=== PATIENT | female | born 1970 | race African-American/Black ===

== ENCOUNTER 2016-08-03 16:12 | Emergency (ER) | payer MEDICARE, MEDICAID ==
[~2016-08-03] VITALS: Ht 175.3 cm; Wt 72.6 kg
[~2016-08-03 16:12] MED LIST: /DULO30CA OR; /FEXO18TA PO; /LANS30GR PO; /QUET10TA OR; ABIL10TA; ALLE180T33 PO; ATIV1TAB2 PO; BACL-67 PO; BACL10TA2 PO; BIOF4GEL2 TOP; COLA100C2 PO; COLA100C3 PO; CONS10SO3 PO; CONSTULOSE PO; CYMB60CA3 PO; DEPA250T32 PO; DEPA500T2 PO; DEPLIN; ESTR2TAB OR; FERR325T PO; FERR325T3 PO; FIBE625T PO; FIBERCON PO; FLON1SPR; FOLI1TAB2 PO; KARI28TA PO; LORA1TAB12 PO; LORA2TAB9 PO; MELOPOW; MILKSUS PO; MIRCETTE; MULTIVIT PO; MULTTAB24 PO; OMEG100011 PO; OMEGA 3 PO; PAXI10TA; PERI0.126 MT; PRIL20CA9 PO; QUET30TA OR; RYZOLT PO; SERO1TAB2 PO; SERO400T3 PO; SING10TA32 PO; TOPA200T6 PO; TOPI200T PO; TRAM300T9 PO; ULTRTA; VALI10TA PO; VITA250T PO; VITA500T88 PO; [UNRECOGNIZED DRUG - OTHER]; [UNRECOGNIZED DRUG - OTHER]; [UNRECOGNIZED DRUG - OTHER] PR; [UNRECOGNIZED DRUG - OTHER] TOP
[2016-08-03 17:40] LABS: BASO % 0.4 % (0.0-1.0); EOS % 0.7 % (0.0-3.0); LARGE UNSTAINED CELL # 0.2 K/mm3 (0.0-0.4); LARGE UNSTAINED CELL % 2.7 % (0.0-4.0); LYMPH # 2.5 K/mm3 (1.5-4.5); LYMPH % 43.7 % (24.0-44.0); MEAN CORPUSCULAR HGB CONC 30.9 g/dl (32.0-36.5); MONO # 0.4 K/mm3 (0.0-0.8); MONO % 7.6 % (0.0-5.0); NEUTROPHILS # 2.5 K/mm3 (1.8-7.7); NEUTROPHILS % 44.9 % (36.0-66.0); PLATELET COUNT, AUTOMATED 193 k/mm3 (150-450); RED CELL DISTRIBUTION WIDTH 12.7 % (11.5-14.5); WHITE BLOOD COUNT 5.4 K/mm3 (4.0-10.0)
[2016-08-03 18:05] LABS: ANION GAP 4 MEQ/L (8-16); BLOOD UREA NITROGEN 13 MG/DL (7-18); CALCIUM LEVEL 9.3 MG/DL (8.5-10.1); CARBON DIOXIDE LEVEL 29 MEQ/L (21-32); CHLORIDE LEVEL 109 MEQ/L (98-107); CREATININE FOR GFR 0.78 MG/DL (0.55-1.02); GLOMERULAR FILTRATION RATE > 60.0 (>58); GLUCOSE, FASTING 100 MG/DL (70-105); POTASSIUM SERUM 4.4 MEQ/L (3.5-5.1); SODIUM LEVEL 142 MEQ/L (136-145)
[2016-08-03 19:31] VITALS: BP 155/92
== END 2016-08-03 19:32 | disposition home or self-care (01) ==
LOC: M ED 17:59
DX: R68.0 Hypothermia, not associated with low environmental temperature (principal); F41.9 Anxiety disorder, unspecified; F78 Other intellectual disabilities; Z79.899 Other long term (current) drug therapy; Z79.891 Long term (current) use of opiate analgesic

== ENCOUNTER → 2016-08-04 | Day surgery (SDC) | payer MEDICARE, MEDICAID ==
[~2016-08-04] VITALS: Ht 165.1 cm; Wt 74.8 kg
[~2016-08-04] MED LIST changes: +LIDOCAINE 2% W/ EPINEPHRINE 1.7 ML DENTAL INJ As Ordered ONE; +LR 1,000 ML IV SCH; +MIDAZOLAM INJ 2 MG/2 ML VIAL (J2250) As Ordered ONE; +ONDANSETRON 4MG/2ML VIAL (J2405) As Ordered ONE; +ONDANSETRON 4MG/2ML VIAL (J2405) IV PRN; +OXYMETAZOLINE NASAL SPRAY (AFRIN) As Ordered ONE; +PERCOCET 5MG/325MG TAB PO PRN; +PROPOFOL 200 MG/20 ML VIAL As Ordered ONE; +ROCURONIUM BROMIDE 50 MG/5 ML VIAL As Ordered ONE; +dexameTHASONE 4 MG/ML 1ML VIAL (J1100) As Ordered ONE; +fentaNYL 100 MCG/2 ML INJECTION (J3010) IV PRN; +fentaNYL 250 MCG/5 ML INJECTION (J3010) As Ordered ONE
[2016-08-04] MEDS: LR 1,000 ML IV SCH ×2 (10:42→11:04)
[2016-08-04 11:42] VITALS: BP 128/84
--- NOTE | 2016-08-04 16:58 | RO ---
DATE OF PROCEDURE: 08/04/2016 PREOPERATIVE DIAGNOSIS: Carious and nonrestorable tooth 19. POSTOPERATIVE DIAGNOSIS: Carious and nonrestorable tooth 19. PROCEDURE PERFORMED: Surgical removal of tooth 19. SURGEON: Dr. Silva EDUCATIONAL PROGRAM DIRECTOR: ANESTHESIA: General endotracheal. INDICATIONS: The patient is a 46-year-old female client of the [facility] ([facility]) who presents with a history of being mentally challenged with osteoarthritic on multiple medications. Due to the extent of the procedure to be performed it was felt necessary to be performed in the operating room under general anesthesia. DESCRIPTION OF PROCEDURE: The patient was brought to the operating room (OR) per anesthesia and placed supine upon the OR table, wherein general endotracheal anesthesia was undertaken without difficulty. After sterile prep for an intraoral procedure was performed, a throat pack was placed. 2% Xylocaine with 1:100,000 ep[address] was injected by way by of infiltration fashion, approximately 1.5 mL. Attention turned to the area of tooth 19. A #15 scalpel blade used to make a buccal sulcular mucoperiosteal incision carried from 18 forward to the area of 20. Full thickness flap was then raised with a periosteal elevator, exposing the area of the broken-down remaining crown and retrained roots. Heavy carious portions of the crown were removed and the root structures were then elevated and removed without difficulty. The bone was smoothed. The socket was lightly curetted lightly and irrigated. The tissues were then closed with Gelfoam and #3-0 gut interrupted suture times two for hemostasis. At the termination of the procedure , the oropharynx was inspected and found to be free of debris. The throat pack was removed per anesthesia and the patient was awakened. ESTIMATED BLOOD LOSS: Approximately minimal. It was less than10 mL. FLUIDS: 700 mL crystalloid solution. Needle and sponge counts were correct. The tooth was sent for identification to pathology. DISPOSITION: The patient was extubated in the operating room and taken to the recovery room breathing spontaneously in stable condition. JUSTIN
== END | disposition home or self-care (01) ==
LOC: M SDC 08:30
PROVIDERS: ATTEND Dentist Oral and Maxillofacial Surgery
DX: K03.81 Cracked tooth (principal); K08.3 Retained dental root; F79 Unspecified intellectual disabilities; M17.0 Bilateral primary osteoarthritis of knee; G89.29 Other chronic pain; K59.09 Other constipation; K21.9 Gastro-esophageal reflux disease without esophagitis; D50.9 Iron deficiency anemia, unspecified; Z79.899 Other long term (current) drug therapy
CPT/HCPCS: 41899; 88300; J1100; J2250; J2405; J3010

== ENCOUNTER → 2016-09-01 | Outpatient (CLI) | payer MEDICARE, MEDICAID ==
[~2016-09-01] MED LIST changes: -LIDOCAINE 2% W/ EPINEPHRINE 1.7 ML DENTAL INJ As Ordered ONE; -LR 1,000 ML IV SCH; -MIDAZOLAM INJ 2 MG/2 ML VIAL (J2250) As Ordered ONE; -ONDANSETRON 4MG/2ML VIAL (J2405) As Ordered ONE; -ONDANSETRON 4MG/2ML VIAL (J2405) IV PRN; -OXYMETAZOLINE NASAL SPRAY (AFRIN) As Ordered ONE; -PERCOCET 5MG/325MG TAB PO PRN; -PROPOFOL 200 MG/20 ML VIAL As Ordered ONE; -ROCURONIUM BROMIDE 50 MG/5 ML VIAL As Ordered ONE; -dexameTHASONE 4 MG/ML 1ML VIAL (J1100) As Ordered ONE; -fentaNYL 100 MCG/2 ML INJECTION (J3010) IV PRN; -fentaNYL 250 MCG/5 ML INJECTION (J3010) As Ordered ONE
--- NOTE | 2016-09-01 12:46 | REPMRS ---
Patient History The patient states she had a clinical breast exam in 09/13 Patient is postmenopausal. No known family history of cancer. Taking hormonal contraceptives for 16 years. Digital Woman Screen Mammo: September 01, 2016 - Exam #: [id number] Bilateral CC and MLO view(s) were taken. Technologist: Haley Alexander, Technologist Prior study comparison: September 03, 2015, digital woman screen mammo performed at [facility]. August 21, 2014, digital woman screen mammo performed at [facility]. FINDINGS: There are scattered fibroglandular densities. There has been no change in the appearance of the mammogram from the prior studies. There is a mild amount of residual fibroglandular tissue which is fairly symmetric. There is no interval development of dominant mass, architectural distortion, or clustered microcalcification suggestive of malignancy. ASSESSMENT: BI-RADS/ACR category 1 mammogram. Negative. Recommendation Routine screening mammogram in 1 year (for women over age 40). This mammogram was interpreted with the aid of an FDA-approved computer-aided dectection system. Electronically Signed By: Ezio Piper MD 09/01/16 5227
== END ==
LOC: M WHC 10:07
PROVIDERS: ATTEND Nurse Practitioner Family
DX: Z01.419 Encounter for gynecological examination (general) (routine) without abnormal findings (principal); Z12.31 Encounter for screening mammogram for malignant neoplasm of breast; Z78.0 Asymptomatic menopausal state; Z92.0 Personal history of contraception; Z79.899 Other long term (current) drug therapy; N91.2 Amenorrhea, unspecified
CPT/HCPCS: G0101; G0202

== ENCOUNTER 2017-09-26 08:35 | Day surgery (SDC) | payer MEDICARE, MEDICAID ==
[~2017-09-26 08:35] MED LIST changes: -/DULO30CA OR; -/FEXO18TA PO; -/LANS30GR PO; -/QUET10TA OR; -ABIL10TA; +ACETAMINOPHEN 325 MG TAB PO; -ALLE180T33 PO; -ATIV1TAB2 PO; -BACL-67 PO; -BACL10TA2 PO; -BIOF4GEL2 TOP; -COLA100C2 PO; -COLA100C3 PO; -CONS10SO3 PO; -CONSTULOSE PO; -CYMB60CA3 PO; -DEPA250T32 PO; -DEPA500T2 PO; -DEPLIN; -ESTR2TAB OR; -FERR325T PO; -FERR325T3 PO; -FIBE625T PO; -FIBERCON PO; -FLON1SPR; -FOLI1TAB2 PO; -KARI28TA PO; -LORA1TAB12 PO; -LORA2TAB9 PO; -MELOPOW; -MILKSUS PO; -MIRCETTE; -MULTIVIT PO; -MULTTAB24 PO; -OMEG100011 PO; -OMEGA 3 PO; -PAXI10TA; -PERI0.126 MT; +PHENYLEPHRINE HCL 10 % OPHTH. SOL 5ML OD; -PRIL20CA9 PO; -QUET30TA OR; -RYZOLT PO; -SERO1TAB2 PO; -SERO400T3 PO; -SING10TA32 PO; -TOPA200T6 PO; -TOPI200T PO; -TRAM300T9 PO; -ULTRTA; -VALI10TA PO; -VITA250T PO; -VITA500T88 PO; -[UNRECOGNIZED DRUG - OTHER]; -[UNRECOGNIZED DRUG - OTHER]; -[UNRECOGNIZED DRUG - OTHER] PR; -[UNRECOGNIZED DRUG - OTHER] TOP
[2017-09-26] MEDS ORDERED: PHENYLEPHRINE 2.5% OPHTH SOL 2ML As Ordered (08:55)
[2017-09-26] MEDS ORDERED: OFLOXACIN 0.3 % (OCUFLOX) OPTH SOL 5ML As Ordered (08:55)
[2017-09-26] MEDS ORDERED: TROPICAMIDE 1% OPHTH SOLN 2ML As Ordered (08:55)
[2017-09-26] MEDS ORDERED: CYCLOPENTOLATE 2% OPHTH SOLN 2ML BTL As Ordered (08:55)
[2017-09-26] MEDS ORDERED: diazePAM 5 MG TAB As Ordered (09:19)
[2017-09-26] MEDS: TROPICAMIDE 1% OPHTH SOLN 2ML OD (09:33)
[2017-09-26] MEDS: LIDOCAINE 3.5 % 1ML OPHTH TOPICAL GEL OU (09:33)
[2017-09-26] MEDS: OFLOXACIN 0.3 % (OCUFLOX) OPTH SOL 5ML OD (09:33)
[2017-09-26] MEDS: CYCLOPENTOLATE 2% OPHTH SOLN 2ML BTL OD (09:33)
[2017-09-26] MEDS: PHENYLEPHRINE 2.5% OPHTH SOL 2ML OD (09:33)
[2017-09-26] MEDS ORDERED: PROPOFOL 200 MG/20 ML VIAL As Ordered ×2 (09:40→10:05)
[2017-09-26] MEDS ORDERED: diazePAM 5 MG TAB PO (10:00)
[2017-09-26] MEDS: TRIAMCINOLONE PRES FR 40 MG/ML 1ML(TRIESENCE)(OR EYE ONLY)(J3300 PER 1MG) As Ordered (10:19)
[2017-09-26] MEDS: MOXIFLOXACIN IN BSS 0.25MG/0.25ML INTRACAMERAL INJ (OR EYE ONLY)(J2280) As Ordered (10:19)
[2017-09-26] MEDS: HEALON DUET (HEALON 10MG/ML 0.55ML & HEALON ENDOCOAT 30MG/ML 0.85ML) As Ordered (10:19)
[2017-09-26] MEDS: LIDOCAINE 1% SDV 5 ML VIAL As Ordered (10:19)
[2017-09-26] MEDS: POVIDONE-IODINE 5% OPHTH PREP SOL 30ML As Ordered (10:19)
[2017-09-26] MEDS: BSS with VANC/TOB/EPI for EYE CASES IR (10:19)
[2017-09-26] MEDS ORDERED: LR 1,000 ML IV (11:00)
[2017-09-26] MEDS ORDERED: AcetaZOLAMIDE 500 MG ER CAP As Ordered (11:17)
[2017-09-26] MEDS: AcetaZOLAMIDE 500 MG ER CAP PO (11:27)
[2017-09-26] MEDS ORDERED: TRIMETHOBENZAMIDE 300 MG CAP PO (12:15)
== END 2017-09-26 12:00 | disposition home or self-care (01) ==
LOC: M SDC 08:35
DX: H25.9 Unspecified age-related cataract (principal); F71 Moderate intellectual disabilities; E03.9 Hypothyroidism, unspecified; K21.9 Gastro-esophageal reflux disease without esophagitis; D64.9 Anemia, unspecified; F41.9 Anxiety disorder, unspecified; F32.9 Major depressive disorder, single episode, unspecified; Z79.899 Other long term (current) drug therapy
CPT/HCPCS: 66984

== ENCOUNTER 2017-10-24 08:11 | Day surgery (SDC) | payer MEDICARE, MEDICAID ==
[~2017-10-24 08:11] MED LIST changes: -PHENYLEPHRINE HCL 10 % OPHTH. SOL 5ML OD; +PHENYLEPHRINE HCL 10 % OPHTH. SOL 5ML OS
[2017-10-24] MEDS ORDERED: TROPICAMIDE 1% OPHTH SOLN 2ML As Ordered (09:14)
[2017-10-24] MEDS ORDERED: CYCLOPENTOLATE 2% OPHTH SOLN 2ML BTL As Ordered (09:14)
[2017-10-24] MEDS ORDERED: OFLOXACIN 0.3 % (OCUFLOX) OPTH SOL 5ML As Ordered (09:14)
[2017-10-24] MEDS ORDERED: PHENYLEPHRINE 2.5% OPHTH SOL 2ML As Ordered (09:15)
[2017-10-24] MEDS: PHENYLEPHRINE 2.5% OPHTH SOL 2ML OS (09:25)
[2017-10-24] MEDS: TROPICAMIDE 1% OPHTH SOLN 2ML OS (09:25)
[2017-10-24] MEDS: OFLOXACIN 0.3 % (OCUFLOX) OPTH SOL 5ML OS (09:25)
[2017-10-24] MEDS: LIDOCAINE 3.5 % 1ML OPHTH TOPICAL GEL OU (09:25)
[2017-10-24] MEDS: CYCLOPENTOLATE 2% OPHTH SOLN 2ML BTL OS (09:25)
[2017-10-24] MEDS: POVIDONE-IODINE 5% OPHTH PREP SOL 30ML As Ordered (10:17)
[2017-10-24] MEDS: MOXIFLOXACIN IN BSS 0.25MG/0.25ML INTRACAMERAL INJ (OR EYE ONLY)(J2280) As Ordered (10:19)
[2017-10-24] MEDS: BSS with VANC/TOB/EPI for EYE CASES IR (10:19)
[2017-10-24] MEDS: TRIAMCINOLONE PRES FR 40 MG/ML 1ML(TRIESENCE)(OR EYE ONLY)(J3300 PER 1MG) As Ordered (10:19)
[2017-10-24] MEDS: LIDOCAINE 1% SDV 5 ML VIAL As Ordered (10:19)
[2017-10-24] MEDS: HEALON DUET (HEALON 10MG/ML 0.55ML & HEALON ENDOCOAT 30MG/ML 0.85ML) As Ordered (10:19)
[2017-10-24] MEDS ORDERED: MIDAZOLAM INJ 2 MG/2 ML VIAL (J2250) As Ordered (10:50)
[2017-10-24] MEDS ORDERED: fentaNYL 100 MCG/2 ML INJECTION (J3010) As Ordered (10:50)
[2017-10-24] MEDS ORDERED: TRIMETHOBENZAMIDE 300 MG CAP PO (11:30)
[2017-10-24] MEDS ORDERED: AcetaZOLAMIDE 500 MG ER CAP PO (11:30)
== END 2017-10-24 11:34 | disposition home or self-care (01) ==
LOC: M SDC 08:11
DX: H25.9 Unspecified age-related cataract (principal); E03.9 Hypothyroidism, unspecified; K21.9 Gastro-esophageal reflux disease without esophagitis; D64.9 Anemia, unspecified; F41.9 Anxiety disorder, unspecified; F32.9 Major depressive disorder, single episode, unspecified; F71 Moderate intellectual disabilities; Z79.899 Other long term (current) drug therapy
CPT/HCPCS: 66984

== ENCOUNTER → 2017-11-28 | Outpatient (CLI) | payer MEDICARE, MEDICAID | LOC: M WHC 13:13 | DX: Z12.31 Encounter for screening mammogram for malignant neoplasm of breast (principal); Z01.419 Encounter for gynecological examination (general) (routine) without abnormal findings (principal); Z78.0 Asymptomatic menopausal state; Z79.3 Long term (current) use of hormonal contraceptives | CPT/HCPCS: 77067 ==

== ENCOUNTER → 2017-12-06 | Outpatient (CLI) | payer MEDICARE, MEDICAID | LOC: M WHC 14:47 | DX: D25.2 Subserosal leiomyoma of uterus (principal) | CPT/HCPCS: 76830 ==

== ENCOUNTER → 2018-11-29 | Outpatient (CLI) | payer MEDICARE, MEDICAID ==
[~2018-11-29] MED LIST changes: +/FEXO18TA PO; +/LANS30GR PO; +ABIL10TA; -ACETAMINOPHEN 325 MG TAB PO; +ALLE180T33 PO; +ATIV1TAB2 PO; +BACL10TA2 PO; +BACL1TAB9 PO; +BIOF4GEL2 TOP; +COLA100C2 PO; +COLA100C5 PO; +CONS10SO3 PO; +CONSTULOSE PO; +CYMB1CAP5 OR; +CYMB60CA3 PO; +DEPA250T32 PO; +DEPA500T2 PO; +DEPLIN; +ESTR2TAB OR; +FERR325T PO; +FERR325T3 PO; +FIBE625T PO; +FIBERCON PO; +FLON1SPR; +FOLI1TAB11 PO; +KARI28TA PO; +LEVO100T5 PO; +LEVO112T2 PO; +LINZ145C PO; +LORA1TAB4 PO; +LORA2TAB14 PO; +MELOPOW; +MILKSUS PO; +MIRA3350 PO; +MIRA33504 PO; +MIRCETTE; +MULTIVIT PO; +MULTTAB24 PO; +OMEG100011 PO; +OMEGA 3 PO; +OMEP40CA97 PO; +PAXI10TA; +PERI0.126 MT; -PHENYLEPHRINE HCL 10 % OPHTH. SOL 5ML OS; +PRIL20CA9 PO; +QUET30TA OR; +RISP1TAB42 PO; +RYZOLT PO; +SERO1TAB OR; +SERO1TAB2 PO; +SERO400T4 PO; +SING10TA32 PO; +TOPA200T7 PO; +TOPI200T PO; +TRAM300T9 PO; +ULTRTA; +VALI10TA PO; +VITA250T PO; +VITA500T88 PO; +[UNRECOGNIZED DRUG - OTHER]; +[UNRECOGNIZED DRUG - OTHER]; +[UNRECOGNIZED DRUG - OTHER] PR; +[UNRECOGNIZED DRUG - OTHER] TOP
--- NOTE | 2018-11-29 15:09 | REP ---
BILATERAL SCREENING DIGITAL MAMMOGRAM WITHOUT 3D TOMOSYNTHESIS: There are no palpable abnormalities or other breast complaints. The Tyrer-Cuzick Score is: 7.2% . Comparison is 08/18/2013. There are scattered areas of fibroglandular density. There is no dominant mass, micro calcific cluster or architectural distortion that would indicate malignancy. There is no change from the prior study. Impression: BIRADS/ACR category 1 mammogram. Negative. Recommendation: Routine annual screening mammography. This mammogram was interpreted with the aid of a FDA approved computer-aided detection system. A. Negative mammogram reports should not delay biopsy if a dominant or clinically suspicious mass is present. B. Not all breast cancers are identified by mammography or tomosynthesis. C. Adenosis and dense breasts may obscure an underlying neoplasm. Patient letter M1. Electronically Signed by Ezio Brower MD 11/29/2018 03:01 P
== END ==
LOC: M WHC 13:24
PROVIDERS: ATTEND Nurse Practitioner Family
DX: Z01.419 Encounter for gynecological examination (general) (routine) without abnormal findings (principal); Z12.31 Encounter for screening mammogram for malignant neoplasm of breast
CPT/HCPCS: 77067; G0101

== ENCOUNTER 2019-01-20 07:49 | Day surgery (SDC) | payer MEDICARE, MEDICAID ==
[~2019-01-20] VITALS: Ht 160 cm; Wt 69.6 kg
[~2019-01-20 07:49] MED LIST changes: +LORA1TAB12 PO; -LORA1TAB4 PO; -LORA2TAB14 PO; +LORA2TAB9 PO; +NS 1,000 ML IV ONE; +OMEP40CA2 PO; -OMEP40CA97 PO
[2019-01-20] MEDS ORDERED: LIDOCAINE 2% INJ 100 MG/5 ML SDV (FOR ANES.) As Ordered ONE (09:09)
[2019-01-20] MEDS ORDERED: PROPOFOL 200 MG/20 ML VIAL As Ordered ONE (09:09)
--- NOTE | 2019-01-20 10:48 | ROOR ---
Patient Name: Leah Bryant Procedure Date: 01/20/2019 10:10 AM Date of : 1970 Age: 48 Room: [facility] Gender: Female Note Status: Finalized Procedure: Total Colonoscopy to Cecum + Cold Snare Polypectomy + Hemoclips Indications: Screening for colorectal malignant neoplasm Providers: Aaron Alanis MD Referring MD: CUBA AMAYA MD Requesting Provider: Medicines: Monitored Anesthesia Care Complications: No immediate complications. Procedure: Pre-Anesthesia Assessment: - The heart rate, respiratory rate, oxygen saturations, blood pressure, adequacy of pulmonary ventilation, and response to care were monitored throughout the procedure. The Colonoscope was introduced through the anus and advanced to the cecum, identified by appendiceal orifice and ileocecal valve. The colonoscopy was performed without difficulty. The patient tolerated the procedure well. The quality of the bowel preparation was excellent. Findings: The perianal and digital rectal examinations were normal. Non-bleeding internal hemorrhoids were found during retroflexion. The hemorrhoids were small and Grade I (internal hemorrhoids that do not prolapse). A small polyp was found in the transverse colon. The polyp was sessile. The polyp was removed with a cold snare. Resection and retrieval were complete. To prevent bleeding after the polypectomy, one hemostatic clip was successfully placed (MR conditional). There was no bleeding at the end of the procedure. A moderate amount of stool was found in the entire colon, precluding visualization. The exam was otherwise without abnormality on direct and retroflexion views. Impression: - Non-bleeding internal hemorrhoids. - One small polyp in the transverse colon, removed with a cold snare. Resected and retrieved. Clip (MR conditional) was placed. - Stool in the entire examined colon. - The examination was otherwise normal on direct and retroflexion views. - The exam was otherwise normal to the cecum. Recommendation: - Patient has a contact number available for emergencies. The signs and symptoms of potential delayed complications were discussed with the patient. Return to normal activities tomorrow. Written discharge instructions were provided to the patient. - High fiber diet. - Discharge patient to home. - Continue present medications. - Await pathology results. - Telephone GI clinic for pathology results in 1 week. - Repeat colonoscopy in 5 years for surveillance based on pathology results. - Return to referring physician. - The findings and recommendations were discussed with the patient's family. Aaron Alanis MD Aaron Alanis MD 01/20/2019 10:48:20 AM Electronically signed by Aaron Alanis MD Number of Addenda: 0 Note Initiated On: 01/20/2019 10:10 AM Estimated Blood Loss: Estimated blood loss: none.
[2019-01-20 11:07] VITALS: BP 151/85
== END 2019-01-20 11:09 | disposition home or self-care (01) ==
LOC: M OPP 07:49
PROVIDERS: ATTEND Internal Medicine Gastroenterology
DX: Z12.11 Encounter for screening for malignant neoplasm of colon (principal); K64.0 First degree hemorrhoids; D12.3 Benign neoplasm of transverse colon; Z79.2 Long term (current) use of antibiotics; Z79.891 Long term (current) use of opiate analgesic; Z79.899 Other long term (current) drug therapy

== ENCOUNTER → 2019-12-02 | Outpatient (CLI) | payer MEDICARE, MEDICAID ==
[~2019-12-02] MED LIST changes: -LORA1TAB12 PO; +LORA1TAB4 PO; +LORA2TAB14 PO; -LORA2TAB9 PO; -NS 1,000 ML IV ONE; -OMEP40CA2 PO; +OMEP40CA97 PO
--- NOTE | 2019-12-24 09:48 | REPMRS ---
Patient History The patient states she had a clinical breast exam in 11/2019. Patient is postmenopausal. No known family history of cancer. Taking hormonal contraceptives for 19 years. Digital Woman Screen Mammo: December 02, 2019 - Exam #: [id number] Bilateral CC and MLO view(s) were taken. Technologist: Devorah Hyman, Technologist Prior study comparison: November 29, 2018, bilateral digital woman screen mammo performed at [facility]. November 28, 2017, bilateral digital woman screen mammo performed at [facility]. September 01, 2016, digital woman screen mammo performed at [facility]. FINDINGS: There are scattered fibroglandular densities. The Volpara volumetric breast density category is:B. There has been no change in the appearance of the mammogram from the prior studies. There is a mild amount of scattered fibroglandular density which is fairly symmetric. There is no interval development of dominant mass, architectural distortion, or grouped microcalcification suggestive of malignancy. Assessment: BI-RADS/ACR category 1 mammogram. Negative Mammogram. Recommendation Routine screening mammogram of both breasts in 1 year (for women over age 40). This patient's Lifetime Breast Cancer Risk is estimated at 7.1 %. This mammogram was interpreted with the aid of an FDA-approved computer-aided dectection system. Electronically Signed By: Ra Soriano MD 12/24/19 0941
== END ==
LOC: M WHC 17:27
PROVIDERS: ATTEND Nurse Practitioner Family
DX: Z12.31 Encounter for screening mammogram for malignant neoplasm of breast (principal); Z78.0 Asymptomatic menopausal state
CPT/HCPCS: 77063; 77067; G0463

== ENCOUNTER → 2020-10-13 | Outpatient (CLI) | payer MEDICARE, MEDICAID ==
[~2020-10-13] MED LIST changes: +ACET325C5 PO; +ATIV1TAB7 PO; +COVI100V IM; +CVS13CRE TOP; +DEBR6.5S4 OTIC; +DOK1CAP7 PO; +FIBE62TA FT; +GUAI100L6 PO; +IBUP200C25 PO; +TRIPOIN4 EX
--- NOTE | 2020-10-13 17:17 | REP ---
INDICATION: DYSPHAGIA. COMPARISON: None. TECHNIQUE: The procedure was performed by MIEK Pérez, under the direct supervision of Dr. Piper. The procedure was performed with Thao Diallo from speech pathology present. 5 ml aliquots of thin, pudding, mixed fruit, soft food, honey thick, nectar thick, and applesauce consistency barium was administered. FINDINGS: No penetration or aspiration was visualized during this exam. The detailed report of this examination will be provided by speech pathology. IMPRESSION: Unremarkable cookie swallow, a detailed report will be provided by speech pathology. 1.6 minutes of fluoroscopy time was utilized for this procedure. Some fluoroscopic images are performed with last image hold technology. These images require no additional radiation <Electronically signed by Chantal Moreira > 10/13/20 1622 <Electronically signed by Ezio Piper > 10/13/20 1715
== END ==
LOC: M ST 15:05
DX: R13.10 Dysphagia, unspecified (principal)

== ENCOUNTER 2020-12-30 15:20 | Emergency (ER) | payer MEDICARE, MEDICAID ==
[~2020-12-30] VITALS: Ht 165.1 cm; Wt 65.9 kg
[~2020-12-30 15:20] MED LIST changes: +DOK1CAP4 PO; -DOK1CAP7 PO; +NEOM14OI EX; +OMEP40CA4 PO; -OMEP40CA97 PO; -TRIPOIN4 EX
--- NOTE | 2020-12-30 16:24 | REP ---
INDICATION: right knee pain; s/p fall COMPARISON: None. TECHNIQUE: Four views right knee. FINDINGS: There is superior dislocation of the patella, consistent with a complete tear of the patellar tendon. A smoothly marginated calcification is seen just inferior to the lower pole of the patella measuring 6 mm in diameter. This may represent a tendinous calcification. The visualized osseous structures otherwise demonstrate no acute fracture. IMPRESSION: Superior dislocation of the patella consistent with complete tear of the patellar tendon. <Electronically signed by Ezio Piper > 12/30/20 7930
--- NOTE | 2020-12-30 16:24 | REP ---
INDICATION: abdominal distention; r/o obstruction. COMPARISON: None. TECHNIQUE: Cross-table lateral and supine films of abdomen and pelvis. FINDINGS: The images demonstrate no evidence of free intraperitoneal air. Moderate fecal material seen throughout the colon. There is no compelling radiographic evidence of small bowel obstruction. No abnormal calcifications are seen. IMPRESSION: Moderate fecal retention without evidence of free air or obstruction. <Electronically signed by Ezio Piper > 12/30/20 8962
[2020-12-30 18:19] VITALS: BP 105/74
== END 2020-12-30 18:23 | disposition home or self-care (01) ==
LOC: M ED 15:20 → EDBD 15:20 → M ED 18:23
DX: K50.918 Crohn's disease, unspecified, with other complication (principal); K59.00 Constipation, unspecified; S83.004A Unspecified dislocation of right patella, initial encounter; W19.XXXA Unspecified fall, initial encounter; Y92.89 Other specified places as the place of occurrence of the external cause; Y93.89 Activity, other specified; Y99.8 Other external cause status; F79 Unspecified intellectual disabilities; E03.9 Hypothyroidism, unspecified; F41.9 Anxiety disorder, unspecified; F33.9 Major depressive disorder, recurrent, unspecified; Z79.890 Hormone replacement therapy; Z79.899 Other long term (current) drug therapy

== ENCOUNTER 2021-01-31 14:42 | Emergency (ER) | payer MEDICARE, MEDICAID ==
[~2021-01-31] VITALS: Ht 165.1 cm; Wt 70.5 kg
[~2021-01-31 14:42] MED LIST changes: +EUTH112T PO
[2021-01-31 17:11] LABS: RSV AMPLIFICATION NEGATIVE (NEGATIVE)
[2021-01-31 17:40] VITALS: BP 114/90
== END 2021-01-31 17:52 | disposition home or self-care (01) ==
LOC: M ED 14:42
DX: Z20.822 Contact with and (suspected) exposure to COVID-19 (principal); R19.7 Diarrhea, unspecified; E28.2 Polycystic ovarian syndrome; F79 Unspecified intellectual disabilities; Z79.899 Other long term (current) drug therapy

== ENCOUNTER → 2021-02-11 | Outpatient (CLI) | payer MEDICARE, MEDICAID ==
[~2021-02-11] MED LIST changes: +BISA10EN PR; +DULO60CA35 PO; +ESOM40CA35 PO; +FLEEENE12 PR; +FLEETOIL PR; +LINZ290C PO; +MILK400S12 PO; +RISP-7 PO; +SENN-123 PO; +SENN8.6T28 PO
[2021-02-11 11:46] LABS: HEMATOCRIT 35.4 % (36.0-47.0); HEMOGLOBIN 10.7 g/dl (12.0-15.5); MEAN CORPUSCULAR HEMOGLOBIN 29.2 pg (27.0-33.0); MEAN CORPUSCULAR HGB CONC 30.2 g/dl (32.0-36.5); MEAN CORPUSCULAR VOLUME 96.7 fl (80.0-96.0); PLATELET COUNT, AUTOMATED 167 10^3/uL (150-450); RED BLOOD COUNT 3.66 10^6/uL (4.00-5.40); WHITE BLOOD COUNT 5.3 10^3/uL (4.0-10.0)
[2021-02-11 12:20] LABS: ALT/SGPT 107 U/L (12-78); BILIRUBIN,TOTAL 0.1 MG/DL (0.2-1.0); BLOOD UREA NITROGEN 15 MG/DL (7-18); C REACTIVE PROTEIN QUANTITATIV 1.36 MG/DL (0.00-0.30); CALCIUM LEVEL 10.1 MG/DL (8.5-10.1); CARBON DIOXIDE LEVEL 33 MEQ/L (21-32); CHLORIDE LEVEL 110 MEQ/L (98-107); CPK CREATINE PHOSPHOKINASE 49 U/L (26-192); CREATININE FOR GFR 0.64 MG/DL (0.55-1.30); EOSINOPHILS 1 % (0-3); FERRITIN 1441 NG/ML (8-252); FOLATE > 24.0 NG/ML (>5.4); FREE T3 2.9 PG/ML (2.2-4.0); FREE T4 1.32 NG/DL (0.76-1.46); GLOMERULAR FILTRATION RATE > 60.0 (>51); GLUCOSE, FASTING 66 MG/DL (70-100); IRON (FE) 180 UG/DL (50-170); LYMPHOCYTES 42 % (16-44); MAGNESIUM LEVEL 1.9 MG/DL (1.8-2.4); MONOCYTES 12 % (0-5); NEUTROPHILS 45 % (28-66); PERCENT SATURATION 95.2 % (13.2-45.0); PLATELET ESTIMATE NORMAL (NORMAL); POTASSIUM SERUM 4.8 MEQ/L (3.5-5.1); SODIUM LEVEL 144 MEQ/L (136-145); THYROID STIMULATING HORMONE 0.102 uIU/ML (0.358-3.740); TOTAL IRON BINDING CAPACITY 189 UG/DL (250-450); TOTAL PROTEIN 7.3 GM/DL (6.4-8.2); VITAMIN B12 LEVEL 1157 PG/ML (247-911)
[2021-02-11 12:22] LABS: ERYTHROCYTE SEDIMENTATION RATE 45 mm/hr (0-30)
[2021-02-14 21:07] LABS: CK 1 (BB) 0 % (0); CK 2 (MB) 0 % (0-3); CK 3 (MM) 100 % (97-100); CK MACRO I PERCENT 0 % (Not Observed); CK MACRO II PERCENT 0 % (Not Observed); CK TOTAL 46 U/L (32-182); TOPIRAMATE LEVEL 6.5 ug/mL (2.0-25.0)
== END ==
LOC: M LAB 10:54
PROVIDERS: ATTEND Registered Nurse
DX: R53.83 Other fatigue (principal)

== ENCOUNTER 2021-02-12 19:53 | Inpatient (IN) | payer MEDICARE, MEDICAID ==
[~2021-02-12] VITALS: Ht 165.1 cm; Wt 59.0 kg
[~2021-02-12 19:53] MED LIST changes: -BISA10EN PR; -CYMB60CA3 PO; +CYMB60CA4 PO; -DULO60CA35 PO; -ESOM40CA35 PO; -FLEEENE12 PR; -FLEETOIL PR; -LINZ290C PO; -MILK400S12 PO; -RISP-7 PO; -SENN-123 PO; -SENN8.6T28 PO
[2021-02-12] MEDS ORDERED: NS 1,000 ML IV ONE (21:00)
--- OUTSIDE RECORDS SUMMARY | 2021-02-12 21:12 | CCD | Continuity of Care Document ---
Author Author Leah FUNES PA-C Organization Unknown Address [address] [place] [address] Phone [phone] Care Team Providers Care Aviation Boatswain'S Mate Name Role Phone Charline Merino PUMP MECHANIC AUTM [phone] Problems Description No Active Problems Social History Type Date Description Comments Sex Unknown ETOH Use Denies alcohol use Tobacco Use Start: Unknown Denies Smoking Allergies, Adverse Reactions, Alerts Description No Known Drug Allergies Medications Active Medications SIG Qnty Indications Ordering Provide r Date Topamax 200mg Tablets 1 by mouth every night at bedtime Unknown Risperdal 1mg Tablets Unknown Levothyroxine Sodium 112mcg Tablet s 1 by mouth every day Unknown Montelukast Sodium 10mg Tablets take one tablet by mouth at bedtime Unknown Azurette 0.15-0.02/0.01 mg (21/5) Tablets Unknown Afton-3 1000mg Capsules 1 by mouth every day Unknown Ferrous Fumarate 324(106Fe) mg Tab lets take one tablet by mouth three times a day Unkno wn Vitamin C 500mg Tablets 1 by mouth every day in in the morning Unknown Lorazepam 2mg Tablets 1 tab by mouth twice a day Unknown Tramadol HCL 50mg Tablets 1 every 4-6 hours as needed pain Unknown Omeprazole 40mg Capsules DR 1 by mouth every day Unknown Folic Acid 1mg Tablets 1 by mouth every day Unknown Singulair 10mg Tablets take one tablet by mouth at bedtime Unknown Cymbalta 60mg Caps DR Part 1 by mouth every day Unknown Kariva 0.15-0.02/0.01 mg (/5) Tablets Unknown Constulose 10GM/15ML Solution Unknown Valium 10mg Tablets by mouth three times a day Unknown Karolina Allergy 180mg Tablets 1 by mouth every day Unknown Fibercon 625mg Tablets Unknown Colace 100mg Capsules 1 by mouth twice a day, hold for diarrhea Unknown 0 Miralax 3350NF Packet 2 tablespoons three times a day qac and every night at bedtime Unkno wn Fluticasone Propionate 50mcg/Act Suspension 2 puffs a day Unknown Milk Of Magnesia 400mg/5ML Suspens ion take 4 tablespoon by mouth 2 days before procedure Un known Biofreeze Colorless 4% Gel Unknown Peridex 0.12% Solution Unknown Dulcolax 10mg Suppository take [address] of rectum every morning as needed as needed for constipation Unknown Fleet Enema 7-19GM/118ML Enema use as directed prior to surgery Unknown Multi-Vitamin Daily Tablets every day Unknown Immunizations Description No Information Available Vital Signs Date Vital Result Comment 12/15/2016 1:44pm Body Temperature 97.5 F Height 65 inches 5'5" Weight 167.25 lb BMI (Body Mass Index) 27.8 kg/m2 10/23/2014 9:59am Body Temperature 98.5 F Height 65.25 inches 5'5.25" Weight 186.00 lb BMI (Body Mass Index) 30.7 kg/m2 Results Description No Information Available Procedures Date Code Description Status 01/20/2021 63351 Office/Outpatient Established Lo w MDM 20-29 Min Completed 01/20/2021 87620 X-Ray Knee Ap & Lateral Complete d Medical Devices Description No Information Available Encounters Type Date Location Provider Dx Diagnosis Office Visit 01/20/2021 9:30a Natalio Funes PA-C M66.261 Spontaneous rupture of extensor tendons, right lower leg M17.11 Unilateral primary osteoarth ritis, right knee Assessments Date Code Description Provider 01/20/2021 M66.261 Spontaneous rupture of extensor tendons, right lower leg Maty Funes PA-C 01/20/2021 M17.11 Unilateral primary osteoarthriti s, right knee Maty Funes PA-C Plan of Treatment 01/20/2021 - Maty Funes PA-C* M66.261 Spontaneous rupture of extensor tendons, right lower leg* Follow up:* prn * M17.11 Unilateral primary osteoarthritis, right knee Functional Status Description No Information Available Mental Status Description No Information Available Referrals Description No Information Available
--- OUTSIDE RECORDS SUMMARY | 2021-02-12 21:12 | CCD | Continuity of Care Document ---
Author Author Leah FUNES PA-C Organization Unknown Address [address] [place] [address] Phone [phone] Care Team Providers Care General Cleaner Name Role Phone Charline Merino NURSING PROGRAM DIRECTOR AUTM [phone] Problems Description No Active Problems Social History [...] Unknown Azurette 0.15-0.02/0.01 mg (21/5) Tablets Unknown Fisher-3 1000mg Capsules 1 by mouth every day [...] Available Procedures Date Code Description Status 01/20/2021 23919 Office/Outpatient Established Lo w MDM 20-29 Min Completed 01/20/2021 48834 X-Ray Knee Ap & Lateral Complete d [...]
--- OUTSIDE RECORDS SUMMARY | 2021-02-12 21:13 | CCD | Continuity of Care Document ---
Author Author Leah VELOZ Organization Unknown Address [address] [place], [place] [address] Phone [phone] Care Team Providers Care Book Cleaner Name Role Phone AUTM Unavailable Nani Morales Unavailable Problems Active Problems Provider Date Taking medication Rogelio Contreras PA-C Onset: 04/05/2020 Callosity under metatarsal head Marilee Wolfe Onset : 09/03/2019 Rheumatoid arthritis of multiple joints MARI Wolfe Onset: 09/03/2019 Hammer toe Marilee Wolfe Onset: 09/03/2019 Onychomycosis Marilee Wolfe Onset: 09/03/2019 Atherosclerosis of arteries of the extremities Marilee Hurtado Onset: 09/03/2019 Intermittent explosive disorder Rogelio Contreras PA-C Onset: 0 09/17/2017 Severe intellectual disability Rogelio Contreras PA-C Onset: Social History Type Date Description Comments Sex Unknown Tobacco Use Start: Unknown Never Smoked Cigarettes Tobacco Use Start: Unknown Never Smoked Cigars Tobacco Use Start: Unknown Never Smoked A Pipe Smoking Status Reviewed: 08/30/20 Never Smoked A Pipe Tobacco Use Start: Unknown Never Used Smokeless Tobacco ETOH Use Denies alcohol use Tobacco Use Start: Unknown Patient has never smoked Recreational Drug Use Denies Drug Use Allergies, Adverse Reactions, Alerts Active Allergies Criticality Reaction | Severity Comments Date NKDA Unable to assess criticality 09/27/2017 NKFA Unable to assess criticality 09/27/2017 NKEA Unable to assess criticality 09/27/2017 Medications Active Medications SIG Qnty Indications Ordering Provide r Date Colace 100mg Capsules 1 cap by mouth every night at 7pm 30caps Unknown 12/17/2020 Miralax Powder 17gm in 408 oz liquid every day as needed Unknown 12/17/2020 Milk Of Magnesia 400mg/5ML Suspens ion 30 ml by mouth as needed on day 3 of no bm Unknown 12/17/2020 Lorazepam 2mg Tablets 1 tab by mouth twice a day at 7am and 4pm 60tabs F72 Mauricio Garber MD 12/17 F63.81 Baclofen 10mg Tablets 1 tab by mouth three times a day at 6am, 12pm and 7pm 90tabs Nani Morales 12/17/2020 Esomeprazole Magnesium 40mg Capsul es DR 1 cap by mouth every other day at bedtime Unknown 12/17/2020 Risperidone 0.5mg Tablets 3 tabs by mouth twice a day at 7am and 4pm 180tabs F63.81 Unknown 12/17 F72 Linzess 145mcg Capsules 1 cap by mouth every morning at 6am Nani Morales 10/01/2018 Levothyroxine Sodium 112mcg Tablet s 1 tab by mouth every morning at 6am 30tabs Nani Morales Tramadol HCL ER 300mg Tablets ER 2 4HR 1 tab by mouth every morning at 6am 30tabs Unknown 01/30/2013 Folic Acid 1mg Tablets 1 tab by mouth every morning at 6am 30tabs Nani Morales 07/29/2012 Montelukast Sodium 10mg Tablets 1 tab by mouth every night at 8pm Nani Morales 013 Topiramate 200mg Tablets 1 tab by mouth twice a day at 6am and 8pm 180tabs F72 Mauricio Garber MD F63.81 Duloxetine HCL 60mg Caps DR Part 1 cap by mouth every evening at 7pm MDD 1 30caps F72 Mauricio rahman MD F63.81 Immunizations Description No Information Available Vital Signs Date Vital Result Comment 01/12/2021 10:08am BP Systolic 98 mmHg BP Diastolic 62 mmHg Heart Rate 100 /min Respiratory Rate 16 /min O2 % BldC Oximetry 97 % Weight 144.12 lb Weight 65.375 kg Height 64 inches 5'4" BMI (Body Mass Index) 24.7 kg/m2 BSA (Body Surface Area) 1.70 m2 09/27/2017 2:36pm BP Systolic Sitting 40990 mmHg Heart Rate 92 /min Body Temperature 97.8 F Oral Respiratory Rate 18 /min O2 % BldC Oximetry 97 % Weight 165.38 lb Weight 75.014 kg Height 64 inches 5'4" BMI (Body Mass Index) 28.4 kg/m2 BSA (Body Surface Area) 1.80 m2 Results Test Acquired Date Facility Test Result H/L Range Note Xray 01/12/2021 [facility] nter ( )- - Mammo Screening Bilateral with CAD <pending> Procedures Date Code Description Status 01/12/2021 30847 Preventive Visit New 40-64 Yrs C ompleted 08/30/2020 19964 Debridement Nails Any Method 6 O r More Completed 08/30/2020 48749 Pare Hyperkeratotic Lesion, 2-4 Completed Medical Devices Description No Information Available Encounters Type Date Location Provider Dx Diagnosis Office Visit 01/12/2021 9:30a [facility] Cris Nolasco NP Z01.419 Encntr for field marketing lead exam (general) (routine) w/o abn findings Assessments Date Code Description Provider 01/12/2021 Z01.419 Encounter for gyneco logical examination (general) (routine) without abnormal findings Cris Nolasco NP 08/30/2020 I70.203 Unspecified atherosc lerosis of [place] arteries of extremities, bilateral legs Marilee Wolfe 08/30/2020 L84 Corns and callosities Marilee Zuleta 08/30/2020 M20.40 Other hammer toe(s) (acquired), unspecified foot Marilee Wolfe 08/30/2020 B35.1 Tinea unguium Marilee Wolfe Plan of Treatment Future Appointment(s):* 01/26/2021 11:00 am - Marilee Wolfe at [facility] Podiatry * 01/19/2021 12:20 pm - Rogelio Contreras PA-C at [facility] 01/12/2021 - Cris Nolasco NP* Z01.419 Encounter for gynecological examination (general) (routine) without abnormal findings* Follow up:* 1 year. * Recommendations:* discussed with aide no pelvic done , pt not receptive to this, no hx activity , no longer menstrating * Instructions:* Call for problems or questions Functional Status Functional Condition Comment Date Status Rolling walker is used to ambulate Active Mental Status Description No Information Available Referrals Description No Information Available
--- OUTSIDE RECORDS SUMMARY | 2021-02-12 21:13 | CCD | Continuity of Care Document ---
Author Author Leah VELOZ Organization Unknown Address [address] [place], [place] [address] Phone [phone] Care Team Providers Care Healthcare Prof Name Role Phone AUTM Unavailable Nani Moarles Unavailable Problems Active Problems Provider Date Taking [...] 1.70 m2 09/27/2017 2:36pm BP Systolic Sitting 92643 mmHg Heart Rate 92 /min Body Temperature 97.8 F Oral Respiratory Rate 18 /min O2 % BldC Oximetry 97 % Weight 165.38 lb Weight 75.014 kg Height 64 inches 5'4" BMI (Body Mass Index) 28.4 kg/m2 BSA (Body Surface Area) 1.80 m2 Results Test Acquired Date Facility Test Result H/L Range Note Xray 01/12/2021 [facility] nter ( )- - Mammo Screening Bilateral with CAD <pending> Procedures Date Code Description Status 01/12/2021 98783 Preventive Visit New 40-64 Yrs C ompleted 08/30/2020 80162 Debridement Nails Any Method 6 O r More Completed 08/30/2020 25142 Pare Hyperkeratotic Lesion, 2-4 Completed Medical Devices Description No Information Available Encounters Type Date Location Provider Dx Diagnosis Office Visit 01/12/2021 9:30a [facility] Cris Nolasco NP Z01.419 Encntr for captain assistant exam (general) (routine) w/o abn findings Assessments Date Code Description Provider 01/12/2021 Z01.419 Encounter for gyneco logical examination (general) (routine) without abnormal findings Cris Nolasco NP 08/30/2020 I70.203 Unspecified atherosc lerosis of [place] arteries of extremities, bilateral legs Marilee Wolfe 08/30/2020 L84 Corns and callosities Marilee Zuleta 08/30/2020 M20.40 Other hammer toe(s) (acquired), unspecified foot Marilee Wolfe 08/30/2020 B35.1 Tinea unguium Marilee Wolfe Plan of Treatment Future Appointment(s):* 01/26/2021 11:00 am - Marilee Wolfe at [facility] Podiatry * 01/19/2021 12:20 pm - Rogelio Contreras PA-C at [facility] 01/12/2021 - Cris Nolasco NP* Z01.419 Encounter [...]
--- OUTSIDE RECORDS SUMMARY | 2021-02-12 21:13 | CCD ---
Continuity of Care Document (CCD) Created on: 01/12/2021 Leah Bryant External Reference #: [id number] : [id number] Sex: Female Author Author Leah VELOZ Organization Unknown Address [address] [place], [place] [address] Phone [phone] Care Team Providers Care Styrene Dehydration Reactor Operator Name Role Phone AUTM Unavailable Nani Morales Unavailable Problems Active Problems Provider Date Taking medication Rogelio Contreras PA-C Onset: 04/05/2020 Callosity under metatarsal head Mairlee Wolfe Onset : 09/03/2019 Rheumatoid arthritis of [...] 1.70 m2 09/27/2017 2:36pm BP Systolic Sitting 66773 mmHg Heart Rate 92 /min Body Temperature 97.8 F Oral Respiratory Rate 18 /min O2 % BldC Oximetry 97 % Weight 165.38 lb Weight 75.014 kg Height 64 inches 5'4" BMI (Body Mass Index) 28.4 kg/m2 BSA (Body Surface Area) 1.80 m2 Results Test Acquired Date Facility Test Result H/L Range Note Xray 01/12/2021 [facility] nter ( )- - Mammo Screening Bilateral with CAD <pending> Procedures Date Code Description Status 01/12/2021 59810 Preventive Visit New 40-64 Yrs C ompleted 08/30/2020 24172 Debridement Nails Any Method 6 O r More Completed 08/30/2020 89015 Pare Hyperkeratotic Lesion, 2-4 Completed Medical Devices Description No Information Available Encounters Type Date Location Provider Dx Diagnosis Office Visit 01/12/2021 9:30a [facility] Cris Nolasco NP Z01.419 Encntr for beader exam (general) (routine) w/o abn findings Assessments Date Code Description Provider 01/12/2021 Z01.419 Encounter for gyneco logical examination (general) (routine) without abnormal findings Cris Nolasco NP 08/30/2020 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
--- OUTSIDE RECORDS SUMMARY | 2021-02-12 21:13 | CCD | Continuity of Care Document ---
Author Author Leah VELOZ Organization Unknown Address [address] [place], [place] [address] Phone [phone] Care Team Providers Care Drug Counselor Name Role Phone AUTM Unavailable Nani Morales [...] 1.70 m2 09/27/2017 2:36pm BP Systolic Sitting 52560 mmHg Heart Rate 92 /min Body Temperature 97.8 F Oral Respiratory Rate 18 /min O2 % BldC Oximetry 97 % Weight 165.38 lb Weight 75.014 kg Height 64 inches 5'4" BMI (Body Mass Index) 28.4 kg/m2 BSA (Body Surface Area) 1.80 m2 Results Test Acquired Date Facility Test Result H/L Range Note Xray 01/12/2021 [facility] nter ( )- - Mammo Screening Bilateral with CAD <pending> Procedures Date Code Description Status 01/12/2021 82179 Preventive Visit New 40-64 Yrs C ompleted 08/30/2020 32777 Debridement Nails Any Method 6 O r More Completed 08/30/2020 84362 Pare Hyperkeratotic Lesion, 2-4 Completed Medical Devices Description No Information Available Encounters Type Date Location Provider Dx Diagnosis Office Visit 01/12/2021 9:30a [facility] Cris Nolasco NP Z01.419 Encntr for bun icer exam (general) (routine) w/o abn findings Assessments Date Code Description Provider 01/12/2021 Z01.419 Encounter for gyneco logical examination (general) (routine) without abnormal findings Cris Nolasco NP 08/30/2020 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
--- OUTSIDE RECORDS SUMMARY | 2021-02-12 21:13 | CCD | Continuity of Care Document ---
Author Author Leah CONTRERAS PA-C Organization Unknown Address [facility] [address] [place] [address] Phone [phone] Care Team Providers Care Analyst Competitive Intelligence Name Role Phone AUTM Unavailable Nani Morales Unavailable Problems Active Problems Provider Date Taking medication Rogelio Contreras PA-C Onset: 04/05/2020 Callosity under metatarsal head Lalitha Villalta DPM-pc Onset : 09/03/2019 Rheumatoid arthritis of multiple [...] twice a day at 7am and 4pm 540tabs F63.81 Mauricio Garber MD 12/17/2020 F72 Linzess 145mcg Capsules 1 cap by [...] cap by mouth every evening at 7pm mdd 1 90caps F72 Mauricio rahman MD F63.81 Immunizations Description [...] 1.70 m2 09/27/2017 2:36pm BP Systolic Sitting 30800 mmHg Heart Rate 92 /min Body Temperature 97.8 F Oral Respiratory Rate 18 /min O2 % BldC Oximetry 97 % Weight 165.38 lb Weight 75.014 kg Height 64 inches 5'4" BMI (Body Mass Index) 28.4 kg/m2 BSA (Body Surface Area) 1.80 m2 Results Test Acquired Date Facility Test Result H/L Range Note Xray 01/12/2021 [facility] nter ( )- - Mammo Screening Bilateral with CAD <pending> Procedures Date Code Description Status 01/19/2021 29441 Office/Outpatient Established Mo d MDM 30-39 Min Completed 01/12/2021 15746 Preventive Visit New 40-64 Yrs C ompleted 08/30/2020 53182 Debridement Nails Any Method 6 O r More Completed 08/30/2020 63231 Pare Hyperkeratotic Lesion, 2-4 Completed Medical Devices Description No Information Available Encounters Type Date Location Provider Dx Diagnosis Office Visit 01/19/2021 12:[facility] Rogelio Contreras PA-C F63.81 Intermittent explosive disorder F72 Severe intellectual disabili ties Z79.899 Other exterminator helper termite (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) dr [facility] therapy Assessments Date Code Description Provider 01/19/2021 F63.81 Intermittent explosive disorder Rogelio Contreras PA-C 01/19/2021 F72 Severe intellectual disabilities Rogelio Contreras PA-C 01/19/2021 Z79.899 Other exterminator helper termite (current) drug t herapy Rogelio Contreras PA-C 01/12/2021 Z01.419 Encounter for gyneco logical examination (general) (routine) without abnormal findings Cris Nolasco, THOMAS 08/30/2020 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
--- OUTSIDE RECORDS SUMMARY | 2021-02-12 21:14 | CCD ---
Author Author [facility] Organization [facility] Address Unknown Phone Unavailable Support Name Relationship Address Phone MUNIR GAIT[place] [address] SHERLYN WONG Next Of Kin [address] [place] [address] JUSTINO GAITAN Next Of Kin [address] [place] [address] UNKNOWN, [facility] Next Of Kin Unknown Unavailable JEREMÍAS ANAYA Next Of Kin [address] [place] [id number] JR Next Of Kin Unknown Pili Hines Next Of Kin Unknown Unavailable FRANKLIN TRUJILLO Next Of Kin [address] [place] [address] FRANKLIN HORAN Next Of Kin [address] [place] [address] BULMARO, STAFF) DONNY([facility] Next Of Kin [address] [place] [address] DISABLED Next Of Kin Unknown DONNY BANKS Next Of Kin [address] [place] [id number] MARGARITA BRYANT Next Of Kin [address] [place] [address] Clay LINN Next Of Kin [id number] [place] [id number] OLIVIER LINN Next Of Kin [id number] [address] JUSTINO GAITAN ECON [address] [place] [address] Unavailable Donny Banks ECON [address] [place] [address] Unavailable Pili Hines ECON Unknown Unavailable Care Team Providers Care Ginger Farmer Name Role Phone Nikhil Juárez MD Unavailable Unavailable Nikhil Juárez MD Unavailable Unavailable Nikhil Juárez MD Unavailable Unavailable Nikhil Juárez MD Unavailable Unavailable Nikhil Juárez MD Unavailable Unavailable Nikhil Juárez MD Unavailable Unavailable Nikhil Juárez MD Unavailable Unavailable Nikhil Juárez MD Unavailable Unavailable Nikhil Juárez MD Unavailable Unavailable Nikhil Juárez MD Unavailable Unavailable Nikhil Juárez MD Unavailable Unavailable Nikhil Juárez MD Unavailable Unavailable Nikhil Juárez MD Unavailable Unavailable Nikhil Juárez MD Unavailable Unavailable Nikhil Juárez MD Unavailable Unavailable Nikhil Juárez MD Unavailable Unavailable Nikhil Juárez MD Unavailable Unavailable Nikhil Juárez MD Unavailable Unavailable Nikhil Juárez MD Unavailable Unavailable Nikhil Juárez MD Unavailable Unavailable Nikhil Juárez MD Unavailable Unavailable Nikhil Juárez MD Unavailable Unavailable Nikhil Juárez MD Unavailable Unavailable Nikhil Juárez MD Unavailable Unavailable Nikhil Juárez MD Unavailable Unavailable Nikhil Juárez MD Unavailable Unavailable Nikhil Juárez MD Unavailable Unavailable Nikhil Juárez MD Unavailable Unavailable Nikhil Juárez MD Unavailable Unavailable Nikhil Juárez MD Unavailable Unavailable Nikhil Juárez MD Unavailable Unavailable Nikhil Juárez MD Unavailable Unavailable Nikhil Juárez MD Unavailable Unavailable Nikhil Juárez MD Unavailable Unavailable Nikhil Juárez MD Unavailable Unavailable Nikhil Juárez MD Unavailable Unavailable Nikhil Juárez MD Unavailable Unavailable Nikhil Juárez MD Unavailable Unavailable Nikhil Juárez MD Unavailable Unavailable Nikhil Juárez MD Unavailable Unavailable Nikhil Juárez MD Unavailable Unavailable Nikhil Juárez MD Unavailable Unavailable Nikhil Juárez MD Unavailable Unavailable Nikhil Juárez MD Unavailable Unavailable Nikhil Juárez MD Unavailable Unavailable Nikhil Juárez MD Unavailable Unavailable Nikhil Juárez MD Unavailable Unavailable Nikhil Juárez MD Unavailable Unavailable Nikhil Juárez MD Unavailable Unavailable Nikhil Juárez MD Unavailable Unavailable Nikhil Juárez MD Unavailable Unavailable Nikhil Juárez MD Unavailable Unavailable Nikhil Juárez MD Unavailable Unavailable Nikhil Juárez MD Unavailable Unavailable Nikhil Juárez MD Unavailable Unavailable Nikhil Juárez MD Unavailable Unavailable Nikhil Juárez MD Unavailable Unavailable Nikhil Juárez MD Unavailable Unavailable Nikhil Juárez MD Unavailable Unavailable Nikhil Juárez MD Unavailable Unavailable Nikhil Juárez MD Unavailable Unavailable Nikhil Juárez MD Unavailable Unavailable Nikhil uJárez MD Unavailable Unavailable Nikhil Juárez MD Unavailable Unavailable Nikhil Juárez MD Unavailable Unavailable Nikhil Juárez MD Unavailable Unavailable Nikhil Juárez MD Unavailable Unavailable Nikhil Juárez MD Unavailable Unavailable Nikhil Juárez MD Unavailable Unavailable Nikhil Juárez MD Unavailable Unavailable Nikhil Juárez MD Unavailable Unavailable Nikhil Juárez MD Unavailable Unavailable Nikhil Juárez MD Unavailable Unavailable Nikhil Juárez MD Unavailable Unavailable Nikhil Juárez MD Unavailable Unavailable Nikhil Juárez MD Unavailable Unavailable Nikhil Juárez MD Unavailable Unavailable Nikhil Juárez MD Unavailable Unavailable Nikhil Juárez MD Unavailable Unavailable Nikhil Juárez MD Unavailable Unavailable Nikhil Juárez MD Unavailable Unavailable Nikhil Juárez MD Unavailable Unavailable Nikhil Juárez MD Unavailable Unavailable Nikhil Juárez MD Unavailable Unavailable Nikhil Juárez MD Unavailable Unavailable Nikhil Juárez MD Unavailable Unavailable Nikhil Juárez MD Unavailable Unavailable Nikhil Juárez MD Unavailable Unavailable Nikhil Juárez MD Unavailable Unavailable Nikhil Juárez MD Unavailable Unavailable Nikhil Juárez MD Unavailable Unavailable Nikhil Juárez MD Unavailable Unavailable Nikhil Juárez MD Unavailable Unavailable Fish, Alivia Rutledge [facility], PA-C Unavailable Unavailabl e Fish, Alivia Nunezen [facility], PA-C Unavailable Unavailabl e Fish, Alivia Maty [facility], PA-C Unavailable Unavailabl e Fish, Alivia Maty [facility], PA-C Unavailable Unavailabl e Fish, Alivia Maty [facility], PA-C Unavailable Unavailabl e Fish, Alivia Maty [facility], PA-C Unavailable Unavailabl e Fish, Alivia Maty [facility], PA-C Unavailable Unavailabl e Fish, Alivia Maty [facility], PA-C Unavailable Unavailabl e Fish, Alivia Maty [facility], PA-C Unavailable Unavailabl e Fish, Alivia Maty [facility], PA-C Unavailable Unavailabl e Fish, Alivia Maty [facility], PA-C Unavailable Unavailabl e Fish, Alivia Maty [facility], PA-C Unavailable Unavailabl e Fish, Alivia Maty [facility], PA-C Unavailable Unavailabl e Fish, Alivia Maty [facility], PA-C Unavailable Unavailabl e Fish, Alivia Maty [facility], PA-C Unavailable Unavailabl e Fish, Alivia Maty [facility], PA-C Unavailable Unavailabl e Fish, Alivia Maty [facility], PA-C Unavailable Unavailabl e Fish, Alivia Maty [facility], PA-C Unavailable Unavailabl e Fish, Alivia Maty [facility], PA-C Unavailable Unavailabl e Fish, Alivia Maty [facility], PA-C Unavailable Unavailabl e Fish, Alivia Maty [facility], PA-C Unavailable Unavailabl e Fish, [facility], PA-C Unavailable Unavailabl e Fish, [facility], PA-C Unavailable Unavailabl e Fish, [facility], PA-C Unavailable Unavailabl e Fish, [facility], PA-C Unavailable Unavailabl e Fish, [facility], PA-C Unavailable Unavailabl e Fish, [facility], PA-C Unavailable Unavailabl e Fish, [facility], PA-C Unavailable Unavailabl e Fish, [facility], PA-C Unavailable Unavailabl e Fish, [facility], PA-C Unavailable Unavailabl e Fish, [facility], PA-C Unavailable Unavailabl e Fish, [facility], PA-C Unavailable Unavailabl e Fish, [facility], PA-C Unavailable Unavailabl e Fish, [facility], PA-C Unavailable Unavailabl e Fish, [facility], PA-C Unavailable Unavailabl e Jose Luis, Vickie Brink MD Unavailable Unavailable Jose Luis, Vickie Brink MD Unavailable Unavailable Jose Luis, Vickie Brink MD Unavailable Unavailable Jose Luis, Vickie Brink MD Unavailable Unavailable Jose Luis, Vickie Brink MD Unavailable Unavailable Jose Luis, Vickie Brink MD Unavailable Unavailable Jose Luis, Vickie Brink MD Unavailable Unavailable Jose Luis, Vickie Brink MD Unavailable Unavailable Jose Luis, Vickie Brink MD Unavailable Unavailable Jose Luis, Vickie Brink MD Unavailable Unavailable Jose Luis, Vickie Brink MD Unavailable Unavailable Jose Luis, Vickie Brink MD Unavailable Unavailable Jose Luis, Vickie Brink MD Unavailable Unavailable Jose Luis, Vickie Brink MD Unavailable Unavailable Jose Luis, Vickie Brink MD Unavailable Unavailable Jose Luis, Vickie Brink MD Unavailable Unavailable Jose Luis, Vickie Brink MD Unavailable Unavailable Jose Luis, Vickie Brink MD Unavailable Unavailable Jose Luis, Vickie Brink MD Unavailable Unavailable Jose Luis, Vickie Brink MD Unavailable Unavailable Jose Luis, Vickie Brink MD Unavailable Unavailable Jose Luis, Vickie Brink MD Unavailable Unavailable Jose Luis, Vickie Brink MD Unavailable Unavailable Jose Luis, Vickie Brink MD Unavailable Unavailable Jose Luis, Vickie Brink MD Unavailable Unavailable Jose Luis, Vickie Brink MD Unavailable Unavailable Jose Luis, Vickie Brink MD Unavailable Unavailable Jose Luis, Vickie Brink MD Unavailable Unavailable Jose Luis, Vickie Brink MD Unavailable Unavailable Jose Luis, Vickie Brink MD Unavailable Unavailable Jose Luis, Vickie Brink MD Unavailable Unavailable Jose Luis, Vickie Brink MD Unavailable Unavailable Jose Luis, Vickie Brink MD Unavailable Unavailable Jose Luis, Vickie Brink MD Unavailable Unavailable Jose Luis, Vickie Brink MD Unavailable Unavailable Jose Luis, Vickie Brink MD Unavailable Unavailable Jose Luis, Vickie Brink MD Unavailable Unavailable Jose Luis, Vickie Brink MD Unavailable Unavailable Jose Luis, Vickei Brink MD Unavailable Unavailable Jose Luis, Vickie Brink MD Unavailable Unavailable Jose Luis, Vickie Brink MD Unavailable Unavailable Jose Luis, Vickie Brink MD Unavailable Unavailable Jose Luis, Vickie Brink MD Unavailable Unavailable Jose Luis, Vickie Brink MD Unavailable Unavailable Jose Luis, Vickie Birnk MD Unavailable Unavailable Jose Luis, Vickie Brink MD Unavailable Unavailable Jose Luis, Vickie Brink MD Unavailable Unavailable Jose Luis, Vickie Brink MD Unavailable Unavailable Jose Luis, Vickie Brink MD Unavailable Unavailable Jose Luis, Vickie Brink MD Unavailable Unavailable Jose Luis, Vickei Brink MD Unavailable Unavailable Jose Luis, Vickie Brink MD Unavailable Unavailable Jose Luis, Vickie Brink MD Unavailable Unavailable Jose Luis, Vickie Brink MD Unavailable Unavailable Jose Luis, Vickie Brink MD Unavailable Unavailable Jose Luis, Vickie Brink MD Unavailable Unavailable Jose Luis, Vickie Brink MD Unavailable Unavailable Jose Luis, Vickie Brink MD Unavailable Unavailable Jose Luis, Vickie Brink MD Unavailable Unavailable Jose Luis, Vickie Brink MD Unavailable Unavailable Jose Luis, Vickie Brink MD Unavailable Unavailable Jose Luis, Vickie Brink MD Unavailable Unavailable Jose Luis, Vickie Brink MD Unavailable Unavailable Jose Luis, Vickie Brink MD Unavailable Unavailable Jose Luis, Vickie Brink MD Unavailable Unavailable Jose Luis, Vickie Brink MD Unavailable Unavailable Jose Luis, Vickie Brink MD Unavailable Unavailable Jose Luis, Vickie Brink MD Unavailable Unavailable Jose Luis, Vickie Brink MD Unavailable Unavailable Jose Luis, Vickie Brink MD Unavailable Unavailable Jose Luis, Vickie Brink MD Unavailable Unavailable Jose Luis, Vickie Brink MD Unavailable Unavailable Jose Luis, Vickie Brink MD Unavailable Unavailable Jose Luis, Vickie Brink MD Unavailable Unavailable Jose Luis, Vickie Brink MD Unavailable Unavailable Jose Luis, Vickie Brink MD Unavailable Unavailable Jose Luis, Vickie Brink MD Unavailable Unavailable Ad Lawrence MD Unavailable Unavailable Ad Lawrence MD Unavailable Unavailable Ad Lawrence MD Unavailable Unavailable Ad Lawrence MD Unavailable Unavailable Ad Lawrence MD Unavailable Unavailable Ad Lawrence MD Unavailable Unavailable PCP, PT Does Not have, OUT OF AREA Unavailable Unav ailable MANSFIELD, J ROGELIO PA Unavailable Unavailable MANSFIELD, J ROGELIO PA Unavailable Unavailable MANSFIELD, J ROGELIO PA Unavailable Unavailable MANSFIELD, J ROGELIO PA Unavailable Unavailable MANSFIELD, J ROGELIO PA Unavailable Unavailable MANSFIELD, J ROGELIO PA Unavailable Unavailable MANSFIELD, J ROGELIO PA Unavailable Unavailable MANSFIELD, J ROGELIO PA Unavailable Unavailable MANSFIELD, J ROGELIO PA Unavailable Unavailable MANSFIELD, J ROGELIO PA Unavailable Unavailable MANSFIELD, J ROGELIO PA Unavailable Unavailable MANSFIELD, J ROGELIO PA Unavailable Unavailable MANSFIELD, J ROGELIO PA Unavailable Unavailable MANSFIELD, J ROGELIO PA Unavailable Unavailable MANSFIELD, J ROGELIO PA Unavailable Unavailable MANSFIELD, J ROGELIO PA Unavailable Unavailable MANSFIELD, J ROGELIO PA Unavailable Unavailable MANSFIELD, J ROGELIO PA Unavailable Unavailable MANSFIELD, J ROGELIO PA Unavailable Unavailable MANSFIELD, J ROGELIO PA Unavailable Unavailable MANSFIELD, J ROGELIO PA Unavailable Unavailable MANSFIELD, J ROGELIO PA Unavailable Unavailable MANSFIELD, J ROGELIO PA Unavailable Unavailable MANSFIELD, J ROGELIO PA Unavailable Unavailable MANSFIELD, J ROGELIO PA Unavailable Unavailable MANSFIELD, J ROGELIO PA Unavailable Unavailable MANSFIELD, J ROGELIO PA Unavailable Unavailable Syed, Mariae Cinthya LUMBER STACKER DRIVER Unavailable Unavailable Syed, Mariae Ackerly LUMBER STACKER DRIVER Unavailable Unavailable Syed, Mariae Cinthya LUMBER STACKER DRIVER Unavailable Unavailable [place], Mariae Ackerly LUMBER STACKER DRIVER Unavailable Unavailable [place], Mariae Ackerly LUMBER STACKER DRIVER Unavailable Unavailable Syed, Mariae Cinthya LUMBER STACKER DRIVER Unavailable Unavailable Syed, Mariae Ackerly LUMBER STACKER DRIVER Unavailable Unavailable [place], Mariae Cinthya LUMBER STACKER DRIVER Unavailable Unavailable Syed, Mariae Ackerly LUMBER STACKER DRIVER Unavailable Unavailable Syed, Mariae Cinthya LUMBER STACKER DRIVER Unavailable Unavailable Syed, Mariae Ackerly LUMBER STACKER DRIVER Unavailable Unavailable [place], Mariae Ackerly LUMBER STACKER DRIVER Unavailable Unavailable [place], Mariae Ackerly LUMBER STACKER DRIVER Unavailable Unavailable Syed, Mariae Ackerly LUMBER STACKER DRIVER Unavailable Unavailable [place], Mariae Ackerly LUMBER STACKER DRIVER Unavailable Unavailable [place], Mariae Ackerly LUMBER STACKER DRIVER Unavailable Unavailable Syed, Mariae Cinthya LUMBER STACKER DRIVER Unavailable Unavailable ITALIA ROJAS MD Unavailable Unavailable ITALIA ROJAS MD Unavailable Unavailable ITALIA ROJAS MD Unavailable Unavailable ITALIA ROJAS MD Unavailable Unavailable ITALIA ROJAS MD Unavailable Unavailable ITALIA ROJAS MD Unavailable Unavailable ITALIA ROJAS MD Unavailable Unavailable MANSFIELD, J ROGELIO PA Unavailable Unavailable MANSFIELD, J ROGELIO PA Unavailable Unavailable MANSFIELD, J ROGELIO PA Unavailable Unavailable MANSFIELD, J ROGELIO PA Unavailable Unavailable MANSFIELD, J ROGELIO PA Unavailable Unavailable MANSFIELD, J ROGELIO PA Unavailable Unavailable MANSFIELD, J ROGELIO PA Unavailable Unavailable MANSFIELD, J ROGELIO PA Unavailable Unavailable MANSFIELD, J ROGELIO PA Unavailable Unavailable MANSFIELD, J ROGELIO PA Unavailable Unavailable MANSFIELD, J ROGELIO PA Unavailable Unavailable MANSFIELD, J ROGELIO PA Unavailable Unavailable MANSFIELD, J ROGELIO PA Unavailable Unavailable MANSFIELD, J ROGELIO PA Unavailable Unavailable MANSFIELD, J ROGELIO PA Unavailable Unavailable MANSFIELD, J ROGELIO PA Unavailable Unavailable MANSFIELD, J ROGELIO PA Unavailable Unavailable MANSFIELD, J ROGELIO PA Unavailable Unavailable MANSFIELD, J ROGELIO PA Unavailable Unavailable MANSFIELD, J ROGELIO PA Unavailable Unavailable MANSFIELD, J ROGELIO PA Unavailable Unavailable MANSFIELD, J ROGELIO PA Unavailable Unavailable MANSFIELD, J ROGELIO PA Unavailable Unavailable MANSFIELD, J ROGEILO PA Unavailable Unavailable MANSFIELD, J ROGELIO PA Unavailable Unavailable MANSFIELD, J ROGELIO PA Unavailable Unavailable MANSFIELD, J ROGELIO PA Unavailable Unavailable Yajaira Harp MD Unavailable Unavailable Yajaira Harp MD Unavailable Unavailable Yajaira Harp MD Unavailable Unavailable Yajaira Harp MD Unavailable Unavailable Yajaira Harp MD Unavailable Unavailable Yajaira Harp MD Unavailable Unavailable Yajaira Harp MD Unavailable Unavailable Yajaira Harp MD Unavailable Unavailable Yajaira Harp MD Unavailable Unavailable Yajaira Harp MD Unavailable Unavailable Yajaira Harp MD Unavailable Unavailable Yajaira Harp MD Unavailable Unavailable Yajaira Harp MD Unavailable Unavailable [place], Mariae Ackerly LUMBER STACKER DRIVER Unavailable Unavailable [place], Mariae Ackerly LUMBER STACKER DRIVER Unavailable Unavailable Syed, Mariae Ackerly LUMBER STACKER DRIVER Unavailable Unavailable Syed, Mariae Ackerly LUMBER STACKER DRIVER Unavailable Unavailable Syed, Mariae Ackerly LUMBER STACKER DRIVER Unavailable Unavailable [place], Mariae Cinthya LUMBER STACKER DRIVER Unavailable Unavailable [place], Mariae Ackerly LUMBER STACKER DRIVER Unavailable Unavailable [place], Mariae Ackerly LUMBER STACKER DRIVER Unavailable Unavailable [place], Mariae Ackerly LUMBER STACKER DRIVER Unavailable Unavailable [place], Mariae Cinthya LUMBER STACKER DRIVER Unavailable Unavailable [place], Loretoe Cinthya LUMBER STACKER DRIVER Unavailable Unavailable [place], Mariae Cinthya LUMBER STACKER DRIVER Unavailable Unavailable [place], Mariae Ackerly LUMBER STACKER DRIVER Unavailable Unavailable [place], Loretoe Cinthya LUMBER STACKER DRIVER Unavailable Unavailable Syed, Loretoe Ackerly LUMBER STACKER DRIVER Unavailable Unavailable Syed, Loretoe Ackerly LUMBER STACKER DRIVER Unavailable Unavailable Syed, Loretoe Ackerly LUMBER STACKER DRIVER Unavailable Unavailable ITALIA ROJAS MD Unavailable Unavailable ITALIA ROJAS MD Unavailable Unavailable ITALIA ROJAS MD Unavailable Unavailable ITALIA ROJAS MD Unavailable Unavailable ITALIA ROJAS MD Unavailable Unavailable ITALIA ROJAS MD Unavailable Unavailable ITALIA ROJAS MD Unavailable Unavailable GEMMARadha PEARL MD Unavailable Unavailable GEMMARadha PEARL MD Unavailable Unavailable GEMMARadha PEARL MD Unavailable Unavailable GEMMARadha PEARL MD Unavailable Unavailable GEMMARadha PEARL MD Unavailable Unavailable GEMMARadha PEARL MD Unavailable Unavailable GEMMARadha PEARL MD Unavailable Unavailable GEMMARadha PEARL MD Unavailable Unavailable GEMMARadha PEARL MD Unavailable Unavailable GEMMARadha PEARL MD Unavailable Unavailable GEMMARadha PEARL MD Unavailable Unavailable GEMMARadha PEARL MD Unavailable Unavailable GEMMARadha PEARL MD Unavailable Unavailable GEMMARadha PEARL MD Unavailable Unavailable GEMMARadha PEARL MD Unavailable Unavailable GEMMARadha PEARL MD Unavailable Unavailable GEMMARadha PEARL MD Unavailable Unavailable GEMMARadha PEARL MD Unavailable Unavailable GEMMARadha PEARL MD Unavailable Unavailable GEMMA L MIHAELA MD Unavailable Unavailable MATTHEW, MAQBOOL JONY MD Unavailable Unavailable MATTHEW, MAQBOOL JONY MD Unavailable Unavailable MATTHEW, MAQBOOL JONY MD Unavailable Unavailable MATTHEW, MAQBOOL JONY MD Unavailable Unavailable MATTHEW, MAQBOOL JONY MD Unavailable Unavailable MATTHEW, MAQBOOL JONY MD Unavailable Unavailable MATTHEW, MAQBOOL JONY MD Unavailable Unavailable MATTHEW, MAQBOOL JONY MD Unavailable Unavailable MATTHEW, MAQBOOL JONY MD Unavailable Unavailable MATTHEW, MAQBOOL JONY MD Unavailable Unavailable MATTHEW, MAQBOOL JONY MD Unavailable Unavailable MATTHEW, MAQBOOL JONY MD Unavailable Unavailable MATTHEW, MAQBOOL JONY MD Unavailable Unavailable MATTHEW, MAQBOOL JONY MD Unavailable Unavailable MATTHEW, MAQBOOL JONY MD Unavailable Unavailable MATTHEW, MAQBOOL JONY MD Unavailable Unavailable MATTHEW, MAQBOOL JONY MD Unavailable Unavailable MATTHEW, MAQBOOL JONY MD Unavailable Unavailable MATTHEW, MAQBOOL JONY MD Unavailable Unavailable MATTHEW, MAQBOOL JONY MD Unavailable Unavailable MATTHEW, MAQBOOL JONY MD Unavailable Unavailable MATTHEW, MAQBOOL JONY MD Unavailable Unavailable MATTHEW, MAQBOOL JONY MD Unavailable Unavailable MATTHEW, MAQBOOL JONY MD Unavailable Unavailable MATTHEW, MAQBOOL JONY MD Unavailable Unavailable MATTHEW, MAQBOOL JONY MD Unavailable Unavailable MATTHEW, MAQBOOL JONY MD Unavailable Unavailable MATTHEW, MAQBOOL JONY MD Unavailable Unavailable MATTHEW, MAQBOOL JONY MD Unavailable Unavailable MATTHEW, MAQBOOL JONY MD Unavailable Unavailable MATTHEW, MAQBOOL JONY MD Unavailable Unavailable MATTHEW, MAQBOOL JONY MD Unavailable Unavailable MATTHEW, MAQBOOL JONY MD Unavailable Unavailable MATTHEW, MAQBOOL JONY MD Unavailable Unavailable MATTHEW, MAQBOOL JONY MD Unavailable Unavailable MATTHEW, MAQBOOL JONY MD Unavailable Unavailable MATTHEW, MAQBOOL JONY MD Unavailable Unavailable MATTHEW, MAQBOOL JONY MD Unavailable Unavailable MATTHEW, MAQBOOL JNOY MD Unavailable Unavailable MATTHEW, MAQBOOL JONY MD Unavailable Unavailable MATTHEW, MAQBOOL JONY MD Unavailable Unavailable MATTHEW, MAQBOOL JONY MD Unavailable Unavailable MATTHEW, MAQBOOL JONY MD Unavailable Unavailable MATTHEW, MAQBOOL JONY MD Unavailable Unavailable MATTHEW, MAQBOOL JONY MD Unavailable Unavailable MATTHEW, MAQBOOL JONY MD Unavailable Unavailable MATTHEW, MAQBOOL JONY MD Unavailable Unavailable MATTHEW, MAQBOOL JONY MD Unavailable Unavailable MATTHEW, MAQBOOL JONY MD Unavailable Unavailable MATTHEW, MAQBOOL JONY MD Unavailable Unavailable MATTHEW, MAQBOOL JONY MD Unavailable Unavailable MATTHEW, MAQBOOL JONY MD Unavailable Unavailable MATTHEW, MAQBOOL JONY MD Unavailable Unavailable MATTHEW, MAQBOOL JONY MD Unavailable Unavailable MATTHEW, MAQBOOL JONY MD Unavailable Unavailable MATTHEW, MAQBOOL JONY MD Unavailable Unavailable MATTHEW, MAQBOOL JONY MD Unavailable Unavailable MATTHEW, MAQBOOL JONY MD Unavailable Unavailable MATTHEW, MAQBOOL JONY MD Unavailable Unavailable MATTHEW, MAQBOOL JONY MD Unavailable Unavailable MATTHEW, MAQBOOL JONY MD Unavailable Unavailable MATTHEW, MAQBOOL JONY MD Unavailable Unavailable MATTHEW, MAQBOOL JONY MD Unavailable Unavailable MATTHEW, MAQBOOL JONY MD Unavailable Unavailable MATTHEW, MAQBOOL JONY MD Unavailable Unavailable MATTHEW, MAQBOOL OJNY MD Unavailable Unavailable MATTHEW, MAQBOOL JONY MD Unavailable Unavailable MATTHEW, MAQBOOL JONY MD Unavailable Unavailable MATTHEW, MAQBOOL JNOY MD Unavailable Unavailable MATTHEW, MAQBOOL JONY MD Unavailable Unavailable MATTHEW, MAQBOOL JONY MD Unavailable Unavailable MATTHEW, MAQBOOL JONY MD Unavailable Unavailable MATTHEW, MAQBOOL JONY MD Unavailable Unavailable MATTHEW, MAQBOOL JONY MD Unavailable Unavailable MATTHEW, MAQBOOL JONY MD Unavailable Unavailable MATTHEW, MAQBOOL JONY MD Unavailable Unavailable MATTHEW, MAQBOOL JONY MD Unavailable Unavailable MATTHEW, MAQBOOL JONY MD Unavailable Unavailable DEMAR, J LIDIA DPM PC Unavailable Unavailable DEMAR, J LIDIA DPM PC Unavailable Unavailable DEMAR, J LIDIA DPM PC Unavailable Unavailable DEMAR, J LIDIA DPM PC Unavailable Unavailable DEMAR, J LIDIA DPM PC Unavailable Unavailable DEMAR, J LIDIA DPM PC Unavailable Unavailable DEMAR, J LIDIA DPM PC Unavailable Unavailable DEMAR, J LIDIA DPM PC Unavailable Unavailable DEMAR, J LIDIA DPM PC Unavailable Unavailable DEMAR, J LIDIA DPM PC Unavailable Unavailable DEMAR, J LIDIA [facility] Unavailable Unavailable DEMAR, J LIDIA [facility] Unavailable Unavailable DEMAR, J LIDIA [facility] Unavailable Unavailable DEMAR, J LIDIA [facility] Unavailable Unavailable DEMAR, J LIDIA [facility] Unavailable Unavailable DEMAR, J LIDIA [facility] Unavailable Unavailable DEMAR, J LIDIA [facility] Unavailable Unavailable DEMAR, J LIDAI D[facility] Unavailable Unavailable DEMAR, J LIDIA D[facility] Unavailable Unavailable DEMAR, J LIDIA [facility] Unavailable Unavailable DEMAR, J LIDIA [facility] Unavailable Unavailable DEMAR, J LIDIA [facility] Unavailable Unavailable DEMAR, J LIIDA DPM PC Unavailable Unavailable DEMAR, J LIDIA [facility] Unavailable Unavailable DEMAR, J LIDIA [facility] Unavailable Unavailable DEMAR, J LIDIA [facility] Unavailable Unavailable DEMAR, J LIDIA D[facility] Unavailable Unavailable Motley, Greenwood Enid Unavailable Unavailable Motley, Greenwood Enid Unavailable Unavailable Motley, Greenwood Enid Unavailable Unavailable Motley, Greenwood Enid Unavailable Unavailable Motley, Greenwood Enid Unavailable Unavailable Motley, Greenwood Enid Unavailable Unavailable Motley, Greenwood Enid Unavailable Unavailable Motley, [place] Unavailable Unavailable Motley, [place] Unavailable Unavailable Motley, [place] Unavailable Unavailable Motley, [place] Unavailable Unavailable Motley, [place] Unavailable Unavailable Motley, [place] Unavailable Unavailable HandyYajaira MD Unavailable Unavailable HandyYajaira MD Unavailable Unavailable HandyYajaira MD Unavailable Unavailable HandyYajaira MD Unavailable Unavailable HandyYajaira MD Unavailable Unavailable HandyYajaira MD Unavailable Unavailable HandyYajaira MD Unavailable Unavailable HandyYajaira MD Unavailable Unavailable HandyYajaira MD Unavailable Unavailable HandyYajaira MD Unavailable Unavailable HandyYajaira MD Unavailable Unavailable HandyYajaira MD Unavailable Unavailable HandyYajaira MD Unavailable Unavailable Hospital [facility], [facility] Unavailable Unavailable DANIEL AGOSTO MD Unavailable Unavailable DANIEL AGOSTO MD Unavailable Unavailable DANIEL AGOSTO MD Unavailable Unavailable DANIEL AGOSTO MD Unavailable Unavailable DANIEL AGOSTO MD Unavailable Unavailable DANIEL AGOSTO MD Unavailable Unavailable DANIEL AGOSTO MD Unavailable Unavailable DANIEL AGOSTO MD Unavailable Unavailable DANIEL AGOSTO MD Unavailable Unavailable DANIEL AGOSTO MD Unavailable Unavailable DANIEL AGOSTO MD Unavailable Unavailable DANIEL AGOSTO MD Unavailable Unavailable DANIEL AGOSTO MD Unavailable Unavailable UR STACI, COLLIN EMILY LO Unavailable Unavailable UR STACI, COLLIN EMILY MD Unavailable Unavailable UR STACI, COLLIN EMILY MD Unavailable Unavailable UR STACI, COLLIN EMILY MD Unavailable Unavailable UR STACI, COLLIN EMILY MD Unavailable Unavailable UR STACI, COLLIN EMILY MD Unavailable Unavailable UR STACI, COLLIN EMILY MD Unavailable Unavailable UR STACI, COLLIN EMILY MD Unavailable Unavailable UR STACI, COLLIN EMILY MD Unavailable Unavailable UR STACI, COLLIN EMILY MD Unavailable Unavailable UR STACI, COLLIN EMILY MD Unavailable Unavailable UR STACI, COLLIN EMILY MD Unavailable Unavailable UR STACI, COLLIN EMILY MD Unavailable Unavailable UR STACI, COLLIN EMILY MD Unavailable Unavailable UR STACI, COLLIN EMILY MD Unavailable Unavailable UR STACI, COLLIN EMILY MD Unavailable Unavailable UR STACI, COLLIN EMILY MD Unavailable Unavailable NAVARRO, BREE ABDIEL LUMBER STACKER DRIVER Unavailable Unavailable NAVARRO, BREE ABDIEL LUMBER STACKER DRIVER Unavailable Unavailable NAVARRO, BREE ABDIEL LUMBER STACKER DRIVER Unavailable Unavailable NAVARRO, BREE ABDIEL LUMBER STACKER DRIVER Unavailable Unavailable NAVARRO, BREE ABDIEL LUMBER STACKER DRIVER Unavailable Unavailable NAVARRO, BREE ABDIEL LUMBER STACKER DRIVER Unavailable Unavailable NAVARRO, BREE ABDIEL LUMBER STACKER DRIVER Unavailable Unavailable NAVARRO, BREE ABDIEL LUMBER STACKER DRIVER Unavailable Unavailable NAVARRO, BREE ABDIEL LUMBER STACKER DRIVER Unavailable Unavailable NAVARRO, BREE ABDIEL LUMBER STACKER DRIVER Unavailable Unavailable NAVARRO, BREE ABDIEL LUMBER STACKER DRIVER Unavailable Unavailable NAVARRO, BREE ABDIEL LUMBER STACKER DRIVER Unavailable Unavailable NAVARRO, BREE ABDIEL LUMBER STACKER DRIVER Unavailable Unavailable NAVARRO, BREE ABDIEL LUMBER STACKER DRIVER Unavailable Unavailable NAVARRO, BREE ABDIEL LUMBER STACKER DRIVER Unavailable Unavailable NAVARRO, BREE ABDIEL LUMBER STACKER DRIVER Unavailable Unavailable NAVARRO, BREE ABDIEL LUMBER STACKER DRIVER Unavailable Unavailable NAVARRO, BREE ABDIEL LUMBER STACKER DRIVER Unavailable Unavailable NAVARRO, BREE ABDIEL LUMBER STACKER DRIVER Unavailable Unavailable NAVARRO, BREE ABDIEL LUMBER STACKER DRIVER Unavailable Unavailable NAVARRO, BREE ABDIEL LUMBER STACKER DRIVER Unavailable Unavailable NAVARRO, BREE ABDIEL LUMBER STACKER DRIVER Unavailable Unavailable NAVARRO, BREE ABDIEL LUMBER STACKER DRIVER Unavailable Unavailable UR STACI, COLLIN EMILY MD Unavailable Unavailable UR STACI, COLLIN EMILY MD Unavailable Unavailable UR STACI, COLLIN EMILY MD Unavailable Unavailable UR STACI, COLLIN EMILY MD Unavailable Unavailable UR STACI, COLLIN EMILY MD Unavailable Unavailable UR STACI, COLLIN EMILY MD Unavailable Unavailable UR STACI, COLLIN EMILY MD Unavailable Unavailable UR STACI, COLLIN EMILY MD Unavailable Unavailable UR STACI, COLLIN EMILY MD Unavailable Unavailable UR STACI, COLLIN DIAZ MD Unavailable Unavailable UR STACI, COLLIN DIAZ MD Unavailable Unavailable UR STCAI, COLLIN DIAZ MD Unavailable Unavailable UR STACI, COLLIN DIAZ MD Unavailable Unavailable UR STACI, COLLIN DIAZ MD Unavailable Unavailable UR STACI, COLLIN DIAZ MD Unavailable Unavailable UR STACI, COLLIN DIAZ MD Unavailable Unavailable UR STACI, COLLIN DIAZ MD Unavailable Unavailable Jose Luis, Vickie Brink MD Unavailable Unavailable Jose Luis, Vickie Brink MD Unavailable Unavailable Jose Luis, Vickie Brink MD Unavailable Unavailable Jose Luis, Vickie Brink MD Unavailable Unavailable Jose Luis, Vickie Brink MD Unavailable Unavailable Jose Luis, Vickie Brink MD Unavailable Unavailable Jose Luis, Vickie Brink MD Unavailable Unavailable Jose Luis, Vickie Brink MD Unavailable Unavailable Jose Luis, Vickie Brink MD Unavailable Unavailable Jose Luis, Vickie Brink MD Unavailable Unavailable Jose Luis, Vickie Brink MD Unavailable Unavailable Jose Luis, Vickie Brink MD Unavailable Unavailable Jose Luis, Vickie Brink MD Unavailable Unavailable Jose Luis, Vickie Brink MD Unavailable Unavailable Jose Luis, Vickie Brink MD Unavailable Unavailable Jose Luis, Vickie Brink MD Unavailable Unavailable Jose Luis, Vickie Brink MD Unavailable Unavailable Jose Luis, Vickie Brink MD Unavailable Unavailable Jose Luis, Vickie Brink MD Unavailable Unavailable Jose Luis, Vickie Brink MD Unavailable Unavailable Jose Luis, Vickie Brink MD Unavailable Unavailable Jose Luis, Vickie Brink MD Unavailable Unavailable Jose Luis, Vickie Brink MD Unavailable Unavailable Jose Luis, Vickie Brink MD Unavailable Unavailable Jose Luis, Vickie Brink MD Unavailable Unavailable Jose Luis, Vickie Brink MD Unavailable Unavailable Jose Luis, Vickie Brink MD Unavailable Unavailable Jose Luis, Vickie Brink MD Unavailable Unavailable Jose Luis, Vickie Brink MD Unavailable Unavailable Jose Luis, Vickie Brink MD Unavailable Unavailable Jose Luis, Vickie Brink MD Unavailable Unavailable Jose Luis, Vickie Brink MD Unavailable Unavailable Jose Luis, Vickie Brink MD Unavailable Unavailable Jose Luis, Vickie Brink MD Unavailable Unavailable Jose Luis, Vickie Brink MD Unavailable Unavailable Jose Luis, Vickie Brink MD Unavailable Unavailable Jose Luis, Vickie Brink MD Unavailable Unavailable Jose Luis, Vickie Brink MD Unavailable Unavailable Jose Luis, Vickie Brink MD Unavailable Unavailable Jose Luis, Vickie Brink MD Unavailable Unavailable Jose Luis, C Cuba MD Unavailable Unavailable Jose Luis, C [place] MD Unavailable Unavailable Jose Luis, C Cuba MD Unavailable Unavailable Jose Luis, C [place] MD Unavailable Unavailable Jose Luis, C [place] MD Unavailable Unavailable Jose Luis, C [place] MD Unavailable Unavailable Jose Luis, C [place] MD Unavailable Unavailable Jose Luis, C Cuba MD Unavailable Unavailable Jose Luis, C Cuba MD Unavailable Unavailable Jose Luis, C Cuba MD Unavailable Unavailable Jose Luis, C Cuba MD Unavailable Unavailable Jose Luis, C Cuba MD Unavailable Unavailable Jose Luis, C Cuba MD Unavailable Unavailable Jose Luis, C Cuba MD Unavailable Unavailable Jose Luis, C Cuba MD Unavailable Unavailable Jose Luis, C Cuba MD Unavailable Unavailable Jose Luis, C Cuba MD Unavailable Unavailable Jose Luis, C Cuba MD Unavailable Unavailable Jose Luis, C Cuba MD Unavailable Unavailable Jose Luis, C Cuba MD Unavailable Unavailable Jose Luis, C Cuba MD Unavailable Unavailable Jose Luis, C Cuba MD Unavailable Unavailable Jose Luis, C Cuba MD Unavailable Unavailable Jose Luis, C Cuba MD Unavailable Unavailable Jose Luis, C Cuba MD Unavailable Unavailable Jose Luis, C Cuba MD Unavailable Unavailable Jose Luis, C Cuba MD Unavailable Unavailable Jose Luis, C Cuba MD Unavailable Unavailable Jose Luis, C Cuba MD Unavailable Unavailable Jose Luis, C Cuba MD Unavailable Unavailable Jose Luis, C Cuba MD Unavailable Unavailable Jose Luis, C Cuba MD Unavailable Unavailable Jose Luis, C Cuba MD Unavailable Unavailable Jose Luis, C Cuba MD Unavailable Unavailable Jose Luis, C Cuba MD Unavailable Unavailable Jose Luis, C Cuba MD Unavailable Unavailable Jose Luis, C Cuba MD Unavailable Unavailable Re-disclosure Warning The records that you are about to access may contain information from federally-assisted alcohol or drug abuse programs. If such information is present, then the following federally mandated warning applies: This information has been disclosed to you from records protected by federal confidentiality rules (42 CFR part 2). The federal rules prohibit you from making any further disclosure of this information unless further disclosure is expressly permitted by the written consent of the person to whom it pertains or as otherwise permitted by 42 CFR part 2. A general authorization for the release of medical or other information is NOT sufficient for this purpose. The Federal rules restrict any use of the information to criminally investigate or prosecute any alcohol or drug abuse patient.The records that you are about to access may contain highly sensitive health information, the redisclosure of which is protected by Article 27-F of the [place] [facility] Public Health law. If you continue you may have access to information: Regarding HIV / AIDS; Provided by facilities licensed or operated by the [facility] Office of Mental Health; or Provided by the [facility] Office for People With Developmental Disabilities. If such information is present, then the following [facility] mandated warning applies: This information has been disclosed to you from confidential records which are protected by state law. State law prohibits you from making any further disclosure of this information without the specific written consent of the person to whom it pertains, or as otherwise permitted by law. Any unauthorized further disclosure in violation of state law may result in a fine or custodial sentence or both. A general authorization for the release of medical or other information is NOT sufficient authorization for further disc losure. Allergies and Adverse Reactions Type Description Substance Reaction Status Data Source(s ) No Known Drug Allergies No Known Drug Allergies [facility] Allergy to substance Allergy to substance Allergy to substance [place] ([facility]) Allergy to substance Allergy to substance Allergy to substance [place] ([facility]) Allergy to substance Allergy to substance Allergy to substance [place] ([facility]) Family History Family Member Name Family Member Gender Family Member Status Date o f Status Description Data Source(s) Unknown Unknown Problem [facility] ([facility]) Encounters Encounter Providers Location Date Indications Data Source(s ) OFFICE OUTPATIENT VISIT 15 MINUTES Attender: Maty SILVA PA-C Physical Therapy 01/20/2021 09:30:00 AM EDT [facility] ([facility]) Outpatient Attender: ROGELIO BURCH Family [facility] 01/19 12:20:00 PM EDT [facility] ([facility] Outpatient Attender: ROGELIO MANSFIELD PAConsultant: Cuba walker MD 01/19/2021 12:19:00 PM EDT - 01/19/2021 12:19:00 PM EDT [facility] Outpatient Attender: ABDIEL NAVARRO NPConsultant: Cuba toribio MD 01/12/2021 10:02:00 AM EDT - 01/12/2021 10:02:00 AM EDT [facility] Outpatient Attender: ABDIEL NAVARRO LUMBER STACKER DRIVER Family Practice 01/12/2021 09 :30:00 AM EDT [facility] ([facility]) Outpatient Attender: Cinthya Lynch ANIKET eferrer: Cinthya Lynch NPConsultant: Cuba Amaya MD 12/29/2020 04:39:00 PM EDT - 12/29/2020 04:49:0 0 PM EDT [facility] Emergency Attender: MIHAELA MENENDEZ MDConsultant: Cuba deluna MD 12/15/2020 11:36:00 PM EDT - 12/16/2020 05:44:00 AM EDT [facility] Patient discharged. Outpatient Attender: JAILYN AGOSTO MD [facility] Internal Med at [facility] 09/19/2020 02:14:00 AM EDT [facility] ([facility]) Inpatient Attender: Ja Harp MDA ttender: ITALIA ROJAS MDAttender: EMILY SMALL MDAdmitter: ITALIA ROJAS MD 09/18/2020 09:04:16 PM EDT [facility] ( in Healthcare facility) Attender: Jossie Harp MDAttender: ITALIA ROJAS MDAdmitter: ITALIA ROJAS MDConsultant: OUT OF AREA PCP, PT Does Not have 09/18/2020 08:47:00 PM EDT - 09/24/2020 12:01:00 PM EDT [facility] Inpatient Attender: Ja Harp MDA ttender: ITALIA ROJAS MDAttender: EMILY SMALL MDAdmitter: ITALIA ROJAS MD 09/18/2020 08:47:0 0 PM EDT - 09/24/2020 12:01:00 PM EDT GAIT INSTABILITY DISPGIA [facility] GAIT INSTABILITY DISPHAGIA Patient discharged. Inpatient Attender: Ad Lawrence MDAttender : JONY AGARWAL MDConsultant: Cuba Amaya MD 09/17/2020 04:09:00 PM EDT - 09/18/2020 07:01:00 PM EDT [facility] Patient discharged. Outpatient Attender: [facility] 09/17/2020 03:2 5:00 PM EDT [facility] Emergency Attender: Ad Lawrence MD 09/17/2020 09:12:00 AM EDT - 09/17/2020 04:09:00 PM EDT [facility] <td ID="encounterTypeDescriptionID0">STA NDARD OV</td><td>Cinthya Lynch NP</td><td>[facility]</td><td>09/17/2020</td><td>8:05AM</td><td>8:35AM</td><td><content ID="encounterDiagnosisID0-0">Working Diagnosis of Urinary Tract Infection</content>, <content ID="encounterDiagnosisID0-1">Disorder of Muscle Weakness (Generalized)</content>, <content ID="encounterDiagnosisID0-2">Vomiting</content></td>Outpatient Attender: Cinthya Lynch NP [facility] 09/17/2020 08:05:00 AM EDT - 09/17/2020 08:35:00 AM EDT VomitingDisorder of Muscle Weakness (Gen eralized)Working Diagnosis of Urinary Tract Infection [place] ([facility]) Vomiting Disorder of Muscle Weakness (Generalized ) Working Diagnosis of Urinary Tract Infec tion Outpatient<td ID="encounterTypeDescripti onID1">EXTENDED VISIT</td><td>Cinthya Lynch NP</td><td>[facility]</td><td>09/09/2020</td><td>8:33AM</td><td>9:26AM</td><td><content ID="encounterDiagnosisID1-0">Fatigue</content>, <content ID="encounterDiagnosisID1-1">Disorder of Muscle Weakness (Generalized)</content></td> [facility]09/2020 08:33:00 AM EDT - 09/09/2020 09:26:00 AM ED T Disorder of Muscle Weakness (Generalized)FatigueDisorder of Muscle Weakness (Generalized)Fatigue [place] ([facility]) Disorder of Muscle Weakness (Generalized ) Fatigue Disorder of Muscle Weakness (Generalized ) Fatigue Outpatient Attender: LIDIA BENZ DPM PCConsultant: Kory Amaya MD 08/30/2020 08:16:00 AM EDT - 08/30/2020 08:16:00 AM EDT [facility] Outpatient<td ID="encounterTypeDescripti onID2">EXTENDED VISIT</td><td>Cinthya Belkys Lynch NP</td><td>[facility]</td><td>08/04/2020</td><td>10:46AM</td><td>11:25AM</td><td><content ID="encounterDiagnosisID2-0">Constipation</content>, <content ID="encounterDiagnosisID2-1">Hypothyroidism</content>, <content ID="encounterDiagnosisID2-2">Muscle Spasm</content>, <content ID="encounterDiagnosisID2-3">Irritable Bowel Syndrome with Constipation</content></td> Attender: Cinthya Lynch NP [facility] 08/04/2020 10:46:00 AM EDT - 08/04/2020 11:25:00 AM ED T Irritable Bowel Syndrome with ConstipationMuscle SpasmHypothyroidismIrritable Bowel Syndrome with ConstipationMuscle SpasmHypothyroidismIrritable Bowel Syndrome with ConstipationMuscle SpasmHypothyroidismConstipationConstipationConstipation [place] ([facility]) Irritable Bowel Syndrome with Constipati on Muscle Spasm Hypothyroidism Irritable Bowel Syndrome with Constipati on Muscle Spasm Hypothyroidism Irritable Bowel Syndrome with Constipati on Muscle Spasm Hypothyroidism Constipation Constipation Constipation Outpatient Attender: LIDIA BENZ DPM PCConsultant: Kory Amaya MD 07/07/2020 08:17:00 AM EST - 07/07/2020 08:17:00 AM [facility] Outpatient Attender: ROGELIO MANSFIELD PAConsultant: Cuba walker MD 07/02/2020 08:05:00 AM EST - 07/02/2020 08:05:00 AM [facility] Outpatient Attender: ROGELIO BURCH Family Practice 07/02 07:00:00 AM EST [facility] ([facility] Enid Tiesha, CITRUS PICKER-C: [address] [place], [place] [phone], Ph. Attender: [place] Motley [facility] Medical 05/27/2020 12:00:00 AM EST [place] ([facility]) Outpatient Attender: LIDIA BENZ DPM PCConsultant: Kory Amaya MD 04/28/2020 08:14:00 AM EST - 04/28/2020 08:14:00 AM [facility] Ricci Juárez MD: [address] [place] [phone], Ph. Attender: Ricci Juárez MD [facility] Medical 04/28/2020 12:00:00 AM EST [place] ([facility]) Ricci Juárez MD: [address] [place] [address] [phone], Ph. Attender: Ricci Juárez MD [facility] Medical 04/28/2020 12:00:00 AM EST [place] ([facility]) Ricci Juárez MD: [address] [place] [address] [phone], Ph. Attender: Ricci Juárez MD [facility] Medical 04/28/2020 12:00:00 AM EST [place] ([facility]) Outpatient Attender: ROGELIO MANSFIELD PAConsultant: Cuba walker MD 04/18/2020 08:31:00 AM EST - 04/18/2020 09:31:00 AM [facility] Outpatient<td ID="encounterTypeDescripti onID3">CLINICAL USE ONLY</td><td>Cinthya Lynch LUMBER STACKER DRIVER</td><td>Family Medicine [facility],</td><td>06/26/2020</td><td>04/15/2020 2:50PM</td><td>04/15/2020 11:59PM</td><td></td> Attender: Cinthya Syed GUZMAN [facility], 04/15/2020 02:50:00 PM EST - 04/15/2020 11:59:00 PM EST [place] ([facility]) <td ID="encounterTypeDescriptionID4">STA NDARD OV</td><td>Cinthya Rizvi Essex LUMBER STACKER DRIVER</td><td>[facility],</td><td>04/15/2020</td><td>9:11AM</td><td>10:14AM</td><td><content ID="encounterDiagnosisID4-0">Hypothyroidism</content>, <content ID="encounterDiagnosisID4-1">Muscle Spasm</content>, <content ID="encounterDiagnosisID4-2">Constipation</content></td>Outpatient Attender: Cinthya Syed GUZMAN [facility], 04/15/2020 09:11:00 AM EST - 04/15/2020 10:14:00 AM EST Muscle SpasmHypothyroidismMuscle SpasmHypothyroidismMuscle SpasmHypothyroidismMuscle SpasmHypothyroidismConstipationConstipationConstipationConstipation [place] ([facility]) Muscle Spasm Hypothyroidism Muscle Spasm Hypothyroidism Muscle Spasm Hypothyroidism Muscle Spasm Hypothyroidism Constipation Constipation Constipation Constipation Outpatient Attender: ROGELIO MANSFIELD PAAt tender: LIDIA BENZ DPM PCConsultant: Cuba Amaya MD 04/05/2020 08:07:00 AM EST - 04/05/2020 08:07:0 0 AM EST [facility] Outpatient Attender: Cuba Amaay MDConsultant: Cuba walker MD 02/25/2020 07:44:00 AM EDT - 02/25/2020 08:44:00 AM EDT [facility] Outpatient Attender: LIDIA BENZ DPM PCAttender: ROGELIO MANSFIELD PAConsultant: Cuba Amaya MD 01/28/2020 08:35:00 AM EDT - 01/28/2020 08:35:0 0 AM EDT [facility] Outpatient<td ID="encounterTypeDescripti onID5">RX UPDATE</td><td>Cuba Amaya MD</td><td></td><td>03/30/2020</td><td>12/31/2019 12:34PM</td><td>12/31/2019 11:59PM</td><td></td> Attender: Cuba Amaya MD 12/31/2019 12:34:00 PM EDT - 12/31/2019 11:59:00 PM EDT [place] ([facility]) <td ID="encounterTypeDescriptionID6">STA NDARD OV</td><td>Cuba Amaya MD</td><td>[facility]</td><td>12/31/2019</td><td>9:48AM</td><td>10:28AM</td><td><content ID="encounterDiagnosisID6-0">Anemia Normochromic, Normocytic</content>, <content ID="encounterDiagnosisID6-1">Xerosis Cutis</content>, <content ID="encounterDiagnosisID6-2">Assessment of Excessive Saliva (Ptyalism)</content>, <content ID="encounterDiagnosisID6-3">Cerumen Impaction</content>, <content ID="encounterDiagnosisID6-4">Obesity</content></td>Outpatient Attender: Cuba Amaya MD [facility] 12/31/2019 09:48:00 AM EDT - 12/31/2019 10:28:00 AM EDT ObesityCerumen ImpactionAssessment of Ex cessive Saliva (Ptyalism)Xerosis CutisAnemia Normochromic, NormocyticObesityCerumen ImpactionAssessment of Excessive Saliva (Ptyalism)Xerosis CutisAnemia Normo chromic, NormocyticObesityCerumen ImpactionAssessment of Excessive Saliva (Ptyalism)Xerosis CutisAnemia Normochromic, NormocyticObesityCerumen ImpactionAssessment of Excessive Saliva (Ptyalism)Xerosis CutisAnemia Normochromic, NormocyticObesityCerumen ImpactionAssessment of Excessive Saliva (Ptyalism)Xerosis CutisAnemia Normochromic, Normocytic [place] ([facility]) Obesity Cerumen Impaction Assessment of Excessive Saliva (Ptyalism ) Xerosis Cutis Anemia Normochromic, Normocytic Obesity Cerumen Impaction Assessment of Excessive Saliva (Ptyalism ) Xerosis Cutis Anemia Normochromic, Normocytic Obesity Cerumen Impaction Assessment of Excessive Saliva (Ptyalism ) Xerosis Cutis Anemia Normochromic, Normocytic Obesity Cerumen Impaction Assessment of Excessive Saliva (Ptyalism ) Xerosis Cutis Anemia Normochromic, Normocytic Obesity Cerumen Impaction Assessment of Excessive Saliva (Ptyalism ) Xerosis Cutis Anemia Normochromic, Normocytic Immunizations Vaccine Date Status Description Data Source(s) COVID-19, mRNA, LNP-S, PF, 100 mcg/0.5 mL dose 05/27/2020 11 :47:43 AM EST completed .5 mL [place] ([facility]) COVID-19 VACCINE Moderna 05/27/2020 12:00:00 AM EST completed [employer] Vaccine Series Complete: YESThis Data wa s Submitted to [facility] Via [employer]. COVID-19, mRNA, LNP-S, PF, 100 mcg/0.5 mL dose 04/28/2020 02 :32:14 PM EST completed .5 mL [place] ([facility]) COVID-19, mRNA, LNP-S, PF, 100 mcg/0.5 mL dose 04/28/2020 02 :32:14 PM EST completed .5 mL [place] ([facility]) COVID-19, mRNA, LNP-S, PF, 100 mcg/0.5 mL dose 04/28/2020 02 :32:14 PM EST completed .5 mL [place] ([facility]) COVID-19 VACCINE Moderna 04/28/2020 12:00:00 AM EST completed [facility] Vaccine Series Complete: NOThis Data was Submitted to [facility] Via [employer]. Medications Medication Brand Name Start Date Product Form Dose Route Admi nistrative Instructions Pharmacy Instructions Status Indications Reaction Description Data Source(s) Magnesium Hydroxide 80 MG/ML Oral Suspension Milk Of Magnesi a 12/17/2020 12:00:00 AM EDT ORAL active [facility] ([facility]) Esomeprazole 40 MG Delayed Release Oral Capsule Esomeprazole Magnesium 12/17/2020 12:00:00 AM EDT ORAL active [facility] ([facility]) Lorazepam 2 MG Oral Tablet Lorazepam 12/17/2020 12:00:00 AM EDT ORAL active [facility] ([facility]) Baclofen 10 MG Oral Tablet Baclofen 12/17/2020 12:00:00 AM EDT ORAL active [facility] ([facility]) Miralax 12/17/2020 12:00:00 AM EDT active [facility] ([facility]) Docusate Sodium 100 MG Oral Capsule [Colace] Colace 12:00:00 AM EDT ORAL active [facility] ( [facility]) Risperidone 0.5 MG Oral Tablet Risperidone 12/17/2020 12:00:00 AM EDT ORAL active [facility] ([facility]) Docusate Sodium 100 MG Oral Capsule [Colace] Colace 10 0 MG Oral Capsule Colace 100 MG Oral Capsule 09/09/2020 12:00:00 AM EDT active docusate sodium 100 MG Oral Capsule [Colace] [place] ([facility]) Multivitamin Oral Tablet Multivitamin Oral Tablet 08/07/2020 12:00: 00 AM EDT active Multivitamin [place] ([facility]) Senna Laxative 8.6 MG Oral Tablet Senna Laxative 8.6 MG Oral Tablet 08/04/2020 12:00:00 AM EDT aborted Senna L axative [facility] ([facility]) montelukast 10 MG Oral Tablet Montelukast Sodium 10 MG Oral Tablet Montelukast Sodium 10 MG Oral Tablet 08/04/2020 12:00:00 AM EDT active montelukast 10 MG Oral Tablet [facility]) POLYETHYLENE GLYCOL 3350 142 MG/ML Oral Solution [Miralax] MiraLax 17 GM/SCOOP Oral Powder MiraLax 17 GM/SCOOP Oral Powder 08/04/2020 12:00:00 AM EDT active polyethylene gly col 3350 06860 MG Powder for Oral Solution [Miralax] [facility]) Omeprazole 40 MG Delayed Release Oral Ca psule Omeprazole 40 MG Oral Capsule Delayed Release Omeprazole 40 MG Oral Capsule Delayed Release 08/05/19 12:00:00 AM EDT active omeprazole 40 MG Delayed Release Oral Capsule [facility]) Lactulose 667 MG/ML Oral Solution [Const ulose] Constulose 10 GM/15ML Oral Solution Constulose 10 GM/15ML Oral Solution 08/04/2020 12:00:00 AM EDT active lactulose 667 MG/ML Oral Millie ution [Constulose] [facility]) Baclofen 20 MG Oral Tablet Baclofen 20 MG Oral Tablet 2020 12:00:00 AM EDT active baclofen 20 MG Or al Tablet [facility]) Karolina Allergy 180 MG Oral Tablet Karolina Allergy 180 MG Or al Tablet 08/04/2020 12:00:00 AM EDT active Karolina Allergy [facility]) Folic Acid 1 MG Oral Tablet Folic Acid 1 MG Oral Tablet 10/2020 12:00:00 AM EDT active folic acid 1 MG O ral Tablet [facility]) calcium polycarbophil 625 MG Oral Tablet [FiberCon] Fi berCon 625 MG Oral Tablet FiberCon 625 MG Oral Tablet 08/04/2020 12:00:00 AM EDT active calcium polycarbophil 625 MG Oral Tablet [FiberCon] [facility]) carbamide peroxide 65 MG/ML Otic Solution [Debrox] Paula mirza 6.5% Otic Solution Debrox 6.5% Otic Solution 08/04/2020 12:00:00 AM EDT active carbamide peroxide 65 MG/ML Otic Solution [Debrox] [facility] [place]) Levothyroxine Sodium 0.112 MG Oral Table t Levothyroxine Sodium 112 MCG Oral Tablet Levothyroxine Sodium 112 MCG Oral Tablet 08/04/2020 12:00:00 AM EDT 1 active levothyroxine sodium 0.112 MG Oral Tablet [facility]) linaclotide 0.145 MG Oral Capsule [Linzess] Linzess 14 5 MCG Oral Capsule Linzess 145 MCG Oral Capsule 08/04/2020 12:00:00 AM EDT 1 active linaclotide 0.145 MG Oral Capsule [Linzess] [place] ([facility]) Docusate Sodium 100 MG Oral Capsule [Colace] Colace 10 0 MG Oral Capsule Colace 100 MG Oral Capsule 08/04/2020 12:00:00 AM EDT aborted docusate sodium 100 MG Oral Capsule [Colace] [facility]) Kariva 0.15-0.02/0.01 MG (21/5) Oral Tablet Kariva 0.1 5-0.02/0.01 MG (21/5) Oral Tablet 08/04/2020 12:00:00 AM EDT 1 active {21 (desogestrel 0.15 MG / ethinyl estradiol 0.02 MG Oral Tablet) / 5 (ethinyl estradiol 0.01 MG Oral Tablet) / 2 (inert ingredients 1 MG Oral Tablet) } Pack [Kariva 28 Day] [place] ([facility]) Sodium Phosphate, Dibasic 35.5 MG/ML / S odium Phosphate, Monobasic 96.4 MG/ML Enema Fleet Enema 7-19 GM/118ML Rectal Fleet Enema 7-19 GM/118ML Rectal 08/04/2020 12:00:00 AM EDT 1 active sodium phosphate, dibasic 35.5 MG/ML / sodium phosphate, monobasic 96.4 MG/ML Enema [facility]) traMADol HCl ER (Biphasic) 300 MG Oral Tablet Extended Release 24 Hour traMADol HCl ER (Biphasic) 300 MG Oral Tablet Extended Release 24 Hour 07/05/2020 12:00:00 AM EST aborted Matrix Delivery 24 HR tramadol hydrochloride 300 MG Extended Release Oral Tablet [facility]) traMADol HCl ER (Biphasic) 300 MG Oral Tablet Extended Release 24 Hour traMADol HCl ER (Biphasic) 300 MG Oral Tablet Extended Release 24 Hour 07/05/2020 12:00:00 AM EST active Matrix Delivery 24 HR tramadol hydrochloride 300 MG Extended Release Oral Tablet [facility]) 24 HR tramadol hydrochloride 300 MG Exte nded Release Oral Capsule traMADol HCl ER 300 MG Oral Capsule Extended Release 24 Hour traMADol HCl ER 300 MG Oral Capsule Extended Release 24 Hour 06/28/2020 12:00:00 AM EST 1 aborted 24 HR tramadol hydrochloride 300 MG Extended Release O ral Capsule [facility]) calcium polycarbophil 625 MG Oral Tablet [FiberCon] Fi berCon 625 MG Oral Tablet FiberCon 625 MG Oral Tablet 04/15/2020 12:00:00 AM EST aborted calcium polycarbophil 625 MG Oral Tablet [FiberCon] [facility]) Sodium Phosphate, Dibasic 35.5 MG/ML / S odium Phosphate, Monobasic 96.4 MG/ML Enema Fleet Enema 7-19 GM/118ML Rectal Fleet Enema 7-19 GM/118ML Rectal 04/15/2020 12:00:00 AM EST 1 aborted sodium phosphate, dibasic 35.5 MG/ML / sodium phosphate, monobasic 96.4 MG/ML Enema [facility]) Lactulose 667 MG/ML Oral Solution [Const ulose] Constulose 10 GM/15ML Oral Solution Constulose 10 GM/15ML Oral Solution 04/15/2020 12:00:00 AM EST aborted lactulose 667 MG/ML Oral Millie ution [Constulose] [facility]) carbamide peroxide 65 MG/ML Otic Solution [Debrox] Paula mirza 6.5% Otic Solution Debrox 6.5% Otic Solution 04/15/2020 12:00:00 AM EST aborted carbamide peroxide 65 MG/ML Otic Solution [Debrox] [facility]) linaclotide 0.145 MG Oral Capsule [Linzess] Linzess 14 5 MCG Oral Capsule Linzess 145 MCG Oral Capsule 04/15/2020 12:00:00 AM EST 1 aborted linaclotide 0.145 MG Oral Capsule [Linzess] [facility]) Baclofen 20 MG Oral Tablet Baclofen 20 MG Oral Tablet 2019 12:00:00 AM EST aborted baclofen 20 MG O ral Tablet [facility]) Docusate Sodium 100 MG Oral Capsule [Colace] Colace 10 0 MG Oral Capsule Colace 100 MG Oral Capsule 04/15/2020 12:00:00 AM EST aborted docusate sodium 100 MG Oral Capsule [Colace] [place] ([facility]) Karolina Allergy 180 MG Oral Tablet Karolina Allergy 180 MG Or al Tablet 04/15/2020 12:00:00 AM EST aborted Allegr a Allergy [facility]) montelukast 10 MG Oral Tablet Montelukast Sodium 10 MG Oral Tablet Montelukast Sodium 10 MG Oral Tablet 04/15/2020 12:00:00 AM EST aborted montelukast 10 MG Oral Tablet [facility]) Omeprazole 40 MG Delayed Release Oral Ca psule Omeprazole 40 MG Oral Capsule Delayed Release Omeprazole 40 MG Oral Capsule Delayed Release 04/15/20 12:00:00 AM EST aborted omeprazole 40 MG Delayed Release Oral Capsule [facility]) Folic Acid 1 MG Oral Tablet Folic Acid 1 MG Oral Tablet 03/30 12:00:00 AM EST aborted folic acid 1 MG Oral Tablet [facility]) Levothyroxine Sodium 0.112 MG Oral Table t Levothyroxine Sodium 112 MCG Oral Tablet Levothyroxine Sodium 112 MCG Oral Tablet 04/15/2020 12:00:00 AM EST 1 aborted levothyroxine sodium 0.112 MG Oral Tablet [facility]) Kariva 0.15-0.02/0.01 MG (21/5) Oral Tablet Kariva 0.1 5-0.02/0.01 MG (21/5) Oral Tablet 04/15/2020 12:00:00 AM EST 1 aborted {21 (desogestrel 0.15 MG / ethinyl estradiol 0.02 MG Oral Tablet) / 5 (ethinyl estradiol 0.01 MG Oral Tablet) / 2 (inert ingredients 1 MG Oral Tablet) } Pack [Kariva 28 Day] [place] ([facility]) 24 HR tramadol hydrochloride 300 MG Exte nded Release Oral Capsule traMADol HCl ER 300 MG Oral Capsule Extended Release 24 Hour traMADol HCl ER 300 MG Oral Capsule Extended Release 24 Hour 03/30/2020 12:00:00 AM EST 1 aborted 24 HR tramadol hydrochloride 300 MG Extended Release O ral Capsule [place] ([facility]) Levothyroxine Sodium 0.112 MG Oral Table t Levothyroxine Sodium 112 MCG Oral Tablet Levothyroxine Sodium 112 MCG Oral Tablet 03/17/2020 12:00:00 AM EST 1 aborted levothyroxine sodium 0.112 MG Oral Tablet [facility]) Kariva 0.15-0.02/0.01 MG (21/5) Oral Tablet Kariva 0.1 5-0.02/0.01 MG (21/5) Oral Tablet 01/27/2020 12:00:00 AM EDT 1 aborted {21 (desogestrel 0.15 MG / ethinyl estradiol 0.02 MG Oral Tablet) / 5 (ethinyl estradiol 0.01 MG Oral Tablet) / 2 (inert ingredients 1 MG Oral Tablet) } Pack [Kariva ] [place] ([facility]) Sodium Phosphate, Dibasic 35.5 MG/ML / S odium Phosphate, Monobasic 96.4 MG/ML Enema Fleet Enema 7-19 GM/118ML Rectal Fleet Enema 7-19 GM/118ML Rectal 12/31/2019 12:00:00 AM EDT 1 aborted sodium phosphate, dibasic 35.5 MG/ML / sodium phosphate, monobasic 96.4 MG/ML Enema [facility]) 24 HR tramadol hydrochloride 300 MG Exte nded Release Oral Capsule traMADol HCl ER 300 MG Oral Capsule Extended Release 24 Hour traMADol HCl ER 300 MG Oral Capsule Extended Release 24 Hour 12/31/2019 12:00:00 AM EDT 1 aborted 24 HR tramadol hydrochloride 300 MG Extended Release O ral Capsule [facility]) montelukast 10 MG Oral Tablet Montelukast Sodium 10 MG Oral Tablet Montelukast Sodium 10 MG Oral Tablet 12/23/2019 12:00:00 AM EDT aborted montelukast 10 MG Oral Tablet [facility]) Levothyroxine Sodium 0.112 MG Oral Table t [Synthroid] Synthroid 112 MCG Oral Tablet Synthroid 112 MCG Oral Tablet 12/23/2019 12:00:00 AM EDT aborted levothyroxine sodium 0.112 MG Or al Tablet [Synthroid] [place] ([facility]) Baclofen 20 MG Oral Tablet Baclofen 20 MG Oral Tablet 2019 12:00:00 AM EDT aborted baclofen 20 MG O ral Tablet [facility]) Docusate Sodium 100 MG Oral Capsule [Colace] Colace 10 0 MG Oral Capsule Colace 100 MG Oral Capsule 12/23/2019 12:00:00 AM EDT aborted docusate sodium 100 MG Oral Capsule [Colace] [facility]) Karolina Allergy 180 MG Oral Tablet Karolina Allergy 180 MG Or al Tablet 12/23/2019 12:00:00 AM EDT aborted Allegr a Allergy [place] ([facility]) Lactulose 667 MG/ML Oral Solution [Const ulose] Constulose 10 GM/15ML Oral Solution Constulose 10 GM/15ML Oral Solution 12/23/2019 12:00:00 AM EDT aborted lactulose 667 MG/ML Oral Millie ution [Constulose] [facility]) Omeprazole 40 MG Delayed Release Oral Ca psule Omeprazole 40 MG Oral Capsule Delayed Release Omeprazole 40 MG Oral Capsule Delayed Release 12/23/19 12:00:00 AM EDT aborted omeprazole 40 MG Delayed Release Oral Capsule [facility]) calcium polycarbophil 625 MG Oral Tablet [FiberCon] Fi berCon 625 MG Oral Tablet FiberCon 625 MG Oral Tablet 12/23/2019 12:00:00 AM EDT aborted calcium polycarbophil 625 MG Oral Tablet [FiberCon] [facility]) Multi Vitamin Daily Oral Tablet Multi Vitamin Daily Oral Tab let 12/23/2019 12:00:00 AM EDT 1 aborted Multi V itamin Daily [place] ([facility]) linaclotide 0.145 MG Oral Capsule [Linzess] Linzess 14 5 MCG Oral Capsule Linzess 145 MCG Oral Capsule 12/23/2019 12:00:00 AM EDT 1 aborted linaclotide 0.145 MG Oral Capsule [Linzess] [facility]) Folic Acid 1 MG Oral Tablet Folic Acid 1 MG Oral Tablet 11/29 12:00:00 AM EDT aborted folic acid 1 MG Oral Tablet [facility]) Kariva 0.15-0.02/0.01 MG (21/5) Oral Tablet Kariva 0.1 5-0.02/0.01 MG (21/5) Oral Tablet 12/22/2019 12:00:00 AM EDT 1 aborted {21 (desogestrel 0.15 MG / ethinyl estradiol 0.02 MG Oral Tablet) / 5 (ethinyl estradiol 0.01 MG Oral Tablet) / 2 (inert ingredients 1 MG Oral Tablet) } Pack [Kariva 28 Day] [facility]) carbamide peroxide 65 MG/ML Otic Solution [Debrox] Paula mirza 6.5% Otic Solution Debrox 6.5% Otic Solution 11/10/2019 12:00:00 AM EDT aborted carbamide peroxide 65 MG/ML Otic Solution [Debrox] [facility]) Omeprazole 40 MG Delayed Release Oral Ca psule Omeprazole 40 MG Oral Capsule Delayed Release Omeprazole 40 MG Oral Capsule Delayed Release 11/03/19 12:00:00 AM EDT aborted omeprazole 40 MG Delayed Release Oral Capsule [facility]) 24 HR tramadol hydrochloride 300 MG Exte nded Release Oral Capsule traMADol HCl ER 300 MG Oral Capsule Extended Release 24 Hour traMADol HCl ER 300 MG Oral Capsule Extended Release 24 Hour 10/07/2019 12:00:00 AM EDT 1 aborted 24 HR tramadol hydrochloride 300 MG Extended Release O ral Capsule [facility]) Karolina Allergy 180 MG Oral Tablet Karolina Allergy 180 MG Or al Tablet 10/06/2019 12:00:00 AM EDT aborted Allegr a Allergy [facility]) Docusate Sodium 100 MG Oral Capsule [Colace] Colace 10 0 MG Oral Capsule Colace 100 MG Oral Capsule 10/06/2019 12:00:00 AM EDT aborted docusate sodium 100 MG Oral Capsule [Colace] [place] ([facility]) Multi Vitamin Daily Oral Tablet Multi Vitamin Daily Oral Tab let 10/06/2019 12:00:00 AM EDT 1 aborted Multi V itamin Daily [place] ([facility]) Levothyroxine Sodium 0.112 MG Oral Table t [Synthroid] Synthroid 112 MCG Oral Tablet Synthroid 112 MCG Oral Tablet 10/06/2019 12:00:00 AM EDT aborted levothyroxine sodium 0.112 MG Or al Tablet [Synthroid] [place] ([facility]) Baclofen 20 MG Oral Tablet Baclofen 20 MG Oral Tablet 2019 12:00:00 AM EDT aborted baclofen 20 MG O ral Tablet [place] ([facility]) Lactulose 667 MG/ML Oral Solution [Const ulose] Constulose 10 GM/15ML Oral Solution Constulose 10 GM/15ML Oral Solution 10/06/2019 12:00:00 AM EDT aborted lactulose 667 MG/ML Oral Millie ution [Constulose] [place] ([facility]) calcium polycarbophil 625 MG Oral Tablet [FiberCon] Fi berCon 625 MG Oral Tablet FiberCon 625 MG Oral Tablet 10/06/2019 12:00:00 AM EDT aborted calcium polycarbophil 625 MG Oral Tablet [FiberCon] [place] ([facility]) linaclotide 0.145 MG Oral Capsule [Linzess] Linzess 14 5 MCG Oral Capsule Linzess 145 MCG Oral Capsule 10/06/2019 12:00:00 AM EDT 1 aborted linaclotide 0.145 MG Oral Capsule [Linzess] [place] ([facility]) montelukast 10 MG Oral Tablet Montelukast Sodium 10 MG Oral Tablet Montelukast Sodium 10 MG Oral Tablet 10/06/2019 12:00:00 AM EDT aborted montelukast 10 MG Oral Tablet [facility]) Folic Acid 1 MG Oral Tablet Folic Acid 1 MG Oral Tablet 11/2019 12:00:00 AM EDT aborted folic acid 1 MG Oral Tablet [facility]) Sodium Phosphate, Dibasic 35.5 MG/ML / S odium Phosphate, Monobasic 96.4 MG/ML Enema Fleet Enema 7-19 GM/118ML Rectal Fleet Enema 7-19 GM/118ML Rectal 08/27/2019 12:00:00 AM EDT 1 aborted sodium phosphate, dibasic 35.5 MG/ML / sodium phosphate, monobasic 96.4 MG/ML Enema [place] ([facility]) Kariva 0.15-0.02/0.01MG (21/5) Oral Tablet Kariva 0.15 -0.02/0.01MG (21/5) Oral Tablet 09/30/2018 12:00:00 AM EDT 1 aborted {21 (desogestrel 0.15 MG / ethinyl estradiol 0.02 MG Oral Tablet) / 5 (ethinyl estradiol 0.01 MG Oral Tablet) / 2 (inert ingredients 1 MG Oral Tablet) } Pack [Kariva 28 Day] [place] ([facility]) Insurance Providers Payer name Policy type / Coverage type Policy ID Covered green party ID Covered green party's relationship to irving Policy [place] Plan Information MEDICARE [id number] Medicare Part [place] of [place] Medicare Primary 0 [id number] Self 0 Medicare [place] Medicare Primary 0 [id number] Self 0 Medicare [place] Medicare Primary 0 [id number] Self 0 Medicare [place] Medicare Primary 0 [id number] Self 0 Medicare [place] Medicare Primary 0 [id number] Self 0 Medicare [place] Medicare Primary 0 [id number] Self 0 Medicare [place] Medicare Primary 0 [id number] Self 0 Medicare [facility] Medicare Primary [id number] Self [id number] Medicare Part [place] of [place] Medicare Primary 0 [id number] Self 0 Medicare [place] Medicare Primary 0 [id number] Self 0 [place] [id number] Self 5 [id number] Medicare [facility] Medicare Primary [id number] Self 5 [id number] Medicare [facility] Medicare Primary [id number] Self 5 [id number] Medicaid [place] Medif[place] Part B [id number] Self [id number] Medicare [facility] Medicare Primary [id number] Self 5 [id number] MEDICARE [place] [id number] S [id number] [place] Supplemental Policy 0 [id number] Self 0 Medicare Part B of [facility] Other 0 [id number] Self 0 [place] Supplemental [place] 0 [id number] Self 0 Medicare Part B of [facility] Other 0 [id number] Self 0 [place] Supplemental Policy 0 [id number] Self 0 Medicare Part B of [facility] Other 0 [id number] Self 0 EMED[place] [id number] [place] Supplemental Policy 0 [id number] Self 0 Medicare Part B of [facility] Other 0 [id number] Self 0 [place] Supplemental Policy 0 [id number] Self 0 Medicare Part B of [facility] Other 0 [id number] Self 0 [place] Supplemental [place] 0 [id number] Self 0 Medicare Part B of [facility] Other 0 [id number] Self 0 [place] Supplemental Policy 0 [id number] Self 0 Medicare Part B of [facility] Other 0 [id number] Self 0 [place] Supplemental Policy 0 [id number] Self 0 Medicare Part B of [facility] Other 0 [id number] Self 0 [place] Policy 0 [id number] Self 0 Medicare Part B of [facility] Other 0 [id number] Self 0 [place] Supplemental Policy 0 [id number] Self 0 Medicare Part B of [facility] Other 0 [id number] Self 0 [place] [id number] 18 [id number] [place] Supplemental Policy 0 [id number] Self 0 Medicare Part B of [facility] Other 0 [id number] Self 0 MEDICAID [id number] [place] Supplemental Policy 0 [id number] Self 0 Medicare Part B of [facility] Other 0 [id number] Self 0 [place] Supplemental Policy 0 [id number] Self 0 Medicare Part B of [facility] Other 0 [id number] Self 0 ANSI-Medicaid [id number] ANSI-Medicare Part B [id number] Medicaid [place] Medig[place] Part B [id number] Self [id number] [place] Primary [id number] Self [id number] Medicaid [facility] Supplemental Policy 0 [id number] Self 0 Medicare Part B of [facility] Other 0 [id number] Self 0 [place] Supplemental Policy 0 [id number] Self 0 Medicare Part B of [facility] Other 0 [id number] Self 0 [place] Supplemental Policy 0 [id number] Self 0 [place] Supplemental Policy 0 [id number] Self 0 [place] [id number] Self [id number] [place] Primary [id number] Self [id number] [place] Supplemental Policy 0 [id number] Self 0 MEDICARE PART A-O/P [id number] 18 [id number] MEDICARE PART A-O/P [id number] 18 [id number] Medicare Dme Supplies Medigap Part B [id number] Self 5 [id number] Medicare Dme Supplies Medigap Part B [id number] Self 5 [id number] [place] [id number] Self [id number] [place] [id number] Self [id number] Medicare [facility] Medicare Primary [id number] Self [id number] MEDICARE [id number] [place] Supplemental Policy 0 [id number] Self 0 Medicaid [place] Med[place] Part B [id number] Self [id number] Medicare [facility] Medicare Primary [id number] Self [id number] [place] Supplemental Policy 0 [id number] Self 0 [place] Supplemental Policy 0 [id number] Self 0 [place] Supplemental Policy 0 [id number] Self 0 [place] Supplemental Policy 0 [id number] Self 0 Medicaid [place] Part [place] [id number] Self [id number] [place] Primary [id number] Self [id number] Medicare Dme Supplies Medigap Part B [id number] Self 5 [id number] Medicaid [facility] Part B [id number] Self [id number] [place] Primary [id number] Self [id number] Medicaid [facility] Part B [id number] Self [id number] [place] Primary [id number] Self [id number] Medicaid [facility] Supplemental Policy 0 [id number] Self 0 Medicaid [facility] Part B [id number] Self [id number] [place] Primary [id number] Self [id number] MEDICAID [id number] MEDICARE -O/P [id number] 18 [id number] [facility] MEDICAID [id number] MEDICARE [id number] SP [id number] MEDICARE CO [id number] 18 [id number] MEDICAID CO [id number] 18 [id number] MEDICAID -PHYSICIAN [id number] MEDICAID [id number] 18 [id number] MEDICARE PART A [facility] [id number] 18 [id number] MEDICARE PART A-O/P [id number] 18 [id number] MEDICAID-O/P [id number] 18 [id number] MEDICAID -PHYSICIAN [id number] 1 [id number] MEDICAID -O/P RAD ONLY [id number] 18 [id number] MEDICAID - O/P EMERGENCY ROOM [id number] 18 [id number] MEDICARE PART A -I/P [id number] 18 [id number] MEDICAID -I/P [id number] 18 [id number] MEDICAID HEA [id number] MEDICARE [place] [id number] Problems, Conditions, and Diagnoses Code Display Name Description Problem Type Effective Dates Data Source(s) [id number] Encounter for gynecological examination (general) (routine) without abnormal findings Encounter for gynecological examination (general) (routine) without abnormal findings Diagnosis 01/12/2021 10:02:00 AM EDT [facility] N390 Urinary tract infection, site not specif ied Urinary tract infection, site not specified Diagnosis 12/29/2020 04:39:00 PM EDT [facility] [id number] Unspecified place in hospita l as the place of occurrence of the external cause Unspecified place in hospital as the elisha ce of occurrence of the external cause Diagnosis 12/15/2020 11:36:00 PM EDT [facility] [id number] Fall on same level, unspecified, initial encounter Fall on same level, unspecified, initial encounter Diagnosis 12/15/2020 11:36:00 PM EDT [facility] F419 Anxiety disorder, unspecified Anxiety disorder, unspec ified Diagnosis 12/15/2020 11:36:00 PM EDT [facility] E039 Hypothyroidism, unspecified Hypothyroidism, unspecifie d Diagnosis 12/15/2020 11:36:00 PM EDT [facility] [id number] Contusion of scalp, initial encounter Co ntusion of scalp, initial encounter Diagnosis [id number] Unspecified injury of head, initial enco unter Unspecified injury of head, initial encounter Diagnosis 12/15/2020 11:36:00 PM [facility] R1310 Dysphagia, unspecified Dysphagia, unspecified Diagnosi s 09/17/2020 04:09:00 PM [facility] Z8701 Personal history of pneumonia (recurrent ) Personal history of pneumonia (recurrent) Diagnosis 09/17/2020 04:09:00 PM [facility] F71 Moderate intellectual disabilities Moderate inte llectual disabilities Diagnosis 09/17/2020 04:09:00 PM [facility] K5900 Constipation, unspecified Constipation, unspecified Di agnosis 09/17/2020 04:09:00 PM [facility] F339 Major depressive disorder, recurrent, un specified Major depressive disorder, recurrent, unspecified Diagnosis 09/17/2020 04:09:00 PM [facility] 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 Diagnosis 09/17/2020 04:09:00 PM [facility] G459 Transient cerebral ischemic attack, unsp ecified Transient cerebral ischemic attack, unspecified Diagnosis 09/17/2020 04:09:00 PM [facility] Z1152 ENCOUNTER FOR SCREENING FOR COVID-19 ENCOUNTER F OR SCREENING FOR COVID-19 Diagnosis 09/17/2020 09:12:00 AM [facility] R000 Tachycardia, unspecified Tachycardia, unspecified Diag nosis 09/17/2020 09:12:00 AM [facility] B351 Tinea unguium Tinea unguium Diagnosis 07/07/2020 08:17:00 AM [facility] M2040 Other hammer toe(s) (acquired), unspecif ied foot Other hammer toe(s) (acquired), unspecified foot Diagnosis 07/07/2020 08:17:00 AM [facility] L84 Corns and callosities Corns and callosities Diagnosis 07/07/2020 08:17:00 AM [facility] B23543 Unspecified atherosclerosis of lumbee arteries of extremities, bilateral legs Unspecified atherosclerosis of lumbee ar teries of extremities, bilateral legs Diagnosis 07/07/2020 08:17:00 AM [facility] F72 Severe intellectual disabilities Severe intellectual d isabilities Diagnosis 07/02/2020 08:05:00 AM [facility] F6381 Intermittent explosive disorder Intermittent explosive disorder Diagnosis 07/02/2020 08:05:00 AM [facility] I71115 Other manager long term care (current) drug therapy O ther care home (current) drug therapy Diagnosis 04/05/2020 08:07:00 AM [facility] [id number] Hormone replacement therapy Hormone replacement therap y Diagnosis [facility] Unspecified intellectual disabilities Unspecifie d intellectual disabilities Diagnosis 02/25/2020 [facility]:44[facility] M0689 Other specified rheumatoid arthritis, mu ltiple sites Other specified rheumatoid arthritis, multiple sites Diagnosis 01/28/2020 08:35:00 AM [facility] Z79.899 Taking medication Taking medication Problem 04/05/2020 12:00:00 AM [facility] ([facility]) Surgeries/Procedures Procedure Description Date Indications Data Source(s) RADIOLOGIC EXAMINATION KNEE 1/2 VIEWS 01/20/2021 12:00 :00 AM [facility] OFFICE OUTPATIENT VISIT 15 MINUTES 01/20/2021 12:00:00 AM EDT [facility] OFFICE OUTPATIENT VISIT 25 MINUTES 01/19/2021 12:00:00 AM EDT [facility]) INITIAL PREVENTIVE MEDICINE NEW PATIENT 40-64YRS 01/12 12:00:00 AM EDT [facility] Monitoring of Cardiac Electrical Activity, External Ap proach Monitoring of Cardiac Electrical Activity, External Approach 09/17/2020 12:00:00 AM [facility] Introduction of Other Anti-infective int o Peripheral Vein, Percutaneous Approach Introduction of Other Anti-infective int o Peripheral Vein, Percutaneous Approach 09/17/2020 12:00:00 AM [facility] Introduction of Electrolytic and Water B alance Substance into Peripheral Vein, Percutaneous Approach Introduction of Electrolytic and Water B alance Substance into Peripheral Vein, Percutaneous Approach 09/17/2020 12:00:00 AM EDT [facility] Computerized Tomography (CT Scan) of Chest and Abdomen Computerized Tomography (CT Scan) of Chest and Abdomen 09/17/2020 12:00:00 AM EDT [facility] Pare Hyperkeratotic Lesion, 2-4 08/30/2020 12:00:00 AM EDT [facility] ([facility]) Debridement Nails Any Method 6 Or More 08/30/2020 12:0 0:00 AM EDT [facility] ([facility]) Pare Hyperkeratotic Lesion, 2-4 04/28/2020 12:00:00 AM EST [facility] ([facility]) Debridement Nails Any Method 6 Or More 04/28/2020 12:0 0:00 AM EST [facility] ([facility]) Pare Hyperkeratotic Lesion, 2-4 01/28/2020 12:00:00 AM EDT [facility] ([facility]) Debridement Nails Any Method 6 Or More 01/28/2020 12:0 0:00 AM EDT [facility] ([facility]) REMOVE CERUMEN (w/INSTRUMENT) REMOVE CERUMEN (w/INSTRUMENT) 12/31/2019 12:00:00 AM EDT [facility] ([facility]) Results ID Date Data Source [id number] 01/31/2021 04:14:00 PM [facility]T [facility] Name Value Range Interpretation Code Description Data Poonam rce(s) Supporting Document(s) SARS coronavirus 2 RNA [Presence] in Res piratory specimen by BLANCA with probe detection NEGATIVE [facility]SDOH This lab was ordered by [facility] a nd reported by [facility]. ID Date Data Source [id number] 01/12/2021 10:44:00 AM EDT [facility] ([facility]) Name Value Range Interpretation Code Description Data Poonam rce(s) Supporting Document(s) Mammo Screening Bilateral with CAD Laboratory test result [facility]) ID Date Data Source [id number] 01/02/2021 10:26:00 AM EDT [facility] Name Value Range Interpretation Code Description Data Poonam rce(s) Supporting Document(s) CULTURE URINE [facility] _CULTURE URINE_$$[id number]$$627873$$551532$$513194$$726418$$427055$$390313$$448289$$395653$$ 370618$$729580$$459304$$701505$$027038$$481745$$124703$$495582$$677425$$937370$$ 098500$$788675$$281532$$926451$$008815$$365156$$840415$$330287 -- Continued on next page --Patient: SHIVANI Lopez Order: [id number] Page 2Culture: CULTURE URINE Status: Final ==== -- Continued on next page --Patient: SHIVANI Lopez Order: [id number] Page 2Culture: CULTURE URINE Status: Prelim =====$$[id number]$$[id number] DATE/TIME: 01/02/2021 10:05Culture: CULTURE URINE Status: FinalIsolate 1 Proteus mirabilis Flag: A . . . . . . .74,000 Colonies/mLCefazolin <=4 ug/mLCefazolin with an MAXIMUS <=16 predicts susceptibility to the oral agentscefaclor, cefdinir, cefpodoxime, cefprozil, cefuroxime, cephalexin,and loracarbef when used for therapy of uncomplicated urinary tractinfections due to E. coli, Klebsiella pneumoniae, and Proteusmirabilis. Previous result entered on 01/01/2021 06:56 ET Gram negative rodsUrine Culture,Comprehensive: P9Yhohspy mirabilis Flag: APatient: SHIVANI Lopez Order: [id number] Page 3Culture: CULTURE URINE Status: Final ISOLATE 1 Proteus mirabilis Isolate 1Antibiotic MAXIMUS IntUnits ug/mL Amoxicillin/Cl avulanic Acid S S . . . . . .20-8Ampicillin S S . . . . . .28- 1Cefepime S S . . . . . .6644-9Ceftriaxone S S . . . . . .141-2Cefuroxime S S . . . . . .145-3Ciprofloxacin I I . . . . . .185-9Ertapenem S S . . . . . .54711-0Itahesvpbg S S . . . . . .267-5Levofloxacin I I . . . . . .30627- 8Meropenem S S . . . . . .6652-2Nitrofurantoin R R . . . . . .363-2Piperacillin/Tazobactam S S . . . . . .412-7Tetracycline R R . . . . . .496-0Tobramycin S S . . . . . .508- 2Trimethoprim/Sulfa S S . . . . . .516-5P1 Test performed by: Dorian WALSH #: [id number] [address] [place] [address] [id number] [facility] [id number] Director : Neil Estrada MD NPI #:Health Science Writer : 01/01/21.0730.XMT.SENT REF 01/02/21.1026.XMT.SENT REF 01/02/21.1036.XMT.SENT REF ID Date Data Source [id number] 12/29/2020 05:36:00 PM EDT [facility] Name Value Range Interpretation Code Description Data Poonam rce(s) Supporting Document(s) [facility] COL[facility] yellow NORMAL: Yellow [facility] ospital CLARITY clear NORMAL: Clear [facility] spital Specific gravity of Urine by Test strip 1.020 1.001 - 1.030 [facility] pH 6 5 - 9 [facility] Glucose [Mass/volume] in Urine by Test strip NORM NORMAL: Negat [facility] Bilirubin.total [Presence] in Urine by Test strip NEG NORMAL: Negative [facility] Ketones [Presence] in Urine by Test strip NEG NORMAL: Negative [facility] Protein [Mass/volume] in Urine by Test strip NEG NORMAL: Negat [facility] Nitrite [Presence] in Urine by Test strip NEG NORMAL: Negative [facility] BLOOD NEG NORMAL: Negative [facility] LEUK EST NEG NORMAL: Negative [facility] Urobilinogen [Mass/volume] in Urine by Test strip NOR less pieter n 1.0 mg/dL [facility] MICROSCOPIC Not Indicate [facility]ital ID Date Data Source [id number] 12/16/2020 11:15:00 PM EDT [facility] [address] [place] [address] RESPIRATORY CARE REPORT ==== ---------NAME------- NUMBER SEX AGE ADMIT DISC. XRAY# F/C TYPESHIVANI Lopez [id number] F 50 12/15/20 12/16/20 [id number] MB4 E/R DATE OF : 1970 M/R# [id number] #: [phone] TR-08 LOCATION: [place] [address] COMP LETE:12/16/20 01:25 AJP 13387 PHYSICIAN: AMOS MENENDEZ NOR Name Value Range Interpretation Code Description Data Poonam rce(s) Supporting Document(s) ID Date Data Source [id number] 12/16/2020 07:40:00 AM EDT [facility] [address] [place] [address] PHONE: [phone] FAX: [phone] Name .................. : SHIVANI Lopez Acct Number.................. : [id number] ROOM. ................. : TR-08 Number ................... : [id number] Stay type ............. : E/R Discharge Date......... ... : 12/16/20 Admit Date ......... : 12/15/20 Admit Phys .................... : COONEYNORM Date of ....... : 1970 Family Phys ................... : JOSE LUIS ROBLEDO Phone .................. : [phone] Age ................................ : 50 Film# .................. .:[id number] Sex ................................. : F Unsigned transcriptions are preliminary reports and do not represent a medical or legal document CT CERV SPINE W/O CONTRAS 04091 COMPLETE:12/16/20 01:51 DLA 47293 Reason(s): Trauma/Injury CT CERVICAL SPINE WITHOUT IV CONTRAST INDICATION: Trauma/injury COMPARISON: None CONTRAST: None Preliminary report for this exam was provided by [facility] . PROCEDURE: The patient is scanned axially from C1 to the upper thoracic spine. Multiplanar reconstructions are performed. One or more of the following dose reduction techniques were utilized in effectively lowering the radiation dose f or this examination: Automated Exposure Control, Adjustment of the mA and/or kV according to patient size, or Iterative reconstruction. FINDINGS: Normal vertebral body and disc space height. Small osteophytes C2-3 and C6-7. No bony canal stenosis or indication of significant foraminal narrowing. No fracture. IMPRESSION: Mild degenerative disc changes. No acute bony traumatic abnormality. Electronically Reviewed and Signed By Ricci Perkins MD , 12/16/20 07:41, SCB Page 1 of 2 [place] [address] PHONE: [phone] FAX: [phone] Name .................. : SHIVANI LEDESMA Jessica Acct Number.................. : [id number] ROOM. ................. : TR-08 Number ................... : [id number] Stay type ............. : E/R Discharge Date......... ... : 12/16/20 Admit Date ......... : 12/15/20 Admit Phys .................... : COONEYNORM Date of ....... : 1970 Family Phys ................... : JOSE LUIS ROBLEDO Phone .................. : [phone] Age ................................ : 50 Film# .................. .:[id number] Sex ................................. : F Unsigned transcriptions are preliminary reports and do not represent a medical or legal document CT CERV SPINE W/O CONTRAS 87760 COMPLETE:12/16/20 01:51 DLA 20593 Reason(s): Trauma/Injury Transcribe Initials: SSR, Transcribe Date: 12/16/20 07:28, Dictation Date: Copy for: JOSE LUIS BRINK via fax Copy for: EMERGENCY DEPT via modem Copy for: 710 MED REC DISCHARGED Page 2 of 2 Name Value Range Interpretation Code Description Data Poonam rce(s) Supporting Document(s) ID Date Data Source [id number] 12/16/2020 07:40:00 [place] [address] PHONE: [phone] FAX: [phone] Name .................. : SHIVANI Lopez Acct Number.................. : [id number] ROOM. ................. : TR-08 MR Number ................... : [id number] Stay type ............. : E/R Discharge Date......... ... : 12/16/20 Admit Date ......... : 12/15/20 Admit Phys .................... : GEMMABRODERICK Date of ....... : 1970 Family Phys ................... : JOSE LUIS ROBLEDO Phone .................. : [phone] Age ................................ : 50 Film# .................. .:[id number] Sex ................................. : F Unsigned transcriptions are preliminary reports and do not represent a medical or legal document CT HEAD W/O CONTRAST 96140 COMPLETE:12/16/20 01:51 DLA 77434 Reason( s): Head Injury CT BRAIN WITHOUT IV CONTRAST INDICATION: Injury/trauma. Concussion head injury. COMPARISON: 09/17/20 CONTRAST: None Preliminary report for this exam was provided by [facility] . One or more of the following dose reduction techniques were utilized in effectively lowering the radiation dose for this examination: Automated Exposure Control, Adjustment of the mA and/or kV according to patient size, or Iterative Reconstruction. 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 [Piper white differentiation is intact. No extra-axial collection or intracranial hemorrhage. No indication of acute or prior ischemic CVA. No mass or mass effect. Calvarium and skull base are within normal limits. To the extent included sinuses are clear. Page 1 of 2 [facility] [address] [place] [address] PHONE: [phone] FAX: [phone] Name .................. : SHIVANI Lopez Acct Number.................. : [id number] ROOM. ................. : TR- 08 MR Number ................... : [id number] Stay type ............. : E/R Discharge Date......... ... : 12/16/20 Admit Date ......... : 12/15/20 Admit Phys .................... : COONEYNORM Date of ....... : 1970 Family Phys ................... : JOSE LUIS ROBLEDO Phone .................. : [phone] Age ................................ : 50 Film# .................. .:[id number] Sex ................................. 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 No acute intracranial traumatic abnormality or significant interval change. Electronically Reviewed and Signed By Ricci Perkins MD , 12/16/20 07:40, MAB Transcribe Initials: SSR, Transcribe Date: 12/16/20 07:27, Dictation Date: Copy for: JOSE LUIS BRINK via fax Copy for: EMERGENCY DEPT via modem Copy for: 710 MED REC DISCHARGED Page 2 of 2 Name Value Range Interpretation Code Description Data Poonam rce(s) Supporting Document(s) ID Date Data Source [id number] 12/16/2020 07:40:00 AM EDT [facility] [address] [place] [address] PHONE: [phone] FAX: [phone] Name .................. : SHIVANI Lopez Acct Number.................. : [id number] ROOM. ................. : TR-08 MR Number ................... : [id number] Stay type ............. : E/R Discharge Date......... ... : 12/16/20 Admit Date ......... : 12/15/20 Admit Phys .................... : COONEYNORM Date of ....... : 1970 Family Phys ................... : JOSE LUIS ROBLEDO Phone .................. : [phone] Age ................................ : 50 Film# .................. .:[id number] Sex ................................. : F Unsigned transcriptions are preliminary reports and do not represent a [place] [address] COMPLETE:12/16/20 01:51 DLA 79171 Reason(s): Trauma/Injury EXAM: Pelvis one view HISTORY: Trauma/injury. Fall. COMPARISON: 11/18/2013 hips FINDINGS: Symphysis and sacroiliac joints are intact. No pelvic ring fractures. No indication of hip fracture. IMPRESSION: No acute bony traumatic abnormality. Electronically Reviewed and Signed By Ricci Perkins MD , 12/16/20 07:40, SCB Transcribe Initials: SSR, Transcribe Date: 12/16/20 07:25, Dictation Date: Copy for: JOSE LUIS BRINK via fax Copy for: EMERGENCY DEPT via modem Copy for: 710 MED REC DISCHARGED Page 1 of 1 Name Value Range Interpretation Code Description Data Poonam rce(s) Supporting Document(s) ID Date Data Source [id number] 12/16/2020 07:40:00 AM EDT [facility] [address] [place] [address] PHONE: [phone] FAX: [phone] Name .................. : SHIVANI Lopez Acct Number.................. : [id number] ROOM. ................. : TR08 Number ................... : [id number] Stay type ............. : E/R Discharge Date......... ... : 12/16/20 Admit Date ......... : 12/15/20 Admit Phys .................... : COONEYNORM Date of ....... : 1970 Family Phys ................... : JOSE LUIS ROBLEDO Phone . ................. : [phone] Age ................................ : 50 Film# .................. .:[id number] Sex ................................. : F Unsigned transcriptions are preliminary reports and do not represent a medical or legal document CHEST PORTABLE 27539 COMPLETE:12/16/20 01:51 DLA 66838 Reason(s): Chest Pain PORTABLE CHEST SINGLE VIEW 12:09 AM HISTORY: Chest pain. Per technologist fall. COMPARISON: 03/08/2017. Interval CT 08/15/2018. FINDINGS: Mediastinal and hilar structures are normal. Cardiac silhouette is unremarkable. Lungs are clear. No pulmonary edema. No pleural effusions or pneumothorax. IMPRESSION: Normal exam. Electronically Reviewed and Signed By Ricci Perkins MD , 12/16/20 07:40, SCB Transcribe Initials: SSR, Transcribe Date: 12/16/20 07:24, Dictation Date: Copy for: JOSE LUIS BRINK via fax Copy for: EMERGENCY DEPT via modem Copy for: 710 MED REC DISCHARGED Page 1 of 1 Name Value Range Interpretation Code Description Data Poonam rce(s) Supporting Document(s) ID Date Data Source [id number] 12/15/2020 11:36:00 PM EDT [facility] 1 OrderSheet [facility] Emergency Department [address] [place] [address] Phone #: ext- [phone] 12/15/2020 23:35 Patient: LEAH BRYANT Sex: F : 1970 Age: 50yWEIGHT:62.5 kg (M) HEIGHT:62 inches (E) BMI:25.2ALLERGIES: NoneCHIEF COMPLAINT: fallDIAGNOSIS: Contusion, FallLAB ORDERSOrder Description Priority Entered Acknowledged InitialedCBC wo Diff STAT 23:45 12/15/2020 00:06 12/16/2020 Mihaela Menendez MD; Stephanie Urbina R.N.CMP STAT 23:45 12/15/2020 00:06 12/16/2020 Mihaela Menendez MD; Stephanie Urbina R.N.Urinalysis (Clean STAT 23:45 12/15/2020 Ack'd: 00:06 00:16 12/16/2020atch) Mihaela Menendez MD; 12/16/2020 Cele Marte Laura R.N.Troponin-T STAT 23:45 12/15/2020 00:06 12/16/2020 Mihaela Menendez MD; Stephanie Urbina R.N.TSH STAT 23:45 12/15/2020 00:06 12/16/2020 Mihaela Menendez MD; Stephanie Urbina R.N.Magnesium STAT 23:45 12/15/2020 00:06 12/16/2020 Mihaela Menendez MD; Stephanie Urbina R.N.DIAGNOSTIC STUDY ORDERSOrder Description Priority Entered Acknowledged InitialedCT Head W/O Cont STAT 23:45 12/15/2020 Ack'd: 00:06 01:42 12/16/2020(Oxygen?(No)) Mihaela Menendez MD; 12/16/2020 Stephanie Urbina Laura R.N. R.NSylvester Reason for Study: Head InjuryCT Spine Cervical STAT 23:45 12/15/2020 Ack'd: 00:06 01:42 12/16/2020W/O Cont Mihaela Menendez MD; 12/16/2020 Stephanie Urbina 2 OrderSheet [facility] Emergency Department [address] [place] [address] Phone #: ext- [phone] 12/15/2020 23:35 Patient: LEAH BRYANT [facility]#: [id number] Sex: F : 1970 Age: 50y(Oxygen?(No)) Stephanie Urbina R.N. RSylvesterNSylvester Reason for Study: Trauma/InjuryChest Portable 1 STAT 23:45 12/15/2020 23:54 Daniel Urbina Norma MD; Stephanie Abraham(Oxygen?(No)) Reason for Study: Chest Pain, TraumaPelvis 1 View STAT 23:45 12/15/2020 00:06 12/16/2020(Oxygen?(No)) Mihaela Menendez MD; Stephanie Urbina R.N. Reason for Study: Trauma/InjuryMEDICATION/IV/DRIP/FLUID ORDERSOrder Description Priority Entered Acknowledged InitialedAtivan IM 2 mg 00:32 12/16/2020 Ack'd: 00:34 00:41 Carlitos,(NOW x1, HIGH Mihaela Menednez MD; Stephanie Urbina R.N.ALERT R.N.MEDICATION)Zofran IVP 4 mg 01:20 12/16/2020 01:41 Gemma Urbina Norma MD; Stephanie BettencourtNSylvesterKetamine IVP 100 01:20 12/16/2020 01:42 Carlitosmg (NOW x1, HIGH Mihaela Menendez MD; Stephanie R.NSylvesterALERTMEDICATION)GENERAL ORDERSOrder Description Priority Entered Acknowledged InitialedEKG 23:45 12/15/2020 23:54 Gemma Urbina Norma MD; Stephanie BettencourtN Sylvester[Electronically signed by Mihaela Menendez MD (05:43 12/16/2020)][Electronically signed by Stephanie Urbina R.N. (05:53 12/16/2020)][Electronically locked by Stephanie Urbina R.N. (05:53 12/16/2020)] Name Value Range Interpretation Code Description Data Poonam rce(s) Supporting Document(s) ID Date Data Source [id number] 12/15/2020 11:36:00 PM EDT [facility] 1 Medication Reconciliation Report [facility] Emergency Department [address] [place] [address] Phone #: ext- [phone] 12/15/2020 23:35 Patient: LEAH BRYANT Sex: F : 1970 Age: 50yWeight: 62.5 kgHeight/Length: 62 in.BMI: 25.2ALLERGIES: NoneThe patient's Home Medications are listed below:CONTINUE TAKING THE FOLLOWING MEDICATIONS: Acetaminophen Oral (325 mg) 2 tablets, prn Baclofen 20mg in am and noon, 2 in pm Colace Oral (100 mg) 2 capsules, at bedtime Cymbalta Oral (60 mg) 2 capsules, daily Debrox Otic (6.5 %) 2 drops, monthly Enema Rectal, prn Fexofenadine HCl Oral 180 mg, daily FiberCon Oral (625 mg) 1 tablet, 2x a day Folic Acid Oral 1 mg, daily guaiFENesin Oral (100 mg/5mL), prn Ibuprofen Oral (200 mg), prn Lactulose Oral (10 gm/15mL) 30ml, daily Linzess Oral (145 mcg), daily LORazepam Oral (1 mg), 2 MG IN AM AND 1 MG AT 1200 Omeprazole Oral (40 mg), daily 2 Medication Reconciliation Report [facility] Emergency Department [address] [place] [address] Phone #: ext- [phone] 12/15/2020 23:35 Patient: LEAH BRYANT Sex: F : 1970 Age: 50y Singulair Oral 10 mg, daily Synthroid Oral (112 mcg), daily Topamax Oral 200 mg, 2x a day Tramadol HCL Oral 300mg, dailyThe source(s) of the original Home Medication information:Not obtained.The following Medications were given to the patient in the Emergency Department:Ativan [IM] IM 2 mg, administered: 00:41 12/16/2020Zofran [IVP] IVP 4 mg, administered: :12/16/2020Ketamine [IVP] IVP 100 mg, administered: :12/16/2020The following Medications were prescri bed to the patient:None. Name Value Range Interpretation Code Description Data Poonam rce(s) Supporting Document(s) ID Date Data Source [id number] 12/15/2020 11:36:00 PM EDT [facility] 1 Medication Administration Record [facility] Emergency Department [address] [place] [address] Phone #: ext- [phone] 12/15/2020 23:35 Patient: LEAH BRYANT Sex: F : 1970 Age: 50yWeight: 62.5 kgHeight/Length: 62 inBMI: 25.2ALLERGIES: None Date/Time Medication Administered Medication OrderedGiven ATIVAN [IM] (LORAZEPAM) Ativan IM 2 mg (NOW x1, HIGH00:41 12/16/2020 Dose: 2 mg IM ALERT MEDICATION)Stephanie Urbina RKiloGiven ZOFRAN [IVP] (ONDANSETRON HCL) Zofran IVP 4 mg01:12/16/2020 Dose: 4 mg IVPMStephanie chavez R.N. Site: #1 right ACGiven KETAMINE [IVP] Ketamine IVP 100 mg (NOW x1,01:28 12/16/2020 Dose: 100 mg IVP HIGH ALERT MEDICATION)Stephanie Urbina R.N. Site: #1 right AC Name Value Range Interpretation Code Description Data Poonam rce(s) Supporting Document(s) ID Date Data Source [id number] 12/15/2020 11:36:00 PM EDT [facility] 1 General Instructions [facility] Emergency Department [address] [place] [address] Phone #: ext- [phone] 12/15/2020 23:35 Patient: LEAH BRYANT Sex: F : 1970 Age: 50ySingle contusion to the scalp.Fall.INSTRUCTIONS(fall precautions. take all medications as previously instructed.).Warnings: GENERAL WARNINGS: Return or contact your physician immediately if your conditionworsens or changes unexpectedly, if not improving as expected, or if other problems arise.Your Current Medications: Your current home medications have been reviewed.CONTINUE TAKING THE FOLLOWING MEDICATIONS:Acetaminophen Oral : Tablet 325 mg, 2 tablets, prn.Baclofen* : 20mg in am and noon, 2 in pm.Colace Oral : Capsule 100 mg, 2 capsules, at bedtime.Cymbalta Oral : Capsule Delayed Release Particles 60 mg, 2 capsules daily.Debrox Otic : Solution 6.5 %, 2 drops monthl y.Enema Rectal : prn.Fexofenadine HCl Oral : 180 mg daily.FiberCon Oral : Tablet 625 mg, 1 tablet 2x a day.Folic Acid Oral : 1 mg daily.guaiFENesin Oral : Solution 100 mg/5mL, prn.Ibuprofen Oral : Tablet 200 mg, prn.Lactulose Oral : Solution 10 gm/15mL, 30ml daily.Linzess Oral : Capsule 145 mcg, daily.LORazepam Oral : Tablet 1 mg, 2 MG IN AM AND 1 MG AT 1200.Omeprazole Oral : Capsule Delayed Release 40 mg, daily.Singulair Oral : 10 mg daily.Synthroid Oral : Tablet 112 mcg, daily.Topamax Oral : 200 mg 2x a day.Tramadol HCL Oral : 300mg daily.Follow-up:Follow up with your doctor tomorrow even if well. Call for an appointment. Reason for referral: evaluation.Summary of care provided to patient via paper.Understanding of the discharge instructions verbalized. Discharge instructions reviewed. ([place]). 2 [facility] Emergency Department [address] [place] [address] Phone #: ext- [phone] 12/15/2020 23:35 Patient: LEAH BRYANT Sex: F : 1970 Age: 50y ADDITIONAL INFORMATIONSoft Tissue Bruise (Contusion)You have a bruise (contusion). There is swelling and some bleeding under the skin. Thisinjury generally takes a few days to a few weeks to heal. During that time, the bruise will typicallychange in color from reddish, to purple-blue, to greenish-yellow, then to yellow-brown.Home care Elevate the injured area to reduce pain and swelling. As much as possible, sit or lie down with the injured area raised about the level of your heart. This is especially important during the first 48 hours. Ice the injured area to help reduce pain and swelling. Wrap an ice pack in a thin towel. Apply to the bruised area for 20 minutes every 1 to 2 hours the first day. Continue this 3 to 4 times a day until the pain and swelling goes away. You can make an ice pack by placing ice cubes in a plastic bag. Unless another medicine was prescribed, you can take acetaminophen, ibuprofen, or naproxen to control pain. Talk with your doctor before using these medicines if you have chronic liver or kidney disease or ever had a stomach ulcer or digestive bleeding.Follow-up careFollow up with your healthcare provider, or as advised. Call if you are not better in 1 to 2 weeks.When to seek medical adviceCall your healthcare provider right away if you have any of the following: Increased pain or swelling Bruise is on an arm or leg and arm or leg becomes cold, blue, numb or tingly Signs of infection: Warmth, drainage, or increased redness or pain around the contusion Inability to move the injured area or body part Bruise is near your eye and you have problems with your eyesight or eye Frequent bruising for unknown reasons [id number] [employer]. [address] [place] [address], [place] [address]. All rights reserved. This information is not intended as asubstitute for professional medical care. Always follow your healthcare professional's instructions. 3 General Instructions [facility] Emergency Department [address] [place] [address] Phone #: ext- [phone] 12/15/2020 23:35 Patient: LEAH BRYANT Sex: F : 1970 Age: 50yMechanical FallYou have had a fall today. It appears that the cause is what is called mechanical. That means thatyou slipped, tripped, or lost your balance. If your fall had been because of fainting or a seizure, youmight need other tests.It is normal to feel sore and tight in your muscles and back the next day, and not just the muscles youinjured at first. Remember, all the parts of your body are connected, so while initially one area hurts,the next day another may hurt. Also, when you injure yourself, it causes inflammation, which thencauses the muscles to tighten up and hurt more. After the initial worsening, it should graduallyimprove over the next few days. Do report more severe pain.Even without a definite head injury, you can still get a concussion from your head suddenly jerkingforward, backward, or sideways when falling. Concussions and even bleeding can still happen,especially if you have had a recent injury or take blood thinner medicine. It is not unusual to have amild headache and feel tired and even nauseous or dizzy.Home care Rest today and go back to your normal activities when you are feeling back to normal. If you were injured during the fall, follow the advice from your healthcare provider regarding care of your injury. At first, do not try to stretch out the sore spots. If there is a strain, stretching may make it worse. Massage may help relax the muscles without stretching them. You can use an ice pack or cold compress on and off to the sore spots 10 to 20 minutes at a time, as often as you feel comfortable. This may help reduce the inflammation, swelling and pain. If you have any scrapes or abrasions, they usually heal within 10 days. It is important to keep the abrasions clean while they initially start to heal. However, an infection may happen even with proper care, so watch for early signs of infection (such as warmth, redness, or swelling).Medicines Talk to your healthcare provider before taking new medicines, especially if you have other medical problems or are taking other medicines. If you need anything for pain, you can take acetaminophen or ibuprofen, unless you were given a different pain medicine to use. Talk with your healthcare provider before using these medicines if you have chronic liver or kidney disease, or ever had a stomach ulcer or gastrointestinal bleeding, or are taking blood thinner medicines. 4 General Instructions [facility] Emergency Department [address] [place] [address] Phone #: ext- [phone] 12/15/2020 23:35 Patient: LEAH BRYANT Sex: F : 1970 Age: 50y Be careful if you are given prescription pain medicines, narcotics, or medicine for muscle spasm. They can make you sleepy and dizzy, and can affect your coordination, reflexes, and judgment. Do not drive or do work where you can injure yourself when taking them.Fall prevention Fix, remove, or replace anything that caused your fall. Make your home safe by keeping walkways clear of objects you may trip over. Use nonslip pads under rugs. Don't use small area rugs or throw rugs. Don't walk in poorly lit areas. Don't stand on chairs or wobbly ladders. Use caution when reaching overhead or looking upward. This position can cause a loss of balance. Be sure your shoes fit properly, have nonslip bottoms and are in good condition. Be cautious when going up and down curbs, and walking on uneven sidewalks. If your balance is poor, consider using a cane or walker. Stay as active as you can. Balance, flexibility, strength, and endurance all come from exercise. They all play a role in preventing falls. If you have pets, know where they are before you stand up or walk so you don't trip over them. Limit alcohol intake. Alcohol can cause balance problems and increase the risk of falls. Use night lights. Have your eyes tested to be sure you are seeing well, even if you already wear glasses.Follow-upFollow up with your healthcare provider, or as advised. If X-rays or CT scans were done, you will benotified if there is a change in the reading, especially if it affects treatment.Call [phone] if any of these happen: Trouble breathing Confused or difficulty arousing 5 General Instructions [facility] Emergency Department [address] [place] [address] Phone #: ext- [phone] 12/15/2020 23:35 [id number] Sex[facility] F : 1970 Age: 50y Fainting or loss of consciousness Rapid or very slow heart rate Seizure Difficulty with speech or vision, weakness of an arm or leg Difficulty walking or talking, loss of balance, numbness or weakness in one side of your body, or facial droopWhen to seek medical adviceCall your healthcare provider right away if any of these happen: Repeated mechanical falls, or unexplained falls Dizziness Severe headache Blood in vomit, stools (black or red color) [id number] [employer]. [address] [place] [address]. All rights reserved. This information is not intended as asubstitute for professional medical care. Always follow your healthcare professional's instructions. You have been given the following additional information: Soft Tissue Contusion Mechanical Fall(Electronically signed by Mihaela Menendez MD 12/16/2020 05:43) Name Value Range Interpretation Code Description Data Poonam rce(s) Supporting Document(s) ID Date Data Source [id number] 12/15/2020 11:36:00 PM EDT [facility] 1 Clinical Report - Nurses [facility] Emergency Department [address] [place] [address] Phone #: ext- [phone] 12/15/2020 23:35 Patient: LEAH BRYANT Sex: F : 1970 Age: 50yTRIAGE Arrived by EMS. Historian: patient. Acuity: LEVEL 3. Chief Complaint: FALL: Alert. No acute distress. ( Patient arrives from [facility] c/o fall. Per ems staff reported fall was from standing height. Per staff at ems reports pt has been acting "off" from the past couple of days. EMS reporting bump to right sided head. Pt is A.). Treatment PROFESSIONAL CASTER: None. --23:40 12/15/20 Stephanie Urbina R.N. 23:37 12/15/20. BP: 116/87. MAP: 96. HR: 107. RR: 17. O2 saturation: 97% on room air. Temp: 98.5 F. Pain level now: 0/10. --23:40 12/15/20 Stephanie Urbina R.N. Weight: 62.5 kg measured. Height/Length: 62 inches Estimated. BMI: 25.2. --23:37 12/15/20 Melaragno, Stephanie, R.N. Medications Acetaminophen Oral (Tablet 325 mg) 2 tablets, as needed. Baclofen 20mg in am and noon, 2 in pm. Colace Oral (Capsule 100 mg) 2 capsules, at bedtime. Cymbalta Oral (Capsule Delayed Release Particles 60 mg) 2 capsules, daily. --23:38 12/15/20 Stephanie Urbina R.N. Debrox Otic (Solution 6.5 %) 2 drops, monthly. Enema Rectal, as needed. Fexofenadine HCl Oral 180 mg, daily. FiberCon Oral (Tablet 625 mg) 1 tablet, 2x a day. Folic Acid Oral 1 mg, daily. guaiFENesin Oral (Solution 100 mg/5mL), as needed. Ibuprofen Oral (Tablet 200 mg), as needed. Lactulose Oral (Solution 10 gm/15mL) 30ml, daily. Linzess Oral (Capsule 145 mcg), daily. LORazepam Oral (Tablet 1 mg) (2 MG IN AM AND 1 MG AT 1200). Omeprazole Oral (Capsule Delayed Release 40 mg), daily. Singulair Oral 10 mg, daily. Synthroid Oral (Tablet 112 mcg), daily. Topamax Oral 200 mg, 2x a day. 2 Clinical Report - Nurses [facility] Emergency Department [address] [place] [address] Phone #: ext- [phone] 12/15/2020 23:35 Patient: LEAH BRYANT [facility]#: [id number] Sex: F : 1970 Age: 50yTramadol HCL Oral 300mg, daily. --23:38 12/15/20 Stephanie Urbina R.N.AllergiesNone. --23:38 12/15/20 Stephanie Urbina R.N.PROBLEMS:Hard hearing.Depression.Moderate intellectual disability.Constipation.Sprain.Sinus Tachycardia.Pneumonia.Hypothyroidism.UTI - Urinary Tract Infection. --23:39 12/15/20 Stephanie Urbina R.N.Constipation: RuleOut.Pneumonia: RuleOut.Palpitations: RuleOut.Abdominal Pain: RuleOut.Sinus Tachycardia: RuleOut. --23:39 12/15/20 Stephanie Urbina R.N.ADDITIONAL SURGERIES:Knee Surgery (Left knee). --23:39 12/15/20 Stephanie Urbina R.N.HistoryPAST MEDICAL HX: Immu nizations: up-to-date.SOCIAL HX: Never smoker. No alcohol use or drug use. She has not traveled outside the [place]Infectious disease exposure: No infectious disease exposure. The patient was not exposed to Coronavirus.Patient is not a known carrier of tuberculosis, hepatitis, HIV, MRSA or VRE. Patient is not a known carrierof CRE.ABUSE ASSESSMENT: Abuse assessment. The patient had positive responses to the question(s) "Do youfeel safe in your home?", "Are you afraid to go home?", "Has anyone hurt you or threatened to hurt you?","Are you afraid of your partner?" and "Have children witnessed violence in the home?". Abuse denied.NUTRITIONAL RISK ASSESSMENT: The nutritional risk assessment revealed no deficiencies.FUNCTIONAL ASSESSMENT: Functional assessment: no impairments noted.LEARNING NEEDS ASSESSMENT: The learning needs assessment revealed no barriers.FALL RISK ASSESSMENT: Fall risk assessment completed. Risk factors identified include patient historyof fall. Fall interventions initiated. Patient placed on stretcher. Side rails up x2. Bed in low position. Brakes 3 Clinical Report - Nurses [facility] Emergency Department [address] [place] [address] Phone #: ext- [phone] 12/15/2020 23:35 Patient: LEAH BRYANT MRN: [id number] Sex: F : 1970 Age: 50y on. Patient visible from nurses' station and identified as a fall risk. Call light in reach of patient. Verbalizes understanding. SKIN INTEGRITY ASSESSMENT: Skin integrity risk assessment completed. No skin integrity risk identified. --23:40 12/15/20 Stephanie Urbina R.N. ABUSE ASSESSMENT: Abuse assessment: unable to obtain due to patient condition. No suspicion of abuse. --23:42 12/15/20 Stephanie Urbina R.N. SELF HARM ASSESSMENT: Self harm assessment unable to obtain due to patient condition. --23:42 12/15/20 Stephanie Urbina R.N. Interventions Identification band on patient. To treatment room. --23:40 12/15/20 Stephanie Urbina R.N.PHYSICAL ASSESSMENT To room via stretcher. Patient gowned. GENERAL / NEURO / PSYCH: Alert. Oriented X 4. Appears in no acute distress. HEENT: Pupils equal, round and reactive to light. Head: tenderness present in the right occipital area. ( bump ti right occipital). RESPIRATORY: Respirations not labored. Chest nontender. Breath sounds within normal limits. CVS: Normal heart rate and rhythm. Pulses within normal limits. Capillary refill less than 2 seconds. GI / : Abdomen soft and nontender. EXTREMITIES: Extremities exhibit normal ROM. Neuro-vascular status intact to the extremity. SKIN: Skin intact. Skin is warm and dry. --23:41 12/15/20 Stephanie Urbina R.N.NURSING PROGRESS NOTES Neuro-vascular extremity check. Patient gowned. Reassurance given. Two patient identifiers checked. Call light placed in reach. Side rails up x 2. Bed placed in lowest position. Brakes of bed on. --23:40 12/15/20 Stephanie Urbina R.N. EKG time: (late entry - 23:47 12/15/2020). EKG was performed by a nurse and shown to the ED physician. --23:54 12/15/20 Stephanie Urbina R.N. 00:07 12/16/2020 Site #1 started via IV in the right antecubital space with an 20g angiocath, with aseptic technique; one attempt. Blood drawn: rainbow set. Sent to the lab. Saline lock flushed with 10 mL saline. --00:17 12/16/20 Stephanie Urbina R.N. 00:41 12/16/2020 Ativan (LORazepam) IM 2 mg given. Given in the left ventral gluteus. Allergies verified and confirmed 5 rights. Information reviewed with patient including sedative warning. Verbalizes understanding. --00:41 12/16/20 Stephanie Urbina R.N. ( Dina, air crew supervisor from came over to stay with patient. Pt yelling out and agitated. Pt medicated per JUN for CT scan.). --00:42 12/16/20 Stephanie Urbina R.N. 4 Clinical Report - Nurses [facility] Emergency Department [address] [place] [address] Phone #: ext- [phone] 12/15/2020 23:35 Patient: LEAH BRYANT Sex: F : 1970 Age: 50y( This RN went to CT with patient. Pt unable to lay head back and stay still long enough to get CT done. Ptbrought back to room. MD Menendez made aware, pt to be medicated per JUN.). --01:20 12/16/20Stephanie Urbina R.N.01:12/16/2020 Zofran (Ondansetron HCl) IVP 4 mg given via site #1. Allergies verified and confirmed 5rights. IV patency established. IV site checked: no pain, redness, or swelling. IV flushed thoroughly pre-and post-medication administration. IVP given by RN. Information reviewed with patient. Verbalizesunderstanding. --01:41 12/16/20 Stephanie Urbina R.N.01:12/16/2020 Ketamine IVP 100 mg given over 5 minute(s) via site #1. Allergies verified and confirmed5 rights. IV patency established. IV site checked: no pain, redness, or swelling. IV flushed thoroughly pre-and post- medication administration. IVP given by physician. Information reviewed with patient includingsedative warning. Verbalizes understanding (Pushed by MD Menendez). --01:42 12/16/20 Stephanie Urbina R.N.Patient returned from CT by stretcher with nurse and radiology specialist. --01:42 12/16/20 Stephanie Urbina R.N.01:42 12/16/20. HR: 105. RR: 20. O2 saturation: 93% on room air. --01:42 12/16/20 Stephanie Urbina R.N.The patient is sleeping. ( Dina air crew supervisor from remains at bedside.). --02:12/16/20 Stephanie Urbina R.N.02:12/16/20. BP: 93/60. MAP: 71. HR: 97. RR: 16. O2 saturation: 97% on room air. Pain level now:0/10. --02:31 12/16/20 Stephanie Urbina R.N.( See chart for paper on restraint documentation.). --03:18 12/16/20 Stephanie Urbina R.N.The patient is sleeping. --05:28 12/16/20 Stephanie Urbina R.N.05:28 12/16/20. BP: 106/73. MAP: 84. HR: 97. RR: 16. O2 saturation: 98% on room air. Pain level now:0/10. --05:28 12/16/20 Stephanie Urbina R.N.Restraint Flowsheetlate entry - 00:41 12/16/20. Initial restraint assessment. 1 hour face to face restraint assessment. Shehas demonstrated non-violent behavior including agitation, fall risk, inability to follow directions and pullingat IV lines that requires restraints. Alternatives to restraints have been attempted via patient teaching,provision of supervision by a sitter and 1:1 observation, modifications to environment by decreasing thesurrounding stimulus, repositioning, moving the patient close to the nursing station and use of an electronicmonitor, reality orientation by frequent reminding and redirection of behavior, diversional activities includingTV and comfort measures. Alternative to restraints failed: patient inability to follow directions and remainsagitated. Restraint education was given to the patient. Chemical restraints- see medication section. 5 Clinical Report - Nurses [facility] Emergency Department [address] [place] [address] Phone #: ext- [phone] 12/15/2020 23:35 Patient: LEAH BRYANT Sex: F : 1970 Age: 50y (chemical, see MAR). Observed 1:1. Assessment: airway- patent; circulation- capillary refill is less than 2 seconds; mental status- patient is agitated; skin- intact, warm and color is within normal limits; indwelling lines / tubes- performing without impedence of flow; behavior is self destructive. Interventions: emotional support offered; call light within reach. --03:17 12/16/20 Stephanie Urbina R.N. late entry - 00:41 12/16/20. Assessment. (see vickie eden for paper on restraint documentation). --03:18 12/16/20 Stephanie Urbina R.N.DISPOSITION / DISCHARGE ( Report given to Dina, air crew supervisor at . Awaiting ambulance to bring pt back at this time.). --05:29 12/16/20 Stephanie Urbina R.N. 05:46 12/16/2020 Site #1 removed upon discharge. Bandage applied. --05:52 12/16/20 Stephanie Urbina R.N. Condition at departure: stable. Ability to learn limited by intellectual disability. Written instructions provided in Tajik. ( Report given to Dina). The patient was discharged by the physician. She was discharged home and accompanied by ems. She left via ambulance and on a stretcher. Driving (ems). Transported via ambulance by transport team with mask. --05:52 12/16/20 Stephanie Urbina R.N. 05:53 12/16/20. BP: 106/73. MAP: 84. HR: 95. RR: 16. O2 saturation: 97% on room air. Temp: 97.9 F. Pain level now: 0/10. --05:53 12/16/20 Stephanie Urbina R.N.Locked/Released at 12/16/2020 05:53 by Stephanie Urbina R.N. Name Value Range Interpretation Code Description Data Poonam rce(s) Supporting Document(s) ID Date Data Source [id number] 12/15/2020 11:36:00 PM EDT [facility] 1 Clinical Report - Physicians/Mid Levels [facility] Emergency Department [address] [place] [address] Phone #: ext- [phone] 12/15/2020 23:35 Patient: LEAH BRYANT Sex: F : 1970 Age: 50y Arrived- By ambulance. Historian- EMS personnel. Disposition decision: 05:29 12/16/2020.HISTORY OF PRESENT ILLNESS Chief Complaint: FALL: Location of injuries- head. The injury occurred just prior to arrival. ([facility]). Fell: The patient complains of mild pain.REVIEW OF SYSTEMSNo chest pain, difficulty breathing, weakness, laceration or fever. No vomiting. She has had a headache.PAST HISTORYSee nurses notes. Problems: Moderate intellectual disability. Additional Surgeries: Knee Surgery. (Left knee ). Medications: Debrox Otic (Solution 6.5 %) 2 drops, monthly. Enema Rectal, as needed. Fexofenadine HCl Oral 180 mg, daily. FiberCon Oral (Tablet 625 mg) 1 tablet, 2x a day. Folic Acid Oral 1 mg, daily. guaiFENesin Oral (Solution 100 mg/5mL), as needed. Ibuprofen Oral (Tablet 200 mg), as needed. Lactulose Oral (Solution 10 gm/15mL) 30ml, daily. Linzess Oral (Capsule 145 mcg), daily. LORazepam Oral (Tablet 1 mg) (2 MG IN AM AND 1 MG AT 1200). Omeprazole Oral (Capsule Delayed Release 40 mg), daily. Singulair Oral 10 mg, daily. Synthroid Oral (Tablet 112 mcg), daily. Topamax Oral 200 mg, 2x a day. Tramadol HCL Oral 300mg, daily. Acetaminophen Oral (Tablet 325 mg) 2 tablets, as needed. 2 Clinical Report - Physicians/Mid Levels [facility] Emergency Department [address] [place] [address] Phone #: ext- [phone] 12/15/2020 23:35 Patient: LEAH BRYANT Sex: F : 1970 Age: 50y Baclofen 20mg in am and noon, 2 in pm. Colace Oral (Capsule 100 mg) 2 capsules, at bedtime. Cymbalta Oral (Capsule Delayed Release Particles 60 mg) 2 capsules, daily. Allergies: None.SOCIAL HISTORYNo drug use.PHYSICAL EXAMAppearance: Alert.Head: Right parietal area: mild tenderness and swelling.Eyes: Pupils equal, round and reactive to light. EOM intact.ENT: Pharynx normal.Neck: Painless ROM. Non-tender.CVS: Heart sounds normal. Pulses normal.Respiratory: Painless inspiration. Breath sounds normal. Chest nontender.Abdomen: No visible injury. Soft and nontender. Bowel sounds normal.Back: No tenderness. ROM normal.Skin: Skin intact. Skin warm and dry. Normal skin color. Normal skin turgor.Extremities: Normal inspection. Pelvis stable. Extremities atraumatic.Neuro: No motor deficit.LABS, X-RAYS, AND EKGLaboratory Tests: CBC wo Diff: (LAKEISHA: 12/16/2020 00:05) ( MsgRcvd 12/16/2020 00:13) Final results Test Result Flag Units (Reference) CBC NO DIFF COMPLETE BLOOD COUNT WBC 7.4 10/uL (4.2 - 11.0) RBC 3.68 L 10/uL (4.20 - 5.40) HEMOGLOBIN 11.0 L g/dL (12.0 - 16.0) HEMATOCRIT 34.1 L % (37.0 - 47.0) MCV 92.7 fL (81.0 - 101) MCH 29.9 pg (27.0 - 34.0) MCHC 32.3 g/dL (31.0 - 36.0) RDW 14.5 % (11.5 - 14.5) PLATELETS 232 10/uL (150 - 450) MPV 11.5 H fL (7.4 - 10.4) CMP: (LAKEISHA: 12/16/2020 00:05) ( MsgRcvd 12/16/2020 00:49) Final results Test Result Flag Units (Reference) COMPREHENSIVE METABOLIC PANEL COMPREHENSIVE METABOLIC PANEL SODIUM 140 mEq/L (134 - 153) POTASSIUM 3.7 mEq/L (3.6 - 5.0) CHLORIDE 104 mEq/L (98 - 107) CO2 26 MEQ/L (22 - 30) 3 Clinical Report - Physici ans/Mid Levels [facility] Emergency Department [address] [place] [address] Phone #: ext- [phone] 12/15/2020 23:35 Patient: LEAH BRYANT Sex: F : 1970 Age: 50y GLUCOSE 106 H MG/DL (70 - 99) BUN 15 MG/DL (7 - 21) CREATININE 0.5 L MG/DL (0.7 - 1.5) BUN/CREAT 30 H (8 - 27) TOTAL PROTEIN 7.8 G/DL (6.3 - 8.2) ALBUMIN 4.0 G/DL (3.9 - 5.0) GLOBULIN 3.8 H GM/DL (2.4 - 3.2) A/G RATIO 1.1 (0.8 - 2.0) CALCIUM 10.1 MG/DL (8.4 - 10.2) TOTAL BILI <0.7 MG/DL (0.2 - 1.3) ALKALINE PHOS 160 H U/L (38 - 126) SGOT/AST 94 H U/L (5 - 40) SGPT/ALT 80 H U/L (7 - 56) ANION GAP 10.0 mmol/L (8.0 - 16.0) AGE 50 yrs NON-AA GFR >60 mL/min AFR AMER GFR >60 mL/min Male GFR Interprentation 20-49 yrs >60 mL/min Iosvvp64-58 yrs >56 mL/min Normal 60-69 yrs >49 mL/min Normal 70-79yrs>42 mL/min Normal 80 and above >35 mL/min Normal Female GFRInterpretation 20-39 yrs >60 mL/min Normal 40-49 yrs >58 mL/minNormal 50-59 yrs >51 mL/min Normal 60-69 yrs >45 mL/min Qbptwd33-79 yrs >39 mL/min Normal 80 and above >32 mL/min NormalUrinalysis: (LAKEISHA: 12/16/2020 00:15) ( MsgRcvd 12/16/2020 00:41) Final results Test Result Flag Units (Reference) URINALYSIS URINALYSIS SOURCE R COLOR yellow (NORMAL: Yello CLARITY turbid (NORMAL: Clear SPEC GRAVITY 1.010 (1.001 - 1.030 pH 7 (5 - 9) GLUCOSE NORM (NORMAL: Negat BILIRUBIN NEG (NORMAL: Negat KETONE NEG (NORMAL: Negat PROTEIN NEG (NORMAL: Negat NITRITE POS (NORMAL: Negat BLOOD 10 A (NORMAL: Negat LEUK EST 25 (NORMAL: Negat UROBILINOGEN NOR (less than 1.0 MICROSCOPIC See Below WBC 3 - 5 (NORMAL: NONE RBC 1 - 3 (NORMAL: NONE EPITHELIAL MODERATE A (NORMAL: NONE BACTERIA 2+ MOD A (NORMAL: NONE MUCOUS 1+ (NORMAL: NONE AMORPH SED 3+ (NORMAL: NONETroponin-T: (LAKEISHA: 12/16/2020 00:05) ( MsgRcvd 12/16/2020 00:27) Final results Test Result Flag Units (Reference) TROPONIN T <0.01 NG/ML (0.00 - 0.10) TROPONIN T0.1 ng/ml Recommended as the clinical threshold value forTroponin T.TSH: (LAKEISHA: 12/16/2020 00:05) ( [facility]) Final results Test Result Flag Units (Reference) 4 Clinical Report - Physicians/Mid Levels [facility] Emergency Department [address] [place] [address] Phone #: ext- [phone] 12/15/2020 23:35 Patient: LEAH BRYANT Sex: F : 1970 Age: 50y TSH 2.01 uIU/mL (0.47 - 5.01) Magnesium: (LAKEISHA: 12/16/2020 00:05) ( [facility] 12/16/2020 00:37) Final results Test Result Flag U nits (Reference) MAGNESIUM 1.8 MG/DL (1.7 - 2.2) CT Head W/O Cont: (LAKEISHA: 12/15/2020 23:45) ( [facility] [place] 12/16/2020 01:51) In Progress CT HEAD W/O CONTRAST Reason(s): Head Injury TRANSPORTATION: S IV? O2? Oxygen?(No) Room: ED CT Spine Cervical W/O Cont: (LAKEISHA: 12/15/2020 23:45) ( [facility] [place] 12/16/2020 01:51) In Progress CT CERV SPINE W/O CONTRAS Reason(s): Trauma/Injury TRANSPORTATION: S IV? O2? Oxygen?(No) Room: ED Chest Portable 1 View: (LAKEISHA: 12/15/2020 23:45) ( MsgRcvd 12/16/2020 01:51) In Progress CHEST PORTABLE Reason(s): Chest Pain TRANSPORTATION: P IV? O2? Oxygen?(No) Room: ED Pelvis 1 View: (LAKEISHA: 12/15/2020 23:45) ( MsgRcvd 12/16/2020 01:51) In Progress PELVIS AP Reason(s): Trauma/Injury TRANSPORTATION: P IV? O2? Oxygen?(No) Room: ED.PROGRESS AND PROCEDURESCourse of Care: pt had a mechanical fall. she had a soft tissue injury to right parietal scalp. pt wasgiven ketamine as an anxiolytic so procedure of CT may be done to r/o any intracranial pathology due tothe fall. Pt did exceptionally well and no issues. ct head and cspine showed no acute findings. labsreviewed and no acute findings. labs grossly nl. ua shows no evidence of infection. will discharge backto [place] home. pt to f/u with pcp tomorrow. Critical care performed (45 minutes). Time is exclusive of separately billable procedures. Time includes: direct patient care, patient reassessment, interpretation of data (laboratory data and chest xrays) and medical consultation. Procedures included in critical care time: peripheral IV placement. Patient/family counseled. Disposition: Discharged. Condition: good and stable.CLINICAL IMPRESSION Single contusion to the scalp. 5 Clinical Report - Physicians/Mid Levels [facility] Emergency Department [address] [place] [address] Phone #: ext- [phone] 12/15/2020 23:35 [id number] Sex: F : 1970 Age: 50y Fall.INSTRUCTIONS (fall precautions. take all medications as previously instructed.). Warnings: GENERAL WARNINGS: Return or contact your physician immediately if your condition worsens or changes unexpectedly, if not improving as expected, or if other problems arise. Your Current Medications: Your current home medications have been reviewed. CONTINUE TAKING THE FOLLOWING MEDICATIONS: Acetaminophen Oral : Tablet 325 mg, 2 tablets, prn. Baclofen* : 20mg in am and noon, 2 in pm. Colace Oral : Capsule 100 mg, 2 capsules, at bedtime. Cymbalta Oral : Capsule Delayed Release Particles 60 mg, 2 capsules daily. Debrox Otic : Solution 6.5 %, 2 drops monthly. Enema Rectal : prn. Fexofenadine HCl Oral : 180 mg daily. FiberCon Oral : Tablet 625 mg, 1 tablet 2x a day. Folic Acid Oral : 1 mg daily. guaiFENesin Oral : Solution 100 mg/5mL, prn. Ibuprofen Oral : Tablet 200 mg, prn. Lactulose Oral : Solution 10 gm/15mL, 30ml daily. Linzess Oral : Capsule 145 mcg, daily. LORazepam Oral : Tablet 1 mg, 2 MG IN AM AND 1 MG AT 1200. Omeprazole Oral : Capsule Delayed Release 40 mg, daily. Singulair Oral : 10 mg daily. Synthroid Oral : Tablet 112 mcg, daily. Topamax Oral : 200 mg 2x a day. Tramadol HCL Oral : 300mg daily. Follow-up: Follow up with your doctor tomorrow even if well. Call for an appointment. Reason for referral: evaluation. Summary of care provided to patient via paper. Understanding of the discharge instructions verbalized. Discharge instructions reviewed. (NH).(Electronically signed by Mihaela Menendez MD 12/16/2020 05:43) 6Clinical Report - Physicians/Mid Levels [facility] Emergency Department [address] [place] [address] Phone #: ext- [phone] 12/15/2020 23:35 Patient: LEAH BRYANT Sex: F : 1970 Age: 50y Name Value Range Interpretation Code Description Data Poonam rce(s) Supporting Document(s) ID Date Data Source [id number] 12/16/2020 12:40:00 AM EDT [facility] Name Value Range Interpretation Code Description Data Poonam rce(s) Supporting Document(s) [facility] COL[facility] yellow NORMAL: Yellow [facility] CLARITY turbid NORMAL: Clear [facility] Specific gravity of Urine by Test strip 1.010 1.001 - 1.030 [facility] pH 7 5 - 9 [facility] Glucose [Mass/volume] in Urine by Test strip NORM NORMAL: Negat [facility] Bilirubin.total [Presence] in Urine by Test strip NEG NORMAL: Negative [facility] Ketones [Presence] in Urine by Test strip NEG NORMAL: Negative [facility] Protein [Mass/volume] in Urine by Test strip [facility] N[facility] [Presence] in Urine by Test strip POS NORMAL: Negative [facility] BLOOD 10 NORMAL: Negative A [facility] LEUK EST 25 NORMAL: Negative [facility] Urobilinogen [Mass/volume] in Urine by Test strip NOR less pieter n 1.0 mg/dL [facility] MICROSCOPIC See Below [facility] ital WBC 3 - 5 NORMAL: NONE SEEN [facility] Erythrocytes [#/volume] in Urine by Test strip 1 - 3 NORMAL: NON E SEEN [facility] EPITHELIAL MODERATE NORMAL: NONE SEEN A [facility] Bacteria [Presence] in Urine sediment by Light microscopy 2+ MOD NORMAL: NONE SEEN A [facility] Mucus [Presence] in Urine sediment by Light microscopy 1+ NOR MAL: NONE SEEN [facility] Amorphous sediment [Presence] in Urine sediment by Light maximus roscopy 3+ NORMAL: NONE SEEN [facility] ID Date Data Source [id number] 12/16/2020 12:49:00 AM EDT [facility] Name Value Range Interpretation Code Description Data Poonam rce(s) Supporting Document(s) COMPREHENSIVE METABOLIC PANEL [facility] COMPREHENSIVE METABOLIC PANEL Sodium [Moles/volume] in Serum or Plasma 140 mEq/L 134 - 153 [facility] Potassium [Moles/volume] in Serum or Plasma 3.7 mEq/L 3.6 - 5.0 [facility] Chloride [Moles/volume] in Serum or Plasma 104 mEq/L 98 - 107 [facility] Carbon dioxide, total [Moles/volume] in Serum or Plasma 26 MEQ/L 22 - 30 [facility] Glucose [Mass/volume] in Serum or Plasma 106 MG/DL 70 - 99 H [facility] BUN 15 MG/DL 7 - 21 [facility] al Creatinine [Mass/volume] in Serum or Plasma 0.5 MG/DL 0.7 - 1.5 L [facility] BUN/CREAT 30 8 - 27 H [facility] al Protein [Mass/volume] in Serum or Plasma 7.8 G/DL 6.3 - 8.2 [facility] Albumin [Mass/volume] in Serum or Plasma 4.0 G/DL 3.9 - 5.0 [facility] Globulin [Mass/volume] in Serum by calculation 3.8 GM/DL 2.4 - 3.2 H [facility] A/G RATIO 1.1 0.8 - 2.0 [facility] Calcium [Mass/volume] in Serum or Plasma 10.1 MG/DL 8.4 - 10.2 [facility] Bilirubin.total [Mass/volume] in Serum or Plasma <0.7 MG/DL 0.2 - 1.3 [facility] Alkaline phosphatase [Enzymatic activity/volume] in Serum or Plasma 160 U/L 38 - 126 H [facility] Aspartate aminotransferase [Enzymatic activity/volume] in Serum or Plasma 94 U/L 5 - 40 H [facility] Alanine aminotransferase [Enzymatic activity/volume] in Seru m or Plasma 80 U/L 7 - 56 H [facility] Anion gap 3 in Serum or Plasma 10.0 mmol/L 8.0 - 16.0 [facility] AGE 50 yrs [facility] al NON-AA GFR >60 mL/min [facility] ital AFR AMER GFR >60 mL/min [facility] Ho spital Male GFR In terprentation 20-49 yrs >60 mL/min Normal 50-59 yrs >56 mL/min Normal 60-69 yrs >49 mL/min Normal 70-79yrs >42 mL/min Normal 80 and above >35 mL/min Normal Female GFR Interpretation 20-39 yrs >60 mL/min Normal 40-49 yrs >58 mL/min Normal 50-59 yrs >51 mL/min Normal 60-69 yrs >45 mL/min Normal 70-79 yrs >39 mL/min Normal 80 and above >32 mL/min Normal ID Date Data Source [id number] 12/16/2020 12:37:00 AM T [facility] Name Value Range Interpretation Code Description Data Poonam rce(s) Supporting Document(s) Magnesium [Mass/volume] in Serum or Plasma 1.8 MG/DL 1.7 - 2.2 [facility] ID Date Data Source [id number] 12/16/2020 12:37:00 AM [facility] Name Value Range Interpretation Code Description Data Poonam rce(s) Supporting Document(s) Thyrotropin [Units/volume] in Serum or Plasma by Detec tion limit <= 0.05 mIU/L 2.01 uIU/mL 0.47 - 5.01 [facility] ID Date Data Source [id number] 12/16/2020 12:27:00 AM [facility] Name Value Range Interpretation Code Description Data Poonam rce(s) Supporting Document(s) TROPONIN T <0.01 NG/ML 0.00 - 0.10 [facility] ospital TROPONIN T0.1 ng/ml Recommended as the c linical threshold value forTroponin T. ID Date Data Source [id number] 12/16/2020 12:13:00 AM [facility] Value Range Interpretation Code Description Data Poonam rce(s) Supporting Document(s) CBC NO DIFF [facility] ital COMPLETE BLOOD COUNT Leukocytes [#/volume] in Blood by Automated count 7.4 10^3/uL 4.2 - 1 1.0 [facility] Erythrocytes [#/volume] in Blood by Automated count 3.68 10^6/uL 4. 20 - 5.40 L [facility] Hemoglobin [Mass/volume] in Blood 11.0 g/dL 12.0 - 16.0 L [facility] Hematocrit [Volume Fraction] of Blood by Automated count 34.1 % 3 7.0 - 47.0 L [facility] Erythrocyte mean corpuscular volume [Entitic volume] by Auto mated count 92.7 fL 81.0 - 101 [facility] Erythrocyte mean corpuscular hemoglobin [Entitic mass] by Automated count 29.9 pg 27.0 - 34.0 [facility] Erythrocyte mean corpuscular hemoglobin concentration [Mass/volume] by Automated count 32.3 g/dL 31.0 - 36.0 [facility] Erythrocyte distribution width [Ratio] by Automated count 14.5 % 11.5 - 14.5 [facility] Platelets [#/volume] in Blood by Automated count 232 10^3/uL 150 - 45 0 [facility] Platelet mean volume [Entitic volume] in Blood by Automated count 11.5 fL 7.4 - 10.4 H [facility] ID Date Data Source [id number] 09/28/2020 11:58:00 AM EDT [place], [place] [address]PATIENT NAME: GRACIELA BRYANT OF : 1970REPORT: DISCHARGE SUMMARYPATIENT NUMBER: [id number] STATUS: IPMEDICAL RECORD NUMBER: [id number] OF ADMISSION: 09/18/2020ATE OF DISCHARGE: 1ROOM: 00DISCHARGE DIAGNOSES:1. Sepsis due to UTI.2. Aspiration pneumonia.3. Gait instability due to sepsis.4. Elevated liver function tests.5. Anxiety disorder.6. Developmental delay.7. GERD.8. Hypothyroidism.DISPOSITION: Rehab.HOSPITAL COURSE: Ms. Leah Bryant is a 50-year-old female with history ofdevelopmental delay, resident of residential in [place], anxiety disorder,GERD, hypothyroidism who was transferred from [facility] forevaluation of dysphagia, gait instability and urosepsis. There was concernfor Guillain-Hurdsfield syndrome and patient transferred for further evaluationby neurology. 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 For sepsis due to UTI, patient waskept on Zosyn. She has chronic indwelling Wheat catheter that was changed.Culture from the [facility] grew E-coli and Klebsiella oxytoca.Patient finished the IV antibiotic course. There was also concern foraspiration pneumonia as she presented with nausea, vomiting and dysphagiaand patient received clindamycin. Seen by speech and swallow and patientstarted on NDD1 pureed food diet with nectar thickened liquids. Thepatient has intermittent generalized weakness so patient's home medicationbaclofen and topiramate dose reduced. She is more awake now and toleratingdiet. Seen by neurology and not a concern for Guillain- Hurdsfield syndrome andlikely generalized weakness because of infection. The patient is afebrile.Still has mild leukocytosis. The patient now being discharged to rehab.DISCHARGE PHYSICAL EXAMINATION: Vitals: Temperature 36.9, respiratoryrate 19, heart rate 96, blood pressure 131/68. General: Lyingcomf ortably. CVS: S1 S2 regular. Chest: Bilateral clear air entry onfront. Abdomen: Soft, nontender. PATIENT SAFETY SITTER: Awake.DISCHARGE INSTRUCTIONS AND FOLLOWUP:1. The patient will follow up with halfway physician in 1 week.2. The patient needs CBC, BMP and liver function test in 1 week.3. The patient will follow up with speech and swallow for diet upgrade.DICTATED BY: CALI Brewerictated: 09/24/2020 10:17DT: 09/24/2020 10:26Job #: [id number]:NOTE: [facility] computer generated reports are notconfirmed or authenticated unless they are signed by the providerElectronic ally Authenticated and Edited by:JA HARP MD On 09/28/2020 11:58 AM EDT Name Value Range Interpretation Code Description Data Poonam rce(s) Supporting Document(s) ID Date Data Source [id number] 09/23/2020 06:15:00 PM EDT [facility] Name Value Range Interpretation Code Description Data Poonam rce(s) Supporting Document(s) SARS coronavirus 2 RNA [Presence] in Res piratory specimen by BLANCA with probe detection NOT DETECTED [facility] This lab was reported by [facility]. ID Date Data Source [id number] 09/23/2020 09:30:27 PM EDT [facility] Name Value Range Interpretation Code Description Data Poonam rce(s) Supporting Document(s) SPECIMEN DESCRIPTION [facility] COVID19 RESULT (NDET) [facility] NEGATIVE COVID-19 RESULTS DONOT PRECLUDE COVID-2019 INFECTION ANDSHOULD NOT BE USED THE SOLE BASISFOR PATIENT MANAGEMENT DECISIONS.THIS ASSAY AMPLIFIES AND DETECTS THE TARGETRNA USING ISOTHERMAL HELICASE DEPENDENTAMPLIFICATION.TESTING PERFORMED ON THE AMINTA.THE U.[place]. FDA HAS MADE THIS TEST AVAILABLEUNDER AN EMERGENCY USE AUTHORIZATION(EUA) FOR THE DETECTION AND/OR DIAGNOSISOF THE VIRUS THAT CAUSES COVID-19. FIRST TEST [facility] SYMPTOMATIC [facility] Y DATE OF SYMPT ONSET [facility] H[facility]ED [facility] [place] [facility] CONGREGATE CARE SET [facility] ID Date Data Source [id number] 09/23/2020 08:00:58 AM EDT [facility] Name Value Range Interpretation Code Description Data Poonam rce(s) Supporting Document(s) TOTAL PROTEIN 6.2 g/dL (6.4-8.2) L [facility] ALBUMIN 2.4 g/dL (3.5-4.6) L [facility] GLOBULIN 3.8 g/dL (2.7-4.3) [facility] ALB/GLOB RATIO 0.6 RATIO [facility] BILIRUBIN,TOTAL 0.5 mg/dL (0.0-1.0) [facility] PLEASE NOTE:Total bilirubin results may be falselyelevated in patients taking Eltrombopag. BILIRUBIN,CONJUGATED 0.2 mg/dL (0.0-0.3) [facility] BILIRUBIN,UNCONJ. 0.3 mg/dL (0.0-0.7) [facility] ALKALINE PHOSPHATASE 119 U/L (45-117) H [facility] AST (SGOT) 48 U/L (11-39) H [facility] ALT (SGPT) 54 U/L (12-78) [facility] ID Date Data Source [id number] 09/23/2020 08:00:58 AM EDT [facility] Name Value Range Interpretation Code Description Data Poonam rce(s) Supporting Document(s) SODIUM 145 mmol/L (136-145) [facility] POTASSIUM 3.2 mmol/L (3.6-5.2) L [facility] CHLORIDE 112 mmol/L (100-108) H [facility] CO2 27 mmol/L (22-31) [facility] ANION GAP 6 mmol/L (7-16) L [facility] UREA NITROGEN 4 mg/dL (7-24) L [facility] CREATININE 0.54 mg/dL (0.60-1.00) L [facility] BUN/CREAT RATIO 7.4 RATIO (10.0-20.0) L [facility] GLUCOSE 94 mg/dL (70-99) [facility] CALCIUM 8.7 mg/dL (8.4-10.2) [facility] GFR >60 ml/min/1.73m2 (>59) [facility] GFR ( AMER) >60 ml/min/1.73m2 (>59) [facility] GFR INTERPRETATION [facility] --NORMAL KIDNEY FUNCTION OR MILD DISEASE - GFR >OR= 60CHRONIC KIDNEY DISEASE - GFR 15 - 59RENAL FAILURE - GFR <15 Est. GFR calculation based on the MDRDstudy equation, which assumes a steadystate for creatinine. Est. GFR should notbe used for medication dosing. ID Date Data Source [id number] 09/23/2020 07:35:16 AM EDT [facility] Name Value Range Interpretation Code Description Data Poonam rce(s) Supporting Document(s) WBC 15.6 10*3/uL (4.1-11.0) H [facility] RBC 3.24 10*6/uL (4.00-5.40) L [facility] HGB 9.6 g/dL (12.0-16.0) L [facility] HCT 30.3 % (36.0-47.0) L [facility] MCV 93.6 fL (80.0-95.0) [facility] MCH 29.7 pg (27.0-32.0) [facility] MCHC 31.8 g/dL (32.0-36.0) L [facility] RDW 15.5 % (10.5-14.5) H [facility] PLT 381 10*3/uL (150-450) [facility] MPV 8.1 fL (7.1-10.7) [facility] ID Date Data Source [id number] 09/21/2020 09:39:00 AM EDT [facility] [address] [place] [address] PHONE: [phone] FAX: [phone] Name .................. : SHIVANI Lopez Acct Number.................. : [id number] ROOM. ................. : CCU2 MR Number ................... : [id number] Stay type ............. : I/P Discharge Date......... ... : 09/18/20 Admit Date ......... : 09/17/20 Admit Phys .................... : MATTHEW CHANEL Date of ....... : 1970 Family Phys ................... : JOSE LUIS ROBLEDO Phone .................. : [phone] Age ................................ : 50 Film# .................. .:[id number] Sex ................................. : F Unsigned transcriptions are preliminary reports and do not represent a medical or legal document CT THORAX W/O CONTRAST [id number] COMPLETE:09/17/20 16:42 KJE [id number] Reaso n(s): Congestion CT SCAN OF THE CHEST WITHOUT IV CONTRAST: INDICATION: Congestion. FINDINGS: The bilateral lung bases show atelectasis. No focal infiltrate or consolidation is identified. No evidence of CHF. No bilateral pleural effusions are identified. Degenerative changes are identified in the spine. No abnormal mediastinal or axillary lymph nodes are identified. IMPRESSION: Bibasilar atelectasis. Examination is otherwise unremarkable. While performing the above CT examination, radiation dose reduction was accomplished utilizing automated exposure control, adjusting of the mA and kV based on the patient's body size and/or the use of imperative reconstructive techniques. CT dose: 346.2 mGycm Examination dictated by KIERSTEN Babin. Examination was reviewed with John Hernandez MD, radiologist at the time of this dictation. Electronically Reviewed and Signed By John Hernandez DO , 09/21/20 09:39, MARIANO Transcribe Initials: Avila ALEXANDRA cribe Date: 09/21/20 04:51, Dictation Date: Copy for: 710 MED REC DISCHARGED Page 1 of 1 Name Value Range Interpretation Code Description Data Poonam rce(s) Supporting Document(s) ID Date Data Source [id number] 09/18/2020 01:28:00 [place] [address] HISTORY AND PHYSICALNAME: SHIVANI Lopez ROOM#: [id number] OF : 1970 MR#: [id number] PHYS: Jony Agarwal MD, PC DATE: 09/17/20CHIEF COMPLAINT: This 50-year-old white female presented to the office with confusion, nausea,vomiting, poor appetite.HISTORY OF PRESENT ILLNESS:This patient has not been doing well for the last 24 hours. She is not eating. She [facility] under the care ofthe personnel there. She has not been eating well. She vomited once last night and one time this morning. Shecould not urinate for the last 24 hours. A urinalysis was not available for a check up. The patient has beencomplaining of constipation, quite depressed. She also has history of hypothyroidism, moderate intellectualdisability, history of pneumonia. This time she vomited once last night and once this morning. She does notfeel like eating, so she came to the ER where she was given IV fluids. Urine culture and blood cultures wereobtained. Patient cannot communicate properly. She shakes her head, but she denies any chest pain ordyspnea. No orthopnea or paroxysmal noct urnal dyspnea. The patient has known history of depression,moderate intellectual disability, hypothyroidism, history of constipation pneumonia, history of cough, anxiety.She takes Ativan 1 mg as needed for anxiety and Singulair 10 mg daily.MEDICATIONS: 1. Baclofen 20 mg, 2 in the PM 2. Cymbalta 60 mg 2 capsules daily 3. Debrox solution ear drops monthly 4. Karolina 180 mg daily 5. Fibercon 625 mg daily 6. Folic acid 1 mg daily 7. Ibuprofen 200 mg p.r.n. 8. Lactulose daily 9. Linzess 145 mg daily 10. Lorazepam 1 mg daily as needed 11. Prilosec 40 mg daily 12. Singulair 10 mg daily 13. Synthroid 112 mcg daily 14. Topamax 200 mg b.i.d. 15. Tramadol 300 mg as neededREVIEW OF SYSTEMS:The patient denies any chest pain. No chills or fever. No cough or hemoptysis. No bowel disturbance.She has scanty urine. No hematemesis. No hematuria.PAST MEDICAL HISTORY: [address] [place] [address] HISTORY AND PHYSICALNAME: SHIVANI Lopez ROOM#: [id number] OF : 1970 MR#: [id number] PHYS: Jony Agarwal MD, PC 51ADMISSION DATE: 09/17/20The patient two years ago was admitted for pneumonia here. She also had an injury to the knee andsome knee surgery. Patient is hard of hearing and depressed.PERSONAL HISTORY:Nonsmoker.FAMILY HISTORY:Mother and father are unknown.PHYSICAL EXAMINATION:GENERAL: Moderately-built.VITAL SIGNS: Blood pressure is 130/80. Pulse is 122. Respirations 18. O2 saturation is 99%.HEENT: Head is normal. Pupils and fundus are normal. Mouth normal. Tongue dry.NECK: Supple. No lymphadenopathy. Thyroid not enlarged. Neck veins are not distended. No carotidbruits.CHEST: Symmetrical.HEART: Regular sinus rhythm. No murmur or gallop.LUNGS: Clear with no rales or rhonchi.ABDOMEN: Soft and nontender. No visceromegaly.EXTREMITIES: Normal. Peripheral pulses are palpable.LABORATORY DATA:Urinalysis shows leukocyte esterase positive and blood in the urine.IMPRESSION: 1. Urosepsis 2. Episode of confusion, rule out TIA 3. History of depression 4. History of hard of hearing 5. History of hypothyroidism 6. History of moderate intellectual disability 7. Rule out pneumonia 8. History of constipation 9. History of severe anxiety 10. History of backachePLAN: [address] [place] [address] HISTORY AND PHYSICALNAME: SHIVANI Lopez ROOM#: [id number] OF : 1970 MR#: [id number] PHYS: Jony Agarwal MD, PC DATE: 09/17/20This patient will have urine culture and blood cultures obtained. We will give Zosyn 3.375 grams q 8hourly IV. CT scan of the brain was negative. CT scan of the chest and abdomen was negative for anyinfection. We will see the response to IV antibiotic. She has tachycardia at 110. Her heart will bemonitored with continuous telemetry monitoring. Prognosis guarded.DD: Jony Agarwal MD, PC 09/17/20 17:44DT: MAVERICK 09/18/20 13:15DS: Jony Agarwal MD, PC 09/21/20 08:27 3 Name Value Range Interpretation Code Description Data Poonam rce(s) Supporting Document(s) ID Date Data Source [id number] 09/18/2020 01:29:00 PM EDT [address] [place] [address] DISCHARGE SUMMARYNAME: SHIVANI Lopez ROOM#: [id number] OF : 1970 MR#: [id number] PHYS: Jony Agrawal MD, PC [facility] [id number] DATE: 09/17/20 DISCHARGED:HISTORY OF PRESENT ILLNESS:This 50-year-old white female comes from [facility]. She has mental retardation and cannot express herself.She came to the emergency room. She vomited twice, once the night before, one in the morning andtwo before admission and does not feel like eating. She has developed dysphagia. She has history ofanxiety. She takes Ativan 1 mg q 8 hourly as needed for anxiety. She was admitted initially forpossible urosepsis. She had a temperature of 100 degrees Fahrenheit. On examination, blood pressureis 120/80. Head is normal. Heart is regular sinus rhythm. Lungs are clear. Abdomen is soft, nontender.On neurologic examination, there is slight weakness in the legs noted. Reflexes are okay and brisk.LABORATORY & X-RAY DATA:Lab tests showed that the initial hemoglobin was 11.2. Urinalysis showed WBCs in the urine. Sodiumwas 142, potassium was 4.2, BUN 19, creatinine was 0.7. The initial white count was 8.3. Hemoglobinwas 11.2. Lipase was 15. CT scan of the head was negative. CT scan of the abdomen and chest werenegative. EKG was regular sinus rhythm. Magnesium was 1.6. Troponin was normal. CRP was 111,which was high. Lactic acid was 0.8. Hemoglobin was 10.3. White count was 9.5. Sed rate was 57.Repeat white count was 9.5.HOSPITAL COURSE:The patient was treated initially with IV fluids in the emergency room. Urine culture and bloodcultures were done. IV Rocephin was given at 1 gram in the emergency room and normal saline 1 literwas given. She was admitted and watched with telemetry monitoring. Neuro checks were done. Duringthe course of the hospital, she developed a swallowing problem and could not swallow, so it wasdecided to keep her n.p.o. and 5% DW normal saline was given at 80 cc/hr. Zosyn was added at 3.375gram q 8 hourly IV and clindamycin 600 mg q 8 hourly IV. It appears that the patient has someneurological problem. I spoke with Dr. Cheng, the neurologist at [facility] and he agreedand the patient will be transferred to the hospitalist service at [place] for further evaluation as a brainstem infarct or Guillain-Hurdsfield syndrome cannot be ruled out. She was stable at the time of discharge.FINAL DIAGNOSES:1. TIA2. Rule out stroke3. Rule out brain stem infarct4. Rule out Guillain-Hurdsfield syndrome5. Urosepsis6. History of mental retardation7. History of anxiety [address] [place] [address] DISCHARGE SUMMARYNAME: SHIVANI Lopez ROOM#: [id number] OF : 1970 MR#: [id number] PHYS: Jony Agarwal MD, PC DATE: 09/17/20 DISCHARGED:DD: Jony Agarwal MD, PC 09/18/20 12:08DT: DMZ 09/18/20 13:10DS: Jony Agarwal MD, PC 09/21/20 08:27 2 Name Value Range Interpretation Code Description Data Poonam rce(s) Supporting Document(s) ID Date Data Source [id number] 09/21/2020 07:21:36 AM EDT [facility] Name Value Range Interpretation Code Description Data Poonam rce(s) Supporting Document(s) SODIUM 147 mmol/L (136-145) H [facility] POTASSIUM 3.5 mmol/L (3.6-5.2) L [facility] CHLORIDE 116 mmol/L (100-108) H [facility] CO2 25 mmol/L (22-31) [facility] ANION GAP 6 mmol/L (7-16) L [facility] UREA NITROGEN 9 mg/dL (7-24) [facility] CREATININE 0.76 mg/dL (0.60-1.00) [facility] BUN/CREAT RATIO 11.8 RATIO (10.0-20.0) [facility] GLUCOSE 88 mg/dL (70-99) [facility] CALCIUM 8.5 mg/dL (8.4-10.2) [facility] TOTAL PROTEIN 6.2 g/dL (6.4-8.2) L [facility] ALBUMIN 2.6 g/dL (3.5-4.6) L [facility] GLOBULIN 3.6 g/dL (2.7-4.3) [facility] ALB/GLOB RATIO 0.7 RATIO [facility] ALKALINE PHOSPHATASE 149 U/L (45-117) H [facility] BILIRUBIN,TOTAL 0.5 mg/dL (0.0-1.0) [facility] PLEASE NOTE:Total bilirubin results may be falselyelevated in patients taking Eltrombopag. AST (SGOT) 74 U/L (11-39) H [facility] ALT (SGPT) 67 U/L (12-78) [facility] GFR >60 ml/min/1.73m2 (>59) [facility] GFR ( AMER) >60 ml/min/1.73m2 (>59) [facility] GFR INTERPRETATION [facility] --NORMAL KIDNEY FUNCTION OR MILD DISEASE - GFR >OR= 60CHRONIC KIDNEY DISEASE - GFR 15 - 59RENAL FAILURE - GFR <15 Est. GFR calculation based on the MDRDstudy equation, which assumes a steadystate for creatinine. Est. GFR should notbe used for medication dosing. ID Date Data Source [id number] 09/21/2020 06:58:45 AM EDT [facility] Name Value Range Interpretation Code Description Data Poonam rce(s) Supporting Document(s) WBC 13.2 10*3/uL (4.1-11.0) H [facility] RBC 3.53 10*6/uL (4.00-5.40) L [facility] HGB 10.5 g/dL (12.0-16.0) L [facility] HCT 32.7 % (36.0-47.0) L [facility] MCV 92.7 fL (80.0-95.0) [facility] MCH 29.9 pg (27.0-32.0) [facility] MCHC 32.2 g/dL (32.0-36.0) [facility] RDW 15.2 % (10.5-14.5) H [facility] PLT 300 10*3/uL (150-450) [facility] MPV 9.2 fL (7.1-10.7) [facility] ID Date Data Source [id number] 09/20/2020 09:39:00 AM EDT [facility] [address] [place] [address] PHONE: [phone] FAX: [phone] Name .................. : SHIVANI Lopez Acct Number.................. : [id number] ROOM. ................. : CCU2 MR Number ................... : [id number] Stay type ............. : I/P Discharge Date......... ... : 09/18/20 Admit Date ......... : 09/17/20 Admit Phys .................... : MATTHEW DARÍO Date of ....... : 1970 Family Phys ................... : JOSE LUIS ROBLEDO Phone .................. : [phone] Age ................................ : 50 Film# .................. .:[id number] Sex ................................. : F Unsigned transcriptions are preliminary reports and do not represent a medical or legal document CT ABD & PELVIS W/ IV ONLY [id number] COMPLETE:09/17/20 14:26 E [id number] Reason(s): Abdominal Distention CT SCAN OF THE ABDOMEN AND PELVIS WITH CONTRAST: INDICATION: Abdominal distention. FINDINGS: Prominence of the vasculature is identified in the lung bases. Underlying pulmonary venous hypertension should be considered. The heart appears unremarkable. The liver and gallbladder appear unremarkable. The spleen demonstrates a hypodensity measuring approximately 1.4 cm. This is stable as compared to the prior study and probably represents a cyst. No gross abnormality of the adrenal glands is identified. The pancreas appears unremarkable. The bilateral kidneys appear unremarkable. There is no hydronephrosis or nephrolithiasis identified. There is a large amount of stool identified throughout the colon. The appendix is visualized and appears unremarkable. A Wheat catheter is present in the urinary bladder. A small amount of air is identified within the bladder probably secondary to the catheterization. No free fluid is identified. The urinary bladder is moderately distended, despite having a Wheat catheter in place. Evaluation to exclude obstruction of the Wheat catheter should be considered. The osseous structures appear unremarkable. There are enhancing strictures identified in the pelvis that probably represent uterine fibroids. Sonogram can be performed for confirmation. IMPRESSION: Constipation. A large amount of stool is identified throughout the colon. Stable splenic cysts. The appendix is normal. No hydronephrosis or nephrolithiasis. A Wheat catheter is present in the urinary bladder. The urinary bladder is moderately distended despite having a Wheat catheter present. Correlation to exclude obstruction of the Wheat catheter is recommended. A small amount of air is identified within the urinary bladder probably secondary to catheterization. Page 1 of 2 [facility] [address] [place] [address] PHONE: [phone] FAX: [phone] Name .................. : SHIVANI Lopez Acct Number.................. : [id number] ROOM. ................. : CCU2 MR Number ................... : [id number] Stay type ............. : I/P Discharge Date......... ... : 09/18/20 Admit Date ......... : 09/17/20 Admit Phys .................... : MATTHEW DARÍO Date of ....... : 1970 Family Phys ................... : JOSE LUIS ROBLEDO Phone .................. : [phone] Age ................................ : 50 Film# .................. .:[id number] Sex ................................. : F Unsigned transcriptions are preliminary reports and do not represent a medical or legal document CT ABD & PELVIS W/ IV ONLY [id number] COMPLETE:09/17/20 14:26 KJE [id number] Reason(s): Abdominal Distention While performing the above CT examination, radiation dose reduction was accomplished utilizing automated exposure control, adjusting of the mA and kV based on the patient's body size and/or the use of imperative reconstructive techniques. CT dose: 856.4 mGycm Contrast agent in mL: 75 Isovue 370 Method of administration: Intravenous Examination dictated by KIERSTEN Babin. Examination was reviewed with Alex Kraus MD, radiologist at the time of this dictation. Electronically Reviewed and Signed By Alex Kraus MD , 09/20/20 09:39, AML Transcribe Initials: DZ , Transcribe Date: 09/19/20 04:47, Dictation Date: Copy for: 710 MED REC DISCHARGED Page 2 of 2 Name Value Range Interpretation Code Description Data Poonam rce(s) Supporting Document(s) ID Date Data Source [id number] 09/20/2020 09:39:00 AM EDT [facility] [address] [place] [address] PHONE: [phone] FAX: [phone] Name .................. : SHIVANI Lopez Acct Number.................. : [id number] ROOM. ................. : CCU2 MR Number ................... : [id number] Stay type ............. : I/P Discharge Date......... ... : 09/18/20 Admit Date ......... : 09/17/20 Admit Phys .................... : MATTHEW CHANEL Date of ....... : 1970 Family Phys ................... : JOSE LUIS ROBLEDO Phone .................. : [phone] Age ................................ : 50 Film# .................. .:[id number] Sex ................................. : F Unsigned transcriptions are preliminary reports and do not represent a medical or legal document CT HEAD W/O CONTRAST [id number] COMPLETE:09/17/20 13:01 [facility] [address] Reason(s): Head Injury CT OF THE HEAD WITHOUT CONTRAST: INDICATION: Head injury. FINDINGS: No evidence of an acute hemorrhage or infarct is identified. No midline shift or mass effect is identified. No clear evidence of an extra-axial fluid collection is identified. There is incidental note of a tucker cisterna magna. 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 No acute findings. While performing the above CT examination, radiation dose reduction was accomplished utilizing automated exposure control, adjusting of the mA and kV based on the patient's body size and/or the use of imperative reconstructive techniques. CT dose: 730.1 mGycm Examination dictated by KIERSTEN Babin. Examination was reviewed with Alex Kraus MD, radiologist at the time of this dictation. Electronically Reviewed and Signed By Alex Kraus MD , 09/20/20 09:39, [facility] Transcribe Initials: NASRIN , Transcribe Date: 09/19/20 03:01, Dictation Date: Copy for: 710 MED REC DISCHARGED Page 1 of 1 Name Value Range Interpretation Code Description Data Poonam rce(s) Supporting Document(s) ID Date Data Source [id number] 09/20/2020 09:39:00 [place] [address] PHONE: [phone] FAX: [phone] Name .................. : SHIVANI Lopez Acct Number.................. : [id number] ROOM. ................. : CCU2 Number ................... : [id number] Stay type ............. : I/P Discharge Date......... ... : 09/18/20 Admit Date ......... : 09/17/20 Admit Phys .................... : MATTHEW CHANEL Date of ....... : 1970 Family Phys ................... : JOSE LUIS ROBLEDO Phone .................. : [phone] Age ................................ : 50 Film# .................. .:[id number] Sex ................................. : F Unsigned transcriptions are preliminary reports and do not represent a medical or legal document ABDOMEN MULTIPLE VIEW [id number] COMPLETE:09/17/20 15:25 [facility] 85486 Reason(s): Abdominal Distention MULTIPLE VIEW ABDOMEN WITH PA CHEST: INDICATION: Abdominal distention. FINDINGS: Lung rodriguez are clear. There is no focal infiltrate or consolidation identified. The cardiac silhouette appears unremarkable. The osseous structures show degenerative changes. The bowel gas pattern is nonspecific. IMPRESSION: Lung rodriguez are clear. No acute pulmonary findings are present. The bowel gas p attern is nonspecific. The osseous structures demonstrates degenerative changes. Examination dictated by KIERSTEN Babin. Examination was reviewed with Alex Kraus MD, radiologist at the time of this dictation. Electronically Reviewed and Signed By Alex Kraus MD , 09/20/20 09:39, AML Transcribe Initials: NASRIN , Transcribe Date: 09/19/20 03:04, Dictation Date: Copy for: 710 MED REC DISCHARGED Page 1 of 1 Name Value Range Interpretation Code Description Data Poonam rce(s) Supporting Document(s) ID Date Data Source [id number] 09/19/2020 07:48:06 AM EDT [facility] Name Value Range Interpretation Code Description Data Poonam rce(s) Supporting Document(s) SODIUM 146 mmol/L (136-145) H [facility] POTASSIUM 3.2 mmol/L (3.6-5.2) L [facility] CHLORIDE 111 mmol/L (100-108) H [facility] CO2 26 mmol/L (22-31) [facility] ANION GAP 9 mmol/L (7-16) [facility] UREA NITROGEN 16 mg/dL (7-24) [facility] CREATININE 0.82 mg/dL (0.60-1.00) [facility] BUN/CREAT RATIO 19.5 RATIO (10.0-20.0) [facility] GLUCOSE 104 mg/dL (70-99) H [facility] CALCIUM 8.6 mg/dL (8.4-10.2) [facility] TOTAL PROTEIN 6.4 g/dL (6.4-8.2) [facility] ALBUMIN 2.8 g/dL (3.5-4.6) L [facility] GLOBULIN 3.6 g/dL (2.7-4.3) [facility] ALB/GLOB RATIO 0.8 RATIO [facility] ALKALINE PHOSPHATASE 166 U/L (45-117) H [facility] BILIRUBIN,TOTAL 0.5 mg/dL (0.0-1.0) [facility] PLEASE NOTE:Total bilirubin results may be falselyelevated in patients taking Eltrombopag. AST (SGOT) 79 U/L (11-39) H [facility] ALT (SGPT) 77 U/L (12-78) [facility] GFR >60 ml/min/1.73m2 (>59) [facility] GFR ( AMER) >60 ml/min/1.73m2 (>59) [facility] GFR INTERPRETATION [facility] --NORMAL KIDNEY FUNCTION OR MILD DISEASE - GFR >OR= 60CHRONIC KIDNEY DISEASE - GFR 15 - 59RENAL FAILURE - GFR <15 Est. GFR calculation based on the MDRDstudy equation, which assumes a steadystate for creatinine. Est. GFR should notbe used for medication dosing. ID Date Data Source [id number] 09/19/2020 07:48:06 AM EDT [facility] Name Value Range Interpretation Code Description Data Poonam rce(s) Supporting Document(s) TSH,ULTRASENSITIVE @ 1.068 mIU/L (0.360-4.170) [facility] PERFORMED AT [facility] [id number] ID Date Data Source [id number] 09/19/2020 01:53:00 AM EDT [facility] [place] [id number] NAME: GRACIELA BRYANT OF : 1970REPORT: ADMISSION NOTEPATIENT NUMBER: [id number] STATUS: IPMEDICAL RECORD NUMBER: [id number] OF ADMISSION: 1ROOM: [address] [place] [address] CARE PHYSICIAN: Jony Agarwal [facility] COMPLAINT: Here transferred from [facility] due todysphagia, gait instability, and urosepsis.HISTORY OF PRESENT ILLNESS: The patient is a 50-year-old Americanfemale. She is a resident of a residential in [place]. She is known to have baseline mental retardation. She is not able to express herself. The patient was transferred from the residential to the [facility] on September 17, was vomiting and dysphagia. She had a urinary tract infection with a temperature initially of 100 degrees Fahrenheit. She was started on treatment for urosepsis. Throughout her stay, she was noted to have weaknesses in her legs and she developed swallowing problems. She was given Zosyn and clindamycin. She had a CT brain with no acute finding. Her treating physician discussed her case with Dr. Cheng, from Neurology Department at [facility] and her PCP transferred her here for further management as there was a feeling that she might have some neurological issues driving her dysphagia in addition to her weaknesses in her legs.When I examined the patient today, she was with her aide from the [facility]. The patient does not express herself. She has severe hard ofhearing and mental retardation. She was not able to give me anyinformation. I did speak to her nurse manager wealth management in the residential. Thenurse manager wealth management explained to me that she usually ambulates but in the lasttwo weeks she has been having weaknesses in her legs. She has not beenhaving a steady gait and she had tendency to fall down. She had a few daysago also some swallowing issue. She has not been eating and she has notbeen swallowing her p.o. medications. Basically when she takes her p.o.meds, she just rolls them in her mouth without swallowing. If she was able to swallow, she would vomit after that.REVIEW OF SYSTEMS: Cannot be obtained due to patient's condition. Fromthe history and the records, she had fever on admission on 09/17/2020 [facility]. Found to have a urine infection. She hasdysphagia and drooling of saliva, she has weaknesses in the legs asmentioned. Nausea and vomiting as stated above.ALLERGIES: No known allergy as listed in her records.HOME MEDICATIONS:baclofen 20 mg Tablet 1 tablet oral three times a dayMedication Status: activeDULoxetine 60 mg capsule,delayed release(DR/EC) 2 capsule oral daily everyeveningMedication Status: activelactulose 10 gram/15 mL Solution 15 mL oral daily every morningMedication Status: activelevothyroxine 112 mcg Tablet 1 tablet oral daily every morningMedication Status: activelinaclotide (Linzess) 145 mcg Capsule 1 capsule oral daily every morningMedication Status: activeLORazepam 1 mg Tablet 2 tablet oral daily every morningMedication Status: activemontelukast 10 mg Tablet 1 tablet oral daily every eveningMedication Status: activeomeprazole 40 mg capsule,delayed release(DR/EC) 1 capsule oral every otherdayMedication Status: activerisperidone 1 mg Tablet 1 tablet oral twice a dayMedication Status: activetopiramate 200 mg Tablet 1 tablet oral twice a dayMedication Status: activetraMADol 300 mg Tablet Extended Release 24 hr 1 tablet oral daily everymorningMedication Status: activefexofenadine 180 mg Tablet 1 tablet oral daily every morningMedication Status: activedocusate sodium 100 mg Capsule 1 capsule oral daily at bedtimeMedication Status: activecalcium polycarbophil (Fiber-Lax) 625 mg Tablet 1 tablet oral twice a dayMedication Status: activefoLIC Acid 1 mg Tablet 1 tablet oral daily every morningMedication Status: activepolyethylene glycol 3350 (Miralax) 17 gram Powder in Packet 1 packet oraldaily every eveningMedication Status: activeLORazepam 1 mg Tablet 1 tablet daily with lunchMedication Status: activeHOSPITAL MEDICATIONS: She is currently on clindamycin and Zosyn inaddition to Lovenox for DVT prophylaxis. She is on Ativan on p.r.n. basisand her p.o. medications are held since today.PAST MEDICAL HISTORY: Positive for mental retardation, hypothyroidism,hard of hearing, episode of confusion, constipation, severe anxiety, backpain, intellectual disability.FAMILY HISTORY: Unobtainable.SOCIAL HISTORY: She is a resident of a residential. No mentioning of druguse or alcohol or tobacco.PHYSICAL EXAMINATION:Vital Signs: Temperature 36.4, blood pressure 146/74, respiratory rate 18,and heart rate is 85.Head: Normocephalic, nontraumatic.Mouth: She has poor dentition. She has drooling of saliva from her mouth.Neck: Supple. No thyroid enlargement or JVD or carotid bruit.Respiratory: Clear to auscultation.Cardiovascular: S1 and S2. No murmurs.Abdomen: Soft, nontender, no organomegaly. Normal sounds.Neuro: Cannot be assessed appropriately due to patient's non-cooperation,but reflexes are adequate.Skin: No rash or petechiae in arms or legs. No edema in lowerextremities.LABORATORY DATA AND IMAGING: The following labs were done yesterday [facility]. She had a WBC of 9.5, hemoglobin 10.8, ocakkewysh77.6, platelet count 215,000 with a neutrophil of 80 percent. Sodium 143,potassium 3.9, chloride 107, glucose 129, BUN 16, creatinine 0.7, alb umin3.6, total bilirubin less than 0.7, alkaline phosphatase 171, AST 60, ALT61. GFR more than 60. CRP 111. Urinalysis shows elevated leukocyteesterase and blood. There is 5 to 7 wbc's and 2+ bacteria. Urine cultureis still pending. Troponin was less than 0.01. COVID-19 test screeningwas negative. Lipase 15. Magnesium 1.6.CT scan of the thorax, bibasilar atelectasis, no focal infiltrate orconsolidation, no CHF, no pleural effusion.CT abdomen and pelvis, constipation, large amount of stool is identifiedthroughout the colon, stable splenic cyst, no hydronephrosis. Foleycatheter is present in the urinary bladder. Urinary bladder moderatelydistended despite having a Wheat catheter. Correlate to excludeobstruction of the Wheat catheter. 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 X-ray of the abdomen, bowel gaspattern is nonspecific.EKG on presentation to [facility], she had sinus tachycardia.ASSESSMENT AND PLAN:1. Urinary tract infection with urosepsis. The patient is already on Zosyn and then clindamycin was added. Unclear if the clindamycin was added as a protocol for sepsis there or if there was a suspicion for aspiration. We will continue Zosyn and clindamycin for the time being. Pending urine culture results. We will repeat CBC in the morning.2. Nausea and vomiting. It seems the problem is still persistent. She vomited a couple of times here since she arrived. I will give her Zofran on p.r.n. basis. As per above, she looks to have constipation with large amount of stool through the colon but there is no mention of any bowel obstructions in the CT abdomen and pelvis. We will treat her vomiting with Zofran and also we will give her medication for constipation.3. Constipation. She is on multiple medic ations for bowel regimen and we will make her n.p.o. for now. We will give her Dulcolax suppository. If that does not help, we will consider enema.4. Dysphagia. She is going to stay n.p.o. for now until she gets formal swallow evaluation.5. Gait instability. Probably related to overall medical condition and associated with dysphagia. Her condition was discussed by Dr. Agarwal from [facility] and Dr. Cheng. She will need to be seen during the day by Neurology for evaluation.6. Severe anxiety disorder. She was on 3 mg of Ativan in the halfway per day. We will give her 1 mg Ativan every eight hours p.r.n. for anxiety.7. GERD. We will put her on Protonix IV instead of the p.o.8. Hypothyroidism. We will check a TSH level. She will be off her medications until she gets swallow evaluation.9. Mildly elevated liver enzymes. We will repeat comprehensive metabolic panel in the morning.10. 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 We will leave this to Neurology for further evaluation. There is a CD sent with her with the imaging.11. Code status. The patient has mental retardation and she cannot verify. However, I spoke to her nurse manager wealth management at the residential and she is full code.12. DVT prophylaxis. We will continue Lovenox.DICTATED BY: CALI Cartwrightictated: 09/18/2020 22:37DT: 09/18/2020 22:48Job #: [id number]: Jony Agarwal MDNOTE: [facility] computer generated reports are notconfirmed or authenticated unless they are signed by the providerElectronically Authenticated and Edited by:LUIS JULES MD On 09/19/2020 01:53 AM EDT Name Value Range Interpretation Code Description Data Poonam rce(s) Supporting Document(s) ID Date Data Source [id number] 09/18/2020 09:04:15 PM EDT [facility] Name Value Range Interpretation Code Description Data Poonam rce(s) Supporting Document(s) POC GLUCOSE 103 mg/dL (70-99) H [facility] Ania Jiménez NOTIFIED NURSEPERFORMED BY CLINICAL S TAFF ID Date Data Source [id number] 09/18/2020 02:23:00 PM EDT [facility] [address] [place], [place] [address] [address] RESPIRATORY CARE REPORT ==== ---------NAME------- NUMBER SEX AGE ADMIT DISC. XRAY# F/C TYPEKENMIKE Lopez [id number] F 50 09/17/20 [id number] M4 I/P DATE OF : 1970 M/R# [id number] #: [id number] CCU2 LOCATION: EMERGENCY DEPT [facility] [address] COMPL ETE:09/18/20 08:15 [facility] [address] PHYSICIAN: MATTHEW CHANEL Name Value Range Interpretation Code Description Data Poonam rce(s) Supporting Document(s) ID Date Data Source [id number] 09/18/2020 09:11:00 AM EDT [facility] Name Value Range Interpretation Code Description Data Poonam rce(s) Supporting Document(s) Erythrocyte sedimentation rate by Westergren method 57 mm/hr 0 - 30 H [facility] SED RATE REENTER 57 [facility] ID Date Data Source [id number] 09/18/2020 08:26:00 AM EDT [facility] Name Value Range Interpretation Code Description Data Poonam rce(s) Supporting Document(s) CBC W/AUTOMATED DIFF [facility] COMPLETE BLOOD COUNT Leukocytes [#/volume] in Blood by Automated count 9.5 10^3/uL 4.2 - 1 1.0 [facility] Erythrocytes [#/volume] in Blood by Automated count 3.61 10^6/uL 4. 20 - 5.40 L [facility] Hemoglobin [Mass/volume] in Blood 10.8 g/dL 12.0 - 16.0 L [facility] Hematocrit [Volume Fraction] of Blood by Automated count 33.6 % 3 7.0 - 47.0 L [facility] Erythrocyte mean corpuscular volume [Entitic volume] by Auto mated count 93.1 fL 81.0 - 101 [facility] Erythrocyte mean corpuscular hemoglobin [Entitic mass] by Automated count 29.9 pg 27.0 - 34.0 [facility] Erythrocyte mean corpuscular hemoglobin concentration [Mass/volume] by Automated count 32.1 g/dL 31.0 - 36.0 [facility] Erythrocyte distribution width [Ratio] by Automated count 15.3 % 11.5 - 14.5 H [facility] Platelets [#/volume] in Blood by Automated count 215 10^3/uL 150 - 45 0 [facility] Platelet mean volume [Entitic volume] in Blood by Automated count 11.7 fL 7.4 - 10.4 H [facility] Neutrophils/100 leukocytes in Blood by Automated count 80.2 % 37. 0 - 80.0 H [facility] Lymphocytes/100 leukocytes in Blood by Manual count 13.1 % 25.0 - 40.0 L [facility] Monocytes/100 leukocytes in Blood by Automated count 6.2 % 3.0 - 8.0 [facility] Eosinophils/100 leukocytes in Blood by Automated count 0.0 % 0.0 - 7.0 [facility] Basophils/100 leukocytes in Blood by Automated count 0.1 % 0.0 - 2.5 [facility] %IG 0.4 % 0.0 - 0.0 [facility] %[facility] 0.2 % 0.0 - 0.0 H [facility] al Neutrophils [#/volume] in Blood by Automated count 7.62 10^3/uL 2.00 - 6.90 H [facility] Lymphocytes [#/volume] in Blood by Automated count 1.25 10^3/uL 0.60 - 3.40 [facility] Monocytes [#/volume] in Blood by Automated count 0.59 10^3/uL 0.00 - 0.90 [facility] Eosinophils [#/volume] in Blood by Automated count 0.00 10^3/uL 0.00 - 0.70 [facility] Basophils [#/volume] in Blood by Automated count 0.01 10^3/uL 0.00 - 0.20 [facility] #IG 0.04 10^3/uL 0.00 - 0.10 [facility] ospital #NRBC 0.02 10^3/uL 0.00 - 0.00 H [facility] MANUAL DIFF NOT INDICATED [facility] RBC MORPH NOT INDICATED [facility] ID Date Data Source [id number] 09/18/2020 07:58:00 AM EDT [facility] Name Value Range Interpretation Code Description Data Poonam rce(s) Supporting Document(s) C reactive protein [Mass/volume] in Serum or Plasma by High sensitivity method 111.51 MG/L 1.00 - 3.00 H [facility] CDC/S HS-CRP CUT-OFF: RELATIVE RISK: <1.0 mg/L Low 1.0 - 3.0 mg/L Average >3.0 mg/L High Optimally, the average of HS-CRP results repeated two weeks apart should be used for risk assessment. ID Date Data Source [id number] 09/18/2020 07:36:00 AM EDT [facility] Name Value Range Interpretation Code Description Data Poonam rce(s) Supporting Document(s) COMPREHENSIVE METABOLIC PANEL [facility] COMPREHENSIVE METABOLIC PANEL Sodium [Moles/volume] in Serum or Plasma 143 mEq/L 134 - 153 [facility] Potassium [Moles/volume] in Serum or Plasma 3.9 mEq/L 3.6 - 5.0 [facility] Chloride [Moles/volume] in Serum or Plasma 107 mEq/L 98 - 107 [facility] Carbon dioxide, total [Moles/volume] in Serum or Plasma 27 MEQ/L 22 - 30 [facility] Glucose [Mass/volume] in Serum or Plasma 129 MG/DL 70 - 99 H [facility] BUN 16 MG/DL 7 - 21 [facility] Creatinine [Mass/volume] in Serum or Plasma 0.7 MG/DL 0.7 - 1.5 [facility] BUN/CREAT 23 8 - 27 [facility] al Protein [Mass/volume] in Serum or Plasma 6.6 G/DL 6.3 - 8.2 [facility] Albumin [Mass/volume] in Serum or Plasma 3.6 G/DL 3.9 - 5.0 L [facility] Globulin [Mass/volume] in Serum by calculation 3.0 GM/DL 2.4 - 3.2 [facility] A/G RATIO 1.2 0.8 - 2.0 [facility] Calcium [Mass/volume] in Serum or Plasma 9.3 MG/DL 8.4 - 10.2 [facility] Bilirubin.total [Mass/volume] in Serum or Plasma <0.7 MG/DL 0.2 - 1.3 [facility] Alkaline phosphatase [Enzymatic activity/volume] in Serum or Plasma 171 U/L 38 - 126 H [facility] Aspartate aminotransferase [Enzymatic activity/volume] in Serum or Plasma 60 U/L 5 - 40 H [facility] Alanine aminotransferase [Enzymatic activity/volume] in Seru m or Plasma 61 U/L 7 - 56 H [facility] Anion gap 3 in Serum or Plasma 9.0 mmol/L 8.0 - 16.0 [facility] AGE 50 yrs [facility] NON-[facility] GFR >60 mL/min [facility] ital AFR AMER GFR >60 mL/min [facility] Male GFR In terprentation 20-49 yrs >60 mL/min Normal 50-59 yrs >56 mL/min Normal 60-69 yrs >49 mL/min Normal 70-79yrs >42 mL/min Normal 80 and above >35 mL/min Normal Female GFR Interpretation 20-39 yrs >60 mL/min Normal 40-49 yrs >58 mL/min Normal 50-59 yrs >51 mL/min Normal 60-69 yrs >45 mL/min Normal 70-79 yrs >39 mL/min Normal 80 and above >32 mL/min Normal ID Date Data Source [id number] 09/18/2020 07:21:00 AM EDT [facility] Name Value Range Interpretation Code Description Data Poonam rce(s) Supporting Document(s) Lactate [Moles/volume] in Serum or Plasma 0.8 MMOL/L 0.2 - 2.2 [facility] ID Date Data Source [id number] 09/21/2020 06:27:00 AM EDT [facility] Name Value Range Interpretation Code Description Data Poonam rce(s) Supporting Document(s) Borrelia burgdorferi IgG+IgM Ab [Units/volume] in Serum <0.91 ISR 0. 00-0.90 [facility] Negative <0.91 Equivocal 0.91 - 1.09 Positive >1.09 Borrelia burgdorferi IgM Ab [Units/volume] in Serum by Immun oassay <0.80 index 0.00-0.79 [facility] Negative <0.80 Equivocal 0.80 - 1.19 Positive >1.19 IgM levels may peak at 3-6 weeks post infection, then gradually decline. ID Date Data Source [id number] 09/21/2020 01:33:00 PM EDT [facility] Name Value Range Interpretation Code Description Data Poonam rce(s) Supporting Document(s) Campylobacter coli+jejuni+upsaliensis DN A [Presence] in Stool by Target amplification with non-probe based detection Not Detected Not Detected [facility] Clostridium difficile toxin A+B (tcdA+tc dB) genes [Presence] in Stool by Target amplification with non-probe based detection Not Detected Not Detected [facility] Plesiomonas shigelloides DNA [Presence] in Stool by Target amplification with non-probe based detection Not Detected Not Detected [facility] Salmonella enterica+bongori DNA [Presenc e] in Stool by Target amplification with non-probe based detection Not Detected Not Detected [facility] Vibrio cholerae+parahaemolyticus+vulnifi cus DNA [Presence] in Stool by Target amplification with non-probe based detection Not Detected Not Detected [facility] Vibrio cholerae DNA [Presence] in Stool by Target amplification with non-probe based detection Not Detected Not Detected [facility] Yersinia enterocolitica DNA [Presence] i n Stool by Target amplification with non-probe based detection Not Detected Not Detected [facility] Escherichia coli enteroaggregative Devyn p lasmid aggR+aatA genes [Presence] in Stool by Target amplification with non-probe based detection Not Detected Not Detected [facility] Escherichia coli enteropathogenic eae ge ne [Presence] in Stool by Target amplification with non-probe based detection Not Detected Not Detected [facility] Escherichia coli enterotoxigenic ltA+st1 a+st1b genes [Presence] in Stool by Target amplification with non-probe based detection Not Detected Not Detected [facility] Escherichia coli shiga-like toxin 1+2 (s tx1+stx2) genes [Presence] in Stool by Target amplification with non-probe based detection Not Detected Not Detected [facility] Escherichia coli O157 DNA [Presence] in Stool by Target amplification with non- probe based detection Not applicable Not Detected [facility] Shigella species+EIEC invasion plasmid a ntigen H (ipaH) gene [Presence] in Stool by Target amplification with non-probe based detection Not Detected Not Detected [facility] Cryptosporidium sp DNA [Presence] in Sto ol by Target amplification with non- probe based detection Not Detected Not Detected [facility] Cyclospora cayetanensis DNA [Presence] i n Stool by Target amplification with non-probe based detection Not Detected Not Detected [facility] Entamoeba histolytica DNA [Presence] in Stool by Target amplification with non- probe based detection Not Detected Not Detected [facility] Giardia lamblia DNA [Presence] in Stool by Target amplification with non-probe based detection Not Detected Not Detected [facility] spital Adenovirus F(40+41) DNA [Presence] in St ool by Target amplification with non- probe based detection Not Detected Not Detected [facility] Astrovirus subtypes 1-8 RNA [Presence] i n Stool by Target amplification with non-probe based detection Not Detected Not Detected [facility] Norovirus genogroup I+II RNA [Presence] in Stool by Target amplification with non-probe based detection Not Detected Not Detected [facility] Rotavirus A RNA [Presence] in Stool by T arget amplification with non-probe based detection Not Detected Not Detected [facility] Sapovirus genogroups I+II+IV+V RNA [Pres ence] in Stool by Target amplification with non-probe based detection Not Detected Not Detected [facility] ID Date Data Source [id number] 09/17/2020 08:33:00 PM EDT [facility] [address] [place] [address] RESPIRATORY CARE REPORT ==== ---------NAME------- NUMBER SEX AGE ADMIT DISC. XRAY# F/C TYPESHIVANI Lopez [id number] F 50 09/17/20 [id number] M4 I/P DATE OF : 1970 M/R# [id number] #: [id number] CCU2 LOCATION: EMERGENCY DEPT EKG [id number] COMPL ETE:09/17/20 12:15 [facility] [id number] PHYSICIAN: MATTHEW Johnston Name Value Range Interpretation Code Description Data Poonam rce(s) Supporting Document(s) ID Date Data Source [id number] 09/17/2020 09:12:00 AM EDT [facility] 1 OrderSheet [facility] Emergency Department [address] [place] [address] Phone #: [phone] [id number]- [id number] 09/17/2020 09:12 Patient: LEAH BRYANT Sex: F : 1970 Age: 50yWEIGHT:67.3 kg (M) HEIGHT:65 inches (S) BMI:24.7ALLERGIES: NoneCHIEF COMPLAINT: vomitingDIAGNOSIS: Urinary tract infectious disease, Sinus tachycardiaLAB ORDERSOrder Description Priority Entered Acknowledged InitialedCBC w Diff STAT 10:09/17/2020 10:47 Howard Vital Jack ; Keyla AbrahamCMP STAT 10:09/17/2020 10:47 Howard Vital Jack ; Keyla AbrahamUrinalysis (Cath STAT 10:09/17/2020 11:14 AmanuelSpec) Ad Lawrence ; Keyla AbrahamCulture, Urine STAT 10:09/17/2020 11:14 Amanuel,(Urine, Catheter) Ad Lawrence ; Keyla AbrahamLipase STAT 10:09/17/2020 10:47 Howard Vital Jack ; Keyla AbrahamCOVID-19 CAH (Not STAT 12:22 09/17/2020 12:22 Alan Kiranymptomatic as Nisreen Kiran R.N.; R.N.Defined by CDC) Verbal order per;(09/17/2020) (Not Ad LawrenceFir Test)(Hospitalized) (Not)(Resident inCongregate CareSetting) (NotEmployed inHealthcare Setting)Blood Culture STAT 15:06 09/17/2020 15:57 Amanuel,q10m X2 (Sched Ad Lawrence ; Keyla R.NSylvester15:06 09/17/2020)Blood Culture STAT 15:06 09/17/2020 15:57 Amanuel,q10m X2 (Sched Ad Lawrence ; Keyla Cordova.Fransisco15:16 09/17/2020)Lactic Acid STAT 15:09 09/17/2020 15:57 Howard Vital Jack ; Keyla AbrahamDIAGNOSTIC STUDY ORDERS 2 OrderSheet [facility] Emergency Department [address] [place] [address] Phone #: ext- [phone] 09/17/2020 09:12 Patient: LEAH BRYANT Sex: F : 1970 Age: 50yOrder Description Priority Entered Acknowledged InitialedAbdomen Multiview STAT 10:05 09/17/2020 10:58 Amanuel(Oxygen?(No)) Ad Lawrence R.N. Reason for Study: Abdominal DistentionCT Head W/O Cont STAT 10:05 09/17/2020 10:58 Amanuel(Oxygen?(No)) Ad Lawrence R.N. Reason for Study: Head Injury, VomitingCT Abd PEL W/ IV STAT 12:01 09/17 13:14 Amanuel,Contrast Only Ad Lawrence R.N.(Oxygen?(No))(IV?(Yes)) Reason for Study: Abdominal Distention, VomitingCT Chest W/O Cont STAT 15:06 09/17/2020 15:53 Long(Oxygen?(No)) Ad Lawrence Reason for Study: CongestionMEDICATION/IV/DRIP/FLUID ORDERSOrder Description Priority Entered Acknowledged InitialedAtivan IM 1 mg 10:30 09/17/2020 10:36 Amanuel,(NOW x1, HIGH Ad Lawrence ; Keyla RKiloALERTMEDICATION)NS IV 1000 mL 12:01 09/17/2020 12:22 Kyle Kiran: : Bolus 1000 Ad Lawrence ; R.N.mL (X1)NS IV 1000 mL 15:39 09/17/2020 15:42 Kyle Kiran: : Bolus 1000 Ad Lawrence ; R.N.mL (X1)Rocephin 15:39 09/17/2020 15:58 Amanuel,(1gm/50mL) IVPB Ad Lawrence R.N.1000 mg withDextrose 50 mlspike bag (D5W)GENERAL ORDERSOrder Description Priority Entered Acknowledged InitialedEKG 10:05 09/17/2020 10:34 Howard Vital Jack ; Keyla Abraham[Electronically signed by Keyla Vital R.N. (17:12 09/17/2020)][Electronically signed by Ad Lawrence (17:56 09/17/2020)][Electronically locked by Keyla Vital R.N. (17:12 09/17/2020)] Name Value Range Interpretation Code Description Data Poonam rce(s) Supporting Document(s) ID Date Data Source [id number] 09/17/2020 09:12:00 AM EDT [facility] 1 Medication Reconciliation Report [facility] Emergency Department [address] [place] [address] Phone #: ext- [phone] 09/17/2020 09:12 Patient: LEAH BRYANT Sex: F : 1970 Age: 50yWeight: 67.3 kgHeight/Length: 65 in.BMI: 24.7ALLERGIES: NoneThe patient's Home Medications are listed below:THE FOLLOWING MEDICATIONS NEED TO BE RECONCILED: Acetaminophen Oral (325 mg) 2 tablets, prn Baclofen 20mg in am and noon, 2 in pm Colace Oral (100 mg) 2 capsules, at bedtime Cy mbalta Oral (60 mg) 2 capsules, daily Debrox Otic (6.5 %) 2 drops, monthly Enema Rectal, prn Fexofenadine HCl Oral 180 mg, daily FiberCon Oral (625 mg) 1 tablet, 2x a day Folic Acid Oral 1 mg, daily guaiFENesin Oral (100 mg/5mL), prn Ibuprofen Oral (200 mg), prn Lactulose Oral (10 gm/15mL) 30ml, daily Linzess Oral (145 mcg), daily LORazepam Oral (1 mg), 2 MG IN AM AND 1 MG AT 1200 Omeprazole Oral (40 mg), daily 2 Medication Reconciliation Report [facility] Emergency Department [address] [place] [address] Phone #: ext- [phone] 09/17/2020 09:12 Patient: LEAH BRYANT Sex: F : 1970 Age: 50y Singulair Oral 10 mg, daily Synthroid Oral (112 mcg), daily Topamax Oral 200 mg, 2x a day Tramadol HCL Oral 300mg, dailyThe source(s) of the original Home Medication information:Not obtained.The following Medications were given to the patient in the Emergency Department:Ativan [IM] IM 1 mg, administered: 10:36 09/17/2020IV NS IV Fluids bolus 1000 mL over 1 hour(s), administered: 12:22 09/17/2020IV NS IV Fluids bolus 1000 mL over 1 hour(s), administered: 15:42 1ROCEPHIN (1GM/50ML) [IVPB] IVPB bolus 0, then 1 gm 100 mL/hr, administered: 15:58 09/17/2020The following Medications were prescribed to the patient:None. Name Value Range Interpretation Code Description Data Poonam rce(s) Supporting Document(s) ID Date Data Source [id number] 09/17/2020 09:12:00 AM EDT [facility] 1 Medication Administration Record [facility] Emergency Department [address] [place] [address] Phone #: [phone]- [phone] 09/17/2020 09:12 Patient: LEAH BRYANT Sex: F : 1970 Age: 50yWeight: 67.3 kgHeight/Length: 65 inBMI: 24.7ALLERGIES: None Date/Time Medication Administered Medication OrderedGiven ATIVAN [IM] (LORAZEPAM) Ativan IM 1 mg (NOW x1, HIGH10:36 09/17/2020 Dose: 1 mg IM ALERT MEDICATION)Keyla Vital R.N.Start IV NS NS IV 1000 mL Bolus: : Bolus [id number]:22 09/17/2020 Dose: IV Fluids mL (X1)Nisreen Kiran R.N. Bolus: 1000 mL over 1 hour(s)---- Dispensed: 1000 mL bagStop Site: #1 left AC13:14 09/17/2020Tasha Vital R.N.Start IV NS NS IV 1000 mL Bolus: : Bolus 537879:42 09/17/2020 Dose: IV Fluids mL (X1)Nisreen Kiran R.N. Bolus: 1000 mL over 1 hour(s)---- Dispensed: 1000 mL bagStop Site: #1 left AC17:00 09/17/2020Keyla iVtal R.N.Start ROCEPHIN (1GM/50ML) [IVPB] Rocephin (1gm/50mL) IVPB 147790:58 09/17/2020 (CEFTRIAXONE SODIUM) mg with Dextrose 50 ml spike Keyla Cordon R.N. Dose: 1 gm IVPB (D5W)---- Rate: 100 mL/hr over 30 minute(s)Stop Dispensed: 50 mL bag17:11 09/17/2020 Site: #1 left Keyla Johnson R.N. Name Value Range Interpretation Code Description Data Poonam rce(s) Supporting Document(s) ID Date Data Source [id number] 09/17/2020 09:12:00 AM EDT [facility] 1 General Instructions [facility] Emergency Department [address] [place] [address] Phone #: ext- [phone] 09/17/2020 09:12 Patient: LEAH BRYANT Sex: F : 1970 Age: 50ySinus tachycardia.Acute urinary tract infection with cystitis. No pyelonephritis or hematuria.(Electronically signed by Ad Lawrence 09/17/2020 17:56) Name Value Range Interpretation Code Description Data Poonam rce(s) Supporting Document(s) ID Date Data Source [id number] 09/17/2020 09:12:00 AM EDT [facility] 1 Clinical Report - Nurses [facility] Emergency Department [address] [place] [address] Phone #: ext- [phone] 09/17/2020 09:12 Patient: LEAH BRYANT Sex: F : 1970 Age: 50yTRIAGE Arrived by private vehicle. Historian: patient professional healthcare representative. Accompanied by friend. ( 2 WEEKS AGO STARTED WITH [facility] WENT TO [place] AND THEY THOUGHT SHE HAD A UTI BUT THEY COULD NOT GET A URINE AND DID NOT TREAT HER, SINCE THEN SHE HAS BEEN WEAK AND SHAKY AND HAS FALLED X2 LAST TIME SUNDAY NIGHT AND HIT HER FACE AND HURT HER LIPS, HAS BEEN SLEEPY AND VOMIT YESTERDAY AND HAS NOT EATEN). Acuity: LEVEL 3. Alert. Onset. (2 WEEK). She has had weakness. ( VOMIT). Treatment PROFESSIONAL CASTER: None. SEPSIS SCREEN: SIRS SCREEN NEGATIVE: heart rate greater than 90. SEPSIS SCREEN NEGATIVE. No suspected or confirmed signs of infection present. --09:31 09/17/20 Nisreen Kiran R.N. 09:24 09/17/20. BP: 135/82. MAP: 99. HR: 122. RR: 18. O2 saturation: 99% on room air. Temp: 97.5 F. Pain level now: 0/10. --09:31 09/17/20 Nisreen Kiran R.N. Chief Complaint: (POSSIBLE UTI). --09:39 09/17/20 Nisreen Kiran R.N. Weight: 67.3 kg measured. Height/Length: 65 inches Per Patient. BMI: 24.7. --09:24 09/17/20 Nisreen Kiran R.N. Medications Baclofen 20mg in am and noon, 2 in pm. Colace Oral (Capsule 100 mg) 2 capsules, at bedtime. Cymbalta Oral (Capsule Delayed Release Particles 60 mg) 2 capsules, daily. FiberCon Oral (Tablet 625 mg) 1 tablet, 2x a day. Folic Acid Oral 1 mg, daily. Lactulose Oral (Solution 10 gm/15mL) 30ml, daily. Singulair Oral 10 mg, daily. Topamax Oral 200 mg, 2x a day. Tramadol HCL Oral 300mg, daily. --09:34 09/17/20 Nisreen Kiran R.N. Omeprazole Oral (Capsule Delayed Release 40 mg), daily. --09:34 09/17/20 Nisreen Kiran R.N. Acetaminophen Oral (Tablet 325 mg) 2 tablets, as needed. --09:35 09/17/20 Nisreen Kiran R.N. Debrox Otic (Solution 6.5 %) 2 drops, monthly. --09:35 09/17/20 Nisreen Kiran R.N. Enema Rectal, as needed. --09:35 09/17/20 Nisreen Kiran R.N. Fexofenadine HCl Oral 180 mg, daily. --09:36 09/17/20 Nisreen Kiran R.N. 2 Clinical Report - Nurses [facility] Emergency Department [address] [place] [address] Phone #: ext- [phone] 09/17/2020 09:12 Patient: LEAH BRYANT Sex: F : 1970 Age: 50yguaiFENesin Oral (Solution 100 mg/5mL), as needed. --09:36 09/17/20 Nisreen Kiran R.N.Ibuprofen Oral (Tablet 200 mg), as needed. --09:36 09/17/20 Nisreen Kiran R.N.Synthroid Oral (Tablet 112 mcg), daily. --09:37 09/17/20 Nisreen Kiran R.N.Linzess Oral (Capsule 145 mcg), daily. --09:37 09/17/20 Nisreen Kiran R.N.LORazepam Oral (Tablet 1 mg) (2 MG IN AM AND 1 MG AT 1200). --09:37 09/17/20 Nisreen Kiran R.N.AllergiesNone. --09:34 09/17/20 Nisreen Kiran R.N.PROBLEMS:Hypothyroidism.Constipation.Moderate intellectual disability.Depression.Pneumonia.Sprain.Hard hearing. --09:38 09/17/20 Nisreen Kiran R.N.ADDITIONAL SURGERIES:Knee Surgery (Left knee). --09:38 09/17/20 Nisreen Kiran R.N.HistoryPAST MEDICAL HX: Immunizations: up-to-date. The patient is post-menopausal.SOCIAL HX: Never smoker. No alcohol use or drug use. She was offered HIV testing but declined andhepatitis C testing but declined. She has not traveled outside the [place]Infectious disease exposure: No infectious disease exposure. Patient is not a known carrier of tuberculosis,hepatitis, HIV, MRSA or VRE. Patient is not a known carrier of CRE.SELF HARM ASSESSMENT: Self harm assessment was performed. Unable to assess the patient inregard to the question(s) "Have you recently felt down, depressed, or hopeless?", "Do you have thoughts ofharming or killing yourself?", "Do you have a plan for harming or killing yourself?", "Have you recently hadthoughts about harming or killing others?", "Do you have any dangerous items in your possession?", "Haveyou notic ed less interest or pleasure in doing things?", "Are you here because you tried to hurt yourself?"and "Have you ever tried to hurt yourself before today?".ABUSE ASSESSMENT: Abuse assessment. Abuse denied. No suspicion of abuse. No report of abuse.NUTRITIONAL RISK ASSESSMENT: The nutritional risk assessment revealed no deficiencies.FALL RISK ASSESSMENT: Fall risk assessment completed. Risk factors identified include patient historyof fall and impairment of mobility and cognition. Fall interventions initiated. Patient placed on stretcher. Siderails up x2. Bed in low position. Brakes on. Call light in reach of patient. Instructions given to patientincluding fall prevention information. Verbalizes understanding. 3 Clinical Report - Nurses [facility] Emergency Department [address] [place] [address] Phone #: ext- [phone] 09/17/2020 09:12 Patient: LEAH BRYANT Sex: F : 1970 Age: 50y FUNCTIONAL ASSESSMENT: Functional assessment performed: mobility impairment present- this mobility impairment is an ongoing problem. LEARNING NEEDS ASSESSMENT: A learning needs assessment was performed. Factors affecting the patient's ability to learn include cognitive limitations. SKIN INTEGRITY ASSESSMENT: Skin integrity risk assessment completed. No skin integrity risk identified. --09:09/17/20 Nisreen Kiran R.N. FAMILY HX: Unable to obtain family medical history due to the patient's altered mental status. --10:23 09/17/20 Ad Lawrence. Interventions Identification band on patient. To treatment room. --09:09/17/20 Nisreen Kiran R.N.PHYSICAL ASSESSMENT ( caregivers report frequency and pt not eating and is shaky). GENERAL / NEURO / PSYCH: Alert. ( decrease mental capacity). HEENT: Mucous membranes are pink. RESPIRATORY: Respirations not labored. Chest nontender. Breath sounds within normal limits. CVS: Normal sinus rhythm noted. Pulses within normal limits. GI / : Abdomen soft and nontender and normal bowel sounds. SKIN: Skin intact. Skin is warm and dry. Swelling (legs that is not new for pt). --09:43 09/17/20 Nisreen Kiran R.N.NURSING PROGRESS NOTES Patient gowned. Reassurance given. Two patient identifiers checked. Call light placed in reach. Side rails up x 2. Bed placed in lowest position. Brakes of bed on. Patient ready for evaluation. --09:43 09/17/20 Nisreen Kiran R.N. 10:36 09/17/2020 Ativan (LORazepam) IM 1 mg given. Given in the right deltoid. Allergies verified and confirmed 5 rights. Informa tion reviewed with patient including reason for taking this medication and sedative warning. Verbalizes understanding. --10:36 09/17/20 Keyla Vital R.N. 10:50 09/17/20. 16 fr wheat catheter placed in ED. Reason for indwelling catheter: retention. During procedure hand hygiene observed and sterile equipment and aseptic technique used. Return of less than 50 mL yellow-colored clear urine; attached to bedside drainage bag positioned below the bladder and secured with stabilization device. She tolerated procedure well. --11:05 09/17/20 Keyla Vital R.N. Patient transported to CT by stretcher with radiology specialist. Not transported from ED by wheelchair. --11:23 09/17/20 Nisreen Kiran R.N. 11:51 09/17/20. Patient returned from CT by stretcher with mask. --12:06 09/17/20 Keyla Vital R.N. 4 Clinical Report - Nurses [facility] Emergency Department [address] [place] [address] Phone #: ext- [phone] 09/17/2020 09:12 Patient: LEAH BRYANT Sex: F : 1970 Age: 50y 12:09/17/2020 Site #1 started via IV in the left antecubital space with an 20g angiocath, with aseptic technique and good blood return; one attempt. --12:21 09/17/20 Nisreen Kiran R.N. 12:22 09/17/2020 Started bag #1 1000 mL IV Fluids IV NS; bolus of 1000 mL over 1 hour(s) via site #1 via IV pump. Allergies verified and confirmed 5 rights. IV patency established. IV site checked: no pain, redness, or swelling. IV flushed thoroughly pre- and post-medication administration. Information reviewed with patient including reason for taking this medication, signs of allergic reaction and precautions. Verbalizes understanding. --12:22 09/17/20 Nisreen Kiran R.N. 13:14 09/17/2020 IV Fluids IV NS via IV site #1 Discontinued: bag #1 completed. Total amount infused: 1000 mL. IV patency established. IV site checked: no pain, redness, or swelling. IV flushed thoroughly. --13:14 09/17/20 Keyla Vital R.N. 13:00 09/17/20. BP: 116/75. MAP: 88. HR: 126. RR: 20. O2 saturation: 99%. --13:16 09/17/20 Keyla Vital R.N. The patient is calm and resting quietly and has had no adverse reaction. --13:16 09/17/20 Keyla Vital R.N. Patient returned from CT by stretcher with mask and tech. --14:23 09/17/20 Keyla Vital R.N. 14:08 09/17/20. Patient transported to CT by stretcher with mask and tech. --14:23 09/17/20 Keyla Vital R.N. 15:42 09/17/2020 Started bag #1 1000 mL IV Fluids IV NS; bolus of 1000 mL over 1 hour(s) via site #1 via IV pump. Allergies verified and confirmed 5 rights. IV patency established. IV site checked: no pain, redness, or swelling. IV flushed thoroughly pre- and post- medication administration. Information reviewed with patient including reason for taking this medication, signs of allergic reaction and precautions. Verbalizes understanding. --15:42 09/17/20 Nisreen Kiran R.N. 15:58 09/17/2020 Started 1 gm of ROCEPHIN (1GM/50ML) (cefTRIAXone Sodium) IVPB in bag #1 50 mL; at 100 mL/hr over 30 minute(s) via site #1. via IV pump. Allergies verified and confirmed 5 rights. IV patency established. IV site checked: no pain, redness, or swelling. IV flushed thoroughly pre- and post-medication administration. Information reviewed with patient including reason for taking this medication. --15:58 09/17/20 Keyla Vital R.N. Patient returned from [place] by stretcher with tech. --16:00 09/17/20 Keyla Vital R.N. 16:00 09/17/20. BP: 106/79. MAP: 88. HR: 138. RR: 18. O2 saturation: 98%. Temp: 98.5 F. --16:02 09/17/20 Keyla Vital R.N.DISPOSITION / DISCHARGE 17:00 09/17/2020 IV Fluids IV NS via IV site #1 Discontinued: bag #1 infused upon admission. Total 5 Clinical Report - Nurses [facility] Emergency Department [address] [place] [address] Phone #: [phone]- [phone] 09/17/2020 09:12 Patient: LEAH BRYANT Sex: F : 1970 Age: 50y amount infused: 50 mL. IV patency established. IV site checked: no pain, redness, or swelling. IV flushed thoroughly. --17:10 09/17/20 Keyla Vital R.N. 17:11 09/17/2020 Site #[address] upon admission; patent, no pain and no signs of infection or infiltration. Good blood return present. Converted to saline lock and flushed with 10 mL saline. --17:11 09/17/20 Keyla Vital R.N. 17:11 09/17/2020 ROCEPHIN (1GM/50ML) IVPB via IV site #1 Discontinued: bag #1 completed upon admission. Total amount infused: 50 mL. IV patency established. IV site checked: no pain, redness, or swelling. IV flushed thoroughly. --17:11 09/17/20 Keyla Vital R.N. Departure time: 17:00 09/17/2020. Condition at departure: improved and stable. Admitted to the Acute Inpatient Unit. Transported via stretcher by nurse with mask. Report was given to a nurse in person. Report included patient's care, allergies, condition, vital signs, labs, medications and IV's. All questions were answered. Report was acknowledged. (JAYE Almonte). Bed obtained and ready. --17:12 09/17/20 Keyla Vital R.N. 17:00 09/17/20. BP: 118/82. MAP: 94. HR: 130. RR: 18. O2 saturation: 100%. Temp: 98.4 F. Pain level now: cannot quantify. --17:12 09/17/20 Keyla Vital R.N.Locked/Released at 09/17/2020 17:12 by Keyla Vital R.N. Name Value Range Interpretation Code Description Data Poonam rce(s) Supporting Document(s) ID Date Data Source [id number] 09/17/2020 09:12:00 AM EDT [facility] 1 Clinical Report - Physicians/Mid Levels [facility] Emergency Department [address] [place] [address] Phone #: ext- [phone] 09/17/2020 09:12 Patient: LEAH BRYANT Sex: F : 1970 Age: 50y Time Seen: 10:09 09/17/2020. Arrived- By private vehicle. Historian- vice president payment. Disposition decision: 16:10 09/17/2020.HISTORY OF PRESENT ILLNESS Chief Complaint: VOMITING. falling. The patient has had vomiting (for 1 day). No diarrhea, black stools, bloody stools, abdominal pain or history of possible bad food exposure. No known contact with a sick individual. Has not recently been on antibiotics. Last bowel movement: today. Is still present. It has been constant. The illness is described as moderate. (Patient has been falling and unsteady for one week. Fell two nights ago and injured her lips. Found on floor of [facility]. Seen at PCP office earlier in week and today. Presumed urinary tract infection but no workup done. Shaky for several weeks. Vomited several times yesterday). Similar symptoms previously. Patient has had similar symptoms sever al times. Recent medical care: The patient was seen recently in the office.REVIEW OF SYSTEMSUnobtainable due to patient's poor comprehension. No fever, cough, difficulty breathing, skin rash ordiabetic symptoms. No easy bruising. She has had vomiting. She has had difficulty walking. All othersystems reviewed and are negative.PAST HISTORYSee nurses notes. Problems: Hypothyroidism. Moderate intellectual disability. Constipation [RuleOut]. Sinus Tachycardia [RuleOut]. Additional Surgeries: Knee Surgery. (Left knee ). Medications: LORazepam Oral (Tablet 1 mg) (2 MG IN AM AND 1 MG AT 1200). Linzess Oral (Capsule 145 mcg), daily. Synthroid Oral (Tablet 112 mcg), daily. 2 Clinical Report - Physicians/Mid Levels [facility] Emergency Department [address] [place] [address] Phone #: ext- [phone] 09/17/2020 09:12 Patient: LEAH BRYANT Sex: F : 1970 Age: 50y Ibuprofen Oral (Tablet 200 mg), as needed. guaiFENesin Oral (Solution 100 mg/5mL), as needed. Fexofenadine HCl Oral 180 mg, daily. Enema Rectal, as needed. Debrox Otic (Solution 6.5 %) 2 drops, monthly. Acetaminophen Oral (Tablet 325 mg) 2 tablets, as needed. Omeprazole Oral (Capsule Delayed Release 40 mg), daily. Baclofen 20mg in am and noon, 2 in pm. Colace Oral (Capsule 100 mg) 2 capsules, at bedtime. Cymbalta Oral (Capsule Delayed Release Particles 60 mg) 2 capsules, daily. FiberCon Oral (Tablet 625 mg) 1 tablet, 2x a day. Folic Acid Oral 1 mg, daily. Lactulose Oral (Solution 10 gm/15mL) 30ml, daily. Singulair Oral 10 mg, daily. Topamax Oral 200 mg, 2x a day. Tramadol HCL Oral 300mg, daily. Allergies: None.SOCIAL HISTORYNever smoker.FAMILY HISTORYUnable to obtain family medical history due to the patient's altered mental status.ADDITIONAL NOTESThe nursing notes have been reviewed.PHYSICAL EXAMVital Signs: 09/17/2020 09:24 BP: 135/82. MAP: 99. HR: 122. RR: 18. O2 saturation: 99% on room air.Temp: 97.5 F. Pain level now: 0/10.Appearance: Alert. (Restless.).Eyes: Eyes normal inspection.ENT: Nose normal. (eschar on upper and lower lip).Neck: Normal inspection. No carotid bruit or lymphadenopathy.CVS: Tachycardia. Pulses normal. No cardiac murmur.Respiratory: No respiratory distress. Painless inspiration.Abdomen: Soft. Tenderness in the suprapubic area. Bowel sounds no rmal. No organomegaly.Femoral pulses equal.Back: Normal inspection.Rectal: Rectal exam nontender. No digital exam tenderness. (small amount of soft stool).Skin: Skin warm. Normal skin color.Extremities: Bilateral mild pitting edema of the lower extremities. Extremities exhibit normal ROM.Neuro: No sensory deficit. (tremors in upper extremities). 3 Clinical Report - Physicians/Mid Levels [facility] Emergency Department [address] [place] [address] Phone #: [phone] 09/17/2020 09:12 Patient: LEAH BRYANT Sex: F : 1970 Age: 50yLABS, X-RAYS, AND EKGEKG: EKG time: 10:19 09/17/2020. Rate: 120. Tachycardia. Normal P waves. Normal QRS complex.Normal axis. Normal QT. Non-specific ST segment / T wave abnormalities. The study has beeninterpreted contemporaneously by me. Interpretation time: 10:09/17/2020.KUB: No acute disease. Gas pattern normal.Abdominal CT: Normal liver. No mass. No diverticulitis. dilated bladder. The study was interpreted bythe radiologist.Laboratory Tests: Lactic Acid: (LAKEISHA: 09/17/2020 15:25) ( MsgRcvd 09/17/2020 15:45) Final results Test Result Flag Units (Reference) LACTIC ACID 0.8 MMOL/L (0.2 - 2.2) COVID-19 CAH: (LAKEISHA: 09/17/2020 12:15) ( [facility] 09/17/2020 13:04) Final results Test Result Flag Units (Reference) COVID-19 NOT DETECTED COVID-19 REENTER NOT DETECTED { PROCEDURAL CONTROL VALID KIT LOT # _[id number] 09/17/20.1304.JNL. KIT EXP DATE _10/17/20 09/17/20.1304.JNL. NORMAL RANGE IS NOT DETECTEDNEGATIVE RESULTS SHOULD BE TREATED PRESUMPTIVE AND, IF INCONSISTENT WITHCLINICAL SIGNS AND SYMPTOMS OR NECESSARY FOR PATIENT MANAGEMENT, SHOULD BETESTED WITH DIFFERENT AUTHORIZED OR CLEARED MOLECULAR TESTS. NEGATIVE RESULTSDO NOT PRECLUDE SARS-CoV-2 INFECTION AND SHOULD NOT BE USED THE SOLE BASISFOR PATIENT MANAGEMENT DECISIONS. CT Abd PEL W/ IV Contrast Only: (LAKEISHA: 09/17/2020 12:01) ( [facility] 09/17/2020 14:26) In Progress CT ABD Reason(s): Abdominal Distention TRANSPORTATION: S IV? IV?(Yes) O2? Oxygen?(No) Ro CBC w Diff: (LAKEISHA: 09/17/2020 10:16) ( [facility] 09/17/2020 10:45) Final results Test Result Flag Units (Reference) CBC W/AUTOMATED DIFF COMPLETE BLOOD COUNT WBC 8.3 10/uL (4.2 - 11.0) RBC 3.74 L 10/uL (4.20 - 5.40) HEMOGLOBIN 11.2 L g/dL (12.0 - 16.0) HEMATOCRIT 35.0 L % (37.0 - 47.0) MCV 93.6 fL (81.0 - 101) MCH 29.9 pg (27.0 - 34.0) MCHC 32.0 g/dL (31.0 - 36.0) RDW 15.4 H % (11.5 - 14.5) PLATELETS 210 10/uL (150 - 450) MPV 11.2 H fL (7.4 - 10.4) NEUT 67.8 % (37.0 - 80.0) LYMPH 17.4 L % (25.0 - 40.0) MONO 14.3 H % (3.0 - 8.0) EOS 0.0 % (0.0 - 7.0) BASO 0.1 % (0.0 - 2.5) %IG 0.4 H % (0.0 - 0.0) %NRBC 0.0 % (0.0 - 0.0) #NEUT 5.65 10/uL (2.00 - 6.90) 4 Clinical Report - Physicians/Mid Levels [facility] Emergency Department [address] [place] [address] Phone #: ext- [phone] 09/17/2020 09:12 Patient: LEAH BRYANT Sex: F : 1970 Age: 50y #LYMPH 1.45 10/uL (0.60 - 3.40) #MONO 1.19 H 10/uL (0.00 - 0.90) #EOS 0.00 10/uL (0.00 - 0.70) #BASO 0.01 10/uL (0.00 - 0.20) #IG 0.03 10/uL (0.00 - 0.10) #NRBC 0.00 10/uL (0.00 - 0.00) MANUAL DIFF SEE BELOW SEGS 67 % (37 - 80) %LYMPH 27 % (25 - 40) %MONO 6 % (3 - 8) RBC MORPH SEE BELOW ANISO 1+ A (NORMAL: NONE { SICKLE CELL (NORMAL: NONE SEEN ) PLT EST NORMAL (NORMAL: MIHAELA COMMENT: CMP: (LAKEISHA: 09/17/2020 10:16) ( MsgRcvd 09/17/2020 10:46) Final results Test Result Flag Units (Reference) COMPREHENSIVE METABOLIC PANEL COMPREHENSIVE METABOLIC PANEL SODIUM 141 mEq/L (134 - 153) POTASSIUM 4.2 mEq/L (3.6 - 5.0) CHLORIDE 103 mEq/L (98 - 107) CO2 28 MEQ/L (22 - 30) GLUCOSE 93 MG/DL (70 - 99) BUN 19 MG/DL (7 - 21) CREATININE 0.7 MG/DL (0.7 - 1.5) BUN/CREAT 27 (8 - 27) TOTAL PROTEIN 7.6 G/DL (6.3 - 8.2) ALBUMIN 4.0 G/DL (3.9 - 5.0) GLOBULIN 3.6 H GM/DL (2.4 - 3.2) A/G RATIO 1.1 (0.8 - 2.0) CALCIUM 10.3 H MG/DL (8.4 - 10.2) TOTAL BILI <0.7 MG/DL (0.2 - 1.3) ALKALINE PHOS 184 H U/L (38 - 126) SGOT/AST 53 H U/L (5 - 40) SGPT/ALT 77 H U/L (7 - 56) ANION GAP 10.0 mmol/L (8.0 - 16.0) AGE 50 yrs NON- AA GFR >60 mL/min AFR AMER GFR >60 mL/min Male GFR Interprentation 20-49 yrs >60 mL/min Fpynij06-95 yrs >56 mL/min Normal 60- 69 yrs >49 mL/min Normal 70-79yrs>42 mL/min Normal 80 and above >35 mL/min Normal Female GFRInterpretation 20-39 yrs >60 mL/min Normal 40-49 yrs >58 mL/minNormal 50-59 yrs >51 mL/min Normal 60-69 yrs >45 mL/min Tyabzm00-08 yrs >39 mL/min Normal 80 and above >32 mL/min NormalUrinalysis: (LAKEISHA: 09/17/2020 11:00) ( [facility] 09/17/2020 11:39) Final results Test Result Flag Units (Reference) URINALYSIS URINALYSIS SOURCE R 5 Clinical Report - Physicians/Mid Levels [facility] Emergency Department [address] [place] [address] Phone #: ext- [phone] 09/17/2020 09:12 Patient: LEAH BRYANT Sex: F : 1970 Age: 50y COLOR yellow (NORMAL: Yello CLARITY cloudy (NORMAL: Clear SPEC GRAVITY 1.010 (1.001 - 1.030 pH 7 (5 - 9) GLUCOSE NORM (NORMAL: Negat BILIRUBIN NEG (NORMAL: Negat KETONE 5 A (NORMAL: Negat PROTEIN 15 (NORMAL: Negat NITRITE NEG (NORMAL: Negat BLOOD 25 A (NORMAL: Negat LEUK EST 500 A (NORMAL: Negat UROBILINOGEN NOR (less than 1.0 MICROSCOPIC See Below WBC 5 - 7 A (NORMAL: NONE RBC 1 - 3 (NORMAL: NONE EPITHELIAL MODERATE A (NORMAL: NONE BACTERIA 2+ MOD A (NORMAL: NONE MUCOUS 1+ (NORMAL: NONE AMORPH SED 2+ (NORMAL: NONE Lipase: (LAKEISHA: 09/17/2020 10:16) ( [facility] 09/17/2020 10:44) Final results Test Result Flag Units (Reference) LIPASE 15 U/L (13 - 60) Abdomen Multiview: (LAKEISHA: 09/17/2020 10:05) ( MsgRcvd 09/17/2020 15:25) In Progress ABDOMEN MULTIPLE VIEW Reason(s): Abdominal Distention TRANSPORTATION: S IV? O2? Oxygen?(No) Room: ED CT Head W/O Cont: (LAKEISHA: 09/17/2020 10:05) ( MsgRcvd 09/17/2020 13:01) In Progress CT HEAD W/O CONTRAST Reason(s): Head Injury TRANSPORTATION: WC IV? O2? Oxygen?(No) Room: ED.PROGRESS AND PROCEDURESCourse of Care: 10:27 09/17/20. Possible constipation, urinary tract infection, urinary retention, ativanwithdrawal 12:57 09/17/20. Patient still tachycardic. No clear evidence of urinary obstruction or pyelonephritis. Mild cystitis. Abdomen is non- surgical but persistent lower abdominal fullness 16:25 09/17/20. no elevated lactate. No signs of dehydration to explain the tachycardia. Ct scan shows no acute intra-abdominal process. Findings discussed with Dr. Agarwal. Critical care performed (35 minutes). Time is exclusive of separately billable procedures. Time includes: direct patient care, patient reassessment and medical consultation. Old medical records ordered. Patient has had multiple ED visits. 6 Clinical Report - Physicians/Mid Levels [facility] Emergency Department [address] [place] [address] Phone #: ext- [phone] 09/17/2020 09:12 Patient: LEAH BRYANT Sex: F : 1970 Age: 50y Disposition: Observation in the Acute Inpatient Unit.CLINICAL IMPRESSION Sinus tachycardia. Acute urinary tract infection with cystitis. No pyelonephritis or hematuria.(Electronically signed by Ad Lawrence 09/17/2020 17:56) Name Value Range Interpretation Code Description Data Poonam rce(s) Supporting Document(s) ID Date Data Source [id number] 09/17/2020 09:12:00 AM EDT [facility] LEAH Khalil VisitID: [id number] Date: 16:42Med rec request worksheet faxed to [employer] with t-system overview and paitents homemedication rec. @ [id number]-system overview faxed to [place] [id number] confirmed recipt with Stacy(Electronically signed by Long Gonsalez - 09/17/2020 16:42) Name Value Range Interpretation Code Description Data Poonam rce(s) Supporting Document(s) ID Date Data Source [id number] 09/22/2020 06:12:00 PM EDT [facility] [address] Name Value Range Interpretation Code Description Data Poonam rce(s) Supporting Document(s) Bacteria identified in Blood by Culture [facility] NO GROWTH AFTER 5 DAYS ID Date Data Source [id number] 09/23/2020 01:56:00 PM EDT [facility] Name Value Range Interpretation Code Description Data Poonam rce(s) Supporting Document(s) CULTURE BLOOD [facility] _CULTURE BLOOD_ TEST PERFORM ED AT [address] [address] CLIA# [id number] SEE SCANNED REPORT{ PRELIM ID Date Data Source [id number] 09/23/2020 01:56:00 PM EDT [facility] Name Value Range Interpretation Code Description Data Poonam rce(s) Supporting Document(s) CULTURE BLOOD [facility] _CULTURE BLOOD_ TEST PERFORM ED AT [address] [address] CLIA# [id number] SEE SCANNED REPORT{ PRELIM ID Date Data Source [id number] 09/17/2020 03:45:00 PM EDT [facility] Name Value Range Interpretation Code Description Data Poonam rce(s) Supporting Document(s) Lactate [Moles/volume] in Serum or Plasma 0.8 MMOL/L 0.2 - 2.2 [facility] ID Date Data Source [id number] 09/17/2020 12:15:00 PM EDT [facility] Name Value Range Interpretation Code Description Data Poonam rce(s) Supporting Document(s) COVID19 Case rprt NOT DETECTED [facility] This lab was ordered by [facility] and reported by [facility]. ID Date Data Source [id number] 09/17/2020 01:04:00 PM EDT [facility] NOT DETECTEDNOT DETECTED{ PROC EDURAL CONTROL VALID KIT LOT # _[id number] 09/17/20.1304.JNL. KIT EXP DATE _10/17/20 09/17/20.1304.JNL. NORMAL RANGE IS NOT DETECTEDNEGATIVE RESULTS SHOULD BE TREATED PRESUMPTIVE AND, IF INCONSISTENT WITHCLINICAL SIGNS AND SYMPTOMS OR NECESSARY FOR PATIENT MANAGEMENT, SHOULD BETESTED WITH DIFFERENT AUTHORIZED OR CLEARED MOLECULAR TESTS. NEGATIVE RESULTSDO NOT PRECLUDE SARS-CoV-2 INFECTION AND SHOULD NOT BE USED THE SOLE BASISFOR PATIENT MANAGEMENT DECISIONS. Name Value Range Interpretation Code Description Data Poonam rce(s) Supporting Document(s) ID Date Data Source [id number] 09/22/2020 01:38:00 PM EDT [facility] Name Value Range Interpretation Code Description Data Poonam rce(s) Supporting Document(s) CULTURE URINE [facility] Gunnar khantal _CULTURE URINE_$$[id number]$$[id number]$$[id number]$$[id number]$$[id number]$$[id number]$$[id number]$$[id number]$$[id number]$$ [id number]$$[id number]$$[id number]$$[id number]$$[id number]$$[id number]$$430973$$223036$$787864$$205189$$ 026107$$432450$$352430$$524446$$[id number]$$[id number]$$[id number]$$[id number] -- Continued on next page --Patient: SHIVANI Lopez Order: Page 2Culture: CULTURE URINE Status: Final ==== -- Continued on next page --Patient: SHIVANI Lopez Order: Page 2Culture: CULTURE URINE Status: Prelim ===== -- Continued on next page --Patient: SHIVANI Lopez Order: Page 2Culture: CULTURE URINE Status: Prelim =====$$[id number]$$[id number] DATE/TIME: 09/22/2020 12:06Culture: CULTURE URINE Status: FinalIsolate 1 Klebsiella oxytoca Flag: A . . . . . . .4Greater than 100,000 colony forming units per mL Previous result entered on 09/21/2020 12:33 ET Gram negative rods Previous result entered on 09/19/2020 02:23 ET Specimen has been received and testing has been initiated.Urine Culture,Comprehensive: [id number] oxytoca Flag: AIsolate 2 Escherichia coli Flag: A . . . . . . .1Greater than 100,000 colony forming units per mLCefazolin <=4 ug/mLCefazolin with an MAXIMUS <=16 predicts susceptibility to the oral agentscefaclor, cefdinir, cefpodoxime, cefprozil, cefuroxime, cephalexin,and loracarbef when used for therapy of uncomplicated urinary tractinfections due to E. coli, Klebsiella pneumoniae, and Proteusmirabilis. Previous result entered on 09/21/2020 12:33 ET Gram negative rodsEscherichia coli Flag: AIsolate [address] reptococcus, group B Flag: A . . . . . . .425,000-50,000 colony forming units per mLPenicillin and ampicillin are drugs of choice for treatment ofbeta-hemolytic streptococcal infections. Susceptibility testing of -- Continued on next page --Patient: SHIVANI Lopez Order: Page 3Culture: CULTURE URINE Status: Final ====penicillins and other beta-lactam agents approved by the FDA fortreatment of beta-hemolytic streptococcal infections need not beperformed routinely because nonsusceptible isolates are extremelyrare in any beta-hemolytic streptococcus and have not been reportedfor Streptococcus pyogenes (group A). (CLSI) Previous result entered on 09/21/2020 12:33 ET Microbiological testing to rule out the presence of possible pathogensis in progress.Beta hemolytic Streptococcus, group B Flag: APatient: SHIVANI Lopez Order: Page 4Culture: CULTURE URINE Status: Final ====ISOLATE 1 Klebsiella oxytocaISOLATE 2 Escherichia coli Isolate 1 Isolate 2Antibiotic MAXIMUS Int MAXIMUS IntUnits ug/mL ug/mL Amoxicillin/Clavulanic Acid S S Ampicillin R R Cefepime S S Ceftriaxone S S Cefuroxime S S Ciprofloxacin S S Ertapenem S S Gentamicin S S Imipenem S S Levofloxacin S S Meropenem S S Nitrofurantoin S S Piperacillin/Tazobactam Tetracycline S S Tobramycin S S Trimethoprim/Sulfa S S P1 Test performed by: [facility] #: [id number] [address] [place] [address] [id number] [facility] [id number] Director : Neil Estrada MD NPI #:Health Science Writer : 09/20/20.0629.XMT.SENT REF 09/21/20.1335.XMT.SENT REF 09/21/20.1337.XMT.SENT REF 09/22/20.1338.XMT.SENT REF ID Date Data Source [id number] 09/17/2020 11:38:00 AM EDT [facility] Name Value Range Interpretation Code Description Data Poonam rce(s) Supporting Document(s) [facility] yellow NORMAL: Yellow [facility] CLARITY cloudy NORMAL: Clear [facility] Specific gravity of Urine by Test strip 1.010 1.001 - 1.030 [facility] pH 7 5 - 9 [facility] Glucose [Mass/volume] in Urine by Test strip NORM NORMAL: Negat [facility] Bilirubin.total [Presence] in Urine by Test strip NEG NORMAL: Negative [facility] Ketones [Presence] in Urine by Test strip 5 NORMAL: Negative [facility] Protein [Mass/volume] in Urine by Test strip 15 NORMAL: Negat [facility] Nitrite [Presence] in Urine by Test strip NEG NORMAL: Negative [facility] BLOOD 25 NORMAL: Negative [facility] Leukocyte esterase [Presence] in Urine by Test strip 500 MIHAELA L: Negative [facility] Urobilinogen [Mass/volume] in Urine by Test strip NOR less pieter n 1.0 mg/dL [facility] MICROSCOPIC See Below [facility] ital WBC 5 - 7 NORMAL: NONE SEEN A [facility] Erythrocytes [#/volume] in Urine by Test strip 1 - 3 NORMAL: NON E SEEN [facility] EPITHELIAL MODERATE NORMAL: NONE SEEN A [facility] Bacteria [Presence] in Urine sediment by Light microscopy 2+ MOD NORMAL: NONE SEEN A [facility] Mucus [Presence] in Urine sediment by Light microscopy 1+ NOR MAL: NONE SEEN [facility] Amorphous sediment [Presence] in Urine sediment by Light maximus roscopy 2+ NORMAL: NONE SEEN [facility] ID Date Data Source [id number] 09/17/2020 06:46:00 PM EDT [facility] Name Value Range Interpretation Code Description Data Poonam rce(s) Supporting Document(s) TROPONIN T <0.01 NG/ML 0.00 - 0.10 [facility] ospital TROPONIN T0.1 ng/ml Recommended as the c linical threshold value forTroponin T. ID Date Data Source [id number] 09/17/2020 06:38:00 PM EDT [facility] Name Value Range Interpretation Code Description Data Poonam rce(s) Supporting Document(s) BNP 32 PG/ML 0 - 125 [facility] ID Date Data Source [id number] 09/17/2020 06:33:00 PM EDT [facility] Name Value Range Interpretation Code Description Data Poonam rce(s) Supporting Document(s) Magnesium [Mass/volume] in Serum or Plasma 1.6 MG/DL 1.7 - 2.2 L [facility] ID Date Data Source [id number] 09/17/2020 10:46:00 AM EDT [facility] Name Value Range Interpretation Code Description Data Poonam rce(s) Supporting Document(s) COMPREHENSIVE METABOLIC PANEL [facility] COMPREHENSIVE METABOLIC PANEL Sodium [Moles/volume] in Serum or Plasma 141 mEq/L 134 - 153 [facility] Potassium [Moles/volume] in Serum or Plasma 4.2 mEq/L 3.6 - 5.0 [facility] Chloride [Moles/volume] in Serum or Plasma 103 mEq/L 98 - 107 [facility] Carbon dioxide, total [Moles/volume] in Serum or Plasma 28 MEQ/L 22 - 30 [facility] Glucose [Mass/volume] in Serum or Plasma 93 MG/DL 70 - 99 [facility] BUN 19 MG/DL 7 - 21 [facility] Creatinine [Mass/volume] in Serum or Plasma 0.7 MG/DL 0.7 - 1.5 [facility] BUN/CREAT 27 8 - 27 [facility] al Protein [Mass/volume] in Serum or Plasma 7.6 G/DL 6.3 - 8.2 [facility] Albumin [Mass/volume] in Serum or Plasma 4.0 G/DL 3.9 - 5.0 [facility] Globulin [Mass/volume] in Serum by calculation 3.6 GM/DL 2.4 - 3.2 H [facility] A/G RATIO 1.1 0.8 - 2.0 [facility] Calcium [Mass/volume] in Serum or Plasma 10.3 MG/DL 8.4 - 10.2 H [facility] Bilirubin.total [Mass/volume] in Serum or Plasma <0.7 MG/DL 0.2 - 1.3 [facility] Alkaline phosphatase [Enzymatic activity/volume] in Serum or Plasma 184 U/L 38 - 126 H [facility] Aspartate aminotransferase [Enzymatic activity/volume] in Serum or Plasma 53 U/L 5 - 40 H [facility] Alanine aminotransferase [Enzymatic activity/volume] in Seru m or Plasma 77 U/L 7 - 56 H [facility] Anion gap 3 in Serum or Plasma 10.0 mmol/L 8.0 - 16.0 [facility] AGE 50 yrs [facility] al NON-AA GFR >60 mL/min [facility] ital AFR AMER GFR >60 mL/min [facility] spital Male GFR In terprentation 20-49 yrs >60 mL/min Normal 50-59 yrs >56 mL/min Normal 60-69 yrs >49 mL/min Normal 70-79yrs >42 mL/min Normal 80 and above >35 mL/min Normal Female GFR Interpretation 20-39 yrs >60 mL/min Normal 40-49 yrs >58 mL/min Normal 50-59 yrs >51 mL/min Normal 60-69 yrs >45 mL/min Normal 70-79 yrs >39 mL/min Normal 80 and above >32 mL/min Normal ID Date Data Source [id number] 09/17/2020 10:45:00 AM EDT [facility] Name Value Range Interpretation Code Description Data Poonam rce(s) Supporting Document(s) CBC W/AUTOMATED DIFF [facility] COMPLETE BLOOD COUNT Leukocytes [#/volume] in Blood by Automated count 8.3 10^3/uL 4.2 - 1 1.0 [facility] Erythrocytes [#/volume] in Blood by Automated count 3.74 10^6/uL 4. 20 - 5.40 L [facility] Hemoglobin [Mass/volume] in Blood 11.2 g/dL 12.0 - 16.0 L [facility] Hematocrit [Volume Fraction] of Blood by Automated count 35.0 % 3 7.0 - 47.0 L [facility] Erythrocyte mean corpuscular volume [Entitic volume] by Auto mated count 93.6 fL 81.0 - 101 [facility] Erythrocyte mean corpuscular hemoglobin [Entitic mass] by Automated count 29.9 pg 27.0 - 34.0 [facility] Erythrocyte mean corpuscular hemoglobin concentration [Mass/volume] by Automated count 32.0 g/dL 31.0 - 36.0 [facility] Erythrocyte distribution width [Ratio] by Automated count 15.4 % 11.5 - 14.5 H [facility] Platelets [#/volume] in Blood by Automated count 210 10^3/uL 150 - 45 0 [facility] Platelet mean volume [Entitic volume] in Blood by Automated count 11.2 fL 7.4 - 10.4 H [facility] Neutrophils/100 leukocytes in Blood by Automated count 67.8 % 37. 0 - 80.0 [facility] Lymphocytes/100 leukocytes in Blood by Manual count 17.4 % 25.0 - 40.0 L [facility] Monocytes/100 leukocytes in Blood by Automated count 14.3 % 3.0 - 8.0 H [facility] Eosinophils/100 leukocytes in Blood by Automated count 0.0 % 0.0 - 7.0 [facility] Basophils/100 leukocytes in Blood by Automated count 0.1 % 0.0 - 2.5 [facility] %IG 0.4 % 0.0 - 0.0 H [facility] al %NRBC 0.0 % 0.0 - 0.0 [facility] Neutrophils [#/volume] in Blood by Automated count 5.65 10^3/uL 2.00 - 6.90 [facility] Lymphocytes [#/volume] in Blood by Automated count 1.45 10^3/uL 0.60 - 3.40 [facility] Monocytes [#/volume] in Blood by Automated count 1.19 10^3/uL 0.00 - 0.90 H [facility] Eosinophils [#/volume] in Blood by Automated count 0.00 10^3/uL 0.00 - 0.70 [facility] Basophils [#/volume] in Blood by Automated count 0.01 10^3/uL 0.00 - 0.20 [facility] #IG 0.03 10^3/uL 0.00 - 0.10 [facility] #NRBC 0.00 10^3/uL 0.00 - 0.00 [facility] ospital MANUAL DIFF SEE BELOW [facility] ital Segmented neutrophils/100 leukocytes in Blood by Manual count 67 % 37 - 80 [facility] Hospital %LYMPH 27 % 25 - 40 [facility] al %MONO 6 % 3 - 8 [facility] al RBC MORPH SEE BELOW [facility] al Anisocytosis [Presence] in Blood by Light microscopy 1+ MIHAELA L: NONE SEEN A [facility] { SICKLE CELL (NORMAL: NONE SEEN ) Platelet adequacy [Presence] in Blood by Light microscopy NORMAL NORMAL: NORMAL [facility] COMMENT: ID Date Data Source [id number] 09/17/2020 10:44:00 AM EDT [facility] Name Value Range Interpretation Code Description Data Poonam rce(s) Supporting Document(s) Lipase [Enzymatic activity/volume] in Serum or Plasma 15 U/L 13 - 60 [facility] ID Date Data Source [id number] 06/30/2020 07:52:00 AM [facility] Name Value Range Interpretation Code Description Data Poonam rce(s) Supporting Document(s) IRON (FE) 99 UG/DL Normal IRON (FE) [place] ([facility]) TOTAL IRON BINDING CAPACITY 194 UG/DL Below low nor mal TOTAL IRON BINDING CAPACITY [place] ([facility]) PERCENT SATURATION 51.0 % Above high normal PERCENT SA TURATION [place] ([facility]) ID Date Data Source [id number] 06/30/2020 07:52:00 AM [facility] ([facility] Name Value Range Interpretation Code Description Data Poonam rce(s) Supporting Document(s) Reported Physicians See Note Reported Physici ans [place] ([facility]) Note: Reported Physicians:Ordering: CHRISTIANNE STOCK [id number], EVELYN MDFRCPAttending: ARNETT, TARIQCopy To: ARNETT, TARIQCopy To: [place] Amaya ID Date Data Source [id number] 06/30/2020 07:52:00 AM [facility] ([facility]) Name Value Range Interpretation Code Description Data Poonam rce(s) Supporting Document(s) Ferritin [Interpretation] in Blood 828 NG/ML Above high n ormal FERRITIN [place] ([facility]) ID Date Data Source [id number] 06/30/2020 07:52:00 AM EST [place] ([facility]) Name Value Range Interpretation Code Description Data Poonam rce(s) Supporting Document(s) Reported Physicians See Note Reported Physici ans [place] ([facility]) Note: Reported Physicians:Ordering: CHRISTIANNE STOCK [id number], EVELYN LOFRCPAttending: ARNETT, TARIQCopy To: ARNETT, TARIQCopy To: [place] Amaya ID Date Data Source [id number] 06/30/2020 07:52:00 AM EST [place] ([facility]) Name Value Range Interpretation Code Description Data Poonam rce(s) Supporting Document(s) WHITE BLOOD COUNT 6.0 3/uL Normal WHITE BLOOD COUNT [place] ([facility]) RED BLOOD COUNT 3.78 6/uL Below low normal RED BLOOD COUN T [facility]) Hemoglobin [Mass/volume] in Mixed venous blood by Oximetry 10.7 g/dl Below low normal HEMOGLOBIN [place] ([facility]) Hematocrit [Pure volume fraction] of Blood by Automated count 35 .7 % Below low normal HEMATOCRIT [facility]) MEAN CORPUSCULAR VOLUME 94.4 fl Normal MEAN CORPUSC ULAR VOLUME [place] ([facility]) MEAN CORPUSCULAR HEMOGLOBIN 28.3 pg Normal MEAN COR PUSCULAR HEMOGLOBIN [facility]) RED CELL DISTRIBUTION WIDTH 15.7 % Above high no rmal RED CELL DISTRIBUTION WIDTH [facility]) MEAN CORPUSCULAR HGB CONC 30.0 g/dl Below low mihaela l MEAN CORPUSCULAR HGB CONC [place] ([facility]) PLATELET COUNT, AUTOMATED 232 3/uL Normal PLATELET C OUNT, AUTOMATED [place] ([facility]) LYMPH % 46.6 % Above high normal LYMPH % [facility] ([facility]) NEUTROPHILS % 42.4 % Normal NEUTROPHILS % [place] ([facility]) MONO % 9.2 % Above high normal MONO % [place] ([facility]) EOS % 1.3 % Normal EOS % [place] ([facility]) BASO % 0.3 % Normal BASO % [place] ([facility]) IMMATURE GRANULOCYTE % 0.2 % Normal IMMATURE GRAN ULOCYTE % [place] ([facility]) NUCLEATED RED BLOOD CELL % 0.0 % Normal NUCLEATED RED BLOOD CELL % [place] ([facility]) NEUTROPHILS # 2.5 3/uL Normal NEUTROPHILS # [place] ([facility]) LYMPH # 2.8 3/uL Normal LYMPH # [place] ([facility]) MONO # 0.6 3/uL Normal MONO # [place] ([facility]) EOS # 0.1 3/uL Normal EOS # [place] ([facility]) BASO # 0.0 3/uL Normal BASO # [place] ([facility]) ID Date Data Source [id number] 06/30/2020 07:52:00 AM [facility] ([facility]) Name Value Range Interpretation Code Description Data Poonam rce(s) Supporting Document(s) Reported Physicians See Note Reported Physici ans [place] ([facility]) Note: Reported Physicians:Ordering: CHRISTIANNE IQUI [phone], EVELYN MDFRCPAttending: ARNETT, TARIQCopy To: MELQUIADES TARIQCopy To: [place] Amaya ID Date Data Source [id number] 04/18/2020 08:37:00 AM EST [place] ([facility]) Name Value Range Interpretation Code Description Data Poonam rce(s) Supporting Document(s) Reported Physicians See Note [facility] Note: Reported Physicians:Ordering: Rogelio Barriga JAttending: ROGELIO MANSFIELDConsulting: CUBA AMAYACopten To: ROGELIO MANSFIELDCopten To: [place] Amaya ID Date Data Source [id number] 04/18/2020 08:37:00 AM [facility] ([facility]) Name Value Range Interpretation Code Description Data Poonam rce(s) Supporting Document(s) Prolactin [Mass/volume] in Serum or Plasma by 3rd IS 53.6 ng/mL Above high normal Prolactin [facility]) Note: Responsible Observer: (rfl) ID Date Data Source [id number] 04/18/2020 08:37:00 AM EST [place] ([facility]) Name Value Range Interpretation Code Description Data Poonam rce(s) Supporting Document(s) Reported Physicians See Note Reported Physic ans [place] ([facility]) Note: Reported Physicians:Ordering: Pierre Barrigaeb JAttending: PIERRE MANSFIELDEBConsulting: JOSE LUIS JOCELYNCopy To: DONAL CALEBCopy To: Jose Luis [place] ID Date Data Source [id number] 04/18/2020 08:37:00 AM EST [place] ([facility]) Name Value Range Interpretation Code Description Data Poonam rce(s) Supporting Document(s) HGB A1C 5.4 % HGB A1C [place] ([facility]) Note: {A1]{HB]Responsible Observer: (CM ) ID Date Data Source [id number] 04/18/2020 08:37:00 AM EST [place] ([facility]) Name Value Range Interpretation Code Description Data Poonam rce(s) Supporting Document(s) Reported Physicians See Note Reported [facility] ([facility]) Note: Reported Physicians:Ordering: Karson nunez Rogelio JAttending: ROGELIO MANSFIELDConsulting: TRINO AMAYACELYNCopy To: DONAL CALEBCopy To: Jose Luis [place] ID Date Data Source [id number] 04/18/2020 08:37:00 AM EST [place] ([facility]) Name Value Range Interpretation Code Description Data Poonam rce(s) Supporting Document(s) A/G RATIO 1.6 A/G RATIO [place] ([facility]) Note: Responsible Observer: (CM) AFR AMER GFR >60 mL/min AFR AMER GFR [place] ([facility]) Note: Male GFR Interprentation 20- 49 yrs >60 mL/min Normal 50-59 yrs >56 mL/min Normal 60-69 yrs >49 mL/min Normal 70- 79yrs >42 mL/min Normal 80 and above >35 mL/min Normal Female GFR Interpretation 20-39 yrs >60 mL/min Normal 40-49 yrs >58 mL/min Normal 50-59 yrs >51 mL/min Normal 60-69 yrs >45 mL/min Normal 70-79 yrs >39 mL/min Normal 80 and above >32 mL/min NormalResponsible Observer: (CM) Egg donor age 50 yrs AGE [place] ([facility]) Note: Responsible Observer: (CM) Albumin [Mass/volume] in Blood by Bromocresol purple ( BCP) dye binding method 4.0 G/DL ALBUMIN [place] ([facility]) Note: Responsible Observer: (CM) ALKALINE PHOS 110 U/L ALKALINE PHOS [place] ([facility]) Note: Responsible Observer: (CM) Anion gap in Body fluid 4.0 mmol/L Below low normal ANION GAP [place] ([facility]) Note: Responsible Observer: (CM) BUN 16 MG/DL BUN [place] ([facility]) Note: Responsible Observer: (CM) BUN/CREAT 20 BUN/CREAT [place] ([facility]) Note: Responsible Observer: (CM) Calcium [Moles/volume] in Urine collected for unspecified durati on 10.1 MG/DL CALCIUM [place] ([facility]) Note: Responsible Observer: (CM) Chloride [Moles/volume] in Serum, Plasma or Blood 107 mEq/L CHLORIDE [place] ([facility]) Note: Responsible Observer: (CM) CO2 32 MEQ/L Above high normal CO2 [place] ([facility]) Note: Responsible Observer: (CM) COMPREHENSIVE METABOLIC PANEL See Note COMPRE HENSIVE METABOLIC PANEL [place] ([facility]) Note: COMPREHENSIVE METABOLIC PANELR esponsible Observer: (CM) Creatinine [Moles/volume] in Vitreous fluid 0.8 MG/DL CREATININE [place] ([facility]) Note: Responsible Observer: (CM) Globulin [Mass/time] in 24 hour Urine 2.5 GM/DL GLOBULIN [place] ([facility]) Note: Responsible Observer: (CM) Glucose [Mass/volume] in Urine collected for unspecified duration 9 4 MG/DL GLUCOSE [place] ([facility]) Note: Responsible Observer: (CM) NON-AA GFR >60 mL/min NON-AA GFR [place] ([facility]) Note: Responsible Observer: (CM) Potassium [Mass/volume] in Blood 4.8 mEq/L POT ASSIUM [place] ([facility]) Note: Responsible Observer: (CM) SGOT/AST 32 U/L SGOT/AST [place] ([facility]) Note: Responsible Observer: (CM) SGPT/ALT 50 U/L SGPT/ALT [place] ([facility]) Note: Responsible Observer: (CM) Sodium [Moles/volume] in Serum, Plasma or Blood 143 mEq/L SODIUM [place] ([facility]) Note: Responsible Observer: (CM) TOTAL BILI <0.7 MG/DL TOTAL BILI [place] ([facility]) Note: Responsible Observer: (CM) TOTAL PROTEIN 6.5 G/DL TOTAL PROTEIN [place] ([facility]) Note: Responsible Observer: (CM) ID Date Data Source [id number] 04/18/2020 08:37:00 AM EST [place] ([facility]) Name Value Range Interpretation Code Description Data Poonam rce(s) Supporting Document(s) Reported Physicians See Note Reported Physici ans [place] ([facility]) Note: Reported Physicians:Ordering: Rogelio Barriga JAttending: ROGELIO MANSFIELDConsulting: CUBA AMAYACopten To: ROGELIO MANSFIELDCopten To: [place] Amaya ID Date Data Source [id number] 04/18/2020 08:37:00 AM EST [place] ([facility]) Name Value Range Interpretation Code Description Data Poonam rce(s) Supporting Document(s) Cholesterol [Moles/volume] in Pericardial fluid 244 MG/DL Above high normal CHOLESTEROL [place] ([facility]) Note: Responsible Observer: (CM) CVE PANEL See Note CVE PANEL [place] ([facility]) Note: LIPID PANELResponsible Observe r: (CM) HDL 80 MG/DL HDL [place] ([facility]) Note: Responsible Observer: (CM) Cholesterol in LDL [Mass/volume] in Serum or Plasma by Direct as say 141 mg/dL LDL [place] ([facility]) Note: Responsible Observer: (CM) LDL/HDL 1.76 LDL/HDL [place] ([facility]) Note: CVE RISK CHOL/HD L LDL/HDLMEN: 1/2 AVERAGE 3.43 1.00 AVERAGE 4.97 3.55 2X AVERAGE 9.55 6.25 3X AVERAGE 23.99 7.99WOMEN: 1/2 AVERAGE 3.27 1.47 AVERAGE 4.44 3.22 2X AVERAGE 7.05 5.03 3X AVERAGE 11.04 6.14Responsible Observer: (CM) RISK FACTOR 3.1 Below low normal RISK FACTOR [place] ([facility]) Note: Responsible Observer: (CM) TRIGLYCERIDES 74 MG/DL TRIGLYCERIDES [place] ([facility]) Note: Responsible Observer: (CM) ID Date Data Source [id number] 04/18/2020 08:37:00 AM EST [place] ([facility]) Name Value Range Interpretation Code Description Data Poonam rce(s) Supporting Document(s) Reported Physicians See Note Reported Physici ans [place] ([facility]) Note: Reported Physicians:Ordering: Rogelio Barriga JAttending: ROGELIO MANSFIELDConsulting: CUBA AMAYACopten To: Mekhi MANSFIELD To: [place] Amaya ID Date Data Source [id number] 04/18/2020 08:37:00 AM EST [place] ([facility]) Name Value Range Interpretation Code Description Data Poonam rce(s) Supporting Document(s) #BASO 0.04 10\\^3/uL #BASO [place] ([facility]) Note: Responsible Observer: (CM) #EOS 0.05 10\\^3/uL #EOS [place] ([facility]) Note: Responsible Observer: (CM) #IG 0.00 10\\^3/uL #IG [place] ([facility]) Note: Responsible Observer: (CM) #LYMPH 2.75 10\\^3/uL #LYMPH [place] ([facility]) Note: Responsible Observer: (CM) #MONO 0.39 10\\^3/uL #MONO [place] ([facility]) Note: Responsible Observer: (CM) #NEUT 1.35 10\\^3/uL Below low normal #NEUT [address] ([facility] [facility] Note: Responsible Observer: (CM) #NRBC 0.00 10\\^3/uL #NRBC [facility] ([facility]) Note: Responsible Observer: (CM) %IG 0.0 % %IG [facility] ([facility]) Note: Responsible Observer: (CM) %NRBC 0.0 % %NRBC [facility] ([facility]) Note: Responsible Observer: (CM) BASO 0.9 % BASO [facility] ([facility]) Note: Responsible Observer: (CM) CBC W/AUTOMATED DIFF See Note CBC W/AUTOMATED DIFF [facility] ([facility]) Note: COMPLETE BLOOD COUNTResponsibl e Observer: (CM) EOS 1.1 % EOS [facility] ([facility]) Note: Responsible Observer: (CM) Hematocrit [Pure volume fraction] of Blood by Automated count 36 .5 % Below low normal HEMATOCRIT VANESSA ([facility]) Note: Responsible Observer: (CM) Hemoglobin [Mass/volume] in Mixed venous blood by Oximetry 11.3 g/dL Below low normal HEMOGLOBIN [facility]ANESSA ([facility]) Note: Responsible Observer: (CM) LYMPH 60.0 % Above high normal LYMPH [facility] ([facility]) Note: Responsible Observer: (CM) MANUAL DIFF NOT INDICATED MANUAL DIFF [facility]SA ([facility]) Note: Responsible Observer: (CM) MCH 29.0 pg MCH [facility] ([facility]) Note: Responsible Observer: (CM) MCHC 31.0 g/dL MCHC V[facility] ([facility]) Note: Responsible Observer: (CM) MCV 93.8 fL MCV V[facility] ([facility]) Note: Responsible Observer: (CM) MONO 8.5 % Above high normal MONO V[facility] ([facility]) Note: Responsible Observer: (CM) MPV 10.5 fL Above high normal MPV [facility] ([facility]) Note: Responsible Observer: (CM) NEUT 29.5 % Below low normal NEUT [facility] ([facility]) Note: Responsible Observer: (CM) Platelets [#/area] in Blood by Microscopy high power field 246 10\\^ 3/uL PLATELETS [place] ([facility]) Note: Responsible Observer: (CM) RBC 3.89 10\\^6/uL Below low normal RBC [place] ([facility]) Note: Responsible Observer: (CM) RBC MORPH NOT INDICATED RBC MORPH [facility]SA ([facility]) Note: Responsible Observer: (CM) RDW 13.8 % RDW [facility] ([facility]) Note: Responsible Observer: (CM) WBC 4.6 10\\^3/uL WBC [place] ([facility]) Note: Responsible Observer: (CM) ID Date Data Source [id number] 04/18/2020 08:37:00 AM EST [facility] ([facility]) Name Value Range Interpretation Code Description Data Poonam rce(s) Supporting Document(s) Prolactin [Mass/volume] in Serum or Plasma 53.6 ng/mL 4.8-2 3.3 Above high normal [facility] ([facility]) Is patient fasting? Y ID Date Data Source [id number] 04/18/2020 08:37:00 AM EST [facility] ([facility]) Name Value Range Interpretation Code Description Data Poonam rce(s) Supporting Document(s) Cve Panel Laboratory test result [facility] ([facility]) Is patient fasting? Y Triglycerides 74 mg/dL 35-160 [facility] ([facility]) Is patient fasting? Y Cholesterol 244 mg/dL 131-200 Above high normal [facility] ([facility]) Is patient fasting? Y HDL 80 mg/dL 29-86 [facility] ([facility]) Is patient fasting? Y LDL/HDL 1.76 1.47-3.22 [facility] ([facility]) Is patient fasting? Y LDL 141 mg/dL 65-175 [facility] ([facility]) Is patient fasting? Y Risk Factor 3.1 3.2-4.4 Below low normal [facility] ([facility]) Is patient fasting? Y ID Date Data Source [id number] 04/18/2020 08:37:00 AM EST [facility] ([facility]) Name Value Range Interpretation Code Description Data Poonam rce(s) Supporting Document(s) Hemoglobin A1c/Hemoglobin.total in Blood 5.4 % 4.4-6.1 [facility] ([facility]) Is patient fasting? Y ID Date Data Source [id number] 04/18/2020 08:37:00 AM EST [facility] ([facility]) Name Value Range Interpretation Code Description Data Poonam rce(s) Supporting Document(s) Comprehensive Metabo Laboratory test result [facility] ([facility]) Is patient fasting? Y Sodium 143 meq/L 134-153 [facility] ([facility]) Is patient fasting? Y Chloride 107 meq/L 98-107 [facility] ([facility]) Is patient fasting? Y Potassium 4.8 meq/L 3.6-5.0 [facility] ([facility]) Is patient fasting? Y Co2 32 meq/L 22-30 Above high normal [facility] ([facility]) Is patient fasting? Y BUN 16 mg/dL 7-21 [facility] ([facility]) Is patient fasting? Y Glucose 94 mg/dL 65-110 [facility] ([facility]) Is patient fasting? Y BUN/Creat 20 8-27 [facility] ([facility]) Is patient fasting? Y Total Protein 6.5 g/dL 6.3-8.2 [facility] ([facility]) Is patient fasting? Y Creatinine 0.8 mg/dL 0.7-1.5 [facility] ([facility]) Is patient fasting? Y Albumin 4.0 g/dL 3.9-5.0 [facility] ([facility]) Is patient fasting? Y Globulin 2.5 GM/DL 2.4-3.2 [facility] ([facility]) Is patient fasting? Y A/G Ratio 1.6 0.8-2.0 [facility] ([facility]) Is patient fasting? Y Total Bili Laboratory test result 0.2-1.3 [place] [facility] ([facility]) Is patient fasting? Y Calcium 10.1 mg/dL 8.4-10.2 [facility] ([facility]) Is patient fasting? Y Alkaline Phos 110 U/L 38-126 [facility] ([facility]) Is patient fasting? Y SGPT/Alt 50 U/L 7-56 [facility] ([facility]) Is patient fasting? Y Sgot/Ast 32 U/L 5-40 [facility] ([facility]) Is patient fasting? Y Non-Aa GFR Laboratory test result [facility] ([facility]) Is patient fasting? Y Anion Gap 4.0 mmol/L 8.0-16.0 Below low normal [facility] ( [facility]) Is patient fasting? Y Age 50 yrs [facility] ([facility]) Is patient fasting? Y Afr Amer GFR Laboratory test result [facility] ([facility]) Is patient fasting? Y ID Date Data Source [id number] 04/18/2020 08:37:00 AM EST [facility] ([facility]) Name Value Range Interpretation Code Description Data Poonam rce(s) Supporting Document(s) CBC W/Automated Diff Laboratory test result [facility] ([facility]) Is patient fasting? Y WBC 4.6 10^3/uL 4.2-11.0 [facility] ([facility]) Is patient fasting? Y RBC 3.89 10^6/uL 4.20-5.40 Below low normal [facility] ([facility]) Is patient fasting? Y Hemoglobin 11.3 g/dL 12.0-16.0 Below low normal [facility] ( [facility]) Is patient fasting? Y MCV 93.8 fL 81.0-101 [facility] ([facility]) Is patient fasting? Y Hematocrit 36.5 % 37.0-47.0 Below low normal [facility] ( [facility]) Is patient fasting? Y MCH 29.0 pg 27.0-34.0 [facility] ([facility]) Is patient fasting? Y RDW 13.8 % 11.5-14.5 [facility] ([facility]) Is patient fasting? Y MCHC 31.0 g/dL 31.0-36.0 [facility] ([facility]) Is patient fasting? Y Neut 29.5 % 37.0-80.0 Below low normal [facility] ( [facility]) Is patient fasting? Y MPV 10.5 fL 7.4-10.4 Above high normal [facility] ([facility]) Is patient fasting? Y Platelets 246 10^3/uL 150-450 [facility] ([facility]) Is patient fasting? Y Eos 1.1 % 0.0-7.0 [facility] ([facility]) Is patient fasting? Y Lymph 60.0 % 25.0-40.0 Above high normal [facility] ([facility]) Is patient fasting? Y [place] 8.5 % 3.0-8.0 Above high normal [facility] ([facility]) Is patient fasting? Y Baso 0.9 % 0.0-2.5 [facility] ([facility]) Is patient fasting? Y %Ig 0.0 % 0.0-0.0 [facility] ([facility]) Is patient fasting? Y %NRBC 0.0 % 0.0-0.0 [facility] ([facility]) Is patient fasting? Y #Lymph 2.75 10^3/uL 0.60-3.40 [facility] ([facility]) Is patient fasting? Y #Neut 1.35 10^3/uL 2.00-6.90 Below low normal [facility] ([facility]) Is patient fasting? Y #Eos 0.05 10^3/uL 0.00-0.70 [facility] ([facility]) Is patient fasting? Y #Baso 0.04 10^3/uL 0.00-0.20 [facility] ([facility]) Is patient fasting? Y #[place] 0.39 10^3/uL 0.00-0.90 [facility] ([facility]) Is patient fasting? Y #Ig 0.00 10^3/uL 0.00-0.10 [facility] ([facility]) Is patient fasting? Y #NRBC 0.00 10^3/uL 0.00-0.00 [facility] ([facility]) Is patient fasting? Y Manual Diff Laboratory test result M [facility] ([facility]) Is patient fasting? Y RBC Morph Laboratory test result [facility] ([facility]) Is patient fasting? Y ID Date Data Source [id number] 04/20/2020 10:24:00 AM EST [facility] Name Value Range Interpretation Code Description Data Poonam rce(s) Supporting Document(s) Prolactin [Mass/volume] in Serum or Plasma 53.6 ng/mL 4.8-23.3 H [facility] ID Date Data Source [id number] 04/18/2020 09:55:00 AM EST [facility] Name Value Range Interpretation Code Description Data Poonam rce(s) Supporting Document(s) CVE PANEL [facility] al LIPID PANEL Cholesterol [Mass/volume] in Serum or Plasma 244 MG/DL 131 - 200 H [facility] Deprecated Triglyceride [Mass/volume] in Serum or Plasma 74 MG/DL 3 5 - 160 [facility] HDL 80 MG/DL 29 - 86 [facility] Cholesterol in LDL [Mass/volume] in Serum or Plasma by Direc t assay 141 mg/dL 65 - 175 [facility] Cholesterol.total/Cholesterol in HDL [Mass Ratio] in Serum o r Plasma 3.1 3.2 - 4.4 L [facility] LDL/HDL 1.76 1.47 - 3.22 [facility] ital CVE RISK CHOL/HDL LDL/HDLMEN: 1/2 AVERAGE 3.43 1.00 AVERAGE 4.97 3.55 2X AVERAGE 9.55 6.25 3X AVERAGE 23.99 7.99WOMEN: 1/2 AVERAGE 3.27 1.47 AVERAGE 4.44 3.22 2X AVERAGE 7.05 5.03 3X AVERAGE 11.04 6.14 ID Date Data Source [id number] 04/18/2020 09:55:00 AM [facility] Name Value Range Interpretation Code Description Data Poonam rce(s) Supporting Document(s) COMPREHENSIVE METABOLIC PANEL [facility] COMPREHENSIVE METABOLIC PANEL Sodium [Moles/volume] in Serum or Plasma 143 mEq/L 134 - 153 [facility] Potassium [Moles/volume] in Serum or Plasma 4.8 mEq/L 3.6 - 5.0 [facility] Chloride [Moles/volume] in Serum or Plasma 107 mEq/L 98 - 107 [facility] Carbon dioxide, total [Moles/volume] in Serum or Plasma 32 MEQ/L 22 - 30 H [facility] Glucose [Mass/volume] in Serum or Plasma 94 MG/DL 65 - 110 [facility] BUN 16 MG/DL 7 - 21 [facility] Creatinine [Mass/volume] in Serum or Plasma 0.8 MG/DL 0.7 - 1.5 [facility] BUN/CREAT 20 8 - 27 [facility] Protein [Mass/volume] in Serum or Plasma 6.5 G/DL 6.3 - 8.2 [facility] Albumin [Mass/volume] in Serum or Plasma 4.0 G/DL 3.9 - 5.0 [facility] Globulin [Mass/volume] in Serum by calculation 2.5 GM/DL 2.4 - 3.2 [facility] A/G RATIO 1.6 0.8 - 2.0 [facility] Calcium [Mass/volume] in Serum or Plasma 10.1 MG/DL 8.4 - 10.2 [facility] Bilirubin.total [Mass/volume] in Serum or Plasma <0.7 MG/DL 0.2 - 1.3 [facility] Alkaline phosphatase [Enzymatic activity/volume] in Serum or Plasma 110 U/L 38 - 126 [facility] Aspartate aminotransferase [Enzymatic activity/volume] in Serum or Plasma 32 U/L 5 - 40 [facility] Alanine aminotransferase [Enzymatic activity/volume] in Seru m or Plasma 50 U/L 7 - 56 [facility] Anion gap 3 in Serum or Plasma 4.0 mmol/L 8.0 - 16.0 L [facility] AGE 50 yrs [facility] al NON-AA GFR >60 mL/min [facility] ital AFR AMER GFR >60 mL/min [facility] sp[facility] Male GFR In terprentation 20-49 yrs >60 mL/min Normal 50-59 yrs >56 mL/min Normal 60-69 yrs >49 mL/min Normal 70-79yrs >42 mL/min Normal 80 and above >35 mL/min Normal Female GFR Interpretation 20-39 yrs >60 mL/min Normal 40-49 yrs >58 mL/min Normal 50-59 yrs >51 mL/min Normal 60-69 yrs >45 mL/min Normal 70-79 yrs >39 mL/min Normal 80 and above >32 mL/min Normal ID Date Data Source [id number] 04/18/2020 09:24:00 AM EST [facility] Name Value Range Interpretation Code Description Data Poonam e(s) Supporting Document(s) Hemoglobin A1c/Hemoglobin.total in Blood 5.4 % 4.4 - 6.1 [facility] {A1]{HB] ID Date Data Source [id number] 04/18/2020 08:54:00 AM EST [facility] Name Value Range Interpretation Code Description Data [facility](s) Supporting Document(s) CBC W/AUTOMATED DIFF [facility] COMPLETE BLOOD COUNT Leukocytes [#/volume] in Blood by Automated count 4.6 10^3/uL 4.2 - 1 1.0 [facility] Erythrocytes [#/volume] in Blood by Automated count 3.89 10^6/uL 4. 20 - 5.40 L [facility] Hemoglobin [Mass/volume] in Blood 11.3 g/dL 12.0 - 16.0 L [facility] Hematocrit [Volume Fraction] of Blood by Automated count 36.5 % 3 7.0 - 47.0 L [facility] Erythrocyte mean corpuscular volume [Entitic volume] by Auto mated count 93.8 fL 81.0 - 101 [facility] Erythrocyte mean corpuscular hemoglobin [Entitic mass] by Automated count 29.0 pg 27.0 - 34.0 [facility] Erythrocyte mean corpuscular hemoglobin concentration [Mass/volume] by Automated count 31.0 g/dL 31.0 - 36.0 [facility] Erythrocyte distribution width [Ratio] by Automated count 13.8 % 11.5 - 14.5 [facility] Platelets [#/volume] in Blood by Automated count 246 10^3/uL 150 - 45 0 [facility] Platelet mean volume [Entitic volume] in Blood by Automated count 10.5 fL 7.4 - 10.4 H [facility] Neutrophils/100 leukocytes in Blood by Automated count 29.5 % 37. 0 - 80.0 L [facility] Lymphocytes/100 leukocytes in Blood by Manual count 60.0 % 25.0 - 40.0 H [facility] Monocytes/100 leukocytes in Blood by Automated count 8.5 % 3.0 - 8.0 H [facility] Eosinophils/100 leukocytes in Blood by Automated count 1.1 % 0.0 - 7.0 [facility] Basophils/100 leukocytes in Blood by Automated count 0.9 % 0.0 - 2.5 [facility] %IG 0.0 % 0.0 - 0.0 [facility] al %NRBC 0.0 % 0.0 - 0.0 [facility] Neut[facility] [#/volume] in Blood by Automated count 1.35 10^3/uL 2.00 - 6.90 L [facility] Lymphocytes [#/volume] in Blood by Automated count 2.75 10^3/uL 0.60 - 3.40 [facility] Monocytes [#/volume] in Blood by Automated count 0.39 10^3/uL 0.00 - 0.90 [facility] Eosinophils [#/volume] in Blood by Automated count 0.05 10^3/uL 0.00 - 0.70 [facility] Basophils [#/volume] in Blood by Automated count 0.04 10^3/uL 0.00 - 0.20 [facility] #IG 0.00 10^3/uL 0.00 - 0.10 [facility] #NRBC 0.00 10^3/uL 0.00 - 0.00 [facility] MANUAL DIFF NOT INDICATED [facility] RBC MORPH NOT INDICATED [facility] ID Date Data Source [id number] 02/25/2020 07:52:00 AM EDT [facility] ([facility]) Name Value Range Interpretation Code Description Data Poonam rce(s) Supporting Document(s) Reported Physicians See Note Reported Physici ans [facility] ([facility]) Note: Reported Physicians:Ordering: Cuba Gonzalez AAttending: CUBA AMAYAConsulting: CUBA AMAYACopten To: Cuba Amaya ID Date Data Source [id number] 02/25/2020 07:52:00 AM EDT [place] ([facility]) Name Value Range Interpretation Code Description Data Poonam rce(s) Supporting Document(s) LH 0.6 mIU/mL LH [place] ([facility]) Note: Adult Female: Follicular phase 2.4 - 12.6 Ovulation phase 14.0 - 95.6 Luteal phase 1.0 - 11.4 Postmenopausal 7.7 - 58.5Responsible Observer: (rfl) ID Date Data Source [id number] 02/25/2020 07:52:00 AM EDT [place] ([facility]) Name Value Range Interpretation Code Description Data Poonam rce(s) Supporting Document(s) Reported Physicians See Note Reported Physici ans [place] ([facility]) Note: Reported Physicians:Ordering: Cuba Gonzalez AAttending: CUBA AMAYAConsulting: CUBA AMAYACopten To: [place] Amaya ID Date Data Source [id number] 02/25/2020 07:52:00 AM EDT [place] ([facility]) Name Value Range Interpretation Code Description Data Poonam rce(s) Supporting Document(s) FSH 0.6 mIU/mL FSH [place] ([facility]) Note: Adult Female: Follicular phase 3.5 - 12.5 Ovulation phase 4.7 - 21.5 Luteal phase 1.7 - 7.7 Postmenopausal 25.8 - 134.8Responsible Observer: (rfl) ID Date Data Source [id number] 02/27/2020 02:00:00 PM [facility] Name Value Range Interpretation Code Description Data Poonam rce(s) Supporting Document(s) Follitropin [Units/volume] in Serum or Plasma 0.6 mIU/mL [facility] Adult Female: Follicular phase 3.5 - 12.5 Ovulation phase 4.7 - 21.5 Luteal phase 1.7 - 7.7 Postmenopausal 25.8 - 134.8 ID Date Data Source [id number] 02/27/2020 02:00:00 PM [facility] Name Value Range Interpretation Code Description Data Poonam rce(s) Supporting Document(s) Lutropin [Units/volume] in Serum or Plasma 0.6 mIU/mL [facility] Adult Female: Follicular phase 2.4 - 12.6 Ovulation phase 14.0 - 95.6 Luteal phase 1.0 - 11.4 Postmenopausal 7.7 - 58.5 ID Date Data Source [id number] 12/17/2019 08:07:00 AM EDT [facility] Name Value Range Interpretation Code Description Data Poonam rce(s) Supporting Document(s) Haptoglobin 104 mg/dL 42-296 [facility] ID Date Data Source [id number] 12/17/2019 02:06:00 PM EDT [facility] Name Value Range Interpretation Code Description Data Poonam rce(s) Supporting Document(s) LLUVIA Direct Negative Negative [facility] ID Date Data Source [id number] 12/19/2019 04:06:00 PM EDT [facility] Name Value Range Interpretation Code Description Data Poonam rce(s) Supporting Document(s) Hgb Solubility Negative Negative [facility] Hgb F 0.0 % 0.0-2.0 [facility] Hgb A 97.8 % 96.4-98.8 [facility] Hgb S 0.0 % 0.0 [facility] Hgb C 0.0 % 0.0 [facility] Hgb A2 2.2 % 1.8-3.2 [facility] Hgb Variant 0.0 % 0.0 [facility] Interpretation [facility] Normal adult hemoglobin present. ID Date Data Source [id number] 12/22/2019 02:06:00 PM EDT [facility] Name Value Range Interpretation Code Description Data Poonam rce(s) Supporting Document(s) Hereditary Hemochromatosis [facility] NO MUTATION IDENTIFIED Interpretation:Th is patient's sample was analyzed for the hereditaryhemochromatosis (HH) mutations C282Y, H63D, S65C. Nomutation was identified. The mutations analyzed by [facility]are most common in the population, and up to 90%of affected Caucasians will have a positive test result.Because this panel does not identify rare HH mutations orHH mutations found in other ethnic groups, there are asmall number of people who may have a negative test but mayactually be affected. The diagnosis of HH should includeclinical findings and other test results such astransferrin-iron saturation and/or serum ferritin studiesand/or liver biopsy. If this patient has a history of HH,in many cases a specific carrier risk can be determinedbased on this negative result.Methodology:DNA Analysis of the HFE gene was performed by PCRamplification followed by restriction enzyme digestionanalyses. Reference:Sameer JS and Jovany AP. (2000). Zaina Test 4:97-101.Griselda MCKENZIE et al. (1999). AM J Prev Med 16:134-140.Jennifer Martin (2002). Lancet 360(2516):1673- 22.Diana Jose et al. (2002). Blood Cells, Molecules. andDiseases. 29(3):418- 432.Candy Lopez et al. (2003). Zaina Med. 5(1):1-8.Griselda MCKENZIE et al. (2003). Zaina Med. 5(4):304-10.This test was developed and its performance characteristics determinedby [facility]. It has not been cleared or approved by the Food and DrugAdministration. Genetic counselors are available for health care providers to discussresults at [phone]. 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 Individualswith alpha-+-thalassemia trait typically have no clinicalfindings. Additionally, this individual is negative for theHemoglobin Constant Spring mutation. The presence of othernon-deletional mutations, like point mutations, in thealpha-globin gene cannot be excluded as the assay does notdetect these changes. Co-inheritance of alpha-thalassemiaand other hemoglobinopathies, such as beta-thalassemia andsickle cell disease is possible. Genetic counseling andhemoglobinopathy testing are recommended for thisindividual's reproductive partner and family members.Alpha-thalassemia is an autosomal recessive condition thatresults from a deletion or dysfunction of alpha-globinchains. There are f our genes that make the alpha-globinchain, which binds with the beta-globin chain to create thealpha alpha/beta beta hemoglobin tetramer. An imbalance ofalpha and beta chains can lead to disease, ranging from mildanemia to fatal hydrops fetalis. Hemoglobin Constant Springis a non-deletional alpha-thalassemia mutation that is morecommon in [place]. Hemoglobin Constant Spring iscaused by a mutation in the stop codon of thealpha(2)-globin gene that results in poor alpha-globinproduction.The assay detects over 90% of alpha-globin deletionsdepending on an individual's ethnic background. The analysisdoes not detect mutations in the beta-globin gene, such asbeta-thalassemia or sickle cell disease. Diagnosis ofalpha-thalassemia should not rely on DNA testing alone, butshould take into consideration clinical symptoms and othertest results, such as hemoglobin fractionation testing.Genetic counselors are available for health care providersto discuss this result further at .Methodology:DNA analysis of the alpha-globin locus (HBA1/HBA2, [id number] / [id number], 16pter- 16p13.3) is performed by multiplexligation-dependent probe amplification (MLPA). Thismethodology detects copy number changes by targeting 24different sequences in the alpha-globin region, and will,in principle, detect all genomic deletions and duplicationsinvolving this locus, as well as the Constant Spring pointmutation. DNA analysis of the alpha-globin gene deletionsperformed by multiplex polymerase chain reaction (PCR)followed by agarose gel electrophoresis may on occasion beused for confirmatory purpose. The mutations analyzed inthis manner are alpha3.7, alpha4.2, [place] type(--SEA), Maltese type (--STEWART), [place] type(--[place]),Mediterranean (--MED) and alpha (20.5). The analysis doesnot detect other point mutations within this region, nordoes it detect mutations of the beta-globin gene, thatunderlie beta-thalassemia or sickle cell disease. Resultsof this test are for investigational and research purposesonly per the assay's legal clerk. The performancecharacteristics of this assay have not been established bythe legal clerk. The result should not be used fortreatment or for diagnostic purposes without confirmationof the diagnosis by another medically established diagnosticproduct or procedure. The performance characteristics weredetermined by [facility]. The presence of a rare mutationcannot be entirely ruled out. Molecular-based testing ishighly accurate, but as in any laboratory test, rarediagnostic error may occur.References:1. Armas SS et al. Single-tube multiplex-PCR screen for common deletional determinants of alpha-thalassemia. 2000. Blood 95:360-362.2. Pawel SS et al. Simplified Multiplex-PCR diagnosis of common [place] deletional determinants of alpha- thalassemia. 2000. Clin Chem 46(10):1692-5.3. Schabdirahman SL et al. The unusal pathobiology of Hemoglobin [place] red blood cells. 1976. Blood 89:9513-6628.4. ST et al. Hemoglobin H-[place] in [place]: an alpha thalassemia with frequent complications . 2008. Am J Hematology 84:759-761.5. Gina N et al. Hematological characteristics and effective screening for compound heterozygosity for Hb [place] and deletional alpha-+-thalassemia. 2011. Am J Hematology 86:615-617.6. Home R and Kimani A. Alpha-Thalassemia. 2011. GeneReviews. [email or web address]. [facility] Comprehensive Thalassemia Center [email or web address] as cited on 05/26/2004.8. [place] COREA, Cristian H, et al. Detection of alpha-thalassemia in [place] by using multiplex liga tion-dependent probe amplification. 2008. Hemoglobin 32:561-571.9. [facility] MLPA P140-B2 HBA kit RUO package insert version 16.Results Released By: Hafsa Schaefer, Ph.D., DirectorReport Released By: Kendra Taveras, MS, [facility], GeneticCounselorResults for this test are for research purposes only by the assay'smanufacturer. The performance characteristics of this product havenot been established. Results should not be used as a diagnosticprocedure without confirmation of the diagnosis by another medicallyestablished diagnostic product or procedure. PDF . [facility] ID Date Data Source [id number] 12/22/2019 01:05:00 PM EDT [facility] Name Value Range Interpretation Code Description Data Poonam rce(s) Supporting Document(s) Informed Consent Needed [facility] TEST ORDERED: [id number] Fax back to [phone]. Many states require laboratoriesto have documentation that the appropriate health care providerhas obtained informed consent from patients before the laboratoryconducts genetic testing. Informed consent includes the patientunderstanding the purpose of the test, how the test is performed,the reliability of the test, alternatives to testing, implicationsof test results, and options on how to instruct the laboratory tostore, use or dispose of the sample when testing is complete. [facility] did not receive any documentation of informed consentfor above mentioned patient and ordered tests. Please check thestatement applicable to this patient and sign below so that [facility] release the results for this patient. [] I authorize and confirm patient consent for the above mentionedgenetic test(s). [] I have provided appropriate informed consent for the above mentioned test(s) and documentation of this consent is maintained in the patient record. Health care provider signature Date Printed name Fax back to [facility] at [phone] [facility] Procedure Social History Code Duration Value Status Description Data Source(s ) Smoking 09/18/2020 11:53:00 PM EDT Not Known completed Not Known [facility] Smoking 08/30/2020 12:00:00 AM EDT Never Smoked A Pipe complet ed Never Smoked A Pipe [facility] ([facility]) Vital Signs ID Date Data Source UNK Name Value Range Interpretation Code Description Data Source(s) Body weight 65.375 kg 65.375 kg [facility] ([facility]) Systolic blood pressure 98 mm[Hg] 98 mm[Hg] M [facility] ([facility]) Body height 64 [in_i] 64 [in_i] [facility] ([facility]) 5'4" Diastolic blood pressure 62 mm[Hg] 62 mm[Hg] [facility] ([facility]) Heart rate 100 /min 100 /min [facility] ([facility]) Respiratory rate 16 /min 16 /min [facility] ( [facility]) Oxygen saturation in Arterial blood by Pulse oximetry 97 % 97 % [facility] ([facility]) Body weight 144.12 [lb_av] 144.12 [lb_av] [facility] T ([facility]) Body mass index (BMI) [Ratio] 24.7 kg/m2 24.7 k g/m2 [facility] ([facility]) Body surface area Derived from formula 1.70 m2 1.70 m2 [facility] ([facility]) Systolic blood pressure 118 mm[Hg] Normal (applies t o non-numeric results) 118 mm[Hg] [facility] Diastolic blood pressure 67 mm[Hg] Normal (applies to non-numeric results) 67 mm[Hg] [facility] Heart rate 130 min Normal (applies to non-numeric resul ts) 130 min [facility] Respiratory rate 19 min Normal (applies to non-numeric results) 19 min [facility] Body temperature 36.9 frida Normal (applies to non-numeric results) 36.9 frida [facility] Deprecated Oxygen saturation in Capillary blood by Oximetry 98 % Normal (applies to non-numeric results) 98 % [facility] Body height 176.784 cm Normal (applies to non-numeric resu lts) 176.784 cm [facility] Body weight Measured 68.2 kg Normal (applies to non-num addis results) 68.2 kg [facility] Body mass index (BMI) [Ratio] 21.57 kg/m2 No rmal (applies to non-numeric results) 21.57 kg/m2 [facility] Systolic blood pressure 122 mm[Hg] 122 mm[Hg] [facility] ([facility]) Inhaled oxygen flow rate 0 L/min 0 L/min [place] ([facility]) Diastolic blood pressure 80 mm[Hg] 80 mm[Hg] [place] ([facility]) Inhaled oxygen concentration 21 % 21 % [place] ([facility]) Heart rate 103 /min 103 /min [place] ([facility]) Body temperature 95.6 [degF] 95.6 [degF] [facility] ([facility]) Body height 65.5 [in_i] 65.5 [in_i] [place] ([facility]) Oxygen saturation in Arterial blood by Pulse oximetry 95 % 95 % [place] ([facility]) Heart rate 96 /min 96 /min [place] ([facility]) UNABLE TO GET 02 SAT TO REGISTER, NAIL P OLISH. UNABLE TO WEIGH PT. D/T UNSTEADY BALANCE. PSA Body temperature 93.5 [degF] 93.5 [degF] [facility] ([facility]) UNABLE TO GET 02 SAT TO REGISTER, NAIL P OLISH. UNABLE TO WEIGH PT. D/T UNSTEADY BALANCE. PSA Body height 65.5 [in_i] 65.5 [in_i] [place] ([facility]) UNABLE TO GET 02 SAT TO REGISTER, NAIL P OLISH. UNABLE TO WEIGH PT. D/T UNSTEADY BALANCE. PSA Respiratory rate 18 /min 18 /min [place] ([facility]) UNABLE TO GET 02 SAT TO REGISTER, NAIL P OLISH. UNABLE TO WEIGH PT. D/T UNSTEADY BALANCE. PSA Systolic blood pressure 90 mm[Hg] 90 mm[Hg] [facility] ([facility]) UNABLE TO GET 02 SAT TO REGISTER, NAIL P OLISH. UNABLE TO WEIGH PT. D/T UNSTEADY BALANCE. PSA Diastolic blood pressure 70 mm[Hg] 70 mm[Hg] [place] ([facility]) UNABLE TO GET 02 SAT TO REGISTER, NAIL P OLISH. UNABLE TO WEIGH PT. D/T UNSTEADY BALANCE. PSA Systolic blood pressure 110 mm[Hg] 110 mm[Hg] [facility] ([facility]) Diastolic blood pressure 60 mm[Hg] 60 mm[Hg] [place] ([facility]) Heart rate 76 /min 76 /min [place] ([facility]) Respiratory rate 20 /min 20 /min [place] ([facility]) Body temperature 96.7 [degF] 96.7 [degF] [place] [facility] ([facility]) Body height 65.5 [in_i] 65.5 [in_i] [place] ([facility]) Body weight 158 [lb_av] 158 [lb_av] [place] ([facility]) Body mass index (BMI) [Ratio] 25.9 kg/m2 25.9 k g/m2 [place] ([facility]) Body surface area Derived from formula 1.80 m2 1.80 m2 [place] ([facility]) Oxygen saturation in Arterial blood by Pulse oximetry 98 % 98 % [place] ([facility]) Body height 65.5 [in_i] 65.5 [in_i] [place] ([facility]) Body weight 155 [lb_av] 155 [lb_av] [place] ([facility]) Body mass index (BMI) [Ratio] 25.4 kg/m2 25.4 k g/m2 [place] ([facility]) Body surface area Derived from formula 1.78 m2 1.78 m2 [place] ([facility]) Oxygen saturation in Arterial blood by Pulse oximetry 98 % 98 % [place] ([facility]) Systolic blood pressure 110 mm[Hg] 110 mm[Hg] [facility] ([facility]) Heart rate 100 /min 100 /min [place] ([facility]) Respiratory rate 20 /min 20 /min [place] ([facility]) Body temperature 96.3 [degF] 96.3 [degF] [place] [facility] ([facility]) Diastolic blood pressure 60 mm[Hg] 60 mm[Hg] [place] ([facility]) Systolic blood pressure 118 mm[Hg] 118 mm[Hg] [facility] ([facility]) Diastolic blood pressure 68 mm[Hg] 68 mm[Hg] [place] ([facility]) Heart rate 68 /min 68 /min [place] ([facility]) Respiratory rate 24 /min 24 /min [place] ([facility]) Body temperature 97.8 [degF] 97.8 [degF] [facility] ([facility]) Body height 65.5 [in_i] 65.5 [in_i] [place] ([facility]) Body weight 158 [lb_av] 158 [lb_av] [place] ([facility]) Body mass index (BMI) [Ratio] 25.9 kg/m2 25.9 k g/m2 [place] ([facility]) Body surface area Derived from formula 1.80 m2 1.80 m2 [place] ([facility]) Oxygen saturation in Arterial blood by Pulse oximetry 98 % 98 % [place] ([facility]) Inhaled oxygen flow rate 0 L/min 0 L/min [place] ([facility]) Inhaled oxygen concentration 21 % 21 % [place] ([facility]) ID Date Data Source [id number] 09/23/2020 01:57:04 PM EDT [facility] Name Value Range Interpretation Code Description Data Source(s) WEIGHT RECORDED 159.20 pounds 159.20 pounds [facility] Height 65 Inches 065 Inches [facility] Patient Treatment Plan of Care Planned Activity Planned Date Details Description Data Source (s) Docusate Sodium 100 MG Oral Capsule [Colace] 09/09/2020 12:00:00 AM EDT [place] ([facility]) Multivitamin Oral Tablet 08/07/2020 12:00:00 AM EDT [place] ([facility]) Docusate Sodium 100 MG Oral Capsule [Colace] 08/04/2020 12:00:00 AM EDT [place] ([facility]) Senna Laxative 8.6 MG Oral Tablet 08/04/2020 12:00:00 AM EDT [place] ([facility]) Folic Acid 1 MG Oral Tablet 08/04/2020 12:00:00 AM EDT [place] ([facility]) POLYETHYLENE GLYCOL 3350 142 MG/ML Oral Solution [Ne lax] 08/04/2020 12:00:00 AM EDT [place] ([facility]) Karolina Allergy 180 MG Oral Tablet 08/04/2020 12:00:00 AM EDT [place] ([facility]) Baclofen 20 MG Oral Tablet 08/04/2020 12:00:00 AM EDT [place] ([facility]) Lactulose 667 MG/ML Oral Solution [Constulose] 08/04/2020 12:00:00 AM EDT [place] ([facility]) carbamide peroxide 65 MG/ML Otic Solution [Debrox] 08/04/2020 12 :00:00 AM EDT [place] ([facility]) calcium polycarbophil 625 MG Oral Tablet [FiberCon] 08/05/19 12:00:00 AM EDT [place] ([facility]) Sodium Phosphate, Dibasic 35.5 MG/ML / S odium Phosphate, Monobasic 96.4 MG/ML Enema 08/04/2020 12:00:00 AM EDT [facility] ([facility]) Kariva 0.15-0.02/0.01 MG (/) Oral Tablet 08/04/2020 12:00:00 AM EDT [place] ([facility]) Levothyroxine Sodium 0.112 MG Oral Tablet 08/04/2020 12:00:00 AM ED T [place] ([facility]) linaclotide 0.145 MG Oral Capsule [Linzess] 08/04/2020 12:00:00 AM EDT [place] ([facility]) montelukast 10 MG Oral Tablet 08/04/2020 12:00:00 AM EDT [facility]) Omeprazole 40 MG Delayed Release Oral Capsule 08/04/2020 12:00:00 A M EDT [place] ([facility]) traMADol HCl ER (Biphasic) 300 MG Oral Tablet Extended Release 24 Hour 07/05/2020 12:00:00 AM [facility]) traMADol HCl ER (Biphasic) 300 MG Oral Tablet Extended Release 24 Hour 07/05/2020 12:00:00 AM [facility] ([facility]) 24 HR tramadol hydrochloride 300 MG Extended Release O ral Capsule 06/28/2020 12:00:00 AM [facility]) Kariva 0.15-0.02/0.01 MG (21/5) Oral Tablet 04/15/2020 12:00:00 AM [facility]) Omeprazole 40 MG Delayed Release Oral Capsule 04/15/2020 12:00:00 A M [facility]) Baclofen 20 MG Oral Tablet 04/15/2020 12:00:00 AM [facility]) Docusate Sodium 100 MG Oral Capsule [Colace] 04/15/2020 12:00:00 AM [facility]) Sodium Phosphate, Dibasic 35.5 MG/ML / S odium Phosphate, Monobasic 96.4 MG/ML Enema 04/15/2020 12:00:00 AM [facility]) calcium polycarbophil 625 MG Oral Tablet [FiberCon] 04/15/20 12:00:00 AM [facility]) carbamide peroxide 65 MG/ML Otic Solution [Debrox] 04/15/2020 12 :00:00 AM [facility]) Lactulose 667 MG/ML Oral Solution [Constulose] 04/15/2020 12:00:00 AM [facility]) Karolina Allergy 180 MG Oral Tablet 04/15/2020 12:00:00 AM [facility]) montelukast 10 MG Oral Tablet 04/15/2020 12:00:00 AM [facility]) linaclotide 0.145 MG Oral Capsule [Linzess] 04/15/2020 12:00:00 AM [facility]) Levothyroxine Sodium 0.112 MG Oral Tablet 04/15/2020 12:00:00 AM [facility] ([facility]) Folic Acid 1 MG Oral Tablet 04/15/2020 12:00:00 AM [facility] ([facility]) 24 HR tramadol hydrochloride 300 MG Extended Release O ral Capsule 03/30/2020 12:00:00 AM [facility] ([facility]) Levothyroxine Sodium 0.112 MG Oral Tablet 03/17/2020 12:00:00 AM [facility] ([facility]) Kariva 0.15-0.02/0.01 MG (21/5) Oral Tablet 01/27/2020 12:00:00 AM EDT [place] ([facility]) 24 HR tramadol hydrochloride 300 MG Extended Release O ral Capsule 12/31/2019 12:00:00 AM EDT [place] ([facility]) Sodium Phosphate, Dibasic 35.5 MG/ML / S odium Phosphate, Monobasic 96.4 MG/ML Enema 12/31/2019 12:00:00 AM EDT [facility] ([facility]) Multi Vitamin Daily Oral Tablet 12/23/2019 12:00:00 AM EDT [place] ([facility]) Baclofen 20 MG Oral Tablet 12/23/2019 12:00:00 AM EDT [place] ([facility]) Docusate Sodium 100 MG Oral Capsule [Colace] 12/23/2019 12:00:00 AM EDT [place] ([facility]) Karolina Allergy 180 MG Oral Tablet 12/23/2019 12:00:00 AM EDT [place] ([facility]) calcium polycarbophil 625 MG Oral Tablet [FiberCon] 12/23/19 20 12:00:00 AM EDT [place] ([facility]) Lactulose 667 MG/ML Oral Solution [Constulose] 12/23/2019 12:00:00 AM EDT [place] ([facility]) Folic Acid 1 MG Oral Tablet 12/23/2019 12:00:00 AM EDT [place] ([facility]) linaclotide 0.145 MG Oral Capsule [Linzess] 12/23/2019 12:00:00 AM EDT [facility]) montelukast 10 MG Oral Tablet 12/23/2019 12:00:00 AM EDT [place] ([facility]) Levothyroxine Sodium 0.112 MG Oral Tablet [Synthroid] 12/23/2019 12:00:00 AM EDT [facility]) Omeprazole 40 MG Delayed Release Oral Capsule 12/23/2019 12:00:00 A M EDT [facility]) carbamide peroxide 65 MG/ML Otic Solution [Debrox] 11/10/2019 12 :00:00 AM EDT [facility]) Omeprazole 40 MG Delayed Release Oral Capsule 11/03/2019 12:00:00 A M [facility]) 24 HR tramadol hydrochloride 300 MG Extended Release O ral Capsule 10/07/2019 12:00:00 AM EDT [facility]) Karolina Allergy 180 MG Oral Tablet 10/06/2019 12:00:00 AM EDT [facility]) Baclofen 20 MG Oral Tablet 10/06/2019 12:00:00 AM EDT [facility]) Docusate Sodium 100 MG Oral Capsule [Colace] 10/06/2019 12:00:00 AM EDT [facility]) Lactulose 667 MG/ML Oral Solution [Constulose] 10/06/2019 12:00:00 AM EDT [facility]) calcium polycarbophil 625 MG Oral Tablet [FiberCon] 10/06/19 12:00:00 AM EDT [facility]) Folic Acid 1 MG Oral Tablet 10/06/2019 12:00:00 AM EDT [facility]) linaclotide 0.145 MG Oral Capsule [Linzess] 10/06/2019 12:00:00 AM EDT [facility]) montelukast 10 MG Oral Tablet 10/06/2019 12:00:00 AM EDT [facility]) Levothyroxine Sodium 0.112 MG Oral Tablet [Synthroid] 10/06/2019 12:00:00 AM EDT [place] ([facility]) Multi Vitamin Daily Oral Tablet 10/06/2019 12:00:00 AM [facility] ([facility]) Sodium Phosphate, Dibasic 35.5 MG/ML / S odium Phosphate, Monobasic 96.4 MG/ML Enema 08/27/2019 12:00:00 AM [facility] ([facility])
[2021-02-12 21:28] LABS: ABG BASE EXCESS -0.2 (-2.0-2.0); ABG O2 SATURATION 97.6 % (95.0-99.0); ABG PARTIAL PRESSURE CO2 43.4 mmHg (35.0-45.0); ABG PARTIAL PRESSURE O2 103.1 mmHg (75.0-100.0); ABG STANDARD HCO3 24.3 MEQ/L (22.0-26.0); ABG TOTAL CO2 26.4 MEQ/L (22.0-29.0); ABG pH (ARTERIAL) 7.379 UNITS (7.350-7.450)
--- NOTE | 2021-02-12 21:59 | REPVR ---
PROCEDURE INFORMATION: Exam: CT Head Without Contrast Exam date and time: 02/12/2021 9:08 PM Age: 50 years old Clinical indication: Altered mental status/memory loss; Confusion or disorientation; Patient HX: Lethargic TECHNIQUE: Imaging protocol: Computed tomography of the head without contrast. Radiation optimization: All CT scans at this facility use at least one of these dose optimization techniques: automated exposure control; mA and/or kV adjustment per patient size (includes targeted exams where dose is matched to clinical indication); or iterative reconstruction. COMPARISON: XA Cookie Swallow Mod.Ba Swallow 10/13/2020 3:09 PM FINDINGS: Brain: There is no evidence of infarct, hill-white matter differentiation is preserved. There is no hemorrhage or extra-axial collection. There is no mass. There is absence of the corpus callosum. Cerebral ventricles: The lateral ventricles have a parallel configuration with prominence of the occipital horns. This appearance is associated with absence of the corpus callosum. No hydrocephalus. Paranasal sinuses: Visualized sinuses are unremarkable. No fluid levels. Mastoid air cells: Visualized mastoid air cells are well aerated. Bones/joints: Unremarkable. No acute fracture. Soft tissues: Unremarkable. IMPRESSION: 1. 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 2. No acute intracranial lesion or injury Electronically signed by: Lalito Gold On 02/12/2021 21:59:16 PM
[2021-02-12 22:14] LABS: BASO % 0.1 % (0.0-1.0); EOS % 0.1 % (0.0-3.0); HEMATOCRIT 34.8 % (36.0-47.0); HEMOGLOBIN 10.9 g/dl (12.0-15.5); LYMPH # 1.9 10^3/uL (1.5-5.0); LYMPH % 16.9 % (24.0-44.0); MEAN CORPUSCULAR HEMOGLOBIN 29.3 pg (27.0-33.0); MEAN CORPUSCULAR HGB CONC 31.3 g/dl (32.0-36.5); MEAN CORPUSCULAR VOLUME 93.5 fl (80.0-96.0); MONO # 0.8 10^3/uL (0.0-0.8); MONO % 7.4 % (2.0-8.0); NEUTROPHILS # 8.2 10^3/uL (1.5-8.5); PLATELET COUNT, AUTOMATED 169 10^3/uL (150-450); RED BLOOD COUNT 3.72 10^6/uL (4.00-5.40); WHITE BLOOD COUNT 10.9 10^3/uL (4.0-10.0)
[2021-02-12 22:29] LABS: OSMOLALITY SERUM 297 MOSM/KG (275-295)
[2021-02-12 22:42] LABS: ACETAMINOPHEN LEVEL < 2.0 UG/ML (10.0-30.0); ALBUMIN 3.2 GM/DL (3.2-5.2); ALT/SGPT 96 U/L (12-78); BILIRUBIN,DIRECT < 0.1 MG/DL (0.0-0.2); BILIRUBIN,TOTAL 0.1 MG/DL (0.2-1.0); BLOOD UREA NITROGEN 16 MG/DL (7-18); CALCIUM LEVEL 9.7 MG/DL (8.5-10.1); CARBON DIOXIDE LEVEL 30 MEQ/L (21-32); CHLORIDE LEVEL 108 MEQ/L (98-107); CK-MB VALUE MASS 2.4 NG/ML (<3.6); CPK CREATINE PHOSPHOKINASE 55 U/L (26-192); CREATININE FOR GFR 0.98 MG/DL (0.55-1.30); ETHYL ALCOHOL (ETHANOL) < 0.003 % (0.000-0.010); GLOMERULAR FILTRATION RATE > 60.0 (>51); GLUCOSE, FASTING 85 MG/DL (70-100); MB/CK RELATIVE INDEX 4.36 (< OR =4); POTASSIUM SERUM 5.3 MEQ/L (3.5-5.1); SALICYLATE LEVEL < 1.7 MG/DL (5.0-30.0); SODIUM LEVEL 142 MEQ/L (136-145); THYROID STIMULATING HORMONE 0.078 uIU/ML (0.358-3.740); TOTAL PROTEIN 7.7 GM/DL (6.4-8.2); TROPONIN I < 0.02 NG/ML (< 0.10)
[2021-02-12] MEDS ORDERED: SODIUM CHLORIDE 0.9% 1000ML IV STA (23:18)
[2021-02-12] MEDS ORDERED: ACETAMINOPHEN TAB 650MG DOSE (2X325MG) PO PRN (23:20)
[2021-02-12] MEDS ORDERED: MAALOX 30 ML SUSP *UDC PO PRN (23:20)
[2021-02-12] MEDS ORDERED: MOM 30ML SUSPENSION UDC PO PRN (23:20)
--- NOTE | 2021-02-12 23:27 | HPEPDOC ---
[facility] Medical History & Physical Date of Admission Feb 12, 2021 Date of Service: Feb 12, 2021 Other Provider Cinthya Syed CAVANAUGH History and Physical TIME OF SERVICE: 1145pm CHIEF COMPLAINT: confusion HISTORY OF PRESENT ILLNESS: Per d/w the [facility] staff member who accompanied the patient, , a 50 yr old F w a developmental disability, has not been sleeping for 3 days. Today she was noted to be less active and has been sleeping most of the day. Despite receiving 2 doses of the moderna COVID 19 vaccine she was found to have hypoxemia and COVID 19. No other residents of the home she lives in have been diagnosed with COVID. 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 HOME MEDICATIONS: Please see below. PHYSICAL EXAMINATION: Vital Signs Date Time Temp Pulse Resp B/P (MAP) Pulse Ox O2 Delivery O2 Flow Rate FiO2 02/12/21 19:55 98.9 100 20 102/56 (71) 100 Room Air 02/12/21 22:57 3.0 GENERAL APPEARANCE: slim build / lethargic HEENT: NC in place / keeps eyes closes throughout exam CARDIOVASCULAR: tachycardic /NMRG LUNGS: CTAB on RA ABDOMEN: contour flat/ soft / she doesnt grimace w palpation MUSCULOSKELETAL: NCAT INTEGUMENT: diaphoretic NEUROLOGICAL: unable to assess bc the patient is lethargic PSYCHIATRIC: Corn comma scale 5 points LABORATORY DATA: IMAGING: Chest xray report pending (based on personal visualization the patient is rotated to the left but the lungs appear clear) CT head IMPRESSION: 1. 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 2. No acute intracranial lesion or injury. MICROBIOLOGY: + COVID ASSESSMENT: is a 50 yr old w developmental disability, hypothyroidism, debility & left sided hearing loss who is admitted for encephalopathy, hypotension, hypoxemia 2/2 break through COVID 19 infection and JACOB. PLAN: 1 Hypotension -She doesnt meet SIRS criteria but her qSOFA score puts her in the high risk category Plan: order 1 additional L of bolus of IVF (she has only received 1 so far) / switch to LR @ 150ml/H once she arrives in the COVID PCU / monitor UOP and ask RN to check HER CVP 2 COVID-19 -This is a break through infection -Her O2 sats were as low as 72% Plan: continuous pulse ox / supplemental O2 (target O2 sats between 92-95%) / contact & air borne precautions / awake proning (if the pt will tolerate it) / albuterol neb / dexamethasone / Remdesivir / day time team to consult Pulm to discuss Baricitinb 3 Metabolic Encephalopathy Likely due to acute illness and hypoxemia Plan: frequent neurochecks / check FSBS Q6H until she is alert enough to eat 4 JACOB Her Cr yesterday was 0.64, today it is 0.98. This is likey due to poor PO intake and COVID (40% of pts w COVID develop JACOB) Plan: IVF 5 Anemia / Thalassemia trait -Hematology consult notes reviewed Plan: trend HG 6 Developmental Disability Plan: hold oral meds until she is more alert DVT px w Lovenox 7 Hypothyroidism Plan: switch from PO to IV Levothyroxine 8 Chronic Constipation Plan: rectal suppositories while oral meds are on hold Disposition: return to [facility] after more than 2 midnights stay Home Medications Scheduled Baclofen (Baclofen) 20 Mg Tablet, 20 MG PO TID Duloxetine HCl (Duloxetine HCl) 60 Mg Capsule.dr, 60 MG PO QPM Esomeprazole Magnesium (Esomeprazole Magnesium Dr) 40 Mg Capsule.dr, 40 MG PO DAILY Folic Acid (Folic Acid) 1 Mg Tab, 1 MG PO DAILY Lactulose (Constulose) 10 Gm/15 Ml Millie, 30 ML PO QHS Levothyroxine Sodium (Euthyrox) 112 Mcg Tablet, 112 MCG PO DAILY Linaclotide (Linzess) 290 Mcg Capsule, 290 MCG PO QHS Lorazepam (Lorazepam) 2 Mg Tablet, 2 MG PO QHS Magnesium Hydroxide (Milk of Magnesia) 400 Mg/5 Ml Oral.susp, 20 ML PO DAILY for constipation DAY 1 NO BM Montelukast Sodium (Singulair) 10 Mg Tab, 10 MG PO QHS Risperidone (Risperdal) 1 Mg Tablet, 1 MG PO BID Risperidone (Risperidone) 0.5 Mg Tablet, 0.5 MG PO BID Sennosides/Docusate Sodium (Senna-Plus Tablet) 8.6 Mg-50 Mg Tablet, 2 TABS PO DAILY Topiramate (Topamax) 200 Mg Tab, 200 MG PO BID Tramadol HCl (Tramadol HCl ER) 300 Mg Tab, 300 MG PO QHS Scheduled PRN Bisacodyl (Bisacodyl) 10 Mg/30 Ml Enema, 10 MG DE DAILY PRN for CONSTIPATION DAY 3 NO BM Mineral Oil (Mineral Oil Enema) 133 Ml Enema, 1 EA DE DAILY PRN for CONSTIPATION DAYS 4 AND 5 NO BM Sodium Phosphate,[place]-Dibasic (Fleet Enema) 133 Ml Enema, 1 LUCI DE ONCE PRN for CONSTIPATION DAY 2 NO BM Allergies Coded Allergies: No Known Allergies (Verified , 01/10/19) A-FIB/CHADSVASC A-FIB History Current/History of A-Fib/PAF?: No Current PO Anticoag Therapy: No YOSELYN BORGES MD Feb 12, 2021 23:27
--- OUTSIDE RECORDS SUMMARY | 2021-02-12 23:37 | CCD ---
Author Author [facility] Organization [facility] Address Unknown Phone Unavailable Support Name Relationship Address Phone [place] [address] SHERLYN WONG Next Of Kin [address] [place] [address] JUSTINO GAITAN Next Of Kin [address] [place] [address] UNKNOWN, [facility] Next Of Kin Unknown Unavailable JEREMÍAS ANAYA Next Of Kin [address] [place] [id number] JR Next Of Kin Unknown Pili Hines Next Of Kin Unknown Unavailable FRANKLIN TRUJILLO Next Of Kin [address] [place] [address] FRANKLIN HORAN Next Of Kin [address] [place] [address] BULMARO, STAFF) DONNY([facility] Next Of Kin [address] [place] [address] DISABLED Next Of Kin Unknown DONNY BANKS Next Of Kin [address] [place] [id number] MARGARITA BRYANT Next Of Kin [address] [place] [address] Clay LINN Next Of Kin [address] [place] [id number] OLIVIER LINN Next Of Kin [phone] [address] JUSTINO GAITAN ECON [address] [place] [address] Unavailable Donny Banks ECON [address] [place] [address] Unavailable Pili Hines ECON Unknown Unavailable Care Team Providers Care Drum Drier Name Role Phone Nikhil Juárez MD Unavailable [...] Unavailable Nikhil Juárez MD Unavailable Unavailable Nikhil Jáurez MD Unavailable Unavailable Nikhil Juárez MD Unavailable [...] Juárez MD Unavailable Unavailable Fish, Alivia Rutledge [facility], PA-C Unavailable Unavailabl e Fish, Alivia Nunezen [facility], PA-C Unavailable Unavailabl e Fish, Alivia Maty [facility], PA-C Unavailable Unavailabl e Fish, Alivia Maty [facility], PA-C Unavailable Unavailabl e Fish, Alivia Maty [facility], PA-C Unavailable Unavailabl e Fish, Alivia Maty [facility], PA-C Unavailable Unavailabl e Fish, Alivia Maty [facility], PA-C Unavailable Unavailabl e Fish, Alivia Maty [facility], PA-C Unavailable Unavailabl e Fish, Alivia Maty MPAS, PA-C Unavailable Unavailabl e Fish, Alivia Maty MPAS, PA-C Unavailable Unavailabl e Fish, Alivia Maty [facility], PA-C Unavailable Unavailabl e Fish, Alivia Maty [facility], PA-C Unavailable Unavailabl e Fish, Alivia Maty MPAS, PA-C Unavailable Unavailabl e Fish, Alivia Maty MPAS, PA-C Unavailable Unavailabl e Fish, Alivia Maty MPAS, PA-C Unavailable Unavailabl e Fish, Alivia Maty MPAS, PA-C Unavailable Unavailabl e Fish, Alivia Maty [facility], PA-C Unavailable Unavailabl e Fish, Alivia Maty [facility], PA-C Unavailable Unavailabl e Fish, Alivia Maty [facility], PA-C Unavailable Unavailabl e Fish, Alivia Maty [facility], PA-C Unavailable Unavailabl e Fish, Alivia Maty [facility], PA-C Unavailable Unavailabl e Fish, [facility], PA-C Unavailable Unavailabl e Fish, [facility], PA-C Unavailable Unavailabl e Fish, [facility], PA-C Unavailable Unavailabl e Fish, [facility], PA-C Unavailable Unavailabl e Fish, [facility], PA-C Unavailable Unavailabl e Fish, [facility], PA-C Unavailable Unavailabl e Fish, [facility], PA-C Unavailable Unavailabl e Fish, [facility], PA-C Unavailable Unavailabl e Fish, [facility], PA-C Unavailable Unavailabl e Fish, [facility], PA-C Unavailable Unavailabl e Fish, [facility], PA-C Unavailable Unavailabl e Fish, [facility], PA-C Unavailable Unavailabl e Fish, [facility], PA-C Unavailable Unavailabl e Fish, [facility], PA-C Unavailable Unavailabl e Jose Luis, Vickie [...] Jose Luis, Vickie Brink MD Unavailable Unavailable Josel Uis, Vickie Brink MD Unavailable Unavailable Jose Luis, [...] ROGELIO PA Unavailable Unavailable Syed, Mariae Cinthya [employer]LE SQL DEVELOPER Unavailable Unavailable Syed, Mariae [place] ORACLE SQL DEVELOPER Unavailable Unavailable Syed, Mariae Cinthya ORACLE SQL DEVELOPER Unavailable Unavailable [place], Mariae [place] ORACLE SQL DEVELOPER Unavailable Unavailable [place], Mariae [place] ORACLE SQL DEVELOPER Unavailable Unavailable Syed, Mariae Cinthya ORACLE SQL DEVELOPER Unavailable Unavailable Syed, Mariae [place] ORACLE SQL DEVELOPER Unavailable Unavailable [place], Mariae Cinthya ORACLE SQL DEVELOPER Unavailable Unavailable Syed, Mariae [place] ORACLE SQL DEVELOPER Unavailable Unavailable Syed, Mariae Cinthya ORACLE SQL DEVELOPER Unavailable Unavailable Syed, Mariae [place] ORACLE SQL DEVELOPER Unavailable Unavailable [place], Mariae [place] ORACLE SQL DEVELOPER Unavailable Unavailable [place], Mariae [place] ORACLE SQL DEVELOPER Unavailable Unavailable Syed, Mariae [place] ORACLE SQL DEVELOPER Unavailable Unavailable [place], Mariae [place] ORACLE SQL DEVELOPER Unavailable Unavailable [place], Mariae [place] ORACLE SQL DEVELOPER Unavailable Unavailable Syed, Mariae Cinthya ORACLE SQL DEVELOPER Unavailable Unavailable ITALIA ROJAS MD Unavailable Unavailable [...] Unavailable Unavailable Yajaira Harp MD Unavailable Unavailable [place], Mariae [place] ORACLE SQL DEVELOPER Unavailable Unavailable [place], Mariae [place] ORACLE SQL DEVELOPER Unavailable Unavailable Syed, Mariae [place] ORACLE SQL DEVELOPER Unavailable Unavailable Syed, Mariae [place] ORACLE SQL DEVELOPER Unavailable Unavailable Syed, Mariae [place] ORACLE SQL DEVELOPER Unavailable Unavailable [place], Mariae Cinthya ORACLE SQL DEVELOPER Unavailable Unavailable [place], Mariae [place] ORACLE SQL DEVELOPER Unavailable Unavailable [place], Mariae [place] ORACLE SQL DEVELOPER Unavailable Unavailable [place], Mariae [place] ORACLE SQL DEVELOPER Unavailable Unavailable [place], Mariae Cinthya ORACLE SQL DEVELOPER Unavailable Unavailable [place], Loretoe Cinthya ORACLE SQL DEVELOPER Unavailable Unavailable [place], Mariae Cinthya ORACLE SQL DEVELOPER Unavailable Unavailable [place], Mariae [place] ORACLE SQL DEVELOPER Unavailable Unavailable [place], Loretoe Cinthya ORACLE SQL DEVELOPER Unavailable Unavailable Syed, Loretoe [place] ORACLE SQL DEVELOPER Unavailable Unavailable Syed, Loretoe [place] ORACLE SQL DEVELOPER Unavailable Unavailable Syed, Loretoe [place] ORACLE SQL DEVELOPER Unavailable Unavailable ITALIA ROJAS MD Unavailable Unavailable [...] LIDIA DPM [facility] Unavailable Unavailable DEMAR, J ILDIA DPM [facility] Unavailable Unavailable Motley, [place] Unavailable Unavailable [place], [place] Unavailable Unavailable [place], [place] Unavailable Unavailable [place]ley, [place] Unavailable Unavailable Motley, [place] Unavailable Unavailable Motley, [place] Unavailable Unavailable [place]ley, [place] Unavailable Unavailable Motley, [place] Unavailable Unavailable Motley, [place] Unavailable Unavailable Motley, [place] Unavailable Unavailable Motley, [place] Unavailable Unavailable [place]ley, [place] Unavailable Unavailable [place]ley, [place] Unavailable Unavailable HandyYajaira MD Unavailable Unavailable HandyYajaira MD Unavailable Unavailable HandyYajaira MD Unavailable Unavailable HandyYajaira MD Unavailable Unavailable HandyYajaira MD Unavailable Unavailable HandyYajaira MD Unavailable Unavailable HandyYajaira MD Unavailable Unavailable HandyYajaira MD Unavailable Unavailable HandyYajaira MD Unavailable Unavailable HandyYajaira MD Unavailable Unavailable HandyYajaira MD Unavailable Unavailable HandyYajaira MD Unavailable Unavailable HandyYajaira MD Unavailable Unavailable [facility] Unavailable Unavailable DANIEL AGOSTO MD Unavailable Unavailable [...] COLLIN EMILY MD Unavailable Unavailable NAVARRO, BREE ABDEIL ORACLE SQL DEVELOPER Unavailable Unavailable NAVARRO, BREE ADBIEL ORACLE SQL DEVELOPER Unavailable Unavailable NAVARRO, BREE ABDIEL ORACLE SQL DEVELOPER Unavailable Unavailable NAVARRO, BREE ABDIEL ORACLE SQL DEVELOPER Unavailable Unavailable NAVARRO, BREE ABDIEL ORACLE SQL DEVELOPER Unavailable Unavailable NAVARRO, BREE ABDIEL ORACLE SQL DEVELOPER Unavailable Unavailable NAVARRO, BREE ABDIEL ORACLE SQL DEVELOPER Unavailable Unavailable NAVARRO, BREE ABDIEL ORACLE SQL DEVELOPER Unavailable Unavailable NAVARRO, BREE ABDIEL ORACLE SQL DEVELOPER Unavailable Unavailable NAVARRO, BREE ABDIEL ORACLE SQL DEVELOPER Unavailable Unavailable NAVARRO, BREE ABDIEL ORACLE SQL DEVELOPER Unavailable Unavailable NAVARRO, BREE ABDIEL ORACLE SQL DEVELOPER Unavailable Unavailable NAVARRO, BREE ABDIEL ORACLE SQL DEVELOPER Unavailable Unavailable NAVARRO, BREE ABDIEL ORACLE SQL DEVELOPER Unavailable Unavailable NAVARRO, BREE ABDIEL ORACLE SQL DEVELOPER Unavailable Unavailable NAVARRO, BREE ABDIEL ORACLE SQL DEVELOPER Unavailable Unavailable NAVARRO, BREE ABDIEL ORACLE SQL DEVELOPER Unavailable Unavailable NAVARRO, BREE ABDIEL ORACLE SQL DEVELOPER Unavailable Unavailable NAVARRO, BREE ABDIEL ORACLE SQL DEVELOPER Unavailable Unavailable NAVARRO, BREE ABDIEL ORACLE SQL DEVELOPER Unavailable Unavailable NAVARRO, BREE ABDIEL ORACLE SQL DEVELOPER Unavailable Unavailable NAVARRO, BREE ABDIEL ORACLE SQL DEVELOPER Unavailable Unavailable NAVARRO, BREE ABDIEL ORACLE SQL DEVELOPER Unavailable Unavailable UR STACI, COLLIN EMILY MD [...] Brink MD Unavailable Unavailable Jose Luis, Vickie Brikn MD Unavailable Unavailable Jose Luis, Vickie Brink [...] Brink MD Unavailable Unavailable Jose Luis, Vickie Brikn MD Unavailable Unavailable Jose Luis, Vickie Brink MD Unavailable Unavailable Jose Luis, Vickie Brink MD Unavailable Unavailable Jose Luis, Vickie Brink MD Unavailable Unavailable Jose Luis, Vickie Brink MD Unavailable Unavailable Jose Ulis, Vickie Brink MD Unavailable Unavailable Jose Luis, Vickie Brink MD Unavailable Unavailable Jose Luis, Vickie Brink MD Unavailable Unavailable Jose Luis, C Cuba MD Unavailable Unavailable Jose Luis, C Cuba MD Unavailable Unavailable Jose Luis, C Cuba MD Unavailable Unavailable Jose Luis, C Cuba MD Unavailable Unavailable Jose Luis, C Cuba MD Unavailable Unavailable Ojse Luis, C Cuba MD Unavailable Unavailable Jose [...] is protected by Article 27-F of the [facility] Public Health law. If you continue you may have access to information: Regarding HIV / AIDS; Provided by facilities licensed or operated by the [facility] Office of Mental Health; or Provided by the [facility] Office for People With Developmental Disabilities. If such information is present, then the following [facility] mandated warning applies: This information has been [...] law may result in a fine or detention sentence or both. A general authorization for the release of medical or other information is NOT sufficient authorization for further disc losure. Allergies and Adverse Reactions Type Description Substance Reaction Status Data Source(s ) No Known Drug Allergies No Known Drug Allergies [facility] Allergy to substance Allergy to substance Allergy to substance [place] ([facility]) Allergy to substance Allergy to substance Allergy to substance [place] ([facility]) Allergy to substance Allergy to substance Allergy to substance [place] ([facility]) Family History Family Member Name Family Member Gender Family Member Status Date o f Status Description Data Source(s) Unknown Unknown Problem [facility] ([facility]) Encounters Encounter Providers Location Date Indications Data Source(s ) OFFICE OUTPATIENT VISIT 15 MINUTES Attender: Maty SILVA PA-C Physical Therapy 01/20/2021 09:30:00 AM EDT [facility] ([facility]) Outpatient Attender: ROGELIO BURCH Family Practice 01/19 12:20:00 PM EDT [facility] ([facility]) Outpatient Attender: ROGELIO MANSFIELD PAConsultant: Cuba walker MD 01/19/2021 12:19:00 PM EDT - 01/19/2021 12:19:00 PM EDT [facility] Outpatient Attender: ABDIEL NAVARRO NPConsultant: Cuba toribio MD 01/12/2021 10:02:00 AM EDT - 01/12/2021 10:02:00 AM EDT [facility] Outpatient Attender: ABDIEL NAVARRO ORACLE SQL DEVELOPER Family Practice 01/12/2021 09 :30:00 AM EDT [facility] ([facility]) Outpatient Attender: Cinthya Lynch ANIKET eferrer: Cinthya Lynch NPConsultant: Cuba Amaya MD 12/29/2020 04:39:00 PM EDT - 12/29/2020 04:49:0 0 PM EDT [facility] Emergency Attender: MIHAELA MENENDEZ MDConsultant: Cuba deluna MD 12/15/2020 11:36:00 PM EDT - 12/16/2020 05:44:00 AM EDT [facility] Patient discharged. Outpatient Attender: JAILYN AGOSTO MD [facility] Internal Med at [facility] 09/19/2020 02:14:00 AM EDT [facility] ([facility]) Inpatient Attender: Ja Harp MDA ttender: ITALIA ROJAS MDAttender: EMILY SMALL MDAdmitter: ITALIA ROJAS MD 09/18/2020 09:04:16 PM EDT [facility] ( in Healthcare facility) Attender: Jossie Harp MDAttender: ITALIA ROJAS MDAdmitter: ITALIA ROJAS MDConsultant: OUT OF AREA PCP, PT Does Not have 09/18/2020 08:47:00 PM EDT - 09/24/2020 12:01:00 PM EDT [facility] Inpatient Attender: Ja Harp MDA ttender: ITALIA ROJAS MDAttender: EMILY SMALL MDAdmitter: ITALIA ROJAS MD 09/18/2020 08:47:0 0 PM EDT - 09/24/2020 12:01:00 PM EDT GAIT INSTABILITY DISPGIA [facility] GAIT INSTABILITY DISPHAGIA Patient discharged. Inpatient Attender: Ad Lawrence MDAttender : JONY AGARWAL MDConsultant: Cuba Amaya MD 09/17/2020 04:09:00 PM EDT - 09/18/2020 07:01:00 PM EDT [facility] Patient discharged. Outpatient Attender: [facility] 09/17/2020 03:2 5:00 PM EDT [facility] Emergency Attender: Ad Lawrence MD 09/17/2020 09:12:00 AM EDT - 09/17/2020 04:09:00 PM EDT [facility] Outpatient<td ID="encounterTypeDescripti onID0">STANDARD OV</td><td>Cinthya Lynch NP</td><td>[facility]</td><td>09/17/2020</td><td>8:05AM</td><td>8:35AM</td><td><content ID="encounterDiagnosisID0-0">Working Diagnosis of Urinary Tract Infection</content>, <content ID="encounterDiagnosisID0-1">Disorder of Muscle Weakness (Generalized)</content>, <content ID="encounterDiagnosisID0-2">Vomiting</content></td> Attender: [facility] 09/17/2020 08:05:00 AM EDT - 09/17/2020 08:35:00 AM EDT VomitingDisorder of Muscle Weakness (Gen eralized)Working Diagnosis of Urinary Tract Infection [place] ([facility]) Vomiting Disorder of Muscle Weakness (Generalized ) Working Diagnosis of Urinary Tract Infec tion <td ID="encounterTypeDescriptionID1">EXT ENDED VISIT</td><td>Cinthya Lynch NP</td><td>[facility]</td><td>09/09/2020</td><td>8:33AM</td><td>9:26AM</td><td><content ID="encounterDiagnosisID1-0">Fatigue</content>, <content ID="encounterDiagnosisID1-1">Disorder of Muscle Weakness (Generalized)</content></td>Outpatient Attender: [facility] 09/09/2020 08:33:00 AM EDT - 09/09/2020 09:26:00 AM ED T Disorder of Muscle Weakness (Generalized)FatigueDisorder of Muscle Weakness (Generalized)Fatigue [place] ([facility]) Disorder of Muscle Weakness (Generalized ) Fatigue Disorder of Muscle Weakness (Generalized ) Fatigue Outpatient Attender: ILDIA BENZ DPM PCConsultant: Kory Amaya MD 08/30/2020 08:16:00 AM EDT - 08/30/2020 08:16:00 AM EDT [facility] <td ID="encounterTypeDescriptionID2">EXT ENDED VISIT</td><td>Cinthya Belkys Lynch NP</td><td>[facility]</td><td>08/04/2020</td><td>10:46AM</td><td>11:25AM</td><td><content ID="encounterDiagnosisID2-0">Constipation</content>, <content ID="encounterDiagnosisID2-1">Hypothyroidism</content>, <content ID="encounterDiagnosisID2-2">Muscle Spasm</content>, <content ID="encounterDiagnosisID2-3">Irritable Bowel Syndrome with Constipation</content></td>Outpatient Attender: Cinthya Lynch NP [facility] 08/04/2020 10:46:00 AM EDT - 08/04/2020 11:25:00 AM ED T Irritable Bowel Syndrome with ConstipationMuscle SpasmHypothyroidismIrritable Bowel Syndrome with ConstipationMuscle SpasmHypothyroidismIrritable Bowel Syndrome with ConstipationMuscle SpasmHypothyro idismConstipationConstipationConstipation [place] ([facility]) Irritable Bowel Syndrome with Constipati on Muscle Spasm Hypothyroidism Irritable Bowel Syndrome with Constipati on Muscle Spasm Hypothyroidism Irritable Bowel Syndrome with Constipati on Muscle Spasm Hypothyroidism Constipation Constipation Constipation Outpatient Attender: LIDIA BENZ DPM PCConsultant: Kory Amaya MD 07/07/2020 08:17:00 AM EST - 07/07/2020 08:17:00 AM [facility] Outpatient Attender: ROGELIO MANSFIELD PAConsultant: Cuba walker MD 07/02/2020 08:05:00 AM EST - 07/02/2020 08:05:00 AM [facility] Outpatient Attender: ROGELIO BURCH Family Practice 07/02 07:00:00 AM EST [facility] ([facility]) Enid Tiesha, DESK CLERK-C: [address] [place], [place] [id number], Ph. Attender: Enid Motley [facility] Medical 05/27/2020 12:00:00 AM EST [place] ([facility]) Outpatient Attender: LIDIA BENZ DPM PCConsultant: Kory Amaya MD 04/28/2020 08:14:00 AM EST - 04/28/2020 08:14:00 AM [facility] Ricci Juárez MD: [address] [place] [phone], Ph. Attender: Ricci Juárez MD [facility] Medical 04/28/2020 12:00:00 AM EST [place] ([facility]) Ricci Juárez MD: [address] [place] [phone], Ph. Attender: Ricci Juárez MD [facility] Medical 04/28/2020 12:00:00 AM EST [place] ([facility]) Ricci Juárez MD: [address] [place] [phone], Ph. Attender: Ricci Juárez MD [facility] Medical 04/28/2020 12:00:00 AM EST [place] ([facility]) Outpatient Attender: ROGELIO MANSFIELD PAConsultant: Cuba walker MD 04/18/2020 08:31:00 AM EST - 04/18/2020 09:31:00 AM [facility] Outpatient<td ID="encounterTypeDescripti onID3">CLINICAL USE ONLY</td><td>Cinthya Lynch ORACLE SQL DEVELOPER</td><td>Family Medicine [facility],</td><td>06/26/2020</td><td>04/15/2020 2:50PM</td><td>04/15/2020 11:59PM</td><td></td> Attender: Cinthya Syed GUZMAN [facility], 04/15/2020 02:50:00 PM EST - 04/15/2020 11:59:00 PM EST [place] ([facility]) <td ID="encounterTypeDescriptionID4">STA NDARD OV</td><td>Cinthya Rizvi [place] ORACLE SQL DEVELOPER</td><td>[facility],</td><td>04/15/2020</td><td>9:11AM</td><td>10:14AM</td><td><content ID="encounterDiagnosisID4-0">Hypothyroidism</content>, <content ID="encounterDiagnosisID4-1">Muscle Spasm</content>, <content ID="encounterDiagnosisID4-2">Constipation</content></td>Outpatient Attender: Cinthya Syed GUZMAN [facility], 04/15/2020 09:11:00 AM EST - 04/15/2020 10:14:00 AM EST Muscle SpasmHypothyroidismMuscle SpasmHypothyroidismMuscle SpasmHypothyroidismMuscle SpasmHypothyroidismConstipationConstipationConstipationConstipation [place] ([facility]) Muscle Spasm Hypothyroidism Muscle Spasm Hypothyroidism Muscle Spasm Hypothyroidism Muscle Spasm Hypothyroidism Constipation Constipation Constipation Constipation Outpatient Attender: ROGELIO MANSFIELD PAAt tender: LIDIA BENZ DPM PCConsultant: Cuba Amaya MD 04/05/2020 08:07:00 AM EST - 04/05/2020 08:07:0 0 AM EST [facility] Outpatient Attender: Cuba Amaya MDConsultant: Cuba walker MD 02/25/2020 07:44:00 AM EDT - 02/25/2020 08:44:00 AM EDT [facility] Outpatient Attender: LIDIA BENZ DPM PCAttender: ROGELIO MANSFIELD PAConsultant: Cuba Amaya MD 01/28/2020 08:35:00 AM EDT - 01/28/2020 08:35:0 0 AM EDT [facility] <td ID="encounterTypeDescriptionID5">RX UPDATE</td><td>Cuba Amaya MD</td><td></td><td>03/30/2020</td><td>12/31/2019 12:34PM</td><td>12/31/2019 11:59PM</td><td></td>Outpatient Attender: Cuba Amaya MD 0 12/31/2019 12:34:00 PM EDT - 12/31/2019 11:59:00 PM EDT [facility]) Outpatient<td ID="encounterTypeDescripti onID6">STANDARD OV</td><td>Cuba Amaya MD</td><td>[facility]</td><td>12/31/2019</td><td>9:48AM</td><td>10:28AM</td><td><content ID="encounterDiagnosisID6-0">Anemia Normochromic, Normocytic</content>, <content ID="encounterDiagnosisID6-1">Xerosis Cutis</content>, <content ID="encounterDiagnosisID6-2">Assessment of Excessive Saliva (Ptyalism)</content>, <content ID="encounterDiagnosisID6-3">Cerumen Impaction</content>, <content ID="encounterDiagnosisID6-4">Obesity</content></td> Attender: Cuba Amaya MD [facility] 12/31/2019 09:48:00 AM EDT - 12/31/2019 10:28:00 AM EDT ObesityCerumen ImpactionAssessment of Ex cessive Saliva (Ptyalism)Xerosis CutisAnemia Normochromic, NormocyticObesityCerumen ImpactionAssessment of Excessive Saliva (Ptyalism)Xerosis CutisAnemia Normochromic, NormocyticObesityCerumen ImpactionAssessment of Excessive Saliva (Ptyalism)Xerosis CutisAnemia Normochromic, NormocyticObesityCerumen ImpactionAssessment of Excessive Saliva (Ptyalism)Xerosis CutisAnemia Normochromic, NormocyticObesityCerumen ImpactionAssessment of Excessive Saliva (Ptyalism)Xerosis CutisAnemia Normochromic, Normocytic [place] ([facility]) Obesity Cerumen Impaction Assessment of Excessive Saliva [...] 11 :47:43 AM EST completed .5 mL [place] ([facility]) COVID-19 VACCINE Moderna 05/27/2020 12:00:00 AM EST completed [employer] Vaccine Series Complete: YESThis Data wa s Submitted to [facility] Via [employer]. COVID-19, mRNA, LNP-S, PF, 100 mcg/0.5 mL dose 04/28/2020 02 :32:14 PM EST completed .5 mL [place] ([facility]) COVID-19, mRNA, LNP-S, PF, 100 mcg/0.5 mL dose 04/28/2020 02 :32:14 PM EST completed .5 mL [place] ([facility]) COVID-19, mRNA, LNP-S, PF, 100 mcg/0.5 mL dose 04/28/2020 02 :32:14 PM EST completed .5 mL [place] ([facility]) COVID-19 VACCINE Moderna 04/28/2020 12:00:00 AM EST completed [employer] Vaccine Series Complete: NOThis Data was Submitted to [facility] Via [employer] other things you bake. Medications Medication Brand Name Start Date Product Form Dose Route Admi nistrative Instructions Pharmacy Instructions Status Indications Reaction Description Data Source(s) Magnesium Hydroxide 80 MG/ML Oral Suspension Milk Of Magnesi a 12/17/2020 12:00:00 AM EDT ORAL active M [facility] ([facility]) Esomeprazole 40 MG Delayed Release Oral Capsule Esomeprazole Magnesium 12/17/2020 12:00:00 AM EDT ORAL active [facility] ([facility]) Lorazepam 2 MG Oral Tablet Lorazepam 12/17/2020 12:00:00 AM EDT ORAL active [facility] ([facility]) Baclofen 10 MG Oral Tablet Baclofen 12/17/2020 12:00:00 AM EDT ORAL active [facility] ([facility]) Miralax 12/17/2020 12:00:00 AM EDT active [facility] ([facility]) Docusate Sodium 100 MG Oral Capsule [Colace] Colace 12:00:00 AM EDT ORAL active [facility] ( [facility]) Risperidone 0.5 MG Oral Tablet Risperidone 12/17/2020 12:00:00 AM EDT ORAL active [facility] ([facility]) Docusate Sodium 100 MG Oral Capsule [Colace] Colace 10 0 MG Oral Capsule Colace 100 MG Oral Capsule 09/09/2020 12:00:00 AM EDT active docusate sodium 100 MG Oral Capsule [Colace] [place] ([facility]) Multivitamin Oral Tablet Multivitamin Oral Tablet 08/07/2020 12:00: 00 AM EDT active Multivitamin [place] ([facility]) Senna Laxative 8.6 MG Oral Tablet Senna Laxative 8.6 MG Oral Tablet 08/04/2020 12:00:00 AM EDT aborted Senna L axative [place] ([facility]) montelukast 10 MG Oral Tablet Montelukast Sodium 10 MG Oral Tablet Montelukast Sodium 10 MG Oral Tablet 08/04/2020 12:00:00 AM EDT active montelukast 10 MG Oral Tablet [facility]) POLYETHYLENE GLYCOL 3350 142 MG/ML Oral Solution [Miralax] MiraLax 17 GM/SCOOP Oral Powder MiraLax 17 GM/SCOOP Oral Powder 08/04/2020 12:00:00 AM EDT active polyethylene gly col 3350 51496 MG Powder for Oral Solution [Miralax] [facility]) Omeprazole 40 MG Delayed Release Oral Ca psule Omeprazole 40 MG Oral Capsule Delayed Release Omeprazole 40 MG Oral Capsule Delayed Release 08/05/19 12:00:00 AM EDT active omeprazole 40 MG Delayed Release Oral Capsule [facility]) Lactulose 667 MG/ML Oral Solution [Const ulose] Constulose 10 GM/15ML Oral Solution Constulose 10 GM/15ML Oral Solution 08/04/2020 12:00:00 AM EDT active lactulose 667 MG/ML Oral Millie ution [Constulose] [facility]) Baclofen 20 MG Oral Tablet Baclofen 20 MG Oral Tablet 2020 12:00:00 AM EDT active baclofen 20 MG Or al Tablet [facility]) Karolina Allergy 180 MG Oral Tablet Karolina Allergy 180 MG Or al Tablet 08/04/2020 12:00:00 AM EDT active Karolina Allergy [facility]) Folic Acid 1 MG Oral Tablet Folic Acid 1 MG Oral Tablet 10/2020 12:00:00 AM EDT active folic acid 1 MG O ral Tablet [facility]) calcium polycarbophil 625 MG Oral Tablet [FiberCon] Fi berCon 625 MG Oral Tablet FiberCon 625 MG Oral Tablet 08/04/2020 12:00:00 AM EDT active calcium polycarbophil 625 MG Oral Tablet [FiberCon] [facility]) carbamide peroxide 65 MG/ML Otic Solution [Debrox] Paula mirza 6.5% Otic Solution Debrox 6.5% Otic Solution 08/04/2020 12:00:00 AM EDT active carbamide peroxide 65 MG/ML Otic Solution [Debrox] [facility]) Levothyroxine Sodium 0.112 MG Oral Table t Levothyroxine Sodium 112 MCG Oral Tablet Levothyroxine Sodium 112 MCG Oral Tablet 08/04/2020 12:00:00 AM EDT 1 active levothyroxine sodium 0.112 MG Oral Tablet [facility]) linaclotide 0.145 MG Oral Capsule [Linzess] Linzess 14 5 MCG Oral Capsule Linzess 145 MCG Oral Capsule 08/04/2020 12:00:00 AM EDT 1 active linaclotide 0.145 MG Oral Capsule [Linzess] [facility]) Docusate Sodium 100 MG Oral Capsule [Colace] Colace 10 0 MG Oral Capsule Colace 100 MG Oral Capsule 08/04/2020 12:00:00 AM EDT aborted docusate sodium 100 MG Oral Capsule [Colace] [facility]) Kariva 0.15-0.02/0.01 MG (21/5) Oral Tablet Kariva 0.1 5-0.02/0.01 MG (21/5) Oral Tablet 08/04/2020 12:00:00 AM EDT 1 active {21 (desogestrel 0.15 MG / ethinyl estradiol 0.02 MG Oral Tablet) / 5 (ethinyl estradiol 0.01 MG Oral Tablet) / 2 (inert ingredients 1 MG Oral Tablet) } Pack [Kariva 28 Day] [place] ([facility]) Sodium Phosphate, Dibasic 35.5 MG/ML / S odium Phosphate, Monobasic 96.4 MG/ML Enema Fleet Enema 7-19 GM/118ML Rectal Fleet Enema 7-19 GM/118ML Rectal 08/04/2020 12:00:00 AM EDT 1 active sodium phosphate, dibasic 35.5 MG/ML / sodium phosphate, monobasic 96.4 MG/ML Enema [facility]) traMADol HCl ER (Biphasic) 300 MG Oral Tablet Extended Release 24 Hour traMADol HCl ER (Biphasic) 300 MG Oral Tablet Extended Release 24 Hour 07/05/2020 12:00:00 AM EST aborted Matrix Delivery 24 HR tramadol hydrochloride 300 MG Extended Release Oral Tablet [facility]) traMADol HCl ER (Biphasic) 300 MG Oral Tablet Extended Release 24 Hour traMADol HCl ER (Biphasic) 300 MG Oral Tablet Extended Release 24 Hour 07/05/2020 12:00:00 AM EST active Matrix Delivery 24 HR tramadol hydrochloride 300 MG Extended Release Oral Tablet [facility]) 24 HR tramadol hydrochloride 300 MG Exte nded Release Oral Capsule traMADol HCl ER 300 MG Oral Capsule Extended Release 24 Hour traMADol HCl ER 300 MG Oral Capsule Extended Release 24 Hour 06/28/2020 12:00:00 AM EST 1 aborted 24 HR tramadol hydrochloride 300 MG Extended Release O ral Capsule [facility]) calcium polycarbophil 625 MG Oral Tablet [FiberCon] Fi berCon 625 MG Oral Tablet FiberCon 625 MG Oral Tablet 04/15/2020 12:00:00 AM EST aborted calcium polycarbophil 625 MG Oral Tablet [FiberCon] [facility]) Sodium Phosphate, Dibasic 35.5 MG/ML / S odium Phosphate, Monobasic 96.4 MG/ML Enema Fleet Enema 7-19 GM/118ML Rectal Fleet Enema 7-19 GM/118ML Rectal 04/15/2020 12:00:00 AM EST 1 aborted sodium phosphate, dibasic 35.5 MG/ML / sodium phosphate, monobasic 96.4 MG/ML Enema [facility]) Lactulose 667 MG/ML Oral Solution [Const ulose] Constulose 10 GM/15ML Oral Solution Constulose 10 GM/15ML Oral Solution 04/15/2020 12:00:00 AM EST aborted lactulose 667 MG/ML Oral Millie ution [Constulose] [facility]) carbamide peroxide 65 MG/ML Otic Solution [Debrox] Paula mirza 6.5% Otic Solution Debrox 6.5% Otic Solution 04/15/2020 12:00:00 AM EST aborted carbamide peroxide 65 MG/ML Otic Solution [Debrox] [facility]) linaclotide 0.145 MG Oral Capsule [Linzess] Linzess 14 5 MCG Oral Capsule Linzess 145 MCG Oral Capsule 04/15/2020 12:00:00 AM EST 1 aborted linaclotide 0.145 MG Oral Capsule [Linzess] [facility]) Baclofen 20 MG Oral Tablet Baclofen 20 MG Oral Tablet 2019 12:00:00 AM EST aborted baclofen 20 MG O ral Tablet [facility]) Docusate Sodium 100 MG Oral Capsule [Colace] Colace 10 0 MG Oral Capsule Colace 100 MG Oral Capsule 04/15/2020 12:00:00 AM EST aborted docusate sodium 100 MG Oral Capsule [Colace] [place] ([facility]) Karolina Allergy 180 MG Oral Tablet Karolina Allergy 180 MG Or al Tablet 04/15/2020 12:00:00 AM EST aborted Allegr a Allergy [facility]) montelukast 10 MG Oral Tablet Montelukast Sodium 10 MG Oral Tablet Montelukast Sodium 10 MG Oral Tablet 04/15/2020 12:00:00 AM EST aborted montelukast 10 MG Oral Tablet [facility]) Omeprazole 40 MG Delayed Release Oral Ca psule Omeprazole 40 MG Oral Capsule Delayed Release Omeprazole 40 MG Oral Capsule Delayed Release 04/15/20 12:00:00 AM EST aborted omeprazole 40 MG Delayed Release Oral Capsule [facility]) Folic Acid 1 MG Oral Tablet Folic Acid 1 MG Oral Tablet 03/30 12:00:00 AM EST aborted folic acid 1 MG Oral Tablet [facility]) Levothyroxine Sodium 0.112 MG Oral Table t Levothyroxine Sodium 112 MCG Oral Tablet Levothyroxine Sodium 112 MCG Oral Tablet 04/15/2020 12:00:00 AM EST 1 aborted levothyroxine sodium 0.112 MG Oral Tablet [facility]) Kariva 0.15-0.02/0.01 MG (21/5) Oral Tablet Kariva 0.1 5-0.02/0.01 MG (21/5) Oral Tablet 04/15/2020 12:00:00 AM EST 1 aborted {21 (desogestrel 0.15 MG / ethinyl estradiol 0.02 MG Oral Tablet) / 5 (ethinyl estradiol 0.01 MG Oral Tablet) / 2 (inert ingredients 1 MG Oral Tablet) } Pack [Kariva 28 Day] [place] ([facility]) 24 HR tramadol hydrochloride 300 MG Exte nded Release Oral Capsule traMADol HCl ER 300 MG Oral Capsule Extended Release 24 Hour traMADol HCl ER 300 MG Oral Capsule Extended Release 24 Hour 03/30/2020 12:00:00 AM EST 1 aborted 24 HR tramadol hydrochloride 300 MG Extended Release O ral Capsule [place] ([facility]) Levothyroxine Sodium 0.112 MG Oral Table t Levothyroxine Sodium 112 MCG Oral Tablet Levothyroxine Sodium 112 MCG Oral Tablet 03/17/2020 12:00:00 AM EST 1 aborted levothyroxine sodium 0.112 MG Oral Tablet [facility]) Kariva 0.15-0.02/0.01 MG (21/5) Oral Tablet Kariva 0.1 5-0.02/0.01 MG (21/5) Oral Tablet 01/27/2020 12:00:00 AM EDT 1 aborted {21 (desogestrel 0.15 MG / ethinyl estradiol 0.02 MG Oral Tablet) / 5 (ethinyl estradiol 0.01 MG Oral Tablet) / 2 (inert ingredients 1 MG Oral Tablet) } Pack [Kariva ] [place] ([facility]) Sodium Phosphate, Dibasic 35.5 MG/ML / S odium Phosphate, Monobasic 96.4 MG/ML Enema Fleet Enema 7-19 GM/118ML Rectal Fleet Enema 7-19 GM/118ML Rectal 12/31/2019 12:00:00 AM EDT 1 aborted sodium phosphate, dibasic 35.5 MG/ML / sodium phosphate, monobasic 96.4 MG/ML Enema [facility]) 24 HR tramadol hydrochloride 300 MG Exte nded Release Oral Capsule traMADol HCl ER 300 MG Oral Capsule Extended Release 24 Hour traMADol HCl ER 300 MG Oral Capsule Extended Release 24 Hour 12/31/2019 12:00:00 AM EDT 1 aborted 24 HR tramadol hydrochloride 300 MG Extended Release O ral Capsule [facility]) montelukast 10 MG Oral Tablet Montelukast Sodium 10 MG Oral Tablet Montelukast Sodium 10 MG Oral Tablet 12/23/2019 12:00:00 AM EDT aborted montelukast 10 MG Oral Tablet [facility]) Levothyroxine Sodium 0.112 MG Oral Table t [Synthroid] Synthroid 112 MCG Oral Tablet Synthroid 112 MCG Oral Tablet 12/23/2019 12:00:00 AM EDT aborted levothyroxine sodium 0.112 MG Or al Tablet [Synthroid] [place] ([facility]) Baclofen 20 MG Oral Tablet Baclofen 20 MG Oral Tablet 2019 12:00:00 AM EDT aborted baclofen 20 MG O ral Tablet [facility]) Docusate Sodium 100 MG Oral Capsule [Colace] Colace 10 0 MG Oral Capsule Colace 100 MG Oral Capsule 12/23/2019 12:00:00 AM EDT aborted docusate sodium 100 MG Oral Capsule [Colace] [facility]) Karolina Allergy 180 MG Oral Tablet Karolina Allergy 180 MG Or al Tablet 12/23/2019 12:00:00 AM EDT aborted Allegr a Allergy [place] ([facility]) Lactulose 667 MG/ML Oral Solution [Const ulose] Constulose 10 GM/15ML Oral Solution Constulose 10 GM/15ML Oral Solution 12/23/2019 12:00:00 AM EDT aborted lactulose 667 MG/ML Oral Millie ution [Constulose] [facility]) Omeprazole 40 MG Delayed Release Oral Ca psule Omeprazole 40 MG Oral Capsule Delayed Release Omeprazole 40 MG Oral Capsule Delayed Release 12/23/19 12:00:00 AM EDT aborted omeprazole 40 MG Delayed Release Oral Capsule [facility]) calcium polycarbophil 625 MG Oral Tablet [FiberCon] Fi berCon 625 MG Oral Tablet FiberCon 625 MG Oral Tablet 12/23/2019 12:00:00 AM EDT aborted calcium polycarbophil 625 MG Oral Tablet [FiberCon] [facility]) Multi Vitamin Daily Oral Tablet Multi Vitamin Daily Oral Tab let 12/23/2019 12:00:00 AM EDT 1 aborted Multi V itamin Daily [place] ([facility]) linaclotide 0.145 MG Oral Capsule [Linzess] Linzess 14 5 MCG Oral Capsule Linzess 145 MCG Oral Capsule 12/23/2019 12:00:00 AM EDT 1 aborted linaclotide 0.145 MG Oral Capsule [Linzess] [facility]) Folic Acid 1 MG Oral Tablet Folic Acid 1 MG Oral Tablet 11/29 12:00:00 AM EDT aborted folic acid 1 MG Oral Tablet [facility]) Kariva 0.15-0.02/0.01 MG (21/5) Oral Tablet Kariva 0.1 5-0.02/0.01 MG (21/5) Oral Tablet 12/22/2019 12:00:00 AM EDT 1 aborted {21 (desogestrel 0.15 MG / ethinyl estradiol 0.02 MG Oral Tablet) / 5 (ethinyl estradiol 0.01 MG Oral Tablet) / 2 (inert ingredients 1 MG Oral Tablet) } Pack [Kariva 28 Day] [facility]) carbamide peroxide 65 MG/ML Otic Solution [Debrox] Paula mirza 6.5% Otic Solution Debrox 6.5% Otic Solution 11/10/2019 12:00:00 AM EDT aborted carbamide peroxide 65 MG/ML Otic Solution [Debrox] [facility]) Omeprazole 40 MG Delayed Release Oral Ca psule Omeprazole 40 MG Oral Capsule Delayed Release Omeprazole 40 MG Oral Capsule Delayed Release 11/03/19 12:00:00 AM EDT aborted omeprazole 40 MG Delayed Release Oral Capsule [facility]) 24 HR tramadol hydrochloride 300 MG Exte nded Release Oral Capsule traMADol HCl ER 300 MG Oral Capsule Extended Release 24 Hour traMADol HCl ER 300 MG Oral Capsule Extended Release 24 Hour 10/07/2019 12:00:00 AM EDT 1 aborted 24 HR tramadol hydrochloride 300 MG Extended Release O ral Capsule [facility]) Karolina Allergy 180 MG Oral Tablet Karolina Allergy 180 MG Or al Tablet 10/06/2019 12:00:00 AM EDT aborted Allegr a Allergy [facility]) Docusate Sodium 100 MG Oral Capsule [Colace] Colace 10 0 MG Oral Capsule Colace 100 MG Oral Capsule 10/06/2019 12:00:00 AM EDT aborted docusate sodium 100 MG Oral Capsule [Colace] [place] ([facility]) Multi Vitamin Daily Oral Tablet Multi Vitamin Daily Oral Tab let 10/06/2019 12:00:00 AM EDT 1 aborted Multi V itamin Daily [place] ([facility]) Levothyroxine Sodium 0.112 MG Oral Table t [Synthroid] Synthroid 112 MCG Oral Tablet Synthroid 112 MCG Oral Tablet 10/06/2019 12:00:00 AM EDT aborted levothyroxine sodium 0.112 MG Or al Tablet [Synthroid] [place] ([facility]) Baclofen 20 MG Oral Tablet Baclofen 20 MG Oral Tablet 2019 12:00:00 AM EDT aborted baclofen 20 MG O ral Tablet [place] ([facility]) Lactulose 667 MG/ML Oral Solution [Const ulose] Constulose 10 GM/15ML Oral Solution Constulose 10 GM/15ML Oral Solution 10/06/2019 12:00:00 AM EDT aborted lactulose 667 MG/ML Oral Millie ution [Constulose] [place] ([facility]) calcium polycarbophil 625 MG Oral Tablet [FiberCon] Fi berCon 625 MG Oral Tablet FiberCon 625 MG Oral Tablet 10/06/2019 12:00:00 AM EDT aborted calcium polycarbophil 625 MG Oral Tablet [FiberCon] [place] ([facility]) linaclotide 0.145 MG Oral Capsule [Linzess] Linzess 14 5 MCG Oral Capsule Linzess 145 MCG Oral Capsule 10/06/2019 12:00:00 AM EDT 1 aborted linaclotide 0.145 MG Oral Capsule [Linzess] [place] ([facility]) montelukast 10 MG Oral Tablet Montelukast Sodium 10 MG Oral Tablet Montelukast Sodium 10 MG Oral Tablet 10/06/2019 12:00:00 AM EDT aborted montelukast 10 MG Oral Tablet [facility]) Folic Acid 1 MG Oral Tablet Folic Acid 1 MG Oral Tablet 11/2019 12:00:00 AM EDT aborted folic acid 1 MG Oral Tablet [facility]) Sodium Phosphate, Dibasic 35.5 MG/ML / S odium Phosphate, Monobasic 96.4 MG/ML Enema Fleet Enema 7-19 GM/118ML Rectal Fleet Enema 7-19 GM/118ML Rectal 08/27/2019 12:00:00 AM EDT 1 aborted sodium phosphate, dibasic 35.5 MG/ML / sodium phosphate, monobasic 96.4 MG/ML Enema [place] ([facility]) Kariva 0.15-0.02/0.01MG (21/5) Oral Tablet Kariva 0.15 -0.02/0.01MG (21/5) Oral Tablet 09/30/2018 12:00:00 AM EDT 1 aborted {21 (desogestrel 0.15 MG / ethinyl estradiol 0.02 MG Oral Tablet) / 5 (ethinyl estradiol 0.01 MG Oral Tablet) / 2 (inert ingredients 1 MG Oral Tablet) } Pack [Kariva 28 Day] [place] ([facility]) Insurance Providers Payer name Policy type / Coverage type Policy ID Covered green party ID Covered green party's relationship to irving Policy [place] Plan Information MEDICARE [id number] Medicare Part [place] of [place] Medicare Primary [id number] Self 0 Medicare [place] Medicare Primary 0 [id number] Self 0 Medicare [place] Medicare Primary 0 [id number] Self 0 Medicare [place] Medicare Primary 0 [id number] Self 0 Medicare [place] Medicare Primary 0 [id number] Self 0 Medicare [place] Medicare Primary 0 [id number] Self 0 Medicare [place] Medicare Primary 0 [id number] Self 0 Medicare [facility] Medicare Primary [id number] Self [id number] Medicare [place] of [place] Medicare Primary 0 [id number] Self 0 Medicare [place] of [place] Medicare Primary 0 [id number] Self 0 [place] [id number] Self 5 [id number] Medicare [place] Medicare Primary [id number] Self 5 [id number] Medicare [place] Medicare Primary [id number] Self 5 [id number] [place] [id number] [id number] Self [id number] Medicare [place] Medicare Primary [id number] Self 5 [id number] MEDICARE [facility] [id number] S [id number] Medicaid of [place] Supplemental Policy 0 [id number] Self 0 Medicare Part B of [facility] Other 0 [id number] Self 0 [place] 0 [id number] Self 0 Medicare Part B of [facility] Other 0 [id number] Self 0 [place] Policy 0 [id number] Self 0 Medicare Part B of [facility] Other 0 [id number] Self 0 EMEDNY [id number] [place] Supplemental Policy 0 [id number] Self 0 Medicare Part B of [facility] Other 0 [id number] Self 0 [place] Supplemental Policy 0 [id number] Self 0 Medicare Part B of [facility] Other 0 [id number] Self 0 [place] Supplemental Policy 0 [id number] Self 0 Medicare Part B of [facility] Other 0 [id number] Self 0 [place] Policy 0 [id number] Self 0 Medicare Part B of [facility] Other 0 [id number] Self 0 [place] Supplemental Policy 0 [id number] Self 0 Medicare Part B of [facility] Other 0 [id number] Self 0 [place] Supplemental Policy 0 [id number] Self 0 Medicare Part B of [facility] Other 0 [id number] Self 0 [place] Supplemental Policy 0 [id number] Self 0 Medicare Part B of [facility] Other 0 [id number] Self 0 [place] [id number] 18 [id number] [place] Supplemental Policy 0 [id number] Self 0 Medicare Part B of [facility] Other 0 [id number] Self 0 MEDICAID [id number] [place] Supplemental Policy 0 [id number] Self 0 Medicare Part B of [facility] Other 0 [id number] Self 0 [place] Supplemental Policy 0 [id number] Self 0 Medicare Part B of [facility] Other 0 [id number] Self 0 ANSI-Medicaid [id number] ANSI-Medicare Part B [id number] [place] [id number] Self [id number] [place] Primary [id number] Self [id number] [place] Supplemental Policy 0 [id number] Self 0 Medicare Part B of [facility] Other 0 [id number] Self 0 [place] 0 [id number] Self 0 Medicare Part B of [facility] Other 0 [id number] Self 0 [place] Supplemental Policy 0 [id number] Self 0 [place] 0 [id number] Self 0 [place] [id number] Self [id number] [place] Primary [id number] Self [id number] [place] Supplemental Policy 0 [id number] Self 0 MEDICARE PART A-O/P [id number] 18 [id number] MEDICARE PART A-O/P [id number] 18 [id number] Medicare Dme Supplies Medigap Part B [id number] Self 5 [id number] Medicare Dme Supplies Medigap Part B [id number] Self 5 [id number] Medicaid [place] Med[place]ap Part B [id number] .[id number] Self [id number] [place] [id number] [id number] Self [id number] Medicare [place] Medicare Primary [id number] Self [id number] MEDICARE [id number] [place] Supplemental Policy 0 [id number] Self 0 Medicaid [place] Med[place] [id number] .[id number] Self [id number] Medicare [place] Medicare Primary [id number] Self [id number] [place] Supplemental Policy 0 [id number] Self 0 [place] Policy 0 [id number] Self 0 [place] Supplemental [place] 0 [id number] Self 0 [place] 0 [id number] Self 0 [place] [id number] .[id number] Self [id number] [place] Primary [id number] Self [id number] Medicare Dme Supplies Medigap Part B [id number] Self 5 [id number] Medicaid [facility] Part B [id number] [id number] Self [id number] Medicare [place] Medicare Primary [id number] Self [id number] Medicaid [facility] Part B [id number] [id number] .[id number] Self [id number] [place] Primary [id number] [id number] Self [id number] Medicaid [facility] Supplemental Policy 0 [id number] Self 0 Medicaid [facility] Part B [id number] [id number] .[id number] Self [id number] Medicare [place] Medicare Primary [id number] Self [id number] MEDICAID [id number] SP [id number] MEDICARE -O/P [id number] 18 [id number] [facility] MEDICAID [id number] SP [id number] G [id number] MEDICARE [id number] SP [id number] MEDICARE CO [id number] 18 [id number] MEDICAID [place] [id number] 18 [id number] MEDICAID -PHYSICIAN [id number] 8 [id number] MEDICAID [id number] 18 [id number] MEDICARE PART A [facility] [id number] 18 [id number] MEDICARE PART A-O/P [id number] 18 [id number] MEDICAID-O/P [id number] 18 [id number] MEDICAID -PHYSICIAN [id number] MEDICAID -O/P RAD ONLY [id number] 18 [id number] MEDICAID - O/P EMERGENCY ROOM [id number] 18 [id number] MEDICARE PART A -I/P [id number] 18 [id number] MEDICAID -I/P [id number] 18 [id number] MEDICAID HEA [id number] MEDICARE MCA [id number] S [id number] Problems, Conditions, and Diagnoses Code Display Name Description Problem Type Effective Dates Data Source(s) X28555 Encounter for gynecological examination (general) (routine) without abnormal findings Encounter for gynecological examination (general) (routine) without abnormal findings Diagnosis 01/12/2021 10:02:00 AM EDT [facility] N390 Urinary tract infection, site not specif ied Urinary tract infection, site not specified Diagnosis 12/29/2020 04:39:00 PM EDT [facility] [id number] Unspecified place in hospita l as the place of occurrence of the external cause Unspecified place in hospital as the elisha ce of occurrence of the external cause Diagnosis 12/15/2020 11:36:00 PM EDT [facility] [id number] Fall on same level, unspecified, initial encounter Fall on same level, unspecified, initial encounter Diagnosis 12/15/2020 11:36:00 PM EDT [facility] F419 Anxiety disorder, unspecified Anxiety disorder, unspec ified Diagnosis 12/15/2020 11:36:00 PM EDT [facility] E039 Hypothyroidism, unspecified Hypothyroidism, unspecifie d Diagnosis 12/15/2020 11:36:00 PM EDT [facility] [id number] Contusion of scalp, initial encounter Co ntusion of scalp, initial encounter Diagnosis [id number]specified injury of head, initial enco unter Unspecified injury of head, initial encounter Diagnosis 12/15/2020 11:36:00 PM [facility] R1310 Dysphagia, unspecified Dysphagia, unspecified Diagnosi s 09/17/2020 04:09:00 PM [facility] Z8701 Personal history of pneumonia (recurrent ) Personal history of pneumonia (recurrent) Diagnosis 09/17/2020 04:09:00 PM [facility] F71 Moderate intellectual disabilities Moderate inte llectual disabilities Diagnosis 09/17/2020 04:09:00 PM [facility] K5900 Constipation, unspecified Constipation, unspecified Di agnosis 09/17/2020 04:09:00 PM [facility] F339 Major depressive disorder, recurrent, un specified Major depressive disorder, recurrent, unspecified Diagnosis 09/17/2020 04:09:00 PM [facility] 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 Diagnosis 09/17/2020 04:09:00 PM [facility] G459 Transient cerebral ischemic attack, unsp ecified Transient cerebral ischemic attack, unspecified Diagnosis 09/17/2020 04:09:00 PM [facility] Z1152 ENCOUNTER FOR SCREENING FOR COVID-19 ENCOUNTER F OR SCREENING FOR COVID-19 Diagnosis 09/17/2020 09:12:00 AM [facility] R000 Tachycardia, unspecified Tachycardia, unspecified Diag nosis 09/17/2020 09:12:00 AM [facility] B351 Tinea unguium Tinea unguium Diagnosis 07/07/2020 08:17:00 AM [facility] M2040 Other hammer toe(s) (acquired), unspecif ied foot Other hammer toe(s) (acquired), unspecified foot Diagnosis 07/07/2020 08:17:00 AM [facility] L84 Corns and callosities Corns and callosities Diagnosis 07/07/2020 08:17:00 AM [facility] T65603 Unspecified atherosclerosis of ambler arteries of extremities, bilateral legs Unspecified atherosclerosis of ambler ar teries of extremities, bilateral legs Diagnosis 07/07/2020 08:17:00 AM [facility] F72 Severe intellectual disabilities Severe intellectual d isabilities Diagnosis 07/02/2020 08:05:00 AM [facility] F6381 Intermittent explosive disorder Intermittent explosive disorder Diagnosis 07/02/2020 08:05:00 AM [facility] J47062 Other long term care administrator (current) drug therapy O ther senior care (current) drug therapy Diagnosis 04/05/2020 08:07:00 AM [facility] V51674 Hormone replacement therapy Hormone replacement therap y Diagnosis [facility] Unspecified intellectual disabilities Unspecifie d intellectual disabilities Diagnosis 02/25/2020 07:44:00 AM EDT [facility] M0689 Other specified rheumatoid arthritis, mu ltiple sites Other specified rheumatoid arthritis, multiple sites Diagnosis 01/28/2020 08:35:00 AM [facility] Z79.899 Taking medication Taking medication Problem 04/05/2020 12:00:00 AM EST [facility] ([facility]) Surgeries/Procedures Procedure Description Date Indications Data Source(s) RADIOLOGIC EXAMINATION KNEE 1/2 VIEWS 01/20/2021 12:00 :00 AM EDT [facility] ([facility] ) OFFICE OUTPATIENT VISIT 15 MINUTES 01/20/2021 12:00:00 AM EDT [facility] ([facility]) OFFICE OUTPATIENT VISIT 25 MINUTES 01/19/2021 12:00:00 AM EDT [facility] ([facility]) INITIAL PREVENTIVE MEDICINE NEW PATIENT 40-64YRS 01/12 12:00:00 AM EDT [facility] ([facility]) Monitoring of Cardiac Electrical Activity, External Ap proach Monitoring of Cardiac Electrical Activity, External Approach 09/17/2020 12:00:00 AM [facility] Introduction of Other Anti-infective int o Peripheral Vein, Percutaneous Approach Introduction of Other Anti-infective int o Peripheral Vein, Percutaneous Approach 09/17/2020 12:00:00 AM [facility] Introduction of Electrolytic and Water B alance Substance into Peripheral Vein, Percutaneous Approach Introduction of Electrolytic and Water B alance Substance into Peripheral Vein, Percutaneous Approach 09/17/2020 12:00:00 AM EDT [facility] Computerized Tomography (CT Scan) of Chest and Abdomen Computerized Tomography (CT Scan) of Chest and Abdomen 09/17/2020 12:00:00 AM EDT [facility] Pare Hyperkeratotic Lesion, 2-4 08/30/2020 12:00:00 AM EDT [facility] ([facility]) Debridement Nails Any Method 6 Or More 08/30/2020 12:0 0:00 AM EDT [facility] ([facility]) Pare Hyperkeratotic Lesion, 2-4 04/28/2020 12:00:00 AM EST [facility] ([facility]) Debridement Nails Any Method 6 Or More 04/28/2020 12:0 0:00 AM EST [facility] ([facility]) Pare Hyperkeratotic Lesion, 2-4 01/28/2020 12:00:00 AM EDT [facility] ([facility]) Debridement Nails Any Method 6 Or More 01/28/2020 12:0 0:00 AM EDT [facility] ([facility]) REMOVE CERUMEN (w/INSTRUMENT) REMOVE CERUMEN (w/INSTRUMENT) 12/31/2019 12:00:00 AM EDT [facility] ([facility]) Results ID Date Data Source [id number] 01/31/2021 04:14:00 PM EDT [facility] Name Value Range Interpretation Code Description Data Poonam rce(s) Supporting Document(s) SARS coronavirus 2 RNA [Presence] in Res piratory specimen by BLANCA with probe detection NEGATIVE [facility] This lab was ordered by [facility] a nd reported by [facility]. ID Date Data Source [id number] 01/12/2021 10:44:00 AM EDT [facility] ([facility]) Name Value Range Interpretation Code Description Data Poonam rce(s) Supporting Document(s) Mammo Screening Bilateral with CAD Laboratory test result [facility] ([facility]) ID Date Data Source [id number] 01/02/2021 10:26:00 AM EDT [facility] Name Value Range Interpretation Code Description Data Poonam rce(s) Supporting Document(s) CULTURE URINE [facility] _CULTURE URINE_$$[id number]$$455291$$919955$$974739$$840969$$190894$$167886$$436962$$344972$$ 376439$$924232$$626349$$832701$$691182$$375259$$046517$$347137$$665455$$897705$$ 289767$$523374$$740969$$440785$$267112$$396879$$269626$$882067 -- Continued on next page --Patient: SHIVANI Lopez Order: [id number] Page 2Culture: CULTURE URINE Status: Final ==== -- Continued on next page --Patient: SHIVANI Lopez Order: [id number] Page 2Culture: CULTURE URINE Status: Prelim =====$$[id number]$$[id number] DATE/TIME: 01/02/2021 10:05Culture: CULTURE URINE Status: FinalIsolate [...] 01/01/2021 06:56 ET Gram negative rodsUrine Culture,Comprehensive: T2Sabkogz mirabilis Flag: APatient: SHIVANI Lopez Order: [id number] Page 3Culture: CULTURE URINE Status: Final ISOLATE [...] S S . . . . . .56372-4Nkahsylxcn S S . . . . . .267-5Levofloxacin I I . . . . . .44435- 8Meropenem S S . . . . . .6652-2Nitrofurantoin R R . . . . . .363-2Piperacillin/Tazobactam S S . . . . . .412-7Tetracycline R R . . . . . .496-0Tobramycin S S . . . . . .508- 2Trimethoprim/Sulfa S S . . . . . .516-5P1 Test performed by: Dorian WALSH #: [id number] [address] [place] [address] [id number] [facility] [address]Gfrchqq Director : Neil Estrada MD NPI #:Cupola Worker : 01/01/21.0730.XMT.SENT REF 01/02/21.1026.XMT.SENT REF 01/02/21.1036.XMT.SENT REF ID Date Data Source [id number] 12/29/2020 05:36:00 PM EDT [facility] Name Value Range Interpretation Code Description Data Poonam rce(s) Supporting Document(s) [facility] COL[facility] yellow NORMAL: Yellow [facility] CLARITY clear NORMAL: Clear [facility] Specific gravity of Urine by Test strip 1.020 1.001 - 1.030 [facility] pH 6 5 - 9 [facility] Glucose [Mass/volume] in Urine by Test strip NORM NORMAL: Negat [facility] Bilirubin.total [Presence] in Urine by Test strip NEG NORMAL: Negative [facility] Ketones [Presence] in Urine by Test strip NEG NORMAL: Negative [facility] Protein [Mass/volume] in Urine by Test strip NEG NORMAL: Negat [facility] Nitrite [Presence] in Urine by Test strip NEG NORMAL: Negative [facility] BLOOD NEG NORMAL: Negative [facility] LEUK EST NEG NORMAL: Negative [facility] Urobilinogen [Mass/volume] in Urine by Test strip NOR less pieter n 1.0 mg/dL [facility] MICROSCOPIC Not Indicate [facility] ID Date Data Source [id number] 12/16/2020 11:15:00 PM EDT [facility] [address] [place] [address] RESPIRATORY CARE REPORT ==== ---------NAME------- NUMBER SEX AGE ADMIT DISC. XRAY# F/C TYPESHIVANI Lopez [id number] F 50 12/15/20 12/16/20 [id number] MB4 E/R DATE OF : 1970 M/R# [id number] #: [phone] TR-08 LOCATION: [place] [address] COMP LETE:12/16/20 01:25 AJP 48696 PHYSICIAN: AMOS MENENDEZ NOR Name Value Range Interpretation Code Description Data Poonam rce(s) Supporting Document(s) ID Date Data Source [id number] 12/16/2020 07:40:00 [place] [address] PHONE: [phone] FAX: [phone] Name .................. : SHIVANI Lopez Acct Number.................. : [id number] ROOM. ................. : TR-08 Number ................... : [id number] Stay type ............. : E/R Discharge Date......... ... : 12/16/20 Admit Date ......... : 12/15/20 Admit Phys .................... : COONEYNORM Date of ....... : 1970 Family Phys ................... : JOSE LUIS ROBLEDO Phone .................. : [phone] Age ................................ : 50 Film# .................. .:[id number] Sex ................................. : F Unsigned transcriptions are preliminary reports and do not represent a medical or legal document CT CERV SPINE W/O CONTRAS 38764 COMPLETE:12/16/20 01:51 DLA 96652 Reason(s): Trauma/Injury CT CERVICAL SPINE WITHOUT IV CONTRAST INDICATION: Trauma/injury COMPARISON: None CONTRAST: None Preliminary report for this exam was provided by [facility] . PROCEDURE: The patient is [...] 12/16/20 07:41, SCB Page 1 of 2 [place] [address] PHONE: [phone] FAX: [phone] Name .................. : SHIVANI LEDESMA Jessica Acct Number.................. : [id number] ROOM. ................. : TR-08 Number ................... : [id number] Stay type ............. : E/R Discharge Date......... ... : 12/16/20 Admit Date ......... : 12/15/20 Admit Phys .................... : COONEYNORM Date of ....... : 1970 Family Phys ................... : JOSE LUIS ROBLEDO Phone .................. : [phone] Age ................................ : 50 Film# .................. .:[id number] Sex ................................. : F Unsigned transcriptions are preliminary reports and do not represent a medical or legal document CT CERV SPINE W/O CONTRAS 98860 COMPLETE:12/16/20 01:51 DLA 84758 Reason(s): Trauma/Injury Transcribe Initials: SSR, Transcribe Date: 12/16/20 07:28, Dictation Date: Copy for: JOSE LUIS BRINK via fax Copy for: EMERGENCY DEPT via modem Copy for: 710 MED REC DISCHARGED Page 2 of 2 Name Value Range Interpretation Code Description Data Poonam rce(s) Supporting Document(s) ID Date Data Source [id number] 12/16/2020 07:40:00 [place] [address] PHONE: [phone] FAX: [phone] Name .................. : SHIVANI Lopez Acct Number.................. : [id number] ROOM. ................. : TR-08 Number ................... : [id number] Stay type ............. : E/R Discharge Date......... ... : 12/16/20 Admit Date ......... : 12/15/20 Admit Phys .................... : CODAENORM Date of ....... : 1970 Family Phys ................... : JOSE LUIS ROBLEDO Phone .................. : [phone] Age ................................ : 50 Film# .................. .:[id number] Sex ................................. : F Unsigned transcriptions are preliminary reports and do not represent a medical or legal document CT HEAD W/O CONTRAST 09535 COMPLETE:12/16/20 01:51 DLA 87612 Reason( s): Head Injury CT BRAIN WITHOUT IV CONTRAST INDICATION: Injury/trauma. Concussion head injury. COMPARISON: 09/17/20 CONTRAST: None Preliminary report for this exam was provided by [facility] . One or more of [...] sinuses are clear. Page 1 of 2 [facility] [address] [place] [id number] PHONE: [phone] FAX: [phone] Name .................. : SHIVANI Lopez Acct Number.................. : [id number] ROOM. ................. : TR- 08 MR Number ................... : [id number] Stay type ............. : E/R Discharge Date......... ... : 12/16/20 Admit Date ......... : 12/15/20 Admit Phys .................... : COONEYNORM Date of ....... : 1970 Family Phys ................... : JOSE LUIS ROBLEDO Phone .................. : [phone] Age ................................ : 50 Film# .................. .:[id number] Sex ................................. 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 No acute intracranial traumatic abnormality or significant interval change. Electronically Reviewed and Signed By Ricci Perkins MD , 12/16/20 07:40, SCB Transcribe Initials: SSR, Transcribe Date: 12/16/20 07:27, Dictation Date: Copy for: JOSE LUIS BRINK via fax Copy for: EMERGENCY DEPT via modem Copy for: 710 MED REC DISCHARGED Page 2 of 2 Name Value Range Interpretation Code Description Data Poonam rce(s) Supporting Document(s) ID Date Data Source [id number] 12/16/2020 07:40:00 AM EDT [facility] [address] [place] [address] PHONE: [phone] FAX: [phone] Name .................. : SHIVANI Lopez Acct Number.................. : [id number] ROOM. ................. : TR-08 Number ................... : [id number] Stay type ............. : E/R Discharge Date......... ... : 12/16/20 Admit Date ......... : 12/15/20 Admit Phys .................... : COONEYNORM Date of ....... : 1970 Family Phys ................... : JOSE LUIS ROBLEDO Phone .................. : [phone] Age ................................ : 50 Film# .................. .:[id number] Sex ................................. : F Unsigned transcriptions are preliminary reports and do not represent a [place] [address] COMPLETE:12/16/20 01:51 DLA 27473 Reason(s): Trauma/Injury EXAM: Pelvis one view HISTORY: [...] rce(s) Supporting Document(s) ID Date Data Source [id number] 12/16/2020 07:40:00 AM EDT [facility] [address] [place] [address] PHONE: [phone] FAX: [phone] Name .................. : SHIVANI Lopez Acct Number.................. : [id number] ROOM. ................. : TR08 Number ................... : [id number] Stay type ............. : E/R Discharge Date......... ... : 12/16/20 Admit Date ......... : 12/15/20 Admit Phys .................... : COONEYNORM Date of ....... : 1970 Family Phys ................... : JOSE LUIS ROBLEDO Phone . ................. : [phone] Age ................................ : 50 Film# .................. .:[id number] Sex ................................. : F Unsigned transcriptions are preliminary reports and do not represent a medical or legal document CHEST PORTABLE 22953 COMPLETE:12/16/20 01:51 DLA 51105 Reason(s): Chest Pain PORTABLE CHEST SINGLE VIEW [...] rce(s) Supporting Document(s) ID Date Data Source [id number] 12/15/2020 11:36:00 PM EDT [facility] 1 OrderSheet [facility] [address] [place] [address] Phone #: ext- [phone] 12/15/2020 23:35 Patient: [...] Menendez MD; 12/16/2020 Stephanie Urbina Laura R.N. RSylvesterNSylvester Reason for Study: Head InjuryCT Spine Cervical STAT 23:45 12/15/2020 Ack'd: 00:06 01:42 12/16/2020W/O Cont Mihaela Menendez MD; 12/16/2020 Stephanie Urbina 2 OrderSheet [facility] Department [address] [place] [address] Phone #: ext- [phone] 12/15/2020 23:35 Patient: LEAH BRYANT [facility]#: [id number] Sex: F : 1970 Age: 50y(Oxygen?(No)) Stephanie [...] Ack'd: 00:34 00:41 Carlitos,(NOW x1, HIGH Mihaela Menendez MD; Stephanie Urbina R.N.ALERT R.N.MEDICATION)Zofran IVP 4 mg 01:20 12/16/2020 01:41 Gemma Urbina Norma MD; Stephanie AbrahamKetamine IVP 100 01:20 12/16/2020 01:42 Carlitosmg (NOW [...] rce(s) Supporting Document(s) ID Date Data Source [id number] 12/15/2020 11:36:00 PM EDT [facility] 1 Medication Reconciliation Report [facility] [address] [place] [address] Phone #: ext- [phone] 12/15/2020 23:35 Patient: [...] (40 mg), daily 2 Medication Reconciliation Report [facility] [address] [place] [address] Phone #: ext- [phone] 12/15/2020 23:35 Patient: [...] 00:41 12/16/2020Zofran [IVP] IVP 4 mg, administered: 01:12/16/2020Ketamine [IVP] IVP 100 mg, administered: 01:12/16/2020The following Medications were prescri bed to the patient:None. Name Value Range Interpretation Code Description Data Poonam rce(s) Supporting Document(s) ID Date Data Source [id number] 12/15/2020 11:36:00 PM EDT [facility] 1 Medication Administration Record [facility] [address] [place] [address] Phone #: ext- [phone] 12/15/2020 23:35 Patient: [...] KETAMINE [IVP] Ketamine IVP 100 mg (NOW x1,01:12/16/2020 Dose: 100 mg IVP HIGH ALERT MEDICATION)Stephanie Urbina R.N. Site: #1 right AC Name Value Range Interpretation Code Description Data Poonam rce(s) Supporting Document(s) ID Date Data Source [id number] 12/15/2020 11:36:00 PM EDT [facility] 1 General Instructions [facility] Department [address] [place] [address] Phone #: ext- [phone] 12/15/2020 23:35 Patient: [...] instructions verbalized. Discharge instructions reviewed. ([place]). 2 [facility] Emergency Department [address] [place] [address] Phone #: ext- [phone] 12/15/2020 23:35 Patient: [...] or eye Frequent bruising for unknown reasons [id number] [facility]. [address] [place] [address], [place] [address]. All rights reserved. This information is not intended as asubstitute for professional medical care. Always follow your healthcare professional's instructions. 3 General Instructions [facility] Department [address] [place] [address] Phone #: ext- [phone] 12/15/2020 23:35 Patient: [...] taking blood thinner medicines. 4 General Instructions [facility] Department [address] [place] [address] Phone #: ext- [phone] 12/15/2020 23:35 Patient: [...] the reading, especially if it affects treatment.Call [phone] [phone] if any of these happen: Trouble breathing Confused or difficulty arousing 5 General Instructions [facility] Department [address] [place] [address] Phone #: ext- [phone] 12/15/2020 23:35 [id number] Sex[facility] F : 1970 Age: 50y Fainting [...] in vomit, stools (black or red color) [id number] [employer]. [address] [place] [address]. All rights reserved. This information is not intended as asubstitute for professional medical care. Always follow your healthcare professional's instructions. You have been given the following additional information: Soft Tissue Contusion Mechanical Fall(Electronically signed by Mihaela Menendez MD 12/16/2020 05:43) Name Value Range Interpretation Code Description Data Poonam rce(s) Supporting Document(s) ID Date Data Source [id number] 12/15/2020 11:36:00 PM EDT [facility] 1 Clinical Report - Nurses [facility] [address] [place] [address] Phone #: ext- [phone] 12/15/2020 23:35 Patient: LEAH BRYANT Sex: F : 1970 Age: 50yTRIAGE Arrived by EMS. Historian: patient. Acuity: LEVEL 3. Chief Complaint: FALL: Alert. No acute distress. ( Patient arrives from [facility] c/o fall. Per ems staff reported fall was from standing height. Per staff at ems reports pt has been acting "off" from the past couple of days. EMS reporting bump to right sided head. Pt is A.). Treatment INTEL ANALYST: None. --23:40 12/15/20 Stephanie Urbina R.N. 23:37 12/15/20. BP: 116/87. MAP: 96. HR: 107. RR: 17. O2 saturation: 97% on room air. Temp: 98.5 F. Pain level now: 0/10. --23:40 12/15/20 Stephanie Urbina R.N. Weight: 62.5 kg measured. Height/Length: 62 inches Estimated. BMI: 25.2. --23:37 12/15/20 Stephanie Urbina R.N. Medications Acetaminophen Oral (Tablet 325 mg) [...] a day. 2 Clinical Report - Nurses [facility] [address] [place] [address] Phone #: ext- [phone] 12/15/2020 23:35 [id number] Sex[facility] F : 1970 Age: 50yTramadol HCL Oral 300mg, daily. --23:38 12/15/20 Stephanie Urbina R.N.AllergiesNone. --23:38 12/15/20 Stephanie Urbina R.N.PROBLEMS:Hard hearing.Depression.Moderate intellectual disability.Constipation.Sprain.Sinus Tachycardia.Pneumonia.Hypothyroidism.UTI - Urinary Tract Infection. --23:39 12/15/20 Melaragno, Stephanie, R.N.Constipation: RuleOut.Pneumonia: RuleOut.Palpitations: RuleOut.Abdominal Pain: RuleOut.Sinus Tachycardia: [...] position. Brakes 3 Clinical Report - Nurses [facility] [address] [place] [address] Phone #: ext- [phone] 12/15/2020 23:35 Patient: LEAH BRYANT MRN: [id number] [...] --00:41 12/16/20 Stephanie Urbina R.N. ( Dina, supervisor mechanic boilermaking from came over to stay with patient. Pt yelling out and agitated. Pt medicated per JUN for CT scan.). --00:42 12/16/20 Stephanie Urbina R.N. 4 Clinical Report - Nurses [facility] [address] [place] [address] Phone #: ext- [phone] 12/15/2020 23:35 Patient: [...] from CT by stretcher with nurse and director of radiology. --01:42 12/16/20 Stephanie Urbina R.N.01:42 12/16/20. HR: 105. RR: 20. O2 saturation: 93% on room air. --01:42 12/16/20 Stephanie Urbina R.N.The patient is sleeping. ( Dina supervisor mechanic boilermaking from remains at bedside.). --02:12/16/20 Stephanie Urbina [...] medication section. 5 Clinical Report - Nurses [facility] [address] [place] [address] Phone #: ext- [phone] 12/15/2020 23:35 Patient: LEAH BRYANT Sex: F [...] / DISCHARGE ( Report given to Dina, supervisor mechanic boilermaking at . Awaiting ambulance to bring pt back at this time.). --05:29 12/16/20 Stephanie Urbina R.N. 05:46 12/16/2020 Site #1 removed upon discharge. Bandage applied. --05:52 12/16/20 Stephanie Urbina R.N. Condition at departure: stable. Ability to learn limited by intellectual disability. Written instructions provided in [place]. ( Report given to Dina). The patient [...] rce(s) Supporting Document(s) ID Date Data Source [id number] 12/15/2020 11:36:00 PM EDT [facility] 1 Clinical Report - Physicians/Mid Levels [facility] [address] [place] [address] Phone #: ext- [phone] 12/15/2020 23:35 Patient: LEAH BRYANT Sex: F : 1970 Age: 50y Arrived- By ambulance. Historian- EMS personnel. Disposition decision: 05:29 12/16/2020.HISTORY OF PRESENT ILLNESS Chief Complaint: FALL: Location of injuries- head. The injury occurred just prior to arrival. ([facility]). Fell: The patient complains of mild [...] needed. 2 Clinical Report - Physicians/Mid Levels [facility] [address] [place] [address] Phone #: ext- [phone] 12/15/2020 23:35 Patient: LEAH BRYANT Sex: F [...] X-RAYS, AND EKGLaboratory Tests: CBC wo Diff: (ALKEISHA: 12/16/2020 00:05) ( MsgRcvd 12/16/2020 00:13) Final [...] 3 Clinical Report - Physici ans/Mid Levels [facility] Department [address] [place] [address] Phone #: ext- [phone] 12/15/2020 23:35 Patient: [...] Male GFR Interprentation 20-49 yrs >60 mL/min Uwbtqe99-03 yrs >56 mL/min Normal 60-69 yrs >49 mL/min Normal 70-79yrs>42 mL/min Normal 80 and above >35 mL/min Normal Female GFRInterpretation 20-39 yrs >60 mL/min Normal 40-49 yrs >58 mL/minNormal 50-59 yrs >51 mL/min Normal 60-69 yrs >45 mL/min Ppcpdc63-43 yrs >39 mL/min Normal 80 and above [...] value forTroponin T.TSH: (LAKEISHA: 12/16/2020 00:05) ( KsgRcvd 11/28 00:37) Final results Test Result Flag Units (Reference) 4 Clinical Report - Physicians/Mid Levels [facility] Emergency Department [address] [place] [address] Phone #: ext- [phone] 12/15/2020 23:35 Patient: LEAH BRYANT Sex: F : 1970 Age: 50y TSH 2.01 uIU/mL (0.47 - 5.01) Magnesium: (LAKEISHA: 12/16/2020 00:05) ( [facility] [place]:37[place] Final results Test Result Flag U nits (Reference) MAGNESIUM 1.8 MG/DL (1.7 - 2.2) CT Head W/O Cont: (LAKEISHA: 12/15/2020 23:45) ( [facility] 12/16/2020 01:51) In Progress CT HEAD W/O CONTRAST Reason(s): Head Injury TRANSPORTATION: S IV? O2? Oxygen?(No) Room: ED CT Spine Cervical W/O Cont: (LAKEISHA: 12/15/2020 23:45) ( [facility] [place] 12/16/[place] 01:51) In Progress CT CERV SPINE [...] no evidence of infection. will discharge back[facility] [employer]. pt to f/u with pcp tomorrow. Critical [...] scalp. 5 Clinical Report - Physicians/Mid Levels [facility] Emergency Department [address] [place] [address] Phone #: ext- [phone] 12/15/2020 23:35 Patient: LEAH BRYANT Sex: F : 1970 Age: 50y Fall.INSTRUCTIONS [...] 12/16/2020 05:43) 6Clinical Report - Physicians/Mid Levels [facility] Emergency Department [address] [place] [address] Phone #: ext- [phone] 12/15/2020 23:35 [id number] Sex: F : 1970 Age: 50y Name Value Range Interpretation Code Description Data Poonam rce(s) Supporting Document(s) ID Date Data Source [id number] 12/16/2020 12:40:00 AM EDT [facility] Name Value Range Interpretation Code Description Data Poonam rce(s) Supporting Document(s) [facility] COL[facility] yellow NORMAL: Yellow [facility] CLARITY turbid NORMAL: Clear [facility] Specific gravity of Urine by Test strip 1.010 1.001 - 1.030 [facility] pH 7 5 - 9 [facility] Glucose [Mass/volume] in Urine by Test strip NORM NORMAL: Negat [facility] Bilirubin.total [Presence] in Urine by Test strip NEG NORMAL: Negative [facility] Ketones [Presence] in Urine by Test strip NEG NORMAL: Negative [facility] Protein [Mass/volume] in Urine by Test strip [facility] [Presence] in Urine by Test strip POS NORMAL: Negative [facility] BLOOD 10 NORMAL: Negative A [facility] LEUK EST 25 NORMAL: Negative [facility] Urobilinogen [Mass/volume] in Urine by Test strip NOR less pieter n 1.0 mg/dL [facility] MICROSCOPIC See Below [facility] ital WBC 3 - 5 NORMAL: NONE SEEN [facility] Erythrocytes [#/volume] in Urine by Test strip 1 - 3 NORMAL: NON E SEEN [facility] EPITHELIAL MODERATE NORMAL: NONE SEEN A [facility] Bacteria [Presence] in Urine sediment by Light microscopy 2+ MOD NORMAL: NONE SEEN A [facility] Mucus [Presence] in Urine sediment by Light microscopy 1+ NOR MAL: NONE SEEN [facility] Amorphous sediment [Presence] in Urine sediment by Light maximus roscopy 3+ NORMAL: NONE SEEN [facility] ID Date Data Source [id number] 12/16/2020 12:49:00 AM EDT [facility] Name Value Range Interpretation Code Description Data Poonam rce(s) Supporting Document(s) COMPREHENSIVE METABOLIC PANEL [facility] COMPREHENSIVE METABOLIC PANEL Sodium [Moles/volume] in Serum or Plasma 140 mEq/L 134 - 153 [facility] Potassium [Moles/volume] in Serum or Plasma 3.7 mEq/L 3.6 - 5.0 [facility] Chloride [Moles/volume] in Serum or Plasma 104 mEq/L 98 - 107 [facility] Carbon dioxide, total [Moles/volume] in Serum or Plasma 26 MEQ/L 22 - 30 [facility] Glucose [Mass/volume] in Serum or Plasma 106 MG/DL 70 - 99 H [facility] BUN 15 MG/DL 7 - 21 [facility] Creatinine [Mass/volume] in Serum or Plasma 0.5 MG/DL 0.7 - 1.5 L [facility] BUN/CREAT 30 8 - 27 H [facility] Protein [Mass/volume] in Serum or Plasma 7.8 G/DL 6.3 - 8.2 [facility] Albumin [Mass/volume] in Serum or Plasma 4.0 G/DL 3.9 - 5.0 [facility] Globulin [Mass/volume] in Serum by calculation 3.8 GM/DL 2.4 - 3.2 H [facility] A/G RATIO 1.1 0.8 - 2.0 [facility] Calcium [Mass/volume] in Serum or Plasma 10.1 MG/DL 8.4 - 10.2 [facility] Bilirubin.total [Mass/volume] in Serum or Plasma <0.7 MG/DL 0.2 - 1.3 [facility] Alkaline phosphatase [Enzymatic activity/volume] in Serum or Plasma 160 U/L 38 - 126 H [facility] Aspartate aminotransferase [Enzymatic activity/volume] in Serum or Plasma 94 U/L 5 - 40 H [facility] Alanine aminotransferase [Enzymatic activity/volume] in Seru m or Plasma 80 U/L 7 - 56 H [facility] Anion gap 3 in Serum or Plasma 10.0 mmol/L 8.0 - 16.0 [facility] AGE 50 yrs [facility] NON-AA GFR >60 mL/min [facility] AFR AMER GFR >60 mL/min [facility] Male GFR In terprentation 20-49 [...] >32 mL/min Normal ID Date Data Source [id number] 12/16/2020 12:37:00 AM T [facility] Name Value Range Interpretation Code Description Data Poonam rce(s) Supporting Document(s) Magnesium [Mass/volume] in Serum or Plasma 1.8 MG/DL 1.7 - 2.2 [facility] ID Date Data Source [id number] 12/16/2020 12:37:00 AM [facility] Name Value Range Interpretation Code Description Data Poonam rce(s) Supporting Document(s) Thyrotropin [Units/volume] in Serum or Plasma by Detec tion limit <= 0.05 mIU/L 2.01 uIU/mL 0.47 - 5.01 [facility] ID Date Data Source [id number] 12/16/2020 12:27:00 AM T [facility] Name Value Range Interpretation Code Description Data Poonam rce(s) Supporting Document(s) TROPONIN T <0.01 NG/ML 0.00 - 0.10 [facility] TROPONIN T0.1 ng/ml Recommended as the c linical threshold value forTroponin T. ID Date Data Source [id number] 12/16/2020 12:13:00 AM [facility] Value Range Interpretation Code Description Data Poonam rce(s) Supporting Document(s) CBC NO DIFF [facility] COMPLETE BLOOD COUNT Leukocytes [#/volume] in Blood by Automated count 7.4 10^3/uL 4.2 - 1 1.0 [facility] Erythrocytes [#/volume] in Blood by Automated count 3.68 10^6/uL 4. 20 - 5.40 L [facility] Hemoglobin [Mass/volume] in Blood 11.0 g/dL 12.0 - 16.0 L [facility] Hematocrit [Volume Fraction] of Blood by Automated count 34.1 % 3 7.0 - 47.0 L [facility] Erythrocyte mean corpuscular volume [Entitic volume] by Auto mated count 92.7 fL 81.0 - 101 [facility] Erythrocyte mean corpuscular hemoglobin [Entitic mass] by Automated count 29.9 pg 27.0 - 34.0 [facility] Erythrocyte mean corpuscular hemoglobin concentration [Mass/volume] by Automated count 32.3 g/dL 31.0 - 36.0 [facility] Erythrocyte distribution width [Ratio] by Automated count 14.5 % 11.5 - 14.5 [facility] Platelets [#/volume] in Blood by Automated count 232 10^3/uL 150 - 45 0 [facility] Platelet mean volume [Entitic volume] in Blood by Automated count 11.5 fL 7.4 - 10.4 H [facility] ID Date Data Source [id number] 09/28/2020 11:58:00 AM EDT [place], [place] [address]PATIENT NAME: PABLO BRYANTTE OF : 1970REPORT: DISCHARGE SUMMARYPATIENT NUMBER: [id number] STATUS: IPMEDICAL RECORD NUMBER: [id number] OF ADMISSION: 09/18/2020ATE OF DISCHARGE: 1ROOM: 00DISCHARGE DIAGNOSES:1. Sepsis due to UTI.2. Aspiration pneumonia.3. Gait instability due to sepsis.4. Elevated liver function tests.5. Anxiety disorder.6. Developmental delay.7. GERD.8. Hypothyroidism.DISPOSITION: Rehab.HOSPITAL COURSE: Ms. Leah Bryant is a 50-year-old female with history ofdevelopmental delay, resident of longterm in [place], anxiety disorder,GERD, hypothyroidism who was transferred from [facility] forevaluation of dysphagia, gait instability and urosepsis. 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 For sepsis due to UTI, patient waskept on Zosyn. She has chronic indwelling Wheat catheter that was changed.Culture from the [facility] grew E-coli and Klebsiella oxytoca.Patient finished the [...] neurology and not a concern for Guillain- Shevlin syndrome andlikely generalized weakness because of infection. The patient is afebrile.Still has mild leukocytosis. The patient now being discharged to rehab.DISCHARGE PHYSICAL EXAMINATION: Vitals: Temperature 36.9, respiratoryrate 19, heart rate 96, blood pressure 131/68. General: Lyingcomf ortably. CVS: S1 S2 regular. Chest: Bilateral clear air entry onfront. Abdomen: Soft, nontender. DIRECTOR OF ORTHOPEDICS: Awake.DISCHARGE INSTRUCTIONS AND FOLLOWUP:1. The patient will follow up with prison physician in 1 week.2. The patient needs CBC, BMP and liver function test in 1 week.3. The patient will follow up with speech and swallow for diet upgrade.DICTATED BY: CALI Brewerictated: 09/24/2020 10:17DT: 09/24/2020 10:26Job #: [id number]:NOTE: [facility] computer generated reports are notconfirmed or authenticated unless they are signed by the providerElectronic ally Authenticated and Edited by:JA HARP MD On 09/28/2020 11:58 AM EDT Name Value Range Interpretation Code Description Data Poonam rce(s) Supporting Document(s) ID Date Data Source [id number] 09/23/2020 06:15:00 PM EDT [facility] Name Value Range Interpretation Code Description Data Poonam rce(s) Supporting Document(s) SARS coronavirus 2 RNA [Presence] in Res piratory specimen by BLANCA with probe detection NOT DETECTED [facility] This lab was reported by [facility]. ID Date Data Source [id number] 09/23/2020 09:30:27 PM EDT [facility] Name Value Range Interpretation Code Description Data Poonam rce(s) Supporting Document(s) SPECIMEN DESCRIPTION [facility] COVID19 RESULT (NDET) [facility] NEGATIVE COVID-19 RESULTS DONOT PRECLUDE COVID-2019 INFECTION ANDSHOULD NOT BE USED THE SOLE BASISFOR PATIENT MANAGEMENT DECISIONS.THIS ASSAY AMPLIFIES AND DETECTS THE TARGETRNA USING ISOTHERMAL HELICASE DEPENDENTAMPLIFICATION.TESTING PERFORMED ON THE AMINTA.THE U.S. FDA HAS MADE THIS TEST AVAILABLEUNDER AN EMERGENCY USE AUTHORIZATION(EUA) FOR THE DETECTION AND/OR DIAGNOSISOF THE VIRUS THAT CAUSES COVID-19. FIRST TEST [facility] EMPL[facility]ED IN [facility] [facility] SYMPTOMATIC [facility] Y DATE OF SYMPT ONSET [facility] HOSPITALIZED [facility] [place] [facility] CONGREGATE CARE SET [facility] ID Date Data Source [id number] 09/23/2020 08:00:58 AM EDT [facility] Name Value Range Interpretation Code Description Data Poonam rce(s) Supporting Document(s) TOTAL PROTEIN 6.2 g/dL (6.4-8.2) L [facility] ALBUMIN 2.4 g/dL (3.5-4.6) L [facility] GLOBULIN 3.8 g/dL (2.7-4.3) [facility] ALB/GLOB RATIO 0.6 RATIO [facility] BILIRUBIN,TOTAL 0.5 mg/dL (0.0-1.0) [facility] PLEASE NOTE:Total bilirubin results may be falselyelevated in patients taking Eltrombopag. BILIRUBIN,CONJUGATED 0.2 mg/dL (0.0-0.3) [facility] BILIRUBIN,UNCONJ. 0.3 mg/dL (0.0-0.7) [facility] ALKALINE PHOSPHATASE 119 U/L (45-117) H [facility] AST (SGOT) 48 U/L (11-39) H [facility] ALT (SGPT) 54 U/L (12-78) [facility] ID Date Data Source [id number] 09/23/2020 08:00:58 AM EDT [facility] Name Value Range Interpretation Code Description Data Poonam rce(s) Supporting Document(s) SODIUM 145 mmol/L (136-145) [facility] POTASSIUM 3.2 mmol/L (3.6-5.2) L [facility] CHLORIDE 112 mmol/L (100-108) H [facility] CO2 27 mmol/L (22-31) [facility] ANION GAP 6 mmol/L (7-16) L [facility] UREA NITROGEN 4 mg/dL (7-24) L [facility] CREATININE 0.54 mg/dL (0.60-1.00) L [facility] BUN/CREAT RATIO 7.4 RATIO (10.0-20.0) L [facility] GLUCOSE 94 mg/dL (70-99) [facility] CALCIUM 8.7 mg/dL (8.4-10.2) [facility] GFR >60 ml/min/1.73m2 (>59) [facility] GFR ( AMER) >60 ml/min/1.73m2 (>59) [facility] GFR INTERPRETATION [facility] --NORMAL KIDNEY FUNCTION OR MILD DISEASE - GFR >OR= 60CHRONIC KIDNEY DISEASE - GFR 15 - 59RENAL FAILURE - GFR <15 Est. GFR calculation based on the MDRDstudy equation, which assumes a steadystate for creatinine. Est. GFR should notbe used for medication dosing. ID Date Data Source [id number] 09/23/2020 07:35:16 AM EDT [facility] Name Value Range Interpretation Code Description Data Poonam rce(s) Supporting Document(s) WBC 15.6 10*3/uL (4.1-11.0) H [facility] RBC 3.24 10*6/uL (4.00-5.40) L [facility] HGB 9.6 g/dL (12.0-16.0) L [facility] HCT 30.3 % (36.0-47.0) L [facility] MCV 93.6 fL (80.0-95.0) [facility] MCH 29.7 pg (27.0-32.0) [facility] MCHC 31.8 g/dL (32.0-36.0) L [facility] RDW 15.5 % (10.5-14.5) H [facility] PLT 381 10*3/uL (150-450) [facility] MPV 8.1 fL (7.1-10.7) [facility] ID Date Data Source [id number] 09/21/2020 09:39:00 AM EDT [facility] [address] [place] [address] PHONE: [phone] FAX: [phone] Name .................. : SHIVANI Lopez Acct Number.................. : [id number] ROOM. ................. : CCU MR Number ................... : [id number] Stay type ............. : I/P Discharge Date......... ... : 09/18/20 Admit Date ......... : 09/17/20 Admit Phys .................... : MATTHEW CHANEL Date of ....... : 1970 Family Phys ................... : JOSE LUIS ROBLEDO Phone .................. : [phone] Age ................................ : 50 Film# .................. .:[id number] Sex ................................. : F Unsigned transcriptions are preliminary reports and do not represent a medical or legal document CT THORAX W/O CONTRAST [id number] COMPLETE:09/17/20 16:42 KJE [id number] Reaso n(s): Congestion CT SCAN OF THE [...] rce(s) Supporting Document(s) ID Date Data Source [id number] 09/18/2020 01:28:00 [place] [address] HISTORY AND PHYSICALNAME: SHIVANI Lopez ROOM#: [id number] OF : 1970 MR#: [id number] PHYS: Jony Agarwal MD, PC DATE: 09/17/20CHIEF COMPLAINT: This 50-year-old white female presented to the office with confusion, nausea,vomiting, poor appetite.HISTORY OF PRESENT ILLNESS:This patient has not been doing well for the last 24 hours. She is not eating. She lives in [facility] under the care ofthe personnel there. She [...] No hematemesis. No hematuria.PAST MEDICAL HISTORY: [address] [place] [address] HISTORY AND PHYSICALNAME: SHIVANI Lopez ROOM#: [id number] OF : 1970 MR#: [id number] PHYS: Jony Agarwal MD, PC 51ADMISSION DATE: [...] severe anxiety 10. History of backachePLAN: [address] [place] [address] HISTORY AND PHYSICALNAME: SHIVANI Lopez ROOM#: [id number] OF : 1970 MR#: [id number] PHYS: Jony Agarwal MD, PC DATE: 09/17/20This [...] rce(s) Supporting Document(s) ID Date Data Source [id number] 09/18/2020 01:29:00 PM EDT [address] [address] DISCHARGE SUMMARYNAME: SHIVANI Lopez ROOM#: [id number] OF : 1970 MR#: [id number] PHYS: Jony Agarwal MD, PC [facility] [id number] DATE: 09/17/20 DISCHARGED:HISTORY OF PRESENT ILLNESS:This 50-year-old white female comes from [facility]. She has mental retardation and cannot express [...] spoke with Dr. Cheng, the neurologist at [facility] and he agreedand the patient will be transferred to the hospitalist service at [place] for further evaluation as a brainstem infarct or Guillain-Shevlin syndrome cannot be ruled out. She was stable at the time of discharge.FINAL DIAGNOSES:1. TIA2. Rule out stroke3. Rule out brain stem infarct4. Rule out Guillain-Shevlin syndrome5. Urosepsis6. History of mental retardation7. History of anxiety [address] [place] [address] DISCHARGE SUMMARYNAME: SHIVANI Lopez ROOM#: [id number] OF : 1970 MR#: [id number] PHYS: Jony Agarwal MD, PC DATE: 09/17/20 DISCHARGED:DD: Jony Agarwal MD, PC 09/18/20 12:08DT: DMMargoth 09/18/20 13:10DS: Jony Agarwal MD, PC 09/21/20 08:27 2 Name Value Range Interpretation Code Description Data Poonam rce(s) Supporting Document(s) ID Date Data Source [id number] 09/21/2020 07:21:36 AM EDT [facility] Name Value Range Interpretation Code Description Data Poonam rce(s) Supporting Document(s) SODIUM 147 mmol/L (136-145) H [facility] POTASSIUM 3.5 mmol/L (3.6-5.2) L [facility] CHLORIDE 116 mmol/L (100-108) H [facility] CO2 25 mmol/L (22-31) [facility] ANION GAP 6 mmol/L (7-16) L [facility] UREA NITROGEN 9 mg/dL (7-24) [facility] CREATININE 0.76 mg/dL (0.60-1.00) [facility] BUN/CREAT RATIO 11.8 RATIO (10.0-20.0) [facility] GLUCOSE 88 mg/dL (70-99) [facility] CALCIUM 8.5 mg/dL (8.4-10.2) [facility] TOTAL PROTEIN 6.2 g/dL (6.4-8.2) L [facility] ALBUMIN 2.6 g/dL (3.5-4.6) L [facility] GLOBULIN 3.6 g/dL (2.7-4.3) [facility] ALB/GLOB RATIO 0.7 RATIO [facility] ALKALINE PHOSPHATASE 149 U/L (45-117) H [facility] BILIRUBIN,TOTAL 0.5 mg/dL (0.0-1.0) [facility] PLEASE NOTE:Total bilirubin results may be falselyelevated in patients taking Eltrombopag. AST (SGOT) 74 U/L (11-39) H [facility] ALT (SGPT) 67 U/L (12-78) [facility] GFR >60 ml/min/1.73m2 (>59) [facility] GFR ( AMER) >60 ml/min/1.73m2 (>59) [facility] GFR INTERPRETATION [facility] --NORMAL KIDNEY FUNCTION OR MILD DISEASE - GFR >OR= 60CHRONIC KIDNEY DISEASE - GFR 15 - 59RENAL FAILURE - GFR <15 Est. GFR calculation based on the MDRDstudy equation, which assumes a steadystate for creatinine. Est. GFR should notbe used for medication dosing. ID Date Data Source [id number] 09/21/2020 06:58:45 AM EDT [facility] Name Value Range Interpretation Code Description Data Poonam rce(s) Supporting Document(s) WBC 13.2 10*3/uL (4.1-11.0) H [facility] RBC 3.53 10*6/uL (4.00-5.40) L [facility] HGB 10.5 g/dL (12.0-16.0) L [facility] HCT 32.7 % (36.0-47.0) L [facility] MCV 92.7 fL (80.0-95.0) [facility] MCH 29.9 pg (27.0-32.0) [facility] MCHC 32.2 g/dL (32.0-36.0) [facility] RDW 15.2 % (10.5-14.5) H [facility] PLT 300 10*3/uL (150-450) [facility] MPV 9.2 fL (7.1-10.7) [facility] ID Date Data Source [id number] 09/20/2020 09:39:00 AM EDT [facility] [address] [place] [address] PHONE: [phone] FAX: [phone] Name .................. : SHIVANI Lopez Acct Number.................. : [id number] ROOM. ................. : CCU2 MR Number ................... : [id number] Stay type ............. : I/P Discharge Date......... ... : 09/18/20 Admit Date ......... : 09/17/20 Admit Phys .................... : MATTHEW DARÍO Date of ....... : 1970 Family Phys ................... : JOSE LUIS ROBLEDO Phone .................. : [phone] Age ................................ : 50 Film# .................. .:[id number] Sex ................................. : F Unsigned transcriptions are preliminary reports and do not represent a medical or legal document CT ABD & PELVIS W/ IV ONLY [id number] COMPLETE:09/17/20 14:26 KJE [id number] Reason(s): Abdominal Distention CT SCAN OF THE [...] secondary to catheterization. Page 1 of 2 [facility] [address] [place] [address] PHONE: [phone] FAX: [phone] Name .................. : SHIVANI Lopez Acct Number.................. : [id number] ROOM. ................. : CCU2 MR Number ................... : [id number] Stay type ............. : I/P Discharge Date......... ... : 09/18/20 Admit Date ......... : 09/17/20 Admit Phys .................... : MATTHEW DARÍO Date of ....... : 1970 Family Phys ................... : JOSE LUIS ROBLEDO Phone .................. : [phone] Age ................................ : 50 Film# .................. .:[id number] Sex ................................. : F Unsigned transcriptions are preliminary reports and do not represent a medical or legal document CT ABD & PELVIS W/ IV ONLY [id number] COMPLETE:09/17/20 14:26 KJE 20579 Reason(s): Abdominal Distention While performing the above [...] rce(s) Supporting Document(s) ID Date Data Source [id number] 09/20/2020 09:39:00 AM EDT [facility] [address] [place] [address] PHONE: [phone] FAX: [phone] Name .................. : SHIVANI Lopez Acct Number.................. : [id number] ROOM. ................. : CCU2 MR Number ................... : [id number] Stay type ............. : I/P Discharge Date......... ... : 09/18/20 Admit Date ......... : 09/17/20 Admit Phys .................... : MATTHEW CHANEL Date of ....... : 1970 Family Phys ................... : JOSE LUIS ROBLEDO Phone .................. : [phone] Age ................................ : 50 Film# .................. .:[id number] Sex ................................. : F Unsigned transcriptions are preliminary reports and do not represent a medical or legal document CT HEAD W/O CONTRAST [id number] COMPLETE:09/17/20 13:01 E 65621 Reason(s): Head Injury CT OF THE HEAD [...] By Alex Kraus MD , 09/20/20 09:39, [facility] Transcribe Initials: DZ , Transcribe Date: 09/19/20 03:01, Dictation Date: Copy for: 710 MED REC DISCHARGED Page 1 of 1 Name Value Range Interpretation Code Description Data Poonam rce(s) Supporting Document(s) ID Date Data Source [id number] 09/20/2020 09:39:00 [place] [address] PHONE: [phone] FAX: [phone] Name .................. : SHIVANI Lopez Acct Number.................. : [id number] ROOM. ................. : CCU2 Number ................... : [id number] Stay type ............. : I/P Discharge Date......... ... : 09/18/20 Admit Date ......... : 09/17/20 Admit Phys .................... : MATTHEW DARÍO Date of ....... : 1970 Family Phys ................... : JOSE LUIS ROBLEDO Phone .................. : [phone] Age ................................ : 50 Film# .................. .:[id number] Sex ................................. : F Unsigned transcriptions are preliminary reports and do not represent a medical or legal document ABDOMEN MULTIPLE VIEW [id number] COMPLETE:09/17/20 15:25 [facility] [address] Reason(s): Abdominal Distention MULTIPLE VIEW ABDOMEN WITH [...] structures demonstrates degenerative changes. Examination dictated by KIERSETN Babin. Examination was reviewed with Alex Kraus MD, radiologist at the time of this dictation. Electronically Reviewed and Signed By Alex Kraus MD , 09/20/20 09:39, [facility] Transcribe Initials: NASRIN , Transcribe Date: 09/19/20 03:04, Dictation Date: Copy for: 710 MED REC DISCHARGED Page 1 of 1 Name Value Range Interpretation Code Description Data Poonam rce(s) Supporting Document(s) ID Date Data Source [id number] 09/19/2020 07:48:06 AM EDT [facility] Name Value Range Interpretation Code Description Data Poonam rce(s) Supporting Document(s) SODIUM 146 mmol/L (136-145) H [facility] POTASSIUM 3.2 mmol/L (3.6-5.2) L [facility] CHLORIDE 111 mmol/L (100-108) H [facility] CO2 26 mmol/L (22-31) [facility] ANION GAP 9 mmol/L (7-16) [facility] UREA NITROGEN 16 mg/dL (7-24) [facility] CREATININE 0.82 mg/dL (0.60-1.00) [facility] BUN/CREAT RATIO 19.5 RATIO (10.0-20.0) [facility] GLUCOSE 104 mg/dL (70-99) H [facility] CALCIUM 8.6 mg/dL (8.4-10.2) [facility] TOTAL PROTEIN 6.4 g/dL (6.4-8.2) [facility] ALBUMIN 2.8 g/dL (3.5-4.6) L [facility] GLOBULIN 3.6 g/dL (2.7-4.3) [facility] ALB/GLOB RATIO 0.8 RATIO [facility] ALKALINE PHOSPHATASE 166 U/L (45-117) H [facility] BILIRUBIN,TOTAL 0.5 mg/dL (0.0-1.0) [facility] PLEASE NOTE:Total bilirubin results may be falselyelevated in patients taking Eltrombopag. AST (SGOT) 79 U/L (11-39) H [facility] ALT (SGPT) 77 U/L (12-78) [facility] GFR >60 ml/min/1.73m2 (>59) [facility] [facility] GFR ( AMER) >60 ml/min/1.73m2 (>59) [facility] GFR INTERPRETATION [facility] --NORMAL KIDNEY FUNCTION OR MILD DISEASE - GFR >OR= 60CHRONIC KIDNEY DISEASE - GFR 15 - 59RENAL FAILURE - GFR <15 Est. GFR calculation based on the MDRDstudy equation, which assumes a steadystate for creatinine. Est. GFR should notbe used for medication dosing. ID Date Data Source [id number] 09/19/2020 07:48:06 AM EDT [facility] Name Value Range Interpretation Code Description Data Poonam rce(s) Supporting Document(s) TSH,ULTRASENSITIVE @ 1.068 mIU/L (0.360-4.170) [facility] PERFORMED AT 6 [facility] [address] ID Date Data Source [id number] 09/19/2020 01:53:00 AM EDT [facility] [place] [address] [id number] NAME: GRACIELA BRYANT OF : 1970REPORT: ADMISSION NOTEPATIENT NUMBER: [id number] STATUS: IPMEDICAL RECORD NUMBER: [id number] OF ADMISSION: 1ROOM: [address] [place] [address] CARE PHYSICIAN: KANIKA MathiasKYHERRERA COMPLAINT: Here transferred from [facility] due todysphagia, gait instability, and urosepsis.HISTORY OF PRESENT ILLNESS: The patient is a 50-year-old Americanfemale. She is a resident of a longterm in [place]. She is known to have baseline mental retardation. She is not able to express herself. The patient was transferred from the longterm to the [facility] on September 17, was vomiting and dysphagia. [...] with Dr. Cheng, from Neurology Department at [facility] and her PCP transferred her here for further management as there was a feeling that she might have some neurological issues driving her dysphagia in addition to her weaknesses in her legs.When I examined the patient today, she was with her aide from the [facility]. The patient does not express herself. She has severe hard ofhearing and mental retardation. She was not able to give me anyinformation. I did speak to her nurse manager clinical services in the longterm. Thenurse manager clinical services explained to me that she usually ambulates [...] she had fever on admission on 09/17/2020 [facility]. Found to have a urine infection. She [...] HISTORY: She is a resident of a longterm. No mentioning of druguse or alcohol or [...] IMAGING: The following labs were done yesterday [facility]. She had a WBC of 9.5, hemoglobin 10.8, atdkosphzr39.6, platelet count 215,000 with a neutrophil of [...] bowel gaspattern is nonspecific.EKG on presentation to [facility], she had sinus tachycardia.ASSESSMENT AND PLAN:1. Urinary [...] condition was discussed by Dr. Agarwal from [facility] and Dr. Cheng. She will need to be seen during the day by Neurology for evaluation.6. Severe anxiety disorder. She was on 3 mg of Ativan in the prison per day. We will give her 1 [...] However, I spoke to her nurse manager clinical services at the longterm and she is full code.12. DVT prophylaxis. We will continue Lovenox.DICTATED BY: CALI Cartwrightictated: 09/18/2020 22:37DT: 09/18/2020 22:48Job #: [id number]: Jony Agarwal MDNOTE: [facility] computer generated reports are notconfirmed or authenticated unless they are signed by the providerElectronically Authenticated and Edited by:LUIS JULES MD On 09/19/2020 01:53 AM EDT Name Value Range Interpretation Code Description Data Poonam rce(s) Supporting Document(s) ID Date Data Source [id number] 09/18/2020 09:04:15 PM EDT [facility] Name Value Range Interpretation Code Description Data Poonam rce(s) Supporting Document(s) POC GLUCOSE 103 mg/dL (70-99) H [facility] Ania Jiménez NOTIFIED NURSEPERFORMED BY CLINICAL S TAFF ID Date Data Source [id number] 09/18/2020 02:23:00 PM EDT [facility] [address] [place] [address] RESPIRATORY CARE REPORT ==== ---------NAME------- NUMBER SEX AGE ADMIT DISC. XRAY# F/C TYPEKENMIKE Lopez [id number] F 50 09/17/20 [id number] M4 I/P DATE OF : 1970 M/R# [id number] #: [id number] CCU2 LOCATION: EMERGENCY DEPT [facility] [address] COMPL ETE:09/18/20 08:15 [facility] [address] PHYSICIAN: MATTHEW CHANEL Name Value Range Interpretation Code Description Data Poonam rce(s) Supporting Document(s) ID Date Data Source [id number] 09/18/2020 09:11:00 AM EDT [facility] Name Value Range Interpretation Code Description Data Poonam rce(s) Supporting Document(s) Erythrocyte sedimentation rate by Westergren method 57 mm/hr 0 - 30 H [facility] SED RATE REENTER 57 [facility] ID Date Data Source [id number] 09/18/2020 08:26:00 AM EDT [facility] Name Value Range Interpretation Code Description Data Poonam rce(s) Supporting Document(s) CBC W/AUTOMATED DIFF [facility] COMPLETE BLOOD COUNT Leukocytes [#/volume] in Blood by Automated count 9.5 10^3/uL 4.2 - 1 1.0 [facility] Erythrocytes [#/volume] in Blood by Automated count 3.61 10^6/uL 4. 20 - 5.40 L [facility] Hemoglobin [Mass/volume] in Blood 10.8 g/dL 12.0 - 16.0 L [facility] Hematocrit [Volume Fraction] of Blood by Automated count 33.6 % 3 7.0 - 47.0 L [facility] Erythrocyte mean corpuscular volume [Entitic volume] by Auto mated count 93.1 fL 81.0 - 101 [facility] Erythrocyte mean corpuscular hemoglobin [Entitic mass] by Automated count 29.9 pg 27.0 - 34.0 [facility] Erythrocyte mean corpuscular hemoglobin concentration [Mass/volume] by Automated count 32.1 g/dL 31.0 - 36.0 [facility] Erythrocyte distribution width [Ratio] by Automated count 15.3 % 11.5 - 14.5 H [facility] Platelets [#/volume] in Blood by Automated count 215 10^3/uL 150 - 45 0 [facility] Platelet mean volume [Entitic volume] in Blood by Automated count 11.7 fL 7.4 - 10.4 H [facility] Neutrophils/100 leukocytes in Blood by Automated count 80.2 % 37. 0 - 80.0 H [facility] Lymphocytes/100 leukocytes in Blood by Manual count 13.1 % 25.0 - 40.0 L [facility] Monocytes/100 leukocytes in Blood by Automated count 6.2 % 3.0 - 8.0 [facility] Eosinophils/100 leukocytes in Blood by Automated count 0.0 % 0.0 - 7.0 [facility] Basophils/100 leukocytes in Blood by Automated count 0.1 % 0.0 - 2.5 [facility] %IG 0.4 % 0.0 - 0.0 [facility] %NRBC 0.2 % 0.0 - 0.0 H [facility] al Neutrophils [#/volume] in Blood by Automated count 7.62 10^3/uL 2.00 - 6.90 H [facility] Lymphocytes [#/volume] in Blood by Automated count 1.25 10^3/uL 0.60 - 3.40 [facility] Monocytes [#/volume] in Blood by Automated count 0.59 10^3/uL 0.00 - 0.90 [facility] Eosinophils [#/volume] in Blood by Automated count 0.00 10^3/uL 0.00 - 0.70 [facility] Basophils [#/volume] in Blood by Automated count 0.01 10^3/uL 0.00 - 0.20 [facility] #IG 0.04 10^3/uL 0.00 - 0.10 [facility] #NRBC 0.02 10^3/uL 0.00 - 0.00 H [facility] MANUAL DIFF NOT INDICATED [facility] RBC MORPH NOT INDICATED [facility] ID Date Data Source [id number] 09/18/2020 07:58:00 AM EDT [facility] Name Value Range Interpretation Code Description Data Poonam rce(s) Supporting Document(s) C reactive protein [Mass/volume] in Serum or Plasma by High sensitivity method 111.51 MG/L 1.00 - 3.00 H [facility] CDC/S HS-CRP CUT-OFF: RELATIVE RISK: <1.0 mg/L Low 1.0 - 3.0 mg/L Average >3.0 mg/L High Optimally, the average of HS-CRP results repeated two weeks apart should be used for risk assessment. ID Date Data Source [id number] 09/18/2020 07:36:00 AM EDT [facility] Name Value Range Interpretation Code Description Data Poonam rce(s) Supporting Document(s) COMPREHENSIVE METABOLIC PANEL [facility] COMPREHENSIVE METABOLIC PANEL Sodium [Moles/volume] in Serum or Plasma 143 mEq/L 134 - 153 [facility] Potassium [Moles/volume] in Serum or Plasma 3.9 mEq/L 3.6 - 5.0 [facility] Chloride [Moles/volume] in Serum or Plasma 107 mEq/L 98 - 107 [facility] Carbon dioxide, total [Moles/volume] in Serum or Plasma 27 MEQ/L 22 - 30 [facility] Glucose [Mass/volume] in Serum or Plasma 129 MG/DL 70 - 99 H [facility] BUN 16 MG/DL 7 - 21 [facility] Creatinine [Mass/volume] in Serum or Plasma 0.7 MG/DL 0.7 - 1.5 [facility] BUN/CREAT 23 8 - 27 [facility] Protein [Mass/volume] in Serum or Plasma 6.6 G/DL 6.3 - 8.2 [facility] Albumin [Mass/volume] in Serum or Plasma 3.6 G/DL 3.9 - 5.0 L [facility] Globulin [Mass/volume] in Serum by calculation 3.0 GM/DL 2.4 - 3.2 [facility] A/G RATIO 1.2 0.8 - 2.0 [facility] Calcium [Mass/volume] in Serum or Plasma 9.3 MG/DL 8.4 - 10.2 [facility] Bilirubin.total [Mass/volume] in Serum or Plasma <0.7 MG/DL 0.2 - 1.3 [facility] Alkaline phosphatase [Enzymatic activity/volume] in Serum or Plasma 171 U/L 38 - 126 H [facility] Aspartate aminotransferase [Enzymatic activity/volume] in Serum or Plasma 60 U/L 5 - 40 H [facility] Alanine aminotransferase [Enzymatic activity/volume] in Seru m or Plasma 61 U/L 7 - 56 H [facility] Anion gap 3 in Serum or Plasma 9.0 mmol/L 8.0 - 16.0 [facility]GE 50 y[facility] >60 mL/min [facility] AFR AMER GFR >60 mL/min [facility] Male GFR In terprentation 20-49 [...] >32 mL/min Normal ID Date Data Source [id number] 09/18/2020 07:21:00 AM EDT [facility] Name Value Range Interpretation Code Description Data Poonam rce(s) Supporting Document(s) Lactate [Moles/volume] in Serum or Plasma 0.8 MMOL/L 0.2 - 2.2 [facility] ID Date Data Source [id number] 09/21/2020 06:27:00 AM EDT [facility] Name Value Range Interpretation Code Description Data Poonam rce(s) Supporting Document(s) Borrelia burgdorferi IgG+IgM Ab [Units/volume] in Serum <0.91 ISR 0. 00-0.90 [facility] Negative <0.91 Equivocal 0.91 - 1.09 Positive >1.09 Borrelia burgdorferi IgM Ab [Units/volume] in Serum by Immun oassay <0.80 index 0.00-0.79 [facility] Negative <0.80 Equivocal 0.80 - 1.19 Positive >1.19 IgM levels may peak at 3-6 weeks post infection, then gradually decline. ID Date Data Source [id number] 09/21/2020 01:33:00 PM EDT [facility] Name Value Range Interpretation Code Description Data Poonam rce(s) Supporting Document(s) Campylobacter coli+jejuni+upsaliensis DN A [Presence] in Stool by Target amplification with non-probe based detection Not Detected Not Detected [facility] Clostridium difficile toxin A+B (tcdA+tc dB) genes [Presence] in Stool by Target amplification with non-probe based detection Not Detected Not Detected [facility] Plesiomonas shigelloides DNA [Presence] in Stool by Target amplification with non-probe based detection Not Detected Not Detected [facility] Salmonella enterica+bongori DNA [Presenc e] in Stool by Target amplification with non-probe based detection Not Detected Not Detected [facility] Vibrio cholerae+parahaemolyticus+vulnifi cus DNA [Presence] in Stool by Target amplification with non-probe based detection Not Detected Not Detected [facility] Vibrio cholerae DNA [Presence] in Stool by Target amplification with non-probe based detection Not Detected Not Detected [facility] Yersinia enterocolitica DNA [Presence] i n Stool by Target amplification with non-probe based detection Not Detected Not Detected [facility] Escherichia coli enteroaggregative Devyn p lasmid aggR+aatA genes [Presence] in Stool by Target amplification with non-probe based detection Not Detected Not Detected [facility] Escherichia coli enteropathogenic eae ge ne [Presence] in Stool by Target amplification with non-probe based detection Not Detected Not Detected [facility] Escherichia coli enterotoxigenic ltA+st1 a+st1b genes [Presence] in Stool by Target amplification with non-probe based detection Not Detected Not Detected [facility] Escherichia coli shiga-like toxin 1+2 (s tx1+stx2) genes [Presence] in Stool by Target amplification with non-probe based detection Not Detected Not Detected [facility] Escherichia coli O157 DNA [Presence] in Stool by Target amplification with non- probe based detection Not applicable Not Detected [facility] Shigella species+EIEC invasion plasmid a ntigen H (ipaH) gene [Presence] in Stool by Target amplification with non-probe based detection Not Detected Not Detected [facility] Cryptosporidium sp DNA [Presence] in Sto ol by Target amplification with non- probe based detection Not Detected Not Detected [facility] Cyclospora cayetanensis DNA [Presence] i n Stool by Target amplification with non-probe based detection Not Detected Not Detected [facility] Entamoeba histolytica DNA [Presence] in Stool by Target amplification with non- probe based detection Not Detected Not Detected [facility] Giardia lamblia DNA [Presence] in Stool by Target amplification with non-probe based detection Not Detected Not Detected [facility] Adenovirus F(40+41) DNA [Presence] in St ool by Target amplification with non- probe based detection Not Detected Not Detected [facility] Astrovirus subtypes 1-8 RNA [Presence] i n Stool by Target amplification with non-probe based detection Not Detected Not Detected [facility] Norovirus genogroup I+II RNA [Presence] in Stool by Target amplification with non-probe based detection Not Detected Not Detected [facility] Rotavirus A RNA [Presence] in Stool by T arget amplification with non-probe based detection Not Detected Not Detected [facility] Sapovirus genogroups I+II+IV+V RNA [Pres ence] in Stool by Target amplification with non-probe based detection Not Detected Not Detected [facility] ID Date Data Source [id number] 09/17/2020 08:33:00 PM EDT [facility] [address] [place] [address] RESPIRATORY CARE REPORT ==== ---------NAME------- NUMBER SEX AGE ADMIT DISC. XRAY# F/C TYPESHIVANI Lopez [id number] F 50 09/17/20 [id number] M4 I/P DATE OF : 1970 M/R# [id number] #: [id number] CCU2 LOCATION: EMERGENCY DEPT EKG [id number] COMPL ETE:09/17/20 12:15 [facility] [id number] PHYSICIAN: MATTHEW Johnston Name Value Range Interpretation Code Description Data Poonam rce(s) Supporting Document(s) ID Date Data Source [id number] 09/17/2020 09:12:00 AM EDT [facility] 1 OrderSheet [facility] Emergency Department [address] [place] [address] Phone #: [phone] 09/17/2020 09:12 Patient: LEAH BRYANT Sex: F : 1970 Age: 50yWEIGHT:67.3 kg (M) HEIGHT:65 inches (S) BMI:24.7ALLERGIES: NoneCHIEF COMPLAINT: vomitingDIAGNOSIS: Urinary tract infectious disease, Sinus tachycardiaLAB ORDERSOrder Description Priority Entered Acknowledged InitialedCBC w Diff STAT 10:09/17/2020 10:47 Howard Vital Jack ; Keyla AbrahamCMP STAT 10:09/17/2020 10:47 Howard Vital Jack ; Keyla AbrahamUrinalysis (Cath STAT 10:09/17/2020 11:14 AmanuelSpec) Ad Lawrence ; Kelya AbrahamCulture, Urine STAT 10:09/17/2020 11:14 Amanuel,(Urine, Catheter) Ad Lawrence ; Keyla AbrahamLipase STAT 10:09/17/2020 10:47 Howard Vital Jack ; Keyla AbrahamCOVID-19 CAH (Not STAT 12:22 09/17/2020 12:22 Alan Kiranymptomatic as Nisreen Kiran R.N.; R.N.Defined by CDC) Verbal order per;(09/17/2020) (Not Ad LawrenceFir Test)(Hospitalized) (Not)(Resident inCongregate CareSetting) (NotEmployed inHealthcare Setting)Blood Culture STAT 15:06 09/17/2020 15:57 Amanuel,q10m X2 (Sched Ad Lawrence ; Keyla R.N.15:06 09/17/2020)Blood Culture STAT 15:06 09/17/2020 15:57 Amanuel,q10m X2 (Sched Ad Lawrence ; Keyla R.N.15:16 09/17/2020)Lactic Acid STAT 15:09 09/17/2020 15:57 Howard Vital Jack ; Keyla AbrahamDIAGNOSTIC STUDY ORDERS 2 OrderSheet [facility] Emergency Department [address] [place] [address] Phone #: ext- [phone] 09/17/2020 09:12 Patient: LEAH BYRANT Sex: F : 1970 Age: 50yOrder Description [...] (X1)Rocephin 15:39 09/17/2020 15:58 Amanuel,(1gm/50mL) IVPB Ad Lawrecne R.N.1000 mg withDextrose 50 mlspike bag (D5W)GENERAL ORDERSOrder Description Priority Entered Acknowledged InitialedEKG 10:05 09/17/2020 10:34 Howard Vital Jack ; Keyla Abraham[Electronically signed by Keyla Vital R.N. (17:12 09/17/2020)][Electronically signed by Ad Lawrence (17:56 09/17/2020)][Electronically locked by Keyla Vital R.N. (17:12 09/17/2020)] Name Value Range Interpretation Code Description Data Poonam rce(s) Supporting Document(s) ID Date Data Source [id number] 09/17/2020 09:12:00 AM EDT [facility] 1 Medication Reconciliation Report [facility] Emergency Department [address] [place] [address] Phone #: ext- [phone] 09/17/2020 09:12 Patient: [...] (40 mg), daily 2 Medication Reconciliation Report [facility] Emergency Department [address] [place] [address] Phone #: ext- [phone] 09/17/2020 09:12 Patient: [...] rce(s) Supporting Document(s) ID Date Data Source [id number] 09/17/2020 09:12:00 AM EDT [facility] 1 Medication Administration Record [facility] Emergency Department [address] [place] [address] Phone #: [phone]- [phone] 09/17/2020 09:12 Patient: LEAH BRYANT Sex: F : 1970 Age: 50yWeight: 67.3 kgHeight/Length: 65 inBMI: 24.7ALLERGIES: None Date/Time Medication Administered Medication OrderedGiven ATIVAN [IM] (LORAZEPAM) Ativan IM 1 mg (NOW x1, HIGH10:36 09/17/2020 Dose: 1 mg IM ALERT MEDICATION)Keyla Vital R.N.Start IV NS NS IV 1000 mL Bolus: : Bolus [id number] 09/17/2020 Dose: IV Fluids mL (X1)Nisreen Kiran R.N. Bolus: 1000 mL over 1 hour(s)---- Dispensed: 1000 mL bagStop Site: #1 left AC13:14 09/17/2020Tasha Vital R.N.Start IV NS NS IV 1000 mL Bolus: : Bolus [id number]:42 09/17/2020 Dose: IV Fluids mL (X1)Nisreen Kiran R.N. Bolus: 1000 mL over 1 hour(s)---- Dispensed: 1000 mL bagStop Site: #1 left AC17:00 09/17/2020Keyla Vital R.N.Start ROCEPHIN (1GM/50ML) [IVPB] Rocephin (1gm/50mL) IVPB [id number] 09/17/2020 (CEFTRIAXONE SODIUM) mg with Dextrose 50 ml spike Keyla Cordon R.N. Dose: 1 gm IVPB (D5W)---- Rate: 100 mL/hr over 30 minute(s)Stop Dispensed: 50 mL bag17:11 09/17/2020 Site: #1 left Keyla Johnson R.N. Name Value Range Interpretation Code Description Data Poonam rce(s) Supporting Document(s) ID Date Data Source [id number] 09/17/2020 09:12:00 AM EDT [facility] 1 General Instructions [facility] Emergency Department [address] [place] [address] Phone #: ext- [phone] 09/17/2020 09:12 Patient: LEAH BRYANT Sex: F : 1970 Age: 50ySinus tachycardia.Acute urinary tract infection with cystitis. No pyelonephritis or hematuria.(Electronically signed by Ad Lawrence 09/17/2020 17:56) Name Value Range Interpretation Code Description Data Poonam rce(s) Supporting Document(s) ID Date Data Source [id number] 09/17/2020 09:12:00 AM EDT [facility] 1 Clinical Report - Nurses [facility] Emergency Department [address] [place] [address] Phone #: ext- [phone] 09/17/2020 09:12 Patient: LEAH BRYANT Sex: F : 1970 Age: 50yTRIAGE Arrived by private vehicle. 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 Accompanied by friend. ( 2 WEEKS [...] She has had weakness. ( VOMIT). Treatment INTEL ANALYST: None. SEPSIS SCREEN: SIRS SCREEN NEGATIVE: heart [...] Kiran R.N. 2 Clinical Report - Nurses [facility] Emergency Department [address] [place] [address] Phone #: ext- [phone] 09/17/2020 09:12 Patient: [...] Verbalizes understanding. 3 Clinical Report - Nurses [facility] Emergency Department [address] [place] [address] Phone #: ext- [phone] 09/17/2020 09:12 [id number] Sex: F : 1970 Age: 50y FUNCTIONAL [...] Patient transported to CT by stretcher with director of radiology. Not transported from ED by wheelchair. --11:23 09/17/20 Nisreen Kiran R.N. 11:51 09/17/20. Patient returned from CT by stretcher with mask. --12:06 09/17/20 Keyla Vital R.N. 4 Clinical Report - Nurses [facility] Emergency Department [address] [place] [address] Phone #: ext- [phone] 09/17/2020 09:12 Patient: LEAH BRYANT Sex: F : 1970 Age: 50y 12:09/17/2020 Site #1 started via IV in the left antecubital space with an 20g angiocath, with aseptic technique and good blood return; one attempt. --12:09/17/20 Nisreen Kiran R.N. 12:22 09/17/2020 Started bag [...] 09/17/20 Keyla Vital R.N. Patient returned from [place] by stretcher with mask and tech. --14:23 [...] 09/17/20 Keyla Vital R.N. Patient returned from [place] by stretcher with tech. --16:00 09/17/20 Keyla Vital R.N. 16:00 09/17/20. BP: 106/79. MAP: 88. HR: 138. RR: 18. O2 saturation: 98%. Temp: 98.5 F. --16:02 09/17/20 Keyla Vital R.N.DISPOSITION / DISCHARGE 17:00 09/17/2020 IV Fluids IV NS via IV site #1 Discontinued: bag #1 infused upon admission. Total 5 Clinical Report - Nurses [facility] Emergency Department [address] [place] [address] Phone #: [phone]- [phone] 09/17/2020 09:12 Patient: LEAH BRYANT Sex: F [...] [place]). Bed obtained and ready. --17:12 09/17/20 eKyla Vital R.N. 17:00 09/17/20. BP: 118/82. MAP: 94. HR: 130. RR: 18. O2 saturation: 100%. Temp: 98.4 F. Pain level now: cannot quantify. --17:12 09/17/20 Keyla Vital R.N.Locked/Released at 09/17/2020 17:12 by Keyla Vital R.N. Name Value Range Interpretation Code Description Data Poonam rce(s) Supporting Document(s) ID Date Data Source [id number] 09/17/2020 09:12:00 AM EDT [facility] 1 Clinical Report - Physicians/Mid Levels [facility] Emergency Department [address] [place] [address] Phone #: ext- [phone] 09/17/2020 09:12 Patient: LEAH BRYANT Sex: F : 1970 Age: 50y Time Seen: 10:09 09/17/2020. Arrived- By private vehicle. 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 Disposition decision: 16:10 09/17/2020.HISTORY OF PRESENT ILLNESS [...] injured her lips. Found on floor of [facility]. Seen at PCP office earlier in week [...] daily. 2 Clinical Report - Physicians/Mid Levels [facility] Emergency Department [address] [place] [address] Phone #: ext- [phone] 09/17/2020 09:12 Patient: [...] extremities). 3 Clinical Report - Physicians/Mid Levels [facility] Emergency Department [address] [place] [address] Phone #: pup- [phone] 09/17/2020 09:12 Patient: LEAH BRYANT Sex: F [...] 2.2) COVID-19 CAH: (LAKEISHA: 09/17/2020 12:15) ( [facility] 09/17/2020 13:04) Final results Test Result Flag [...] IV Contrast Only: (LAKEISHA: 09/17/2020 12:01) ( [facility] 09/17/2020 14:26) In Progress CT ABD Reason(s): Abdominal Distention TRANSPORTATION: S IV? IV?(Yes) O2? Oxygen?(No) Ro CBC w Diff: (LAKEISHA: 09/17/2020 10:16) ( [facility] 09/17/2020 10:45) Final results Test Result Flag [...] 6.90) 4 Clinical Report - Physicians/Mid Levels [facility] Emergency Department [address] [place] [address] Phone #: ext- [phone] 09/17/2020 09:12 Patient: [...] Male GFR Interprentation 20-49 yrs >60 mL/min Otxuva03-56 yrs >56 mL/min Normal 60- 69 yrs >49 mL/min Normal 70-79yrs>42 mL/min Normal 80 and above >35 mL/min Normal Female GFRInterpretation 20-39 yrs >60 mL/min Normal 40-49 yrs >58 mL/minNormal 50-59 yrs >51 mL/min Normal 60-69 yrs >45 mL/min Txdzii41-74 yrs >39 mL/min Normal 80 and above >32 mL/min NormalUrinalysis: (LAKEISHA: 09/17/2020 11:00) ( [facility] [place] 11:39[place] Final results Test Result Flag Units (Reference) URINALYSIS URINALYSIS SOURCE R 5 Clinical Report - Physicians/Mid Levels [facility] Emergency Department [address] [place] [address] Phone #: ext- [phone] 09/17/2020 09:12 Patient: LEAH BRYANT Sex: F [...] (NORMAL: NONE Lipase: (LAKEISHA: 09/17/2020 10:16) ( [facility] [place]/17/2020 10:44) Final results Test Result Flag [...] visits. 6 Clinical Report - Physicians/Mid Levels [facility] Emergency Department [address] [place] [address] Phone #: ext- [phone] 09/17/2020 09:12 Patient: LEAH BRYANT Sex: F : 1970 Age: 50y Disposition: Observation in the Acute Inpatient Unit.CLINICAL IMPRESSION Sinus tachycardia. Acute urinary tract infection with cystitis. No pyelonephritis or hematuria.(Electronically signed by Ad Lawrence 09/17/2020 17:56) Name Value Range Interpretation Code Description Data Poonam rce(s) Supporting Document(s) ID Date Data Source [id number] 09/17/2020 09:12:00 AM EDT [facility] LEAH Khalil VisitID: [id number] Date: 16:42Med rec request worksheet faxed to [employer] with t-system overview and paitents homemedication rec. @ [id number]-system overview faxed to [place] [id number] confirmed recipt with Stacy(Electronically signed by Long Gonsalez - 09/17/2020 16:42) Name Value Range Interpretation Code Description Data Poonam rce(s) Supporting Document(s) ID Date Data Source [id number] 09/22/2020 06:12:00 PM EDT [facility] [id number] Name Value Range Interpretation Code Description Data Poonam rce(s) Supporting Document(s) Bacteria identified in Blood by Culture [facility] NO GROWTH AFTER 5 DAYS ID Date Data Source [id number] 09/23/2020 01:56:00 PM EDT [facility] Name Value Range Interpretation Code Description Data Poonam rce(s) Supporting Document(s) CULTURE BLOOD [facility] _CULTURE BLOOD_ [place] [address] CLIA# [id number] SEE SCANNED REPORT{ PRELIM ID Date Data Source [id number] 09/23/2020 01:56:00 PM EDT [facility] Name Value Range Interpretation Code Description Data Poonam rce(s) Supporting Document(s) CULTURE BLOOD [facility] _CULTURE BLOOD_ TEST PERFORM ED AT [address] [address] CLIA# [id number] SEE SCANNED REPORT{ PRELIM ID Date Data Source [id number] 09/17/2020 03:45:00 PM EDT [facility] Name Value Range Interpretation Code Description Data Poonam rce(s) Supporting Document(s) Lactate [Moles/volume] in Serum or Plasma 0.8 MMOL/L 0.2 - 2.2 [facility] ID Date Data Source [id number] 09/17/2020 12:15:00 PM EDT [facility] Name Value Range Interpretation Code Description Data Poonam rce(s) Supporting Document(s) COVID19 Case rprt NOT DETECTED [facility] This lab was ordered by [facility] and reported by [facility]. ID Date Data Source [id number] 09/17/2020 01:04:00 PM EDT [facility] NOT DETECTEDNOT DETECTED{ PROC EDURAL CONTROL VALID [...] rce(s) Supporting Document(s) ID Date Data Source [id number] 09/22/2020 01:38:00 PM EDT [facility] Name Value Range Interpretation Code Description Data Poonam rce(s) Supporting Document(s) CULTURE URINE [facility] _CULTURE URINE_$$[id number]$$[id number]$$[id number]$$[id number]$$770542$$596836$$118856$$305955$$113136$$ 527558$$034026$$164744$$927831$$472135$$858441$$444806$$646517$$977383$$989609$$ 245479$$721708$$028800$$757894$$480286$$248676$$[id number]$$[id number] -- Continued on next page --Patient: SHIVANI Lopez Order: Page 2Culture: CULTURE URINE Status: Final ==== -- Continued on next page --Patient: SHIVANI Lopez Order: Page 2Culture: CULTURE URINE Status: Prelim ===== -- Continued on next page --Patient: SHIVANI Lopez Order: Page 2Culture: CULTURE URINE Status: Prelim =====$$[id number] DATE/TIME: 09/22/2020 12:06Culture: CULTURE URINE Status: FinalIsolate 1 Klebsiella oxytoca Flag: A . . . . . . .4Greater than 100,000 colony forming units per mL Previous result entered on 09/21/2020 12:33 ET Gram negative rods Previous result entered on 09/19/2020 02:23 ET Specimen has been received and testing has been initiated.Urine Culture,Comprehensive: G6Uzrijtonky oxytoca Flag: AIsolate 2 Escherichia coli Flag: [...] Trimethoprim/Sulfa S S P1 Test performed by: [facility] #: [id number] [address] [place] [address] [id number] [facility] [id number] Director : Neil Estrada MD NPI #:[place] Worker : 09/20/20.0629.XMT.SENT REF 09/21/20.1335.XMT.SENT REF 09/21/20.1337.XMT.SENT REF 09/22/20.1338.XMT.SENT REF ID Date Data Source [id number] 09/17/2020 11:38:00 AM EDT [facility] Name Value Range Interpretation Code Description Data Poonam rce(s) Supporting Document(s) [facility] COL[facility] yellow NORMAL: Yellow [facility] CLARITY cloudy NORMAL: Clear [facility] Specific gravity of Urine by Test strip 1.010 1.001 - 1.030 [facility] pH 7 5 - 9 [facility] Glucose [Mass/volume] in Urine by Test strip NORM NORMAL: Negat [facility] Bilirubin.total [Presence] in Urine by Test strip NEG NORMAL: Negative [facility] Ketones [Presence] in Urine by Test strip 5 NORMAL: Negative [facility] Protein [Mass/volume] in Urine by Test strip 15 NORMAL: Negat [facility] Nitrite [Presence] in Urine by Test strip NEG NORMAL: Negative [facility] BLOOD 25 NORMAL: Negative [facility] Leukocyte esterase [Presence] in Urine by Test strip 500 MIHAELA L: Negative [facility] Urobilinogen [Mass/volume] in Urine by Test strip NOR less pieter n 1.0 mg/dL [facility] MICROSCOPIC See Below [facility] ital WBC 5 - 7 NORMAL: NONE SEEN A [facility] Erythrocytes [#/volume] in Urine by Test strip 1 - 3 NORMAL: NON E SEEN [facility] EPITHELIAL MODERATE NORMAL: NONE SEEN A [facility] Bacteria [Presence] in Urine sediment by Light microscopy 2+ MOD NORMAL: NONE SEEN A [facility] Mucus [Presence] in Urine sediment by Light microscopy 1+ NOR MAL: NONE SEEN [facility] Amorphous sediment [Presence] in Urine sediment by Light maximus roscopy 2+ NORMAL: NONE SEEN [facility] ID Date Data Source [id number] 09/17/2020 06:46:00 PM EDT [facility] Name Value Range Interpretation Code Description Data Poonam rce(s) Supporting Document(s) TROPONIN T <0.01 NG/ML 0.00 - 0.10 [facility] TROPONIN T0.1 ng/ml Recommended as the c linical threshold value forTroponin T. ID Date Data Source [id number] 09/17/2020 06:38:00 PM EDT [facility] Name Value Range Interpretation Code Description Data Poonam rce(s) Supporting Document(s) BNP 32 PG/ML 0 - 125 [facility] ID Date Data Source [id number] 09/17/2020 06:33:00 PM EDT [facility] Name Value Range Interpretation Code Description Data Poonam rce(s) Supporting Document(s) Magnesium [Mass/volume] in Serum or Plasma 1.6 MG/DL 1.7 - 2.2 L [facility] ID Date Data Source [id number] 09/17/2020 10:46:00 AM EDT [facility] Name Value Range Interpretation Code Description Data Poonam rce(s) Supporting Document(s) COMPREHENSIVE METABOLIC PANEL [facility] COMPREHENSIVE METABOLIC PANEL Sodium [Moles/volume] in Serum or Plasma 141 mEq/L 134 - 153 [facility] Potassium [Moles/volume] in Serum or Plasma 4.2 mEq/L 3.6 - 5.0 [facility] Chloride [Moles/volume] in Serum or Plasma 103 mEq/L 98 - 107 [facility] Carbon dioxide, total [Moles/volume] in Serum or Plasma 28 MEQ/L 22 - 30 [facility] Glucose [Mass/volume] in Serum or Plasma 93 MG/DL 70 - 99 [facility] BUN 19 MG/DL 7 - 21 [facility] Creatinine [Mass/volume] in Serum or Plasma 0.7 MG/DL 0.7 - 1.5 [facility] BUN/CREAT 27 8 - 27 [facility] Protein [Mass/volume] in Serum or Plasma 7.6 G/DL 6.3 - 8.2 [facility] Albumin [Mass/volume] in Serum or Plasma 4.0 G/DL 3.9 - 5.0 [facility] Globulin [Mass/volume] in Serum by calculation 3.6 GM/DL 2.4 - 3.2 H [facility] A/G RATIO 1.1 0.8 - 2.0 [facility] Calcium [Mass/volume] in Serum or Plasma 10.3 MG/DL 8.4 - 10.2 H [facility] Bilirubin.total [Mass/volume] in Serum or Plasma <0.7 MG/DL 0.2 - 1.3 [facility] Alkaline phosphatase [Enzymatic activity/volume] in Serum or Plasma 184 U/L 38 - 126 H [facility] Aspartate aminotransferase [Enzymatic activity/volume] in Serum or Plasma 53 U/L 5 - 40 H [facility] Alanine aminotransferase [Enzymatic activity/volume] in Seru m or Plasma 77 U/L 7 - 56 H [facility] Anion gap 3 in Serum or Plasma 10.0 mmol/L 8.0 - 16.0 [facility] AGE 50 yrs [facility] al NON-AA GFR >60 mL/min [facility] ital AFR AMER GFR >60 mL/min [facility] Male GFR In terprentation 20-49 [...] >32 mL/min Normal ID Date Data Source [id number] 09/17/2020 10:45:00 AM EDT [facility] Name Value Range Interpretation Code Description Data Poonam rce(s) Supporting Document(s) CBC W/AUTOMATED DIFF [facility] COMPLETE BLOOD COUNT Leukocytes [#/volume] in Blood by Automated count 8.3 10^3/uL 4.2 - 1 1.0 [facility] Erythrocytes [#/volume] in Blood by Automated count 3.74 10^6/uL 4. 20 - 5.40 L [facility] Hemoglobin [Mass/volume] in Blood 11.2 g/dL 12.0 - 16.0 L [facility] Hematocrit [Volume Fraction] of Blood by Automated count 35.0 % 3 7.0 - 47.0 L [facility] Erythrocyte mean corpuscular volume [Entitic volume] by Auto mated count 93.6 fL 81.0 - 101 [facility] Erythrocyte mean corpuscular hemoglobin [Entitic mass] by Automated count 29.9 pg 27.0 - 34.0 [facility] Erythrocyte mean corpuscular hemoglobin concentration [Mass/volume] by Automated count 32.0 g/dL 31.0 - 36.0 [facility] Erythrocyte distribution width [Ratio] by Automated count 15.4 % 11.5 - 14.5 H [facility] Platelets [#/volume] in Blood by Automated count 210 10^3/uL 150 - 45 0 [facility] Platelet mean volume [Entitic volume] in Blood by Automated count 11.2 fL 7.4 - 10.4 H [facility] Neutrophils/100 leukocytes in Blood by Automated count 67.8 % 37. 0 - 80.0 [facility] Lymphocytes/100 leukocytes in Blood by Manual count 17.4 % 25.0 - 40.0 L [facility] Monocytes/100 leukocytes in Blood by Automated count 14.3 % 3.0 - 8.0 H [facility] Eosinophils/100 leukocytes in Blood by Automated count 0.0 % 0.0 - 7.0 [facility] Basophils/100 leukocytes in Blood by Automated count 0.1 % 0.0 - 2.5 [facility] %IG 0.4 % 0.0 - 0.0 H [facility] %NRBC 0.0 % 0.0 - 0.0 [facility] Neutrophils [#/volume] in Blood by Automated count 5.65 10^3/uL 2.00 - 6.90 [facility] Lymphocytes [#/volume] in Blood by Automated count 1.45 10^3/uL 0.60 - 3.40 [facility] Monocytes [#/volume] in Blood by Automated count 1.19 10^3/uL 0.00 - 0.90 H [facility] Eosinophils [#/volume] in Blood by Automated count 0.00 10^3/uL 0.00 - 0.70 [facility] Basophils [#/volume] in Blood by Automated count 0.01 10^3/uL 0.00 - 0.20 [facility] #IG 0.03 10^3/uL 0.00 - 0.10 [facility] #NRBC 0.00 10^3/uL 0.00 - 0.00 [facility] MANUAL DIFF SEE BELOW [facility] ital Segmented neutrophils/100 leukocytes in Blood by Manual count 67 % 37 - 80 [facility] %LYMPH 27 % 25 - 40 [facility] %MONO 6 % 3 - 8 [facility] al RBC MORPH SEE BELOW [facility] Anisocytosis [Presence] in Blood by Light microscopy 1+ MIHAELA L: NONE SEEN A [facility] { SICKLE CELL (NORMAL: NONE SEEN ) Platelet adequacy [Presence] in Blood by Light microscopy NORMAL NORMAL: NORMAL [facility] COMMENT: ID Date Data Source [id number] 09/17/2020 10:44:00 AM EDT [facility] Name Value Range Interpretation Code Description Data Poonam rce(s) Supporting Document(s) Lipase [Enzymatic activity/volume] in Serum or Plasma 15 U/L 13 - 60 [facility] ID Date Data Source [id number] 06/30/2020 07:52:00 AM [facility] Name Value Range Interpretation Code Description Data Poonam rce(s) Supporting Document(s) IRON (FE) 99 UG/DL Normal IRON (FE) [place] ([facility]) TOTAL IRON BINDING CAPACITY 194 UG/DL Below low nor mal TOTAL IRON BINDING CAPACITY [place] ([facility]) PERCENT SATURATION 51.0 % Above high normal PERCENT SA TURATION [place] ([facility]) ID Date Data Source [id number] 06/30/2020 07:52:00 AM [facility] Name Value Range Interpretation Code Description Data Poonam rce(s) Supporting Document(s) Reported Physicians See Note Reported Physici ans [place] ([facility]) Note: Reported Physicians:Ordering: CHRISTIANNE STOCK [id number], EVELYN MDFRCPAttending: ARNETT, TARIQCopy To: ARNETT, TARIQCopy To: [place] Amaya ID Date Data Source [id number] 06/30/2020 07:52:00 AM [facility] ([facility]) Name Value Range Interpretation Code Description Data Poonam rce(s) Supporting Document(s) Ferritin [Interpretation] in Blood 828 NG/ML Above high n ormal FERRITIN [place] ([facility]) ID Date Data Source [id number] 06/30/2020 07:52:00 AM [facility] ([facility] Name Value Range Interpretation Code Description Data Poonam rce(s) Supporting Document(s) Reported Physicians See Note Reported Physici ans [place] ([facility]) Note: Reported Physicians:Ordering: CHRISTIANNE STOCK [id number], EVELYN LOFRCPAttending: ARNETT, TARIQCopy To: ARNETT, TARIQCopy To: [place] Amyaa ID Date Data Source [id number] 06/30/2020 07:52:00 AM EST [place] ([facility]) Name Value Range Interpretation Code Description Data Poonam rce(s) Supporting Document(s) WHITE BLOOD COUNT 6.0 3/uL Normal WHITE BLOOD COUNT [place] ([facility]) RED BLOOD COUNT 3.78 6/uL Below low normal RED BLOOD COUN T [facility]) Hemoglobin [Mass/volume] in Mixed venous blood by Oximetry 10.7 g/dl Below low normal HEMOGLOBIN [place] ([facility]) Hematocrit [Pure volume fraction] of Blood by Automated count 35 .7 % Below low normal HEMATOCRIT [facility]) MEAN CORPUSCULAR VOLUME 94.4 fl Normal MEAN CORPUSC ULAR VOLUME [place] ([facility]) MEAN CORPUSCULAR HEMOGLOBIN 28.3 pg Normal MEAN COR PUSCULAR HEMOGLOBIN [facility]) RED CELL DISTRIBUTION WIDTH 15.7 % Above high no rmal RED CELL DISTRIBUTION WIDTH [facility]) MEAN CORPUSCULAR HGB CONC 30.0 g/dl Below low mihaela l MEAN CORPUSCULAR HGB CONC [place] ([facility]) PLATELET COUNT, AUTOMATED 232 3/uL Normal PLATELET C OUNT, AUTOMATED [place] ([facility]) LYMPH % 46.6 % Above high normal LYMPH % [facility] ([facility]) NEUTROPHILS % 42.4 % Normal NEUTROPHILS % [place] ([facility]) MONO % 9.2 % Above high normal MONO % [place] [facility]) EOS % 1.3 % Normal EOS % [place] ([facility]) BASO % 0.3 % Normal BASO % [place] ([facility]) IMMATURE GRANULOCYTE % 0.2 % Normal IMMATURE GRAN ULOCYTE % [place] ([facility]) NUCLEATED RED BLOOD CELL % 0.0 % Normal NUCLEATED RED BLOOD CELL % [place] ([facility]) NEUTROPHILS # 2.5 3/uL Normal NEUTROPHILS # [place] ([facility]) LYMPH # 2.8 3/uL Normal LYMPH # [place] ([facility]) MONO # 0.6 3/uL Normal MONO # [place] ([facility]) EOS # 0.1 3/uL Normal EOS # [place] ([facility]) BASO # 0.0 3/uL Normal BASO # [place] ([facility]) ID Date Data Source [id number] 06/30/2020 07:52:00 AM [facility] ([facility]) Name Value Range Interpretation Code Description Data Poonam rce(s) Supporting Document(s) Reported Phys[facility] See Note [facility] Note: Reported Physicians:Ordering: CHRISTIANNE IQUI [id number], EVELYN MDFRCPAttending: ARNETT, TARIQCopy To: MELQUIADES TARIQCopy To: [place] Amaya ID Date Data Source [id number] 04/18/2020 08:37:00 AM EST [place] ([facility]) Name Value Range Interpretation Code Description Data Poonam rce(s) Supporting Document(s) Reported Physicians See Note [facility] Note: Reported Physicians:Ordering: Rogelio Barriga JAttending: ROGELIO MANSFIELDConsulting: [place] AMAYACopten To: ROGEILO MANSFIELDCopten To: [place] Amaya ID Date Data Source [id number] 04/18/2020 08:37:00 AM [facility] ([facility]) Name Value Range Interpretation Code Description Data Poonam rce(s) Supporting Document(s) Prolactin [Mass/volume] in Serum or Plasma by 3rd IS 53.6 ng/mL Above high normal Prolactin [place] ([facility]) Note: Responsible Observer: (rfl) ID Date Data Source [id number] 04/18/2020 08:37:00 AM EST [place] ([facility]) Name Value Range Interpretation Code Description Data Poonam rce(s) Supporting Document(s) Reported Physicians See Note Reported Physici ans [place] ([facility]) Note: Reported Physicians:Ordering: Karson nunez Rogelio JAttending: DONAL CALEBConsulting: JOSE LUIS, JOCELYNCopy To: DONAL CALEBCopy To: Jose Luis, [place] ID Date Data Source [id number] 04/18/2020 08:37:00 AM EST [place] ([facility]) Name Value Range Interpretation Code Description Data Poonam rce(s) Supporting Document(s) HGB A1C 5.4 % HGB A1C [place] ([facility]) Note: {A1]{HB]Responsible Observer: (CM ) ID Date Data Source [id number] 04/18/2020 08:37:00 AM EST [place] ([facility]) Name Value Range Interpretation Code Description Data Poonam rce(s) Supporting Document(s) Reported Physicians See Note Reported [facility] ans [place] ([facility]) Note: Reported Physicians:Ordering: Karson nunez Rogelio JAttending: ROGELIO MANSFIELDConsulting: JOSE LUIS, JOCELYNCopy To: DONAL CALEBCopy To: Jose Luis [place] ID Date Data Source [id number] 04/18/2020 08:37:00 AM EST [place] ([facility]) Name Value Range Interpretation Code Description Data Poonam rce(s) Supporting Document(s) A/G RATIO 1.6 A/G RATIO [place] ([facility]) Note: Responsible Observer: (CM) AFR AMER GFR >60 mL/min AFR AMER GFR [place] ([facility]) Note: Male GFR Interprentation 20- 49 yrs [...] (CM) Egg donor age 50 yrs AGE [place] ([facility]) Note: Responsible Observer: (CM) Albumin [Mass/volume] in Blood by Bromocresol purple ( BCP) dye binding method 4.0 G/DL ALBUMIN [place] ([facility]) Note: Responsible Observer: (CM) ALKALINE PHOS 110 U/L ALKALINE PHOS [place] ([facility]) Note: Responsible Observer: (CM) Anion gap in Body fluid 4.0 mmol/L Below low normal ANION GAP [place] ([facility]) Note: Responsible Observer: (CM) BUN 16 MG/DL BUN [place] ([facility]) Note: Responsible Observer: (CM) BUN/CREAT 20 BUN/CREAT [place] ([facility]) Note: Responsible Observer: (CM) Calcium [Moles/volume] in Urine collected for unspecified durati on 10.1 MG/DL CALCIUM [place] ([facility]) Note: Responsible Observer: (CM) Chloride [Moles/volume] in Serum, Plasma or Blood 107 mEq/L CHLORIDE [place] ([facility]) Note: Responsible Observer: (CM) CO2 32 MEQ/L Above high normal CO2 [place] ([facility]) Note: Responsible Observer: (CM) COMPREHENSIVE METABOLIC PANEL See Note COMPRE HENSIVE METABOLIC PANEL [place] ([facility]) Note: COMPREHENSIVE METABOLIC PANELR esponsible Observer: (CM) Creatinine [Moles/volume] in Vitreous fluid 0.8 MG/DL CREATININE [place] ([facility]) Note: Responsible Observer: (CM) Globulin [Mass/time] in 24 hour Urine 2.5 GM/DL GLOBULIN [place] ([facility]) Note: Responsible Observer: (CM) Glucose [Mass/volume] in Urine collected for unspecified duration 9 4 MG/DL GLUCOSE [place] ([facility]) Note: Responsible Observer: (CM) NON-AA GFR >60 mL/min NON-AA GFR [place] ([facility]) Note: Responsible Observer: (CM) Potassium [Mass/volume] in Blood 4.8 mEq/L POT ASSIUM [place] ([facility]) Note: Responsible Observer: (CM) SGOT/AST 32 U/L SGOT/AST [place] ([facility]) Note: Responsible Observer: (CM) SGPT/ALT 50 U/L SGPT/ALT [place] ([facility]) Note: Responsible Observer: (CM) Sodium [Moles/volume] in Serum, Plasma or Blood 143 mEq/L SODIUM [place] ([facility]) Note: Responsible Observer: (CM) TOTAL BILI <0.7 MG/DL TOTAL BILI [place] ([facility]) Note: Responsible Observer: (CM) TOTAL PROTEIN 6.5 G/DL TOTAL PROTEIN [place] ([facility]) Note: Responsible Observer: (CM) ID Date Data Source [id number] 04/18/2020 08:37:00 AM EST [place] ([facility]) Name Value Range Interpretation Code Description Data Poonam rce(s) Supporting Document(s) Reported Physicians See Note Reported Physici ans [place] ([facility]) Note: Reported Physicians:Ordering: Rogelio Barriga JAttending: ROGELIO MANSFIELDConsulting: [place] AMAYACopten To: ROGELIO MANSFIELDCopten To: [place] Amaya ID Date Data Source [id number] 04/18/2020 08:37:00 AM EST [place] ([facility]) Name Value Range Interpretation Code Description Data Poonam rce(s) Supporting Document(s) Cholesterol [Moles/volume] in Pericardial fluid 244 MG/DL Above high normal CHOLESTEROL [place] ([facility]) Note: Responsible Observer: (CM) CVE PANEL See Note CVE PANEL [place] ([facility]) Note: LIPID PANELResponsible Observe r: (CM) HDL 80 MG/DL HDL [place] ([facility]) Note: Responsible Observer: (CM) Cholesterol in LDL [Mass/volume] in Serum or Plasma by Direct as say 141 mg/dL LDL [place] ([facility]) Note: Responsible Observer: (CM) LDL/HDL 1.76 LDL/HDL [place] ([facility]) Note: CVE RISK CHOL/HD L LDL/HDLMEN: 1/2 AVERAGE 3.43 1.00 AVERAGE 4.97 3.55 2X AVERAGE 9.55 6.25 3X AVERAGE 23.99 7.99WOMEN: 1/2 AVERAGE 3.27 1.47 AVERAGE 4.44 3.22 2X AVERAGE 7.05 5.03 3X AVERAGE 11.04 6.14Responsible Observer: (CM) RISK FACTOR 3.1 Below low normal RISK FACTOR [place] ([facility]) Note: Responsible Observer: (CM) TRIGLYCERIDES 74 MG/DL TRIGLYCERIDES [place] ([facility]) Note: Responsible Observer: (CM) ID Date Data Source [id number] 04/18/2020 08:37:00 AM EST [place] ([facility]) Name Value Range Interpretation Code Description Data Poonam rce(s) Supporting Document(s) Reported Physicians See Note Reported Physici ans [place] ([facility]) Note: Reported Physicians:Ordering: Rogelio Barriga JAttending: ROGELIO MANSFIELDConsulting: CU[place] AMAYACopten To: Mekhi MANSFIELD To: [place] Amaya ID Date Data Source [id number] 04/18/2020 08:37:00 AM EST [place] ([facility]) Name Value Range Interpretation Code Description Data Poonam rce(s) Supporting Document(s) #BASO 0.04 10\\^3/uL #BASO [place] ([facility]) Note: Responsible Observer: (CM) #EOS 0.05 10\\^3/uL #EOS [place] ([facility]) Note: Responsible Observer: (CM) #IG 0.00 10\\^3/uL #IG [place] ([facility]) Note: Responsible Observer: (CM) #LYMPH 2.75 10\\^3/uL #LYMPH [place] ([facility]) Note: Responsible Observer: (CM) #MONO 0.39 10\\^3/uL #MONO [place] ([facility]) Note: Responsible Observer: (CM) #NEUT 1.35 10\\^3/uL Below low normal #NEUT [address] ([facility]) Note: Responsible Observer: (CM) #NRBC 0.00 10\\^3/uL #NRBC [place] ([facility]) Note: Responsible Observer: (CM) %IG 0.0 % %IG [place] ([facility]) Note: Responsible Observer: (CM) %NRBC 0.0 % %NRBC VANESSA ([facility]) Note: Responsible Observer: (CM) BASO 0.9 % BASO VANESSA ([facility]) Note: Responsible Observer: (CM) CBC W/AUTOMATED DIFF See Note CBC W/AUTOMATED DIFF VANESSA ([facility]) Note: COMPLETE BLOOD COUNTResponsibl e Observer: (CM) EOS 1.1 % EOS VANESSA ([facility]) Note: Responsible Observer: (CM) Hematocrit [Pure volume fraction] of Blood by Automated count 36 .5 % Below low normal HEMATOCRIT VANESSA ([facility]) Note: Responsible Observer: (CM) Hemoglobin [Mass/volume] in Mixed venous blood by Oximetry 11.3 g/dL Below low normal HEMOGLOBIN VANESSA ([facility]) Note: Responsible Observer: (CM) LYMPH 60.0 % Above high normal LYMPH VANESSA ([facility]) Note: Responsible Observer: (CM) MANUAL DIFF NOT INDICATED MANUAL DIFF VANESSA ([facility]) Note: Responsible Observer: (CM) MCH 29.0 pg MCH VANESSA ([facility]) Note: Responsible Observer: (CM) MCHC 31.0 g/dL MCHC VANESSA ([facility]) Note: Responsible Observer: (CM) MCV 93.8 fL MCV VANESSA ([facility]) Note: Responsible Observer: (CM) MONO 8.5 % Above high normal MONO VANESSA ([facility]) Note: Responsible Observer: (CM) MPV 10.5 fL Above high normal MPV VANESSA ([facility]) Note: Responsible Observer: (CM) NEUT 29.5 % Below low normal NEUT VANESSA ([facility]) Note: Responsible Observer: (CM) Platelets [#/area] in Blood by Microscopy high power field 246 10\\^ 3/uL PLATELETS [place] ([facility]) Note: Responsible Observer: (CM) RBC 3.89 10\\^6/uL Below low normal RBC [place] ([facility]) Note: Responsible Observer: (CM) RBC MORPH NOT INDICATED RBC MORPH VANESSA ([facility]) Note: Responsible Observer: (CM) RDW 13.8 % RDW VANESSA ([facility]) Note: Responsible Observer: (CM) WBC 4.6 10\\^3/uL WBC [place] ([facility]) Note: Responsible Observer: (CM) ID Date Data Source [id number] 04/18/2020 08:37:00 AM EST MEDENT ([facility]) Name Value Range Interpretation Code Description Data Poonam rce(s) Supporting Document(s) Prolactin [Mass/volume] in Serum or Plasma 53.6 ng/mL 4.8-2 3.3 Above high normal MEDENT ([facility]) Is patient fasting? Y ID Date Data Source [id number] 04/18/2020 08:37:00 AM EST MEDENT ([facility]) Name Value Range Interpretation Code Description Data Poonam rce(s) Supporting Document(s) Cve Panel Laboratory test result MEDENT ([facility]) Is patient fasting? Y Triglycerides 74 mg/dL 35-160 [facility] ([facility]) Is patient fasting? Y Cholesterol 244 mg/dL 131-200 Above high normal MEDENT ([facility]) Is patient fasting? Y HDL 80 mg/dL 29-86 [facility] ([facility]) Is patient fasting? Y LDL/HDL 1.76 1.47-3.22 [facility] ([facility]) Is patient fasting? Y LDL 141 mg/dL 65-175 [facility] ([facility]) Is patient fasting? Y Risk Factor 3.1 3.2-4.4 Below low normal MEDENT ([facility]) Is patient fasting? Y ID Date Data Source [id number] 04/18/2020 08:37:00 AM EST MED[facility] ([facility]) Name Value Range Interpretation Code Description Data Poonam rce(s) Supporting Document(s) Hemoglobin A1c/Hemoglobin.total in Blood 5.4 % 4.4-6.1 MED[facility] ([facility]) Is patient fasting? Y ID Date Data Source [id number] 04/18/2020 08:37:00 AM EST MEDENT ([facility]) Name Value Range Interpretation Code Description Data Poonam rce(s) Supporting Document(s) Comprehensive Metabo Laboratory test result MEDENT ([facility]) Is patient fasting? Y Sodium 143 meq/L 134-153 [facility] ([facility]) Is patient fasting? Y Chloride 107 meq/L 98-107 [facility] ([facility]) Is patient fasting? Y Potassium 4.8 meq/L 3.6-5.0 MED[facility] ([facility]) Is patient fasting? Y Co2 32 meq/L 22-30 Above high normal MEDENT ([facility]) Is patient fasting? Y BUN 16 mg/dL 7-21 [facility] ([facility]) Is patient fasting? Y Glucose 94 mg/dL 65-110 [facility] ([facility]) Is patient fasting? Y BUN/Creat 20 8-27 [facility] ([facility]) Is patient fasting? Y Total Protein 6.5 g/dL 6.3-8.2 MED[facility] ([facility]) Is patient fasting? Y Creatinine 0.8 mg/dL 0.7-1.5 MED[facility] ([facility]) Is patient fasting? Y Albumin 4.0 g/dL 3.9-5.0 MED[facility] ([facility]) Is patient fasting? Y Globulin 2.5 GM/DL 2.4-3.2 [facility] ([facility]) Is patient fasting? Y A/G Ratio 1.6 0.8-2.0 MED[facility] ([facility]) Is patient fasting? Y Total Bili Laboratory test result 0.2-1.3 ME DENT ([facility]) Is patient fasting? Y Calcium 10.1 mg/dL 8.4-10.2 MED[facility] ([facility]) Is patient fasting? Y Alkaline Phos 110 U/L 38-126 [facility] ([facility]) Is patient fasting? Y SGPT/Alt 50 U/L 7-56 [facility] ([facility]) Is patient fasting? Y Sgot/Ast 32 U/L 5-40 [facility] ([facility]) Is patient fasting? Y Non-Aa GFR Laboratory test result MED[facility] ([facility]) Is patient fasting? Y Anion Gap 4.0 mmol/L 8.0-16.0 Below low normal [facility] ( [facility]) Is patient fasting? Y Age 50 yrs MED[facility] ([facility]) Is patient fasting? Y Afr Amer GFR Laboratory test result MED[facility] ([facility]) Is patient fasting? Y ID Date Data Source [id number] 04/18/2020 08:37:00 AM EST MED[facility] ([facility]) Name Value Range Interpretation Code Description Data Poonam rce(s) Supporting Document(s) CBC W/Automated Diff Laboratory test result MEDENT ([facility]) Is patient fasting? Y WBC 4.6 10^3/uL 4.2-11.0 [facility] ([facility]) Is patient fasting? Y RBC 3.89 10^6/uL 4.20-5.40 Below low normal MED[facility] ([facility]) Is patient fasting? Y Hemoglobin 11.3 g/dL 12.0-16.0 Below low normal MED[facility] ( [facility]) Is patient fasting? Y MCV 93.8 fL 81.0-101 [facility] ([facility]) Is patient fasting? Y Hematocrit 36.5 % 37.0-47.0 Below low normal MED[facility] ( [facility]) Is patient fasting? Y MCH 29.0 pg 27.0-34.0 [facility] ([facility]) Is patient fasting? Y RDW 13.8 % 11.5-14.5 [facility] ([facility]) Is patient fasting? Y MCHC 31.0 g/dL 31.0-36.0 [facility] ([facility]) Is patient fasting? Y Neut 29.5 % 37.0-80.0 Below low normal MED[facility] ( [facility]) Is patient fasting? Y MPV 10.5 fL 7.4-10.4 Above high normal [facility] ([facility]) Is patient fasting? Y Platelets 246 10^3/uL 150-450 [facility] ([facility]) Is patient fasting? Y Eos 1.1 % 0.0-7.0 [facility] ([facility]) Is patient fasting? Y Lymph 60.0 % 25.0-40.0 Above high normal [facility] ([facility]) Is patient fasting? Y [place] 8.5 % 3.0-8.0 Above high normal [facility] ([facility]) Is patient fasting? Y Baso 0.9 % 0.0-2.5 [facility] ([facility]) Is patient fasting? Y %Ig 0.0 % 0.0-0.0 [facility] ([facility]) Is patient fasting? Y %NRBC 0.0 % 0.0-0.0 [facility] ([facility]) Is patient fasting? Y #Lymph 2.75 10^3/uL 0.60-3.40 [facility] ([facility]) Is patient fasting? Y #Neut 1.35 10^3/uL 2.00-6.90 Below low normal [facility] ([facility]) Is patient fasting? Y #Eos 0.05 10^3/uL 0.00-0.70 [facility] ([facility]) Is patient fasting? Y #Baso 0.04 10^3/uL 0.00-0.20 [facility] ([facility]) Is patient fasting? Y #[place] 0.39 10^3/uL 0.00-0.90 [facility] ([facility]) Is patient fasting? Y #Ig 0.00 10^3/uL 0.00-0.10 [facility] ([facility]) Is patient fasting? Y #NRBC 0.00 10^3/uL 0.00-0.00 [facility] ([facility]) Is patient fasting? Y Manual Diff Laboratory test result M EDENT ([facility]) Is patient fasting? Y RBC Morph Laboratory test result MEDENT ([facility]) Is patient fasting? Y ID Date Data Source [id number] 04/20/2020 10:24:00 AM EST [facility] Name Value Range Interpretation Code Description Data Poonam rce(s) Supporting Document(s) Prolactin [Mass/volume] in Serum or Plasma 53.6 ng/mL 4.8-23.3 H [facility] ID Date Data Source [id number] 04/18/2020 09:55:00 AM EST [facility] Name Value Range Interpretation Code Description Data Poonam rce(s) Supporting Document(s) CVE PANEL [facility] al LIPID PANEL Cholesterol [Mass/volume] in Serum or Plasma 244 MG/DL 131 - 200 H [facility] Deprecated Triglyceride [Mass/volume] in Serum or Plasma 74 MG/DL 3 5 - 160 [facility] HDL 80 MG/DL 29 - 86 [facility] Cholesterol in LDL [Mass/volume] in Serum or Plasma by Direc t assay 141 mg/dL 65 - 175 [facility] Cholesterol.total/Cholesterol in HDL [Mass Ratio] in Serum o r Plasma 3.1 3.2 - 4.4 L [facility] LDL/HDL 1.76 1.47 - 3.22 [facility] ital CVE RISK CHOL/HDL LDL/HDLMEN: 1/2 AVERAGE 3.43 1.00 AVERAGE 4.97 3.55 2X AVERAGE 9.55 6.25 3X AVERAGE 23.99 7.99WOMEN: 1/2 AVERAGE 3.27 1.47 AVERAGE 4.44 3.22 2X AVERAGE 7.05 5.03 3X AVERAGE 11.04 6.14 ID Date Data Source [id number] 04/18/2020 09:55:00 AM [facility] Name Value Range Interpretation Code Description Data Poonam rce(s) Supporting Document(s) COMPREHENSIVE METABOLIC PANEL [facility] COMPREHENSIVE METABOLIC PANEL Sodium [Moles/volume] in Serum or Plasma 143 mEq/L 134 - 153 [facility] Potassium [Moles/volume] in Serum or Plasma 4.8 mEq/L 3.6 - 5.0 [facility] Chloride [Moles/volume] in Serum or Plasma 107 mEq/L 98 - 107 [facility] Carbon dioxide, total [Moles/volume] in Serum or Plasma 32 MEQ/L 22 - 30 H [facility] Glucose [Mass/volume] in Serum or Plasma 94 MG/DL 65 - 110 [facility] BUN 16 MG/DL 7 - 21 [facility] al Creatinine [Mass/volume] in Serum or Plasma 0.8 MG/DL 0.7 - 1.5 [facility] BUN/CREAT 20 8 - 27 [facility] Protein [Mass/volume] in Serum or Plasma 6.5 G/DL 6.3 - 8.2 [facility] Albumin [Mass/volume] in Serum or Plasma 4.0 G/DL 3.9 - 5.0 [facility] Globulin [Mass/volume] in Serum by calculation 2.5 GM/DL 2.4 - 3.2 [facility] A/G RATIO 1.6 0.8 - 2.0 [facility] Calcium [Mass/volume] in Serum or Plasma 10.1 MG/DL 8.4 - 10.2 [facility] Bilirubin.total [Mass/volume] in Serum or Plasma <0.7 MG/DL 0.2 - 1.3 [facility] Alkaline phosphatase [Enzymatic activity/volume] in Serum or Plasma 110 U/L 38 - 126 [facility] Aspartate aminotransferase [Enzymatic activity/volume] in Serum or Plasma 32 U/L 5 - 40 [facility] Alanine aminotransferase [Enzymatic activity/volume] in Seru m or Plasma 50 U/L 7 - 56 [facility] Anion gap 3 in Serum or Plasma 4.0 mmol/L 8.0 - 16.0 L [facility] AGE 50 yrs [facility] NON-AA GFR >60 mL/min [facility] ital AFR AMER GFR >60 mL/min [facility] Male GFR In terprentation 20-49 [...] >32 mL/min Normal ID Date Data Source [id number] 04/18/2020 09:24:00 AM EST [facility] Name Value Range Interpretation Code Description Data Poonam e(s) Supporting Document(s) Hemoglobin A1c/Hemoglobin.total in Blood 5.4 % 4.4 - 6.1 [facility] {A1]{HB] ID Date Data Source [id number] 04/18/2020 08:54:00 AM [facility] Name Value Range Interpretation Code Description Data [facility](s) Supporting Document(s) CBC W/AUTOMATED DIFF [facility] COMPLETE BLOOD COUNT Leukocytes [#/volume] in Blood by Automated count 4.6 10^3/uL 4.2 - 1 1.0 [facility] Erythrocytes [#/volume] in Blood by Automated count 3.89 10^6/uL 4. 20 - 5.40 L [facility] Hemoglobin [Mass/volume] in Blood 11.3 g/dL 12.0 - 16.0 L [facility] Hematocrit [Volume Fraction] of Blood by Automated count 36.5 % 3 7.0 - 47.0 L [facility] Erythrocyte mean corpuscular volume [Entitic volume] by Auto mated count 93.8 fL 81.0 - 101 [facility] Erythrocyte mean corpuscular hemoglobin [Entitic mass] by Automated count 29.0 pg 27.0 - 34.0 [facility] Erythrocyte mean corpuscular hemoglobin concentration [Mass/volume] by Automated count 31.0 g/dL 31.0 - 36.0 [facility] Erythrocyte distribution width [Ratio] by Automated count 13.8 % 11.5 - 14.5 [facility] Platelets [#/volume] in Blood by Automated count 246 10^3/uL 150 - 45 0 [facility] Platelet mean volume [Entitic volume] in Blood by Automated count 10.5 fL 7.4 - 10.4 H [facility] Neutrophils/100 leukocytes in Blood by Automated count 29.5 % 37. 0 - 80.0 L [facility] Lymphocytes/100 leukocytes in Blood by Manual count 60.0 % 25.0 - 40.0 H [facility] Monocytes/100 leukocytes in Blood by Automated count 8.5 % 3.0 - 8.0 H [facility] Eosinophils/100 leukocytes in Blood by Automated count 1.1 % 0.0 - 7.0 [facility] Basophils/100 leukocytes in Blood by Automated count 0.9 % 0.0 - 2.5 [facility] %IG 0.0 % 0.0 - 0.0 [facility] %NRBC 0.0 % 0.0 - 0.0 [facility] Neut[facility]ils [#/volume] in Blood by Automated count 1.35 10^3/uL 2.00 - 6.90 L [facility] Lymphocytes [#/volume] in Blood by Automated count 2.75 10^3/uL 0.60 - 3.40 [facility] Monocytes [#/volume] in Blood by Automated count 0.39 10^3/uL 0.00 - 0.90 [facility] Eosinophils [#/volume] in Blood by Automated count 0.05 10^3/uL 0.00 - 0.70 [facility] Basophils [#/volume] in Blood by Automated count 0.04 10^3/uL 0.00 - 0.20 [facility] #IG 0.00 10^3/uL 0.00 - 0.10 [facility] #NRBC 0.00 10^3/uL 0.00 - 0.00 [facility] MANUAL DIFF NOT INDICATED [facility] RBC MORPH NOT INDICATED [facility] ID Date Data Source [id number] 02/25/2020 07:52:00 AM EDBrook MENDEZ ([facility]) Name Value Range Interpretation Code Description Data Poonam rce(s) Supporting Document(s) Reported Physicians See Note Reported Physici ans VANESSA ([facility]) Note: Reported Physicians:Ordering: Cuba Gonzalez AAttending: CUBA AMAYAConsulting: CUBA AMAYACopy To: Cuba Amaya ID Date Data Source [id number] 02/25/2020 07:52:00 AM EDT [place] ([facility]) Name Value Range Interpretation Code Description Data Poonam rce(s) Supporting Document(s) LH 0.6 mIU/mL LH [place] ([facility]) Note: Adult Female: Follicular phase 2.4 - 12.6 Ovulation phase 14.0 - 95.6 Luteal phase 1.0 - 11.4 Postmenopausal 7.7 - 58.5Responsible Observer: (rfl) ID Date Data Source [id number] 02/25/2020 07:52:00 AM EDT [place] ([facility]) Name Value Range Interpretation Code Description Data Poonam rce(s) Supporting Document(s) Reported Physicians See Note Reported Physici ans [place] ([facility]) Note: Reported Physicians:Ordering: Cuba Gonzalez AAttending: CUBA AMAYAConsulting: CUBA AMAYACopten To: Cuba Amaya ID Date Data Source [id number] 02/25/2020 07:52:00 AM EDT [place] ([facility]) Name Value Range Interpretation Code Description Data Poonam rce(s) Supporting Document(s) FSH 0.6 mIU/mL FSH [place] ([facility]) Note: Adult Female: Follicular phase 3.5 - 12.5 Ovulation phase 4.7 - 21.5 Luteal phase 1.7 - 7.7 Postmenopausal 25.8 - 134.8Responsible Observer: (rfl) ID Date Data Source [id number] 02/27/2020 02:00:00 PM [facility] Name Value Range Interpretation Code Description Data Poonam rce(s) Supporting Document(s) Follitropin [Units/volume] in Serum or Plasma 0.6 mIU/mL [facility] Adult Female: Follicular phase 3.5 - 12.5 Ovulation phase 4.7 - 21.5 Luteal phase 1.7 - 7.7 Postmenopausal 25.8 - 134.8 ID Date Data Source [id number] 02/27/2020 02:00:00 PM [facility] Name Value Range Interpretation Code Description Data Poonam rce(s) Supporting Document(s) Lutropin [Units/volume] in Serum or Plasma 0.6 mIU/mL [facility] Adult Female: Follicular phase 2.4 - 12.6 Ovulation phase 14.0 - 95.6 Luteal phase 1.0 - 11.4 Postmenopausal 7.7 - 58.5 ID Date Data Source [id number] 12/17/2019 08:07:00 AM EDT [facility] Name Value Range Interpretation Code Description Data Poonam rce(s) Supporting Document(s) Haptoglobin 104 mg/dL 42-296 [facility] ID Date Data Source [id number] 12/17/2019 02:06:00 PM EDT [facility] Name Value Range Interpretation Code Description Data Poonam rce(s) Supporting Document(s) LLUVIA Direct Negative Negative [facility] ID Date Data Source [id number] 12/19/2019 04:06:00 PM EDT [facility] Name Value [...] adult hemoglobin present. ID Date Data Source [id number] 12/22/2019 02:06:00 PM EDT [facility] Name Value [...] J Prev Med 16:134-140.Jennifer Martin (2002). Lancet 360(7668):1673- 33.Diana Jose et al. (2002). Blood Cells, Molecules. andDiseases. 29(3):418- 432.Candy Lopez et al. (2003). Zaina Med. 5(1):1-8.Griselda MCKENZIE et al. (2003). Zaina Med. 5(4):304-10.This test was developed and its performance characteristics determinedby [facility]. It has not been cleared or approved by the Food and DrugAdministration. Genetic counselors are available for health care providers to discussresults at [phone]. bS Shelton, PhD, Yee Aguilera, PhD, Sachi Barragan MSylvesterSSylvester, PhD, Kanwal Schaefer, PhD, Carroll Coulter, PhD, Primitivo Pereyra, PhD, [facility] ID Date Data Source [id number] 12/29/2019 07:05:00 PM EDT [facility] Name Value [...] .Methodology:DNA analysis of the alpha-globin locus (HBA1/HBA2, [id number] / [id number], 16pter- 16p13.3) is performed by multiplexligation-dependent probe [...] inthis manner are alpha3.7, alpha4.2, Southeast type(--SEA), Lao type (--STEWART), [place] type(--SURINAMESE),Mediterranean (--MED) and alpha (20.5). The analysis doesnot detect other point mutations within this region, nordoes it detect mutations of the beta-globin gene, thatunderlie beta-thalassemia or sickle cell disease. Resultsof this test are for investigational and research purposesonly per the assay's fitting supervisor. The performancecharacteristics of this assay have not been established bythe fitting supervisor. The result should not be used fortreatment or for diagnostic purposes without confirmationof the diagnosis by another medically established diagnosticproduct or procedure. The performance characteristics weredetermined by [facility]. The presence of a rare mutationcannot be [...] [place] red blood cells. 1976. Blood 89:7929-[address]73.4. [address] et al. Hemoglobin H-[place] in [place]: an alpha thalassemia with frequent complications . 2008. Am J Hematology 84:759-761.5. Gina N et al. Hematological characteristics and effective screening for compound heterozygosity for Hb [place] and deletional alpha-+-thalassemia. 2011. Am J Hematology 86:615-617.6. Home R and Kimani A. Alpha-Thalassemia. 2011. GeneReviews. [email or web address].org7. [facility] Comprehensive Thalassemia Center [email or web address]://[email or web address]/alpha_thal_[email or web address].html as cited on 05/26/2004.8. [place] COREA, Cristian H, et al. Detection of alpha-thalassemia in [place] by using multiplex liga tion-dependent probe amplification. 2008. Hemoglobin 32:561-571.9. [facility] MLPA P140-B2 HBA kit RUO package insert version 16.Results Released By: Hafsa Schaefer, Ph.D., DirectorReport Released By: Kendra Taveras, MS, [facility], GeneticCounselorResults for this test are for research purposes only by the assay'smanufacturer. The performance characteristics of this product havenot been established. Results should not be used as a diagnosticprocedure without confirmation of the diagnosis by another medicallyestablished diagnostic product or procedure. PDF . [facility] ID Date Data Source [id number] 12/22/2019 01:05:00 PM EDT [facility] Name Value Range Interpretation Code Description Data Poonam rce(s) Supporting Document(s) Informed Consent Needed [facility] TEST ORDERED: [id number] Fax back to [phone]. Many states require laboratoriesto have documentation that [...] this patient and sign below so that [facility] release the results for this patient. [] I authorize and confirm patient consent for the above mentionedgenetic test(s). [] I have provided appropriate informed consent for the above mentioned test(s) and documentation of this consent is maintained in the patient record. Health care provider signature Date Printed name Fax back to [facility] at [phone] [facility] Genetic Services Procedure Social History Code Duration Value Status Description Data Source(s ) Smoking 09/18/2020 11:53:00 PM EDT Not Known completed Not Known [facility] Smoking 08/30/2020 12:00:00 AM EDT Never Smoked A Pipe complet ed Never Smoked A Pipe [facility] ([facility]) Vital Signs ID Date Data Source UNK Name Value Range Interpretation Code Description Data Source(s) Body weight 65.375 kg 65.375 kg [facility] ([facility]) Systolic blood pressure 98 mm[Hg] 98 mm[Hg] M EDENT ([facility]) Body height 64 [in_i] 64 [in_i] [facility] ([facility]) 5'4" Diastolic blood pressure 62 mm[Hg] 62 mm[Hg] [facility] ([facility]) Heart rate 100 /min 100 /min [facility] ([facility]) Respiratory rate 16 /min 16 /min [facility] ( [facility]) Oxygen saturation in Arterial blood by Pulse oximetry 97 % 97 % [facility] ([facility]) Body weight 144.12 [lb_av] 144.12 [lb_av] MEDEN T ([facility]) Body mass index (BMI) [Ratio] 24.7 kg/m2 24.7 k g/m2 [facility] ([facility]) Body surface area Derived from formula 1.70 m2 1.70 m2 [facility] ([facility]) Systolic blood pressure 118 mm[Hg] Normal (applies t o non-numeric results) 118 mm[Hg] [facility] Diastolic blood pressure 67 mm[Hg] Normal (applies to non-numeric results) 67 mm[Hg] [facility] Heart rate 130 min Normal (applies to non-numeric resul ts) 130 min [facility] Respiratory rate 19 min Normal (applies to non-numeric results) 19 min [facility] Body temperature 36.9 frida Normal (applies to non-numeric results) 36.9 frida [facility] Deprecated Oxygen saturation in Capillary blood by Oximetry 98 % Normal (applies to non-numeric results) 98 % [facility] Body height 176.784 cm Normal (applies to non-numeric resu lts) 176.784 cm [facility] Body weight Measured 68.2 kg Normal (applies to non-num addis results) 68.2 kg [facility] Body mass index (BMI) [Ratio] 21.57 kg/m2 No rmal (applies to non-numeric results) 21.57 kg/m2 [facility] Inhaled oxygen flow rate 0 L/min 0 L/min [place] ([facility]) Systolic blood pressure 122 mm[Hg] 122 mm[Hg] [facility] ([facility]) Diastolic blood pressure 80 mm[Hg] 80 mm[Hg] [place] ([facility]) Heart rate 103 /min 103 /min [place] ([facility]) Body temperature 95.6 [degF] 95.6 [degF] [place]) Body height 65.5 [in_i] 65.5 [in_i] [place] ([facility]) Inhaled oxygen concentration 21 % 21 % [place] ([facility]) Oxygen saturation in Arterial blood by Pulse oximetry 95 % 95 % [place] ([facility]) Systolic blood pressure 90 mm[Hg] 90 mm[Hg] [facility] ([facility]) UNABLE TO GET 02 SAT TO REGISTER, NAIL P OLISH. UNABLE TO WEIGH PT. D/T UNSTEADY BALANCE. PSA Heart rate 96 /min 96 /min [place] ([facility]) UNABLE TO GET 02 SAT TO REGISTER, NAIL P OLISH. UNABLE TO WEIGH PT. D/T UNSTEADY BALANCE. PSA Respiratory rate 18 /min 18 /min [place] ([facility]) UNABLE TO GET 02 SAT TO REGISTER, NAIL P OLISH. UNABLE TO WEIGH PT. D/T UNSTEADY BALANCE. PSA Body temperature 93.5 [degF] 93.5 [degF] [place]AR[facility] BRADY ([facility]) UNABLE TO GET 02 SAT TO REGISTER, NAIL P OLISH. UNABLE TO WEIGH PT. D/T UNSTEADY BALANCE. PSA Body height 65.5 [in_i] 65.5 [in_i] [place] ([facility]) UNABLE TO GET 02 SAT TO REGISTER, NAIL P OLISH. UNABLE TO WEIGH PT. D/T UNSTEADY BALANCE. PSA Diastolic blood pressure 70 mm[Hg] 70 mm[Hg] [place] ([facility]) UNABLE TO GET 02 SAT TO REGISTER, NAIL P OLISH. UNABLE TO WEIGH PT. D/T UNSTEADY BALANCE. PSA Systolic blood pressure 110 mm[Hg] 110 mm[Hg] [facility] ([facility]) Diastolic blood pressure 60 mm[Hg] 60 mm[Hg] [place] ([facility]) Heart rate 76 /min 76 /min [place] ([facility]) Respiratory rate 20 /min 20 /min [place] ([facility]) Body temperature 96.7 [degF] 96.7 [degF] [place] ([facility]) Body height 65.5 [in_i] 65.5 [in_i] [place] ([facility]) Body weight 158 [lb_av] 158 [lb_av] [place] ([facility]) Body mass index (BMI) [Ratio] 25.9 kg/m2 25.9 k g/m2 [place] ([facility]) Body surface area Derived from formula 1.80 m2 1.80 m2 [place] ([facility]) Oxygen saturation in Arterial blood by Pulse oximetry 98 % 98 % [place] ([facility]) Body height 65.5 [in_i] 65.5 [in_i] [place] ([facility]) Body weight 155 [lb_av] 155 [lb_av] [place] ([facility]) Body mass index (BMI) [Ratio] 25.4 kg/m2 25.4 k g/m2 [place] ([facility]) Body surface area Derived from formula 1.78 m2 1.78 m2 [place] ([facility]) Oxygen saturation in Arterial blood by Pulse oximetry 98 % 98 % [place] ([facility]) Systolic blood pressure 110 mm[Hg] 110 mm[Hg] [facility] ([facility]) Heart rate 100 /min 100 /min [place] ([facility]) Respiratory rate 20 /min 20 /min [place] ([facility]) Body temperature 96.3 [degF] 96.3 [degF] [place] ([facility]) Diastolic blood pressure 60 mm[Hg] 60 mm[Hg] [place] ([facility]) Diastolic blood pressure 68 mm[Hg] 68 mm[Hg] [place] ([facility]) Systolic blood pressure 118 mm[Hg] 118 mm[Hg] [facility] Heart rate 68 /min 68 /min [place] ([facility]) Respiratory rate 24 /min 24 /min [place] ([facility]) Body temperature 97.8 [degF] 97.8 [degF] [facility] ([facility]) Body height 65.5 [in_i] 65.5 [in_i] [place] ([facility]) Body weight 158 [lb_av] 158 [lb_av] [place] ([facility]) Body mass index (BMI) [Ratio] 25.9 kg/m2 25.9 k g/m2 [place] ([facility]) Body surface area Derived from formula 1.80 m2 1.80 m2 [place] ([facility]) Oxygen saturation in Arterial blood by Pulse oximetry 98 % 98 % [place] ([facility]) Inhaled oxygen flow rate 0 L/min 0 L/min [place] ([facility]) Inhaled oxygen concentration 21 % 21 % [place] ([facility]) ID Date Data Source [id number] 09/23/2020 01:57:04 PM EDT [facility] Name Value Range Interpretation Code Description Data Source(s) WEIGHT RECORDED 159.20 pounds 159.20 pounds [facility] Height 65 Inches 065 Inches [facility] Patient Treatment Plan of Care Planned Activity Planned Date Details Description Data Source (s) Docusate Sodium 100 MG Oral Capsule [Colace] 09/09/2020 12:00:00 AM EDT [place] ([facility]) Multivitamin Oral Tablet 08/07/2020 12:00:00 AM EDT [place] ([facility]) Docusate Sodium 100 MG Oral Capsule [Colace] 08/04/2020 12:00:00 AM EDT [facility]) Senna Laxative 8.6 MG Oral Tablet 08/04/2020 12:00:00 AM EDT [place] ([facility]) Folic Acid 1 MG Oral Tablet 08/04/2020 12:00:00 AM EDT [place] ([facility]) POLYETHYLENE GLYCOL 3350 142 MG/ML Oral Solution [Ne lax] 08/04/2020 12:00:00 AM EDT [place] ([facility]) Karolina Allergy 180 MG Oral Tablet 08/04/2020 12:00:00 AM EDT [place] ([facility]) Baclofen 20 MG Oral Tablet 08/04/2020 12:00:00 AM EDT [place] ([facility]) Lactulose 667 MG/ML Oral Solution [Constulose] 08/04/2020 12:00:00 AM EDT [place] ([facility]) carbamide peroxide 65 MG/ML Otic Solution [Debrox] 08/04/2020 12 :00:00 AM EDT [place] ([facility]) calcium polycarbophil 625 MG Oral Tablet [FiberCon] 08/05/19 12:00:00 AM EDT [place] ([facility]) Sodium Phosphate, Dibasic 35.5 MG/ML / S odium Phosphate, Monobasic 96.4 MG/ML Enema 08/04/2020 12:00:00 AM EDT [facility] ([facility]) Kariva 0.15-0.02/0.01 MG (17/09) Oral Tablet 08/04/2020 12:00:00 AM EDT [place] ([facility]) Levothyroxine Sodium 0.112 MG Oral Tablet 08/04/2020 12:00:00 AM ED T [place] ([facility]) linaclotide 0.145 MG Oral Capsule [Linzess] 08/04/2020 12:00:00 AM EDT [place] ([facility]) montelukast 10 MG Oral Tablet 08/04/2020 12:00:00 AM EDT [facility]) Omeprazole 40 MG Delayed Release Oral Capsule 08/04/2020 12:00:00 A M EDT [place] ([facility]) traMADol HCl ER (Biphasic) 300 MG Oral Tablet Extended Release 24 Hour 07/05/2020 12:[facility] traMADol HCl ER (Biphasic) 300 MG Oral Tablet Extended Release 24 Hour 07/05/2020 12:00:00 AM [facility] ([facility]) 24 HR tramadol hydrochloride 300 MG Extended Release O ral Capsule 06/28/2020 12:00:[address] [facility]) Kariva 0.15-0.02/0.01 MG (21/5) Oral Tablet 04/15/2020 12:00:00 AM [facility]) Omeprazole 40 MG Delayed Release Oral Capsule 04/15/2020 12:00:00 A M [facility]) Baclofen 20 MG Oral Tablet 04/15/2020 12:00:00 AM [facility]) Docusate Sodium 100 MG Oral Capsule [Colace] 04/15/2020 12:00:00 AM [facility]) Sodium Phosphate, Dibasic 35.5 MG/ML / S odium Phosphate, Monobasic 96.4 MG/ML Enema 04/15/2020 12:00:00 AM [facility]) calcium polycarbophil 625 MG Oral Tablet [FiberCon] 04/15/20 12:00:00 AM [facility]) carbamide peroxide 65 MG/ML Otic Solution [Debrox] 04/15/2020 12 :00:00 AM [facility]) Lactulose 667 MG/ML Oral Solution [Constulose] 04/15/2020 12:00:00 AM [facility]) Karolina Allergy 180 MG Oral Tablet 04/15/2020 12:00:00 AM [facility]) montelukast 10 MG Oral Tablet 04/15/2020 12:00:00 AM [facility]) linaclotide 0.145 MG Oral Capsule [Linzess] 04/15/2020 12:00:00 AM [facility]) Levothyroxine Sodium 0.112 MG Oral Tablet 04/15/2020 [facility] Folic Acid 1 MG Oral Tablet 04/15/2020 12:00:00 AM [facility] ([facility]) 24 HR tramadol hydrochloride 300 MG Extended Release O ral Capsule 03/30/2020 12:00:00 AM [facility] ([facility]) Levothyroxine Sodium 0.112 MG Oral Tablet 03/17/2020 12:00:00 AM [facility] ([facility]) Kariva 0.15-0.02/0.01 MG (21/5) Oral Tablet 01/27/2020 12:00:00 AM EDT [place] ([facility]) 24 HR tramadol hydrochloride 300 MG Extended Release O ral Capsule 12/31/2019 12:00:00 AM EDT [place] ([facility]) Sodium Phosphate, Dibasic 35.5 MG/ML / S odium Phosphate, Monobasic 96.4 MG/ML Enema 12/31/2019 12:00:00 AM EDT [facility] ([facility]) Multi Vitamin Daily Oral Tablet 12/23/2019 12:00:00 AM EDT [place] ([facility]) Baclofen 20 MG Oral Tablet 12/23/2019 12:00:00 AM EDT [place] ([facility]) Docusate Sodium 100 MG Oral Capsule [Colace] 12/23/2019 12:00:00 AM EDT [place] ([facility]) Karolina Allergy 180 MG Oral Tablet 12/23/2019 12:00:00 AM EDT [place] ([facility]) calcium polycarbophil 625 MG Oral Tablet [FiberCon] 12/23/19 20 12:00:00 AM EDT [place] ([facility]) Lactulose 667 MG/ML Oral Solution [Constulose] 12/23/2019 12:00:00 AM EDT [place] ([facility]) Folic Acid 1 MG Oral Tablet 12/23/2019 12:00:00 AM EDT [place] ([facility]) linaclotide 0.145 MG Oral Capsule [Linzess] 12/23/2019 12:00:00 AM EDT [facility]) montelukast 10 MG Oral Tablet 12/23/2019 12:00:00 AM EDT [place] ([facility]) Levothyroxine Sodium 0.112 MG Oral Tablet [Synthroid] 12/23/2019 12:00:00 AM EDT [facility]) Omeprazole 40 MG Delayed Release Oral Capsule 12/23/2019 12:00:00 A M EDT [facility]) carbamide peroxide 65 MG/ML Otic Solution [Debrox] 11/10/2019 12 :00:00 AM EDT [facility]) Omeprazole 40 MG Delayed Release Oral Capsule 11/03/2019 12:00:00 A M T [facility]) 24 HR tramadol hydrochloride 300 MG Extended Release O ral Capsule 10/07/2019 12:00:00 AM EDT [facility]) Karolina Allergy 180 MG Oral Tablet 10/06/2019 12:00:00 AM EDT [facility]) Baclofen 20 MG Oral Tablet 10/06/2019 12:00:00 AM EDT [facility]) Docusate Sodium 100 MG Oral Capsule [Colace] 10/06/2019 12:00:00 AM EDT [facility]) Lactulose 667 MG/ML Oral Solution [Constulose] 10/06/2019 12:00:00 AM EDT [facility]) calcium polycarbophil 625 MG Oral Tablet [FiberCon] 10/06/19 12:00:00 AM EDT [facility]) Folic Acid 1 MG Oral Tablet 10/06/2019 12:00:00 AM EDT [facility]) linaclotide 0.145 MG Oral Capsule [Linzess] 10/06/2019 12:00:00 AM EDT [facility]) montelukast 10 MG Oral Tablet 10/06/2019 12:00:00 AM EDT [facility]) Levothyroxine Sodium 0.112 MG Oral Tablet [Synthroid] 10/06/2019 12:00:00 AM EDT [place] ([facility]) Multi Vitamin Daily Oral Tablet 10/06/2019 12:00:00 AM [facility]NE[facility] ([facility]) Sodium Phosphate, Dibasic 35.5 MG/ML / S odium Phosphate, Monobasic 96.4 MG/ML Enema 08/27/2019 12:00:00 AM ANTON[facility] FARAH ([facility])
[2021-02-13] VITALS (63 sets, daily range): BP systolic 72–144; BP diastolic 41–88; O2SAT 94–95
[2021-02-13] MEDS ORDERED: REMDESIVIR 200 MG in NS 250 ML IV ONE ×2
[2021-02-13] MEDS ORDERED: SENN8.6T28 PO (00:19)
[2021-02-13] MEDS ORDERED: LORA2TAB14 PO (00:19)
[2021-02-13] MEDS ORDERED: DULO60CA35 PO (00:19)
[2021-02-13] MEDS ORDERED: ESOM40CA35 PO (00:19)
[2021-02-13] MEDS ORDERED: LINZ290C PO (00:19)
[2021-02-13] MEDS ORDERED: BACL10TA2 PO (00:19)
[2021-02-13] MEDS ORDERED: FLEEENE12 PR (00:25)
[2021-02-13] MEDS ORDERED: MILK400S12 PO (00:25)
[2021-02-13] MEDS ORDERED: BISA10EN PR (00:25)
[2021-02-13] MEDS ORDERED: FLEETOIL PR (00:25)
[2021-02-13] MEDS ORDERED: BACL1TAB9 PO (00:32)
[2021-02-13] MEDS ORDERED: RISP-7 PO (00:38)
[2021-02-13] MEDS ORDERED: SENN-123 PO (00:38)
[2021-02-13] MEDS ORDERED: HOME MED LIST COMPLETE! XX SCH (00:40)
[2021-02-13 01:32] LABS: INR 1.04; PROTHROMBIN TIME 14.1 SECONDS (12.7-14.5)
[2021-02-13 01:33] LABS: PARTIAL THROMBOPLASTIN TIME 40.6 SECONDS (25.9-37.0)
[2021-02-13 01:35] LABS: D-DIMER QUANT 302.54 ng/ml (<500)
[2021-02-13] MEDS ORDERED: SODIUM CHLORIDE 0.9% INJ 10 ML SYR IV ONE (02:00)
[2021-02-13] MEDS ORDERED: LR 1,000 ML IV SCH (02:00)
[2021-02-13 02:01] LABS: C REACTIVE PROTEIN QUANTITATIV 2.26 MG/DL (0.00-0.30); TROPONIN I < 0.02 NG/ML (< 0.10)
[2021-02-13] MEDS ORDERED: DEXTROSE 50% 50 ML SYRINGE IV PRN (02:25)
[2021-02-13] MEDS ORDERED: GLUCAGON INJ 1MG VIAL SC PRN (02:25)
[2021-02-13] MEDS ORDERED: GLUCOSE 4GM CHEW TABLET PO PRN (02:25)
[2021-02-13] MEDS: ALBUTEROL SULFATE 2.5 MG/0.5 ML INH NEB SOLN NEB SCH ×6 (03:35→23:18)
[2021-02-13] MEDS ORDERED: NOREPINEPHRINE 4 MG/4 ML AMP As Ordered ONE ×2 (05:21→05:26)
[2021-02-13] MEDS ORDERED: NOREPINEPHRINE BITARTRATE 8 MG in D5W 492 ML IV SCH (05:30)
[2021-02-13 05:43] LABS: BASO % 0.1 % (0.0-1.0); EOS % 0.2 % (0.0-3.0); HEMATOCRIT 26.3 % (36.0-47.0); LYMPH # 2.8 10^3/uL (1.5-5.0); LYMPH % 28.9 % (24.0-44.0); MEAN CORPUSCULAR HEMOGLOBIN 29.1 pg (27.0-33.0); MEAN CORPUSCULAR HGB CONC 30.4 g/dl (32.0-36.5); MEAN CORPUSCULAR VOLUME 95.6 fl (80.0-96.0); MONO # 0.9 10^3/uL (0.0-0.8); MONO % 9.5 % (2.0-8.0); NEUTROPHILS # 5.9 10^3/uL (1.5-8.5); NEUTROPHILS % 60.9 % (36.0-66.0); PLATELET COUNT, AUTOMATED 122 10^3/uL (150-450); RED BLOOD COUNT 2.75 10^6/uL (4.00-5.40); WHITE BLOOD COUNT 9.7 10^3/uL (4.0-10.0)
[2021-02-13 05:58] LABS: BLOOD UREA NITROGEN 16 MG/DL (7-18); CALCIUM LEVEL 8.2 MG/DL (8.5-10.1); CARBON DIOXIDE LEVEL 28 MEQ/L (21-32); CHLORIDE LEVEL 116 MEQ/L (98-107); CREATININE FOR GFR 0.81 MG/DL (0.55-1.30); GLOMERULAR FILTRATION RATE > 60.0 (>51); GLUCOSE, FASTING 68 MG/DL (70-100); MAGNESIUM LEVEL 1.7 MG/DL (1.8-2.4); POTASSIUM SERUM 4.7 MEQ/L (3.5-5.1); SODIUM LEVEL 146 MEQ/L (136-145)
[2021-02-13] MEDS ORDERED: LEVOTHYROXINE 112MCG TABLET (0.112MG) PO SCH (06:00)
[2021-02-13] MEDS ORDERED: FLEET OIL RETENTION ENEMA PR PRN (07:40)
[2021-02-13 07:46] LABS: AMPHETAMINES LEVEL URINE NEGATIVE (NEGATIVE); BARBITURATES URINE NEGATIVE (NEGATIVE); BENZODIAZEPINES URINE NEGATIVE (NEGATIVE); CANNABINOIDS URINE NEGATIVE (NEGATIVE); COCAINE METABOLITE URINE NEGATIVE (NEGATIVE); METHADONE URINE NEGATIVE (NEGATIVE); OPIATES URINE NEGATIVE (NEGATIVE); PHENCYCLIDINE URINE NEGATIVE (NEGATIVE)
[2021-02-13] MEDS: FOLIC ACID 1 MG TAB PO SCH ×2 (08:22→09:00)
[2021-02-13] MEDS: SENOKOT S TAB PO SCH ×2 (08:22→09:00)
[2021-02-13] MEDS: BACLOFEN 10 MG TAB PO SCH ×4 (08:22→21:00)
[2021-02-13] MEDS: D5W/0.45% SODIUM CHLORIDE 1,000 ML IV SCH ×3 (08:22→21:05)
[2021-02-13] MEDS: OMEPRAZOLE 20 MG CAP PO SCH ×2 (08:22→09:00)
[2021-02-13] MEDS: MOM 30ML SUSPENSION UDC PO SCH ×2 (08:23→09:00)
[2021-02-13] MEDS: ENOXAPARIN 40MG/0.4ML SYRINGE (J1650 PER 10MG) SC SCH (08:23)
[2021-02-13] MEDS: dexameTHASONE 4 MG/ML 1ML VIAL (J1100 PER 1MG) IV SCH (08:23)
--- NOTE | 2021-02-13 08:25 | REP ---
INDICATION: Altered Mental Status COMPARISON: None. TECHNIQUE: Portable AP view of the chest FINDINGS: The mediastinum and cardiac silhouette are stable and within normal limits for portable technique. The lung rodriguez are clear without acute consolidation, effusion, or pneumothorax. Skeletal structures are intact. IMPRESSION: No acute cardiopulmonary process appreciated. <Electronically signed by Sam Cameron > 02/13/21 0815
[2021-02-13] MEDS ORDERED: BISACODYL 10 MG SUPP PR SCH (09:00)
[2021-02-13] MEDS: TOPIRAMATE (TopAMAX) 100 MG TAB PO SCH ×2 (09:00→21:00)
[2021-02-13] MEDS ORDERED: TOPIRAMATE (TopAMAX) 100 MG TAB PO SCH (09:00)
[2021-02-13] MEDS: risperiDONE 1 MG TAB PO SCH ×2 (09:00→21:00)
[2021-02-13] MEDS ORDERED: ENOXAPARIN 30MG/0.3ML SYRINGE (J1650 PER 10MG) SC SCH (09:00)
[2021-02-13] MEDS ORDERED: ASPIRIN 81MG ENTERIC TABLET PO SCH (09:00)
[2021-02-13] MEDS: risperiDONE 0.5 MG TAB PO SCH ×2 (09:00→21:00)
[2021-02-13] MEDS ORDERED: LEVOTHYROXINE 100MCG (0.1MG) VIAL IV SCH (09:00)
--- NOTE | 2021-02-13 11:43 | IPNPDOC ---
Text Note Date of Service The patient was seen on 02/13/21. NOTE SUBJECTIVE: -No acute complaints, remains on room air, normotensive off levophed OBJECTIVE: VITALS: see below GENERAL APPEARANCE: slim build, continues to be ill appearing, NAD otherwise HEENT: NCAT, EOMI, dry MM CARDIOVASCULAR: RRR, no m/r/g LUNGS: CTAB on RA, no crackles, wheezing or rhonchi ABDOMEN: contour flat, soft, normoactive sounds, no grimacing with deep palpatio n EXT: No edema, [facility] LABORATORY DATA: WBC 9.7 hgb 8 platelets 122 na 146 K 4.7 Cr 0.81 mag 1.7 IMAGING: Chest xray report pending (based on personal visualization the patient is rotated to the left but the lungs appear clear) CT head IMPRESSION: 1. 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 2. No acute intracranial lesion or injury. MICROBIOLOGY: + COVID ASSESSMENT: 50 yr old w developmental disability, hypothyroidism, debility & left sided hearing loss who is admitted for encephalopathy, hypotension, Moderna vaccinated, who was admitted with hypoxemia 2/2 COVID 19 infection, JACOB and dehydration, briefly requiring transient peripheral levophed. PLAN: COVID-19 infection with hypoxemia -She had recorded O2 sats as low as 72% at presentation? Now saturating well on room air. -supplemental O2, PRN for target O2 sats between 92-95% -contact & droplet precautions -awake proning (if the pt will tolerate it) -albuterol mdi -Day #1 of dexamethasone / Remdesivir -covid-19 inflammatory marker lab checks per protocol -Q4H pulse ox check with vitals Metabolic Encephalopathy 2/2 acute illness, dehydration, hypoglycemia and transient hypoxemia -improving Prerenal JACOB: likey due to poor PO intake and COVID Cr the day prior had been 0.64, and on presentation it was 0.98, improving with hydration -continue IVF as D51/2 NS at 150cc/hr until PO is appropriate and hypoglycemia has resolved, then can switch to appropriate crystalloid per electrolytes as indicated Hypoglycemia: 2/2 poor PO in setting of covid-19 infection -continue IVF as D51/2 NS at 150cc/hr until PO is appropriate and hypoglycemia has resolved, then can switch to appropriate crystalloid per electrolytes as indicated -Otherwise on a regular diet Anemia / Thalassemia trait -monitor daily CBC Developmental Disability -More awake now, will resume home meds Hypothyroidism -continue home Levothyroxine Chronic Constipation -continue home regimen DVT ppx w Lovenox QD Disposition: Transfer from ICU to med/surg, no tele. PT/OT, for now plan will be to return to [facility] after more than 2 midnights stay VS,Fishbone, I+O VS, Fishbone, I+O Laboratory Tests 02/12/21 21:10 02/13/21 04:51 Vital Signs Date Time Temp Pulse Resp B/P (MAP) Pulse Ox O2 Delivery O2 Flow Rate FiO2 02/13/21 07:15 92 118/75 (89) 99 02/13/21 04:00 97.8 16 Nasal Cannula 2.0 I&O- Last 24 Hours up to 6 AM 02/13/21 06:00 Intake Total 1550 ml Output Total 100 ml Balance 1450 ml TERESA MARIO MD Feb 13, 2021 08:00
[2021-02-13] MEDS: BISACODYL 10 MG SUPP PR SCH ×2 (13:01→21:00)
[2021-02-13] MEDS ORDERED: LORazepam 2 MG/ML VIAL IV STA (13:45)
[2021-02-13] MEDS ORDERED: LORazepam 2 MG/ML VIAL As Ordered ONE (13:50)
[2021-02-13] MEDS: DULoxetine 30MG CAPSULE (CYMBALTA) PO SCH ×2 (16:00→17:22)
--- NOTE | 2021-02-13 19:38 | ECGEPIP ---
[facility] - ED Test Date: 2021-02-12 Pat Name: BALTAZAR PARRISH Department: Room: [place] [address] Gender: Female Table Attendant: NITZA : 1970 Requested By: JONAH Tejeda Order Number: [id number] Reading MD: Hari Vicente Measurements Intervals [place] Rate: 128 P: 56 IA: 174 QRS: 21 QRSD: 82 T: 49 QT: 274 QTc: 400 Interpretive Statements Sinus tachycardia POOR R WAVE PROGRESSION BASELINE ARTIFACT AFFECTS INTERPRETATION Electronically Signed on 02-13-2021 19:37:50 EDT by Hari Vicente
[2021-02-13] MEDS: traMADol ER 100MG TABLET (ULTRAM ER) PO SCH (21:00)
[2021-02-13] MEDS: MONTELUKAST 10 MG TAB PO SCH (21:00)
[2021-02-13] MEDS ORDERED: LORazepam 2 MG TAB PO SCH (21:00)
[2021-02-13] MEDS ORDERED: LINACLOTIDE 290 MCG PO SCH (21:00)
[2021-02-13] MEDS: LACTULOSE 20 GM/30 ML SYRUP UD PO SCH (21:00)
[2021-02-13] MEDS ORDERED: REMDESIVIR 100 MG in NS 250 ML IV SCH (23:00)
[2021-02-14] VITALS (8 sets, daily range): BP systolic 108–133; BP diastolic 68–74; O2SAT 93–96
[2021-02-14] MEDS ORDERED: SODIUM CHLORIDE 0.9% INJ 10 ML SYR IV SCH
[2021-02-14] MEDS: ALBUTEROL SULFATE 2.5 MG/0.5 ML INH NEB SOLN NEB SCH ×7 (03:07→20:08)
[2021-02-14] MEDS: D5W/0.45% SODIUM CHLORIDE 1,000 ML IV SCH ×2 (03:35→10:53)
[2021-02-14 07:13] LABS: HEMATOCRIT 30.7 % (36.0-47.0); HEMOGLOBIN 9.7 g/dl (12.0-15.5); MEAN CORPUSCULAR HGB CONC 31.6 g/dl (32.0-36.5); MEAN CORPUSCULAR VOLUME 91.9 fl (80.0-96.0); PLATELET COUNT, AUTOMATED 147 10^3/uL (150-450); RED BLOOD COUNT 3.34 10^6/uL (4.00-5.40); WHITE BLOOD COUNT 8.5 10^3/uL (4.0-10.0)
[2021-02-14 07:24] LABS: INR 1.02; PROTHROMBIN TIME 13.8 SECONDS (12.7-14.5)
[2021-02-14 07:26] LABS: PARTIAL THROMBOPLASTIN TIME 49.5 SECONDS (25.9-37.0)
[2021-02-14 07:58] LABS: ALBUMIN 2.4 GM/DL (3.2-5.2); ALT/SGPT 67 U/L (12-78); BILIRUBIN,DIRECT < 0.1 MG/DL (0.0-0.2); BILIRUBIN,TOTAL 0.1 MG/DL (0.2-1.0); BLOOD UREA NITROGEN 12 MG/DL (7-18); CARBON DIOXIDE LEVEL 28 MEQ/L (21-32); CHLORIDE LEVEL 111 MEQ/L (98-107); CPK CREATINE PHOSPHOKINASE 98 U/L (26-192); CREATININE FOR GFR 0.86 MG/DL (0.55-1.30); FERRITIN 1080 NG/ML (8-252); GLOMERULAR FILTRATION RATE > 60.0 (>51); GLUCOSE, FASTING 100 MG/DL (70-100); LDH LACTATE DEHYDROGENASE 145 U/L (84-246); NT-PRO BNP 1140 PG/ML (<125); SODIUM LEVEL 143 MEQ/L (136-145); TOTAL PROTEIN 6.5 GM/DL (6.4-8.2); TROPONIN I < 0.02 NG/ML (< 0.10)
[2021-02-14] MEDS: PANTOPRAZOLE 40MG VIAL (C9113 PER 1) IV SCH (09:00)
[2021-02-14] MEDS: LEVOTHYROXINE 100MCG (0.1MG) VIAL IV SCH (09:00)
[2021-02-14] MEDS: FOLIC ACID 1 MG TAB PO SCH (09:00)
[2021-02-14] MEDS: risperiDONE 0.5 MG TAB PO SCH ×2 (09:00→21:00)
[2021-02-14] MEDS: SENOKOT S TAB PO SCH (09:00)
[2021-02-14] MEDS: BACLOFEN 10 MG TAB PO SCH ×3 (09:00→21:00)
[2021-02-14] MEDS: TOPIRAMATE (TopAMAX) 100 MG TAB PO SCH ×2 (09:00→21:00)
[2021-02-14] MEDS: MOM 30ML SUSPENSION UDC PO SCH (09:00)
[2021-02-14] MEDS: BISACODYL 10 MG SUPP PR SCH ×2 (09:00→21:00)
[2021-02-14] MEDS: ENOXAPARIN 40MG/0.4ML SYRINGE (J1650 PER 10MG) SC SCH (09:00)
[2021-02-14] MEDS: FLEET ENEMA PR SCH (09:00)
[2021-02-14] MEDS: dexameTHASONE 4 MG/ML 1ML VIAL (J1100 PER 1MG) IV SCH (09:00)
[2021-02-14] MEDS: risperiDONE 1 MG TAB PO SCH ×2 (09:00→21:00)
[2021-02-14] MEDS ORDERED: LORazepam 2 MG/ML VIAL IV SCH (09:45)
[2021-02-14] MEDS ORDERED: MAG SULF 1GM/100ML (MAG RUN) 1 GM in IV 1 EA IV ONE (09:45)
--- NOTE | 2021-02-14 11:34 | IPNPDOC ---
Text Note Date of Service The patient was seen on 02/14/21. NOTE SUBJECTIVE: -No acute complaints, remains on room air -Not taking PO, refusing at this time OBJECTIVE: VITALS: see below GENERAL APPEARANCE: continues to be ill appearing, NAD otherwise HEENT: NCAT, EOMI, dry MM CARDIOVASCULAR: RRR, no m/r/g LUNGS: CTAB on RA, no crackles, wheezing or rhonchi ABDOMEN: contour flat, soft, normoactive sounds, no grimacing with deep palpation EXT: No edema, [facility]P LABORATORY DATA: WBC 9.7 hgb 8 platelets 122 na 146 K 4.7 Cr 0.81 mag 1.7 IMAGING: Chest xray report pending (based on personal visualization the patient is rotated to the left but the lungs appear clear) CT head IMPRESSION: 1. 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 2. No acute intracranial lesion or injury. MICROBIOLOGY: + COVID ASSESSMENT: 50 yr old w developmental disability, hypothyroidism, debility & left sided hearing loss who is admitted for encephalopathy, hypotension, Moderna vaccinated, who was admitted with hypoxemia 2/2 COVID 19 infection, JACOB and dehydration, briefly requiring transient peripheral levophed. PLAN: COVID-19 infection -She had recorded O2 sats as low as 72% at presentation? Now saturating well on room air. -supplemental O2, PRN for target O2 sats between 92-95% -contact & droplet precautions -albuterol mdi -DC dexamethasone / Remdesivir, on room air -covid-19 inflammatory marker lab checks per protocol -Q4H pulse ox check with vitals Metabolic Encephalopathy 2/2 acute illness, dehydration, hypoglycemia and tr ansient hypoxemia -improving Prerenal JACOB: likey due to poor PO intake and COVID Cr the day prior had been 0.64, and on presentation it was 0.98, improving with hydration -continue IVF as D51/2 NS at 75cc/hr until PO is appropriate Hypoglycemia: 2/2 poor PO in setting of covid-19 infection -continue IVF as D51/2 NS at 75cc/hr until PO is appropriate -Otherwise on a regular diet Anemia / Thalassemia trait -monitor daily CBC Developmental Disability -More awake now -Encouragge PO and home meds. in the meantime switched essential meds to IV and [place] including benzo, synthroid and laxative. Hypothyroidism -continue home Levothyroxine Chronic Constipation -continue home regimen DVT ppx w Lovenox QD Disposition: med/surg, tele. PT/OT, for now plan will be to return to [facility] after more than 2 midnights stay VSPatrice, I+O VSPatrice I+O Laboratory Tests 02/14/21 06:26 Vital Signs Date Time Temp Pulse Resp B/P (MAP) Pulse Ox O2 Delivery O2 Flow Rate FiO2 02/14/21 05:33 98.9 121 22 133/74 (93) 96 Room Air 02/13/21 04:00 2.0 I&O- Last 24 Hours up to 6 AM 02/14/21 06:00 Intake Total 1145 ml Output Total 1900 ml Balance -755 ml TERESA MARIO MD Feb 14, 2021 09:48
[2021-02-14] MEDS ORDERED: ISOVUE-370 76% 100ML VIAL As Ordered ONE (14:51)
[2021-02-14] MEDS: DULoxetine 30MG CAPSULE (CYMBALTA) PO SCH (16:00)
[2021-02-14] MEDS ORDERED: NS 1,000 ML IV ONE (16:00)
[2021-02-14] MEDS: ACETAMINOPHEN 650 MG SUPP PR PRN ×2 (16:02→22:32)
--- NOTE | 2021-02-14 18:30 | REPVR ---
PROCEDURE INFORMATION: Exam: CTA Chest With Contrast Exam date and time: 02/14/2021 5:43 PM Age: 50 years old Clinical indication: Other: Tachycardia; Additional info: Tachycardia, with covid, R/O pe TECHNIQUE: Imaging protocol: Computed tomographic angiography of the chest with contrast. 3D rendering (Not supervised by radiologist): MIP and/or 3D reconstructed images were created by the technologist. Radiation optimization: All CT scans at this facility use at least one of these dose optimization techniques: automated exposure control; mA and/or kV adjustment per patient size (includes targeted exams where dose is matched to clinical indication); or iterative reconstruction. Contrast material: ISOVBUE 370; Contrast volume: 75 ml; Contrast route: INTRAVENOUS (IV); COMPARISON: CR PORTABLE CHEST X-RAY 02/12/2021 9:27 PM FINDINGS: Pulmonary arteries: There are no pulmonary emboli. Aorta: There is no aortic dissection or aneurysm. Lungs: Bilateral multifocal airspace infiltrates both semi-solid and solid predominantly in the lower lung zones consistent with multifocal pneumonitis. Findings consistent with known Covid diagnosis. Well inflated lungs may indicate COPD. Pleural spaces: Small bilateral pleural effusions. Heart: Unremarkable. No cardiomegaly. No pericardial effusion. Lymph nodes: Unremarkable. No enlarged lymph nodes. Bones/joints: The spine demonstrates mild degenerative changes. Soft tissues: Unremarkable. IMPRESSION: 1. Bilateral multifocal airspace infiltrates both semi-solid and solid predominantly in the lower lung zones consistent with multifocal pneumonitis. Findings consistent with known Covid diagnosis. 2. Small bilateral pleural effusions. 3. There is no aortic dissection or aneurysm. 4. Well inflated lungs may indicate COPD. 5. There are no pulmonary emboli. Electronically signed by: Leonard Olvera On 02/14/2021 18:30:07 PM
--- NOTE | 2021-02-14 20:57 | ECGEPIP ---
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
[2021-02-14] MEDS: traMADol ER 100MG TABLET (ULTRAM ER) PO SCH (21:00)
[2021-02-14] MEDS: LACTULOSE 20 GM/30 ML SYRUP UD PO SCH (21:00)
[2021-02-14] MEDS: MONTELUKAST 10 MG TAB PO SCH (21:00)
[2021-02-14] MEDS: LORazepam 2 MG/ML VIAL IV SCH (22:33)
[2021-02-14] MEDS: cefTRIAXone SOD 1 GM in D5W MINI-BAG PLUS 50 ML IV SCH (22:33)
[2021-02-14] MEDS ORDERED: ONDANSETRON 4MG/2ML VIAL IV PRN (23:25)
[2021-02-15] VITALS (7 sets, daily range): BP systolic 103–128; BP diastolic 55–77; O2SAT 93–98
[2021-02-15] MEDS: ALBUTEROL SULFATE 2.5 MG/0.5 ML INH NEB SOLN NEB SCH ×6 (04:00→21:02)
[2021-02-15] MEDS ORDERED: ONDANSETRON 4MG/2ML VIAL IV PRN (05:10)
[2021-02-15] MEDS ORDERED: METOCLOPRAMIDE INJ 10MG/2ML VIAL (J2765 PER 1) IV PRN (05:10)
[2021-02-15] MEDS ORDERED: NS 500 ML IV ONE (05:15)
[2021-02-15 06:20] LABS: HEMATOCRIT 28.2 % (36.0-47.0); HEMOGLOBIN 9.2 g/dl (12.0-15.5); MEAN CORPUSCULAR HEMOGLOBIN 29.8 pg (27.0-33.0); MEAN CORPUSCULAR HGB CONC 32.6 g/dl (32.0-36.5); MEAN CORPUSCULAR VOLUME 91.3 fl (80.0-96.0); PLATELET COUNT, AUTOMATED 132 10^3/uL (150-450); RED BLOOD COUNT 3.09 10^6/uL (4.00-5.40); WHITE BLOOD COUNT 29.9 10^3/uL (4.0-10.0)
[2021-02-15 06:45] LABS: BLOOD UREA NITROGEN 9 MG/DL (7-18); CALCIUM LEVEL 8.5 MG/DL (8.5-10.1); CARBON DIOXIDE LEVEL 31 MEQ/L (21-32); CHLORIDE LEVEL 108 MEQ/L (98-107); CREATININE FOR GFR 0.86 MG/DL (0.55-1.30); GLOMERULAR FILTRATION RATE > 60.0 (>51); GLUCOSE, FASTING 109 MG/DL (70-100); MAGNESIUM LEVEL 1.5 MG/DL (1.8-2.4); POTASSIUM SERUM 3.2 MEQ/L (3.5-5.1); SODIUM LEVEL 142 MEQ/L (136-145)
--- NOTE | 2021-02-15 07:06 | REPVR ---
PROCEDURE INFORMATION: Exam: XR Abdomen Exam date and time: 02/15/2021 5:55 AM Age: 50 years old Clinical indication: Vomiting; Additional info: Intractable vomiting, R/O obstruction TECHNIQUE: Imaging protocol: XR of the abdomen. Views: Frontal supine view of the abdomen. 1 View. COMPARISON: CR ABDOMEN (MIN 2 VIEW) 12/30/2020 3:44 PM FINDINGS: Gastrointestinal tract: Small to moderate stool burden seen in the right and transverse colon which is redundant and low lying in the pelvis. Organs: Contrast is seen in the urinary bladder. Bones/joints: Unremarkable. IMPRESSION: No abnormally dilated small bowel loops to suggest small bowel obstruction however paucity of air in the small bowel loops limiting the evaluation for fluid distended small bowel loops. Electronically signed by: Vaibhav Kathleen On 02/15/2021 07:05:32 AM
[2021-02-15] MEDS: FOLIC ACID 1 MG TAB PO SCH (09:00)
[2021-02-15] MEDS ORDERED: MAG SULF 1GM/100ML (MAG RUN) 1 GM in IV 1 EA IV ONE (09:00)
[2021-02-15] MEDS: TOPIRAMATE (TopAMAX) 100 MG TAB PO SCH ×2 (09:00→22:07)
[2021-02-15] MEDS: BACLOFEN 10 MG TAB PO SCH ×3 (09:00→22:06)
[2021-02-15] MEDS: risperiDONE 1 MG TAB PO SCH ×2 (09:00→22:06)
[2021-02-15] MEDS: LEVOTHYROXINE 100MCG (0.1MG) VIAL IV SCH (09:00)
[2021-02-15] MEDS: MOM 30ML SUSPENSION UDC PO SCH (09:00)
[2021-02-15] MEDS ORDERED: POTASSIUM CHLORIDE 10MEQ SR TABLET PO ONE (09:00)
[2021-02-15] MEDS: risperiDONE 0.5 MG TAB PO SCH ×2 (09:00→22:06)
[2021-02-15] MEDS: SENOKOT S TAB PO SCH (09:00)
[2021-02-15] MEDS: ENOXAPARIN 40MG/0.4ML SYRINGE (J1650 PER 10MG) SC SCH (09:00)
[2021-02-15] MEDS: D5W/0.45% SODIUM CHLORIDE 1,000 ML IV SCH ×2 (10:17→13:45)
[2021-02-15] MEDS: LORazepam 2 MG/ML VIAL IV SCH ×2 (10:19→20:51)
[2021-02-15] MEDS: PANTOPRAZOLE 40MG VIAL (C9113 PER 1) IV SCH (10:20)
[2021-02-15] MEDS: ACETAMINOPHEN 650 MG SUPP PR PRN (10:20)
[2021-02-15] MEDS: dexameTHASONE 20MG/5ML VIAL (J1100 PER 1MG) IV SCH (10:20)
[2021-02-15] MEDS: BISACODYL 10 MG SUPP PR SCH ×2 (10:20→20:51)
[2021-02-15] MEDS: FLEET ENEMA PR SCH (10:21)
[2021-02-15] MEDS: REMDESIVIR 100 MG in NS 250 ML IV SCH (13:45)
[2021-02-15] MEDS: DULoxetine 30MG CAPSULE (CYMBALTA) PO SCH (16:00)
[2021-02-15] MEDS: KCL 10MEQ/100ML SWI (KRUN) 10 MEQ in IV 1 EA IV SCH ×4 (16:04→20:52)
[2021-02-15] MEDS ORDERED: ISOVUE-370 76% 100ML VIAL As Ordered ONE (18:13)
--- NOTE | 2021-02-15 19:14 | REPVR ---
PROCEDURE INFORMATION: Exam: CT Abdomen And Pelvis With Contrast Exam date and time: 02/15/2021 6:12 PM Age: 50 years old Clinical indication: Fever; Additional info: Worsening leukocytosis, R/O abd infection, fever TECHNIQUE: Imaging protocol: Computed tomography of the abdomen and pelvis with contrast. Axial, coronal and sagittal reformatted images were created and reviewed. Radiation optimization: All CT scans at this facility use at least one of these dose optimization techniques: automated exposure control; mA and/or kV adjustment per patient size (includes targeted exams where dose is matched to clinical indication); or iterative reconstruction. Contrast material: ISOVUE 370; Contrast volume: 100 ml; Contrast route: INTRAVENOUS (IV); COMPARISON: CR ABDOMEN (MIN 2 VIEW) 12/30/2020 3:44 PM FINDINGS: Lungs: Confluent left greater than right lower lobe infiltrates with associated peribronchial thickening. Subtle foci of reticulonodular infiltration in the right middle lobe. Pleural spaces: Small pleural effusions. Liver: Unremarkable. Gallbladder and bile ducts: No radiodense gallstones. No biliary ductal dilatation. Pancreas: Unremarkable. Spleen: Indeterminate 1.3 cm low-density splenic lesion. Adrenal glands: Normal. No mass. Kidneys and ureters: No mass. No radiodense calculi. No hydronephrosis. Stomach and bowel: Under distention versus mild wall thickening of the distal ascending, transverse and proximal descending colon. No obstruction. No pneumatosis. Appendix: Normal. Intraperitoneal space: Small ascites and mild, diffuse intra-abdominal edema. No definite organized collection. No free air. Vasculature: Unremarkable. No aneurysm. Lymph nodes: No pathologically enlarged lymph nodes. Urinary bladder: Unremarkable as visualized. Reproductive: Somewhat lobular, heterogeneous uterus, likely due to fibroids. Bones/joints: No acute osseous abnormality. Soft tissues: Unremarkable. IMPRESSION: 1. Under distention versus mild wall thickening of the distal ascending, transverse and proximal descending colon. Mild nonspecific colitis cannot be excluded. 2. Confluent left greater than right lower lobe infiltrates with associated peribronchial thickening, concerning for pneumonia/aspiration. 3. Small pleural effusions. 4. Indeterminate 1.3 cm low-density splenic lesion, possibly a hemangioma. If clinically indicated, MRI may be obtained for further evaluation. 5. Additional findings, as above. Electronically signed by: Wong Reyes On 02/15/2021 19:13:52 PM
--- NOTE | 2021-02-15 19:29 | IPNPDOC ---
Date Seen The patient was seen on 02/15/21. Progress Note SUBJECTIVE: Worsening tachycardia, sinus rhythm overnight but stabilized today. Still refusing PO meds. On RA, no acute events overnight aside from spiking fever. OBJECTIVE: PE: VITALS: see below GENERAL APPEARANCE: continues to be ill appearing, noncommunicative, does not respond to questions HEENT: NCAT, EOMI, dry MM CARDIOVASCULAR: RRR, no m/r/g LUNGS: CTAB on RA, no crackles, wheezing or rhonchi ABDOMEN: contour flat, soft, normoactive sounds, no grimacing with deep palpation EXT: No edema, WWP NEURO: no focal deficits LABORATORY DATA: Please see below IMAGING: CT abd/pelvis: 1. Under distention versus mild wall thickening of the distal ascending, transverse and proximal descending colon. Mild nonspecific colitis cannot be excluded. 2. Confluent left greater than right lower lobe infiltrates with associated peribronchial thickening, concerning for pneumonia/aspiration. 3. Small pleural effusions. 4. Indeterminate 1.3 cm low-density splenic lesion, possibly a hemangioma. If clinically indicated, MRI may be obtained for further evaluation. 5. Additional findings, as above. CTA chest: 1. Bilateral multifocal airspace infiltrates both semi-solid and solid pre dominantly in the lower lung zones consistent with multifocal pneumonitis. Findings consistent with known Covid diagnosis. 2. Small bilateral pleural effusions. 3. There is no aortic dissection or aneurysm. 4. Well inflated lungs may indicate COPD. 5. There are no pulmonary emboli. MICROBIOLOGY: + COVID UCx E. coli Admission blood culture: NG to date F/u blood cultures x 2 sets ASSESSMENT: 50 yr old w developmental disability, hypothyroidism, debility & left sided hearing loss who is admitted for encephalopathy, hypotension, Moderna vaccinated, who was admitted with hypoxemia 2/2 COVID 19 infection, JACOB and dehydration, briefly requiring transient peripheral levophed. PLAN: COVID-19 infection with multifocal pneumonitis -Saturating well on RA, WBC almost 30K but this is likely reactive to steroids mostly -Spiking intermittent fevers which can be from this alone -contact & droplet precautions -albuterol mdi -Remdesevir had been discontinued ;however, with diagnosis above discussed with pulmonary Dr. Major. Restarted remdesivir and continued dexamethasone -covid-19 inflammatory marker lab checks per protocol Metabolic Encephalopathy 2/2 acute illness, dehydration, hypoglycemia and transient hypoxemia -Not very communicative currently, improved anxiety Decreased PO intake likely 2/2 to acute illness -this includes PO medications as well -Nursing has tried encouraging but she may need a person to sit with her to help feed. -Will discuss with team to see if this can be provided given her handicap. -D/w brother today and POA (Karthik) and if artificial means of nutrition is needed, can discuss in coming days. -For now, c/w encouraging and with D5/0.45% fluids Hypoglycemia 2/2 poor PO in setting of covid-19 infection -BS 109 today, not taking good oral intake -continue IVF as D51/2 NS at 75cc/hr until PO is appropriate -regular diet -Hypoglycemic protocol in place E. coli UTI -UCx in chart -Has been on ceftriaxone -F/u blood cultures Leukocytosis likely steroid induced, r/o other infections -Known COVID 19 and UTI; however, r/o other causes for spiking fevers -CTA chest: see above -Procalcitonin low so not suspicious for superimposed PNA currently -C/w only ceftriaxone for now -F/u micro above Hypomagnesemia likely 2/2 to decreased PO intake -Replace PRN Hypokalemia likely 2/2 to decreased PO intake -Replace PRN B/l pleural effusions -On RA -If worsens O2 status, consider diuresis intermittent and stopping fluids. Anemia / Thalassemia trait -monitor daily CBC Developmental Disability -More awake now -Encouragge PO and home meds. in the meantime switched essential meds to IV and [place] including benzo, synthroid and laxative. Hypothyroidism -continue home Levothyroxine Chronic Constipation -continue home regimen DVT ppx w Lovenox QD Resolved: Prerenal JACOB: likey due to poor PO intake and COVID Disposition: med/surg, tele. PT/OT, for now plan will be to return to [facility] after more than 2 midnights. Updated patient's POA and brother, Karthik Enriquez ( ) who lives in [place]. VS, I&O, 24H, Fishbone Vital Signs/I&O Vital Signs Date Time Temp Pulse Resp B/P (MAP) Pulse Ox O2 Delivery O2 Flow Rate FiO2 02/15/21 16:00 100.2 90 18 115/64 (81) 99 Room Air 02/13/21 04:00 2.0 I&O- Last 24 Hours up to 6 AM 02/15/21 06:00 Output Total 100 ml Balance -100 ml Laboratory Data 24H LABS Laboratory Tests 2 02/15/21 05:49: Nucleated Red Blood Cells % (auto) 0.0, D-Dimer, Quantitative 608.38H, Anion Gap 3L, Glomerular Filtration Rate > 60.0, Calcium Level 8.5, Magnesium Level 1.5L CBC/BMP Laboratory Tests 02/15/21 05:49 Microbiology Microbiology 02/15/21 Blood Culture, Received Pending 02/15/21 Blood Culture, Received Pending 02/13/21 Urine Culture - Final, Complete Escherichia Coli 02/13/21 Blood Culture - Preliminary, Resulted No Growth after 48 hours. All Specime... 02/12/21 Respiratory Virus Panel (PCR) ([facility]) - Final, Complete SARS-CoV-2 (COVID 19) Ana Naik MD Feb 15, 2021 19:29
[2021-02-15] MEDS: LACTULOSE 20 GM/30 ML SYRUP UD PO SCH (22:05)
[2021-02-15] MEDS: MONTELUKAST 10 MG TAB PO SCH (22:06)
[2021-02-15] MEDS: traMADol ER 100MG TABLET (ULTRAM ER) PO SCH (22:07)
[2021-02-16] VITALS (9 sets, daily range): BP systolic 121–144; BP diastolic 62–80; O2SAT 97–100
[2021-02-16] MEDS: ALBUTEROL SULFATE 2.5 MG/0.5 ML INH NEB SOLN NEB SCH ×6 (00:04→19:56)
[2021-02-16] MEDS: cefTRIAXone SOD 1 GM in D5W MINI-BAG PLUS 50 ML IV SCH ×2 (00:21→22:35)
[2021-02-16] MEDS: D5W/0.45% SODIUM CHLORIDE 1,000 ML IV SCH ×2 (04:13→16:18)
[2021-02-16 07:25] LABS: HEMATOCRIT 26.5 % (36.0-47.0); HEMOGLOBIN 8.6 g/dl (12.0-15.5); MEAN CORPUSCULAR HEMOGLOBIN 29.6 pg (27.0-33.0); MEAN CORPUSCULAR HGB CONC 32.5 g/dl (32.0-36.5); MEAN CORPUSCULAR VOLUME 91.1 fl (80.0-96.0); PLATELET COUNT, AUTOMATED 145 10^3/uL (150-450); RED BLOOD COUNT 2.91 10^6/uL (4.00-5.40); WHITE BLOOD COUNT 17.8 10^3/uL (4.0-10.0)
[2021-02-16 07:34] LABS: INR 1.13; PROTHROMBIN TIME 14.9 SECONDS (12.7-14.5)
[2021-02-16 07:36] LABS: PARTIAL THROMBOPLASTIN TIME 50.8 SECONDS (25.9-37.0)
[2021-02-16 07:57] LABS: ALBUMIN 2.1 GM/DL (3.2-5.2); ALT/SGPT 48 U/L (12-78); BILIRUBIN,DIRECT < 0.1 MG/DL (0.0-0.2); BILIRUBIN,TOTAL 0.2 MG/DL (0.2-1.0); BLOOD UREA NITROGEN 13 MG/DL (7-18); CALCIUM LEVEL 8.8 MG/DL (8.5-10.1); CARBON DIOXIDE LEVEL 28 MEQ/L (21-32); CHLORIDE LEVEL 112 MEQ/L (98-107); CPK CREATINE PHOSPHOKINASE 92 U/L (26-192); CREATININE FOR GFR 0.76 MG/DL (0.55-1.30); FERRITIN 1022 NG/ML (8-252); GLOMERULAR FILTRATION RATE > 60.0 (>51); GLUCOSE, FASTING 98 MG/DL (70-100); LDH LACTATE DEHYDROGENASE 153 U/L (84-246); NT-PRO BNP 617 PG/ML (<125); POTASSIUM SERUM 3.3 MEQ/L (3.5-5.1); SODIUM LEVEL 145 MEQ/L (136-145); TOTAL PROTEIN 6.1 GM/DL (6.4-8.2); TROPONIN I < 0.02 NG/ML (< 0.10)
[2021-02-16 08:28] LABS: MAGNESIUM LEVEL 1.7 MG/DL (1.8-2.4)
[2021-02-16] MEDS: MOM 30ML SUSPENSION UDC PO SCH (09:00)
[2021-02-16] MEDS: FLEET ENEMA PR SCH (09:00)
[2021-02-16] MEDS: dexameTHASONE 20MG/5ML VIAL (J1100 PER 1MG) IV SCH (10:52)
[2021-02-16] MEDS: LORazepam 2 MG/ML VIAL IV SCH ×2 (10:52→22:33)
[2021-02-16] MEDS: BISACODYL 10 MG SUPP PR SCH ×2 (10:52→22:35)
[2021-02-16] MEDS: ENOXAPARIN 40MG/0.4ML SYRINGE (J1650 PER 10MG) SC SCH (10:52)
[2021-02-16] MEDS: PANTOPRAZOLE 40MG VIAL (C9113 PER 1) IV SCH (10:52)
[2021-02-16] MEDS: FOLIC ACID 1 MG TAB PO SCH (10:53)
[2021-02-16] MEDS: risperiDONE 1 MG TAB PO SCH ×2 (10:53→22:34)
[2021-02-16] MEDS: BACLOFEN 10 MG TAB PO SCH ×3 (10:53→22:34)
[2021-02-16] MEDS: TOPIRAMATE (TopAMAX) 100 MG TAB PO SCH ×2 (10:54→22:34)
[2021-02-16] MEDS: SENOKOT S TAB PO SCH (10:54)
[2021-02-16] MEDS: risperiDONE 0.5 MG TAB PO SCH ×2 (10:54→22:34)
[2021-02-16] MEDS: REMDESIVIR 100 MG in NS 250 ML IV SCH (11:03)
[2021-02-16] MEDS: KCL 10MEQ/100ML SWI (KRUN) 10 MEQ in IV 1 EA IV SCH ×4 (11:07→14:56)
[2021-02-16] MEDS: DULoxetine 30MG CAPSULE (CYMBALTA) PO SCH (14:53)
[2021-02-16] MEDS: LEVOTHYROXINE 100MCG (0.1MG) VIAL IV SCH (14:54)
[2021-02-16] MEDS ORDERED: MAG SULF 1GM/100ML (MAG RUN) 1 GM in IV 1 EA IV ONE (17:25)
--- NOTE | 2021-02-16 17:26 | IPNPDOC ---
Date Seen The patient was seen on 02/16/21. Progress Note SUBJECTIVE: Per [facility], staff could not be sent over to assist the patient in eating due to being unable to return to the residence. They state her favorite food and stated that she eats very slow and that there is normally someone willing to spend an extended period of time with her, quick tries to encourage to eat will not work for her. She is also very hard of hearing. Discussed this with social work as we're trying to bring in somebody to help her do this during meals. Still poor by mouth intake overall, increased pro-calcitonin. Added azithromycin. No acute events overnight. Afebrile since yesterday a.m. OBJECTIVE: PE: VITALS: see below GENERAL APPEARANCE: more awake and alert today, baseline not responding to questions HEENT: NCAT, EOMI, dry MM CARDIOVASCULAR: RRR, no m/r/g LUNGS: CTAB on RA, no crackles, wheezing or rhonchi ABDOMEN: contour flat, soft, normoactive sounds, no grimacing with deep palpation of lower extemities EXT: No edema, WWP NEURO: no focal deficits LABORATORY DATA: Please see below IMAGING: CT abd/pelvis: 1. Under distention versus mild wall thickening of the distal ascending, transverse and proximal descending colon. Mild nonspecific colitis cannot be excluded. 2. Confluent left greater than right lower lobe infiltrates with associated peribronchial thickening, concerning for pneumonia/aspiration. 3. Small pleural effusions. 4. Indeterminate 1.3 cm low-density splenic lesion, possibly a hemangioma. If clinically indicated, MRI may be obtained for further evaluation. 5. Additional findings, as above. CTA chest: 1. Bilateral multifocal airspace infiltrates both semi-solid and solid predominantly in the lower lung zones consistent with multifocal pneumonitis. Findings consistent with known Covid diagnosis. 2. Small bilateral pleural effusions. 3. There is no aortic dissection or aneurysm. 4. Well inflated lungs may indicate COPD. 5. There are no pulmonary emboli. MICROBIOLOGY: + COVID UCx E. coli Admission blood culture: NG to date F/u blood cultures x 2 sets: NG to date ASSESSMENT: 50 yr old w developmental disability, hypothyroidism, debility & left sided hearing loss who is admitted for encephalopathy, hypotension, Moderna vaccinated, who was admitted with hypoxemia 2/2 COVID 19 infection, JACOB and dehydration, briefly requiring transient peripheral levophed. PLAN: COVID-19 infection with multifocal pneumonitis, possible PNA superimposed -WBC slightly improved, procalcitonin increased -Saturating well on RA, has been afebrile -contact & droplet precautions -albuterol mdi, added azithromycin for elevated pro-calcitonin and questionable findings on CT above -Remdesevir had been discontinued ;however, with diagnosis above discussed with pulmonary Dr. Major. Restarted remdesivir and continued dexamethasone on 02/15/21 -covid-19 inflammatory marker lab checks per protocol Metabolic Encephalopathy 2/2 acute illness, dehydration, hypoglycemia and transient hypoxemia -Not very communicative currently, improved anxiety and believed to be close to baseline currently Decreased PO intake likely 2/2 to acute illness -At baseline the patient's eats very slowly and has to have someone willing to spend an extended period of time with her, quick tries to help her eat do not work with her according to prior staff. He is also very hard of hearing so someone helping her eat meats. -Also has had poor PO intake of medications as well -Nursing has tried encouraging but I suggested someone to come and help sit with her while she feeds, aids social worker and into this capability for us. -D/w brother today and POA (Karthik) and if artificial means of nutrition is needed, can discuss in coming days. -For now, c/w encouraging and with D5/0.45% fluids Hypoglycemia 2/2 poor PO in setting of covid-19 infection -BS 98 today, not taking good oral intake -continue IVF as D51/2 NS at 75cc/hr until PO is appropriate -regular diet -Hypoglycemic protocol in place E. coli UTI -UCx in chart -Has been on ceftriaxone -F/u blood cultures Leukocytosis likely steroid induced, UTI, questionable pneumonia -Improving slowly -Known COVID 19 and UTI; possible superimposed pneumonia -CTA chest: see above -Procalcitonin now high , previously low -C/w only ceftriaxone and azithromycin -F/u micro above Hypomagnesemia likely 2/2 to decreased PO intake -Replace PRN Hypokalemia likely 2/2 to decreased PO intake -Replace PRN B/l pleural effusions -Imaging above -On RA -If worsens O2 status, consider diuresis intermittent and stopping fluids. Anemia / Thalassemia trait -monitor daily CBC Developmental Disability -More awake now -Encouragge PO and home meds. in the meantime switched essential meds to IV and [place] including benzo, synthroid and laxative. Hypothyroidism -continue home Levothyroxine Chronic Constipation -continue home regimen DVT ppx w Lovenox QD Resolved: Prerenal JACOB: likey due to poor PO intake and COVID Disposition: Plan is to return to [facility] when appropriate. PT/OT VS, I&O, 24H, Fishbone Vital Signs/I&O Vital Signs Date Time Temp Pulse Resp B/P (MAP) Pulse Ox O2 Delivery O2 Flow Rate FiO2 02/16/21 16:16 96.8 85 20 140/75 (96) 97 Room Air 02/13/21 04:00 2.0 I&O- Last 24 Hours up to 6 AM 02/16/21 06:00 Intake Total 1710 ml Balance 1710 ml Laboratory Data 24H LABS Laboratory Tests 2 02/16/21 06:39: Nucleated Red Blood Cells % (auto) 0.0, Prothrombin Time 14.9H, Prothromb Time International Ratio 1.13, Activated Partial Thromboplast Time 50.8H, Fibrinogen 489H, Anion Gap 5L, Glomerular Filtration Rate > 60.0, Calcium Level 8.8, Magnesium Level 1.7L, Ferritin 1022H, Total Bilirubin 0.2#, Direct Bilirubin < 0.1, Aspartate Amino Transf (AST/SGOT) 28, Alanine Aminotransferase (ALT/SGPT) 48, Alkaline Phosphatase 139H, Lactate Dehydrogenase 153, Total Creatine Kinase 92, Troponin I < 0.02, KY-Rjp-B-Type Natriuretic Peptide 617H, Total Protein 6.1L, Albumin 2.1L, Albumin/Globulin Ratio 0.5L, Procalcitonin 1.79 CBC/BMP Laboratory Tests 02/16/21 06:39 Microbiology Microbiology 02/15/21 Blood Culture - Preliminary, Resulted No growth after 24 hours . All specim... 02/15/21 Blood Culture - Preliminary, Resulted No growth after 24 hours . All specim... 02/13/21 Urine Culture - Final, Complete Escherichia Coli 02/13/21 Blood Culture - Preliminary, Resulted No Growth after 72 hours. All specime... 02/12/21 Respiratory Virus Panel (PCR) ([facility]) - Final, Complete SARS-CoV-2 (COVID 19) Ana Naik MD Feb 16, 2021 17:26
[2021-02-16] MEDS: AZITHROMYCIN INJ 500 MG, VIAL MATE ADAPTER 1 EACH in NS 250 ML IV SCH (22:32)
[2021-02-16] MEDS: MONTELUKAST 10 MG TAB PO SCH (22:34)
[2021-02-16] MEDS: traMADol ER 100MG TABLET (ULTRAM ER) PO SCH (22:34)
[2021-02-16] MEDS: LACTULOSE 20 GM/30 ML SYRUP UD PO SCH (22:44)
[2021-02-17] VITALS: O2SAT 95
[2021-02-17] MEDS: D5W/0.45% SODIUM CHLORIDE 1,000 ML IV SCH ×2 (02:32→22:01)
[2021-02-17] MEDS: ALBUTEROL SULFATE 2.5 MG/0.5 ML INH NEB SOLN NEB SCH ×6 (03:59→20:11)
[2021-02-17 05:39] VITALS: O2SAT 95
[2021-02-17 07:06] LABS: HEMOGLOBIN 8.7 g/dl (12.0-15.5); MEAN CORPUSCULAR HEMOGLOBIN 29.7 pg (27.0-33.0); MEAN CORPUSCULAR HGB CONC 32.2 g/dl (32.0-36.5); MEAN CORPUSCULAR VOLUME 92.2 fl (80.0-96.0); PLATELET COUNT, AUTOMATED 186 10^3/uL (150-450); RED BLOOD COUNT 2.93 10^6/uL (4.00-5.40); WHITE BLOOD COUNT 15.9 10^3/uL (4.0-10.0)
[2021-02-17 07:28] LABS: BLOOD UREA NITROGEN 12 MG/DL (7-18); CALCIUM LEVEL 8.6 MG/DL (8.5-10.1); CARBON DIOXIDE LEVEL 28 MEQ/L (21-32); CHLORIDE LEVEL 111 MEQ/L (98-107); CREATININE FOR GFR 0.66 MG/DL (0.55-1.30); GLOMERULAR FILTRATION RATE > 60.0 (>51); GLUCOSE, FASTING 94 MG/DL (70-100); MAGNESIUM LEVEL 1.8 MG/DL (1.8-2.4); POTASSIUM SERUM 3.3 MEQ/L (3.5-5.1); SODIUM LEVEL 144 MEQ/L (136-145)
[2021-02-17 08:00] VITALS: O2SAT 98
[2021-02-17] MEDS: MOM 30ML SUSPENSION UDC PO SCH (09:00)
[2021-02-17] MEDS: ENOXAPARIN 40MG/0.4ML SYRINGE (J1650 PER 10MG) SC SCH (09:21)
[2021-02-17] MEDS: PANTOPRAZOLE 40MG VIAL (C9113 PER 1) IV SCH (09:21)
[2021-02-17] MEDS: LEVOTHYROXINE 100MCG (0.1MG) VIAL IV SCH (09:21)
[2021-02-17] MEDS: LORazepam 2 MG/ML VIAL IV SCH ×2 (09:21→22:02)
[2021-02-17] MEDS: KCL 10MEQ/100ML SWI (KRUN) 10 MEQ in IV 1 EA IV SCH ×3 (09:22→12:14)
[2021-02-17] MEDS: risperiDONE 1 MG TAB PO SCH ×2 (09:35→22:06)
[2021-02-17] MEDS: TOPIRAMATE (TopAMAX) 100 MG TAB PO SCH ×2 (09:35→22:07)
[2021-02-17] MEDS: BACLOFEN 10 MG TAB PO SCH ×3 (09:35→22:06)
[2021-02-17] MEDS: FOLIC ACID 1 MG TAB PO SCH (09:37)
[2021-02-17] MEDS: BISACODYL 10 MG SUPP PR SCH ×2 (09:37→21:00)
[2021-02-17] MEDS: SENOKOT S TAB PO SCH (09:37)
[2021-02-17] MEDS: risperiDONE 0.5 MG TAB PO SCH ×2 (10:59→22:06)
[2021-02-17] MEDS: FLEET ENEMA PR SCH (11:00)
[2021-02-17] MEDS: REMDESIVIR 100 MG in NS 250 ML IV SCH (13:21)
[2021-02-17 13:24] VITALS: BP 124/72
[2021-02-17] MEDS: DULoxetine 30MG CAPSULE (CYMBALTA) PO SCH ×2 (15:38→15:39)
[2021-02-17] MEDS: AZITHROMYCIN INJ 500 MG, VIAL MATE ADAPTER 1 EACH in NS 250 ML IV SCH (17:12)
--- NOTE | 2021-02-17 20:55 | IPNPDOC ---
Date Seen The patient was seen on 02/17/21. Progress Note SUBJECTIVE: [facility] staff and hospital not able to provide person to sit with patient to help with extended feedings. Very slight improvement in taking medications but not so much with feeding. No acute events overnight. OBJECTIVE: PE: VITALS: see below GENERAL APPEARANCE: more awake and alert today, baseline not responding to questions HEENT: NCAT, EOMI, dry MM CARDIOVASCULAR: RRR, no m/r/g LUNGS: CTAB on RA, no crackles, wheezing or rhonchi ABDOMEN: contour flat, soft, normoactive sounds, no grimacing with deep palpation of lower extemities EXT: No edema, WWP NEURO: no focal deficits LABORATORY DATA: Please see below IMAGING: CT abd/pelvis: 1. Under distention versus mild wall thickening of the distal ascending, transverse and proximal descending colon. Mild nonspecific colitis cannot be excluded. 2. Confluent left greater than right lower lobe infiltrates with associated peribronchial thickening, concerning for pneumonia/aspiration. 3. Small pleural effusions. 4. Indeterminate 1.3 cm low-density splenic lesion, possibly a hemangioma. If clinically indicated, MRI may be obtained for further evaluation. 5. Additional findings, as above. CTA chest: 1. Bilateral multifocal airspace infiltrates both semi-solid and solid predominantly in the lower lung zones consistent with multifocal pneumonitis. Findings consistent with known Covid diagnosis. 2. Small bilateral pleural effusions. 3. There is no aortic dissection or aneurysm. 4. Well inflated lungs may indicate COPD. 5. There are no pulmonary emboli. MICROBIOLOGY: + COVID UCx E. coli Admission blood culture: NG to date F/u blood cultures x 2 sets: NG to date ASSESSMENT: 50 yr old w developmental disability, hypothyroidism, debility & left sided hearing loss who is admitted for encephalopathy, hypotension, Moderna vaccinated, who was admitted with hypoxemia 2/2 COVID 19 infection, JACOB and d ehydration, briefly requiring transient peripheral levophed. PLAN: COVID-19 infection with multifocal pneumonitis, possible PNA superimposed -WBC slightly improved further, procalcitonin increased -Saturating well on RA, has been afebrile -contact & droplet precautions -albuterol mdi, added azithromycin for elevated pro-calcitonin and questionable findings on CT above -Remdesevir had been discontinued ;however, with diagnosis above discussed with pulmonary Dr. Major. Restarted remdesivir and continued dexamethasone on 02/15/21 -Stopped dexamethasone today -covid-19 inflammatory marker lab checks per protocol Metabolic Encephalopathy 2/2 acute illness, dehydration, hypoglycemia and tra nsient hypoxemia -Not very communicative currently, improved anxiety and believed to be close to baseline currently Decreased PO intake likely 2/2 to acute illness -At baseline the patient's eats very slowly and has to have someone willing to spend an extended period of time with her, quick tries to help her eat do not work with her according to prior staff. He is also very hard of hearing so so meone helping her eat meats. -Also has had poor PO intake of medications as well but this seems to be slightly improved today -Nursing has tried encouraging but I suggested someone to come and help sit with her while she feeds, bilingual social worker and into this capability for us. We have been unsuccessful in this matter with both [facility] and the hospital. -D/w brother and POA (Karthik) and if artificial means of nutrition is needed, can discuss in coming days. -For now, c/w encouraging and with D5/0.45% fluids Hypoglycemia 2/2 poor PO in setting of covid-19 infection -BS 82-94 today, not taking good oral intake -continue IVF as D51/2 NS at 75cc/hr until PO is appropriate -regular diet -Hypoglycemic protocol in place -Will need nutritional assessment at day 7 E. coli UTI -UCx in chart -Has been on ceftriaxone (Day 4) -Bcx NG Leukocytosis likely steroid induced, UTI, questionable pneumonia -Improving slowly -Known COVID 19 and UTI; possible superimposed pneumonia -CTA chest: see above -Procalcitonin now high , previously low -C/w only ceftriaxone and azithromycin- to d/w Dr. Campuzano 02/18/21 to see if this is needed to be continued with no respiratory symptoms but abnormal imaging. Hypomagnesemia likely 2/2 to decreased PO intake -Replace PRN Hypokalemia likely 2/2 to decreased PO intake -Replace PRN B/l pleural effusions -Imaging above -On RA -If worsens O2 status, consider diuresis intermittent and stopping fluids. Anemia / Thalassemia trait -monitor daily CBC Developmental Disability -More awake now -Encourage PO and home meds. in the meantime switched essential meds to IV and [place] including benzo, synthroid and laxative. Hypothyroidism -continue home Levothyroxine Chronic Constipation -continue home regimen DVT ppx w Lovenox QD Resolved: Prerenal JACOB: likey due to poor PO intake and COVID Disposition: Plan is to return to [facility] when appropriate. PT/OT VS, I&O, 24H, Fishbone Vital Signs/I&O Vital Signs Date Time Temp Pulse Resp B/P (MAP) Pulse Ox O2 Delivery O2 Flow Rate FiO2 02/17/21 13:24 96.3 92 22 124/72 (89) 95 Room Air 02/13/21 04:00 2.0 I&O- Last 24 Hours up to 6 AM 02/17/21 06:00 Intake Total 2905 ml Output Total 400 ml Balance 2505 ml Laboratory Data 24H LABS Laboratory Tests 2 02/17/21 03:50: 02/17/21 05:50: Nucleated Red Blood Cells % (auto) 0.0, Anion Gap 5L, Glomerular Filtration Rate > 60.0, Calcium Level 8.6, Magnesium Level 1.8 02/17/21 10:35: CBC/BMP Laboratory Tests 02/17/21 05:50 Microbiology Microbiology 02/15/21 Blood Culture - Preliminary, Resulted No Growth after 48 hours. All Specime... 02/15/21 Blood Culture - Preliminary, Resulted No Growth after 48 hours. All Specime... 02/13/21 Urine Culture - Final, Complete Escherichia Coli 02/13/21 Blood Culture - Preliminary, Resulted No Growth after 72 hours. All specime... 02/12/21 Respiratory Virus Panel (PCR) ([facility]) - Final, Complete SARS-CoV-2 (COVID 19) Ana Naik MD Feb 17, 2021 20:54
[2021-02-17] MEDS: LACTULOSE 20 GM/30 ML SYRUP UD PO SCH (22:02)
[2021-02-17] MEDS: traMADol ER 100MG TABLET (ULTRAM ER) PO SCH (22:05)
[2021-02-17] MEDS: MONTELUKAST 10 MG TAB PO SCH (22:06)
[2021-02-17] MEDS: cefTRIAXone SOD 1 GM in D5W MINI-BAG PLUS 50 ML IV SCH (22:13)
[2021-02-18] VITALS (7 sets, daily range): BP systolic 118–139; BP diastolic 41–84; O2SAT 97–98
[2021-02-18] MEDS: ALBUTEROL SULFATE 2.5 MG/0.5 ML INH NEB SOLN NEB SCH ×6 (04:00→20:00)
[2021-02-18 08:35] LABS: HEMATOCRIT 29.1 % (36.0-47.0); MEAN CORPUSCULAR HEMOGLOBIN 29.2 pg (27.0-33.0); MEAN CORPUSCULAR HGB CONC 30.9 g/dl (32.0-36.5); MEAN CORPUSCULAR VOLUME 94.5 fl (80.0-96.0); PLATELET COUNT, AUTOMATED 293 10^3/uL (150-450); RED BLOOD COUNT 3.08 10^6/uL (4.00-5.40); WHITE BLOOD COUNT 9.2 10^3/uL (4.0-10.0)
[2021-02-18 08:41] LABS: INR 1.06; PROTHROMBIN TIME 14.2 SECONDS (12.7-14.5)
[2021-02-18 08:42] LABS: PARTIAL THROMBOPLASTIN TIME 44.2 SECONDS (25.9-37.0)
[2021-02-18 08:56] LABS: ALBUMIN 2.1 GM/DL (3.2-5.2); ALT/SGPT 43 U/L (12-78); BILIRUBIN,DIRECT < 0.1 MG/DL (0.0-0.2); BILIRUBIN,TOTAL 0.3 MG/DL (0.2-1.0); BLOOD UREA NITROGEN 5 MG/DL (7-18); CALCIUM LEVEL 9.3 MG/DL (8.5-10.1); CARBON DIOXIDE LEVEL 29 MEQ/L (21-32); CHLORIDE LEVEL 111 MEQ/L (98-107); CPK CREATINE PHOSPHOKINASE 74 U/L (26-192); CREATININE FOR GFR 0.71 MG/DL (0.55-1.30); FERRITIN 933 NG/ML (8-252); GLOMERULAR FILTRATION RATE > 60.0 (>51); GLUCOSE, FASTING 83 MG/DL (70-100); LDH LACTATE DEHYDROGENASE 161 U/L (84-246); MAGNESIUM LEVEL 1.7 MG/DL (1.8-2.4); NT-PRO BNP 274 PG/ML (<125); POTASSIUM SERUM 3.2 MEQ/L (3.5-5.1); SODIUM LEVEL 144 MEQ/L (136-145); TOTAL PROTEIN 6.3 GM/DL (6.4-8.2); TROPONIN I < 0.02 NG/ML (< 0.10)
[2021-02-18] MEDS: BISACODYL 10 MG SUPP PR SCH ×2 (09:00→21:00)
[2021-02-18] MEDS: MOM 30ML SUSPENSION UDC PO SCH (09:00)
[2021-02-18] MEDS: SENOKOT S TAB PO SCH (10:17)
[2021-02-18] MEDS: FOLIC ACID 1 MG TAB PO SCH (10:18)
[2021-02-18] MEDS: risperiDONE 1 MG TAB PO SCH ×2 (10:18→21:43)
[2021-02-18] MEDS: BACLOFEN 10 MG TAB PO SCH ×3 (10:18→21:44)
[2021-02-18] MEDS: risperiDONE 0.5 MG TAB PO SCH ×2 (10:18→21:43)
[2021-02-18] MEDS: TOPIRAMATE (TopAMAX) 100 MG TAB PO SCH ×2 (10:19→21:43)
[2021-02-18] MEDS: D5W/0.45% SODIUM CHLORIDE 1,000 ML IV SCH ×2 (10:19→21:45)
[2021-02-18] MEDS: ENOXAPARIN 40MG/0.4ML SYRINGE (J1650 PER 10MG) SC SCH (10:21)
[2021-02-18] MEDS: LEVOTHYROXINE 100MCG (0.1MG) VIAL IV SCH (10:21)
[2021-02-18] MEDS: LORazepam 2 MG/ML VIAL IV SCH ×2 (10:21→21:43)
[2021-02-18] MEDS: PANTOPRAZOLE 40MG VIAL (C9113 PER 1) IV SCH (10:22)
[2021-02-18] MEDS: FLEET ENEMA PR SCH (10:23)
--- NOTE | 2021-02-18 15:54 | IPNPDOC ---
Date Seen The patient was seen on 02/18/21. Progress Note SUBJECTIVE: Took medications this AM with poor feeding continuing. At this time, ordered nutritional assessment to see what would be needed for nutrition via NG tube and IV (TPN). No acute events overnight. OBJECTIVE: PE: VITALS: see below GENERAL APPEARANCE: awake and alert today, baseline not responding to questions HEENT: NCAT, EOMI, dry MM CARDIOVASCULAR: RRR, no m/r/g LUNGS: CTAB on RA, no crackles, wheezing or rhonchi ABDOMEN: contour flat, soft, normoactive sounds, no grimacing with deep palpation of lower extremities EXT: No edema, WWP NEURO: no focal deficits LABORATORY DATA: Please see below IMAGING: CT abd/pelvis: 1. Under distention versus mild wall thickening of the distal ascending, transverse and proximal descending colon. Mild nonspecific colitis cannot be excluded. 2. Confluent left greater than right lower lobe infiltrates with associated peribronchial thickening, concerning for pneumonia/aspiration. 3. Small pleural effusions. 4. Indeterminate 1.3 cm low-density splenic lesion, possibly a hemangioma. If clinically indicated, MRI may be obtained for further evaluation. 5. Additional findings, as above. CTA chest: 1. Bilateral multifocal airspace infiltrates both semi-solid and solid predominantly in the lower lung zones consistent with multifocal pneumonitis. Findings consistent with known Covid diagnosis. 2. Small bilateral pleural effusions. 3. There is no aortic dissection or aneurysm. 4. Well inflated lungs may indicate COPD. 5. There are no pulmonary emboli. MICROBIOLOGY: + COVID UCx E. coli Admission blood culture: NG to date blood cultures x 2 sets: NG to date ASSESSMENT: 50 yr old w developmental disability, hypothyroidism, debility & left sided hearing loss who is admitted for encephalopathy, hypotension, Moderna vaccinated, who was admitted with hypoxemia 2/2 COVID 19 infection, JACOB and dehydration. PLAN: COVID-19 infection with multifocal pneumonitis, possible PNA superimposed -WBC slightly improved further, procalcitonin increased from being low earlier -Saturating well on RA, has been afebrile -Contact & droplet precautions -Albuterol MDI -Discussed with ID. Will d/c azithromycin as patient has been doing well on only ceftriaxone for elevated pro-calcitonin and questionable findings on CT above -Remdesevir had been discontinued ;however, with diagnosis above discussed with pulmonary Dr. Major. Restarted remdesivir and continued dexamethasone on 02/15/21 -covid-19 inflammatory marker lab checks per protocol Metabolic Encephalopathy 2/2 acute illness, dehydration, hypoglycemia and gomez sient hypoxemia -More alert, responsive currently, improved anxiety and believed to be close to baseline currently Decreased PO intake likely 2/2 to acute illness -At baseline the patient's eats very slowly and has to have someone willing to spend an extended period of time with her, quick tries to help her eat do not work with her according to prior staff. She is also very hard of hearing so so meone helping her eat meats. -Also has had poor PO intake of medications as well but this seems to be slightly improved today -Nursing has tried encouraging but I suggested someone to come and help sit with her while she feeds, manager social work and into this capability for us. We have been unsuccessful in this matter with both [facility] and the hospital despite exhaustive measures to arrange. We are looking into other ways to get someone in to help feed for several hours during each meal. -Per nutrition, suggestions for artificial means of nutritional support given. Will need to discuss with brother and POA (Karthik) to see what his thoughts on this are. I also asked SW to reach out to [facility] (her current living facility) to see if they take patient with artificial nutrition needs, -For now, c/w encouraging and with D5/0.45% fluids Hypoglycemia 2/2 poor PO in setting of covid-19 infection -BS borderline, not taking good oral intake -continue IVF as D51/2 NS at 75cc/hr until PO is appropriate -regular diet -Hypoglycemic protocol in place -Will need nutritional assessment at day 7, currently day 6 E. coli UTI -UCx in chart -Has been on ceftriaxone (Day 5) -Bcx NG Leukocytosis likely steroid induced, UTI, questionable pneumonia -WBC wnl -Known COVID 19 and UTI; possible superimposed pneumonia -CTA chest: see above -Procalcitonin decreased -C/w only ceftriaxone and stopped azithromycin after d/w Dr. Campuzano Hypomagnesemia likely 2/2 to decreased PO intake -Replace PRN Hypokalemia likely 2/2 to decreased PO intake -Replace PRN B/l pleural effusions -Imaging above -On RA -If worsens O2 status, consider diuresis intermittent and stopping fluids. Anemia / Thalassemia trait -monitor daily CBC Developmental Disability -More awake now -Encourage PO and home meds. in the meantime switched essential meds to IV and DC including benzo, synthroid and laxative. Hypothyroidism -continue home Levothyroxine Chronic Constipation -continue home regimen DVT ppx w Lovenox QD Resolved: Prerenal JACOB: likey due to poor PO intake and COVID Disposition: Plan is to return to [facility] when appropriate. PT/OT VS, I&O, 24H, Fishbone Vital Signs/I&O Vital Signs Date Time Temp Pulse Resp B/P (MAP) Pulse Ox O2 Delivery O2 Flow Rate FiO2 02/18/21 12:52 96.5 91 18 126/84 (98) 96 Room Air 02/13/21 04:00 2.0 I&O- Last 24 Hours up to 6 AM 02/18/21 05:59 Intake Total 1270 ml Output Total 300 ml Balance 970 ml Laboratory Data 24H LABS Laboratory Tests 2 02/18/21 07:38: Nucleated Red Blood Cells % (auto) 0.2H, Prothrombin Time 14.2H, Prothromb Time International Ratio 1.06, Activated Partial Thromboplast Time 44.2H, Fibrinogen 426, Anion Gap 4L, Glomerular Filtration Rate > 60.0, Calcium Level 9.3, Magnesium Level 1.7L, Ferritin 933H, Total Bilirubin 0.3, Direct Bilirubin < 0.1, Aspartate Amino Transf (AST/SGOT) 22, Alanine Aminotransferase (ALT/SGPT) 43, Alkaline Phosphatase 140H, Lactate Dehydrogenase 161, Total Creatine Kinase 74, Troponin I < 0.02, FB-Opb-X-Type Natriuretic Peptide 274H, Total Protein 6 .3L, Albumin 2.1L, Albumin/Globulin Ratio 0.5L, Procalcitonin 0.30 CBC/BMP Laboratory Tests 02/18/21 07:38 Microbiology Microbiology 02/15/21 Blood Culture - Preliminary, Resulted No Growth after 72 hours. All specime... 02/15/21 Blood Culture - Preliminary, Resulted No Growth after 72 hours. All specime... 02/13/21 Urine Culture - Final, Complete Escherichia Coli 02/13/21 Blood Culture - Final, Complete NO GROWTH AFTER 5 DAYS 02/12/21 Respiratory Virus Panel (PCR) ([facility]) - Final, Complete SARS-CoV-2 (COVID 19) Ana Naik MD Feb 18, 2021 15:54
[2021-02-18 17:08] LABS: MYCOPLASMA PNEUMONIAE IgG 493 U/mL (0-99); MYCOPLASMA PNEUMONIAE IgM <770 U/mL (0-769)
[2021-02-18] MEDS: DULoxetine 30MG CAPSULE (CYMBALTA) PO SCH (17:29)
[2021-02-18] MEDS: KCL 10MEQ/100ML SWI (KRUN) 10 MEQ in IV 1 EA IV SCH ×4 (17:30→21:13)
[2021-02-18] MEDS ORDERED: MAG SULF 1GM/100ML (MAG RUN) 1 GM in IV 1 EA IV ONE (21:00)
[2021-02-18] MEDS: LACTULOSE 20 GM/30 ML SYRUP UD PO SCH (21:00)
[2021-02-18] MEDS: MONTELUKAST 10 MG TAB PO SCH (21:43)
[2021-02-18] MEDS: traMADol ER 100MG TABLET (ULTRAM ER) PO SCH (21:44)
[2021-02-18] MEDS: cefTRIAXone SOD 1 GM in D5W MINI-BAG PLUS 50 ML IV SCH (23:36)
[2021-02-19] VITALS (8 sets, daily range): BP systolic 113–139; BP diastolic 53–76; O2SAT 95–100
[2021-02-19] MEDS: ALBUTEROL SULFATE 2.5 MG/0.5 ML INH NEB SOLN NEB SCH ×6 (03:05→18:27)
[2021-02-19 06:50] LABS: HEMATOCRIT 25.7 % (36.0-47.0); HEMOGLOBIN 7.9 g/dl (12.0-15.5); MEAN CORPUSCULAR HEMOGLOBIN 29.2 pg (27.0-33.0); MEAN CORPUSCULAR HGB CONC 30.7 g/dl (32.0-36.5); MEAN CORPUSCULAR VOLUME 94.8 fl (80.0-96.0); PLATELET COUNT, AUTOMATED 335 10^3/uL (150-450); RED BLOOD COUNT 2.71 10^6/uL (4.00-5.40)
[2021-02-19 07:25] LABS: ALBUMIN 1.9 GM/DL (3.2-5.2); ALT/SGPT 39 U/L (12-78); BILIRUBIN,TOTAL 0.2 MG/DL (0.2-1.0); BLOOD UREA NITROGEN 5 MG/DL (7-18); CALCIUM LEVEL 8.2 MG/DL (8.5-10.1); CARBON DIOXIDE LEVEL 30 MEQ/L (21-32); CHLORIDE LEVEL 109 MEQ/L (98-107); GLOMERULAR FILTRATION RATE > 60.0 (>51); GLUCOSE, FASTING 82 MG/DL (70-100); MAGNESIUM LEVEL 1.7 MG/DL (1.8-2.4); POTASSIUM SERUM 3.9 MEQ/L (3.5-5.1); SODIUM LEVEL 143 MEQ/L (136-145); TOTAL PROTEIN 5.3 GM/DL (6.4-8.2)
[2021-02-19] MEDS: FLEET ENEMA PR SCH (08:13)
[2021-02-19] MEDS: BISACODYL 10 MG SUPP PR SCH ×2 (08:13→21:00)
[2021-02-19] MEDS: risperiDONE 0.5 MG TAB PO SCH ×2 (08:36→20:59)
[2021-02-19] MEDS: TOPIRAMATE (TopAMAX) 100 MG TAB PO SCH ×2 (08:36→20:59)
[2021-02-19] MEDS: risperiDONE 1 MG TAB PO SCH ×2 (08:36→20:59)
[2021-02-19] MEDS: FOLIC ACID 1 MG TAB PO SCH (08:36)
[2021-02-19] MEDS: SENOKOT S TAB PO SCH (08:36)
[2021-02-19] MEDS: PANTOPRAZOLE 40MG VIAL (C9113 PER 1) IV SCH (08:37)
[2021-02-19] MEDS: LORazepam 2 MG/ML VIAL IV SCH ×2 (08:37→20:59)
[2021-02-19] MEDS: ENOXAPARIN 40MG/0.4ML SYRINGE (J1650 PER 10MG) SC SCH (08:37)
[2021-02-19] MEDS: LEVOTHYROXINE 100MCG (0.1MG) VIAL IV SCH (08:37)
[2021-02-19] MEDS: BACLOFEN 10 MG TAB PO SCH ×3 (08:38→20:59)
[2021-02-19] MEDS: MOM 30ML SUSPENSION UDC PO SCH (09:00)
[2021-02-19] MEDS: D5W/0.45% SODIUM CHLORIDE 1,000 ML IV SCH ×2 (10:54→20:59)
[2021-02-19] MEDS: MAGNESIUM OXIDE 400MG TAB (MAG-OX) PO SCH ×2 (11:22→21:00)
[2021-02-19] MEDS: DULoxetine 30MG CAPSULE (CYMBALTA) PO SCH (16:23)
--- NOTE | 2021-02-19 20:23 | IPNPDOC ---
Date Seen The patient was seen on 02/19/21. Progress Note SUBJECTIVE: Per nursing the patient is continuing to take medications and ate up to 50% of meals with staff that was able to sit with her for extended period time. H&H slightly lower at 7.9/25.9, occult blood ordered. Tomorrow will stop D5 to see how blood sugars fair with what she is eating with meals. OBJECTIVE: PE: VITALS: see below GENERAL APPEARANCE: awake and alert today, baseline not responding to questions HEENT: NCAT, EOMI, dry MM CARDIOVASCULAR: RRR, no m/r/g LUNGS: CTAB on RA, no crackles, wheezing or rhonchi ABDOMEN: contour flat, soft, normoactive sounds, no grimacing with deep palpation of lower extremities EXT: No edema, WWP NEURO: no focal deficits LABORATORY DATA: Please see below IMAGING: CT abd/pelvis: 1. Under distention versus mild wall thickening of the distal ascending, transverse and proximal descending colon. Mild nonspecific colitis cannot be excluded. 2. Confluent left greater than right lower lobe infiltrates with associated peribronchial thickening, concerning for pneumonia/aspiration. 3. Small pleural effusions. 4. Indeterminate 1.3 cm low-density splenic lesion, possibly a hemangioma. If clinically indicated, MRI may be obtained for further evaluation. 5. Additional findings, as above. CTA chest: 1. Bilateral multifocal airspace infiltrates both semi-solid and solid predominantly in the lower lung zones consistent with multifocal pneumonitis. Findings consistent with known Covid diagnosis. 2. Small bilateral pleural effusions. 3. There is no aortic dissection or aneurysm. 4. Well inflated lungs may indicate COPD. 5. There are no pulmonary emboli. MICROBIOLOGY: + COVID UCx E. coli Admission blood culture: NG to date blood cultures x 2 sets: NG to date ASSESSMENT: 50 yr old w developmental disability, hypothyroidism, debility & left sided hearing loss who is admitted for encephalopathy, hypotension, Moderna vaccinated, who was admitted with hypoxemia 2/2 COVID 19 infection, JACOB and dehydration. PLAN: Anemia / Thalassemia trait -H/H lower, could be delusional -Follow-up occult blood -monitor daily CBC Decreased PO intake likely 2/2 to acute illness, combined with needing someone to help feed her for extended time -Today with sitter the patient ate up to 50% of her meals, a huge improvement from the days of her hospitalization prior -At baseline the patient's eats very slowly and has to have someone willing to spend an extended period of time with her, quick tries to help her eat do not work with her according to prior staff. She is also very hard of hearing so someone helping her eat meats. -Also has had poor PO intake of medications as well but this seems to be slightly improved today -Will encourage nursing to call staffing first thing in the morning every day she is here to have a sitter spend time with her to feed her. -If expended feeding with sitter fails,per nutrition, suggestions for artificial means of nutritional support given. Will need to discuss with brother and POA (Tiffanie wiseman) to see what his thoughts on this are. I also asked SW to reach out to [facility] (her current living facility) to see if they take patient with artificial nutrition needs, -For now, c/w encouraging. Stopping D5/0.45% fluids 02/20/2021 to see how her blood sugars fair without supplement glucose. COVID-19 infection with multifocal pneumonitis, possible PNA superimposed -WBC within normal limits -Saturating well on RA, has been afebrile -Contact & droplet precautions -Albuterol MDI -Discussed with ID. Will d/c azithromycin as patient has been doing well on only ceftriaxone (. 02/20/2021) for elevated pro-calcitonin and questionable findings on CT above -Remdesevir had been discontinued ;however, with diagnosis above discussed with pulmonary Dr. Major. Completed remdesevir -covid-19 inflammatory marker lab checks per protocol Hypoglycemia 2/2 poor PO in setting of covid-19 infection -BS borderline, not taking good oral intake -continue IVF as D51/2 NS at 75cc/hr until PO is appropriate -regular diet -Hypoglycemic protocol in place -Will need nutritional assessment at day 7, currently day 6 E. coli UTI -UCx in chart -Treated with ceftriaxone -Bcx NG Hypomagnesemia likely 2/2 to decreased PO intake -Started on daily supplement -Replace PRN Hypokalemia likely 2/2 to decreased PO intake -Replace PRN B/l pleural effusions -Imaging above -On RA -If worsens O2 status, consider diuresis intermittent and stopping fluids. Developmental Disability -More awake now -Encourage PO and home meds. in the meantime switched essential meds to IV and NH including benzo, synthroid and laxative. Hypothyroidism -continue home Levothyroxine Chronic Constipation -continue home regimen DVT ppx w Lovenox QD Resolved: Prerenal JACOB: likey due to poor PO intake and COVID Metabolic Encephalopathy 2/2 acute illness, dehydration, hypoglycemia and transient hypoxemia Disposition: Plan is to return to [facility] when appropriate. PT/OT VS, I&O, 24H, Fishbone Vital Signs/I&O Vital Signs Date Time Temp Pulse Resp B/P (MAP) Pulse Ox O2 Delivery O2 Flow Rate FiO2 02/19/21 16:00 100 Room Air 02/19/21 14:00 99.4 73 21 139/76 (97) 02/13/21 04:00 2.0 I&O- Last 24 Hours up to 6 AM 02/19/21 06:00 Intake Total 1356 ml Output Total 2600 ml Balance -1244 ml Laboratory Data 24H LABS Laboratory Tests 2 02/19/21 05:54: Nucleated Red Blood Cells % (auto) 0.2H, Anion Gap 4L, Glomerular Filtration Rate > 60.0, Calcium Level 8.2L, Magnesium Level 1.7L, Total Bilirubin 0.2, Aspartate Amino Transf (AST/SGOT) 34, Alanine Aminotransferase (ALT/SGPT) 39, Alkaline Phosphatase 122H, Total Protein 5.3L, Albumin 1.9L, Albumin/Globulin Ratio 0.6L CBC/BMP Laboratory Tests 02/19/21 05:54 Microbiology Microbiology 02/15/21 Blood Culture - Preliminary, Resulted No Growth after 72 hours. All specime... 02/15/21 Blood Culture - Preliminary, Resulted No Growth after 72 hours. All specime... 02/13/21 Urine Culture - Final, Complete Escherichia Coli 02/13/21 Blood Culture - Final, Complete NO GROWTH AFTER 5 DAYS 02/12/21 Respiratory Virus Panel (PCR) ([facility]) - Final, Complete SARS-CoV-2 (COVID 19) Ana Naik MD Feb 19, 2021 20:23
[2021-02-19] MEDS: MONTELUKAST 10 MG TAB PO SCH (20:59)
[2021-02-19] MEDS: traMADol ER 100MG TABLET (ULTRAM ER) PO SCH (20:59)
[2021-02-19] MEDS: LACTULOSE 20 GM/30 ML SYRUP UD PO SCH (21:00)
[2021-02-19] MEDS: cefTRIAXone SOD 1 GM in D5W MINI-BAG PLUS 50 ML IV SCH (23:02)
[2021-02-20 02:00] VITALS: BP 132/78
[2021-02-20] MEDS: ALBUTEROL SULFATE 2.5 MG/0.5 ML INH NEB SOLN NEB SCH ×7 (04:00→23:33)
[2021-02-20 05:31] VITALS: BP 114/65
[2021-02-20 06:37] LABS: HEMATOCRIT 27.4 % (36.0-47.0); HEMOGLOBIN 8.4 g/dl (12.0-15.5); MEAN CORPUSCULAR HEMOGLOBIN 29.3 pg (27.0-33.0); MEAN CORPUSCULAR HGB CONC 30.7 g/dl (32.0-36.5); MEAN CORPUSCULAR VOLUME 95.5 fl (80.0-96.0); PLATELET COUNT, AUTOMATED 405 10^3/uL (150-450); RED BLOOD COUNT 2.87 10^6/uL (4.00-5.40); WHITE BLOOD COUNT 7.7 10^3/uL (4.0-10.0)
[2021-02-20 06:51] LABS: ALT/SGPT 40 U/L (12-78); BILIRUBIN,TOTAL 0.2 MG/DL (0.2-1.0); BLOOD UREA NITROGEN 3 MG/DL (7-18); CALCIUM LEVEL 8.8 MG/DL (8.5-10.1); CARBON DIOXIDE LEVEL 27 MEQ/L (21-32); CHLORIDE LEVEL 114 MEQ/L (98-107); CREATININE FOR GFR 0.54 MG/DL (0.55-1.30); GLOMERULAR FILTRATION RATE > 60.0 (>51); GLUCOSE, FASTING 97 MG/DL (70-100); MAGNESIUM LEVEL 1.9 MG/DL (1.8-2.4); POTASSIUM SERUM 4.2 MEQ/L (3.5-5.1); SODIUM LEVEL 147 MEQ/L (136-145); TOTAL PROTEIN 5.3 GM/DL (6.4-8.2)
[2021-02-20 08:00] VITALS: O2SAT 95
[2021-02-20] MEDS: FLEET ENEMA PR SCH (08:50)
[2021-02-20] MEDS: LORazepam 2 MG/ML VIAL IV SCH ×2 (09:03→20:49)
[2021-02-20] MEDS: risperiDONE 1 MG TAB PO SCH ×2 (09:03→20:50)
[2021-02-20] MEDS: LEVOTHYROXINE 100MCG (0.1MG) VIAL IV SCH (09:03)
[2021-02-20] MEDS: TOPIRAMATE (TopAMAX) 100 MG TAB PO SCH ×2 (09:03→20:49)
[2021-02-20] MEDS: PANTOPRAZOLE 40MG VIAL (C9113 PER 1) IV SCH (09:03)
[2021-02-20] MEDS: BISACODYL 10 MG SUPP PR SCH ×2 (09:03→20:50)
[2021-02-20] MEDS: risperiDONE 0.5 MG TAB PO SCH ×2 (09:03→20:49)
[2021-02-20] MEDS: BACLOFEN 10 MG TAB PO SCH ×3 (09:03→20:49)
[2021-02-20] MEDS: FOLIC ACID 1 MG TAB PO SCH (09:03)
[2021-02-20] MEDS: ENOXAPARIN 40MG/0.4ML SYRINGE (J1650 PER 10MG) SC SCH (09:04)
[2021-02-20] MEDS: MOM 30ML SUSPENSION UDC PO SCH (09:04)
[2021-02-20] MEDS: SENOKOT S TAB PO SCH (09:04)
[2021-02-20] MEDS: MAGNESIUM OXIDE 400MG TAB (MAG-OX) PO SCH ×2 (09:04→20:49)
[2021-02-20 12:00] VITALS: O2SAT 95
[2021-02-20] MEDS: D5W/0.45% SODIUM CHLORIDE 1,000 ML IV SCH (13:34)
[2021-02-20 14:00] VITALS: BP 114/68
[2021-02-20] MEDS: DULoxetine 30MG CAPSULE (CYMBALTA) PO SCH (16:50)
--- NOTE | 2021-02-20 18:04 | IPNPDOC ---
Date Seen The patient was seen on 02/20/21. Progress Note SUBJECTIVE: Sitter did not come to feed today. Per nurse, she ate entire lunch with 2 cup of fluid. Tomorrow will stop D5 to see how blood sugars fair with what she is eating with meals. OBJECTIVE: PE: VITALS: see below GENERAL APPEARANCE: awake and alert today,happy and smiling today. HEENT: NCAT, EOMI, dry MM CARDIOVASCULAR: RRR, no m/r/g LUNGS: CTAB on RA, no crackles, wheezing or rhonchi ABDOMEN: contour flat, soft, normoactive sounds, no grimacing with deep palpation of lower extremities EXT: No edema, WWP NEURO: no focal deficits LABORATORY DATA: Please see below IMAGING: CT abd/pelvis: 1. Under distention versus mild wall thickening of the distal ascending, transverse and proximal descending colon. Mild nonspecific colitis cannot be excluded. 2. Confluent left greater than right lower lobe infiltrates with associated peribronchial thickening, concerning for pneumonia/aspiration. 3. Small pleural effusions. 4. Indeterminate 1.3 cm low-density splenic lesion, possibly a hemangioma. If clinically indicated, MRI may be obtained for further evaluation. 5. Additional findings, as above. CTA chest: 1. Bilateral multifocal airspace infiltrates both semi-solid and solid predominantly in the lower lung zones consistent with multifocal pneumonitis. Findings consistent with known Covid diagnosis. 2. Small bilateral pleural effusions. 3. There is no aortic dissection or aneurysm. 4. Well inflated lungs may indicate COPD. 5. There are no pulmonary emboli. MICROBIOLOGY: + COVID UCx E. coli Admission blood culture: NG to date blood cultures x 2 sets: NG to date ASSESSMENT: 50 yr old w developmental disability, hypothyroidism, debility & left sided hearing loss who is admitted for encephalopathy, hypotension, Moderna vaccinated, who was admitted with hypoxemia 2/2 COVID 19 infection, JACOB and dehydration. PLAN: Anemia / Thalassemia trait -H/H slightly improved, could be dilutional with it being low -Follow-up occult blood -monitor daily CBC Decreased PO intake likely 2/2 to acute illness, combined with needing someone to help feed her for extended time -nursing says lunch went well, did not eat breakfast -At baseline the patient's eats very slowly and has to have someone willing to spend an extended period of time with her, quick tries to help her eat do not work with her according to prior staff. She is also very hard of hearing so someone helping her eat meats. -Better intake of medications with nursing -Will encourage nursing to call staffing first thing in the morning every day she is here to have a sitter spend time with her to feed her. -If expended feeding with sitter fails,per nutrition, suggestions for artificial means of nutritional support given. Will need to discuss with brother and POA (Karthik) to see what his thoughts on this are. I also asked SW to reach out to [facility] (her current living facility) to see if they take patient with artificial nutrition needs, -For now, c/w encouraging. Stopping D5/0.45% fluids 02/21/2021 to see how her blood sugars fair without supplement glucose. COVID-19 infection with multifocal pneumonitis, possible PNA superimposed -WBC within normal limits -Saturating well on RA, has been afebrile -Contact & droplet precautions -Albuterol MDI -Discussed with ID. D/renato azithromycin as patient has been doing well on only ceftriaxone for elevated pro-calcitonin and questionable findings on CT above -Remdesevir had been discontinued ;however, with diagnosis above discussed with pulmonary Dr. Major. Completed remdesevir -covid-19 inflammatory marker lab checks per protocol Hypoglycemia 2/2 poor PO in setting of covid-19 infection -BS borderline, not taking good oral intake -continue IVF as D51/2 NS at 75cc/hr until PO is appropriate -regular diet -Hypoglycemic protocol in place -Will need nutritional assessment at day 7, currently day 6 E. coli UTI -UCx in chart -Treated with ceftriaxone -Bcx NG Hypomagnesemia likely 2/2 to decreased PO intake -Started on daily supplement -Replace PRN Hypokalemia likely 2/2 to decreased PO intake -Replace PRN B/l pleural effusions -Imaging above -On RA -If worsens O2 status, consider diuresis intermittent and stopping fluids. Developmental Disability -More awake now -Encourage PO and home meds. in the meantime switched essential meds to IV and TN including benzo, synthroid and laxative. Hypothyroidism -continue home Levothyroxine Chronic Constipation -continue home regimen DVT ppx w Lovenox QD Resolved: Prerenal JACOB: likey due to poor PO intake and COVID Metabolic Encephalopathy 2/2 acute illness, dehydration, hypoglycemia and transient hypoxemia Disposition: Plan is to return to [facility] when appropriate. PT/OT VS, I&O, 24H, Fishbone Vital Signs/I&O Vital Signs Date Time Temp Pulse Resp B/P (MAP) Pulse Ox O2 Delivery O2 Flow Rate FiO2 02/20/21 14:00 97.6 90 15 114/68 (83) 97 Room Air I&O- Last 24 Hours up to 6 AM 02/20/21 06:00 Intake Total 0 ml Output Total 3600 ml Balance -3600 ml Laboratory Data 24H LABS Laboratory Tests 2 02/20/21 05:44: Nucleated Red Blood Cells % (auto) 0.0, Anion Gap 6L, Glomerular Filtration Rate > 60.0, Calcium Level 8.8, Magnesium Level 1.9, Total Bilirubin 0.2, Aspartate Amino Transf (AST/SGOT) 38H, Alanine Aminotransferase (ALT/SGPT) 40, Alkaline Phosphatase 122H, Total Protein 5.3L, Albumin 2.0L, Albumin/Globulin Ratio 0.6L CBC/BMP Laboratory Tests 02/20/21 05:44 Microbiology Microbiology 02/20/21 Stool Occult Blood ([facility]), Received Pending 02/15/21 Blood Culture - Final, Complete NO GROWTH AFTER 5 DAYS 02/15/21 Blood Culture - Final, Complete NO GROWTH AFTER 5 DAYS 02/13/21 Urine Culture - Final, Complete Escherichia Coli 02/13/21 Blood Culture - Final, Complete NO GROWTH AFTER 5 DAYS 02/12/21 Respiratory Virus Panel (PCR) ([facility]) - Final, Complete SARS-CoV-2 (COVID 19) Ana Naik MD Feb 20, 2021 18:04
[2021-02-20 20:00] VITALS: BP 107/69; O2SAT 100
[2021-02-20] MEDS: traMADol ER 100MG TABLET (ULTRAM ER) PO SCH (20:49)
[2021-02-20] MEDS: MONTELUKAST 10 MG TAB PO SCH (20:50)
[2021-02-20] MEDS: LACTULOSE 20 GM/30 ML SYRUP UD PO SCH (20:50)
[2021-02-20] MEDS: cefTRIAXone SOD 1 GM in D5W MINI-BAG PLUS 50 ML IV SCH (23:10)
[2021-02-21] VITALS (7 sets, daily range): BP systolic 111–128; BP diastolic 58–74; O2SAT 95–99
[2021-02-21] MEDS: D5W/0.45% SODIUM CHLORIDE 1,000 ML IV SCH (01:37)
[2021-02-21] MEDS: ALBUTEROL SULFATE 2.5 MG/0.5 ML INH NEB SOLN NEB SCH ×3 (04:00→13:11)
[2021-02-21 07:35] LABS: HEMATOCRIT 29.5 % (36.0-47.0); MEAN CORPUSCULAR HEMOGLOBIN 29.3 pg (27.0-33.0); MEAN CORPUSCULAR HGB CONC 30.5 g/dl (32.0-36.5); MEAN CORPUSCULAR VOLUME 96.1 fl (80.0-96.0); PLATELET COUNT, AUTOMATED 562 10^3/uL (150-450); RED BLOOD COUNT 3.07 10^6/uL (4.00-5.40); WHITE BLOOD COUNT 7.4 10^3/uL (4.0-10.0)
[2021-02-21 08:06] LABS: ALBUMIN 1.9 GM/DL (3.2-5.2); ALT/SGPT 36 U/L (12-78); BILIRUBIN,TOTAL 0.2 MG/DL (0.2-1.0); BLOOD UREA NITROGEN 3 MG/DL (7-18); CALCIUM LEVEL 8.7 MG/DL (8.5-10.1); CARBON DIOXIDE LEVEL 28 MEQ/L (21-32); CHLORIDE LEVEL 111 MEQ/L (98-107); CREATININE FOR GFR 0.65 MG/DL (0.55-1.30); GLOMERULAR FILTRATION RATE > 60.0 (>51); GLUCOSE, FASTING 90 MG/DL (70-100); POTASSIUM SERUM 3.7 MEQ/L (3.5-5.1); SODIUM LEVEL 142 MEQ/L (136-145); TOTAL PROTEIN 6.3 GM/DL (6.4-8.2)
[2021-02-21] MEDS: MOM 30ML SUSPENSION UDC PO SCH (09:00)
[2021-02-21] MEDS: FLEET ENEMA PR SCH (09:00)
[2021-02-21] MEDS: SENOKOT S TAB PO SCH (09:00)
[2021-02-21] MEDS: BISACODYL 10 MG SUPP PR SCH ×2 (09:00→21:30)
[2021-02-21] MEDS: risperiDONE 0.5 MG TAB PO SCH ×2 (09:10→21:29)
[2021-02-21] MEDS: FOLIC ACID 1 MG TAB PO SCH (09:10)
[2021-02-21] MEDS: TOPIRAMATE (TopAMAX) 100 MG TAB PO SCH ×2 (09:10→21:30)
[2021-02-21] MEDS: MAGNESIUM OXIDE 400MG TAB (MAG-OX) PO SCH ×2 (09:11→21:30)
[2021-02-21] MEDS: risperiDONE 1 MG TAB PO SCH ×2 (09:11→21:28)
[2021-02-21] MEDS: PANTOPRAZOLE 40MG VIAL (C9113 PER 1) IV SCH (09:11)
[2021-02-21] MEDS: BACLOFEN 10 MG TAB PO SCH ×3 (09:11→21:29)
[2021-02-21] MEDS: LORazepam 2 MG/ML VIAL IV SCH (09:12)
[2021-02-21] MEDS: LEVOTHYROXINE 100MCG (0.1MG) VIAL IV SCH (09:12)
[2021-02-21] MEDS: ENOXAPARIN 40MG/0.4ML SYRINGE (J1650 PER 10MG) SC SCH (09:12)
[2021-02-21] MEDS: DULoxetine 30MG CAPSULE (CYMBALTA) PO SCH (17:09)
--- NOTE | 2021-02-21 18:48 | IPNPDOC ---
Date Seen The patient was seen on 02/21/21. Progress Note SUBJECTIVE: Took off D5 IVFs today, seeing how she does with glucose. Lowest so far 72 but mostly staying in 80-90's. No s/s of hypoglycemia. OBJECTIVE: PE: VITALS: see below GENERAL APPEARANCE: awake and alert today,happy and smiling again today HEENT: NCAT, EOMI, dry MM CARDIOVASCULAR: RRR, no m/r/g LUNGS: CTAB on RA, no crackles, wheezing or rhonchi ABDOMEN: contour flat, soft, normoactive sounds, no grimacing with deep palpation of lower extremities EXT: No edema, WWP NEURO: no focal deficits LABORATORY DATA: Please see below IMAGING: CT abd/pelvis: 1. Under distention versus mild wall thickening of the distal ascending, transverse and proximal descending colon. Mild nonspecific colitis cannot be excluded. 2. Confluent left greater than right lower lobe infiltrates with associated peribronchial thickening, concerning for pneumonia/aspiration. 3. Small pleural effusions. 4. Indeterminate 1.3 cm low-density splenic lesion, possibly a hemangioma. If clinically indicated, MRI may be obtained for further evaluation. 5. Additional findings, as above. CTA chest: 1. Bilateral multifocal airspace infiltrates both semi-solid and solid predominantly in the lower lung zones consistent with multifocal pneumonitis. Findings consistent with known Covid diagnosis. 2. Small bilateral pleural effusions. 3. There is no aortic dissection or aneurysm. 4. Well inflated lungs may indicate COPD. 5. There are no pulmonary emboli. MICROBIOLOGY: + COVID UCx E. coli Admission blood culture: NG to date blood cultures x 2 sets: NG to date ASSESSMENT: 50 yr old w developmental disability, hypothyroidism, debility & left sided hearing loss who is admitted for encephalopathy, hypotension, Moderna vaccinated, who was admitted with hypoxemia 2/2 COVID 19 infection, JACOB and dehydration. PLAN: Anemia / Thalassemia trait -H/H slightly improved -occult blood neg -monitor daily CBC Decreased PO intake likely 2/2 to acute illness, combined with needing someone to help feed her for extended time -Eating slightly better with staff -At baseline the patient's eats very slowly and has to have someone willing to spend an extended period of time with her, quick tries to help her eat do not work with her according to prior staff. She is also very hard of hearing so someone helping her eat meats. -Will encourage nursing to call staffing first thing in the morning every day she is here to have a sitter spend time with her to feed her. -If extended feeding with sitter fails or if patient drops without being on D5 IVFs, per nutrition, suggestions for artificial means of nutritional support given. Will need to discuss with brother and POA (Karthik) to see what his thoughts on this are. I also asked SW to reach out to [facility] (her current living facility) to see if they take patient with artificial nutrition needs, -For now, c/w encouraging. Stopped D5/0.45% fluids 02/21/2021 to see how her blood sugars fair without supplement glucose. Hypoglycemia 2/2 poor PO in setting of covid-19 infection -BS borderline at 72-90's after stopping D5 IVFs, not taking good oral intake for every meal. Per staff at [facility], this is how she is at the home as well -C/w regular diet, Q3H FS, hypoglycemic protocol in place COVID-19 infection with multifocal pneumonitis, possible PNA superimposed -WBC within normal limits -Saturating well on RA, has been afebrile -Contact & droplet precautions -Albuterol MDI -Discussed with ID. D/renato azithromycin as patient has been doing well on only ceftriaxone for elevated pro-calcitonin and questionable findings on CT above -Remdesevir had been discontinued ;however, with diagnosis above discussed with pulmonary Dr. Major. Completed remdesevir -covid-19 inflammatory marker lab checks per protocol E. coli UTI -UCx in chart -Treated with ceftriaxone -Bcx NG Hypomagnesemia likely 2/2 to decreased PO intake -Started on daily supplement -Replace PRN Hypokalemia likely 2/2 to decreased PO intake -Replace PRN B/l pleural effusions -Imaging above -On RA -If worsens O2 status, consider diuresis intermittent and stopping fluids. Developmental Disability -More awake now -Encourage PO and home meds. in the meantime switched essential meds to IV and ID including benzo, synthroid and laxative. Hypothyroidism -continue home Levothyroxine Chronic Constipation -continue home regimen DVT ppx w Lovenox QD Resolved: Prerenal JACOB: likey due to poor PO intake and COVID Metabolic Encephalopathy 2/2 acute illness, dehydration, hypoglycemia and transient hypoxemia Disposition: If she does well with FS with feedings and off D5, she can likely be discharged back to [facility]. Would confirm with SW. PT/OT VS, I&O, 24H, Fishbone Vital Signs/I&O Vital Signs Date Time Temp Pulse Resp B/P (MAP) Pulse Ox O2 Delivery O2 Flow Rate FiO2 02/21/21 14:00 96.8 68 18 128/71 (90) 100 Room Air I&O- Last 24 Hours up to 6 AM 02/21/21 06:00 Intake Total 1500 ml Output Total 1375 ml Balance 125 ml Laboratory Data 24H LABS Laboratory Tests 2 02/21/21 06:47: Nucleated Red Blood Cells % (auto) 0.0, Anion Gap 3L, Glomerular Filtration Rate > 60.0, Calcium Level 8.7, Total Bilirubin 0.2, Aspartate Amino Transf (AST/SGOT) 30, Alanine Aminotransferase (ALT/SGPT) 36, Alkaline Phosphatase 123H, Total Protein 6.3L, Albumin 1.9L, Albumin/Globulin Ratio 0.4L 02/21/21 10:52: Bedside Glucose (Misc Panel) 86 02/21/21 13:58: Bedside Glucose (Misc Panel) 71 02/21/21 18:17: Bedside Glucose (Misc Panel) 92 CBC/BMP Laboratory Tests 02/21/21 06:47 Microbiology Microbiology 02/20/21 Stool Occult Blood ([facility]) - Final, Complete 02/15/21 Blood Culture - Final, Complete NO GROWTH AFTER 5 DAYS 02/15/21 Blood Culture - Final, Complete NO GROWTH AFTER 5 DAYS 02/13/21 Urine Culture - Final, Complete Escherichia Coli 02/13/21 Blood Culture - Final, Complete NO GROWTH AFTER 5 DAYS 02/12/21 Respiratory Virus Panel (PCR) ([facility]) - Final, Complete SARS-CoV-2 (COVID 19) Ana Naik MD Feb 21, 2021 18:47
[2021-02-21] MEDS: traMADol ER 100MG TABLET (ULTRAM ER) PO SCH (21:28)
[2021-02-21] MEDS: MONTELUKAST 10 MG TAB PO SCH (21:28)
[2021-02-21] MEDS: LACTULOSE 20 GM/30 ML SYRUP UD PO SCH (21:29)
[2021-02-21] MEDS: cefTRIAXone SOD 1 GM in D5W MINI-BAG PLUS 50 ML IV SCH (21:30)
[2021-02-22] VITALS: O2SAT 96
[2021-02-22 00:07] LABS: BODY FLUID CULTURE Not indicated. (.); L. PNEUMOPHILA (1,3,4,5,6,8) <0.91 OD ratio (0.00-0.90); ORGANISM ID Not indicated. (.); SPECIMEN SOURCE Urine (.); URINE STREP PNEUMONIAE ANTIGEN Negative (Negative)
[2021-02-22 04:00] VITALS: BP 117/76; O2SAT 100
[2021-02-22 07:58] LABS: HEMOGLOBIN 9.2 g/dl (12.0-15.5); MEAN CORPUSCULAR HEMOGLOBIN 29.1 pg (27.0-33.0); MEAN CORPUSCULAR HGB CONC 30.7 g/dl (32.0-36.5); MEAN CORPUSCULAR VOLUME 94.9 fl (80.0-96.0); PLATELET COUNT, AUTOMATED 696 10^3/uL (150-450); RED BLOOD COUNT 3.16 10^6/uL (4.00-5.40); WHITE BLOOD COUNT 9.2 10^3/uL (4.0-10.0)
[2021-02-22] MEDS: SENOKOT S TAB PO SCH (08:39)
[2021-02-22] MEDS: PANTOPRAZOLE 40MG VIAL (C9113 PER 1) IV SCH (08:39)
[2021-02-22] MEDS: ENOXAPARIN 40MG/0.4ML SYRINGE (J1650 PER 10MG) SC SCH (08:39)
[2021-02-22] MEDS: LEVOTHYROXINE 100MCG (0.1MG) VIAL IV SCH (08:39)
[2021-02-22] MEDS: MAGNESIUM OXIDE 400MG TAB (MAG-OX) PO SCH (08:40)
[2021-02-22] MEDS: risperiDONE 0.5 MG TAB PO SCH (08:40)
[2021-02-22] MEDS: TOPIRAMATE (TopAMAX) 100 MG TAB PO SCH (08:40)
[2021-02-22] MEDS: FOLIC ACID 1 MG TAB PO SCH (08:40)
[2021-02-22] MEDS: risperiDONE 1 MG TAB PO SCH (08:40)
[2021-02-22] MEDS: BACLOFEN 10 MG TAB PO SCH (08:40)
[2021-02-22] MEDS: MOM 30ML SUSPENSION UDC PO SCH (08:41)
[2021-02-22] MEDS: BISACODYL 10 MG SUPP PR SCH (08:41)
[2021-02-22] MEDS: FLEET ENEMA PR SCH (08:41)
[2021-02-22 12:00] VITALS: O2SAT 100
[2021-02-22 12:55] VITALS: BP 118/72
[2021-02-22 14:00] VITALS: BP 118/78
--- NOTE | 2021-02-22 14:13 | DS.PDOC ---
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 HOSPITAL COURSE: In the ED she was found to have hypoxemia and was COVID 19 positive and was admitted for covid-19 PNA. Thankfully her hypoxemia was transient and she returned to room air quickly. She was however dehydrated, tachycardic with leukocytosis and was also found to hava a concurrent UTI. She was briefly hypotensive and required ICU transfer but responded to fluids without need for pressor support. She was started on ceftriaxone for a UTI, dexamethasone and remdesevir for which she eventually received a 5d course of remdesevir and dexamethasone was stopped. Her course was complicated by poor appetite and refusal of all PO for days with associated hypoglycemia and IV hydration. Her appetite finally improved and she is now taking adequate PO, has completed 8d of ceftriaxone for the UTI and is now being discharged back to [facility] to continue self isolation and quarantine until at least 02/27 and resolution of all symptoms. She can at this time resume all her regular activities otherwise including physical and occupational therapy and resume her baseline diet. DISCHARGE MEDICATIONS: Please see below. ALLERGIES: Please see below. PHYSICAL EXAMINATION ON DISCHARGE: VITAL SIGNS: Please see below. VITALS: see below GENERAL APPEARANCE: awake and alert today,happy and smiling again today HEENT: NCAT, EOMI, dry MM CARDIOVASCULAR: RRR, no m/r/g LUNGS: CTAB on RA, no crackles, wheezing or rhonchi ABDOMEN: contour flat, soft, normoactive sounds, no grimacing with deep palpation of lower extremities EXT: No edema, WWP NEURO: no focal deficits LABORATORY DATA: Please see below. IMAGING: CT abd/pelvis: 1. Under distention versus mild wall thickening of the distal ascending, transverse and proximal descending colon. Mild nonspecific colitis cannot be excluded. 2. Confluent left greater than right lower lobe infiltrates with associated peribronchial thickening, concerning for pneumonia/aspiration. 3. Small pleural effusions. 4. Indeterminate 1.3 cm low-density splenic lesion, possibly a hemangioma. If clinically indicated, MRI may be obtained for further evaluation. 5. Additional findings, as above. CTA chest: 1. Bilateral multifocal airspace infiltrates both semi-solid and solid predomi nantly in the lower lung zones consistent with multifocal pneumonitis. Findings consistent with known Covid diagnosis. 2. Small bilateral pleural effusions. 3. There is no aortic dissection or aneurysm. 4. Well inflated lungs may indicate COPD. 5. There are no pulmonary emboli. MICROBIOLOGY: + COVID UCx E. coli Admission blood culture: NG to date blood cultures x 2 sets: NG to date PROGNOSIS: Good ACTIVITY: As tolerated DIET: Chopped DISCHARGE PLAN: Discharge to [facility] DISPOSITION: [facility] DISCHARGE INSTRUCTIONS: PCP/GP within 7d of discharge ITEMS TO FOLLOWUP ON ON OUTPATIENT: Covid-19 PNA DISCHARGE CONDITION: Stable TIME SPENT ON DISCHARGE: 33 minutes. Vital Signs/I&Os Vital Signs Date Time Temp Pulse Resp B/P (MAP) Pulse Ox O2 Delivery O2 Flow Rate FiO2 02/22/21 12:55 97.6 86 18 118/72 (87) 98 Room Air I&O- Last 24 Hours up to 6 AM 02/22/21 06:00 Intake Total 740 ml Balance 740 ml Laboratory Data Labs 24H Laboratory Tests 2 02/21/21 18:17: Bedside Glucose (Misc Panel) 92 02/21/21 20:47: Bedside Glucose (Misc Panel) 90 02/21/21 23:55: Bedside Glucose (Misc Panel) 108H 02/22/21 03:07: Bedside Glucose (Misc Panel) 91 02/22/21 05:32: Bedside Glucose (Misc Panel) 90 02/22/21 07:39: Nucleated Red Blood Cells % (auto) 0.0 02/22/21 12:16: Bedside Glucose (Misc Panel) 77 CBC/BMP Laboratory Tests 02/22/21 07:39 FSBS Laboratory Tests Test 02/21/21 18:17 02/21/21 20:47 02/21/21 23:55 02/22/21 03:07 Range/Units Bedside Glucose (Misc Panel) 92 90 108 91 70-105 MG/DL Test 02/22/21 05:32 02/22/21 12:16 Range/Units Bedside Glucose (Misc Panel) 90 77 70-105 MG/DL Microbiology Microbiology 02/20/21 Stool Occult Blood ([facility]) - Final, Complete 02/15/21 Blood Culture - Final, Complete NO GROWTH AFTER 5 DAYS 02/15/21 Blood Culture - Final, Complete NO GROWTH AFTER 5 DAYS 02/13/21 Urine Culture - Final, Complete Escherichia Coli 02/13/21 Blood Culture - Final, Complete NO GROWTH AFTER 5 DAYS 02/12/21 Respiratory Virus Panel (PCR) ([facility]) - Final, Complete SARS-CoV-2 (COVID 19) Discharge Medications Scheduled Baclofen (Baclofen) 20 Mg Tablet, 20 MG PO TID, (Reported) Duloxetine HCl (Duloxetine HCl) 60 Mg Capsule.dr, 60 MG PO QPM, (Reported) Esomeprazole Magnesium (Esomeprazole Magnesium Dr) 40 Mg Capsule.dr, 40 MG PO DAILY, (Reported) Folic Acid (Folic Acid) 1 Mg Tab, 1 MG PO DAILY, (Reported) Lactulose (Constulose) 10 Gm/15 Ml Millie, 30 ML PO QHS, (Reported) Levothyroxine Sodium (Euthyrox) 112 Mcg Tablet, 112 MCG PO DAILY, (Reported) Linaclotide (Linzess) 290 Mcg Capsule, 290 MCG PO QHS, (Reported) Lorazepam (Lorazepam) 2 Mg Tablet, 2 MG PO QHS, (Reported) Magnesium Hydroxide (Milk of Magnesia) 400 Mg/5 Ml Oral.susp, 20 ML PO DAILY for constipation, (Reported) DAY 1 NO BM Montelukast Sodium (Singulair) 10 Mg Tab, 10 MG PO QHS, (Reported) Risperidone (Risperdal) 1 Mg Tablet, 1 MG PO BID, (Reported) TOTAL DOSE 1.5MG BID Risperidone (Risperidone) 0.5 Mg Tablet, 0.5 MG PO BID, (Reported) TOTAL DOSE 1.5MG BID Sennosides/Docusate Sodium (Senna-Plus Tablet) 8.6 Mg-50 Mg Tablet, 2 TABS PO DAILY, (Reported) Topiramate (Topamax) 200 Mg Tab, 100 MG PO BID, (Reported) Tramadol HCl (Tramadol HCl ER) 300 Mg Tab, 300 MG PO QHS, (Reported) Scheduled PRN Bisacodyl (Bisacodyl) 10 Mg/30 Ml Enema, 10 MG MO DAILY PRN for CONSTIPATION, (Reported) DAY 3 NO BM Mineral Oil (Mineral Oil Enema) 133 Ml Enema, 1 EA MO DAILY PRN for CONSTIPATION, (Reported) DAYS 4 AND 5 NO BM Sodium Phosphate,[place]-Dibasic (Fleet Enema) 133 Ml Enema, 1 LUCI MO ONCE PRN for CONSTIPATION, (Reported) DAY 2 NO BM Allergies Coded Allergies: No Known Allergies (Verified , 01/10/19) TERESA MARIO MD Feb 22, 2021 14:12
== END 2021-02-22 14:45 | DRG 871 ==
LOC: M ED 19:53 → M ED INP 23:18 → M ICU 02-13 00:28 → M 4MAIN 02-13 15:04
PROVIDERS: ADMIT Internal Medicine; ATTEND Internal Medicine
PROC: XW033E5 Introduction of Remdesivir Anti-infective into Peripheral Vein, Percutaneous Approach, New Technology Group 5 (ICD-10-PCS; principal; 2021-02-12)
PROC: 3E0333Z Introduction of Anti-inflammatory into Peripheral Vein, Percutaneous Approach (ICD-10-PCS; 2021-02-12)
DX: A41.9 Sepsis, unspecified organism (principal); U07.1 COVID-19; G93.41 Metabolic encephalopathy; J12.82 Pneumonia due to coronavirus disease 2019; N17.9 Acute kidney failure, unspecified; N39.0 Urinary tract infection, site not specified; J90 Pleural effusion, not elsewhere classified; E03.9 Hypothyroidism, unspecified; R26.89 Other abnormalities of gait and mobility; Q12.0 Congenital cataract; I95.9 Hypotension, unspecified; K59.09 Other constipation; Z79.899 Other long term (current) drug therapy; H91.92 Unspecified hearing loss, left ear; E16.2 Hypoglycemia, unspecified; R00.0 Tachycardia, unspecified; F79 Unspecified intellectual disabilities; D56.3 Thalassemia minor; B96.20 Unspecified Escherichia coli [E. coli] as the cause of diseases classified elsewhere; E83.42 Hypomagnesemia; E87.6 Hypokalemia; E86.0 Dehydration

== ENCOUNTER → 2021-03-18 | Outpatient (CLI) | payer MEDICARE, MEDICAID ==
[~2021-03-18] MED LIST changes: +BISA10EN PR; +DULO60CA35 PO; +ESOM40CA35 PO; +FLEEENE12 PR; +FLEETOIL PR; +LINZ290C PO; +MILK400S12 PO; +RISP-7 PO; +SENN-123 PO; +SENN8.6T28 PO
== END ==
LOC: M WHC 10:02
PROVIDERS: ATTEND Registered Nurse
DX: Z53.20 Procedure and treatment not carried out because of patient's decision for unspecified reasons (principal)

== ENCOUNTER → 2021-06-14 | Outpatient (CLI) | payer MEDICARE, MEDICAID ==
[~2021-06-14] MED LIST changes: +AUGM875T28 PO; +TOPA100T12 PO
== END ==
LOC: M WHC 10:05
PROVIDERS: ATTEND Registered Nurse
DX: Z12.31 Encounter for screening mammogram for malignant neoplasm of breast (principal); D25.9 Leiomyoma of uterus, unspecified; Z78.0 Asymptomatic menopausal state; Z92.0 Personal history of contraception

== ENCOUNTER → 2021-06-21 | Outpatient (CLI) | payer MEDICARE, MEDICAID ==
[2021-06-21 15:23] LABS: ALBUMIN 2.8 GM/DL (3.2-5.2); ALT/SGPT 31 U/L (12-78); BILIRUBIN,TOTAL 0.2 MG/DL (0.2-1.0); BLOOD UREA NITROGEN 13 MG/DL (7-18); CALCIUM LEVEL 9.4 MG/DL (8.5-10.1); CARBON DIOXIDE LEVEL 29 MEQ/L (21-32); CHLORIDE LEVEL 106 MEQ/L (98-107); CREATININE FOR GFR 0.59 MG/DL (0.55-1.30); GLOMERULAR FILTRATION RATE > 60.0 (>51); GLUCOSE, FASTING 92 MG/DL (70-100); MAGNESIUM LEVEL 1.8 MG/DL (1.8-2.4); POTASSIUM SERUM 4.4 MEQ/L (3.5-5.1); SODIUM LEVEL 141 MEQ/L (136-145); TOTAL PROTEIN 7.4 GM/DL (6.4-8.2)
[2021-06-21 19:14] LABS: AMORPHOUS SEDIMENT SMALL (NEGATIVE); APPEARANCE, URINE CLEAR (CLEAR); BACTERIA, URINE AUTO 1+ (NEGATIVE); BILIRUBIN, URINE AUTO NEGATIVE (NEGATIVE); BLOOD, URINE BLOOD 1+ (NEGATIVE); COLOR, URINE YELLOW (YELLOW); GLUCOSE, URINE (UA) AUTO NEGATIVE (NEGATIVE); KETONE, URINE AUTO NEGATIVE (NEGATIVE); LEUKOCYTE ESTERASE, URINE AUTO 3+ (NEGATIVE); MUCUS, URINE SMALL (NEGATIVE); NITRITE, URINE AUTO POSITIVE (NEGATIVE); PROTEIN, URINE AUTO NEGATIVE (NEGATIVE); RBC, URINE AUTO 1 /HPF (0-3); SPECIFIC GRAVITY URINE AUTO 1.006 (1.002-1.035); SQUAMOUS EPITHELIAL CELL UR AU 0 /HPF (0-6); UROBILINOGEN, URINE AUTO 0.2 mg/dL (0.0-2.0); WBC, URINE AUTO 114 /HPF (0-3)
== END ==
LOC: M RAD 13:37
PROVIDERS: ATTEND Registered Nurse
DX: R91.8 Other nonspecific abnormal finding of lung field (principal); D50.9 Iron deficiency anemia, unspecified

== ENCOUNTER → 2021-07-04 | Outpatient (CLI) | payer MEDICARE, MEDICAID ==
[~2021-07-04] MED LIST changes: +TRAM300T5 PO; -TRAM300T9 PO
== END ==
LOC: M WUC 09:17
PROVIDERS: ATTEND Registered Nurse
DX: J18.9 Pneumonia, unspecified organism (principal)

== ENCOUNTER → 2021-07-07 | Outpatient (CLI) | payer MEDICARE, MEDICAID ==
[~2021-07-07] MED LIST changes: +DEBR6.5S4 AU; +TRAZ-186 PO; +UNIT1TAB5 PO
[2021-07-07 10:53] LABS: BASO % 0.2 % (0.0-1.0); EOS % 0.5 % (0.0-3.0); HEMATOCRIT 36.6 % (36.0-47.0); HEMOGLOBIN 11.4 g/dl (12.0-15.5); LYMPH # 1.9 10^3/uL (1.5-5.0); LYMPH % 21.5 % (24.0-44.0); MEAN CORPUSCULAR HEMOGLOBIN 30.1 pg (27.0-33.0); MEAN CORPUSCULAR HGB CONC 31.1 g/dl (32.0-36.5); MEAN CORPUSCULAR VOLUME 96.6 fl (80.0-96.0); MONO # 0.9 10^3/uL (0.0-0.8); MONO % 9.9 % (2.0-8.0); NEUTROPHILS # 5.8 10^3/uL (1.5-8.5); NEUTROPHILS % 67.6 % (36.0-66.0); PLATELET COUNT, AUTOMATED 247 10^3/uL (150-450); RED BLOOD COUNT 3.79 10^6/uL (4.00-5.40); WHITE BLOOD COUNT 8.6 10^3/uL (4.0-10.0)
[2021-07-07 11:30] LABS: ALBUMIN 3.2 GM/DL (3.2-5.2); ALT/SGPT 28 U/L (12-78); BILIRUBIN,TOTAL 0.3 MG/DL (0.2-1.0); BLOOD UREA NITROGEN 16 MG/DL (7-18); CALCIUM LEVEL 10.2 MG/DL (8.5-10.1); CARBON DIOXIDE LEVEL 31 MEQ/L (21-32); CHLORIDE LEVEL 106 MEQ/L (98-107); CREATININE FOR GFR 0.76 MG/DL (0.55-1.30); FREE T3 2.2 PG/ML (2.2-4.0); FREE T4 1.32 NG/DL (0.76-1.46); GLOMERULAR FILTRATION RATE > 60.0 (>51); GLUCOSE, FASTING 90 MG/DL (70-100); POTASSIUM SERUM 4.7 MEQ/L (3.5-5.1); SODIUM LEVEL 141 MEQ/L (136-145); THYROID STIMULATING HORMONE 0.693 uIU/ML (0.358-3.740); TOTAL PROTEIN 7.7 GM/DL (6.4-8.2)
== END ==
LOC: M WUC 09:24
PROVIDERS: ATTEND Family Medicine
DX: E86.0 Dehydration (principal); R63.4 Abnormal weight loss

== ENCOUNTER 2021-07-08 08:42 | Inpatient (IN) | payer MEDICARE, MEDICAID ==
[~2021-07-08] VITALS: Ht 165.1 cm; Wt 50.7 kg
[~2021-07-08 08:42] MED LIST changes: -DEBR6.5S4 AU; -TRAZ-186 PO; -UNIT1TAB5 PO
[2021-07-08] MEDS ORDERED: ONDANSETRON 4MG/2ML VIAL IV ONE (09:55)
[2021-07-08] MEDS ORDERED: DEBR6.5S4 AU (10:28)
[2021-07-08] MEDS ORDERED: UNIT1TAB5 PO (10:28)
[2021-07-08] MEDS ORDERED: TRAZ-186 PO (10:28)
[2021-07-08] MEDS: NS 1,000 ML IV SCH ×2 (10:52→14:53)
[2021-07-08] MEDS ORDERED: ISOVUE-370 76% 100ML VIAL As Ordered ONE (10:56)
[2021-07-08] MEDS ORDERED: LEVO112T2 PO (11:02)
[2021-07-08 11:04] LABS: BASO % 0.2 % (0.0-1.0); HEMATOCRIT 33.9 % (36.0-47.0); HEMOGLOBIN 10.6 g/dl (12.0-15.5); LYMPH # 1.1 10^3/uL (1.5-5.0); LYMPH % 4.3 % (24.0-44.0); MEAN CORPUSCULAR HEMOGLOBIN 29.1 pg (27.0-33.0); MEAN CORPUSCULAR HGB CONC 31.3 g/dl (32.0-36.5); MEAN CORPUSCULAR VOLUME 93.1 fl (80.0-96.0); MONO # 0.9 10^3/uL (0.0-0.8); MONO % 3.4 % (2.0-8.0); NEUTROPHILS # 23.4 10^3/uL (1.5-8.5); NEUTROPHILS % 91.3 % (36.0-66.0); PLATELET COUNT, AUTOMATED 310 10^3/uL (150-450); RED BLOOD COUNT 3.64 10^6/uL (4.00-5.40); WHITE BLOOD COUNT 25.6 10^3/uL (4.0-10.0)
[2021-07-08] MEDS ORDERED: HOME MED LIST COMPLETE! XX SCH (11:05)
[2021-07-08 11:36] LABS: BILIRUBIN,DIRECT 0.1 MG/DL (0.0-0.2); BILIRUBIN,TOTAL 0.3 MG/DL (0.2-1.0); TOTAL PROTEIN 7.4 GM/DL (6.4-8.2)
[2021-07-08 13:39] LABS: RSV AMPLIFICATION NEGATIVE (NEGATIVE)
[2021-07-08] MEDS ORDERED: ACETAMINOPHEN TAB 650MG DOSE (2X325MG) PO PRN (13:40)
[2021-07-08] MEDS: D5W/0.9% SODIUM CHLORIDE 1,000 ML IV SCH (18:30)
[2021-07-08] MEDS: ACETAMINOPHEN 650 MG SUPP PR PRN (18:31)
[2021-07-08] MEDS: PANTOPRAZOLE 40MG VIAL (C9113 PER 1) IV SCH (23:33)
[2021-07-08] MEDS: AMPICILLIN SOD/SULBACTAM SOD 3 GM in D5W MINI-BAG PLUS 100 ML IV SCH (23:33)
[2021-07-09 00:20] VITALS: BP 115/73
[2021-07-09] MEDS: LORazepam 2 MG/ML VIAL IV PRN ×2 (01:03→21:08)
[2021-07-09] MEDS: AMPICILLIN SOD/SULBACTAM SOD 3 GM in D5W MINI-BAG PLUS 100 ML IV SCH ×4 (02:15→21:09)
[2021-07-09 06:00] VITALS: BP 123/74
[2021-07-09] MEDS: PANTOPRAZOLE 40MG VIAL (C9113 PER 1) IV SCH ×2 (08:51→21:08)
[2021-07-09] MEDS: ENOXAPARIN 40MG/0.4ML SYRINGE (J1650 PER 10MG) SC SCH ×2 (08:52→09:00)
[2021-07-09] MEDS: D5W/0.9% SODIUM CHLORIDE 1,000 ML IV SCH ×2 (08:52→21:10)
[2021-07-09] MEDS: LEVOTHYROXINE 100MCG (0.1MG) VIAL (POWDER FORM) IV SCH (08:52)
[2021-07-09 14:30] VITALS: BP 125/76
[2021-07-09] MEDS ORDERED: LORazepam 2 MG/ML VIAL As Ordered ONE (21:06)
[2021-07-09 21:48] VITALS: BP 129/77
[2021-07-09] MEDS ORDERED: diphenhydrAMINE 50MG/ML VIAL (J1200) IV ONE (22:00)
[2021-07-10] MEDS: AMPICILLIN SOD/SULBACTAM SOD 3 GM in D5W MINI-BAG PLUS 100 ML IV SCH ×4 (03:16→20:44)
[2021-07-10 06:00] VITALS: BP 138/65
[2021-07-10 07:37] LABS: HEMATOCRIT 28.7 % (36.0-47.0); HEMOGLOBIN 8.9 g/dl (12.0-15.5); MEAN CORPUSCULAR HEMOGLOBIN 29.3 pg (27.0-33.0); MEAN CORPUSCULAR VOLUME 94.4 fl (80.0-96.0); PLATELET COUNT, AUTOMATED 374 10^3/uL (150-450); RED BLOOD COUNT 3.04 10^6/uL (4.00-5.40); WHITE BLOOD COUNT 9.7 10^3/uL (4.0-10.0)
[2021-07-10 07:51] LABS: ALBUMIN 2.7 GM/DL (3.2-5.2); ALT/SGPT 38 U/L (12-78); BILIRUBIN,TOTAL 0.5 MG/DL (0.2-1.0); BLOOD UREA NITROGEN 18 MG/DL (7-18); CARBON DIOXIDE LEVEL 30 MEQ/L (21-32); CHLORIDE LEVEL 113 MEQ/L (98-107); CREATININE FOR GFR 0.69 MG/DL (0.55-1.30); GLOMERULAR FILTRATION RATE > 60.0 (>51); GLUCOSE, FASTING 92 MG/DL (70-100); POTASSIUM SERUM 3.4 MEQ/L (3.5-5.1); SODIUM LEVEL 148 MEQ/L (136-145); TOTAL PROTEIN 6.6 GM/DL (6.4-8.2)
[2021-07-10] MEDS: KCL 20MEQ IN D5/0.45NS 1000ML 1,000 ML IV SCH (08:26)
[2021-07-10] MEDS: LEVOTHYROXINE 100MCG (0.1MG) VIAL (POWDER FORM) IV SCH (09:00)
[2021-07-10] MEDS: ENOXAPARIN 40MG/0.4ML SYRINGE (J1650 PER 10MG) SC SCH (09:39)
[2021-07-10] MEDS: PANTOPRAZOLE 40MG VIAL (C9113 PER 1) IV SCH ×2 (09:39→20:45)
[2021-07-10 14:30] VITALS: BP 133/79
[2021-07-10] MEDS: LORazepam 2 MG/ML VIAL IV PRN ×2 (15:10→20:44)
[2021-07-10] MEDS ORDERED: LORazepam 2 MG/ML VIAL As Ordered ONE (20:29)
[2021-07-10 21:55] VITALS: BP 124/75
[2021-07-11] MEDS: AMPICILLIN SOD/SULBACTAM SOD 3 GM in D5W MINI-BAG PLUS 100 ML IV SCH ×4 (02:55→21:05)
[2021-07-11 06:00] VITALS: BP 119/67
[2021-07-11] MEDS: KCL 20MEQ IN D5/0.45NS 1000ML 1,000 ML IV SCH ×3 (07:32→21:05)
[2021-07-11] MEDS ORDERED: E-Z-PAQUE 96% w/w SUSP 176GM BTL As Ordered ONE ×2 (07:42→08:32)
[2021-07-11] MEDS ORDERED: E-Z-GAS II EFFERVESCENT PACKET (SODIUM BICARB./CITRIC ACID/SIMETHICONE) As Ordered ONE (07:43)
[2021-07-11] MEDS ORDERED: E-Z-HD 98% w/w 340GM SUSP BTL As Ordered ONE (07:43)
[2021-07-11 08:21] LABS: HEMATOCRIT 29.7 % (36.0-47.0); HEMOGLOBIN 9.1 g/dl (12.0-15.5); MEAN CORPUSCULAR HEMOGLOBIN 29.3 pg (27.0-33.0); MEAN CORPUSCULAR HGB CONC 30.6 g/dl (32.0-36.5); MEAN CORPUSCULAR VOLUME 95.5 fl (80.0-96.0); PLATELET COUNT, AUTOMATED 443 10^3/uL (150-450); RED BLOOD COUNT 3.11 10^6/uL (4.00-5.40); WHITE BLOOD COUNT 10.1 10^3/uL (4.0-10.0)
[2021-07-11] MEDS ORDERED: BARIUM SULFATE 700 MG TABLET (E-Z-DISK) As Ordered ONE (08:32)
[2021-07-11] MEDS ORDERED: VARIBAR NECTAR 40% w/v 240ML SUSP BTL As Ordered ONE (08:32)
[2021-07-11] MEDS ORDERED: VARIBAR PUDDING 40% w/v 230ML TUBE As Ordered ONE (08:32)
[2021-07-11 08:49] LABS: ALBUMIN 2.9 GM/DL (3.2-5.2); ALT/SGPT 54 U/L (12-78); BILIRUBIN,TOTAL 0.6 MG/DL (0.2-1.0); BLOOD UREA NITROGEN 13 MG/DL (7-18); CALCIUM LEVEL 9.1 MG/DL (8.5-10.1); CARBON DIOXIDE LEVEL 29 MEQ/L (21-32); CHLORIDE LEVEL 117 MEQ/L (98-107); CREATININE FOR GFR 0.77 MG/DL (0.55-1.30); GLOMERULAR FILTRATION RATE > 60.0 (>51); GLUCOSE, FASTING 92 MG/DL (70-100); POTASSIUM SERUM 3.7 MEQ/L (3.5-5.1); SODIUM LEVEL 151 MEQ/L (136-145); TOTAL PROTEIN 6.8 GM/DL (6.4-8.2)
[2021-07-11] MEDS: PANTOPRAZOLE 40MG VIAL (C9113 PER 1) IV SCH ×2 (09:00→21:05)
[2021-07-11] MEDS: LEVOTHYROXINE 100MCG (0.1MG) VIAL (POWDER FORM) IV SCH (10:01)
[2021-07-11] MEDS: ENOXAPARIN 40MG/0.4ML SYRINGE (J1650 PER 10MG) SC SCH (10:02)
[2021-07-11] MEDS: ACETAMINOPHEN 650 MG SUPP PR PRN (10:52)
[2021-07-11 13:00] VITALS: BP 125/82
[2021-07-11 14:00] VITALS: BP 125/82
[2021-07-11 22:00] VITALS: BP 128/70
[2021-07-11] MEDS ORDERED: LORazepam 2 MG/ML VIAL As Ordered ONE (23:05)
[2021-07-11] MEDS: LORazepam 2 MG/ML VIAL IV PRN (23:07)
[2021-07-12] MEDS: ACETAMINOPHEN 650 MG SUPP PR PRN (00:39)
[2021-07-12] MEDS: AMPICILLIN SOD/SULBACTAM SOD 3 GM in D5W MINI-BAG PLUS 100 ML IV SCH ×4 (03:57→20:22)
[2021-07-12] MEDS: LEVOTHYROXINE 100MCG (0.1MG) VIAL (POWDER FORM) IV SCH (05:24)
[2021-07-12 06:00] VITALS: BP 135/75
[2021-07-12 06:50] LABS: HEMATOCRIT 29.5 % (36.0-47.0); MEAN CORPUSCULAR HEMOGLOBIN 29.6 pg (27.0-33.0); MEAN CORPUSCULAR HGB CONC 30.5 g/dl (32.0-36.5); PLATELET COUNT, AUTOMATED 462 10^3/uL (150-450); RED BLOOD COUNT 3.04 10^6/uL (4.00-5.40); WHITE BLOOD COUNT 8.4 10^3/uL (4.0-10.0)
[2021-07-12 07:22] LABS: ALBUMIN 2.7 GM/DL (3.2-5.2); ALT/SGPT 52 U/L (12-78); BILIRUBIN,TOTAL 0.7 MG/DL (0.2-1.0); BLOOD UREA NITROGEN 11 MG/DL (7-18); CALCIUM LEVEL 8.8 MG/DL (8.5-10.1); CARBON DIOXIDE LEVEL 30 MEQ/L (21-32); CHLORIDE LEVEL 115 MEQ/L (98-107); GLOMERULAR FILTRATION RATE > 60.0 (>51); GLUCOSE, FASTING 88 MG/DL (70-100); POTASSIUM SERUM 3.5 MEQ/L (3.5-5.1); SODIUM LEVEL 149 MEQ/L (136-145); TOTAL PROTEIN 6.6 GM/DL (6.4-8.2)
[2021-07-12] MEDS: PANTOPRAZOLE 40MG VIAL (C9113 PER 1) IV SCH ×2 (08:58→20:22)
[2021-07-12] MEDS: ENOXAPARIN 40MG/0.4ML SYRINGE (J1650 PER 10MG) SC SCH (08:58)
[2021-07-12] MEDS: KCL 20MEQ IN D5/0.2%NS 1000ML 1,000 ML IV SCH (12:37)
[2021-07-12 14:00] VITALS: BP 131/67
[2021-07-12 22:00] VITALS: BP 149/81
[2021-07-13] MEDS: LEVOTHYROXINE 100MCG (0.1MG) VIAL (POWDER FORM) IV SCH (05:26)
[2021-07-13] MEDS: KCL 20MEQ IN D5/0.2%NS 1000ML 1,000 ML IV SCH ×2 (05:27→11:26)
[2021-07-13 06:00] VITALS: BP 132/67
[2021-07-13] MEDS: ACETAMINOPHEN 650 MG SUPP PR PRN (06:08)
[2021-07-13 07:50] LABS: HEMATOCRIT 31.1 % (36.0-47.0); HEMOGLOBIN 9.8 g/dl (12.0-15.5); MEAN CORPUSCULAR HEMOGLOBIN 30.1 pg (27.0-33.0); MEAN CORPUSCULAR HGB CONC 31.5 g/dl (32.0-36.5); MEAN CORPUSCULAR VOLUME 95.4 fl (80.0-96.0); PLATELET COUNT, AUTOMATED 523 10^3/uL (150-450); RED BLOOD COUNT 3.26 10^6/uL (4.00-5.40); WHITE BLOOD COUNT 7.9 10^3/uL (4.0-10.0)
[2021-07-13 08:43] LABS: ALBUMIN 2.7 GM/DL (3.2-5.2); ALT/SGPT 46 U/L (12-78); BILIRUBIN,TOTAL 0.5 MG/DL (0.2-1.0); BLOOD UREA NITROGEN 8 MG/DL (7-18); CALCIUM LEVEL 8.9 MG/DL (8.5-10.1); CARBON DIOXIDE LEVEL 29 MEQ/L (21-32); CHLORIDE LEVEL 109 MEQ/L (98-107); CREATININE FOR GFR 0.64 MG/DL (0.55-1.30); GLOMERULAR FILTRATION RATE > 60.0 (>51); GLUCOSE, FASTING 99 MG/DL (70-100); POTASSIUM SERUM 3.6 MEQ/L (3.5-5.1); SODIUM LEVEL 144 MEQ/L (136-145); TOTAL PROTEIN 6.6 GM/DL (6.4-8.2)
[2021-07-13] MEDS: PANTOPRAZOLE 40MG VIAL (C9113 PER 1) IV SCH (09:08)
[2021-07-13] MEDS: ENOXAPARIN 40MG/0.4ML SYRINGE (J1650 PER 10MG) SC SCH (09:08)
[2021-07-13 14:00] VITALS: BP 134/87
[2021-07-13] MEDS: PANTOPRAZOLE 40MG TAB (PROTONIX) PO SCH (21:56)
[2021-07-13 22:00] VITALS: BP 132/87
[2021-07-14] MEDS: KCL 20MEQ IN D5/0.2%NS 1000ML 1,000 ML IV SCH ×2 (04:00→17:20)
[2021-07-14 06:00] VITALS: BP 129/84
[2021-07-14] MEDS ORDERED: LEVOTHYROXINE 150MCG TABLET (0.15MG) PO SCH (06:00)
[2021-07-14] MEDS: PANTOPRAZOLE 40MG TAB (PROTONIX) PO SCH (09:32)
[2021-07-14] MEDS: ENOXAPARIN 40MG/0.4ML SYRINGE (J1650 PER 10MG) SC SCH (09:32)
[2021-07-14] MEDS: ACETAMINOPHEN 650 MG SUPP PR PRN (09:32)
[2021-07-14] MEDS ORDERED: MOM 30ML SUSPENSION UDC PO PRN (10:05)
[2021-07-14] MEDS ORDERED: FLEET OIL RETENTION ENEMA PR PRN (10:05)
[2021-07-14] MEDS ORDERED: BISACODYL ENEMA 10 MG/30 ML PR PRN (10:05)
[2021-07-14] MEDS: risperiDONE 0.5 MG TAB PO SCH ×2 (11:19→21:00)
[2021-07-14] MEDS: SENOKOT S TAB PO SCH ×2 (11:19→21:00)
[2021-07-14] MEDS: TOPIRAMATE (TopAMAX) 100 MG TAB PO SCH ×2 (11:19→21:00)
[2021-07-14] MEDS: FOLIC ACID 1 MG TAB PO SCH (11:20)
[2021-07-14] MEDS: LORazepam 1 MG TAB PO SCH ×2 (11:20→21:00)
[2021-07-14] MEDS: BACLOFEN 10 MG TAB PO SCH ×4 (11:20→21:00)
[2021-07-14 14:00] VITALS: BP 144/74
[2021-07-14] MEDS: MONTELUKAST 10 MG TAB PO SCH (21:00)
[2021-07-14] MEDS: DULoxetine 30MG CAPSULE (CYMBALTA) PO SCH (21:00)
[2021-07-14] MEDS: traMADol ER 100MG TABLET (ULTRAM ER) PO SCH (21:00)
[2021-07-14] MEDS: traZODone 50 MG TAB PO SCH (21:00)
[2021-07-14] MEDS: OMEPRAZOLE 20MG CAP PO SCH (21:00)
[2021-07-14] MEDS: LACTULOSE 20 GM/30 ML SYRUP UD PO SCH (21:00)
[2021-07-14 22:00] VITALS: BP 134/77
[2021-07-15 06:00] VITALS: BP 122/68
[2021-07-15] MEDS: LEVOTHYROXINE 112MCG TABLET (0.112MG) PO SCH (06:02)
[2021-07-15 08:03] LABS: HEMATOCRIT 32.8 % (36.0-47.0); MEAN CORPUSCULAR HEMOGLOBIN 29.9 pg (27.0-33.0); MEAN CORPUSCULAR HGB CONC 30.5 g/dl (32.0-36.5); MEAN CORPUSCULAR VOLUME 97.9 fl (80.0-96.0); PLATELET COUNT, AUTOMATED 568 10^3/uL (150-450); RED BLOOD COUNT 3.35 10^6/uL (4.00-5.40); WHITE BLOOD COUNT 12.9 10^3/uL (4.0-10.0)
[2021-07-15 08:29] LABS: BLOOD UREA NITROGEN 9 MG/DL (7-18); CALCIUM LEVEL 8.9 MG/DL (8.5-10.1); CARBON DIOXIDE LEVEL 28 MEQ/L (21-32); CHLORIDE LEVEL 107 MEQ/L (98-107); GLOMERULAR FILTRATION RATE > 60.0 (>51); GLUCOSE, FASTING 97 MG/DL (70-100); POTASSIUM SERUM 3.6 MEQ/L (3.5-5.1); SODIUM LEVEL 142 MEQ/L (136-145)
[2021-07-15] MEDS ORDERED: LINZESS 290 MCG PO SCH (09:00)
[2021-07-15] MEDS: SENOKOT S TAB PO SCH ×2 (09:14→19:56)
[2021-07-15] MEDS: LORazepam 1 MG TAB PO SCH ×2 (09:14→21:33)
[2021-07-15] MEDS: risperiDONE 0.5 MG TAB PO SCH ×2 (09:14→19:54)
[2021-07-15] MEDS: ENOXAPARIN 40MG/0.4ML SYRINGE (J1650 PER 10MG) SC SCH (09:14)
[2021-07-15] MEDS: FOLIC ACID 1 MG TAB PO SCH (09:14)
[2021-07-15] MEDS: BACLOFEN 10 MG TAB PO SCH ×3 (09:14→19:54)
[2021-07-15] MEDS: TOPIRAMATE (TopAMAX) 100 MG TAB PO SCH ×2 (09:14→19:56)
[2021-07-15 14:00] VITALS: BP 144/65
[2021-07-15] MEDS: MONTELUKAST 10 MG TAB PO SCH (19:54)
[2021-07-15] MEDS: DULoxetine 30MG CAPSULE (CYMBALTA) PO SCH (19:55)
[2021-07-15] MEDS: OMEPRAZOLE 20MG CAP PO SCH (19:55)
[2021-07-15] MEDS: traMADol ER 100MG TABLET (ULTRAM ER) PO SCH (19:55)
[2021-07-15] MEDS: traZODone 50 MG TAB PO SCH (19:55)
[2021-07-15] MEDS: LACTULOSE 20 GM/30 ML SYRUP UD PO SCH (19:56)
[2021-07-15] MEDS ORDERED: PILL CUTTER 1 EACH XX PRN (20:55)
[2021-07-15 21:42] VITALS: BP 131/84
[2021-07-16] MEDS: LEVOTHYROXINE 112MCG TABLET (0.112MG) PO SCH (04:58)
[2021-07-16 05:39] VITALS: BP 102/66
[2021-07-16 06:08] LABS: HEMATOCRIT 31.8 % (36.0-47.0); HEMOGLOBIN 9.6 g/dl (12.0-15.5); MEAN CORPUSCULAR HEMOGLOBIN 29.7 pg (27.0-33.0); MEAN CORPUSCULAR HGB CONC 30.2 g/dl (32.0-36.5); MEAN CORPUSCULAR VOLUME 98.5 fl (80.0-96.0); PLATELET COUNT, AUTOMATED 495 10^3/uL (150-450); RED BLOOD COUNT 3.23 10^6/uL (4.00-5.40); WHITE BLOOD COUNT 8.2 10^3/uL (4.0-10.0)
[2021-07-16 06:46] LABS: BLOOD UREA NITROGEN 6 MG/DL (7-18); CALCIUM LEVEL 8.5 MG/DL (8.5-10.1); CARBON DIOXIDE LEVEL 29 MEQ/L (21-32); CHLORIDE LEVEL 109 MEQ/L (98-107); CREATININE FOR GFR 0.67 MG/DL (0.55-1.30); GLOMERULAR FILTRATION RATE > 60.0 (>51); GLUCOSE, FASTING 95 MG/DL (70-100); POTASSIUM SERUM 2.9 MEQ/L (3.5-5.1); SODIUM LEVEL 143 MEQ/L (136-145)
[2021-07-16] MEDS ORDERED: POTASSIUM CHLORIDE 10% LIQ 20 MEQ/15 ML UDC PO ONE (06:50)
[2021-07-16] MEDS: risperiDONE 0.5 MG TAB PO SCH ×2 (08:36→21:47)
[2021-07-16] MEDS: LORazepam 1 MG TAB PO SCH ×2 (08:36→21:00)
[2021-07-16] MEDS: BACLOFEN 10 MG TAB PO SCH ×3 (08:36→21:00)
[2021-07-16] MEDS: FOLIC ACID 1 MG TAB PO SCH (08:37)
[2021-07-16] MEDS: SENOKOT S TAB PO SCH ×2 (08:37→21:47)
[2021-07-16] MEDS: TOPIRAMATE (TopAMAX) 100 MG TAB PO SCH ×2 (08:37→21:49)
[2021-07-16] MEDS: ENOXAPARIN 40MG/0.4ML SYRINGE (J1650 PER 10MG) SC SCH (08:37)
[2021-07-16] MEDS: PANTOPRAZOLE 40MG VIAL (C9113 PER 1) IV SCH ×2 (12:28→21:47)
[2021-07-16 14:00] VITALS: BP 105/66
[2021-07-16] MEDS: KCL 20MEQ IN D5/0.45NS 1000ML 1,000 ML IV SCH (14:53)
[2021-07-16] MEDS: traZODone 50 MG TAB PO SCH (21:00)
[2021-07-16] MEDS: traMADol ER 100MG TABLET (ULTRAM ER) PO SCH (21:00)
[2021-07-16] MEDS: DULoxetine 30MG CAPSULE (CYMBALTA) PO SCH (21:47)
[2021-07-16] MEDS: LACTULOSE 20 GM/30 ML SYRUP UD PO SCH (21:47)
[2021-07-16] MEDS: MONTELUKAST 10 MG TAB PO SCH (21:49)
[2021-07-16 22:00] VITALS: BP 115/80
[2021-07-17 03:18] LABS: APPEARANCE, URINE CLEAR (CLEAR); BACTERIA, URINE AUTO 1+ (NEGATIVE); BILIRUBIN, URINE AUTO NEGATIVE (NEGATIVE); BLOOD, URINE BLOOD NEGATIVE (NEGATIVE); COLOR, URINE YELLOW (YELLOW); GLUCOSE, URINE (UA) AUTO NEGATIVE (NEGATIVE); KETONE, URINE AUTO NEGATIVE (NEGATIVE); LEUKOCYTE ESTERASE, URINE AUTO NEGATIVE (NEGATIVE); MUCUS, URINE SMALL (NEGATIVE); NITRITE, URINE AUTO NEGATIVE (NEGATIVE); PROTEIN, URINE AUTO NEGATIVE (NEGATIVE); RBC, URINE AUTO 1 /HPF (0-3); SPECIFIC GRAVITY URINE AUTO 1.011 (1.002-1.035); SQUAMOUS EPITHELIAL CELL UR AU 0 /HPF (0-6); TRANSITIONAL EPITHELIAL AUTO <1 /HPF; WBC, URINE AUTO 1 /HPF (0-3)
[2021-07-17 05:51] LABS: HEMOGLOBIN 9.3 g/dl (12.0-15.5); MEAN CORPUSCULAR HEMOGLOBIN 29.5 pg (27.0-33.0); MEAN CORPUSCULAR VOLUME 98.4 fl (80.0-96.0); PLATELET COUNT, AUTOMATED 478 10^3/uL (150-450); RED BLOOD COUNT 3.15 10^6/uL (4.00-5.40); WHITE BLOOD COUNT 6.6 10^3/uL (4.0-10.0)
[2021-07-17 06:00] VITALS: BP 95/65
[2021-07-17] MEDS: LEVOTHYROXINE 112MCG TABLET (0.112MG) PO SCH (06:04)
[2021-07-17] MEDS: KCL 20MEQ IN D5/0.45NS 1000ML 1,000 ML IV SCH (06:04)
[2021-07-17 06:21] LABS: BLOOD UREA NITROGEN 5 MG/DL (7-18); CALCIUM LEVEL 8.9 MG/DL (8.5-10.1); CARBON DIOXIDE LEVEL 29 MEQ/L (21-32); CHLORIDE LEVEL 111 MEQ/L (98-107); CREATININE FOR GFR 0.64 MG/DL (0.55-1.30); GLOMERULAR FILTRATION RATE > 60.0 (>51); GLUCOSE, FASTING 107 MG/DL (70-100); POTASSIUM SERUM 3.8 MEQ/L (3.5-5.1); SODIUM LEVEL 143 MEQ/L (136-145)
[2021-07-17] MEDS: risperiDONE 0.5 MG TAB PO SCH ×2 (08:58→22:19)
[2021-07-17] MEDS: POTASSIUM CHLORIDE 10% LIQ 20 MEQ/15 ML UDC PO SCH (08:59)
[2021-07-17] MEDS: FOLIC ACID 1 MG TAB PO SCH (09:00)
[2021-07-17] MEDS: SENOKOT S TAB PO SCH ×2 (09:00→22:19)
[2021-07-17] MEDS: LORazepam 1 MG TAB PO SCH ×2 (09:00→22:18)
[2021-07-17] MEDS: BACLOFEN 10 MG TAB PO SCH ×3 (09:00→22:19)
[2021-07-17] MEDS: TOPIRAMATE (TopAMAX) 100 MG TAB PO SCH ×2 (09:00→22:19)
[2021-07-17] MEDS: ENOXAPARIN 40MG/0.4ML SYRINGE (J1650 PER 10MG) SC SCH (09:00)
[2021-07-17] MEDS: PANTOPRAZOLE 40MG VIAL (C9113 PER 1) IV SCH ×2 (09:02→21:00)
[2021-07-17] MEDS ORDERED: traZODone 50 MG TAB PO PRN (13:00)
[2021-07-17 14:00] VITALS: BP 114/82
[2021-07-17] MEDS: PANTOPRAZOLE 40MG TAB (PROTONIX) PO SCH (21:00)
[2021-07-17 22:00] VITALS: BP 110/68
[2021-07-17] MEDS: DULoxetine 30MG CAPSULE (CYMBALTA) PO SCH (22:18)
[2021-07-17] MEDS: LACTULOSE 20 GM/30 ML SYRUP UD PO SCH (22:18)
[2021-07-17] MEDS: MONTELUKAST 10 MG TAB PO SCH (22:19)
[2021-07-18] MEDS: LEVOTHYROXINE 112MCG TABLET (0.112MG) PO SCH (05:51)
[2021-07-18 06:00] VITALS: BP 123/80
[2021-07-18] MEDS: risperiDONE 0.5 MG TAB PO SCH ×2 (09:04→21:00)
[2021-07-18] MEDS: FOLIC ACID 1 MG TAB PO SCH (09:04)
[2021-07-18] MEDS: BACLOFEN 10 MG TAB PO SCH ×3 (09:04→21:00)
[2021-07-18] MEDS: PANTOPRAZOLE 40MG TAB (PROTONIX) PO SCH ×2 (09:04→21:00)
[2021-07-18] MEDS: LORazepam 1 MG TAB PO SCH ×2 (09:05→21:00)
[2021-07-18] MEDS: ENOXAPARIN 40MG/0.4ML SYRINGE (J1650 PER 10MG) SC SCH (09:05)
[2021-07-18] MEDS: SENOKOT S TAB PO SCH ×2 (09:05→21:00)
[2021-07-18] MEDS: POTASSIUM CHLORIDE 10% LIQ 20 MEQ/15 ML UDC PO SCH (09:05)
[2021-07-18] MEDS: TOPIRAMATE (TopAMAX) 100 MG TAB PO SCH ×2 (09:05→21:00)
[2021-07-18 14:00] VITALS: BP 117/76
[2021-07-18 14:03] LABS: HEMATOCRIT 33.5 % (36.0-47.0); HEMOGLOBIN 10.1 g/dl (12.0-15.5); MEAN CORPUSCULAR HEMOGLOBIN 29.5 pg (27.0-33.0); MEAN CORPUSCULAR HGB CONC 30.1 g/dl (32.0-36.5); PLATELET COUNT, AUTOMATED 546 10^3/uL (150-450); RED BLOOD COUNT 3.42 10^6/uL (4.00-5.40); WHITE BLOOD COUNT 6.3 10^3/uL (4.0-10.0)
[2021-07-18 14:33] LABS: BLOOD UREA NITROGEN 7 MG/DL (7-18); CALCIUM LEVEL 9.3 MG/DL (8.5-10.1); CARBON DIOXIDE LEVEL 29 MEQ/L (21-32); CHLORIDE LEVEL 112 MEQ/L (98-107); GLOMERULAR FILTRATION RATE > 60.0 (>51); GLUCOSE, FASTING 92 MG/DL (70-100); POTASSIUM SERUM 4.3 MEQ/L (3.5-5.1); SODIUM LEVEL 143 MEQ/L (136-145)
[2021-07-18 20:00] VITALS: BP 112/68
[2021-07-18] MEDS: LACTULOSE 20 GM/30 ML SYRUP UD PO SCH (21:00)
[2021-07-18] MEDS: MONTELUKAST 10 MG TAB PO SCH (21:00)
[2021-07-18] MEDS: DULoxetine 30MG CAPSULE (CYMBALTA) PO SCH (21:00)
[2021-07-19 04:46] VITALS: BP 111/71
[2021-07-19] MEDS: LEVOTHYROXINE 112MCG TABLET (0.112MG) PO SCH ×2 (06:09→08:39)
[2021-07-19 08:15] VITALS: BP 111/71
[2021-07-19] MEDS: FOLIC ACID 1 MG TAB PO SCH (08:38)
[2021-07-19] MEDS: SENOKOT S TAB PO SCH ×2 (08:39→21:00)
[2021-07-19] MEDS: TOPIRAMATE (TopAMAX) 100 MG TAB PO SCH ×2 (08:39→21:00)
[2021-07-19] MEDS: BACLOFEN 10 MG TAB PO SCH ×3 (08:39→21:00)
[2021-07-19] MEDS: risperiDONE 0.5 MG TAB PO SCH ×2 (08:39→21:00)
[2021-07-19] MEDS: PANTOPRAZOLE 40MG TAB (PROTONIX) PO SCH ×2 (08:39→21:00)
[2021-07-19] MEDS: LORazepam 1 MG TAB PO SCH ×2 (08:39→21:00)
[2021-07-19] MEDS: POTASSIUM CHLORIDE 10% LIQ 20 MEQ/15 ML UDC PO SCH (08:40)
[2021-07-19] MEDS: ENOXAPARIN 40MG/0.4ML SYRINGE (J1650 PER 10MG) SC SCH (08:40)
[2021-07-19 09:55] LABS: HEMATOCRIT 34.7 % (36.0-47.0); HEMOGLOBIN 10.8 g/dl (12.0-15.5); MEAN CORPUSCULAR HGB CONC 31.1 g/dl (32.0-36.5); MEAN CORPUSCULAR VOLUME 96.4 fl (80.0-96.0); PLATELET COUNT, AUTOMATED 519 10^3/uL (150-450); WHITE BLOOD COUNT 5.5 10^3/uL (4.0-10.0)
[2021-07-19 10:11] LABS: BLOOD UREA NITROGEN 7 MG/DL (7-18); CALCIUM LEVEL 9.8 MG/DL (8.5-10.1); CARBON DIOXIDE LEVEL 29 MEQ/L (21-32); CHLORIDE LEVEL 110 MEQ/L (98-107); CREATININE FOR GFR 0.62 MG/DL (0.55-1.30); GLOMERULAR FILTRATION RATE > 60.0 (>51); GLUCOSE, FASTING 112 MG/DL (70-100); POTASSIUM SERUM 4.2 MEQ/L (3.5-5.1); SODIUM LEVEL 142 MEQ/L (136-145)
[2021-07-19 14:00] VITALS: BP 114/60
[2021-07-19] MEDS: MONTELUKAST 10 MG TAB PO SCH (21:00)
[2021-07-19] MEDS: DULoxetine 30MG CAPSULE (CYMBALTA) PO SCH (21:00)
[2021-07-19] MEDS: LACTULOSE 20 GM/30 ML SYRUP UD PO SCH (21:00)
[2021-07-19 22:00] VITALS: BP 106/75
[2021-07-20 06:00] VITALS: BP 108/76
[2021-07-20 06:56] LABS: HEMATOCRIT 33.3 % (36.0-47.0); HEMOGLOBIN 10.2 g/dl (12.0-15.5); MEAN CORPUSCULAR HEMOGLOBIN 29.3 pg (27.0-33.0); MEAN CORPUSCULAR HGB CONC 30.6 g/dl (32.0-36.5); MEAN CORPUSCULAR VOLUME 95.7 fl (80.0-96.0); PLATELET COUNT, AUTOMATED 538 10^3/uL (150-450); RED BLOOD COUNT 3.48 10^6/uL (4.00-5.40); WHITE BLOOD COUNT 6.1 10^3/uL (4.0-10.0)
[2021-07-20 07:32] LABS: BLOOD UREA NITROGEN 9 MG/DL (7-18); CALCIUM LEVEL 9.3 MG/DL (8.5-10.1); CARBON DIOXIDE LEVEL 25 MEQ/L (21-32); CHLORIDE LEVEL 108 MEQ/L (98-107); CREATININE FOR GFR 0.66 MG/DL (0.55-1.30); GLOMERULAR FILTRATION RATE > 60.0 (>51); GLUCOSE, FASTING 101 MG/DL (70-100); MAGNESIUM LEVEL 1.9 MG/DL (1.8-2.4); POTASSIUM SERUM 3.9 MEQ/L (3.5-5.1); PREALBUMIN 22.4 MG/DL (20.0-40.0); SODIUM LEVEL 140 MEQ/L (136-145)
[2021-07-20] MEDS: LEVOTHYROXINE 112MCG TABLET (0.112MG) PO SCH (08:00)
[2021-07-20] MEDS: LORazepam 1 MG TAB PO SCH (08:23)
[2021-07-20] MEDS: FOLIC ACID 1 MG TAB PO SCH (08:24)
[2021-07-20] MEDS: SENOKOT S TAB PO SCH (08:24)
[2021-07-20] MEDS: PANTOPRAZOLE 40MG TAB (PROTONIX) PO SCH (08:24)
[2021-07-20] MEDS: ENOXAPARIN 40MG/0.4ML SYRINGE (J1650 PER 10MG) SC SCH (08:24)
[2021-07-20] MEDS: risperiDONE 0.5 MG TAB PO SCH (08:24)
[2021-07-20] MEDS: POTASSIUM CHLORIDE 10% LIQ 20 MEQ/15 ML UDC PO SCH (08:24)
[2021-07-20] MEDS: BACLOFEN 10 MG TAB PO SCH (08:24)
[2021-07-20] MEDS: TOPIRAMATE (TopAMAX) 100 MG TAB PO SCH (08:24)
== END 2021-07-20 11:15 | DRG 391 ==
LOC: EDBD 08:42 → M ED 08:42 → M ED INP 13:39 → ENRESERV 21:34 → M MS5PR 07-09 00:25
PROVIDERS: ADMIT Internal Medicine; ATTEND Internal Medicine
DX: R11.10 Vomiting, unspecified (principal); J69.0 Pneumonitis due to inhalation of food and vomit; F72 Severe intellectual disabilities; N39.0 Urinary tract infection, site not specified; E46 Unspecified protein-calorie malnutrition; E03.9 Hypothyroidism, unspecified; Z74.09 Other reduced mobility; Z86.16 Personal history of COVID-19; K59.09 Other constipation; K21.9 Gastro-esophageal reflux disease without esophagitis; D72.829 Elevated white blood cell count, unspecified; Z20.822 Contact with and (suspected) exposure to COVID-19; Z79.899 Other long term (current) drug therapy; H91.92 Unspecified hearing loss, left ear; R50.9 Fever, unspecified; B95.2 Enterococcus as the cause of diseases classified elsewhere; E87.5 Hyperkalemia

== ENCOUNTER → 2021-08-09 | Outpatient (CLI) | payer MEDICARE, MEDICAID ==
[~2021-08-09] MED LIST changes: +BARIUM SULFATE 700 MG TABLET (E-Z-DISK) As Ordered ONE; +DEBR6.5S4 AU; +E-Z-GAS II EFFERVESCENT PACKET (SODIUM BICARB./CITRIC ACID/SIMETHICONE) As Ordered ONE; +E-Z-HD 98% w/w 340GM SUSP BTL As Ordered ONE; +E-Z-PAQUE 96% w/w SUSP 176GM BTL As Ordered ONE; +TRAZ-186 PO; +UNIT1TAB5 PO; +VARIBAR NECTAR 40% w/v 240ML SUSP BTL As Ordered ONE; +VARIBAR PUDDING 40% w/v 230ML TUBE As Ordered ONE
== END ==
LOC: M RAD 08:57
PROVIDERS: ATTEND Family Medicine
DX: R13.10 Dysphagia, unspecified (principal)

== ENCOUNTER 2021-08-17 17:00 | Inpatient (IN) | payer MEDICARE, MEDICAID ==
[~2021-08-17] VITALS: Ht 165.1 cm; Wt 44.4 kg
[~2021-08-17 17:00] MED LIST changes: -BARIUM SULFATE 700 MG TABLET (E-Z-DISK) As Ordered ONE; -E-Z-GAS II EFFERVESCENT PACKET (SODIUM BICARB./CITRIC ACID/SIMETHICONE) As Ordered ONE; -E-Z-HD 98% w/w 340GM SUSP BTL As Ordered ONE; -E-Z-PAQUE 96% w/w SUSP 176GM BTL As Ordered ONE; -VARIBAR NECTAR 40% w/v 240ML SUSP BTL As Ordered ONE; -VARIBAR PUDDING 40% w/v 230ML TUBE As Ordered ONE
[2021-08-17] MEDS ORDERED: NS 1,000 ML IV ONE ×2 (17:25→21:00)
[2021-08-17 18:20] LABS: VENOUS BASE EXCESS 2.3 (-2.0-2.0); VENOUS HCO3 28.5 MEQ/L (23.0-27.0); VENOUS O2 SATURATION 98.6 % (60.0-80.0); VENOUS PARTIAL PRESSURE CO2 51.1 mmHg (38.0-50.0); VENOUS PARTIAL PRESSURE O2 129.1 mmHg (30.0-50.0); VENOUS PH 7.364 UNITS (7.330-7.430); VENOUS STANDARD HCO3 26.6 MEQ/L; VENOUS TOTAL CO2 30.1 MEQ/L (24.0-28.0)
[2021-08-17 18:25] LABS: HEMATOCRIT 35.5 % (36.0-47.0); HEMOGLOBIN 10.7 g/dl (12.0-15.5); LYMPH # 1.1 10^3/uL (1.5-5.0); LYMPH % 16.8 % (24.0-44.0); MEAN CORPUSCULAR HEMOGLOBIN 29.4 pg (27.0-33.0); MEAN CORPUSCULAR HGB CONC 30.1 g/dl (32.0-36.5); MEAN CORPUSCULAR VOLUME 97.5 fl (80.0-96.0); MONO # 0.5 10^3/uL (0.0-0.8); MONO % 6.8 % (2.0-8.0); NEUTROPHILS # 5.1 10^3/uL (1.5-8.5); NEUTROPHILS % 76.1 % (36.0-66.0); RED BLOOD COUNT 3.64 10^6/uL (4.00-5.40); WHITE BLOOD COUNT 6.7 10^3/uL (4.0-10.0)
[2021-08-17] MEDS ORDERED: MIRA3350 PO (18:44)
[2021-08-17] MEDS ORDERED: HOME MED LIST COMPLETE! XX SCH (18:45)
[2021-08-17 18:50] LABS: OSMOLALITY SERUM 294 MOSM/KG (275-295)
[2021-08-17 19:02] LABS: ALT/SGPT 50 U/L (12-78); BILIRUBIN,DIRECT < 0.1 MG/DL (0.0-0.2); BILIRUBIN,TOTAL 0.2 MG/DL (0.2-1.0); BLOOD UREA NITROGEN 12 MG/DL (7-18); CALCIUM LEVEL 9.6 MG/DL (8.5-10.1); CARBON DIOXIDE LEVEL 31 MEQ/L (21-32); CHLORIDE LEVEL 111 MEQ/L (98-107); CREATININE FOR GFR 0.68 MG/DL (0.55-1.30); GLOMERULAR FILTRATION RATE > 60.0 (>51); GLUCOSE, FASTING 76 MG/DL (70-100); POTASSIUM SERUM 3.9 MEQ/L (3.5-5.1); SODIUM LEVEL 145 MEQ/L (136-145); THYROID STIMULATING HORMONE 0.023 uIU/ML (0.358-3.740); TOTAL PROTEIN 6.6 GM/DL (6.4-8.2)
[2021-08-17 19:07] LABS: PLATELET COUNT, AUTOMATED 90 10^3/uL (150-450)
[2021-08-17] MEDS ORDERED: DEXTROSE 50% 50 ML SYRINGE IV STA (19:27)
[2021-08-17] MEDS ORDERED: risperiDONE 0.5 MG TAB PO SCH (21:00)
[2021-08-17] MEDS ORDERED: TOPIRAMATE (TopAMAX) 100 MG TAB PO SCH (21:00)
[2021-08-17] MEDS: MONTELUKAST 10 MG TAB PO SCH (21:00)
[2021-08-17] MEDS ORDERED: SENOKOT S TAB PO SCH (21:00)
[2021-08-17] MEDS: DEXTROSE 50% 50 ML SYRINGE IV PRN (22:00)
[2021-08-17] MEDS: D5W/0.9% SODIUM CHLORIDE 1,000 ML IV SCH (22:20)
[2021-08-17] MEDS ORDERED: BISACODYL ENEMA 10 MG/30 ML PR PRN (22:35)
[2021-08-17] MEDS ORDERED: cefTRIAXone SOD 1 GM in D5W MINI-BAG PLUS 50 ML IV SCH (23:00)
[2021-08-17 23:10] LABS: FREE T4 1.51 NG/DL (0.76-1.46); MAGNESIUM LEVEL 1.6 MG/DL (1.8-2.4); NT-PRO BNP 98 PG/ML (<125); PHOSPHORUS LEVEL 3.8 MG/DL (2.5-4.9)
[2021-08-18] VITALS (12 sets, daily range): BP systolic 92–133; BP diastolic 59–98
[2021-08-18] MEDS: DEXTROSE 50% 50 ML SYRINGE IV PRN (00:30)
[2021-08-18] MEDS ORDERED: GLUCAGON INJ 1MG VIAL SC PRN (00:30)
[2021-08-18] MEDS ORDERED: GLUCOSE 4GM CHEW TABLET PO PRN (00:30)
[2021-08-18] MEDS: MAG SULF 1GM/100ML (MAG RUN) 1 GM in IV 1 EA IV SCH ×2 (02:04→03:22)
[2021-08-18] MEDS ORDERED: METOPROLOL 5 MG/5 ML VIAL IV STA (02:41)
[2021-08-18 02:53] LABS: PERCENT SATURATION 74.2 % (13.2-45.0)
[2021-08-18] MEDS ORDERED: LORazepam 2 MG/ML VIAL IV STA (04:00)
[2021-08-18] MEDS: HYDROCORTISONE 100 MG/2 ML VIAL (J1720 PER 1) IV SCH ×4 (04:32→22:04)
[2021-08-18] MEDS ORDERED: METHOCARBAMOL 1,000 MG/10 ML VIAL (J2800) IV ONE (05:00)
[2021-08-18 05:04] LABS: C REACTIVE PROTEIN QUANTITATIV 6.21 MG/DL (0.00-0.30); MAGNESIUM LEVEL 2.5 MG/DL (1.8-2.4)
[2021-08-18] MEDS ORDERED: LACTOBACILLUS ACIDOPHILUS CAP (BACID) PO SCH (09:00)
[2021-08-18] MEDS ORDERED: ENOXAPARIN 100MG/1ML SYRINGE (J1650 PER 10MG) SC SCH (09:00)
[2021-08-18] MEDS ORDERED: FOLIC ACID 1 MG TAB PO SCH (09:00)
[2021-08-18 09:26] LABS: BLOOD UREA NITROGEN 9 MG/DL (7-18); CALCIUM LEVEL 9.7 MG/DL (8.5-10.1); CARBON DIOXIDE LEVEL 25 MEQ/L (21-32); CHLORIDE LEVEL 112 MEQ/L (98-107); GLOMERULAR FILTRATION RATE > 60.0 (>51); GLUCOSE, FASTING 88 MG/DL (70-100); SODIUM LEVEL 147 MEQ/L (136-145)
[2021-08-18 09:30] LABS: BASO % 0.1 % (0.0-1.0); HEMATOCRIT 35.1 % (36.0-47.0); HEMOGLOBIN 10.7 g/dl (12.0-15.5); LYMPH # 1.7 10^3/uL (1.5-5.0); MEAN CORPUSCULAR HEMOGLOBIN 29.6 pg (27.0-33.0); MEAN CORPUSCULAR HGB CONC 30.5 g/dl (32.0-36.5); MONO # 0.5 10^3/uL (0.0-0.8); MONO % 7.9 % (2.0-8.0); NEUTROPHILS # 4.5 10^3/uL (1.5-8.5); NEUTROPHILS % 66.9 % (36.0-66.0); PLATELET COUNT, AUTOMATED 86 10^3/uL (150-450); RED BLOOD COUNT 3.62 10^6/uL (4.00-5.40); WHITE BLOOD COUNT 6.7 10^3/uL (4.0-10.0)
[2021-08-18] MEDS: LACTULOSE 20 GM/30 ML SYRUP UD PO SCH ×2 (10:27→22:05)
[2021-08-18] MEDS: TOPIRAMATE (TopAMAX) 100 MG TAB PO SCH ×2 (10:27→22:04)
[2021-08-18] MEDS: MIRALAX *UNIT DOSE* 17GM PACKET PO SCH (10:28)
[2021-08-18] MEDS: LEVOTHYROXINE 112MCG TABLET (0.112MG) PO SCH (11:02)
[2021-08-18] MEDS: D5W/0.9% SODIUM CHLORIDE 1,000 ML IV SCH (16:27)
[2021-08-18] MEDS: BENZTROPINE 0.5 MG TAB PO SCH (21:00)
[2021-08-18] MEDS: MONTELUKAST 10 MG TAB PO SCH (22:04)
[2021-08-18] MEDS: risperiDONE 0.5 MG TAB PO SCH (22:04)
[2021-08-18] MEDS: LORazepam 0.5 MG TAB PO SCH (22:05)
[2021-08-19] VITALS: BP 96/55
[2021-08-19] MEDS: D5W/0.9% SODIUM CHLORIDE 1,000 ML IV SCH ×2 (01:00→17:00)
[2021-08-19 04:00] VITALS: BP 115/72
[2021-08-19] MEDS: HYDROCORTISONE 100 MG/2 ML VIAL (J1720 PER 1) IV SCH ×4 (04:59→21:21)
[2021-08-19] MEDS: LEVOTHYROXINE 112MCG TABLET (0.112MG) PO SCH (04:59)
[2021-08-19 07:56] VITALS: BP 111/55
[2021-08-19 08:10] LABS: C-PEPTIDE 3.4 ng/mL (1.1-4.4); INSULIN LEVEL 4.6 uIU/mL (2.6-24.9)
[2021-08-19 08:26] LABS: BASO % 0.2 % (0.0-1.0); HEMATOCRIT 33.9 % (36.0-47.0); HEMOGLOBIN 10.5 g/dl (12.0-15.5); LYMPH # 1.3 10^3/uL (1.5-5.0); LYMPH % 27.4 % (24.0-44.0); MEAN CORPUSCULAR HEMOGLOBIN 29.2 pg (27.0-33.0); MEAN CORPUSCULAR VOLUME 94.2 fl (80.0-96.0); MONO # 0.3 10^3/uL (0.0-0.8); MONO % 5.6 % (2.0-8.0); NEUTROPHILS # 3.1 10^3/uL (1.5-8.5); NEUTROPHILS % 66.6 % (36.0-66.0); PLATELET COUNT, AUTOMATED 91 10^3/uL (150-450); WHITE BLOOD COUNT 4.7 10^3/uL (4.0-10.0)
[2021-08-19 08:48] LABS: BLOOD UREA NITROGEN 9 MG/DL (7-18); CALCIUM LEVEL 9.7 MG/DL (8.5-10.1); CARBON DIOXIDE LEVEL 26 MEQ/L (21-32); CHLORIDE LEVEL 113 MEQ/L (98-107); CREATININE FOR GFR 0.56 MG/DL (0.55-1.30); GLOMERULAR FILTRATION RATE > 60.0 (>51); GLUCOSE, FASTING 112 MG/DL (70-100); POTASSIUM SERUM 3.5 MEQ/L (3.5-5.1); SODIUM LEVEL 145 MEQ/L (136-145)
[2021-08-19] MEDS: MIRALAX *UNIT DOSE* 17GM PACKET PO SCH (10:00)
[2021-08-19] MEDS: LACTULOSE 20 GM/30 ML SYRUP UD PO SCH ×2 (10:07→20:42)
[2021-08-19] MEDS: LORazepam 1 MG TAB PO SCH (10:09)
[2021-08-19] MEDS: risperiDONE 0.5 MG TAB PO SCH ×2 (10:10→20:43)
[2021-08-19] MEDS: TOPIRAMATE (TopAMAX) 100 MG TAB PO SCH ×2 (10:11→20:42)
[2021-08-19] MEDS: BENZTROPINE 0.5 MG TAB PO SCH ×2 (10:11→20:42)
[2021-08-19 12:00] VITALS: BP 110/70
[2021-08-19] MEDS: cefTRIAXone SOD 1 GM in D5W MINI-BAG PLUS 50 ML IV SCH (13:36)
[2021-08-19 16:10] VITALS: BP 122/88
[2021-08-19 20:00] VITALS: BP 139/94
[2021-08-19] MEDS: MONTELUKAST 10 MG TAB PO SCH (20:42)
[2021-08-19] MEDS: LORazepam 0.5 MG TAB PO SCH (20:43)
[2021-08-20] VITALS: BP 144/95
[2021-08-20 04:00] VITALS: BP 137/78
[2021-08-20] MEDS: D5W/0.9% SODIUM CHLORIDE 1,000 ML IV SCH (04:15)
[2021-08-20] MEDS: HYDROCORTISONE 100 MG/2 ML VIAL (J1720 PER 1) IV SCH ×2 (04:19→09:27)
[2021-08-20] MEDS: LEVOTHYROXINE 112MCG TABLET (0.112MG) PO SCH (05:11)
[2021-08-20 06:06] LABS: BASO % 0.1 % (0.0-1.0); HEMATOCRIT 37.2 % (36.0-47.0); HEMOGLOBIN 11.3 g/dl (12.0-15.5); LYMPH # 1.3 10^3/uL (1.5-5.0); LYMPH % 14.6 % (24.0-44.0); MEAN CORPUSCULAR HEMOGLOBIN 29.4 pg (27.0-33.0); MEAN CORPUSCULAR HGB CONC 30.4 g/dl (32.0-36.5); MEAN CORPUSCULAR VOLUME 96.6 fl (80.0-96.0); MONO # 0.6 10^3/uL (0.0-0.8); MONO % 6.2 % (2.0-8.0); NEUTROPHILS % 78.7 % (36.0-66.0); PLATELET COUNT, AUTOMATED 126 10^3/uL (150-450); RED BLOOD COUNT 3.85 10^6/uL (4.00-5.40); WHITE BLOOD COUNT 8.9 10^3/uL (4.0-10.0)
[2021-08-20 06:34] LABS: BLOOD UREA NITROGEN 8 MG/DL (7-18); CALCIUM LEVEL 9.5 MG/DL (8.5-10.1); CARBON DIOXIDE LEVEL 29 MEQ/L (21-32); CHLORIDE LEVEL 116 MEQ/L (98-107); CREATININE FOR GFR 0.72 MG/DL (0.55-1.30); GLOMERULAR FILTRATION RATE > 60.0 (>51); GLUCOSE, FASTING 113 MG/DL (70-100); POTASSIUM SERUM 3.5 MEQ/L (3.5-5.1); SODIUM LEVEL 148 MEQ/L (136-145)
[2021-08-20] MEDS: D5W 1,000 ML IV SCH ×2 (06:55→23:50)
[2021-08-20 07:45] VITALS: BP 160/110
[2021-08-20] MEDS: BENZTROPINE 0.5 MG TAB PO SCH (09:00)
[2021-08-20] MEDS: BACLOFEN 10 MG TAB PO SCH ×3 (09:00→20:37)
[2021-08-20] MEDS: LACTULOSE 20 GM/30 ML SYRUP UD PO SCH ×2 (09:27→20:37)
[2021-08-20] MEDS: risperiDONE 0.5 MG TAB PO SCH ×2 (09:28→20:37)
[2021-08-20] MEDS: TOPIRAMATE (TopAMAX) 100 MG TAB PO SCH ×2 (09:28→20:37)
[2021-08-20] MEDS: MIRALAX *UNIT DOSE* 17GM PACKET PO SCH (09:28)
[2021-08-20] MEDS: LORazepam 1 MG TAB PO SCH (09:28)
[2021-08-20 12:43] VITALS: BP 160/90
[2021-08-20] MEDS: cefTRIAXone SOD 1 GM in D5W MINI-BAG PLUS 50 ML IV SCH (14:05)
[2021-08-20 16:00] VITALS: BP 141/77
[2021-08-20 20:00] VITALS: BP 130/84
[2021-08-20] MEDS: LORazepam 0.5 MG TAB PO SCH (20:37)
[2021-08-20] MEDS: MONTELUKAST 10 MG TAB PO SCH (20:37)
[2021-08-21] VITALS (7 sets, daily range): BP systolic 112–145; BP diastolic 59–93
[2021-08-21] MEDS: LEVOTHYROXINE 112MCG TABLET (0.112MG) PO SCH (05:22)
[2021-08-21 06:04] LABS: BASO % 0.1 % (0.0-1.0); EOS # 0.1 10^3/uL (0.0-0.5); EOS % 0.7 % (0.0-3.0); HEMATOCRIT 37.8 % (36.0-47.0); HEMOGLOBIN 11.7 g/dl (12.0-15.5); LYMPH % 14.4 % (24.0-44.0); MEAN CORPUSCULAR HEMOGLOBIN 29.5 pg (27.0-33.0); MEAN CORPUSCULAR VOLUME 95.5 fl (80.0-96.0); MONO # 1.1 10^3/uL (0.0-0.8); MONO % 7.5 % (2.0-8.0); NEUTROPHILS # 10.8 10^3/uL (1.5-8.5); NEUTROPHILS % 76.9 % (36.0-66.0); PLATELET COUNT, AUTOMATED 144 10^3/uL (150-450); RED BLOOD COUNT 3.96 10^6/uL (4.00-5.40)
[2021-08-21 06:45] LABS: BLOOD UREA NITROGEN 5 MG/DL (7-18); CALCIUM LEVEL 9.9 MG/DL (8.5-10.1); CARBON DIOXIDE LEVEL 30 MEQ/L (21-32); CHLORIDE LEVEL 110 MEQ/L (98-107); CREATININE FOR GFR 0.57 MG/DL (0.55-1.30); GLOMERULAR FILTRATION RATE > 60.0 (>51); GLUCOSE, FASTING 103 MG/DL (70-100); POTASSIUM SERUM 2.9 MEQ/L (3.5-5.1); SODIUM LEVEL 145 MEQ/L (136-145)
[2021-08-21 07:36] LABS: MAGNESIUM LEVEL 1.8 MG/DL (1.8-2.4)
[2021-08-21] MEDS: KCL 10MEQ/100ML SWI (KRUN) 10 MEQ in IV 1 EA IV SCH ×2 (07:41→08:42)
[2021-08-21] MEDS ORDERED: POTASSIUM CHLORIDE 10% LIQ 20 MEQ/15 ML UDC NG ONE (08:00)
[2021-08-21] MEDS: MIRALAX *UNIT DOSE* 17GM PACKET PO SCH (08:41)
[2021-08-21] MEDS: TOPIRAMATE (TopAMAX) 100 MG TAB PO SCH ×2 (08:41→20:53)
[2021-08-21] MEDS: BACLOFEN 10 MG TAB PO SCH ×3 (08:42→20:53)
[2021-08-21] MEDS: LORazepam 1 MG TAB PO SCH (08:42)
[2021-08-21] MEDS: risperiDONE 0.5 MG TAB PO SCH ×2 (08:42→20:53)
[2021-08-21] MEDS: LACTULOSE 20 GM/30 ML SYRUP UD PO SCH ×2 (09:00→20:53)
[2021-08-21] MEDS: cefTRIAXone SOD 1 GM in D5W MINI-BAG PLUS 50 ML IV SCH (13:02)
[2021-08-21] MEDS: MONTELUKAST 10 MG TAB PO SCH (20:53)
[2021-08-21] MEDS: LORazepam 0.5 MG TAB PO SCH (20:53)
[2021-08-22 04:00] VITALS: BP 126/74
[2021-08-22] MEDS: LEVOTHYROXINE 112MCG TABLET (0.112MG) PO SCH (05:18)
[2021-08-22 06:22] LABS: BASO % 0.2 % (0.0-1.0); EOS # 0.1 10^3/uL (0.0-0.5); EOS % 0.8 % (0.0-3.0); HEMATOCRIT 33.2 % (36.0-47.0); HEMOGLOBIN 10.3 g/dl (12.0-15.5); LYMPH # 3.2 10^3/uL (1.5-5.0); LYMPH % 27.2 % (24.0-44.0); MEAN CORPUSCULAR HEMOGLOBIN 29.1 pg (27.0-33.0); MEAN CORPUSCULAR VOLUME 93.8 fl (80.0-96.0); MONO # 1.2 10^3/uL (0.0-0.8); MONO % 10.5 % (2.0-8.0); NEUTROPHILS # 7.1 10^3/uL (1.5-8.5); NEUTROPHILS % 60.9 % (36.0-66.0); PLATELET COUNT, AUTOMATED 197 10^3/uL (150-450); RED BLOOD COUNT 3.54 10^6/uL (4.00-5.40); WHITE BLOOD COUNT 11.6 10^3/uL (4.0-10.0)
[2021-08-22 06:39] LABS: BLOOD UREA NITROGEN 8 MG/DL (7-18); CALCIUM LEVEL 9.1 MG/DL (8.5-10.1); CARBON DIOXIDE LEVEL 29 MEQ/L (21-32); CHLORIDE LEVEL 110 MEQ/L (98-107); CREATININE FOR GFR 0.61 MG/DL (0.55-1.30); GLOMERULAR FILTRATION RATE > 60.0 (>51); GLUCOSE, FASTING 88 MG/DL (70-100); POTASSIUM SERUM 3.2 MEQ/L (3.5-5.1); SODIUM LEVEL 143 MEQ/L (136-145)
[2021-08-22] MEDS ORDERED: POTASSIUM CHLORIDE 10% LIQ 20 MEQ/15 ML UDC NG ONE (07:15)
[2021-08-22 07:42] VITALS: BP 130/85
[2021-08-22] MEDS: MIRALAX *UNIT DOSE* 17GM PACKET PO SCH (08:52)
[2021-08-22] MEDS: LACTULOSE 20 GM/30 ML SYRUP UD PO SCH ×2 (08:52→21:29)
[2021-08-22] MEDS: risperiDONE 0.5 MG TAB PO SCH ×2 (08:54→21:29)
[2021-08-22] MEDS: BACLOFEN 10 MG TAB PO SCH ×3 (08:54→21:29)
[2021-08-22] MEDS: TOPIRAMATE (TopAMAX) 100 MG TAB PO SCH ×2 (08:55→21:29)
[2021-08-22] MEDS: LORazepam 1 MG TAB PO SCH (08:55)
[2021-08-22 12:00] VITALS: BP 113/85
[2021-08-22] MEDS: cefTRIAXone SOD 1 GM in D5W MINI-BAG PLUS 50 ML IV SCH (14:23)
[2021-08-22 15:45] VITALS: BP 117/76
[2021-08-22 20:00] VITALS: BP 123/79
[2021-08-22] MEDS: LORazepam 0.5 MG TAB PO SCH (21:28)
[2021-08-22] MEDS: MONTELUKAST 10 MG TAB PO SCH (21:29)
[2021-08-23] VITALS (7 sets, daily range): BP systolic 90–123; BP diastolic 54–87
[2021-08-23 04:31] LABS: BASO % 0.3 % (0.0-1.0); EOS # 0.1 10^3/uL (0.0-0.5); EOS % 1.3 % (0.0-3.0); HEMATOCRIT 32.5 % (36.0-47.0); HEMOGLOBIN 10.1 g/dl (12.0-15.5); LYMPH # 2.1 10^3/uL (1.5-5.0); LYMPH % 31.7 % (24.0-44.0); MEAN CORPUSCULAR HEMOGLOBIN 29.5 pg (27.0-33.0); MEAN CORPUSCULAR HGB CONC 31.1 g/dl (32.0-36.5); MONO # 0.7 10^3/uL (0.0-0.8); MONO % 10.4 % (2.0-8.0); NEUTROPHILS # 3.8 10^3/uL (1.5-8.5); NEUTROPHILS % 55.7 % (36.0-66.0); PLATELET COUNT, AUTOMATED 270 10^3/uL (150-450); RED BLOOD COUNT 3.42 10^6/uL (4.00-5.40); WHITE BLOOD COUNT 6.8 10^3/uL (4.0-10.0)
[2021-08-23 04:53] LABS: BLOOD UREA NITROGEN 9 MG/DL (7-18); CALCIUM LEVEL 9.7 MG/DL (8.5-10.1); CARBON DIOXIDE LEVEL 27 MEQ/L (21-32); CHLORIDE LEVEL 112 MEQ/L (98-107); CREATININE FOR GFR 0.46 MG/DL (0.55-1.30); GLOMERULAR FILTRATION RATE > 60.0 (>51); GLUCOSE, FASTING 71 MG/DL (70-100); POTASSIUM SERUM 4.1 MEQ/L (3.5-5.1); SODIUM LEVEL 145 MEQ/L (136-145)
[2021-08-23] MEDS: LEVOTHYROXINE 112MCG TABLET (0.112MG) PO SCH (06:12)
[2021-08-23] MEDS: LACTULOSE 20 GM/30 ML SYRUP UD PO SCH ×3 (09:31→21:13)
[2021-08-23] MEDS: MIRALAX *UNIT DOSE* 17GM PACKET PO SCH (09:31)
[2021-08-23] MEDS: risperiDONE 0.5 MG TAB PO SCH ×3 (09:32→21:12)
[2021-08-23] MEDS: BACLOFEN 10 MG TAB PO SCH ×4 (09:32→21:12)
[2021-08-23] MEDS: LORazepam 1 MG TAB PO SCH (09:32)
[2021-08-23] MEDS: TOPIRAMATE (TopAMAX) 100 MG TAB PO SCH ×3 (09:32→21:13)
[2021-08-23] MEDS: cefTRIAXone SOD 1 GM in D5W MINI-BAG PLUS 50 ML IV SCH (13:53)
[2021-08-23] MEDS: MONTELUKAST 10 MG TAB PO SCH ×2 (21:00→21:13)
[2021-08-23] MEDS: LORazepam 0.5 MG TAB PO SCH ×2 (21:00→21:13)
[2021-08-23] MEDS ORDERED: LORazepam 2 MG/ML VIAL IV ONE (21:50)
[2021-08-23] MEDS ORDERED: ONDANSETRON 4MG/2ML VIAL IV PRN (21:55)
[2021-08-24] MEDS ORDERED: LORazepam 2 MG/ML VIAL IM STA (05:32)
[2021-08-24] MEDS: LEVOTHYROXINE 112MCG TABLET (0.112MG) PO SCH (05:59)
[2021-08-24 06:00] VITALS: BP 115/80
[2021-08-24] MEDS ORDERED: LEVOTHYROXINE 112MCG TABLET (0.112MG) NG SCH (06:00)
[2021-08-24 07:25] LABS: BASO % 0.2 % (0.0-1.0); EOS # 0.1 10^3/uL (0.0-0.5); EOS % 0.6 % (0.0-3.0); HEMATOCRIT 30.5 % (36.0-47.0); HEMOGLOBIN 9.5 g/dl (12.0-15.5); LYMPH % 27.7 % (24.0-44.0); MEAN CORPUSCULAR HEMOGLOBIN 29.1 pg (27.0-33.0); MEAN CORPUSCULAR HGB CONC 31.1 g/dl (32.0-36.5); MEAN CORPUSCULAR VOLUME 93.6 fl (80.0-96.0); MONO # 1.4 10^3/uL (0.0-0.8); MONO % 12.8 % (2.0-8.0); NEUTROPHILS # 6.3 10^3/uL (1.5-8.5); NEUTROPHILS % 58.2 % (36.0-66.0); PLATELET COUNT, AUTOMATED 440 10^3/uL (150-450); RED BLOOD COUNT 3.26 10^6/uL (4.00-5.40); WHITE BLOOD COUNT 10.8 10^3/uL (4.0-10.0)
[2021-08-24 07:55] LABS: BLOOD UREA NITROGEN 10 MG/DL (7-18); CALCIUM LEVEL 9.1 MG/DL (8.5-10.1); CARBON DIOXIDE LEVEL 28 MEQ/L (21-32); CHLORIDE LEVEL 109 MEQ/L (98-107); CREATININE FOR GFR 0.64 MG/DL (0.55-1.30); GLOMERULAR FILTRATION RATE > 60.0 (>51); GLUCOSE, FASTING 87 MG/DL (70-100); POTASSIUM SERUM 4.5 MEQ/L (3.5-5.1); SODIUM LEVEL 142 MEQ/L (136-145)
[2021-08-24] MEDS ORDERED: risperiDONE 0.5 MG TAB NG SCH (09:00)
[2021-08-24] MEDS ORDERED: MIRALAX *UNIT DOSE* 17GM PACKET NG SCH (09:00)
[2021-08-24] MEDS ORDERED: LORazepam 1 MG TAB NG SCH (09:00)
[2021-08-24] MEDS ORDERED: TOPIRAMATE (TopAMAX) 100 MG TAB NG SCH (09:00)
[2021-08-24] MEDS ORDERED: LACTULOSE 20 GM/30 ML SYRUP UD NG SCH (09:00)
[2021-08-24] MEDS: BACLOFEN 10 MG TAB NG SCH ×2 (11:11→16:14)
[2021-08-24 14:00] VITALS: BP 108/66
[2021-08-24] MEDS: TOPIRAMATE (TopAMAX) 100 MG TAB PO SCH (20:59)
[2021-08-24] MEDS: risperiDONE 0.5 MG TAB PO SCH (21:00)
[2021-08-24] MEDS: LACTULOSE 20 GM/30 ML SYRUP UD PO SCH (21:00)
[2021-08-24] MEDS: MONTELUKAST 10 MG TAB PO SCH (21:00)
[2021-08-24] MEDS: BACLOFEN 10 MG TAB PO SCH (21:00)
[2021-08-24] MEDS: LORazepam 0.5 MG TAB PO SCH (21:01)
[2021-08-24 22:00] VITALS: BP 129/76
[2021-08-25 06:00] VITALS: BP 116/80
[2021-08-25 06:07] LABS: BASO % 0.4 % (0.0-1.0); EOS # 0.1 10^3/uL (0.0-0.5); EOS % 1.7 % (0.0-3.0); HEMATOCRIT 33.3 % (36.0-47.0); HEMOGLOBIN 10.2 g/dl (12.0-15.5); LYMPH # 3.1 10^3/uL (1.5-5.0); LYMPH % 40.8 % (24.0-44.0); MEAN CORPUSCULAR HEMOGLOBIN 29.7 pg (27.0-33.0); MEAN CORPUSCULAR HGB CONC 30.6 g/dl (32.0-36.5); MEAN CORPUSCULAR VOLUME 97.1 fl (80.0-96.0); MONO # 1.1 10^3/uL (0.0-0.8); NEUTROPHILS # 3.3 10^3/uL (1.5-8.5); NEUTROPHILS % 42.6 % (36.0-66.0); PLATELET COUNT, AUTOMATED 530 10^3/uL (150-450); RED BLOOD COUNT 3.43 10^6/uL (4.00-5.40); WHITE BLOOD COUNT 7.6 10^3/uL (4.0-10.0)
[2021-08-25] MEDS: LEVOTHYROXINE 112MCG TABLET (0.112MG) PO SCH (06:18)
[2021-08-25 06:27] LABS: BLOOD UREA NITROGEN 8 MG/DL (7-18); CARBON DIOXIDE LEVEL 28 MEQ/L (21-32); CHLORIDE LEVEL 110 MEQ/L (98-107); CREATININE FOR GFR 0.51 MG/DL (0.55-1.30); GLOMERULAR FILTRATION RATE > 60.0 (>51); GLUCOSE, FASTING 82 MG/DL (70-100); POTASSIUM SERUM 4.7 MEQ/L (3.5-5.1); SODIUM LEVEL 143 MEQ/L (136-145)
[2021-08-25] MEDS: LACTULOSE 20 GM/30 ML SYRUP UD PO SCH ×3 (09:00→21:00)
[2021-08-25] MEDS: TOPIRAMATE (TopAMAX) 100 MG TAB PO SCH ×2 (09:01→21:21)
[2021-08-25] MEDS: BACLOFEN 10 MG TAB PO SCH ×3 (09:04→21:21)
[2021-08-25] MEDS: risperiDONE 0.5 MG TAB PO SCH ×2 (09:06→21:21)
[2021-08-25] MEDS: MIRALAX *UNIT DOSE* 17GM PACKET PO SCH (09:07)
[2021-08-25] MEDS: LORazepam 1 MG TAB PO SCH (09:08)
[2021-08-25 14:00] VITALS: BP 115/80
[2021-08-25] MEDS: MONTELUKAST 10 MG TAB PO SCH (21:20)
[2021-08-25] MEDS: LORazepam 0.5 MG TAB PO SCH (21:21)
[2021-08-25 22:00] VITALS: BP 118/81
[2021-08-26 06:00] VITALS: BP 136/79
[2021-08-26] MEDS: LEVOTHYROXINE 112MCG TABLET (0.112MG) PO SCH (06:18)
[2021-08-26] MEDS: LACTULOSE 20 GM/30 ML SYRUP UD PO SCH ×2 (09:00→21:00)
[2021-08-26] MEDS: MIRALAX *UNIT DOSE* 17GM PACKET PO SCH ×2 (09:00→16:24)
[2021-08-26] MEDS: LORazepam 1 MG TAB PO SCH (09:04)
[2021-08-26] MEDS: risperiDONE 0.5 MG TAB PO SCH ×2 (09:05→21:00)
[2021-08-26] MEDS: TOPIRAMATE (TopAMAX) 100 MG TAB PO SCH ×2 (09:05→21:00)
[2021-08-26] MEDS: BACLOFEN 10 MG TAB PO SCH ×3 (09:10→21:00)
[2021-08-26 14:00] VITALS: BP 110/67
[2021-08-26] MEDS: MONTELUKAST 10 MG TAB PO SCH (21:00)
[2021-08-26] MEDS: LORazepam 0.5 MG TAB PO SCH (21:00)
[2021-08-26 22:28] VITALS: BP 110/67
[2021-08-27 06:00] VITALS: BP 105/79
[2021-08-27] MEDS: LEVOTHYROXINE 112MCG TABLET (0.112MG) PO SCH (06:13)
[2021-08-27] MEDS: risperiDONE 1 MG TAB PO SCH ×2 (09:00→21:38)
[2021-08-27] MEDS: BACLOFEN 10 MG TAB PO SCH ×4 (09:00→21:39)
[2021-08-27] MEDS: TOPIRAMATE (TopAMAX) 100 MG TAB PO SCH ×3 (09:00→21:39)
[2021-08-27] MEDS: MIRALAX *UNIT DOSE* 17GM PACKET PO SCH ×2 (09:00→09:18)
[2021-08-27] MEDS: LACTULOSE 20 GM/30 ML SYRUP UD PO SCH ×4 (09:00→21:45)
[2021-08-27] MEDS: LORazepam 0.5 MG TAB PO SCH ×2 (09:00→21:38)
[2021-08-27] MEDS: risperiDONE 0.5 MG TAB PO SCH (09:18)
[2021-08-27] MEDS: LORazepam 1 MG TAB PO SCH (09:18)
[2021-08-27 14:00] VITALS: BP 129/74
[2021-08-27] MEDS: MONTELUKAST 10 MG TAB PO SCH (21:38)
[2021-08-27 21:55] VITALS: BP 107/76
[2021-08-28] MEDS: LEVOTHYROXINE 112MCG TABLET (0.112MG) PO SCH (05:29)
[2021-08-28 06:00] VITALS: BP 107/76
[2021-08-28] MEDS: MIRALAX *UNIT DOSE* 17GM PACKET PO SCH (08:00)
[2021-08-28] MEDS: risperiDONE 1 MG TAB PO SCH ×2 (08:00→17:57)
[2021-08-28] MEDS: LACTULOSE 20 GM/30 ML SYRUP UD PO SCH ×3 (08:00→21:00)
[2021-08-28] MEDS: TOPIRAMATE (TopAMAX) 100 MG TAB PO SCH ×2 (08:00→21:35)
[2021-08-28] MEDS: LORazepam 0.5 MG TAB PO SCH (08:01)
[2021-08-28] MEDS: BACLOFEN 10 MG TAB PO SCH ×3 (08:01→17:57)
[2021-08-28 14:00] VITALS: BP 108/78
[2021-08-28] MEDS: LORazepam 1 MG TAB PO SCH (17:57)
[2021-08-28] MEDS ORDERED: LORazepam 0.5 MG TAB PO SCH (18:00)
[2021-08-28] MEDS: MONTELUKAST 10 MG TAB PO SCH (21:35)
[2021-08-28 22:00] VITALS: BP 108/77
[2021-08-29] MEDS: LEVOTHYROXINE 112MCG TABLET (0.112MG) PO SCH (04:31)
[2021-08-29 06:00] VITALS: BP 102/71
[2021-08-29] MEDS ORDERED: LORazepam 0.5 MG TAB PO SCH (09:00)
[2021-08-29] MEDS: LACTULOSE 20 GM/30 ML SYRUP UD PO SCH ×2 (09:00→21:00)
[2021-08-29] MEDS: MIRALAX *UNIT DOSE* 17GM PACKET PO SCH (09:29)
[2021-08-29] MEDS: BACLOFEN 10 MG TAB PO SCH ×2 (09:29→18:02)
[2021-08-29] MEDS: TOPIRAMATE (TopAMAX) 100 MG TAB PO SCH ×2 (09:29→19:47)
[2021-08-29] MEDS: risperiDONE 1 MG TAB PO SCH ×2 (09:29→18:02)
[2021-08-29 09:36] LABS: BASO % 0.4 % (0.0-1.0); EOS # 0.1 10^3/uL (0.0-0.5); EOS % 0.7 % (0.0-3.0); HEMATOCRIT 35.4 % (36.0-47.0); HEMOGLOBIN 10.7 g/dl (12.0-15.5); LYMPH # 3.3 10^3/uL (1.5-5.0); LYMPH % 44.1 % (24.0-44.0); MEAN CORPUSCULAR HEMOGLOBIN 29.1 pg (27.0-33.0); MEAN CORPUSCULAR HGB CONC 30.2 g/dl (32.0-36.5); MEAN CORPUSCULAR VOLUME 96.2 fl (80.0-96.0); MONO # 0.9 10^3/uL (0.0-0.8); MONO % 11.8 % (2.0-8.0); NEUTROPHILS # 3.2 10^3/uL (1.5-8.5); NEUTROPHILS % 42.7 % (36.0-66.0); PLATELET COUNT, AUTOMATED 792 10^3/uL (150-450); RED BLOOD COUNT 3.68 10^6/uL (4.00-5.40); WHITE BLOOD COUNT 7.4 10^3/uL (4.0-10.0)
[2021-08-29 10:12] LABS: BLOOD UREA NITROGEN 9 MG/DL (7-18); CALCIUM LEVEL 10.3 MG/DL (8.5-10.1); CARBON DIOXIDE LEVEL 27 MEQ/L (21-32); CHLORIDE LEVEL 110 MEQ/L (98-107); CREATININE FOR GFR 0.57 MG/DL (0.55-1.30); GLOMERULAR FILTRATION RATE > 60.0 (>51); GLUCOSE, FASTING 84 MG/DL (70-100); POTASSIUM SERUM 4.6 MEQ/L (3.5-5.1); SODIUM LEVEL 143 MEQ/L (136-145)
[2021-08-29 14:00] VITALS: BP 104/72
[2021-08-29] MEDS: LORazepam 1 MG TAB PO SCH (18:02)
[2021-08-29] MEDS: MONTELUKAST 10 MG TAB PO SCH (19:47)
[2021-08-29 22:00] VITALS: BP 114/68
[2021-08-30] MEDS: LEVOTHYROXINE 112MCG TABLET (0.112MG) PO SCH (06:00)
[2021-08-30] MEDS: TOPIRAMATE (TopAMAX) 100 MG TAB PO SCH ×2 (09:25→20:40)
[2021-08-30] MEDS: BACLOFEN 10 MG TAB PO SCH ×2 (09:25→17:27)
[2021-08-30] MEDS: risperiDONE 1 MG TAB PO SCH ×2 (09:25→17:27)
[2021-08-30] MEDS: LACTULOSE 20 GM/30 ML SYRUP UD PO SCH ×2 (09:26→20:40)
[2021-08-30] MEDS: MIRALAX *UNIT DOSE* 17GM PACKET PO SCH (09:26)
[2021-08-30 14:00] VITALS: BP 108/75
[2021-08-30] MEDS: LORazepam 1 MG TAB PO SCH (17:27)
[2021-08-30] MEDS: MONTELUKAST 10 MG TAB PO SCH (20:40)
[2021-08-30 22:00] VITALS: BP 108/74
[2021-08-31] MEDS: LEVOTHYROXINE 112MCG TABLET (0.112MG) PO SCH (05:14)
[2021-08-31 06:00] VITALS: BP 105/72
[2021-08-31] MEDS: TOPIRAMATE (TopAMAX) 100 MG TAB PO SCH ×2 (08:56→21:00)
[2021-08-31] MEDS: MIRALAX *UNIT DOSE* 17GM PACKET PO SCH (08:56)
[2021-08-31] MEDS: BACLOFEN 10 MG TAB PO SCH ×2 (08:56→17:17)
[2021-08-31] MEDS: risperiDONE 1 MG TAB PO SCH ×2 (08:56→17:17)
[2021-08-31] MEDS: LACTULOSE 20 GM/30 ML SYRUP UD PO SCH ×2 (09:00→22:05)
[2021-08-31] MEDS ORDERED: ACETAMINOPHEN TAB 650MG DOSE (2X325MG) PO PRN (11:10)
[2021-08-31 14:00] VITALS: BP 126/84
[2021-08-31] MEDS: LORazepam 1 MG TAB PO SCH (17:17)
[2021-08-31 22:00] VITALS: BP 123/81
[2021-08-31] MEDS: MONTELUKAST 10 MG TAB PO SCH (22:04)
[2021-09-01] MEDS: LEVOTHYROXINE 112MCG TABLET (0.112MG) PO SCH (05:46)
[2021-09-01 06:00] VITALS: BP 127/81
[2021-09-01] MEDS: LACTULOSE 20 GM/30 ML SYRUP UD PO SCH ×2 (09:00→21:00)
[2021-09-01] MEDS: MIRALAX *UNIT DOSE* 17GM PACKET PO SCH (09:00)
[2021-09-01] MEDS: risperiDONE 1 MG TAB PO SCH ×2 (09:39→17:51)
[2021-09-01] MEDS: BACLOFEN 10 MG TAB PO SCH ×2 (09:39→17:51)
[2021-09-01] MEDS: TOPIRAMATE (TopAMAX) 100 MG TAB PO SCH ×2 (09:41→21:00)
[2021-09-01] MEDS: D5W/0.9% SODIUM CHLORIDE 1,000 ML IV SCH ×2 (11:05→21:05)
[2021-09-01 13:00] VITALS: BP 136/90
[2021-09-01] MEDS ORDERED: propofoL 200 MG/20 ML VIAL As Ordered ONE (15:08)
[2021-09-01] MEDS ORDERED: ROCURONIUM BROMIDE 50 MG/5 ML VIAL As Ordered ONE (15:08)
[2021-09-01] MEDS ORDERED: MIDAZOLAM INJ 2MG/2ML VIAL (J2250 PER 1MG) As Ordered ONE (15:08)
[2021-09-01] MEDS ORDERED: LIDOCAINE 2% 100MG/5ML SDV (FOR ANES.) As Ordered ONE (15:08)
[2021-09-01] MEDS ORDERED: ONDANSETRON 4MG/2ML VIAL As Ordered ONE ×2 (15:08→15:50)
[2021-09-01] MEDS ORDERED: fentaNYL 100 MCG/2 ML INJECTION As Ordered ONE (15:08)
[2021-09-01] MEDS ORDERED: PHENYLephrine 500MCG 5ML (100MCG/ML) SYRINGE As Ordered ONE (15:31)
[2021-09-01 17:00] VITALS: BP 130/88
[2021-09-01] MEDS: LORazepam 1 MG TAB PO SCH (17:51)
[2021-09-01] MEDS: MONTELUKAST 10 MG TAB PO SCH (21:00)
[2021-09-01 22:00] VITALS: BP 105/70
[2021-09-02] MEDS: LEVOTHYROXINE 112MCG TABLET (0.112MG) PO SCH (05:54)
[2021-09-02 06:00] VITALS: BP 109/74
[2021-09-02] MEDS: D5W/0.9% SODIUM CHLORIDE 1,000 ML IV SCH (07:05)
[2021-09-02] MEDS: LACTULOSE 20 GM/30 ML SYRUP UD PO SCH ×2 (09:00→09:15)
[2021-09-02] MEDS: MIRALAX *UNIT DOSE* 17GM PACKET PO SCH ×2 (09:00→09:14)
[2021-09-02] MEDS: TOPIRAMATE (TopAMAX) 100 MG TAB PO SCH (09:13)
[2021-09-02] MEDS: BACLOFEN 10 MG TAB PO SCH (09:14)
[2021-09-02] MEDS: risperiDONE 1 MG TAB PO SCH (09:14)
[2021-09-02] MEDS ORDERED: ATIV1TAB7 PO ×2 (12:36→14:43)
[2021-09-02] MEDS ORDERED: BACL10TA2 PO ×2 (12:36→14:42)
[2021-09-02] MEDS ORDERED: RISP-7 PO (12:36)
[2021-09-02] MEDS ORDERED: LEVO100T5 PO (12:38)
[2021-09-02 14:00] VITALS: BP 104/65
[2021-09-02] MEDS ORDERED: RISP1TAB42 PO (14:41)
== END 2021-09-02 14:55 | disposition home or self-care (01) | DRG 640 ==
LOC: M ED 17:00 → EDBD 17:00 → M ED INP 17:01 → M PCU 08-18 01:04 → OBSVTOIN 08-18 08:08 → M MS5PR 08-23 17:25
PROVIDERS: ADMIT Internal Medicine; ATTEND Internal Medicine Nephrology
PROC: 4A0 Measurement and Monitoring, Physiological Systems, Measurement (ICD-10-PCS; principal; 2021-08-18)
PROC: 0DH63UZ Insertion of Feeding Device into Stomach, Percutaneous Approach (ICD-10-PCS; 2021-09-01)
DX: E16.2 Hypoglycemia, unspecified (principal); G93.41 Metabolic encephalopathy; E43 Unspecified severe protein-calorie malnutrition; N39.0 Urinary tract infection, site not specified; I48.92 Unspecified atrial flutter; F72 Severe intellectual disabilities; I47.1 Supraventricular tachycardia; Z68.1 Body mass index [BMI] 19.9 or less, adult; E03.9 Hypothyroidism, unspecified; D56.3 Thalassemia minor; Z86.16 Personal history of COVID-19; Z74.09 Other reduced mobility; H91.92 Unspecified hearing loss, left ear; B96.20 Unspecified Escherichia coli [E. coli] as the cause of diseases classified elsewhere; D64.9 Anemia, unspecified; Z79.899 Other long term (current) drug therapy; Z79.2 Long term (current) use of antibiotics; Z20.822 Contact with and (suspected) exposure to COVID-19; R13.10 Dysphagia, unspecified; K21.9 Gastro-esophageal reflux disease without esophagitis; K59.00 Constipation, unspecified; R63.4 Abnormal weight loss; E87.6 Hypokalemia

== ENCOUNTER → 2021-09-06 | Outpatient (CLI) | payer MEDICARE, MEDICAID ==
[~2021-09-06] MED LIST changes: +RISP-8 PO; +SYNT100T PO
[2021-09-06 09:35] LABS: BASO # 0.1 10^3/uL (0.0-0.2); BASO % 0.4 % (0.0-1.0); EOS # 0.1 10^3/uL (0.0-0.5); EOS % 0.3 % (0.0-3.0); HEMATOCRIT 36.6 % (36.0-47.0); HEMOGLOBIN 11.1 g/dl (12.0-15.5); LYMPH # 2.3 10^3/uL (1.5-5.0); LYMPH % 12.1 % (24.0-44.0); MEAN CORPUSCULAR HEMOGLOBIN 29.1 pg (27.0-33.0); MEAN CORPUSCULAR HGB CONC 30.3 g/dl (32.0-36.5); MEAN CORPUSCULAR VOLUME 95.8 fl (80.0-96.0); MONO # 1.4 10^3/uL (0.0-0.8); MONO % 7.4 % (2.0-8.0); NEUTROPHILS # 14.8 10^3/uL (1.5-8.5); NEUTROPHILS % 78.9 % (36.0-66.0); PLATELET COUNT, AUTOMATED 423 10^3/uL (150-450); RED BLOOD COUNT 3.82 10^6/uL (4.00-5.40); WHITE BLOOD COUNT 18.8 10^3/uL (4.0-10.0)
[2021-09-06 10:10] LABS: IMMUNOGLOBULIN G 1580 MG/DL (681-1648); TOTAL PROTEIN 7.7 GM/DL (6.4-8.2)
[2021-09-06 10:21] LABS: HEPATITIS B SURFACE ANTIGEN NEGATIVE (NEGATIVE)
[2021-09-06 10:49] LABS: HEPATITIS C VIRUS ABY INDEX 0.2 INDEX (<0.8)
[2021-09-06 10:50] LABS: HEPATITIS B CORE ANTIBODY IGM NEGATIVE (NEGATIVE)
[2021-09-08 13:15] LABS: ALBUMIN 3.38 GM/DL (3.29-5.55); ALBUMIN % 43.9 % (55.8-66.1); ALPHA-1-GLOBULIN % 7.6 % (2.9-4.9); ALPHA-1-GLOBULINS 0.59 GM/DL (0.17-0.41); ALPHA-2-GLOBULINS 1.19 GM/DL (0.42-0.99); ALPHA-2-GLOBULINS % 15.5 % (7.1-11.8); BETA-1-GLOBULINS 0.43 GM/DL (0.28-0.60); BETA-1-GLOBULINS % 5.6 % (4.7-7.2); BETA-2-GLOBULINS 0.65 GM/DL (0.19-0.55); BETA-2-GLOBULINS % 8.5 % (3.2-6.5); GAMMA GLOBULIN % 18.9 % (11.1-18.8); GAMMA GLOBULINS 1.46 GM/DL (0.65-1.58)
== END ==
LOC: M PLALAB 08:37 → M LAB 08:47
PROVIDERS: ATTEND Internal Medicine Hematology & Oncology
DX: D64.9 Anemia, unspecified (principal); R77.9 Abnormality of plasma protein, unspecified

== ENCOUNTER 2021-09-08 17:12 | Inpatient (IN) | payer MEDICARE, MEDICAID ==
[~2021-09-08] VITALS: Ht 170.2 cm; Wt 43.8 kg
[~2021-09-08 17:12] MED LIST changes: -RISP-8 PO; -SYNT100T PO
[2021-09-08 20:21] LABS: BASO # 0.1 10^3/uL (0.0-0.2); BASO % 0.5 % (0.0-1.0); EOS # 0.2 10^3/uL (0.0-0.5); EOS % 1.4 % (0.0-3.0); HEMATOCRIT 30.7 % (36.0-47.0); HEMOGLOBIN 9.7 g/dl (12.0-15.5); LYMPH # 2.3 10^3/uL (1.5-5.0); LYMPH % 14.4 % (24.0-44.0); MEAN CORPUSCULAR HEMOGLOBIN 29.4 pg (27.0-33.0); MEAN CORPUSCULAR HGB CONC 31.6 g/dl (32.0-36.5); MONO # 1.2 10^3/uL (0.0-0.8); MONO % 7.8 % (2.0-8.0); NEUTROPHILS # 11.9 10^3/uL (1.5-8.5); NEUTROPHILS % 74.8 % (36.0-66.0); PLATELET COUNT, AUTOMATED 427 10^3/uL (150-450); WHITE BLOOD COUNT 15.9 10^3/uL (4.0-10.0)
[2021-09-08 20:54] LABS: ALBUMIN 2.5 GM/DL (3.2-5.2); ALT/SGPT 25 U/L (12-78); BILIRUBIN,TOTAL 0.3 MG/DL (0.2-1.0); BLOOD UREA NITROGEN 18 MG/DL (7-18); CALCIUM LEVEL 9.6 MG/DL (8.5-10.1); CARBON DIOXIDE LEVEL 27 MEQ/L (21-32); CHLORIDE LEVEL 101 MEQ/L (98-107); CREATININE FOR GFR 0.54 MG/DL (0.55-1.30); GLOMERULAR FILTRATION RATE > 60.0 (>51); GLUCOSE, FASTING 96 MG/DL (70-100); POTASSIUM SERUM 3.6 MEQ/L (3.5-5.1); SODIUM LEVEL 137 MEQ/L (136-145); TOTAL PROTEIN 7.4 GM/DL (6.4-8.2)
[2021-09-08] MEDS ORDERED: propofoL 200 MG/20 ML VIAL As Ordered ONE (20:55)
[2021-09-08] MEDS ORDERED: fentaNYL 100 MCG/2 ML INJECTION As Ordered ONE (20:55)
[2021-09-08] MEDS ORDERED: MIDAZOLAM INJ 2MG/2ML VIAL (J2250 PER 1MG) As Ordered ONE (20:55)
[2021-09-08] MEDS ORDERED: LIDOCAINE 2% 100MG/5ML SDV (FOR ANES.) As Ordered ONE (20:55)
[2021-09-08 21:00] LABS: ERYTHROCYTE SEDIMENTATION RATE 98 mm/hr (0-30)
[2021-09-08] MEDS ORDERED: ONDANSETRON 4MG/2ML VIAL IV PRN (22:00)
[2021-09-08] MEDS ORDERED: fentaNYL 100 MCG/2 ML INJECTION IV PRN (22:00)
[2021-09-08] MEDS ORDERED: LR 1,000 ML IV SCH (22:00)
[2021-09-08 23:03] VITALS: BP 94/62
[2021-09-08] MEDS ORDERED: SENN8.6T28 PO (23:05)
[2021-09-08] MEDS ORDERED: DEBR6.5S4 AU (23:05)
[2021-09-08] MEDS ORDERED: LORA1TAB4 PO (23:05)
[2021-09-08] MEDS ORDERED: RISP-7 PO (23:05)
[2021-09-08] MEDS ORDERED: SYNT100T PO (23:05)
[2021-09-08 23:43] VITALS: BP 97/66
[2021-09-09] MEDS ORDERED: RISP-8 PO (00:17)
[2021-09-09] MEDS ORDERED: BACL10TA2 PO (00:17)
[2021-09-09] MEDS ORDERED: HOME MED LIST COMPLETE! XX SCH (00:20)
[2021-09-09 01:09] VITALS: BP 98/66
[2021-09-09 02:14] VITALS: BP 99/65
[2021-09-09 06:26] VITALS: BP 114/67
[2021-09-09] MEDS: HEPARIN SOD (PORCINE) 5000UNITS/ML 1ML VIAL/SYRINGE SC SCH ×3 (06:35→22:07)
[2021-09-09 07:37] LABS: BLOOD UREA NITROGEN 14 MG/DL (7-18); CALCIUM LEVEL 9.5 MG/DL (8.5-10.1); CARBON DIOXIDE LEVEL 30 MEQ/L (21-32); CHLORIDE LEVEL 103 MEQ/L (98-107); CREATININE FOR GFR 0.44 MG/DL (0.55-1.30); FREE T4 1.33 NG/DL (0.76-1.46); GLOMERULAR FILTRATION RATE > 60.0 (>51); GLUCOSE, FASTING 82 MG/DL (70-100); SODIUM LEVEL 139 MEQ/L (136-145); THYROID STIMULATING HORMONE 0.317 uIU/ML (0.358-3.740)
[2021-09-09] MEDS ORDERED: FLEET OIL RETENTION ENEMA PR PRN (09:00)
[2021-09-09] MEDS ORDERED: FLEET ENEMA PR PRN (09:00)
[2021-09-09] MEDS ORDERED: MIRALAX *UNIT DOSE* 17GM PACKET PO SCH (09:00)
[2021-09-09] MEDS ORDERED: BISACODYL ENEMA 10 MG/30 ML PR PRN (09:00)
[2021-09-09] MEDS ORDERED: MOM 30ML SUSPENSION UDC PO PRN (09:00)
[2021-09-09 10:03] LABS: HEMATOCRIT 29.9 % (36.0-47.0); HEMOGLOBIN 9.2 g/dl (12.0-15.5); MEAN CORPUSCULAR HEMOGLOBIN 29.4 pg (27.0-33.0); MEAN CORPUSCULAR HGB CONC 30.8 g/dl (32.0-36.5); MEAN CORPUSCULAR VOLUME 95.5 fl (80.0-96.0); PLATELET COUNT, AUTOMATED 452 10^3/uL (150-450); RED BLOOD COUNT 3.13 10^6/uL (4.00-5.40); WHITE BLOOD COUNT 15.2 10^3/uL (4.0-10.0)
[2021-09-09] MEDS: SENNA 8.6 MG TAB (SENOKOT) PO SCH ×2 (11:09→22:06)
[2021-09-09] MEDS: BACLOFEN 10 MG TAB PO SCH ×2 (11:10→22:07)
[2021-09-09] MEDS: risperiDONE 1 MG TAB PO SCH ×2 (11:10→22:07)
[2021-09-09] MEDS: FOLIC ACID 1 MG TAB PO SCH (11:10)
[2021-09-09] MEDS: TOPIRAMATE (TopAMAX) 100 MG TAB PO SCH ×2 (11:10→22:07)
[2021-09-09 14:00] VITALS: BP 108/68
[2021-09-09 21:40] VITALS: BP 151/71
[2021-09-09] MEDS: MONTELUKAST 10 MG TAB PO SCH (22:05)
[2021-09-09] MEDS: LORazepam 1 MG TAB PO SCH (22:05)
[2021-09-10] MEDS: HEPARIN SOD (PORCINE) 5000UNITS/ML 1ML VIAL/SYRINGE SC SCH ×3 (05:22→22:56)
[2021-09-10 05:24] VITALS: BP 102/68
[2021-09-10 07:12] LABS: BASO # 0.1 10^3/uL (0.0-0.2); EOS # 0.3 10^3/uL (0.0-0.5); HEMATOCRIT 31.2 % (36.0-47.0); HEMOGLOBIN 9.7 g/dl (12.0-15.5); LYMPH # 2.8 10^3/uL (1.5-5.0); LYMPH % 33.3 % (24.0-44.0); MEAN CORPUSCULAR HGB CONC 31.1 g/dl (32.0-36.5); MEAN CORPUSCULAR VOLUME 93.1 fl (80.0-96.0); MONO # 0.9 10^3/uL (0.0-0.8); NEUTROPHILS # 4.2 10^3/uL (1.5-8.5); NEUTROPHILS % 50.5 % (36.0-66.0); PLATELET COUNT, AUTOMATED 468 10^3/uL (150-450); RED BLOOD COUNT 3.35 10^6/uL (4.00-5.40); WHITE BLOOD COUNT 8.3 10^3/uL (4.0-10.0)
[2021-09-10 07:37] LABS: ALBUMIN 2.4 GM/DL (3.2-5.2); ALT/SGPT 24 U/L (12-78); BILIRUBIN,TOTAL 0.4 MG/DL (0.2-1.0); BLOOD UREA NITROGEN 10 MG/DL (7-18); CALCIUM LEVEL 9.3 MG/DL (8.5-10.1); CARBON DIOXIDE LEVEL 31 MEQ/L (21-32); CHLORIDE LEVEL 103 MEQ/L (98-107); CREATININE FOR GFR 0.52 MG/DL (0.55-1.30); GLOMERULAR FILTRATION RATE > 60.0 (>51); GLUCOSE, FASTING 81 MG/DL (70-100); POTASSIUM SERUM 3.4 MEQ/L (3.5-5.1); SODIUM LEVEL 140 MEQ/L (136-145); TOTAL PROTEIN 6.9 GM/DL (6.4-8.2)
[2021-09-10] MEDS: TOPIRAMATE (TopAMAX) 100 MG TAB PO SCH ×2 (10:16→20:17)
[2021-09-10] MEDS: SENNA 8.6 MG TAB (SENOKOT) PO SCH ×2 (10:16→20:15)
[2021-09-10] MEDS: risperiDONE 1 MG TAB PO SCH ×2 (10:16→20:18)
[2021-09-10] MEDS: BACLOFEN 10 MG TAB PO SCH ×2 (10:16→20:14)
[2021-09-10] MEDS: FOLIC ACID 1 MG TAB PO SCH (10:16)
[2021-09-10 10:51] LABS: MAGNESIUM LEVEL 2.1 MG/DL (1.8-2.4)
[2021-09-10] MEDS ORDERED: POTASSIUM CHLORIDE 10% LIQ 20 MEQ/15 ML UDC PO ONE (11:00)
[2021-09-10] MEDS: LR 1,000 ML IV SCH ×2 (11:23→22:40)
[2021-09-10] MEDS: METOCLOPRAMIDE INJ 10MG/2ML VIAL (J2765 PER 1) IV SCH ×2 (13:20→18:14)
[2021-09-10 14:00] VITALS: BP 105/71
[2021-09-10] MEDS: MAALOX TOP SCH (14:08)
[2021-09-10] MEDS: DESITIN TOP SCH (14:08)
[2021-09-10] MEDS: CHOLESTYRAMINE TOP SCH (14:08)
[2021-09-10] MEDS ORDERED: POTASSIUM CHLORIDE 10MEQ SR TABLET PO ONE (15:30)
[2021-09-10 19:52] VITALS: BP 107/77
[2021-09-10] MEDS: MONTELUKAST 10 MG TAB PO SCH (20:15)
[2021-09-10] MEDS: LORazepam 1 MG TAB PO SCH (20:15)
[2021-09-11] MEDS: METOCLOPRAMIDE INJ 10MG/2ML VIAL (J2765 PER 1) IV SCH ×4 (00:18→18:09)
[2021-09-11] MEDS ORDERED: KETOROLAC 30 MG/ML 1ML VIAL IV PRN (01:05)
[2021-09-11 02:00] VITALS: BP 116/64
[2021-09-11] MEDS: MORPHINE 2 MG/ML 1ML VIAL IV PRN ×2 (02:50→11:29)
[2021-09-11] MEDS ORDERED: LORazepam 2 MG/ML VIAL IV ONE (04:05)
[2021-09-11] MEDS ORDERED: LORazepam 2 MG/ML VIAL As Ordered ONE (04:17)
[2021-09-11] MEDS ORDERED: OLANZapine INTRAMUSCULAR 10MG VIAL IM ONE ×2 (04:35→21:20)
[2021-09-11] MEDS ORDERED: HYDROMORPHONE HCL 0.5 MG/ 0.5 ML SYRINGE (J1170 PER 1) IV ONE (04:45)
[2021-09-11] MEDS: HEPARIN SOD (PORCINE) 5000UNITS/ML 1ML VIAL/SYRINGE SC SCH ×3 (06:00→20:38)
[2021-09-11] MEDS: LR 1,000 ML IV SCH ×2 (08:59→20:36)
[2021-09-11 10:00] VITALS: BP 158/103
[2021-09-11] MEDS: SENNA 8.6 MG TAB (SENOKOT) PO SCH ×2 (10:09→20:38)
[2021-09-11] MEDS: BACLOFEN 10 MG TAB PO SCH ×2 (10:09→20:38)
[2021-09-11] MEDS: TOPIRAMATE (TopAMAX) 100 MG TAB PO SCH ×2 (10:09→20:38)
[2021-09-11] MEDS: FOLIC ACID 1 MG TAB PO SCH (10:09)
[2021-09-11] MEDS: risperiDONE 1 MG TAB PO SCH ×2 (10:09→20:37)
[2021-09-11] MEDS: MAALOX TOP SCH (10:10)
[2021-09-11] MEDS: CHOLESTYRAMINE TOP SCH (10:10)
[2021-09-11] MEDS: DESITIN TOP SCH (10:10)
[2021-09-11] MEDS: LEVOTHYROXINE 88MCG TABLET (0.088 MG) PO SCH (10:19)
[2021-09-11 11:09] LABS: HEMATOCRIT 33.2 % (36.0-47.0); HEMOGLOBIN 10.1 g/dl (12.0-15.5); MEAN CORPUSCULAR HEMOGLOBIN 29.1 pg (27.0-33.0); MEAN CORPUSCULAR HGB CONC 30.4 g/dl (32.0-36.5); MEAN CORPUSCULAR VOLUME 95.7 fl (80.0-96.0); PLATELET COUNT, AUTOMATED 476 10^3/uL (150-450); RED BLOOD COUNT 3.47 10^6/uL (4.00-5.40); WHITE BLOOD COUNT 9.7 10^3/uL (4.0-10.0)
[2021-09-11 11:30] LABS: BLOOD UREA NITROGEN 12 MG/DL (7-18); CALCIUM LEVEL 9.6 MG/DL (8.5-10.1); CARBON DIOXIDE LEVEL 31 MEQ/L (21-32); CHLORIDE LEVEL 105 MEQ/L (98-107); CREATININE FOR GFR 0.56 MG/DL (0.55-1.30); GLOMERULAR FILTRATION RATE > 60.0 (>51); GLUCOSE, FASTING 77 MG/DL (70-100); MAGNESIUM LEVEL 2.1 MG/DL (1.8-2.4); POTASSIUM SERUM 3.4 MEQ/L (3.5-5.1); SODIUM LEVEL 143 MEQ/L (136-145)
[2021-09-11 17:12] VITALS: BP 117/65
[2021-09-11] MEDS: LORazepam 1 MG TAB PO SCH (20:38)
[2021-09-11] MEDS: MONTELUKAST 10 MG TAB PO SCH (20:38)
[2021-09-11 22:30] VITALS: BP 113/64
[2021-09-12] MEDS: METOCLOPRAMIDE INJ 10MG/2ML VIAL (J2765 PER 1) IV SCH ×5 (00:14→23:24)
[2021-09-12] MEDS: MORPHINE 2 MG/ML 1ML VIAL IV PRN ×2 (00:15→23:24)
[2021-09-12 02:00] VITALS: BP 106/62
[2021-09-12] MEDS: LEVOTHYROXINE 88MCG TABLET (0.088 MG) PO SCH (05:17)
[2021-09-12] MEDS: HEPARIN SOD (PORCINE) 5000UNITS/ML 1ML VIAL/SYRINGE SC SCH ×3 (05:17→20:41)
[2021-09-12] MEDS: LR 1,000 ML IV SCH ×2 (05:52→18:08)
[2021-09-12 07:38] LABS: HEMATOCRIT 32.4 % (36.0-47.0); HEMOGLOBIN 9.8 g/dl (12.0-15.5); MEAN CORPUSCULAR HEMOGLOBIN 29.4 pg (27.0-33.0); MEAN CORPUSCULAR HGB CONC 30.2 g/dl (32.0-36.5); MEAN CORPUSCULAR VOLUME 97.3 fl (80.0-96.0); PLATELET COUNT, AUTOMATED 467 10^3/uL (150-450); RED BLOOD COUNT 3.33 10^6/uL (4.00-5.40); WHITE BLOOD COUNT 11.1 10^3/uL (4.0-10.0)
[2021-09-12 08:00] LABS: BLOOD UREA NITROGEN 9 MG/DL (7-18); CALCIUM LEVEL 9.2 MG/DL (8.5-10.1); CARBON DIOXIDE LEVEL 31 MEQ/L (21-32); CHLORIDE LEVEL 105 MEQ/L (98-107); CREATININE FOR GFR 0.54 MG/DL (0.55-1.30); GLOMERULAR FILTRATION RATE > 60.0 (>51); GLUCOSE, FASTING 79 MG/DL (70-100); POTASSIUM SERUM 3.7 MEQ/L (3.5-5.1); SODIUM LEVEL 144 MEQ/L (136-145)
[2021-09-12] MEDS: TOPIRAMATE (TopAMAX) 100 MG TAB PO SCH ×2 (08:03→20:38)
[2021-09-12] MEDS: FOLIC ACID 1 MG TAB PO SCH (08:03)
[2021-09-12] MEDS: SENNA 8.6 MG TAB (SENOKOT) PO SCH ×2 (08:03→20:38)
[2021-09-12] MEDS: risperiDONE 1 MG TAB PO SCH ×2 (08:03→20:38)
[2021-09-12] MEDS: BACLOFEN 10 MG TAB PO SCH ×2 (08:03→20:38)
[2021-09-12] MEDS: DESITIN TOP SCH (08:04)
[2021-09-12] MEDS: CHOLESTYRAMINE TOP SCH (08:04)
[2021-09-12] MEDS: MAALOX TOP SCH (08:04)
[2021-09-12 10:00] VITALS: BP 116/92
[2021-09-12] MEDS: ACETAMINOPHEN TAB 650MG DOSE (2X325MG) PO PRN (10:48)
[2021-09-12] MEDS ORDERED: cefTRIAXone SOD 1 GM in D5W MINI-BAG PLUS 50 ML IV SCH (11:00)
[2021-09-12 14:00] VITALS: BP 117/65
[2021-09-12] MEDS ORDERED: LORazepam 2 MG/ML VIAL IV STA (15:40)
[2021-09-12 17:00] VITALS: BP 114/82
[2021-09-12] MEDS: LORazepam 1 MG TAB PO SCH (20:38)
[2021-09-12] MEDS: MONTELUKAST 10 MG TAB PO SCH (20:38)
[2021-09-12 22:00] VITALS: BP 108/72
[2021-09-13] VITALS (7 sets, daily range): BP systolic 105–114; BP diastolic 72–91
[2021-09-13] MEDS: LR 1,000 ML IV SCH ×2 (05:30→17:23)
[2021-09-13] MEDS: HEPARIN SOD (PORCINE) 5000UNITS/ML 1ML VIAL/SYRINGE SC SCH ×3 (05:38→22:16)
[2021-09-13] MEDS: LEVOTHYROXINE 88MCG TABLET (0.088 MG) PO SCH (05:38)
[2021-09-13] MEDS: METOCLOPRAMIDE INJ 10MG/2ML VIAL (J2765 PER 1) IV SCH ×3 (05:38→17:23)
[2021-09-13 06:51] LABS: HEMATOCRIT 28.2 % (36.0-47.0); HEMOGLOBIN 8.5 g/dl (12.0-15.5); MEAN CORPUSCULAR HEMOGLOBIN 28.9 pg (27.0-33.0); MEAN CORPUSCULAR HGB CONC 30.1 g/dl (32.0-36.5); MEAN CORPUSCULAR VOLUME 95.9 fl (80.0-96.0); PLATELET COUNT, AUTOMATED 377 10^3/uL (150-450); RED BLOOD COUNT 2.94 10^6/uL (4.00-5.40); WHITE BLOOD COUNT 12.2 10^3/uL (4.0-10.0)
[2021-09-13 07:19] LABS: BLOOD UREA NITROGEN 7 MG/DL (7-18); CALCIUM LEVEL 9.1 MG/DL (8.5-10.1); CARBON DIOXIDE LEVEL 28 MEQ/L (21-32); CHLORIDE LEVEL 108 MEQ/L (98-107); CREATININE FOR GFR 0.48 MG/DL (0.55-1.30); GLOMERULAR FILTRATION RATE > 60.0 (>51); GLUCOSE, FASTING 74 MG/DL (70-100); POTASSIUM SERUM 3.8 MEQ/L (3.5-5.1); SODIUM LEVEL 144 MEQ/L (136-145)
[2021-09-13] MEDS: CEFTAROLINE FOSAMIL 600 MG in D5W MINI-BAG PLUS 50 ML IV SCH ×2 (09:57→22:15)
[2021-09-13] MEDS: DESITIN TOP SCH (09:57)
[2021-09-13] MEDS: FOLIC ACID 1 MG TAB PO SCH (09:57)
[2021-09-13] MEDS: MAALOX TOP SCH (09:57)
[2021-09-13] MEDS: SENNA 8.6 MG TAB (SENOKOT) PO SCH ×2 (09:57→22:17)
[2021-09-13] MEDS: risperiDONE 1 MG TAB PO SCH ×2 (09:57→22:18)
[2021-09-13] MEDS: BACLOFEN 10 MG TAB PO SCH ×2 (09:57→22:18)
[2021-09-13] MEDS: CHOLESTYRAMINE TOP SCH (09:57)
[2021-09-13] MEDS: TOPIRAMATE (TopAMAX) 100 MG TAB PO SCH ×2 (09:57→22:17)
[2021-09-13] MEDS: LORazepam 1 MG TAB PO SCH (22:17)
[2021-09-13] MEDS: MONTELUKAST 10 MG TAB PO SCH (22:18)
[2021-09-14] MEDS: METOCLOPRAMIDE INJ 10MG/2ML VIAL (J2765 PER 1) IV SCH ×4 (00:32→18:31)
[2021-09-14 06:00] VITALS: BP 115/83
[2021-09-14] MEDS: LR 1,000 ML IV SCH ×3 (06:00→18:59)
[2021-09-14] MEDS: HEPARIN SOD (PORCINE) 5000UNITS/ML 1ML VIAL/SYRINGE SC SCH ×3 (06:01→22:37)
[2021-09-14] MEDS: LEVOTHYROXINE 88MCG TABLET (0.088 MG) PO SCH (06:01)
[2021-09-14] MEDS: MORPHINE 2 MG/ML 1ML VIAL IV PRN (06:02)
[2021-09-14 07:13] LABS: HEMATOCRIT 31.3 % (36.0-47.0); HEMOGLOBIN 9.4 g/dl (12.0-15.5); MEAN CORPUSCULAR HEMOGLOBIN 29.3 pg (27.0-33.0); MEAN CORPUSCULAR VOLUME 97.5 fl (80.0-96.0); PLATELET COUNT, AUTOMATED 388 10^3/uL (150-450); RED BLOOD COUNT 3.21 10^6/uL (4.00-5.40); WHITE BLOOD COUNT 9.7 10^3/uL (4.0-10.0)
[2021-09-14 07:40] LABS: ALBUMIN 2.1 GM/DL (3.2-5.2); ALT/SGPT 18 U/L (12-78); BILIRUBIN,TOTAL 0.3 MG/DL (0.2-1.0); BLOOD UREA NITROGEN 6 MG/DL (7-18); CALCIUM LEVEL 9.1 MG/DL (8.5-10.1); CARBON DIOXIDE LEVEL 26 MEQ/L (21-32); CHLORIDE LEVEL 107 MEQ/L (98-107); CREATININE FOR GFR 0.56 MG/DL (0.55-1.30); GLOMERULAR FILTRATION RATE > 60.0 (>51); GLUCOSE, FASTING 73 MG/DL (70-100); POTASSIUM SERUM 3.9 MEQ/L (3.5-5.1); SODIUM LEVEL 144 MEQ/L (136-145); TOTAL PROTEIN 6.3 GM/DL (6.4-8.2)
[2021-09-14] MEDS: risperiDONE 1 MG TAB PO SCH ×2 (10:02→22:36)
[2021-09-14] MEDS: CEFTAROLINE FOSAMIL 600 MG in D5W MINI-BAG PLUS 50 ML IV SCH ×2 (10:02→22:36)
[2021-09-14] MEDS: SENNA 8.6 MG TAB (SENOKOT) PO SCH ×2 (10:02→22:36)
[2021-09-14] MEDS: BACLOFEN 10 MG TAB PO SCH ×2 (10:02→22:36)
[2021-09-14] MEDS: TOPIRAMATE (TopAMAX) 100 MG TAB PO SCH ×2 (10:03→22:36)
[2021-09-14] MEDS: MAALOX TOP SCH (10:03)
[2021-09-14] MEDS: FOLIC ACID 1 MG TAB PO SCH (10:03)
[2021-09-14] MEDS: DESITIN TOP SCH (10:03)
[2021-09-14] MEDS: CHOLESTYRAMINE TOP SCH (10:03)
[2021-09-14 14:00] VITALS: BP 112/82
[2021-09-14] MEDS ORDERED: LIDOCAINE 1% MDV 20ML VIAL As Ordered ONE (15:17)
[2021-09-14] MEDS: INSULIN LISPRO (NovoLOG) PER UNIT SC SCH (18:00)
[2021-09-14] MEDS ORDERED: MULTIVITAMIN -ADULT INJECTION 10 ML, ZINC/COPPER/MANGANESE/SELENIUM 1 ML in AMINO AC/EL... IV SCH (18:00)
[2021-09-14 21:43] VITALS: BP 136/92
[2021-09-14] MEDS: MONTELUKAST 10 MG TAB PO SCH (22:36)
[2021-09-14] MEDS: LORazepam 1 MG TAB PO SCH (22:36)
[2021-09-15] MEDS: METOCLOPRAMIDE INJ 10MG/2ML VIAL (J2765 PER 1) IV SCH ×4 (00:51→17:50)
[2021-09-15] MEDS: HEPARIN SOD (PORCINE) 5000UNITS/ML 1ML VIAL/SYRINGE SC SCH ×3 (05:35→21:54)
[2021-09-15] MEDS: LEVOTHYROXINE 88MCG TABLET (0.088 MG) PO SCH (05:37)
[2021-09-15] MEDS: LR 1,000 ML IV SCH ×2 (05:59→17:51)
[2021-09-15 06:00] VITALS: BP 136/89
[2021-09-15] MEDS: INSULIN LISPRO (NovoLOG) PER UNIT SC SCH ×4 (06:00→17:44)
[2021-09-15 07:13] LABS: HEMATOCRIT 32.5 % (36.0-47.0); HEMOGLOBIN 9.8 g/dl (12.0-15.5); MEAN CORPUSCULAR HGB CONC 30.2 g/dl (32.0-36.5); MEAN CORPUSCULAR VOLUME 96.2 fl (80.0-96.0); PLATELET COUNT, AUTOMATED 421 10^3/uL (150-450); RED BLOOD COUNT 3.38 10^6/uL (4.00-5.40); WHITE BLOOD COUNT 7.2 10^3/uL (4.0-10.0)
[2021-09-15 07:41] LABS: ALBUMIN 2.1 GM/DL (3.2-5.2); ALT/SGPT 19 U/L (12-78); BILIRUBIN,TOTAL 0.3 MG/DL (0.2-1.0); BLOOD UREA NITROGEN 4 MG/DL (7-18); CALCIUM LEVEL 9.1 MG/DL (8.5-10.1); CARBON DIOXIDE LEVEL 26 MEQ/L (21-32); CHLORIDE LEVEL 107 MEQ/L (98-107); CREATININE FOR GFR 0.57 MG/DL (0.55-1.30); GLOMERULAR FILTRATION RATE > 60.0 (>51); GLUCOSE, FASTING 76 MG/DL (70-100); POTASSIUM SERUM 3.6 MEQ/L (3.5-5.1); SODIUM LEVEL 145 MEQ/L (136-145); TOTAL PROTEIN 6.4 GM/DL (6.4-8.2)
[2021-09-15] MEDS: SENNA 8.6 MG TAB (SENOKOT) PO SCH ×2 (09:39→21:54)
[2021-09-15] MEDS: risperiDONE 1 MG TAB PO SCH ×2 (09:39→21:54)
[2021-09-15] MEDS: FOLIC ACID 1 MG TAB PO SCH (09:39)
[2021-09-15] MEDS: CEFTAROLINE FOSAMIL 600 MG in D5W MINI-BAG PLUS 50 ML IV SCH ×2 (09:39→21:54)
[2021-09-15] MEDS: DESITIN TOP SCH (09:40)
[2021-09-15] MEDS: BACLOFEN 10 MG TAB PO SCH ×2 (09:40→21:54)
[2021-09-15] MEDS: CHOLESTYRAMINE TOP SCH (09:40)
[2021-09-15] MEDS: TOPIRAMATE (TopAMAX) 100 MG TAB PO SCH ×2 (09:40→21:54)
[2021-09-15] MEDS: MAALOX TOP SCH (09:40)
[2021-09-15 14:00] VITALS: BP 136/89
[2021-09-15] MEDS: SILVER SULFADIAZINE 1% CR 50 GM JAR TOP SCH ×2 (15:02→21:55)
[2021-09-15] MEDS ORDERED: AMINO AC/ELECTROLYTE/DEX/CALC 2,566 ML IV SCH (18:00)
[2021-09-15] MEDS: LORazepam 1 MG TAB PO SCH (21:54)
[2021-09-15] MEDS: MONTELUKAST 10 MG TAB PO SCH (21:55)
[2021-09-15 22:00] VITALS: BP 127/85
[2021-09-16] MEDS: METOCLOPRAMIDE INJ 10MG/2ML VIAL (J2765 PER 1) IV SCH ×4 (00:23→17:25)
[2021-09-16] MEDS: MORPHINE 2 MG/ML 1ML VIAL IV PRN (00:24)
[2021-09-16] MEDS: INSULIN LISPRO (NovoLOG) PER UNIT SC SCH ×3 (05:29→12:00)
[2021-09-16] MEDS: LR 1,000 ML IV SCH ×2 (05:43→17:24)
[2021-09-16] MEDS: HEPARIN SOD (PORCINE) 5000UNITS/ML 1ML VIAL/SYRINGE SC SCH ×3 (05:44→21:19)
[2021-09-16] MEDS: LEVOTHYROXINE 88MCG TABLET (0.088 MG) PO SCH (05:44)
[2021-09-16 06:00] VITALS: BP 141/59
[2021-09-16 07:52] LABS: HEMOGLOBIN 9.1 g/dl (12.0-15.5); MEAN CORPUSCULAR HEMOGLOBIN 29.4 pg (27.0-33.0); MEAN CORPUSCULAR HGB CONC 30.3 g/dl (32.0-36.5); MEAN CORPUSCULAR VOLUME 97.1 fl (80.0-96.0); PLATELET COUNT, AUTOMATED 449 10^3/uL (150-450); RED BLOOD COUNT 3.09 10^6/uL (4.00-5.40); WHITE BLOOD COUNT 7.2 10^3/uL (4.0-10.0)
[2021-09-16 08:14] LABS: ALT/SGPT 16 U/L (12-78); BILIRUBIN,TOTAL 0.3 MG/DL (0.2-1.0); BLOOD UREA NITROGEN 4 MG/DL (7-18); CALCIUM LEVEL 8.5 MG/DL (8.5-10.1); CARBON DIOXIDE LEVEL 27 MEQ/L (21-32); CHLORIDE LEVEL 107 MEQ/L (98-107); CREATININE FOR GFR 0.56 MG/DL (0.55-1.30); GLOMERULAR FILTRATION RATE > 60.0 (>51); GLUCOSE, FASTING 70 MG/DL (70-100); POTASSIUM SERUM 3.3 MEQ/L (3.5-5.1); SODIUM LEVEL 143 MEQ/L (136-145); TOTAL PROTEIN 5.7 GM/DL (6.4-8.2)
[2021-09-16] MEDS: SENNA 8.6 MG TAB (SENOKOT) PO SCH ×2 (09:00→21:00)
[2021-09-16] MEDS: SILVER SULFADIAZINE 1% CR 50 GM JAR TOP SCH ×2 (09:09→21:22)
[2021-09-16] MEDS: LACTOBACILLUS ACIDOPHILUS CAP (BACID) PEG SCH ×2 (09:09→21:20)
[2021-09-16] MEDS: FOLIC ACID 1 MG TAB PO SCH (09:09)
[2021-09-16] MEDS: CEFTAROLINE FOSAMIL 600 MG in D5W MINI-BAG PLUS 50 ML IV SCH (09:09)
[2021-09-16] MEDS: BACLOFEN 10 MG TAB PO SCH ×2 (09:09→21:20)
[2021-09-16] MEDS: risperiDONE 1 MG TAB PO SCH ×2 (09:09→21:20)
[2021-09-16] MEDS: TOPIRAMATE (TopAMAX) 100 MG TAB PO SCH ×2 (09:09→21:20)
[2021-09-16] MEDS: DESITIN TOP SCH (09:10)
[2021-09-16] MEDS: MAALOX TOP SCH (09:10)
[2021-09-16] MEDS: CHOLESTYRAMINE TOP SCH (09:10)
[2021-09-16 14:00] VITALS: BP 122/85
[2021-09-16] MEDS: KCL 10MEQ/100ML SWI (KRUN) 10 MEQ in IV 1 EA IV SCH ×3 (19:10→22:05)
[2021-09-16 19:52] VITALS: BP 109/74
[2021-09-16] MEDS: BACTRIM 160MG/800MG DS TAB PO SCH (21:19)
[2021-09-16] MEDS: MONTELUKAST 10 MG TAB PO SCH (21:20)
[2021-09-16] MEDS: LORazepam 1 MG TAB PO SCH (21:21)
[2021-09-17] MEDS: METOCLOPRAMIDE INJ 10MG/2ML VIAL (J2765 PER 1) IV SCH ×4 (00:49→21:21)
[2021-09-17] MEDS ORDERED: GLUCOSE 4GM CHEW TABLET PO PRN (01:55)
[2021-09-17] MEDS ORDERED: GLUCAGON INJ 1MG VIAL SC PRN (01:55)
[2021-09-17] MEDS ORDERED: DEXTROSE 50% 50 ML SYRINGE IV PRN (01:55)
[2021-09-17] MEDS: HEPARIN SOD (PORCINE) 5000UNITS/ML 1ML VIAL/SYRINGE SC SCH ×3 (05:29→21:21)
[2021-09-17] MEDS: LEVOTHYROXINE 88MCG TABLET (0.088 MG) PO SCH (05:30)
[2021-09-17 06:00] VITALS: BP 106/73
[2021-09-17 06:28] LABS: HEMATOCRIT 31.1 % (36.0-47.0); HEMOGLOBIN 9.5 g/dl (12.0-15.5); MEAN CORPUSCULAR HEMOGLOBIN 29.6 pg (27.0-33.0); MEAN CORPUSCULAR HGB CONC 30.5 g/dl (32.0-36.5); MEAN CORPUSCULAR VOLUME 96.9 fl (80.0-96.0); PLATELET COUNT, AUTOMATED 472 10^3/uL (150-450); RED BLOOD COUNT 3.21 10^6/uL (4.00-5.40); WHITE BLOOD COUNT 5.7 10^3/uL (4.0-10.0)
[2021-09-17 06:57] LABS: ALBUMIN 2.2 GM/DL (3.2-5.2); ALT/SGPT 18 U/L (12-78); BILIRUBIN,TOTAL 0.3 MG/DL (0.2-1.0); BLOOD UREA NITROGEN 3 MG/DL (7-18); CALCIUM LEVEL 8.8 MG/DL (8.5-10.1); CARBON DIOXIDE LEVEL 30 MEQ/L (21-32); CHLORIDE LEVEL 106 MEQ/L (98-107); CREATININE FOR GFR 0.59 MG/DL (0.55-1.30); GLOMERULAR FILTRATION RATE > 60.0 (>51); GLUCOSE, FASTING 76 MG/DL (70-100); POTASSIUM SERUM 3.9 MEQ/L (3.5-5.1); SODIUM LEVEL 145 MEQ/L (136-145); TOTAL PROTEIN 6.2 GM/DL (6.4-8.2)
[2021-09-17] MEDS: SENNA 8.6 MG TAB (SENOKOT) PO SCH ×2 (09:00→21:00)
[2021-09-17] MEDS: risperiDONE 1 MG TAB PO SCH ×3 (09:33→21:19)
[2021-09-17] MEDS: TOPIRAMATE (TopAMAX) 100 MG TAB PO SCH ×3 (09:33→21:19)
[2021-09-17] MEDS: LACTOBACILLUS ACIDOPHILUS CAP (BACID) PO SCH ×3 (09:33→21:19)
[2021-09-17] MEDS: BACTRIM 160MG/800MG DS TAB PO SCH (09:33)
[2021-09-17] MEDS: BACLOFEN 10 MG TAB PO SCH ×3 (09:33→21:19)
[2021-09-17] MEDS: FOLIC ACID 1 MG TAB PO SCH (09:33)
[2021-09-17] MEDS: SILVER SULFADIAZINE 1% CR 50 GM JAR TOP SCH ×2 (09:34→21:21)
[2021-09-17] MEDS: CHOLESTYRAMINE TOP SCH (09:34)
[2021-09-17] MEDS: LR 1,000 ML IV SCH (09:34)
[2021-09-17] MEDS: DESITIN TOP SCH (09:34)
[2021-09-17] MEDS: MAALOX TOP SCH (09:34)
[2021-09-17 14:00] VITALS: BP 124/83
[2021-09-17] MEDS ORDERED: FAT EMULSION IV 250 ML IV ONE (18:00)
[2021-09-17] MEDS: AMINO AC/ELECTROLYTE/DEX/CALC 1,000 ML IV SCH (18:10)
[2021-09-17 20:41] VITALS: BP 130/77
[2021-09-17] MEDS: LORazepam 1 MG TAB PO SCH ×2 (21:00→21:20)
[2021-09-17] MEDS: MONTELUKAST 10 MG TAB PO SCH ×2 (21:00→21:19)
[2021-09-17] MEDS ORDERED: LORazepam 2 MG/ML VIAL IV ONE (23:00)
[2021-09-18 05:20] VITALS: BP 135/82
[2021-09-18] MEDS: LEVOTHYROXINE 88MCG TABLET (0.088 MG) PO SCH (05:54)
[2021-09-18] MEDS: METOCLOPRAMIDE INJ 10MG/2ML VIAL (J2765 PER 1) IV SCH ×2 (05:54→14:01)
[2021-09-18] MEDS: HEPARIN SOD (PORCINE) 5000UNITS/ML 1ML VIAL/SYRINGE SC SCH ×3 (05:54→21:37)
[2021-09-18] MEDS: MORPHINE 2 MG/ML 1ML VIAL IV PRN (05:55)
[2021-09-18 06:59] LABS: HEMATOCRIT 31.8 % (36.0-47.0); HEMOGLOBIN 9.6 g/dl (12.0-15.5); MEAN CORPUSCULAR HEMOGLOBIN 28.9 pg (27.0-33.0); MEAN CORPUSCULAR HGB CONC 30.2 g/dl (32.0-36.5); MEAN CORPUSCULAR VOLUME 95.8 fl (80.0-96.0); PLATELET COUNT, AUTOMATED 472 10^3/uL (150-450); RED BLOOD COUNT 3.32 10^6/uL (4.00-5.40); WHITE BLOOD COUNT 7.4 10^3/uL (4.0-10.0)
[2021-09-18 07:20] LABS: ALBUMIN 2.1 GM/DL (3.2-5.2); ALT/SGPT 20 U/L (12-78); BILIRUBIN,TOTAL 0.1 MG/DL (0.2-1.0); BLOOD UREA NITROGEN 3 MG/DL (7-18); CALCIUM LEVEL 8.9 MG/DL (8.5-10.1); CARBON DIOXIDE LEVEL 27 MEQ/L (21-32); CHLORIDE LEVEL 107 MEQ/L (98-107); CREATININE FOR GFR 0.61 MG/DL (0.55-1.30); GLOMERULAR FILTRATION RATE > 60.0 (>51); GLUCOSE, FASTING 105 MG/DL (70-100); POTASSIUM SERUM 3.1 MEQ/L (3.5-5.1); SODIUM LEVEL 143 MEQ/L (136-145); TOTAL PROTEIN 6.8 GM/DL (6.4-8.2)
[2021-09-18] MEDS: SENNA 8.6 MG TAB (SENOKOT) PO SCH ×2 (09:00→21:38)
[2021-09-18] MEDS: LACTOBACILLUS ACIDOPHILUS CAP (BACID) PO SCH ×2 (09:01→21:39)
[2021-09-18] MEDS: TOPIRAMATE (TopAMAX) 100 MG TAB PO SCH ×2 (09:01→21:39)
[2021-09-18] MEDS: AMINO AC/ELECTROLYTE/DEX/CALC 1,000 ML IV SCH ×2 (09:01→18:08)
[2021-09-18] MEDS: FOLIC ACID 1 MG TAB PO SCH (09:01)
[2021-09-18] MEDS: BACLOFEN 10 MG TAB PO SCH ×2 (09:01→21:52)
[2021-09-18] MEDS: risperiDONE 1 MG TAB PO SCH ×2 (09:01→21:39)
[2021-09-18] MEDS: SILVER SULFADIAZINE 1% CR 50 GM JAR TOP SCH ×2 (09:02→21:57)
[2021-09-18] MEDS: DESITIN TOP SCH (09:02)
[2021-09-18] MEDS: MAALOX TOP SCH (09:02)
[2021-09-18] MEDS: CHOLESTYRAMINE TOP SCH (09:02)
[2021-09-18] MEDS: KCL 10MEQ/100ML SWI (KRUN) 10 MEQ in IV 1 EA IV SCH ×3 (11:00→11:04)
[2021-09-18] MEDS ORDERED: POTASSIUM CHLORIDE 10MEQ SR TABLET PO ONE ×2 (13:30→15:30)
[2021-09-18 14:00] VITALS: BP 126/85
[2021-09-18] MEDS ORDERED: FAT EMULSION IV 250 ML IV ONE (18:00)
[2021-09-18 20:00] VITALS: BP 126/85
[2021-09-18] MEDS: LORazepam 1 MG TAB PO SCH (21:00)
[2021-09-18] MEDS: MONTELUKAST 10 MG TAB PO SCH (21:38)
[2021-09-18] MEDS: METOCLOPRAMIDE 10MG TAB PO SCH (21:38)
[2021-09-19] MEDS: LEVOTHYROXINE 88MCG TABLET (0.088 MG) PO SCH (05:50)
[2021-09-19] MEDS: HEPARIN SOD (PORCINE) 5000UNITS/ML 1ML VIAL/SYRINGE SC SCH ×4 (05:51→21:25)
[2021-09-19 06:00] VITALS: BP 118/87
[2021-09-19 07:16] LABS: HEMATOCRIT 30.8 % (36.0-47.0); HEMOGLOBIN 9.5 g/dl (12.0-15.5); MEAN CORPUSCULAR HEMOGLOBIN 29.4 pg (27.0-33.0); MEAN CORPUSCULAR HGB CONC 30.8 g/dl (32.0-36.5); MEAN CORPUSCULAR VOLUME 95.4 fl (80.0-96.0); PLATELET COUNT, AUTOMATED 552 10^3/uL (150-450); RED BLOOD COUNT 3.23 10^6/uL (4.00-5.40); WHITE BLOOD COUNT 6.4 10^3/uL (4.0-10.0)
[2021-09-19 07:42] LABS: ALBUMIN 2.3 GM/DL (3.2-5.2); ALT/SGPT 21 U/L (12-78); BILIRUBIN,TOTAL < 0.1 MG/DL (0.2-1.0); BLOOD UREA NITROGEN 5 MG/DL (7-18); CALCIUM LEVEL 9.4 MG/DL (8.5-10.1); CARBON DIOXIDE LEVEL 27 MEQ/L (21-32); CHLORIDE LEVEL 111 MEQ/L (98-107); CREATININE FOR GFR 0.59 MG/DL (0.55-1.30); GLOMERULAR FILTRATION RATE > 60.0 (>51); GLUCOSE, FASTING 109 MG/DL (70-100); POTASSIUM SERUM 3.9 MEQ/L (3.5-5.1); SODIUM LEVEL 144 MEQ/L (136-145); TOTAL PROTEIN 7.1 GM/DL (6.4-8.2)
[2021-09-19] MEDS: BACLOFEN 10 MG TAB PO SCH ×2 (09:26→21:24)
[2021-09-19] MEDS: risperiDONE 1 MG TAB PO SCH ×2 (09:26→21:24)
[2021-09-19] MEDS: METOCLOPRAMIDE 10MG TAB PO SCH ×3 (09:26→21:24)
[2021-09-19] MEDS: DESITIN TOP SCH (09:27)
[2021-09-19] MEDS: TOPIRAMATE (TopAMAX) 100 MG TAB PO SCH ×2 (09:27→21:23)
[2021-09-19] MEDS: LACTOBACILLUS ACIDOPHILUS CAP (BACID) PO SCH ×2 (09:27→21:23)
[2021-09-19] MEDS: SILVER SULFADIAZINE 1% CR 50 GM JAR TOP SCH ×2 (09:27→23:40)
[2021-09-19] MEDS: CHOLESTYRAMINE TOP SCH (09:27)
[2021-09-19] MEDS: SENNA 8.6 MG TAB (SENOKOT) PO SCH ×2 (09:27→21:24)
[2021-09-19] MEDS: MAALOX TOP SCH (09:27)
[2021-09-19] MEDS: FOLIC ACID 1 MG TAB PO SCH (09:27)
[2021-09-19] MEDS: AMINO AC/ELECTROLYTE/DEX/CALC 1,000 ML IV SCH (11:55)
[2021-09-19 14:00] VITALS: BP 114/83
[2021-09-19 18:00] VITALS: BP 118/79
[2021-09-19] MEDS ORDERED: FAT EMULSION IV 250 ML IV ONE (18:00)
[2021-09-19] MEDS: LORazepam 1 MG TAB PO SCH (21:24)
[2021-09-19] MEDS: MONTELUKAST 10 MG TAB PO SCH (21:24)
[2021-09-19 22:00] VITALS: BP 115/79
[2021-09-20] MEDS: AMINO AC/ELECTROLYTE/DEX/CALC 1,000 ML IV SCH ×2 (02:06→14:00)
[2021-09-20] MEDS: LEVOTHYROXINE 88MCG TABLET (0.088 MG) PO SCH (05:32)
[2021-09-20] MEDS: HEPARIN SOD (PORCINE) 5000UNITS/ML 1ML VIAL/SYRINGE SC SCH ×3 (05:32→20:07)
[2021-09-20 06:41] LABS: ALBUMIN 2.3 GM/DL (3.2-5.2); ALT/SGPT 23 U/L (12-78); BILIRUBIN,TOTAL 0.1 MG/DL (0.2-1.0); BLOOD UREA NITROGEN 7 MG/DL (7-18); CALCIUM LEVEL 9.4 MG/DL (8.5-10.1); CARBON DIOXIDE LEVEL 26 MEQ/L (21-32); CHLORIDE LEVEL 112 MEQ/L (98-107); CREATININE FOR GFR 0.58 MG/DL (0.55-1.30); GLOMERULAR FILTRATION RATE > 60.0 (>51); GLUCOSE, FASTING 89 MG/DL (70-100); SODIUM LEVEL 144 MEQ/L (136-145); TOTAL PROTEIN 6.5 GM/DL (6.4-8.2)
[2021-09-20 07:00] VITALS: BP 112/78
[2021-09-20 07:03] LABS: HEMOGLOBIN 9.3 g/dl (12.0-15.5); MEAN CORPUSCULAR HEMOGLOBIN 29.3 pg (27.0-33.0); MEAN CORPUSCULAR VOLUME 97.8 fl (80.0-96.0); RED BLOOD COUNT 3.17 10^6/uL (4.00-5.40); WHITE BLOOD COUNT 6.4 10^3/uL (4.0-10.0)
[2021-09-20 07:06] LABS: PLATELET COUNT, AUTOMATED 422 10^3/uL (150-450)
[2021-09-20] MEDS: CHOLESTYRAMINE TOP SCH ×2 (09:00→15:32)
[2021-09-20] MEDS: DESITIN TOP SCH ×2 (09:00→15:32)
[2021-09-20] MEDS: MAALOX TOP SCH ×2 (09:00→15:32)
[2021-09-20] MEDS: risperiDONE 1 MG TAB PO SCH ×2 (09:41→20:06)
[2021-09-20] MEDS: LACTOBACILLUS ACIDOPHILUS CAP (BACID) PO SCH ×2 (09:41→20:03)
[2021-09-20] MEDS: BACLOFEN 10 MG TAB PO SCH ×2 (09:41→20:03)
[2021-09-20] MEDS: SENNA 8.6 MG TAB (SENOKOT) PO SCH ×2 (09:42→20:03)
[2021-09-20] MEDS: TOPIRAMATE (TopAMAX) 100 MG TAB PO SCH ×2 (09:42→20:02)
[2021-09-20] MEDS: SILVER SULFADIAZINE 1% CR 50 GM JAR TOP SCH ×2 (09:42→20:08)
[2021-09-20] MEDS: FOLIC ACID 1 MG TAB PO SCH (09:42)
[2021-09-20] MEDS: METOCLOPRAMIDE 10MG TAB PO SCH ×3 (09:42→20:02)
[2021-09-20 10:20] VITALS: BP 104/60
[2021-09-20 14:00] VITALS: BP 100/60
[2021-09-20] MEDS ORDERED: FAT EMULSION IV 250 ML IV ONE (18:00)
[2021-09-20 20:00] VITALS: BP 120/87
[2021-09-20] MEDS: MONTELUKAST 10 MG TAB PO SCH (20:02)
[2021-09-20] MEDS: LORazepam 1 MG TAB PO SCH (20:02)
[2021-09-20 22:00] VITALS: BP 120/87
[2021-09-21] VITALS (7 sets, daily range): BP systolic 88–110; BP diastolic 65–75
[2021-09-21] MEDS: AMINO AC/ELECTROLYTE/DEX/CALC 1,000 ML IV SCH (04:09)
[2021-09-21] MEDS: HEPARIN SOD (PORCINE) 5000UNITS/ML 1ML VIAL/SYRINGE SC SCH ×3 (05:31→22:29)
[2021-09-21] MEDS: ACETAMINOPHEN TAB 650MG DOSE (2X325MG) PO PRN (05:31)
[2021-09-21] MEDS: LEVOTHYROXINE 88MCG TABLET (0.088 MG) PO SCH (05:32)
[2021-09-21 06:05] LABS: HEMATOCRIT 30.6 % (36.0-47.0); HEMOGLOBIN 9.3 g/dl (12.0-15.5); MEAN CORPUSCULAR HEMOGLOBIN 29.2 pg (27.0-33.0); MEAN CORPUSCULAR HGB CONC 30.4 g/dl (32.0-36.5); MEAN CORPUSCULAR VOLUME 95.9 fl (80.0-96.0); PLATELET COUNT, AUTOMATED 375 10^3/uL (150-450); RED BLOOD COUNT 3.19 10^6/uL (4.00-5.40); WHITE BLOOD COUNT 5.2 10^3/uL (4.0-10.0)
[2021-09-21 06:41] LABS: ALBUMIN 2.3 GM/DL (3.2-5.2); ALT/SGPT 23 U/L (12-78); BILIRUBIN,TOTAL 0.2 MG/DL (0.2-1.0); BLOOD UREA NITROGEN 8 MG/DL (7-18); CALCIUM LEVEL 9.6 MG/DL (8.5-10.1); CARBON DIOXIDE LEVEL 28 MEQ/L (21-32); CHLORIDE LEVEL 112 MEQ/L (98-107); CREATININE FOR GFR 0.58 MG/DL (0.55-1.30); GLOMERULAR FILTRATION RATE > 60.0 (>51); GLUCOSE, FASTING 87 MG/DL (70-100); SODIUM LEVEL 147 MEQ/L (136-145); TOTAL PROTEIN 6.5 GM/DL (6.4-8.2)
[2021-09-21] MEDS: METOCLOPRAMIDE 10MG TAB PO SCH ×3 (09:00→19:40)
[2021-09-21] MEDS: SILVER SULFADIAZINE 1% CR 50 GM JAR TOP SCH ×2 (09:03→19:44)
[2021-09-21] MEDS ORDERED: GLYCOPYRROLATE INJ 0.2 MG/ML 2 ML VIAL As Ordered ONE (14:27)
[2021-09-21] MEDS ORDERED: LIDOCAINE 2% 100MG/5ML SDV (FOR ANES.) As Ordered ONE (14:27)
[2021-09-21] MEDS ORDERED: propofoL 200 MG/20 ML VIAL As Ordered ONE ×2 (14:27→14:56)
[2021-09-21] MEDS ORDERED: fentaNYL 100 MCG/2 ML INJECTION As Ordered ONE (14:37)
[2021-09-21] MEDS ORDERED: PHENYLephrine 500MCG 5ML (100MCG/ML) SYRINGE As Ordered ONE (14:50)
[2021-09-21] MEDS: LACTOBACILLUS ACIDOPHILUS CAP (BACID) PO SCH ×2 (16:20→19:40)
[2021-09-21] MEDS: CHOLESTYRAMINE TOP SCH (16:21)
[2021-09-21] MEDS: SENNA 8.6 MG TAB (SENOKOT) PO SCH ×2 (16:21→19:40)
[2021-09-21] MEDS: DESITIN TOP SCH (16:21)
[2021-09-21] MEDS: MAALOX TOP SCH (16:21)
[2021-09-21] MEDS: risperiDONE 1 MG TAB PO SCH ×2 (16:21→19:40)
[2021-09-21] MEDS: BACLOFEN 10 MG TAB PO SCH ×2 (16:21→19:40)
[2021-09-21] MEDS: TOPIRAMATE (TopAMAX) 100 MG TAB PO SCH ×2 (16:21→19:40)
[2021-09-21] MEDS: FOLIC ACID 1 MG TAB PO SCH (17:28)
[2021-09-21] MEDS ORDERED: FAT EMULSION IV 250 ML IV ONE (18:00)
[2021-09-21] MEDS: MONTELUKAST 10 MG TAB PO SCH (19:41)
[2021-09-21] MEDS: LORazepam 1 MG TAB PO SCH (19:41)
[2021-09-21] MEDS: MORPHINE 2 MG/ML 1ML VIAL IV PRN (22:31)
[2021-09-21] MEDS ORDERED: MORPHINE 30 MG TAB **MSIR PO ONE (22:55)
[2021-09-22] MEDS: HEPARIN SOD (PORCINE) 5000UNITS/ML 1ML VIAL/SYRINGE SC SCH (05:10)
[2021-09-22] MEDS: ACETAMINOPHEN TAB 650MG DOSE (2X325MG) PO PRN (05:11)
[2021-09-22 05:31] VITALS: BP 104/80
[2021-09-22] MEDS: LEVOTHYROXINE 88MCG TABLET (0.088 MG) PO SCH (05:53)
[2021-09-22 08:27] LABS: EOS # 0.1 10^3/uL (0.0-0.5); EOS % 1.3 % (0.0-3.0); HEMATOCRIT 31.3 % (36.0-47.0); HEMOGLOBIN 9.5 g/dl (12.0-15.5); LYMPH # 2.3 10^3/uL (1.5-5.0); LYMPH % 60.1 % (24.0-44.0); MEAN CORPUSCULAR HEMOGLOBIN 29.1 pg (27.0-33.0); MEAN CORPUSCULAR HGB CONC 30.4 g/dl (32.0-36.5); MEAN CORPUSCULAR VOLUME 95.7 fl (80.0-96.0); MONO # 0.4 10^3/uL (0.0-0.8); MONO % 10.5 % (2.0-8.0); NEUTROPHILS % 26.8 % (36.0-66.0); PLATELET COUNT, AUTOMATED 618 10^3/uL (150-450); RED BLOOD COUNT 3.27 10^6/uL (4.00-5.40); WHITE BLOOD COUNT 3.8 10^3/uL (4.0-10.0)
[2021-09-22] MEDS: DESITIN TOP SCH (09:00)
[2021-09-22] MEDS: CHOLESTYRAMINE TOP SCH (09:00)
[2021-09-22] MEDS: MAALOX TOP SCH (09:00)
[2021-09-22 09:02] LABS: ALBUMIN 2.6 GM/DL (3.2-5.2); ALT/SGPT 37 U/L (12-78); BILIRUBIN,TOTAL 0.3 MG/DL (0.2-1.0); BLOOD UREA NITROGEN 10 MG/DL (7-18); CALCIUM LEVEL 9.8 MG/DL (8.5-10.1); CARBON DIOXIDE LEVEL 32 MEQ/L (21-32); CHLORIDE LEVEL 109 MEQ/L (98-107); CREATININE FOR GFR 0.59 MG/DL (0.55-1.30); GLOMERULAR FILTRATION RATE > 60.0 (>51); GLUCOSE, FASTING 89 MG/DL (70-100); MAGNESIUM LEVEL 2.2 MG/DL (1.8-2.4); PHOSPHORUS LEVEL 3.9 MG/DL (2.5-4.9); SODIUM LEVEL 148 MEQ/L (136-145); TOTAL PROTEIN 7.2 GM/DL (6.4-8.2)
[2021-09-22] MEDS: LACTOBACILLUS ACIDOPHILUS CAP (BACID) PO SCH (09:33)
[2021-09-22] MEDS: METOCLOPRAMIDE 10MG TAB PO SCH (09:33)
[2021-09-22] MEDS: BACLOFEN 10 MG TAB PO SCH (09:33)
[2021-09-22] MEDS: TOPIRAMATE (TopAMAX) 100 MG TAB PO SCH (09:33)
[2021-09-22] MEDS: SENNA 8.6 MG TAB (SENOKOT) PO SCH (09:33)
[2021-09-22] MEDS: FOLIC ACID 1 MG TAB PO SCH (09:33)
[2021-09-22] MEDS: risperiDONE 1 MG TAB PO SCH (09:33)
[2021-09-22] MEDS: SILVER SULFADIAZINE 1% CR 50 GM JAR TOP SCH (09:34)
[2021-09-22 10:00] VITALS: BP 104/80
[2021-09-22] MEDS ORDERED: METHYLENE BLUE 0.5% (5MG/ML) 10 ML AMP (PROVAYBLUE) XX ONE (11:00)
[2021-09-22] MEDS ORDERED: SYNT88TA2 PO (11:43)
[2021-09-22] MEDS ORDERED: SILV50CR TOP (11:43)
== END 2021-09-22 14:18 | disposition home or self-care (01) | DRG 919 ==
LOC: M ED 17:12 → M ED INP 17:13 → M ED 20:38 → M MS5PR 22:30 → M MSPAV 23:39 → EEVIPCON 09-09 18:15 → OBSVTOIN 09-09 18:15 → M MSPAV 09-12 14:25
PROVIDERS: ADMIT Internal Medicine; ATTEND Internal Medicine
PROC: 0DH68UZ Insertion of Feeding Device into Stomach, Via Natural or Artificial Opening Endoscopic (ICD-10-PCS; 2021-09-08)
PROC: 0DP68UZ Removal of Feeding Device from Stomach, Via Natural or Artificial Opening Endoscopic (ICD-10-PCS; principal; 2021-09-08 19:00)
PROC: 0DHA8UZ Insertion of Feeding Device into Jejunum, Via Natural or Artificial Opening Endoscopic (ICD-10-PCS; 2021-09-21)
DX: T85.528A Displacement of other gastrointestinal prosthetic devices, implants and grafts, initial encounter (principal); E43 Unspecified severe protein-calorie malnutrition; K94.22 Gastrostomy infection; L03.111 Cellulitis of right axilla; E87.0 Hyperosmolality and hypernatremia; Z68.1 Body mass index [BMI] 19.9 or less, adult; F72 Severe intellectual disabilities; K21.9 Gastro-esophageal reflux disease without esophagitis; R13.10 Dysphagia, unspecified; E03.9 Hypothyroidism, unspecified; R00.0 Tachycardia, unspecified; K59.00 Constipation, unspecified; R26.89 Other abnormalities of gait and mobility; D56.3 Thalassemia minor; H91.92 Unspecified hearing loss, left ear; D25.9 Leiomyoma of uterus, unspecified; H26.9 Unspecified cataract; E87.6 Hypokalemia; E16.2 Hypoglycemia, unspecified; K31.84 Gastroparesis; D64.9 Anemia, unspecified; Z79.899 Other long term (current) drug therapy

== ENCOUNTER → 2021-09-28 | Outpatient (CLI) | payer MEDICARE, MEDICAID ==
[~2021-09-28] MED LIST changes: +RISP-8 PO; +SILV50CR TOP; +SYNT100T PO; +SYNT88TA2 PO
[2021-09-28 13:40] LABS: HEMATOCRIT 35.3 % (36.0-47.0); HEMOGLOBIN 10.7 g/dl (12.0-15.5); MEAN CORPUSCULAR HEMOGLOBIN 28.9 pg (27.0-33.0); MEAN CORPUSCULAR HGB CONC 30.3 g/dl (32.0-36.5); MEAN CORPUSCULAR VOLUME 95.4 fl (80.0-96.0); PLATELET COUNT, AUTOMATED 384 10^3/uL (150-450)
[2021-09-28 14:19] LABS: ALBUMIN 3.4 GM/DL (3.2-5.2); ALT/SGPT 38 U/L (12-78); BILIRUBIN,TOTAL 0.2 MG/DL (0.2-1.0); BLOOD UREA NITROGEN 17 MG/DL (7-18); CALCIUM LEVEL 10.7 MG/DL (8.5-10.1); CARBON DIOXIDE LEVEL 36 MEQ/L (21-32); CHLORIDE LEVEL 95 MEQ/L (98-107); CREATININE FOR GFR 0.68 MG/DL (0.55-1.30); FREE T3 2.6 PG/ML (2.2-4.0); FREE T4 1.12 NG/DL (0.76-1.46); GLOMERULAR FILTRATION RATE > 60.0 (>51); GLUCOSE, FASTING 94 MG/DL (70-100); POTASSIUM SERUM 3.5 MEQ/L (3.5-5.1); SODIUM LEVEL 138 MEQ/L (136-145); TOTAL PROTEIN 8.3 GM/DL (6.4-8.2)
== END ==
LOC: M RAD 12:27
PROVIDERS: ATTEND Registered Nurse
DX: K59.09 Other constipation (principal); E03.9 Hypothyroidism, unspecified

== ENCOUNTER → 2021-10-03 | Outpatient (CLI) | payer MEDICARE, MEDICAID | LOC: M RAD 15:36 | PROVIDERS: ATTEND Registered Nurse | DX: K59.00 Constipation, unspecified (principal) ==

== ENCOUNTER → 2021-11-07 | Outpatient (CLI) | payer MEDICARE, MEDICAID | LOC: M PLAIMG 08:48 | PROVIDERS: ATTEND Registered Nurse | DX: K94.22 Gastrostomy infection (principal) ==

== ENCOUNTER 2022-02-10 15:53 | Emergency (ER) | payer MEDICARE, MEDICAID ==
[~2022-02-10] VITALS: Ht 172.7 cm; Wt 64.5 kg
[2022-02-10] MEDS ORDERED: OMEP40CA5 PO (16:42)
[2022-02-10] MEDS ORDERED: METO5TAB2 PO (16:42)
[2022-02-10] MEDS ORDERED: MIRA3350 PO (16:42)
[2022-02-10] MEDS ORDERED: LEVO88TA3 PO (16:59)
[2022-02-10] MEDS ORDERED: HOME MED LIST COMPLETE! XX SCH (17:05)
[2022-02-10] MEDS ORDERED: BACT800T5 PO (17:34)
[2022-02-10] MEDS ORDERED: BACTRIM 160MG/800MG DS TAB PO ONE (17:40)
[2022-02-10 17:41] VITALS: BP 109/73
== END 2022-02-10 17:54 | disposition home or self-care (01) ==
LOC: M ED 15:53
DX: L03.311 Cellulitis of abdominal wall (principal); Z86.14 Personal history of Methicillin resistant Staphylococcus aureus infection; F79 Unspecified intellectual disabilities; D56.0 Alpha thalassemia; F32.9 Major depressive disorder, single episode, unspecified; E03.9 Hypothyroidism, unspecified; R13.10 Dysphagia, unspecified; Z79.899 Other long term (current) drug therapy

== ENCOUNTER 2022-02-14 09:58 | Inpatient (IN) | payer MEDICARE, MEDICAID ==
[~2022-02-14] VITALS: Ht 167.6 cm; Wt 58.2 kg
[~2022-02-14 09:58] MED LIST changes: +BACT800T5 PO; +LEVO88TA3 PO; +METO5TAB2 PO; +OMEP40CA5 PO
[2022-02-14] MEDS ORDERED: IBUP200T46 PO (11:15)
[2022-02-14] MEDS ORDERED: [UNRECOGNIZED DRUG - OTHER] TOP (11:17)
[2022-02-14] MEDS ORDERED: BISA10SU4 PR (11:30)
[2022-02-14] MEDS ORDERED: MILKSUS3 PO (11:30)
[2022-02-14] MEDS ORDERED: BACT800T5 PO (11:35)
[2022-02-14] MEDS ORDERED: HOME MED LIST COMPLETE! XX SCH (11:40)
[2022-02-14] MEDS ORDERED: ACET325T43 PO (11:40)
[2022-02-14 14:54] LABS: BASO % 0.2 % (0.0-1.0); EOS % 0.7 % (0.0-3.0); HEMATOCRIT 31.1 % (36.0-47.0); HEMOGLOBIN 9.8 g/dl (12.0-15.5); LYMPH # 2.2 10^3/uL (1.5-5.0); LYMPH % 47.2 % (24.0-44.0); MEAN CORPUSCULAR HEMOGLOBIN 29.6 pg (27.0-33.0); MEAN CORPUSCULAR HGB CONC 31.5 g/dl (32.0-36.5); MONO # 0.4 10^3/uL (0.0-0.8); NEUTROPHILS % 42.7 % (36.0-66.0); PLATELET COUNT, AUTOMATED 195 10^3/uL (150-450); RED BLOOD COUNT 3.31 10^6/uL (4.00-5.40); WHITE BLOOD COUNT 4.6 10^3/uL (4.0-10.0)
[2022-02-14 15:32] LABS: CK-MB VALUE MASS 4.5 NG/ML (<3.6); MB/CK RELATIVE INDEX 5.84 (< OR =4)
[2022-02-14 15:33] LABS: ALBUMIN 3.6 GM/DL (3.2-5.2); ALT/SGPT 83 U/L (12-78); BILIRUBIN,DIRECT < 0.1 MG/DL (0.0-0.2); BILIRUBIN,TOTAL 0.2 MG/DL (0.2-1.0); BLOOD UREA NITROGEN 26 MG/DL (7-18); CALCIUM LEVEL 9.5 MG/DL (8.5-10.1); CARBON DIOXIDE LEVEL 28 MEQ/L (21-32); CHLORIDE LEVEL 107 MEQ/L (98-107); CREATININE FOR GFR 0.88 MG/DL (0.55-1.30); GLOMERULAR FILTRATION RATE > 60.0 (>51); GLUCOSE, FASTING 81 MG/DL (70-100); LIPASE 162 U/L (73-393); POTASSIUM SERUM 4.8 MEQ/L (3.5-5.1); SODIUM LEVEL 137 MEQ/L (136-145); TOTAL PROTEIN 7.5 GM/DL (6.4-8.2)
[2022-02-14] MEDS ORDERED: ISOVUE-370 76% 100ML VIAL As Ordered ONE (15:33)
[2022-02-14 15:37] LABS: RSV AMPLIFICATION NEGATIVE (NEGATIVE)
[2022-02-14] MEDS ORDERED: ACETAMINOPHEN TAB 650MG DOSE (2X325MG) PO PRN (18:00)
[2022-02-14 20:29] VITALS: BP 121/82
[2022-02-14 20:30] VITALS: BP 121/82
[2022-02-14] MEDS: NS 1,000 ML IV SCH (20:54)
[2022-02-14] MEDS ORDERED: BACTRIM 160MG/800MG DS TAB PO SCH (21:00)
[2022-02-14] MEDS ORDERED: BACLOFEN 10 MG TAB PO SCH (21:00)
[2022-02-14] MEDS ORDERED: risperiDONE 1 MG TAB PO SCH (21:00)
[2022-02-14] MEDS ORDERED: DULoxetine 30MG CAPSULE (CYMBALTA) PO SCH (21:00)
[2022-02-14] MEDS ORDERED: MONTELUKAST 10 MG TAB PO SCH (21:00)
[2022-02-14] MEDS ORDERED: DULoxetine 30MG CAPSULE (CYMBALTA) XX SCH (21:00)
[2022-02-14] MEDS ORDERED: LORazepam 1 MG TAB PO SCH (21:00)
[2022-02-14] MEDS ORDERED: METOCLOPRAMIDE 5 MG TAB PO SCH (21:00)
[2022-02-14] MEDS ORDERED: TOPIRAMATE (TopAMAX) 100 MG TAB PO SCH (21:00)
[2022-02-14 21:33] LABS: HEPATITIS B CORE ANTIBODY IGM NEGATIVE (NEGATIVE); HEPATITIS B SURFACE ANTIGEN NEGATIVE (NEGATIVE); HEPATITIS C VIRUS ABY INDEX 0.1 INDEX (<0.8)
[2022-02-14] MEDS: BACTRIM 160MG/800MG DS TAB PEG SCH (21:47)
[2022-02-14] MEDS: LORazepam 1 MG TAB PEG SCH (21:47)
[2022-02-14] MEDS ORDERED: ACETAMINOPHEN TAB 650MG DOSE (2X325MG) PEG PRN (22:00)
[2022-02-14] MEDS: BACLOFEN 10 MG TAB PEG SCH (22:18)
[2022-02-14] MEDS: MONTELUKAST 10 MG TAB PEG SCH (22:18)
[2022-02-14] MEDS: risperiDONE 1 MG TAB PEG SCH (22:19)
[2022-02-14] MEDS: METOCLOPRAMIDE 5 MG TAB PEG SCH (22:19)
[2022-02-14] MEDS: TOPIRAMATE (TopAMAX) 100 MG TAB PEG SCH (22:20)
[2022-02-15] MEDS: FLEET OIL RETENTION ENEMA PR SCH ×3 (02:32→20:45)
[2022-02-15] MEDS: GOLYTELY SOLN 4000 ML BTL PEG SCH ×3 (02:32→22:39)
[2022-02-15] MEDS: LEVOTHYROXINE 88MCG TABLET (0.088 MG) PEG SCH (05:29)
[2022-02-15] MEDS: HEPARIN SOD (PORCINE) 5000UNITS/ML 1ML VIAL/SYRINGE SC SCH ×3 (05:30→22:39)
[2022-02-15 06:00] VITALS: BP 94/62
[2022-02-15] MEDS ORDERED: LEVOTHYROXINE 88MCG TABLET (0.088 MG) PO SCH (06:00)
[2022-02-15 06:14] LABS: BASO % 0.2 % (0.0-1.0); EOS # 0.1 10^3/uL (0.0-0.5); EOS % 1.2 % (0.0-3.0); HEMATOCRIT 29.5 % (36.0-47.0); HEMOGLOBIN 9.7 g/dl (12.0-15.5); LYMPH # 2.1 10^3/uL (1.5-5.0); LYMPH % 52.5 % (24.0-44.0); MEAN CORPUSCULAR HEMOGLOBIN 30.3 pg (27.0-33.0); MEAN CORPUSCULAR HGB CONC 32.9 g/dl (32.0-36.5); MEAN CORPUSCULAR VOLUME 92.2 fl (80.0-96.0); MONO # 0.4 10^3/uL (0.0-0.8); MONO % 10.8 % (2.0-8.0); NEUTROPHILS # 1.4 10^3/uL (1.5-8.5); NEUTROPHILS % 35.3 % (36.0-66.0); PLATELET COUNT, AUTOMATED 204 10^3/uL (150-450); WHITE BLOOD COUNT 4.1 10^3/uL (4.0-10.0)
[2022-02-15 06:57] LABS: ALBUMIN 3.1 GM/DL (3.2-5.2); ALT/SGPT 70 U/L (12-78); BILIRUBIN,TOTAL 0.1 MG/DL (0.2-1.0); BLOOD UREA NITROGEN 22 MG/DL (7-18); CALCIUM LEVEL 9.2 MG/DL (8.5-10.1); CARBON DIOXIDE LEVEL 27 MEQ/L (21-32); CHLORIDE LEVEL 108 MEQ/L (98-107); CREATININE FOR GFR 0.92 MG/DL (0.55-1.30); GLOMERULAR FILTRATION RATE > 60.0 (>51); GLUCOSE, FASTING 70 MG/DL (70-100); MAGNESIUM LEVEL 2.1 MG/DL (1.8-2.4); POTASSIUM SERUM 5.2 MEQ/L (3.5-5.1); SODIUM LEVEL 140 MEQ/L (136-145); TOTAL PROTEIN 6.9 GM/DL (6.4-8.2)
[2022-02-15] MEDS ORDERED: SOD POLYSTYRENE SULFONATE SUSP 30GM 120ML ENEMA PR ONE (09:00)
[2022-02-15] MEDS: PANTOPRAZOLE 40MG VIAL IV SCH (10:06)
[2022-02-15] MEDS: NS 1,000 ML IV SCH (10:06)
[2022-02-15] MEDS: BACLOFEN 10 MG TAB PEG SCH ×2 (10:07→20:45)
[2022-02-15] MEDS: BACTRIM 160MG/800MG DS TAB PEG SCH ×2 (10:07→20:44)
[2022-02-15] MEDS: TOPIRAMATE (TopAMAX) 100 MG TAB PEG SCH ×2 (10:07→20:45)
[2022-02-15] MEDS: risperiDONE 1 MG TAB PEG SCH ×2 (10:07→20:45)
[2022-02-15] MEDS: METOCLOPRAMIDE 5 MG TAB PEG SCH ×3 (10:24→20:45)
[2022-02-15] MEDS: BISACODYL 10 MG SUPP PR SCH ×3 (12:52→22:39)
[2022-02-15] MEDS: LACTULOSE 20 GM/30 ML SYRUP UD PO SCH ×2 (13:21→17:36)
[2022-02-15 14:00] VITALS: BP 112/70
[2022-02-15 20:08] VITALS: BP 116/83
[2022-02-15] MEDS: MONTELUKAST 10 MG TAB PEG SCH (20:44)
[2022-02-15] MEDS: LORazepam 1 MG TAB PEG SCH (20:45)
[2022-02-16] MEDS: LACTULOSE 20 GM/30 ML SYRUP UD PO SCH ×2 (00:26→06:39)
[2022-02-16] MEDS: NS 1,000 ML IV SCH (00:26)
[2022-02-16 06:00] VITALS: BP 110/74
[2022-02-16 06:16] LABS: BASO % 0.2 % (0.0-1.0); EOS # 0.1 10^3/uL (0.0-0.5); EOS % 1.1 % (0.0-3.0); HEMATOCRIT 29.4 % (36.0-47.0); HEMOGLOBIN 9.3 g/dl (12.0-15.5); LYMPH # 2.7 10^3/uL (1.5-5.0); LYMPH % 60.6 % (24.0-44.0); MEAN CORPUSCULAR HGB CONC 31.6 g/dl (32.0-36.5); MEAN CORPUSCULAR VOLUME 94.8 fl (80.0-96.0); MONO # 0.5 10^3/uL (0.0-0.8); MONO % 11.2 % (2.0-8.0); NEUTROPHILS # 1.2 10^3/uL (1.5-8.5); NEUTROPHILS % 26.7 % (36.0-66.0); PLATELET COUNT, AUTOMATED 189 10^3/uL (150-450); WHITE BLOOD COUNT 4.5 10^3/uL (4.0-10.0)
[2022-02-16] MEDS: LEVOTHYROXINE 88MCG TABLET (0.088 MG) PEG SCH (06:39)
[2022-02-16] MEDS: HEPARIN SOD (PORCINE) 5000UNITS/ML 1ML VIAL/SYRINGE SC SCH (06:40)
[2022-02-16 06:56] LABS: ALBUMIN 3.1 GM/DL (3.2-5.2); ALT/SGPT 58 U/L (12-78); BILIRUBIN,TOTAL 0.2 MG/DL (0.2-1.0); BLOOD UREA NITROGEN 14 MG/DL (7-18); CALCIUM LEVEL 9.2 MG/DL (8.5-10.1); CARBON DIOXIDE LEVEL 25 MEQ/L (21-32); CHLORIDE LEVEL 110 MEQ/L (98-107); CREATININE FOR GFR 0.93 MG/DL (0.55-1.30); GLOMERULAR FILTRATION RATE > 60.0 (>51); GLUCOSE, FASTING 68 MG/DL (70-100); MAGNESIUM LEVEL 1.8 MG/DL (1.8-2.4); POTASSIUM SERUM 5.1 MEQ/L (3.5-5.1); SODIUM LEVEL 139 MEQ/L (136-145); TOTAL PROTEIN 6.6 GM/DL (6.4-8.2)
[2022-02-16] MEDS ORDERED: BISACODYL 10 MG SUPP PR PRN (08:30)
[2022-02-16] MEDS: PANTOPRAZOLE 40MG VIAL IV SCH (09:00)
[2022-02-16] MEDS ORDERED: MIRALAX *UNIT DOSE* 17GM PACKET PO SCH (09:00)
[2022-02-16] MEDS ORDERED: SENNA 8.6 MG TAB (SENOKOT) PO SCH (09:00)
[2022-02-16] MEDS: TOPIRAMATE (TopAMAX) 100 MG TAB PEG SCH (09:58)
[2022-02-16] MEDS: METOCLOPRAMIDE 5 MG TAB PEG SCH (09:58)
[2022-02-16] MEDS: BACLOFEN 10 MG TAB PEG SCH (09:58)
[2022-02-16] MEDS: risperiDONE 1 MG TAB PEG SCH (09:58)
[2022-02-16] MEDS: BACTRIM 160MG/800MG DS TAB PEG SCH (09:58)
[2022-02-16] MEDS ORDERED: CONS10SO3 PO (11:11)
[2022-02-16] MEDS ORDERED: MIRA3350 PO (11:12)
[2022-02-16] MEDS ORDERED: LACTULOSE 20 GM/30 ML SYRUP UD PO SCH (21:00)
== END 2022-02-16 14:08 | DRG 392 ==
LOC: M ED 09:58 → M ED INP 17:58 → ENRESERV 19:47 → M MSPAV 20:14
PROVIDERS: ADMIT Internal Medicine; ATTEND Internal Medicine
DX: K59.00 Constipation, unspecified (principal); L03.311 Cellulitis of abdominal wall; F79 Unspecified intellectual disabilities; R13.10 Dysphagia, unspecified; E03.9 Hypothyroidism, unspecified; F32.A Depression, unspecified; F41.9 Anxiety disorder, unspecified; K21.9 Gastro-esophageal reflux disease without esophagitis; Z93.1 Gastrostomy status; R74.01 Elevation of levels of liver transaminase levels; Z79.890 Hormone replacement therapy; Z79.899 Other long term (current) drug therapy; Z79.2 Long term (current) use of antibiotics; Z20.822 Contact with and (suspected) exposure to COVID-19

== ENCOUNTER → 2022-03-14 | Outpatient (POV) | payer MEDICARE, MEDICAID ==
[~2022-03-14] VITALS: Ht 167.6 cm; Wt 58.2 kg
[~2022-03-14] MED LIST changes: +ACET325T43 PO; +BISA10SU4 PR; +IBUP200T46 PO; +MILKSUS3 PO; +[UNRECOGNIZED DRUG - OTHER] TOP
[2022-03-14 14:00] VITALS: BP 132/78
== END ==
LOC: M IRPOV 13:47
PROVIDERS: ATTEND Radiology Diagnostic Radiology
DX: K94.20 Gastrostomy complication, unspecified (principal)

== ENCOUNTER → 2022-04-10 | Outpatient (CLI) | payer MEDICARE, MEDICAID ==
[2022-04-10 12:34] LABS: BASO % 0.4 % (0.0-1.0); EOS % 0.9 % (0.0-3.0); HEMATOCRIT 35.5 % (36.0-47.0); HEMOGLOBIN 10.7 g/dl (12.0-15.5); LYMPH # 2.8 10^3/uL (1.5-5.0); LYMPH % 60.7 % (24.0-44.0); MEAN CORPUSCULAR HEMOGLOBIN 29.6 pg (27.0-33.0); MEAN CORPUSCULAR HGB CONC 30.1 g/dl (32.0-36.5); MEAN CORPUSCULAR VOLUME 98.3 fl (80.0-96.0); MONO # 0.5 10^3/uL (0.0-0.8); MONO % 10.5 % (2.0-8.0); NEUTROPHILS # 1.3 10^3/uL (1.5-8.5); NEUTROPHILS % 27.5 % (36.0-66.0); PLATELET COUNT, AUTOMATED 187 10^3/uL (150-450); RED BLOOD COUNT 3.61 10^6/uL (4.00-5.40); WHITE BLOOD COUNT 4.6 10^3/uL (4.0-10.0)
[2022-04-10 12:59] LABS: ALBUMIN 3.3 G/DL (3.2-5.2); ALKALINE PHOSPHATASE 147 U/L (46-116); ALT/SGPT 91 U/L (7.0-40); AST/SGOT 48 U/L (<34); BILIRUBIN,TOTAL < 0.2 MG/DL (0.3-1.2); BLOOD UREA NITROGEN 25 MG/DL (9-23); CALCIUM LEVEL 9.7 MG/DL (8.5-10.1); CARBON DIOXIDE LEVEL 30 MMOL/L (20-31); CHLORIDE LEVEL 105 MMOL/L (98-107); CHOLESTEROL LEVEL 235 MG/DL (<200); CREATININE FOR GFR 0.71 MG/DL (0.55-1.30); GLOMERULAR FILTRATION RATE > 60.0 (>51); GLUCOSE, FASTING 67 MG/DL (60-100); HDL CHOLESTEROL 78.2 MG/DL (>40); LDL CHOLESTEROL 142.6 MG/DL (<100); NON-HDL-C 157 MG/DL; SODIUM LEVEL 141 MMOL/L (136-145); TOTAL PROTEIN 7.1 G/DL (5.7-8.2); TRIGLYCERIDES LEVEL 71 MG/DL (<150)
[2022-04-10 13:00] LABS: PROLACTIN 75.35 NG/ML
[2022-04-10 14:09] LABS: HEMOGLOBIN A1c 5.2 % (4.0-6.0)
== END ==
LOC: M WUC 08:56
PROVIDERS: ATTEND Physician Assistant
DX: Z79.899 Other long term (current) drug therapy (principal)

== ENCOUNTER → 2022-05-03 | Outpatient (CLI) | payer MEDICARE, MEDICAID | LOC: M RAD 14:53 | PROVIDERS: ATTEND Registered Nurse | DX: E03.9 Hypothyroidism, unspecified (principal); E04.1 Nontoxic single thyroid nodule ==

== ENCOUNTER → 2022-05-18 | Outpatient (CLI) | payer MEDICARE, MEDICAID ==
[2022-05-18 10:19] LABS: ALBUMIN 3.5 G/DL (3.2-5.2); ALKALINE PHOSPHATASE 163 U/L (46-116); ALT/SGPT 86 U/L (7.0-40); AST/SGOT 43 U/L (<34); BILIRUBIN,DIRECT < 0.1 MG/DL (<0.4); BILIRUBIN,TOTAL 0.2 MG/DL (0.3-1.2); CHOLESTEROL LEVEL 247 MG/DL (<200); CHOLESTEROL RISK RATIO 3.01 (<5); CPK CREATINE PHOSPHOKINASE 59 U/L (34-145); LDL CHOLESTEROL 155.8 MG/DL (<100); NON-HDL-C 165 MG/DL; TRIGLYCERIDES LEVEL 46 MG/DL (<150)
[2022-05-18 10:35] LABS: HEPATITIS B SURFACE ANTIGEN NEGATIVE (NEGATIVE)
[2022-05-18 10:56] LABS: HEPATITIS B CORE ANTIBODY IGM NEGATIVE (NEGATIVE); HEPATITIS C VIRUS ABY INDEX 0.1 INDEX (<0.8)
== END ==
LOC: M WUC 08:18
PROVIDERS: ATTEND Registered Nurse
DX: E78.5 Hyperlipidemia, unspecified (principal); Z11.59 Encounter for screening for other viral diseases

== ENCOUNTER 2022-06-05 11:53 | Emergency (ER) | payer MEDICARE, MEDICAID ==
[2022-06-05 17:52] VITALS: BP 118/70
[2022-06-05 17:52] LABS: BASO % 0.1 % (0.0-1.0); EOS # 0.1 10^3/uL (0.0-0.5); EOS % 0.7 % (0.0-3.0); HEMATOCRIT 33.1 % (36.0-47.0); HEMOGLOBIN 10.5 g/dl (12.0-15.5); LYMPH # 2.6 10^3/uL (1.5-5.0); LYMPH % 31.7 % (24.0-44.0); MEAN CORPUSCULAR HEMOGLOBIN 31.3 pg (27.0-33.0); MEAN CORPUSCULAR HGB CONC 31.7 g/dl (32.0-36.5); MEAN CORPUSCULAR VOLUME 98.8 fl (80.0-96.0); MONO # 0.8 10^3/uL (0.0-0.8); MONO % 9.3 % (2.0-8.0); NEUTROPHILS # 4.7 10^3/uL (1.5-8.5); PLATELET COUNT, AUTOMATED 215 10^3/uL (150-450); RED BLOOD COUNT 3.35 10^6/uL (4.00-5.40); WHITE BLOOD COUNT 8.1 10^3/uL (4.0-10.0)
[2022-06-05 18:27] LABS: ALBUMIN 3.8 G/DL (3.2-5.2); ALKALINE PHOSPHATASE 172 U/L (46-116); ALT/SGPT 83 U/L (7.0-40); AST/SGOT 78 U/L (<34); BILIRUBIN,DIRECT < 0.1 MG/DL (<0.4); BILIRUBIN,TOTAL 0.3 MG/DL (0.3-1.2); BLOOD UREA NITROGEN 15 MG/DL (9-23); CALCIUM LEVEL 9.9 MG/DL (8.5-10.1); CARBON DIOXIDE LEVEL 30 MMOL/L (20-31); CHLORIDE LEVEL 102 MMOL/L (98-107); GLOMERULAR FILTRATION RATE > 60.0 (>51); GLUCOSE, FASTING 86 MG/DL (60-100); LIPASE 55 U/L (12-53); POTASSIUM SERUM 5.6 MMOL/L (3.5-5.1); SODIUM LEVEL 138 MMOL/L (136-145)
[2022-06-05] MEDS ORDERED: ISOVUE-370 76% 100ML VIAL As Ordered ONE (19:17)
[2022-06-05] MEDS ORDERED: LACT20EL JT (20:55)
[2022-06-05] MEDS ORDERED: FLEEENE12 PR (20:55)
== END 2022-06-05 21:18 | disposition home or self-care (01) ==
LOC: M ED 11:53
DX: K59.00 Constipation, unspecified (principal); K21.9 Gastro-esophageal reflux disease without esophagitis; Z79.1 Long term (current) use of non-steroidal anti-inflammatories (NSAID); Z79.899 Other long term (current) drug therapy
CPT/HCPCS: 74021; 74177; 80047; 80048; 80076; 83690; 85025; 99284; Q9967

== ENCOUNTER → 2022-06-19 | Outpatient (CLI) | payer MEDICARE, MEDICAID ==
[~2022-06-19] MED LIST changes: +LACT20EL JT
[2022-06-19 09:53] LABS: CHOLESTEROL RISK RATIO 2.99 (<5); HDL CHOLESTEROL 84.4 MG/DL (>40)
== END ==
LOC: M WUC 08:09
PROVIDERS: ATTEND Registered Nurse
DX: Z79.899 Other long term (current) drug therapy (principal); K77 Liver disorders in diseases classified elsewhere

== ENCOUNTER → 2022-07-06 | Outpatient (CLI) | payer MEDICARE, MEDICAID ==
[~2022-07-06] MED LIST changes: +MONT-5 PO; -SING10TA32 PO
== END ==
LOC: M WHC 09:22
PROVIDERS: ATTEND Registered Nurse
DX: Z12.31 Encounter for screening mammogram for malignant neoplasm of breast (principal)

== ENCOUNTER → 2022-07-19 | Outpatient (CLI) | payer MEDICARE, MEDICAID ==
[2022-07-19 10:50] LABS: CHOLESTEROL RISK RATIO 2.53 (<5); HDL CHOLESTEROL 84.3 MG/DL (>40); LDL CHOLESTEROL 117.9 MG/DL (<100); NON-HDL-C 129.7 MG/DL
== END ==
LOC: M WUC 08:10
PROVIDERS: ATTEND Registered Nurse
DX: E78.2 Mixed hyperlipidemia (principal)

== ENCOUNTER → 2022-08-23 | Outpatient (CLI) | payer MEDICARE, MEDICAID ==
[2022-08-23 10:47] LABS: BASO % 0.2 % (0.0-1.0); EOS # 0.1 10^3/uL (0.0-0.5); EOS % 0.4 % (0.0-3.0); HEMATOCRIT 31.4 % (36.0-47.0); HEMOGLOBIN 9.7 g/dl (12.0-15.5); LYMPH # 2.4 10^3/uL (1.5-5.0); MEAN CORPUSCULAR HGB CONC 30.9 g/dl (32.0-36.5); MEAN CORPUSCULAR VOLUME 103.6 fl (80.0-96.0); MONO # 1.4 10^3/uL (0.0-0.8); NEUTROPHILS % 79.9 % (36.0-66.0); PLATELET COUNT, AUTOMATED 193 10^3/uL (150-450); RED BLOOD COUNT 3.03 10^6/uL (4.00-5.40); WHITE BLOOD COUNT 19.9 10^3/uL (4.0-10.0)
[2022-08-23 11:19] LABS: ALBUMIN 3.1 G/DL (3.2-5.2); ALKALINE PHOSPHATASE 499 U/L (46-116); ALT/SGPT 208 U/L (7.0-40); AST/SGOT 116 U/L (<34); BILIRUBIN,TOTAL 0.2 MG/DL (0.3-1.2); BLOOD UREA NITROGEN 13 MG/DL (9-23); CALCIUM LEVEL 9.9 MG/DL (8.5-10.1); CARBON DIOXIDE LEVEL 34 MMOL/L (20-31); CHLORIDE LEVEL 106 MMOL/L (98-107); GLOMERULAR FILTRATION RATE > 60.0 (>51); GLUCOSE, FASTING 54 MG/DL (60-100); IRON (FE) 49 UG/DL (50-170); PERCENT SATURATION 21.5 % (13.2-45.0); POTASSIUM SERUM 4.2 MMOL/L (3.5-5.1); SODIUM LEVEL 145 MMOL/L (136-145); TOTAL IRON BINDING CAPACITY 228 UG/DL (250-425); TOTAL PROTEIN 6.9 G/DL (5.7-8.2)
[2022-08-23 11:20] LABS: FERRITIN 1148.5 NG/ML (7.3-270.7)
[2022-08-23 11:21] LABS: VITAMIN B12 LEVEL 550 PG/ML (211-911)
== END ==
LOC: M WUC 08:22
PROVIDERS: ATTEND Nurse Practitioner
DX: D64.9 Anemia, unspecified (principal)

== ENCOUNTER → 2022-09-05 | Outpatient (CLI) | payer MEDICARE, MEDICAID ==
[~2022-09-05] MED LIST changes: +LORA1TAB23 PO; -LORA1TAB4 PO; +PREV30TA3 PO; +ROSU10TA6 PO
== END ==
LOC: M RAD 08:11
PROVIDERS: ATTEND Registered Nurse
DX: R79.9 Abnormal finding of blood chemistry, unspecified (principal); K77 Liver disorders in diseases classified elsewhere

== ENCOUNTER → 2022-09-30 | Outpatient (CLI) | payer MEDICARE, MEDICAID ==
[~2022-09-30] MED LIST changes: +BACL10TA2 JT; +DESI13CR2 TOP; +FOLI1TAB11 JT; -FOLI1TAB11 PO; +LACT20EL PO; +LEVO100S5 JT; +LINZ290C JT; -LINZ290C PO; +LORA1TAB23 JT; +MILKSUS3 JT; -MILKSUS3 PO; +MONT-5 JT; -MONT-5 PO; +NEOM28.3 TP; +POLY17PO18 JT; +PREV30TA3 JT; -PREV30TA3 PO; +RISP-8 JT; -RISP-8 PO; +SENN8.6T28 JT; +TOPA100T12 JT; -TOPA100T12 PO
[2022-09-30 10:41] LABS: HEMATOCRIT 31.4 % (36.0-47.0); HEMOGLOBIN 9.5 g/dl (12.0-15.5); MEAN CORPUSCULAR HEMOGLOBIN 31.1 pg (27.0-33.0); MEAN CORPUSCULAR HGB CONC 30.3 g/dl (32.0-36.5); PLATELET COUNT, AUTOMATED 149 10^3/uL (150-450); RED BLOOD COUNT 3.05 10^6/uL (4.00-5.40); WHITE BLOOD COUNT 4.3 10^3/uL (4.0-10.0)
[2022-09-30 11:01] LABS: ALBUMIN 3.3 G/DL (3.2-5.2); ALKALINE PHOSPHATASE 442 U/L (46-116); ALT/SGPT 174 U/L (7.0-40); AST/SGOT 82 U/L (<34); BILIRUBIN,TOTAL < 0.2 MG/DL (0.3-1.2); BLOOD UREA NITROGEN 12 MG/DL (9-23); CALCIUM LEVEL 9.7 MG/DL (8.5-10.1); CARBON DIOXIDE LEVEL 34 MMOL/L (20-31); CHLORIDE LEVEL 110 MMOL/L (98-107); CREATININE FOR GFR 0.74 MG/DL (0.55-1.30); GLOMERULAR FILTRATION RATE > 60.0 (>51); GLUCOSE, FASTING 86 MG/DL (60-100); POTASSIUM SERUM 5.3 MMOL/L (3.5-5.1); SODIUM LEVEL 144 MMOL/L (136-145)
[2022-09-30 11:15] LABS: HEMOGLOBIN A1c 5.3 % (4.0-6.0)
== END ==
LOC: M LAB 10:00
PROVIDERS: ATTEND Registered Nurse
DX: K31.84 Gastroparesis (principal)

== ENCOUNTER → 2022-10-30 | Outpatient (CLI) | payer MEDICARE, MEDICAID ==
[~2022-10-30] MED LIST changes: +CEFD300C41 PO; +SIME40DR31 JT
[2022-10-30 09:42] LABS: BASO % 0.4 % (0.0-1.0); EOS # 0.1 10^3/uL (0.0-0.5); EOS % 1.1 % (0.0-3.0); HEMATOCRIT 31.3 % (36.0-47.0); HEMOGLOBIN 9.3 g/dl (12.0-15.5); LYMPH # 2.5 10^3/uL (1.5-5.0); LYMPH % 45.3 % (24.0-44.0); MEAN CORPUSCULAR HEMOGLOBIN 31.2 pg (27.0-33.0); MEAN CORPUSCULAR HGB CONC 29.7 g/dl (32.0-36.5); MONO # 0.7 10^3/uL (0.0-0.8); MONO % 13.5 % (2.0-8.0); NEUTROPHILS # 2.1 10^3/uL (1.5-8.5); NEUTROPHILS % 39.5 % (36.0-66.0); PLATELET COUNT, AUTOMATED 164 10^3/uL (150-450); RED BLOOD COUNT 2.98 10^6/uL (4.00-5.40); WHITE BLOOD COUNT 5.4 10^3/uL (4.0-10.0)
[2022-10-30 10:09] LABS: FREE T4 0.94 NG/DL (0.89-1.76)
[2022-10-30 10:10] LABS: THYROID STIMULATING HORMONE 2.604 uIU/ML (0.55-4.78)
[2022-10-30 10:37] LABS: ALBUMIN 3.4 G/DL (3.2-5.2); ALKALINE PHOSPHATASE 1073 U/L (46-116); ALT/SGPT 1513 U/L (7.0-40); AST/SGOT 1766 U/L (<34); BILIRUBIN,TOTAL < 0.2 MG/DL (0.3-1.2); BLOOD UREA NITROGEN 28 MG/DL (9-23); CALCIUM LEVEL 9.5 MG/DL (8.5-10.1); CARBON DIOXIDE LEVEL 29 MMOL/L (20-31); CHLORIDE LEVEL 108 MMOL/L (98-107); CREATININE FOR GFR 0.65 MG/DL (0.55-1.30); GLOMERULAR FILTRATION RATE > 60.0 (>51); GLUCOSE, FASTING 46 MG/DL (60-100); MAGNESIUM LEVEL 1.6 MG/DL (1.8-2.4); SODIUM LEVEL 144 MMOL/L (136-145); TOTAL PROTEIN 7.2 G/DL (5.7-8.2)
== END ==
LOC: M LAB 09:02
PROVIDERS: ATTEND Family Medicine
DX: R60.9 Edema, unspecified (principal); E03.9 Hypothyroidism, unspecified; D56.0 Alpha thalassemia; R79.89 Other specified abnormal findings of blood chemistry

== ENCOUNTER → 2022-11-01 | Outpatient (CLI) | payer MEDICARE, MEDICAID ==
[~2022-11-01] MED LIST changes: +DULO1CAP6 PO; +METO5TAB2 JT; -METO5TAB2 PO; +MILKSUS3 PO; +MIRA1POW3 JT; +TOPI-254 JT
[2022-11-01 17:55] LABS: INR 0.94; PROTHROMBIN TIME 12.8 SECONDS (12.5-14.5)
[2022-11-01 18:09] LABS: IRON (FE) 180 UG/DL (50-170)
[2022-11-01 18:10] LABS: PERCENT SATURATION 73.8 % (13.2-45.0); TOTAL IRON BINDING CAPACITY 244 UG/DL (250-425)
[2022-11-01 18:15] LABS: ACETAMINOPHEN LEVEL < 2.0 UG/ML (10.0-20.0)
[2022-11-01 18:29] LABS: HEPATITIS B SURFACE ANTIGEN NEGATIVE (NEGATIVE)
[2022-11-01 18:50] LABS: HEPATITIS C VIRUS ABY INDEX 0.11 INDEX (<0.8)
[2022-11-01 18:51] LABS: HEPATITIS B CORE ANTIBODY IGM NEGATIVE (NEGATIVE)
[2022-11-01 18:52] LABS: FERRITIN 3368.6 NG/ML (7.3-270.7)
[2022-11-01 19:11] LABS: ALBUMIN 3.3 G/DL (3.2-5.2); ALKALINE PHOSPHATASE 900 U/L (46-116); ALT/SGPT 1034 U/L (7.0-40); AST/SGOT 554 U/L (<34); BILIRUBIN,DIRECT < 0.1 MG/DL (<0.4); BILIRUBIN,TOTAL < 0.2 MG/DL (0.3-1.2)
== END ==
LOC: M LAB 16:47
PROVIDERS: ATTEND Internal Medicine Gastroenterology
DX: R74.01 Elevation of levels of liver transaminase levels (principal)

== ENCOUNTER 2022-11-03 15:40 | Emergency (ER) | payer MEDICARE, MEDICAID ==
[~2022-11-03 15:40] MED LIST changes: -DULO1CAP6 PO; -MILKSUS3 PO; -MIRA1POW3 JT; -TOPI-254 JT
[2022-11-03 16:34] VITALS: TEMP 96.1
[2022-11-03 17:31] LABS: BASO % 0.2 % (0.0-1.0); EOS # 0.1 10^3/uL (0.0-0.5); EOS % 1.2 % (0.0-3.0); HEMATOCRIT 29.9 % (36.0-47.0); LYMPH # 2.1 10^3/uL (1.5-5.0); LYMPH % 43.6 % (24.0-44.0); MEAN CORPUSCULAR HGB CONC 30.1 g/dl (32.0-36.5); MEAN CORPUSCULAR VOLUME 103.1 fl (80.0-96.0); MONO # 0.5 10^3/uL (0.0-0.8); MONO % 10.7 % (2.0-8.0); NEUTROPHILS # 2.1 10^3/uL (1.5-8.5); NEUTROPHILS % 44.1 % (36.0-66.0); PLATELET COUNT, AUTOMATED 134 10^3/uL (150-450); WHITE BLOOD COUNT 4.9 10^3/uL (4.0-10.0)
[2022-11-03 17:52] LABS: ALBUMIN 3.2 G/DL (3.2-5.2); ALKALINE PHOSPHATASE 815 U/L (46-116); ALT/SGPT 730 U/L (7.0-40); AST/SGOT 232 U/L (<34); BILIRUBIN,DIRECT < 0.1 MG/DL (<0.4); BILIRUBIN,TOTAL < 0.2 MG/DL (0.3-1.2); BLOOD UREA NITROGEN 13 MG/DL (9-23); CALCIUM LEVEL 9.3 MG/DL (8.5-10.1); CARBON DIOXIDE LEVEL 30 MMOL/L (20-31); CHLORIDE LEVEL 110 MMOL/L (98-107); CREATININE FOR GFR 0.74 MG/DL (0.55-1.30); GLOMERULAR FILTRATION RATE > 60.0 (>51); GLUCOSE, FASTING 95 MG/DL (60-100); POTASSIUM SERUM 5.9 MMOL/L (3.5-5.1); SODIUM LEVEL 143 MMOL/L (136-145); TOTAL PROTEIN 6.8 G/DL (5.7-8.2)
[2022-11-03] MEDS ORDERED: PATIROMER SORBITEX CALCIUM 8.4 GM POWDER PACKET (VELTASSA) PO ONE (18:10)
[2022-11-03] MEDS ORDERED: DEXTROSE 50% 50ML SYRINGE IV ONE (18:10)
[2022-11-03] MEDS ORDERED: CALCIUM CHLORIDE 10% 1 GM/10 ML SYR IV ONE (18:10)
[2022-11-03] MEDS ORDERED: HumuLIN R (REGULAR) INSULIN (NovoLIN R) **100U/ML** PER UNIT IV ONE (18:10)
[2022-11-03] MEDS: NS 1,000 ML IV SCH ×2 (18:24→18:31)
[2022-11-03] MEDS ORDERED: MED REC IN PROGRESS XX SCH (19:35)
[2022-11-03 19:51] LABS: RSV AMPLIFICATION NEGATIVE (NEGATIVE)
[2022-11-03] MEDS ORDERED: SIME40DR31 JT (21:22)
[2022-11-03] MEDS ORDERED: TOPI-254 JT ×3 (21:22)
[2022-11-03] MEDS ORDERED: MIRA1POW3 JT (21:22)
[2022-11-03] MEDS ORDERED: DULO1CAP6 PO ×2 (21:22)
[2022-11-03] MEDS ORDERED: MILKSUS3 PO (21:22)
[2022-11-03] MEDS ORDERED: HOME MED LIST COMPLETE! XX SCH (21:30)
[2022-11-03 22:30] VITALS: BP 112/76; O2SAT 97
== END 2022-11-03 22:45 | disposition home or self-care (01) ==
LOC: EDBD 15:40 → M ED 15:40
DX: E87.5 Hyperkalemia (principal); R74.01 Elevation of levels of liver transaminase levels; K76.6 Portal hypertension; Z79.899 Other long term (current) drug therapy; F88 Other disorders of psychological development; Z93.1 Gastrostomy status
CPT/HCPCS: 36415; 76700; 80048; 80076; 82390; 82977; 84132; 85025; 85610; 86645; 86665; 86695; 86696; 87631; 93005; 93041; 93975; 94760; 96361; 96374; 96375; 99284; J1815

== ENCOUNTER → 2022-11-03 | Outpatient (CLI) | payer MEDICARE, MEDICAID | LOC: M WHC 09:06 | PROVIDERS: ATTEND Internal Medicine Gastroenterology | DX: K76.6 Portal hypertension (principal); R74.01 Elevation of levels of liver transaminase levels ==

== ENCOUNTER → 2022-11-03 | Outpatient (CLI) | payer MEDICARE, MEDICAID ==
[2022-11-03 13:59] LABS: BASO % 0.4 % (0.0-1.0); EOS # 0.1 10^3/uL (0.0-0.5); EOS % 1.4 % (0.0-3.0); HEMATOCRIT 31.4 % (36.0-47.0); HEMOGLOBIN 9.5 g/dl (12.0-15.5); LYMPH # 2.5 10^3/uL (1.5-5.0); LYMPH % 49.4 % (24.0-44.0); MEAN CORPUSCULAR HEMOGLOBIN 31.5 pg (27.0-33.0); MEAN CORPUSCULAR HGB CONC 30.3 g/dl (32.0-36.5); MONO # 0.5 10^3/uL (0.0-0.8); MONO % 9.7 % (2.0-8.0); NEUTROPHILS % 39.1 % (36.0-66.0); PLATELET COUNT, AUTOMATED 151 10^3/uL (150-450); RED BLOOD COUNT 3.02 10^6/uL (4.00-5.40); WHITE BLOOD COUNT 5.1 10^3/uL (4.0-10.0)
[2022-11-03 14:07] LABS: PROTHROMBIN TIME 13.4 SECONDS (12.5-14.5)
[2022-11-03 14:40] LABS: ALBUMIN 3.4 G/DL (3.2-5.2); ALKALINE PHOSPHATASE 889 U/L (46-116); ALT/SGPT 789 U/L (7.0-40); AST/SGOT 275 U/L (<34); BILIRUBIN,DIRECT < 0.1 MG/DL (<0.4); BILIRUBIN,TOTAL 0.2 MG/DL (0.3-1.2); BLOOD UREA NITROGEN 12 MG/DL (9-23); CALCIUM LEVEL 9.7 MG/DL (8.5-10.1); CARBON DIOXIDE LEVEL 30 MMOL/L (20-31); CHLORIDE LEVEL 108 MMOL/L (98-107); CREATININE FOR GFR 0.76 MG/DL (0.55-1.30); GLOMERULAR FILTRATION RATE > 60.0 (>51); GLUCOSE, FASTING 80 MG/DL (60-100); POTASSIUM SERUM 6.2 MMOL/L (3.5-5.1); SODIUM LEVEL 141 MMOL/L (136-145)
[2022-11-04 14:11] LABS: CERULOPLASMIN 34.6 mg/dL (19.0-39.0); CYTOMEGALOVIRUS IgM ANTIBODY <30.0 AU/mL (0.0-29.9); EBV VIRAL CAPSID AG IgM <36.0 U/mL (0.0-35.9); HSV TYPE I IgG SPECIFIC <0.91 index (0.00-0.90); HSV TYPE II IgG SPECIFIC <0.91 index (0.00-0.90)
== END ==
LOC: M PLALAB 10:02
PROVIDERS: ATTEND Internal Medicine Gastroenterology
DX: R74.01 Elevation of levels of liver transaminase levels (principal); Z79.899 Other long term (current) drug therapy

== ENCOUNTER 2022-11-04 13:19 | Emergency (ER) | payer MEDICARE, MEDICAID ==
[~2022-11-04] VITALS: Ht 165.1 cm; Wt 57.5 kg
[~2022-11-04 13:19] MED LIST changes: +DULO1CAP6 PO; +MILKSUS3 PO; +MIRA1POW3 JT; +TOPI-254 JT
[2022-11-04] MEDS ORDERED: NS 1,000 ML IV ONE ×2 (13:45→18:00)
[2022-11-04 14:28] LABS: BASO % 0.1 % (0.0-1.0); EOS % 0.3 % (0.0-3.0); HEMATOCRIT 31.3 % (36.0-47.0); HEMOGLOBIN 9.6 g/dl (12.0-15.5); LYMPH # 1.9 10^3/uL (1.5-5.0); LYMPH % 24.1 % (24.0-44.0); MEAN CORPUSCULAR HEMOGLOBIN 31.3 pg (27.0-33.0); MEAN CORPUSCULAR HGB CONC 30.7 g/dl (32.0-36.5); MONO # 0.5 10^3/uL (0.0-0.8); MONO % 5.9 % (2.0-8.0); NEUTROPHILS # 5.5 10^3/uL (1.5-8.5); NEUTROPHILS % 69.3 % (36.0-66.0); PLATELET COUNT, AUTOMATED 146 10^3/uL (150-450); RED BLOOD COUNT 3.07 10^6/uL (4.00-5.40)
[2022-11-04] MEDS ORDERED: ONDANSETRON 4MG 2ML VIAL IV STA (14:36)
[2022-11-04] MEDS ORDERED: ISOVUE-370 76% 100ML VIAL As Ordered ONE (14:38)
[2022-11-04] MEDS ORDERED: IPRATROPIUM 0.5MG/ALBUTEROL 2.5MG INH SOL UD 3ML (DUONEB) NEB ONE (14:40)
[2022-11-04 15:02] LABS: RSV AMPLIFICATION NEGATIVE (NEGATIVE)
[2022-11-04] MEDS ORDERED: ONDANSETRON 4MG 2ML VIAL IV ONE (15:40)
[2022-11-04 15:46] LABS: LIPASE 47 U/L (12-53)
[2022-11-04 15:48] LABS: AMYLASE 199 U/L (30-118)
[2022-11-04 15:53] LABS: ALBUMIN 3.2 G/DL (3.2-5.2); ALKALINE PHOSPHATASE 812 U/L (46-116); ALT/SGPT 574 U/L (7.0-40); AST/SGOT 163 U/L (<34); BILIRUBIN,DIRECT < 0.1 MG/DL (<0.4); BILIRUBIN,TOTAL < 0.2 MG/DL (0.3-1.2); BLOOD UREA NITROGEN 15 MG/DL (9-23); CALCIUM LEVEL 9.7 MG/DL (8.5-10.1); CARBON DIOXIDE LEVEL 27 MMOL/L (20-31); CHLORIDE LEVEL 110 MMOL/L (98-107); CPK CREATINE PHOSPHOKINASE 140 U/L (34-145); CREATININE FOR GFR 0.77 MG/DL (0.55-1.30); GLOMERULAR FILTRATION RATE > 60.0 (>51); GLUCOSE, FASTING 107 MG/DL (60-100); POTASSIUM SERUM 5.5 MMOL/L (3.5-5.1); SODIUM LEVEL 142 MMOL/L (136-145); TOTAL PROTEIN 6.9 G/DL (5.7-8.2)
[2022-11-04 18:57] VITALS: O2SAT 96
[2022-11-04 19:00] VITALS: BP 127/78; TEMP 97
== END 2022-11-04 19:13 | disposition short-term general hospital (02) ==
LOC: M ED 13:19 → EDBD 13:19 → M ED 19:13
DX: R11.10 Vomiting, unspecified (principal); R74.01 Elevation of levels of liver transaminase levels; K76.89 Other specified diseases of liver; K83.8 Other specified diseases of biliary tract; R62.50 Unspecified lack of expected normal physiological development in childhood; R13.10 Dysphagia, unspecified; D25.9 Leiomyoma of uterus, unspecified; E03.9 Hypothyroidism, unspecified; D56.0 Alpha thalassemia; F41.9 Anxiety disorder, unspecified; F32.A Depression, unspecified; Z79.899 Other long term (current) drug therapy
CPT/HCPCS: 71045; 74177; 76705; 80047; 80048; 80076; 82140; 82150; 82550; 82553; 83605; 83690; 84484; 85025; 86255; 87040; 87631; 93005; 93041; 96361; 96374; 96376; 99285; J2405; Q9967

== ENCOUNTER → 2022-11-22 | Outpatient (CLI) | payer MEDICARE, MEDICAID ==
[2022-11-22 13:11] LABS: ALBUMIN 3.1 G/DL (3.2-5.2); ALKALINE PHOSPHATASE 855 U/L (46-116); ALT/SGPT 132 U/L (7.0-40); AST/SGOT 96 U/L (<34); BILIRUBIN,TOTAL 0.2 MG/DL (0.3-1.2); BLOOD UREA NITROGEN 11 MG/DL (9-23); CALCIUM LEVEL 10.2 MG/DL (8.5-10.1); CARBON DIOXIDE LEVEL 35 MMOL/L (20-31); CHLORIDE LEVEL 101 MMOL/L (98-107); CREATININE FOR GFR 0.72 MG/DL (0.55-1.30); GLOMERULAR FILTRATION RATE > 60.0 (>51); GLUCOSE, FASTING 80 MG/DL (60-100); POTASSIUM SERUM 4.2 MMOL/L (3.5-5.1); SODIUM LEVEL 143 MMOL/L (136-145); TOTAL PROTEIN 7.5 G/DL (5.7-8.2)
== END ==
LOC: M WUC 09:15
PROVIDERS: ATTEND Registered Nurse
DX: E63.9 Nutritional deficiency, unspecified (principal); K31.84 Gastroparesis; R53.83 Other fatigue; R79.89 Other specified abnormal findings of blood chemistry

== ENCOUNTER → 2022-12-04 | Outpatient (CLI) | payer MEDICARE, MEDICAID ==
[2022-12-04 17:13] LABS: ALBUMIN 3.3 G/DL (3.2-5.2); ALKALINE PHOSPHATASE 647 U/L (46-116); ALT/SGPT 100 U/L (7.0-40); AST/SGOT 58 U/L (<34); BILIRUBIN,TOTAL < 0.2 MG/DL (0.3-1.2); BLOOD UREA NITROGEN 17 MG/DL (9-23); CARBON DIOXIDE LEVEL 31 MMOL/L (20-31); CHLORIDE LEVEL 104 MMOL/L (98-107); CREATININE FOR GFR 0.67 MG/DL (0.55-1.30); GLOMERULAR FILTRATION RATE > 60.0 (>51); GLUCOSE, FASTING 63 MG/DL (60-100); POTASSIUM SERUM 4.3 MMOL/L (3.5-5.1); SODIUM LEVEL 142 MMOL/L (136-145); TOTAL PROTEIN 7.5 G/DL (5.7-8.2)
== END ==
LOC: M WUC 12:59
PROVIDERS: ATTEND Registered Nurse
DX: R74.01 Elevation of levels of liver transaminase levels (principal)

== ENCOUNTER → 2022-12-11 | Outpatient (CLI) | payer MEDICARE, MEDICAID ==
[2022-12-11 17:51] LABS: ALBUMIN 3.2 G/DL (3.2-5.2); ALKALINE PHOSPHATASE 476 U/L (46-116); ALT/SGPT 96 U/L (7.0-40); AST/SGOT 58 U/L (<34); BILIRUBIN,TOTAL < 0.2 MG/DL (0.3-1.2); BLOOD UREA NITROGEN 27 MG/DL (9-23); CALCIUM LEVEL 9.7 MG/DL (8.5-10.1); CARBON DIOXIDE LEVEL 30 MMOL/L (20-31); CHLORIDE LEVEL 103 MMOL/L (98-107); CREATININE FOR GFR 0.62 MG/DL (0.55-1.30); GLOMERULAR FILTRATION RATE > 60.0 (>51); GLUCOSE, FASTING 75 MG/DL (60-100); POTASSIUM SERUM 4.7 MMOL/L (3.5-5.1); SODIUM LEVEL 139 MMOL/L (136-145); TOTAL PROTEIN 7.3 G/DL (5.7-8.2)
== END ==
LOC: M WUC 13:56
PROVIDERS: ATTEND Registered Nurse
DX: R74.01 Elevation of levels of liver transaminase levels (principal)

== ENCOUNTER → 2022-12-19 | Outpatient (CLI) | payer MEDICARE, MEDICAID ==
[2022-12-19 12:12] LABS: ALBUMIN 3.3 G/DL (3.2-5.2); ALKALINE PHOSPHATASE 410 U/L (46-116); ALT/SGPT 196 U/L (7.0-40); AST/SGOT 153 U/L (<34); BILIRUBIN,TOTAL < 0.2 MG/DL (0.3-1.2); BLOOD UREA NITROGEN 26 MG/DL (9-23); CALCIUM LEVEL 9.6 MG/DL (8.5-10.1); CARBON DIOXIDE LEVEL 30 MMOL/L (20-31); CHLORIDE LEVEL 104 MMOL/L (98-107); CREATININE FOR GFR 0.61 MG/DL (0.55-1.30); GLOMERULAR FILTRATION RATE > 60.0 (>51); GLUCOSE, FASTING 85 MG/DL (60-100); POTASSIUM SERUM 4.6 MMOL/L (3.5-5.1); SODIUM LEVEL 141 MMOL/L (136-145); TOTAL PROTEIN 7.4 G/DL (5.7-8.2)
== END ==
LOC: M WUC 10:40
PROVIDERS: ATTEND Registered Nurse
DX: R79.89 Other specified abnormal findings of blood chemistry (principal); R74.01 Elevation of levels of liver transaminase levels

== ENCOUNTER → 2022-12-25 | Outpatient (CLI) | payer MEDICARE, MEDICAID ==
[2022-12-25 18:18] LABS: ALBUMIN 3.3 G/DL (3.2-5.2); ALKALINE PHOSPHATASE 369 U/L (46-116); ALT/SGPT 167 U/L (7.0-40); AST/SGOT 72 U/L (<34); BILIRUBIN,TOTAL < 0.2 MG/DL (0.3-1.2); BLOOD UREA NITROGEN 24 MG/DL (9-23); CALCIUM LEVEL 9.8 MG/DL (8.5-10.1); CARBON DIOXIDE LEVEL 30 MMOL/L (20-31); CHLORIDE LEVEL 105 MMOL/L (98-107); CREATININE FOR GFR 0.68 MG/DL (0.55-1.30); GLOMERULAR FILTRATION RATE > 60.0 (>51); GLUCOSE, FASTING 69 MG/DL (60-100); POTASSIUM SERUM 4.6 MMOL/L (3.5-5.1); SODIUM LEVEL 140 MMOL/L (136-145); TOTAL PROTEIN 7.2 G/DL (5.7-8.2)
== END ==
LOC: M WUC 14:12
PROVIDERS: ATTEND Registered Nurse
DX: R94.5 Abnormal results of liver function studies (principal)

== ENCOUNTER → 2023-01-02 | Outpatient (CLI) | payer MEDICARE, MEDICAID ==
[2023-01-02 12:45] LABS: ALBUMIN 3.4 G/DL (3.2-5.2); ALKALINE PHOSPHATASE 401 U/L (46-116); ALT/SGPT 196 U/L (7.0-40); AST/SGOT 68 U/L (<34); BILIRUBIN,TOTAL < 0.2 MG/DL (0.3-1.2); BLOOD UREA NITROGEN 21 MG/DL (9-23); CALCIUM LEVEL 9.5 MG/DL (8.5-10.1); CARBON DIOXIDE LEVEL 30 MMOL/L (20-31); CHLORIDE LEVEL 104 MMOL/L (98-107); CREATININE FOR GFR 0.64 MG/DL (0.55-1.30); GLOMERULAR FILTRATION RATE > 60.0 (>51); GLUCOSE, FASTING 87 MG/DL (60-100); POTASSIUM SERUM 4.3 MMOL/L (3.5-5.1); SODIUM LEVEL 139 MMOL/L (136-145); TOTAL PROTEIN 7.5 G/DL (5.7-8.2)
== END ==
LOC: M WUC 10:53
PROVIDERS: ATTEND Registered Nurse
DX: R74.01 Elevation of levels of liver transaminase levels (principal); R79.89 Other specified abnormal findings of blood chemistry

== ENCOUNTER → 2023-01-10 | Outpatient (REF) | payer MEDICARE, MEDICAID ==
[2023-01-10 18:11] LABS: ALBUMIN 3.5 G/DL (3.2-5.2); ALKALINE PHOSPHATASE 364 U/L (46-116); ALT/SGPT 123 U/L (7.0-40); AST/SGOT 58 U/L (<34); BILIRUBIN,TOTAL < 0.2 MG/DL (0.3-1.2); BLOOD UREA NITROGEN 22 MG/DL (9-23); CALCIUM LEVEL 9.7 MG/DL (8.5-10.1); CARBON DIOXIDE LEVEL 27 MMOL/L (20-31); CHLORIDE LEVEL 104 MMOL/L (98-107); CREATININE FOR GFR 0.91 MG/DL (0.55-1.30); GLOMERULAR FILTRATION RATE > 60.0 (>51); GLUCOSE, FASTING 80 MG/DL (60-100); POTASSIUM SERUM 5.1 MMOL/L (3.5-5.1); SODIUM LEVEL 139 MMOL/L (136-145); TOTAL PROTEIN 7.1 G/DL (5.7-8.2)
== END ==
LOC: M LABWUC 16:28
PROVIDERS: ATTEND Registered Nurse
DX: R74.01 Elevation of levels of liver transaminase levels (principal)

== ENCOUNTER → 2023-01-13 | Outpatient (CLI) | payer MEDICARE, MEDICAID | LOC: M LAB 12:18 | PROVIDERS: ATTEND Registered Nurse | DX: Z79.899 Other long term (current) drug therapy (principal); B95.7 Other staphylococcus as the cause of diseases classified elsewhere ==

== ENCOUNTER → 2023-01-16 | Outpatient (CLI) | payer MEDICARE, MEDICAID ==
[2023-01-16 17:22] LABS: ALBUMIN 3.2 G/DL (3.2-5.2); ALKALINE PHOSPHATASE 413 U/L (46-116); ALT/SGPT 405 U/L (7.0-40); AST/SGOT 230 U/L (<34); BILIRUBIN,TOTAL < 0.2 MG/DL (0.3-1.2); BLOOD UREA NITROGEN 34 MG/DL (9-23); CALCIUM LEVEL 9.4 MG/DL (8.5-10.1); CARBON DIOXIDE LEVEL 28 MMOL/L (20-31); CHLORIDE LEVEL 104 MMOL/L (98-107); CREATININE FOR GFR 0.82 MG/DL (0.55-1.30); GLOMERULAR FILTRATION RATE > 60.0 (>51); GLUCOSE, FASTING 99 MG/DL (60-100); POTASSIUM SERUM 5.4 MMOL/L (3.5-5.1); SODIUM LEVEL 137 MMOL/L (136-145); TOTAL PROTEIN 6.9 G/DL (5.7-8.2)
== END ==
LOC: M WUC 13:37
PROVIDERS: ATTEND Registered Nurse
DX: R74.01 Elevation of levels of liver transaminase levels (principal)

== ENCOUNTER → 2023-01-31 | Outpatient (CLI) | payer MEDICARE, MEDICAID ==
[2023-01-31 15:29] LABS: ALBUMIN 3.1 G/DL (3.2-5.2); ALKALINE PHOSPHATASE 369 U/L (46-116); ALT/SGPT 200 U/L (7.0-40); AST/SGOT 79 U/L (<34); BILIRUBIN,TOTAL < 0.2 MG/DL (0.3-1.2); BLOOD UREA NITROGEN 22 MG/DL (9-23); CALCIUM LEVEL 9.6 MG/DL (8.5-10.1); CARBON DIOXIDE LEVEL 28 MMOL/L (20-31); CHLORIDE LEVEL 110 MMOL/L (98-107); GLOMERULAR FILTRATION RATE > 60.0 (>51); GLUCOSE, FASTING 104 MG/DL (60-100); POTASSIUM SERUM 4.7 MMOL/L (3.5-5.1); SODIUM LEVEL 141 MMOL/L (136-145); TOTAL PROTEIN 7.1 G/DL (5.7-8.2)
== END ==
LOC: M LAB 14:33
PROVIDERS: ATTEND Registered Nurse
DX: R74.01 Elevation of levels of liver transaminase levels (principal)

== ENCOUNTER → 2023-02-07 | Outpatient (CLI) | payer MEDICARE, MEDICAID ==
[~2023-02-07] MED LIST changes: -CEFD300C41 PO; +CEFD300C42 PO
[2023-02-07 17:22] LABS: ALBUMIN 3.1 G/DL (3.2-5.2); ALKALINE PHOSPHATASE 289 U/L (46-116); ALT/SGPT 95 U/L (7.0-40); AST/SGOT 47 U/L (<34); BILIRUBIN,TOTAL 0.2 MG/DL (0.3-1.2); BLOOD UREA NITROGEN 13 MG/DL (9-23); CALCIUM LEVEL 9.8 MG/DL (8.5-10.1); CARBON DIOXIDE LEVEL 27 MMOL/L (20-31); CHLORIDE LEVEL 108 MMOL/L (98-107); CREATININE FOR GFR 0.73 MG/DL (0.55-1.30); GLOMERULAR FILTRATION RATE > 60.0 (>51); GLUCOSE, FASTING 117 MG/DL (60-100); POTASSIUM SERUM 3.5 MMOL/L (3.5-5.1); SODIUM LEVEL 145 MMOL/L (136-145); TOTAL PROTEIN 7.2 G/DL (5.7-8.2)
== END ==
LOC: M WUC 10:52
PROVIDERS: ATTEND Registered Nurse
DX: R74.01 Elevation of levels of liver transaminase levels (principal)

== ENCOUNTER → 2023-02-14 | Outpatient (REF) | payer MEDICARE, MEDICAID ==
[2023-02-14 17:29] LABS: ALBUMIN 3.3 G/DL (3.2-5.2); ALKALINE PHOSPHATASE 298 U/L (46-116); ALT/SGPT 75 U/L (7.0-40); AST/SGOT 41 U/L (<34); BILIRUBIN,TOTAL < 0.2 MG/DL (0.3-1.2); BLOOD UREA NITROGEN 19 MG/DL (9-23); CALCIUM LEVEL 9.8 MG/DL (8.5-10.1); CARBON DIOXIDE LEVEL 29 MMOL/L (20-31); CHLORIDE LEVEL 105 MMOL/L (98-107); CREATININE FOR GFR 0.78 MG/DL (0.55-1.30); GLOMERULAR FILTRATION RATE > 60.0 (>51); GLUCOSE, FASTING 97 MG/DL (60-100); POTASSIUM SERUM 4.6 MMOL/L (3.5-5.1); SODIUM LEVEL 142 MMOL/L (136-145); TOTAL PROTEIN 7.6 G/DL (5.7-8.2)
== END ==
LOC: M LABWUC 16:19
PROVIDERS: ATTEND Registered Nurse
DX: R74.01 Elevation of levels of liver transaminase levels (principal)

== ENCOUNTER → 2023-02-27 | Outpatient (REF) | payer MEDICARE, MEDICAID ==
[2023-02-27 18:01] LABS: ALBUMIN 3.6 G/DL (3.2-5.2); ALKALINE PHOSPHATASE 295 U/L (46-116); ALT/SGPT 88 U/L (7.0-40); AST/SGOT 57 U/L (<34); BILIRUBIN,TOTAL < 0.2 MG/DL (0.3-1.2); BLOOD UREA NITROGEN 19 MG/DL (9-23); CALCIUM LEVEL 10.2 MG/DL (8.5-10.1); CARBON DIOXIDE LEVEL 28 MMOL/L (20-31); CHLORIDE LEVEL 104 MMOL/L (98-107); GLOMERULAR FILTRATION RATE > 60.0 (>51); GLUCOSE, FASTING 78 MG/DL (60-100); POTASSIUM SERUM 4.9 MMOL/L (3.5-5.1); SODIUM LEVEL 142 MMOL/L (136-145); TOTAL PROTEIN 8.3 G/DL (5.7-8.2)
== END ==
LOC: M LABWUC 16:55
PROVIDERS: ATTEND Registered Nurse
DX: R74.01 Elevation of levels of liver transaminase levels (principal)

== ENCOUNTER → 2023-03-07 | Outpatient (CLI) | payer MEDICARE, MEDICAID ==
[2023-03-07 10:22] LABS: HEMATOCRIT 30.7 % (36.0-47.0); HEMOGLOBIN 9.3 g/dl (12.0-15.5); MEAN CORPUSCULAR HEMOGLOBIN 31.4 pg (27.0-33.0); MEAN CORPUSCULAR HGB CONC 30.3 g/dl (32.0-36.5); MEAN CORPUSCULAR VOLUME 103.7 fl (80.0-96.0); PLATELET COUNT, AUTOMATED 181 10^3/uL (150-450); RED BLOOD COUNT 2.96 10^6/uL (4.00-5.40); WHITE BLOOD COUNT 4.6 10^3/uL (4.0-10.0)
[2023-03-07 10:55] LABS: ALBUMIN 3.1 G/DL (3.2-5.2); ALKALINE PHOSPHATASE 229 U/L (46-116); ALT/SGPT 56 U/L (7.0-40); AST/SGOT 42 U/L (<34); BILIRUBIN,TOTAL 0.2 MG/DL (0.3-1.2); BLOOD UREA NITROGEN 22 MG/DL (9-23); CALCIUM LEVEL 10.1 MG/DL (8.5-10.1); CARBON DIOXIDE LEVEL 32 MMOL/L (20-31); CHLORIDE LEVEL 102 MMOL/L (98-107); GLOMERULAR FILTRATION RATE > 60.0 (>51); GLUCOSE, FASTING 66 MG/DL (60-100); POTASSIUM SERUM 4.3 MMOL/L (3.5-5.1); SODIUM LEVEL 141 MMOL/L (136-145); TOTAL PROTEIN 7.4 G/DL (5.7-8.2)
== END ==
LOC: M WUC 08:40
PROVIDERS: ATTEND Registered Nurse
DX: K31.84 Gastroparesis (principal)

== ENCOUNTER 2023-03-30 12:08 | Emergency (ER) | payer MEDICARE, MEDICAID ==
[~2023-03-30] VITALS: Ht 172.7 cm; Wt 52.7 kg
[~2023-03-30 12:08] MED LIST changes: +CEFD1CAP9 PO; -CEFD300C42 PO; +FLUO20CA22; +LACT10SO3; +ONDA-83; +TOPI-21 JT; -TOPI-254 JT
[2023-03-30 12:49] VITALS: TEMP 96.6; O2SAT 98
[2023-03-30 13:54] LABS: BASO % 0.3 % (0.0-1.0); EOS # 0.1 10^3/uL (0.0-0.5); EOS % 1.4 % (0.0-3.0); HEMATOCRIT 30.7 % (36.0-47.0); HEMOGLOBIN 9.2 g/dl (12.0-15.5); LYMPH % 34.1 % (24.0-44.0); MEAN CORPUSCULAR HEMOGLOBIN 31.4 pg (27.0-33.0); MEAN CORPUSCULAR VOLUME 104.8 fl (80.0-96.0); MONO # 0.7 10^3/uL (0.0-0.8); MONO % 12.3 % (2.0-8.0); NEUTROPHILS % 51.7 % (36.0-66.0); PLATELET COUNT, AUTOMATED 513 10^3/uL (150-450); RED BLOOD COUNT 2.93 10^6/uL (4.00-5.40); WHITE BLOOD COUNT 5.9 10^3/uL (4.0-10.0)
[2023-03-30 14:08] LABS: INR 1.06; PROTHROMBIN TIME 13.5 SECONDS (12.5-14.5)
[2023-03-30 14:09] LABS: PARTIAL THROMBOPLASTIN TIME 43.5 SECONDS (24.8-34.2)
[2023-03-30 14:22] LABS: BLOOD UREA NITROGEN 19 MG/DL (9-23); CALCIUM LEVEL 9.5 MG/DL (8.5-10.1); CARBON DIOXIDE LEVEL 26 MMOL/L (20-31); CHLORIDE LEVEL 108 MMOL/L (98-107); CREATININE FOR GFR 0.54 MG/DL (0.55-1.30); GLOMERULAR FILTRATION RATE > 60.0 (>51); GLUCOSE, FASTING 73 MG/DL (60-100); POTASSIUM SERUM 5.5 MMOL/L (3.5-5.1); SODIUM LEVEL 141 MMOL/L (136-145)
[2023-03-30] MEDS ORDERED: ISOVUE-370 76% 100ML VIAL As Ordered ONE (14:51)
[2023-03-30 15:00] LABS: LIPASE 144 U/L (12-53)
[2023-03-30 15:03] LABS: ALBUMIN 2.7 G/DL (3.2-5.2); ALKALINE PHOSPHATASE 161 U/L (46-116); ALT/SGPT 28 U/L (7.0-40); AST/SGOT 19 U/L (<34); BILIRUBIN,DIRECT < 0.1 MG/DL (<0.4); BILIRUBIN,TOTAL < 0.2 MG/DL (0.3-1.2); MAGNESIUM LEVEL 1.7 MG/DL (1.8-2.4); TOTAL PROTEIN 6.9 G/DL (5.7-8.2)
[2023-03-30] MEDS ORDERED: PATIROMER SORBITEX CALCIUM 8.4 GM POWDER PACKET (VELTASSA) PO ONE (18:15)
[2023-03-30 19:12] VITALS: BP 120/72
== END 2023-03-30 19:14 | disposition home or self-care (01) ==
LOC: M ED 12:08
DX: E87.5 Hyperkalemia (principal); K52.9 Noninfective gastroenteritis and colitis, unspecified; Z93.2 Ileostomy status; E03.9 Hypothyroidism, unspecified; F80.9 Developmental disorder of speech and language, unspecified; K21.9 Gastro-esophageal reflux disease without esophagitis; F41.9 Anxiety disorder, unspecified; F32.A Depression, unspecified; Z93.1 Gastrostomy status; R13.10 Dysphagia, unspecified; D25.9 Leiomyoma of uterus, unspecified; Z79.899 Other long term (current) drug therapy
CPT/HCPCS: 36415; 74177; 80048; 80076; 83690; 83735; 85025; 85610; 85730; 86850; 86900; 86901; 93005; 99284; Q9967

== ENCOUNTER 2023-04-01 19:44 | Emergency (ER) | payer MEDICARE, MEDICAID ==
[2023-04-01 21:07] VITALS: BP 126/63; TEMP 99; O2SAT 99
== END 2023-04-01 21:07 | disposition home or self-care (01) ==
LOC: M ED 19:44
DX: Z71.1 Person with feared health complaint in whom no diagnosis is made (principal); K21.9 Gastro-esophageal reflux disease without esophagitis; F32.A Depression, unspecified; E03.9 Hypothyroidism, unspecified; Z79.1 Long term (current) use of non-steroidal anti-inflammatories (NSAID); Z79.83 Long term (current) use of bisphosphonates; Z79.899 Other long term (current) drug therapy

== ENCOUNTER → 2023-04-09 | Outpatient (CLI) | payer MEDICARE, MEDICAID ==
[2023-04-09 17:14] LABS: HEMOGLOBIN 9.9 g/dl (12.0-15.5); MEAN CORPUSCULAR HEMOGLOBIN 32.2 pg (27.0-33.0); MEAN CORPUSCULAR HGB CONC 30.9 g/dl (32.0-36.5); MEAN CORPUSCULAR VOLUME 104.2 fl (80.0-96.0); PLATELET COUNT, AUTOMATED 386 10^3/uL (150-450); RED BLOOD COUNT 3.07 10^6/uL (4.00-5.40); WHITE BLOOD COUNT 6.3 10^3/uL (4.0-10.0)
[2023-04-09 17:42] LABS: ALBUMIN 3.3 G/DL (3.2-5.2); ALKALINE PHOSPHATASE 181 U/L (46-116); ALT/SGPT 61 U/L (7.0-40); AST/SGOT 42 U/L (<34); BILIRUBIN,TOTAL < 0.2 MG/DL (0.3-1.2); BLOOD UREA NITROGEN 27 MG/DL (9-23); CALCIUM LEVEL 10.8 MG/DL (8.5-10.1); CARBON DIOXIDE LEVEL 26 MMOL/L (20-31); CHLORIDE LEVEL 107 MMOL/L (98-107); CREATININE FOR GFR 0.56 MG/DL (0.55-1.30); GLOMERULAR FILTRATION RATE > 60.0 (>51); GLUCOSE, FASTING 110 MG/DL (60-100); POTASSIUM SERUM 5.9 MMOL/L (3.5-5.1); SODIUM LEVEL 139 MMOL/L (136-145); TOTAL PROTEIN 7.8 G/DL (5.7-8.2)
== END ==
LOC: M LAB 16:20
PROVIDERS: ATTEND Registered Nurse
DX: E63.9 Nutritional deficiency, unspecified (principal)

== ENCOUNTER → 2023-04-17 | Outpatient (CLI) | payer MEDICARE, MEDICAID ==
[2023-04-17 16:38] LABS: HEMATOCRIT 31.9 % (36.0-47.0); HEMOGLOBIN 9.8 g/dl (12.0-15.5); MEAN CORPUSCULAR HEMOGLOBIN 31.7 pg (27.0-33.0); MEAN CORPUSCULAR HGB CONC 30.7 g/dl (32.0-36.5); MEAN CORPUSCULAR VOLUME 103.2 fl (80.0-96.0); PLATELET COUNT, AUTOMATED 195 10^3/uL (150-450); RED BLOOD COUNT 3.09 10^6/uL (4.00-5.40); WHITE BLOOD COUNT 3.8 10^3/uL (4.0-10.0)
[2023-04-17 16:41] LABS: ALBUMIN 3.3 G/DL (3.2-5.2); ALKALINE PHOSPHATASE 184 U/L (46-116); ALT/SGPT 110 U/L (7.0-40); AST/SGOT 89 U/L (<34); BILIRUBIN,TOTAL < 0.2 MG/DL (0.3-1.2); BLOOD UREA NITROGEN 30 MG/DL (9-23); CARBON DIOXIDE LEVEL 24 MMOL/L (20-31); CHLORIDE LEVEL 107 MMOL/L (98-107); CREATININE FOR GFR 0.56 MG/DL (0.55-1.30); GLOMERULAR FILTRATION RATE > 60.0 (>51); GLUCOSE, FASTING 74 MG/DL (60-100); POTASSIUM SERUM 5.7 MMOL/L (3.5-5.1); SODIUM LEVEL 136 MMOL/L (136-145); TOTAL PROTEIN 7.3 G/DL (5.7-8.2)
== END ==
LOC: M WUC 13:45
PROVIDERS: ATTEND Registered Nurse
DX: E63.9 Nutritional deficiency, unspecified (principal); E78.5 Hyperlipidemia, unspecified

== ENCOUNTER → 2023-05-09 | Outpatient (REF) | payer MEDICARE, MEDICAID ==
[~2023-05-09] MED LIST changes: +ACET-907 PO; +ATIV1TAB10 PO; -FLUO20CA22; +FLUO20CA22 PO; +KALEPOW JT
[2023-05-09 16:57] LABS: HEMATOCRIT 31.2 % (36.0-47.0); HEMOGLOBIN 9.9 g/dl (12.0-15.5); MEAN CORPUSCULAR HEMOGLOBIN 31.5 pg (27.0-33.0); MEAN CORPUSCULAR HGB CONC 31.7 g/dl (32.0-36.5); MEAN CORPUSCULAR VOLUME 99.4 fl (80.0-96.0); PLATELET COUNT, AUTOMATED 126 10^3/uL (150-450); RED BLOOD COUNT 3.14 10^6/uL (4.00-5.40); WHITE BLOOD COUNT 11.7 10^3/uL (4.0-10.0)
[2023-05-09 17:10] LABS: ALBUMIN 2.4 G/DL (3.2-5.2); ALKALINE PHOSPHATASE 238 U/L (46-116); ALT/SGPT 140 U/L (7.0-40); AST/SGOT 61 U/L (<34); BILIRUBIN,TOTAL < 0.2 MG/DL (0.3-1.2); BLOOD UREA NITROGEN 22 MG/DL (9-23); CALCIUM LEVEL 10.4 MG/DL (8.5-10.1); CARBON DIOXIDE LEVEL 18 MMOL/L (20-31); CHLORIDE LEVEL 107 MMOL/L (98-107); CREATININE FOR GFR 0.73 MG/DL (0.55-1.30); GLOMERULAR FILTRATION RATE > 60.0 (>51); GLUCOSE, FASTING 144 MG/DL (60-100); POTASSIUM SERUM 4.9 MMOL/L (3.5-5.1); SODIUM LEVEL 133 MMOL/L (136-145); TOTAL PROTEIN 6.8 G/DL (5.7-8.2)
== END ==
LOC: M LABWUC 16:02
PROVIDERS: ATTEND Registered Nurse
DX: E87.5 Hyperkalemia (principal); E63.9 Nutritional deficiency, unspecified

== ENCOUNTER 2023-05-10 13:03 | Inpatient (IN) | payer MEDICARE, MEDICAID ==
[~2023-05-10] VITALS: Ht 165.1 cm; Wt 56.6 kg
[~2023-05-10 13:03] MED LIST changes: -ACET-907 PO; -ATIV1TAB10 PO; -KALEPOW JT; +RISP-105 JT; -RISP-8 JT
[2023-05-10] MEDS ORDERED: NS 500 ML IV ONE ×3 (13:30→22:25)
[2023-05-10 13:59] LABS: ETHYL ALCOHOL (ETHANOL) 0.009 % (0.000-0.010)
[2023-05-10 14:00] LABS: CK-MB VALUE MASS 3.5 NG/ML (<3.6); CPK CREATINE PHOSPHOKINASE 27 U/L (34-145); MB/CK RELATIVE INDEX 12.96 (< OR =4)
[2023-05-10 14:01] LABS: ALBUMIN 2.3 G/DL (3.2-5.2); ALKALINE PHOSPHATASE 252 U/L (46-116); ALT/SGPT 129 U/L (7.0-40); AST/SGOT 49 U/L (<34); BILIRUBIN,DIRECT < 0.1 MG/DL (<0.4); BILIRUBIN,TOTAL < 0.2 MG/DL (0.3-1.2); BLOOD UREA NITROGEN 24 MG/DL (9-23); CALCIUM LEVEL 9.9 MG/DL (8.5-10.1); CARBON DIOXIDE LEVEL 18 MMOL/L (20-31); CHLORIDE LEVEL 109 MMOL/L (98-107); CREATININE FOR GFR 0.84 MG/DL (0.55-1.30); GLOMERULAR FILTRATION RATE > 60.0 (>51); GLUCOSE, FASTING 83 MG/DL (60-100); POTASSIUM SERUM 5.7 MMOL/L (3.5-5.1); SALICYLATE LEVEL < 3.0 MG/DL (<30); SODIUM LEVEL 134 MMOL/L (136-145); TOTAL PROTEIN 6.7 G/DL (5.7-8.2)
[2023-05-10 14:06] LABS: HEMATOCRIT 30.4 % (36.0-47.0); HEMOGLOBIN 9.8 g/dl (12.0-15.5); MEAN CORPUSCULAR HEMOGLOBIN 31.4 pg (27.0-33.0); MEAN CORPUSCULAR HGB CONC 32.2 g/dl (32.0-36.5); MEAN CORPUSCULAR VOLUME 97.4 fl (80.0-96.0); PLATELET COUNT, AUTOMATED 139 10^3/uL (150-450); RED BLOOD COUNT 3.12 10^6/uL (4.00-5.40); WHITE BLOOD COUNT 13.7 10^3/uL (4.0-10.0)
[2023-05-10] MEDS ORDERED: LIDOCAINE 2% 5ML JELLY UROJET TOP ONE (14:25)
[2023-05-10] MEDS ORDERED: PIPERACILLIN/TAZOBACTAM SOD 4.5 GM in D5W MINI-BAG PLUS 50 ML IV ONE (14:30)
[2023-05-10] MEDS ORDERED: ISOVUE-370 76% 100ML VIAL As Ordered ONE (14:31)
[2023-05-10 14:55] LABS: ATYPICAL LYMPH 4 % (0-5); LYMPHOCYTES 7 % (16-44); METAMYELOCYTES 1 % (0-0); MONOCYTES 5 % (0-5); MYELOCYTES 6 % (0-0); NEUTROPHILS 43 % (28-66)
[2023-05-10 14:56] LABS: ANISOCYTOSIS 1+; HYPOCHROMASIA 1+; PLATELET ESTIMATE NORMAL (NORMAL)
[2023-05-10 14:58] LABS: RSV AMPLIFICATION NEGATIVE (NEGATIVE)
[2023-05-10] MEDS ORDERED: NS 1,000 ML IV ONE ×2 (15:10→19:05)
[2023-05-10] MEDS ORDERED: NS 740 ML in IV 1 EA IV ONE (15:25)
[2023-05-10] MEDS ORDERED: ACET-907 PO (16:31)
[2023-05-10 16:35] LABS: CK-MB VALUE MASS 3.8 NG/ML (<3.6)
[2023-05-10 16:36] LABS: MB/CK RELATIVE INDEX 14.61 (< OR =4)
[2023-05-10] MEDS ORDERED: ATIV1TAB10 PO (16:38)
[2023-05-10] MEDS ORDERED: LEVO88TA3 PO (16:44)
[2023-05-10] MEDS ORDERED: KALEPOW JT (16:47)
[2023-05-10] MEDS ORDERED: HOME MED LIST COMPLETE! XX SCH (16:50)
[2023-05-10] MEDS ORDERED: IPRATROPIUM 0.5MG/ALBUTEROL 2.5MG INH SOL UD 3ML (DUONEB) NEB PRN (18:15)
[2023-05-10] MEDS ORDERED: ACETAMINOPHEN TAB 650MG DOSE (2X325MG) PO PRN (18:15)
[2023-05-10] MEDS ORDERED: BISACODYL 10MG SUPP PR PRN (18:55)
[2023-05-10] MEDS ORDERED: guaiFENesin SYRUP 200MG 10ML UDC JT PRN (18:55)
[2023-05-10] MEDS ORDERED: PATIROMER SORBITEX CALCIUM 8.4 GM POWDER PACKET (VELTASSA) PO ONE (19:00)
[2023-05-10] MEDS ORDERED: CALCIUM GLUCONATE 1,000 MG in D5W MINI-BAG PLUS 100 ML IV ONE (19:00)
[2023-05-10] MEDS: MONTELUKAST 10 MG TAB JT SCH (19:49)
[2023-05-10] MEDS: IPRATROPIUM 0.5MG/ALBUTEROL 2.5MG INH SOL UD 3ML (DUONEB) NEB SCH (20:00)
[2023-05-10] MEDS ORDERED: VANCOMYCIN HCL 750 MG, VIAL MATE ADAPTER 1 EACH in D5W 250 ML IV ONE (20:00)
[2023-05-10 20:02] LABS: BLOOD UREA NITROGEN 18 MG/DL (9-23); CARBON DIOXIDE LEVEL 18 MMOL/L (20-31); CHLORIDE LEVEL 116 MMOL/L (98-107); CREATININE FOR GFR 0.76 MG/DL (0.55-1.30); GLOMERULAR FILTRATION RATE > 60.0 (>51); GLUCOSE, FASTING 74 MG/DL (60-100); POTASSIUM SERUM 5.6 MMOL/L (3.5-5.1); SODIUM LEVEL 141 MMOL/L (136-145)
[2023-05-10 20:04] LABS: THYROID STIMULATING HORMONE 0.535 uIU/ML (0.55-4.78)
[2023-05-10 20:37] LABS: HEPATITIS C VIRUS ABY INDEX 0.05 INDEX (<0.8)
[2023-05-10 20:38] LABS: HEPATITIS B CORE ANTIBODY IGM NEGATIVE (NEGATIVE)
[2023-05-10] MEDS ORDERED: VANCOMYCIN HCL 500 MG in D5W MINI-BAG PLUS 100 ML IV ONE (21:00)
[2023-05-10 21:30] LABS: FREE THYROXINE INDEX 2.7 % (1.3-4.8); T UPTAKE 24.8 % (22.5-37.0)
[2023-05-10] MEDS ORDERED: HYDROCORTISONE 100MG/2ML VIAL IV ONE (22:25)
[2023-05-10] MEDS: TOPIRAMATE (TopAMAX) 25 MG TAB JT SCH (23:00)
[2023-05-10] MEDS: risperiDONE 1 MG TAB JT SCH (23:00)
[2023-05-10] MEDS: BACLOFEN 10 MG TAB JT SCH (23:00)
[2023-05-10] MEDS: guaiFENesin ER TABLET 600 MG TAB PO SCH (23:01)
[2023-05-10] MEDS: SODIUM BICARBONATE 325 MG TAB PO SCH (23:29)
[2023-05-10] MEDS: SIMETHICONE 40MG/0.6ML DROPS 30ML JT SCH (23:29)
[2023-05-11] VITALS (59 sets, daily range): BP systolic 76–166; BP diastolic 42–75; TEMP 94.3–97.5; O2SAT 89–98
[2023-05-11] MEDS: PIPERACILLIN/TAZOBACTAM SOD 4.5 GM in D5W MINI-BAG PLUS 50 ML IV SCH ×5 (00:34→21:56)
[2023-05-11] MEDS: D5W/0.9% SODIUM CHLORIDE 1,000 ML IV SCH ×2 (00:51→01:45)
[2023-05-11 01:50] LABS: BLOOD UREA NITROGEN 16 MG/DL (9-23); CALCIUM LEVEL 9.5 MG/DL (8.5-10.1); CARBON DIOXIDE LEVEL 17 MMOL/L (20-31); CHLORIDE LEVEL 114 MMOL/L (98-107); CREATININE FOR GFR 0.74 MG/DL (0.55-1.30); GLOMERULAR FILTRATION RATE > 60.0 (>51); GLUCOSE, FASTING 65 MG/DL (60-100); POTASSIUM SERUM 5.1 MMOL/L (3.5-5.1); SODIUM LEVEL 137 MMOL/L (136-145)
[2023-05-11] MEDS: NOREPINEPHRINE 4MG IN D5 250ML 4 MG in IV 1 EA IV SCH ×8 (02:50→20:20)
[2023-05-11] MEDS: LEVOTHYROXINE 88MCG TABLET (0.088 MG) PO SCH (05:13)
[2023-05-11 05:23] LABS: HEMATOCRIT 26.4 % (36.0-47.0); HEMOGLOBIN 8.6 g/dl (12.0-15.5); MEAN CORPUSCULAR HGB CONC 32.6 g/dl (32.0-36.5); MEAN CORPUSCULAR VOLUME 95.3 fl (80.0-96.0); PLATELET COUNT, AUTOMATED 122 10^3/uL (150-450); RED BLOOD COUNT 2.77 10^6/uL (4.00-5.40); WHITE BLOOD COUNT 13.4 10^3/uL (4.0-10.0)
[2023-05-11 05:51] LABS: BLOOD UREA NITROGEN 16 MG/DL (9-23); CALCIUM LEVEL 9.3 MG/DL (8.5-10.1); CARBON DIOXIDE LEVEL 16 MMOL/L (20-31); CHLORIDE LEVEL 115 MMOL/L (98-107); CREATININE FOR GFR 0.84 MG/DL (0.55-1.30); GLOMERULAR FILTRATION RATE > 60.0 (>51); GLUCOSE, FASTING 80 MG/DL (60-100); POTASSIUM SERUM 5.5 MMOL/L (3.5-5.1); SODIUM LEVEL 139 MMOL/L (136-145)
[2023-05-11] MEDS ORDERED: VANCOMYCIN HCL 1,000 MG, VIAL MATE ADAPTER 1 EACH in D5W 250 ML IV SCH (06:00)
[2023-05-11 06:02] LABS: ANISOCYTOSIS 1+; ATYPICAL LYMPH 3 % (0-5); LYMPHOCYTES 7 % (16-44); METAMYELOCYTES 1 % (0-0); MONOCYTES 4 % (0-5); MYELOCYTES 8 % (0-0); NEUTROPHILS 57 % (28-66); PLATELET ESTIMATE NORMAL (NORMAL)
[2023-05-11] MEDS: IPRATROPIUM 0.5MG/ALBUTEROL 2.5MG INH SOL UD 3ML (DUONEB) NEB SCH ×4 (07:11→20:12)
[2023-05-11] MEDS: guaiFENesin ER TABLET 600 MG TAB PO SCH ×2 (09:00→20:52)
[2023-05-11] MEDS: BACLOFEN 10 MG TAB JT SCH ×2 (09:28→20:52)
[2023-05-11] MEDS: risperiDONE 1 MG TAB JT SCH ×2 (09:28→20:51)
[2023-05-11] MEDS: TOPIRAMATE (TopAMAX) 25 MG TAB JT SCH ×2 (09:28→20:51)
[2023-05-11] MEDS: FOLIC ACID 1MG TAB JT SCH (09:28)
[2023-05-11] MEDS: SODIUM BICARBONATE 325 MG TAB PO SCH ×2 (09:28→20:51)
[2023-05-11] MEDS: FLUoxetine 20MG CAP PO SCH (09:29)
[2023-05-11] MEDS: SIMETHICONE 40MG/0.6ML DROPS 30ML JT SCH ×3 (09:29→20:52)
[2023-05-11] MEDS ORDERED: LR 1,000 ML IV ONE (11:05)
[2023-05-11] MEDS ORDERED: SOD POLYSTYRENE SULFONATE SUSP 15GM 60ML UD PO ONE (11:30)
[2023-05-11 12:47] LABS: MAGNESIUM LEVEL 1.4 MG/DL (1.8-2.4); PHOSPHORUS LEVEL 4.9 MG/DL (2.5-4.9)
[2023-05-11 13:01] LABS: VENOUS BASE EXCESS -10.3 (-2.0-2.0); VENOUS HCO3 17.2 MMOL/L (23.0-27.0); VENOUS O2 SATURATION 97.6 % (60.0-80.0); VENOUS PARTIAL PRESSURE O2 116.5 mmHg (30.0-50.0); VENOUS PH 7.199 UNITS (7.330-7.430); VENOUS STANDARD HCO3 16.1 MMOL/L; VENOUS TOTAL CO2 18.5 MMOL/L (24.0-28.0)
[2023-05-11] MEDS ORDERED: MAG SULF 1GM/100ML (MAG RUN) 1 GM in IV 1 EA IV ONE (13:10)
[2023-05-11 13:37] LABS: BLOOD UREA NITROGEN 14 MG/DL (9-23); CALCIUM LEVEL 8.8 MG/DL (8.5-10.1); CARBON DIOXIDE LEVEL 18 MMOL/L (20-31); CHLORIDE LEVEL 119 MMOL/L (98-107); CREATININE FOR GFR 0.94 MG/DL (0.55-1.30); GLOMERULAR FILTRATION RATE > 60.0 (>51); GLUCOSE, FASTING 87 MG/DL (60-100); POTASSIUM SERUM 4.7 MMOL/L (3.5-5.1); SODIUM LEVEL 145 MMOL/L (136-145)
[2023-05-11] MEDS ORDERED: SODIUM BICARBONATE 100 MEQ in D5W 1,000 ML IV SCH (15:00)
[2023-05-11] MEDS: LORazepam 0.5 MG TAB PO SCH (16:01)
[2023-05-11 17:29] LABS: ABG BASE EXCESS -8.6 (-2.0-2.0); ABG HCO3 17.7 MMOL/L (22.0-26.0); ABG O2 SATURATION 96.5 % (95.0-99.0); ABG PARTIAL PRESSURE CO2 39.9 mmHg (35.0-45.0); ABG PARTIAL PRESSURE O2 93.6 mmHg (75.0-100.0); ABG STANDARD HCO3 17.4 MMOL/L. (22.0-26.0); ABG TOTAL CO2 18.9 MMOL/L (22.0-29.0); ABG pH (ARTERIAL) 7.265 UNITS (7.350-7.450)
[2023-05-11] MEDS: LR 1,000 ML IV SCH (18:40)
[2023-05-11] MEDS: MONTELUKAST 10 MG TAB JT SCH (18:45)
[2023-05-11] MEDS: VANCOMYCIN HCL 750 MG, VIAL MATE ADAPTER 1 EACH in D5W 250 ML IV SCH (18:45)
[2023-05-11 19:29] LABS: IONIZED CALCIUM 5.1 MG/DL (4.5-5.3)
[2023-05-11 19:55] LABS: BLOOD UREA NITROGEN 14 MG/DL (9-23); CALCIUM LEVEL 8.9 MG/DL (8.5-10.1); CARBON DIOXIDE LEVEL 19 MMOL/L (20-31); CHLORIDE LEVEL 117 MMOL/L (98-107); CREATININE FOR GFR 0.99 MG/DL (0.55-1.30); GLOMERULAR FILTRATION RATE > 60.0 (>51); GLUCOSE, FASTING 121 MG/DL (60-100); MAGNESIUM LEVEL 1.7 MG/DL (1.8-2.4); POTASSIUM SERUM 4.6 MMOL/L (3.5-5.1); SODIUM LEVEL 144 MMOL/L (136-145)
[2023-05-11] MEDS ORDERED: OLANZapine INTRAMUSCULAR 10MG VIAL IM ONE (21:30)
[2023-05-12] VITALS (24 sets, daily range): BP systolic 82–114; BP diastolic 50–71; TEMP 96–97.6; O2SAT 89–100
[2023-05-12 01:20] LABS: IONIZED CALCIUM 5.1 MG/DL (4.5-5.3)
[2023-05-12 01:48] LABS: BLOOD UREA NITROGEN 10 MG/DL (9-23); CALCIUM LEVEL 8.5 MG/DL (8.5-10.1); CARBON DIOXIDE LEVEL 22 MMOL/L (20-31); CHLORIDE LEVEL 113 MMOL/L (98-107); CREATININE FOR GFR 0.91 MG/DL (0.55-1.30); GLOMERULAR FILTRATION RATE > 60.0 (>51); GLUCOSE, FASTING 107 MG/DL (60-100); MAGNESIUM LEVEL 1.7 MG/DL (1.8-2.4); POTASSIUM SERUM 3.9 MMOL/L (3.5-5.1); SODIUM LEVEL 141 MMOL/L (136-145)
[2023-05-12 04:52] LABS: HEMATOCRIT 25.1 % (36.0-47.0); HEMOGLOBIN 8.4 g/dl (12.0-15.5); MEAN CORPUSCULAR HGB CONC 33.5 g/dl (32.0-36.5); MEAN CORPUSCULAR VOLUME 92.6 fl (80.0-96.0); PLATELET COUNT, AUTOMATED 138 10^3/uL (150-450); RED BLOOD COUNT 2.71 10^6/uL (4.00-5.40); WHITE BLOOD COUNT 10.2 10^3/uL (4.0-10.0)
[2023-05-12 05:15] LABS: BLOOD UREA NITROGEN 11 MG/DL (9-23); CALCIUM LEVEL 8.7 MG/DL (8.5-10.1); CARBON DIOXIDE LEVEL 22 MMOL/L (20-31); CHLORIDE LEVEL 114 MMOL/L (98-107); GLOMERULAR FILTRATION RATE > 60.0 (>51); GLUCOSE, FASTING 83 MG/DL (60-100); POTASSIUM SERUM 3.9 MMOL/L (3.5-5.1); SODIUM LEVEL 143 MMOL/L (136-145)
[2023-05-12] MEDS: NOREPINEPHRINE 4MG IN D5 250ML 4 MG in IV 1 EA IV SCH ×8 (05:37→20:56)
[2023-05-12] MEDS: PIPERACILLIN/TAZOBACTAM SOD 4.5 GM in D5W MINI-BAG PLUS 50 ML IV SCH ×4 (05:38→22:14)
[2023-05-12] MEDS: LEVOTHYROXINE 88MCG TABLET (0.088 MG) PO SCH (05:38)
[2023-05-12] MEDS: LR 1,000 ML IV SCH ×2 (05:39→11:31)
[2023-05-12] MEDS: VANCOMYCIN HCL 750 MG, VIAL MATE ADAPTER 1 EACH in D5W 250 ML IV SCH ×2 (05:39→19:30)
[2023-05-12 06:18] LABS: ANISOCYTOSIS 1+; ATYPICAL LYMPH 1 % (0-5); EOSINOPHILS 2 % (0-3); LYMPHOCYTES 16 % (16-44); METAMYELOCYTES 3 % (0-0); MONOCYTES 10 % (0-5); MYELOCYTES 4 % (0-0); NEUTROPHILS 55 % (28-66); PLATELET ESTIMATE DECREASED (NORMAL)
[2023-05-12] MEDS: IPRATROPIUM 0.5MG/ALBUTEROL 2.5MG INH SOL UD 3ML (DUONEB) NEB SCH ×4 (07:28→19:11)
[2023-05-12] MEDS: guaiFENesin ER TABLET 600 MG TAB PO SCH ×2 (09:00→20:54)
[2023-05-12] MEDS ORDERED: MAG SULF 1GM/100ML (MAG RUN) 1 GM in IV 1 EA IV ONE (09:00)
[2023-05-12] MEDS: FLUoxetine 20MG CAP PO SCH (09:50)
[2023-05-12] MEDS: FOLIC ACID 1MG TAB JT SCH (09:50)
[2023-05-12] MEDS: TOPIRAMATE (TopAMAX) 25 MG TAB JT SCH ×2 (09:50→20:56)
[2023-05-12] MEDS: risperiDONE 1 MG TAB JT SCH ×2 (09:50→20:55)
[2023-05-12] MEDS: BACLOFEN 10 MG TAB JT SCH ×2 (09:50→20:54)
[2023-05-12] MEDS: ENOXAPARIN 40MG/0.4ML SYRINGE (J1650 PER 10MG) SC SCH (09:51)
[2023-05-12] MEDS: SIMETHICONE 40MG/0.6ML DROPS 30ML JT SCH ×3 (09:51→20:57)
[2023-05-12] MEDS: LORazepam 0.5 MG TAB PO SCH (14:43)
[2023-05-12] MEDS ORDERED: OXYMETAZOLINE 0.05% NASAL SPRAY (AFRIN) PRN (15:05)
[2023-05-12 15:30] LABS: ANTINUCLEAR ANTIBODIES DIRECT Negative (Negative)
[2023-05-12] MEDS: MONTELUKAST 10 MG TAB JT SCH (17:49)
[2023-05-12] MEDS: IBUPROFEN 400MG TAB JT PRN (20:54)
[2023-05-13] VITALS (31 sets, daily range): BP systolic 81–110; BP diastolic 52–70; TEMP 95.2–97.7; O2SAT 95–100
[2023-05-13 05:03] LABS: HEMATOCRIT 23.4 % (36.0-47.0); HEMOGLOBIN 7.8 g/dl (12.0-15.5); MEAN CORPUSCULAR HEMOGLOBIN 31.1 pg (27.0-33.0); MEAN CORPUSCULAR HGB CONC 33.3 g/dl (32.0-36.5); MEAN CORPUSCULAR VOLUME 93.2 fl (80.0-96.0); PLATELET COUNT, AUTOMATED 125 10^3/uL (150-450); RED BLOOD COUNT 2.51 10^6/uL (4.00-5.40); WHITE BLOOD COUNT 9.6 10^3/uL (4.0-10.0)
[2023-05-13 05:09] LABS: BLOOD UREA NITROGEN 12 MG/DL (9-23); CALCIUM LEVEL 8.5 MG/DL (8.5-10.1); CARBON DIOXIDE LEVEL 25 MMOL/L (20-31); CHLORIDE LEVEL 114 MMOL/L (98-107); CREATININE FOR GFR 1.04 MG/DL (0.55-1.30); GLOMERULAR FILTRATION RATE > 60.0 (>51); GLUCOSE, FASTING 57 MG/DL (60-100); POTASSIUM SERUM 4.3 MMOL/L (3.5-5.1); SODIUM LEVEL 144 MMOL/L (136-145)
[2023-05-13] MEDS: VANCOMYCIN HCL 750 MG, VIAL MATE ADAPTER 1 EACH in D5W 250 ML IV SCH (05:18)
[2023-05-13] MEDS: PIPERACILLIN/TAZOBACTAM SOD 4.5 GM in D5W MINI-BAG PLUS 50 ML IV SCH ×4 (05:19→22:27)
[2023-05-13] MEDS: LEVOTHYROXINE 88MCG TABLET (0.088 MG) PO SCH (05:19)
[2023-05-13 05:33] LABS: EOSINOPHILS 1 % (0-3); LYMPHOCYTES 21 % (16-44); MONOCYTES 5 % (0-5); MYELOCYTES 2 % (0-0); NEUTROPHILS 71 % (28-66)
[2023-05-13 05:34] LABS: ANISOCYTOSIS 1+; PLATELET ESTIMATE DECREASED (NORMAL)
[2023-05-13] MEDS: IPRATROPIUM 0.5MG/ALBUTEROL 2.5MG INH SOL UD 3ML (DUONEB) NEB SCH ×4 (07:16→19:16)
[2023-05-13] MEDS: BACLOFEN 10 MG TAB JT SCH ×2 (08:55→20:22)
[2023-05-13] MEDS: ENOXAPARIN 40MG/0.4ML SYRINGE (J1650 PER 10MG) SC SCH (08:55)
[2023-05-13] MEDS: FOLIC ACID 1MG TAB JT SCH (08:55)
[2023-05-13] MEDS: guaiFENesin ER TABLET 600 MG TAB PO SCH ×2 (08:55→20:22)
[2023-05-13] MEDS: TOPIRAMATE (TopAMAX) 25 MG TAB JT SCH ×2 (08:55→20:22)
[2023-05-13] MEDS: FLUoxetine 20MG CAP PO SCH (08:55)
[2023-05-13] MEDS: risperiDONE 1 MG TAB JT SCH ×2 (08:55→20:22)
[2023-05-13] MEDS: SIMETHICONE 40MG/0.6ML DROPS 30ML JT SCH ×3 (08:58→20:25)
[2023-05-13] MEDS ORDERED: NS 1,000 ML IV ONE (13:05)
[2023-05-13] MEDS: MIDODRINE 5 MG TAB PO SCH ×2 (13:35→15:39)
[2023-05-13 14:03] LABS: C REACTIVE PROTEIN QUANTITATIV 29.4 MG/DL (<1.0)
[2023-05-13 14:16] LABS: PROCALCITONIN 0.24 ng/ml
[2023-05-13] MEDS: LORazepam 0.5 MG TAB PO SCH (15:39)
[2023-05-13] MEDS: MONTELUKAST 10 MG TAB JT SCH (20:23)
[2023-05-13] MEDS: IBUPROFEN 400MG TAB JT PRN (20:23)
[2023-05-14] MEDS: PIPERACILLIN/TAZOBACTAM SOD 4.5 GM in D5W MINI-BAG PLUS 50 ML IV SCH ×4 (04:11→23:10)
[2023-05-14] MEDS: LEVOTHYROXINE 88MCG TABLET (0.088 MG) PO SCH (05:35)
[2023-05-14 06:00] VITALS: BP 107/72; TEMP 97.3; O2SAT 92
[2023-05-14] MEDS ORDERED: HALOPERIDOL 5MG/ML 1ML VIAL IM ONE (07:00)
[2023-05-14] MEDS: IPRATROPIUM 0.5MG/ALBUTEROL 2.5MG INH SOL UD 3ML (DUONEB) NEB SCH ×4 (07:46→19:36)
[2023-05-14 08:04] LABS: HEMATOCRIT 23.4 % (36.0-47.0); HEMOGLOBIN 7.8 g/dl (12.0-15.5); MEAN CORPUSCULAR HEMOGLOBIN 31.7 pg (27.0-33.0); MEAN CORPUSCULAR HGB CONC 33.3 g/dl (32.0-36.5); MEAN CORPUSCULAR VOLUME 95.1 fl (80.0-96.0); PLATELET COUNT, AUTOMATED 129 10^3/uL (150-450); RED BLOOD COUNT 2.46 10^6/uL (4.00-5.40); WHITE BLOOD COUNT 9.2 10^3/uL (4.0-10.0)
[2023-05-14 08:35] LABS: BLOOD UREA NITROGEN 14 MG/DL (9-23); CALCIUM LEVEL 8.6 MG/DL (8.5-10.1); CARBON DIOXIDE LEVEL 24 MMOL/L (20-31); CHLORIDE LEVEL 112 MMOL/L (98-107); CREATININE FOR GFR 0.95 MG/DL (0.55-1.30); GLOMERULAR FILTRATION RATE > 60.0 (>51); GLUCOSE, FASTING 61 MG/DL (60-100); POTASSIUM SERUM 4.1 MMOL/L (3.5-5.1); SODIUM LEVEL 145 MMOL/L (136-145)
[2023-05-14 08:40] LABS: ATYPICAL LYMPH 14 % (0-5); LYMPHOCYTES 7 % (16-44); METAMYELOCYTES 1 % (0-0); MONOCYTES 6 % (0-5); NEUTROPHILS 70 % (28-66); PLATELET ESTIMATE DECREASED (NORMAL)
[2023-05-14 08:41] LABS: TOXIC GRANULATION 2+
[2023-05-14] MEDS: FOLIC ACID 1MG TAB JT SCH (09:55)
[2023-05-14] MEDS: FLUoxetine 20MG CAP PO SCH (09:55)
[2023-05-14] MEDS: BACLOFEN 10 MG TAB JT SCH (09:55)
[2023-05-14] MEDS: risperiDONE 1 MG TAB JT SCH (09:55)
[2023-05-14] MEDS: guaiFENesin ER TABLET 600 MG TAB PO SCH ×2 (09:55→20:06)
[2023-05-14] MEDS: MIDODRINE 5 MG TAB PO SCH ×3 (09:55→17:22)
[2023-05-14] MEDS: ENOXAPARIN 40MG/0.4ML SYRINGE (J1650 PER 10MG) SC SCH (09:55)
[2023-05-14] MEDS: TOPIRAMATE (TopAMAX) 25 MG TAB JT SCH ×2 (09:56→20:05)
[2023-05-14] MEDS: SIMETHICONE 40MG/0.6ML DROPS 30ML JT SCH ×3 (09:56→20:06)
[2023-05-14] MEDS ORDERED: VANCOMYCIN HCL 500 MG in D5W MINI-BAG PLUS 100 ML IV SCH (10:00)
[2023-05-14 14:00] VITALS: BP 117/76; TEMP 93; O2SAT 97
[2023-05-14 14:51] LABS: ABG BASE EXCESS -2.1 (-2.0-2.0); ABG O2 SATURATION 95.7 % (95.0-99.0); ABG PARTIAL PRESSURE O2 85.8 mmHg (75.0-100.0); ABG STANDARD HCO3 22.6 MMOL/L. (22.0-26.0); ABG TOTAL CO2 25.5 MMOL/L (22.0-29.0); ABG pH (ARTERIAL) 7.317 UNITS (7.350-7.450)
[2023-05-14 17:08] LABS: ABG BASE EXCESS -1.2 (-2.0-2.0); ABG O2 SATURATION 96.3 % (95.0-99.0); ABG PARTIAL PRESSURE CO2 49.5 mmHg (35.0-45.0); ABG PARTIAL PRESSURE O2 92.5 mmHg (75.0-100.0); ABG STANDARD HCO3 23.5 MMOL/L. (22.0-26.0); ABG TOTAL CO2 26.6 MMOL/L (22.0-29.0); ABG pH (ARTERIAL) 7.322 UNITS (7.350-7.450)
[2023-05-14 17:41] VITALS: BP 116/75
[2023-05-14] MEDS ORDERED: GLUCOSE 4GM CHEW TABLET PO PRN (18:25)
[2023-05-14] MEDS ORDERED: GLUCAGON INJ 1MG VIAL SC PRN (18:25)
[2023-05-14] MEDS ORDERED: DEXTROSE 50% 50ML SYRINGE IV PRN (18:25)
[2023-05-14] MEDS: D5W/0.45% SODIUM CHLORIDE 1,000 ML IV SCH (18:52)
[2023-05-14] MEDS: MONTELUKAST 10 MG TAB JT SCH (20:05)
[2023-05-14 20:33] VITALS: BP 115/74; TEMP 94.2; O2SAT 97
[2023-05-14 20:56] VITALS: BP 124/66; TEMP 93.9; O2SAT 98
[2023-05-14] MEDS ORDERED: HYDROCORTISONE 100MG/2ML VIAL IV ONE (22:50)
[2023-05-15 00:10] VITALS: BP 133/74; TEMP 94.8; O2SAT 99
[2023-05-15 04:00] VITALS: BP 120/60; TEMP 96.2; O2SAT 98
[2023-05-15] MEDS: PIPERACILLIN/TAZOBACTAM SOD 4.5 GM in D5W MINI-BAG PLUS 50 ML IV SCH ×2 (05:03→11:43)
[2023-05-15] MEDS: LEVOTHYROXINE 88MCG TABLET (0.088 MG) PO SCH (06:17)
[2023-05-15 06:40] LABS: BASO % 0.2 % (0.0-1.0); EOS % 0.1 % (0.0-3.0); HEMATOCRIT 23.8 % (36.0-47.0); HEMOGLOBIN 7.9 g/dl (12.0-15.5); LYMPH # 1.2 10^3/uL (1.5-5.0); LYMPH % 10.2 % (24.0-44.0); MEAN CORPUSCULAR HEMOGLOBIN 31.3 pg (27.0-33.0); MEAN CORPUSCULAR HGB CONC 33.2 g/dl (32.0-36.5); MEAN CORPUSCULAR VOLUME 94.4 fl (80.0-96.0); MONO # 0.3 10^3/uL (0.0-0.8); MONO % 2.5 % (2.0-8.0); NEUTROPHILS # 10.1 10^3/uL (1.5-8.5); NEUTROPHILS % 84.4 % (36.0-66.0); PLATELET COUNT, AUTOMATED 119 10^3/uL (150-450); RED BLOOD COUNT 2.52 10^6/uL (4.00-5.40)
[2023-05-15 07:02] LABS: BLOOD UREA NITROGEN 11 MG/DL (9-23); CALCIUM LEVEL 8.6 MG/DL (8.5-10.1); CARBON DIOXIDE LEVEL 27 MMOL/L (20-31); CHLORIDE LEVEL 111 MMOL/L (98-107); CREATININE FOR GFR 0.88 MG/DL (0.55-1.30); GLOMERULAR FILTRATION RATE > 60.0 (>51); GLUCOSE, FASTING 117 MG/DL (60-100); POTASSIUM SERUM 4.2 MMOL/L (3.5-5.1); SODIUM LEVEL 143 MMOL/L (136-145)
[2023-05-15 07:46] VITALS: BP 108/64; TEMP 96.5; O2SAT 97
[2023-05-15] MEDS: IPRATROPIUM 0.5MG/ALBUTEROL 2.5MG INH SOL UD 3ML (DUONEB) NEB SCH ×4 (07:49→20:59)
[2023-05-15] MEDS: FLUoxetine 20MG CAP JT SCH (09:00)
[2023-05-15] MEDS: TOPIRAMATE (TopAMAX) 25 MG TAB JT SCH ×3 (09:00→21:37)
[2023-05-15] MEDS: MIDODRINE 5 MG TAB JT SCH ×3 (10:02→16:38)
[2023-05-15] MEDS: FOLIC ACID 1MG TAB JT SCH (10:03)
[2023-05-15] MEDS: SIMETHICONE 40MG/0.6ML DROPS 30ML JT SCH ×4 (10:04→21:36)
[2023-05-15] MEDS: ENOXAPARIN 40MG/0.4ML SYRINGE (J1650 PER 10MG) SC SCH (10:05)
[2023-05-15] MEDS: D5W/0.45% SODIUM CHLORIDE 1,000 ML IV SCH (10:17)
[2023-05-15 11:31] VITALS: BP 105/61; TEMP 97.4; O2SAT 99
[2023-05-15 15:12] LABS: BODY FLUID CULTURE Not indicated. (.); LEGIONELLA ANTIGEN URINE Negative (Negative); ORGANISM ID Not indicated. (.); SPECIMEN SOURCE Urine (.); URINE STREP PNEUMONIAE ANTIGEN Negative (Negative)
[2023-05-15] MEDS: cefTRIAXone SOD 2 GM in D5W MINI-BAG PLUS 50 ML IV SCH (16:38)
[2023-05-15] MEDS: MONTELUKAST 10 MG TAB JT SCH (18:18)
[2023-05-15 20:05] VITALS: BP 111/60; TEMP 93.3; O2SAT 100
[2023-05-16] MEDS: D5W/0.45% SODIUM CHLORIDE 1,000 ML IV SCH (00:35)
[2023-05-16 03:50] VITALS: BP 127/74; TEMP 96.3; O2SAT 95
[2023-05-16] MEDS: LEVOTHYROXINE 88MCG TABLET (0.088 MG) JT SCH (06:00)
[2023-05-16 06:19] LABS: BASO % 0.1 % (0.0-1.0); EOS # 0.1 10^3/uL (0.0-0.5); EOS % 0.8 % (0.0-3.0); HEMATOCRIT 23.5 % (36.0-47.0); HEMOGLOBIN 7.8 g/dl (12.0-15.5); LYMPH # 1.5 10^3/uL (1.5-5.0); LYMPH % 15.1 % (24.0-44.0); MEAN CORPUSCULAR HEMOGLOBIN 31.5 pg (27.0-33.0); MEAN CORPUSCULAR HGB CONC 33.2 g/dl (32.0-36.5); MEAN CORPUSCULAR VOLUME 94.8 fl (80.0-96.0); MONO # 0.5 10^3/uL (0.0-0.8); MONO % 4.7 % (2.0-8.0); NEUTROPHILS # 7.8 10^3/uL (1.5-8.5); NEUTROPHILS % 76.9 % (36.0-66.0); PLATELET COUNT, AUTOMATED 144 10^3/uL (150-450); RED BLOOD COUNT 2.48 10^6/uL (4.00-5.40); WHITE BLOOD COUNT 10.1 10^3/uL (4.0-10.0)
[2023-05-16 06:48] LABS: BLOOD UREA NITROGEN 8 MG/DL (9-23); CALCIUM LEVEL 8.8 MG/DL (8.5-10.1); CARBON DIOXIDE LEVEL 27 MMOL/L (20-31); CHLORIDE LEVEL 113 MMOL/L (98-107); CREATININE FOR GFR 0.86 MG/DL (0.55-1.30); GLOMERULAR FILTRATION RATE > 60.0 (>51); GLUCOSE, FASTING 82 MG/DL (60-100); POTASSIUM SERUM 3.5 MMOL/L (3.5-5.1); SODIUM LEVEL 147 MMOL/L (136-145)
[2023-05-16] MEDS ORDERED: GLUCOSE 4GM CHEW TABLET JT PRN (07:55)
[2023-05-16 08:00] VITALS: BP 141/62; TEMP 98.7; O2SAT 96
[2023-05-16] MEDS: FOLIC ACID 1MG TAB JT SCH (08:15)
[2023-05-16] MEDS: FLUoxetine 20MG CAP JT SCH (08:15)
[2023-05-16] MEDS: MIDODRINE 5 MG TAB JT SCH ×3 (08:15→16:15)
[2023-05-16] MEDS: TOPIRAMATE (TopAMAX) 25 MG TAB JT SCH ×2 (08:16→23:05)
[2023-05-16] MEDS: D5W 1,000 ML IV SCH ×3 (08:16→20:27)
[2023-05-16] MEDS: ENOXAPARIN 40MG/0.4ML SYRINGE (J1650 PER 10MG) SC SCH (08:16)
[2023-05-16] MEDS: ACETAMINOPHEN TAB 650MG DOSE (2X325MG) JT PRN ×2 (08:29→23:04)
[2023-05-16] MEDS: IPRATROPIUM 0.5MG/ALBUTEROL 2.5MG INH SOL UD 3ML (DUONEB) NEB SCH ×4 (09:20→21:03)
[2023-05-16] MEDS: SIMETHICONE 40MG/0.6ML DROPS 30ML JT SCH ×3 (10:11→23:05)
[2023-05-16] MEDS: LORazepam 0.5 MG TAB GT SCH (10:11)
[2023-05-16] MEDS: risperiDONE 1MG/1ML SOLN ORAL SYRINGE PEG SCH ×2 (10:40→21:00)
[2023-05-16 12:39] VITALS: BP 102/56
[2023-05-16 14:47] LABS: BLOOD UREA NITROGEN 7 MG/DL (9-23); CALCIUM LEVEL 8.8 MG/DL (8.5-10.1); CARBON DIOXIDE LEVEL 26 MMOL/L (20-31); CHLORIDE LEVEL 111 MMOL/L (98-107); CREATININE FOR GFR 0.85 MG/DL (0.55-1.30); GLOMERULAR FILTRATION RATE > 60.0 (>51); GLUCOSE, FASTING 85 MG/DL (60-100); POTASSIUM SERUM 3.1 MMOL/L (3.5-5.1); SODIUM LEVEL 142 MMOL/L (136-145)
[2023-05-16 15:43] VITALS: BP 100/55; TEMP 97.1; O2SAT 98
[2023-05-16] MEDS: cefTRIAXone SOD 2 GM in D5W MINI-BAG PLUS 50 ML IV SCH (16:15)
[2023-05-16] MEDS: MONTELUKAST 10 MG TAB JT SCH (18:07)
[2023-05-16 20:52] LABS: BLOOD UREA NITROGEN 8 MG/DL (9-23); CALCIUM LEVEL 8.3 MG/DL (8.5-10.1); CARBON DIOXIDE LEVEL 28 MMOL/L (20-31); CHLORIDE LEVEL 113 MMOL/L (98-107); CREATININE FOR GFR 0.86 MG/DL (0.55-1.30); GLOMERULAR FILTRATION RATE > 60.0 (>51); GLUCOSE, FASTING 82 MG/DL (60-100); POTASSIUM SERUM 3.4 MMOL/L (3.5-5.1); SODIUM LEVEL 145 MMOL/L (136-145)
[2023-05-17] VITALS (11 sets, daily range): BP systolic 99–137; BP diastolic 52–85; TEMP 95.2–98.6; O2SAT 95–99
[2023-05-17] MEDS: LEVOTHYROXINE 88MCG TABLET (0.088 MG) JT SCH (06:16)
[2023-05-17 07:23] LABS: BASO % 0.2 % (0.0-1.0); EOS # 0.1 10^3/uL (0.0-0.5); EOS % 1.1 % (0.0-3.0); HEMATOCRIT 22.4 % (36.0-47.0); HEMOGLOBIN 7.1 g/dl (12.0-15.5); LYMPH # 2.2 10^3/uL (1.5-5.0); LYMPH % 33.5 % (24.0-44.0); MEAN CORPUSCULAR HEMOGLOBIN 30.1 pg (27.0-33.0); MEAN CORPUSCULAR HGB CONC 31.7 g/dl (32.0-36.5); MEAN CORPUSCULAR VOLUME 94.9 fl (80.0-96.0); MONO # 0.5 10^3/uL (0.0-0.8); MONO % 6.9 % (2.0-8.0); NEUTROPHILS # 3.7 10^3/uL (1.5-8.5); NEUTROPHILS % 56.8 % (36.0-66.0); PLATELET COUNT, AUTOMATED 142 10^3/uL (150-450); RED BLOOD COUNT 2.36 10^6/uL (4.00-5.40); WHITE BLOOD COUNT 6.6 10^3/uL (4.0-10.0)
[2023-05-17] MEDS: IPRATROPIUM 0.5MG/ALBUTEROL 2.5MG INH SOL UD 3ML (DUONEB) NEB SCH ×4 (07:42→20:36)
[2023-05-17 07:45] LABS: BLOOD UREA NITROGEN 6 MG/DL (9-23); CALCIUM LEVEL 8.8 MG/DL (8.5-10.1); CARBON DIOXIDE LEVEL 27 MMOL/L (20-31); CHLORIDE LEVEL 109 MMOL/L (98-107); CREATININE FOR GFR 0.79 MG/DL (0.55-1.30); GLOMERULAR FILTRATION RATE > 60.0 (>51); GLUCOSE, FASTING 73 MG/DL (60-100); POTASSIUM SERUM 3.3 MMOL/L (3.5-5.1); SODIUM LEVEL 143 MMOL/L (136-145)
[2023-05-17] MEDS: ENOXAPARIN 40MG/0.4ML SYRINGE (J1650 PER 10MG) SC SCH (09:15)
[2023-05-17] MEDS: FLUoxetine 20MG CAP JT SCH (09:16)
[2023-05-17] MEDS: LORazepam 0.5 MG TAB GT SCH (09:16)
[2023-05-17] MEDS: TOPIRAMATE (TopAMAX) 25 MG TAB JT SCH ×2 (09:16→21:40)
[2023-05-17] MEDS: FOLIC ACID 1MG TAB JT SCH (09:16)
[2023-05-17] MEDS: risperiDONE 1MG/1ML SOLN ORAL SYRINGE PEG SCH ×2 (09:16→21:39)
[2023-05-17] MEDS: MIDODRINE 5 MG TAB JT SCH ×3 (09:17→16:48)
[2023-05-17] MEDS: SIMETHICONE 40MG/0.6ML DROPS 30ML JT SCH ×3 (09:17→21:40)
[2023-05-17] MEDS ORDERED: LIDOCAINE 1% MDV 20ML VIAL As Ordered ONE (14:21)
[2023-05-17] MEDS ORDERED: SODIUM CHLORIDE 0.9% INJ 10 ML SYR IV PRN (16:25)
[2023-05-17] MEDS: cefTRIAXone SOD 2 GM in D5W MINI-BAG PLUS 50 ML IV SCH (16:48)
[2023-05-17 18:23] LABS: HEMATOCRIT 24.7 % (36.0-47.0)
[2023-05-17] MEDS: SODIUM CHLORIDE 0.9% INJ 10 ML SYR IV SCH (21:39)
[2023-05-17] MEDS: MONTELUKAST 10 MG TAB JT SCH (21:40)
[2023-05-18 03:27] VITALS: BP 142/70; TEMP 96.1; O2SAT 98
[2023-05-18] MEDS: LEVOTHYROXINE 88MCG TABLET (0.088 MG) JT SCH (06:27)
[2023-05-18] MEDS: SODIUM CHLORIDE 0.9% INJ 10 ML SYR IV SCH ×2 (06:28→19:52)
[2023-05-18 07:29] VITALS: BP 133/73; TEMP 97.2; O2SAT 94
[2023-05-18] MEDS: MIDODRINE 5 MG TAB JT SCH (08:00)
[2023-05-18] MEDS: IPRATROPIUM 0.5MG/ALBUTEROL 2.5MG INH SOL UD 3ML (DUONEB) NEB SCH ×4 (08:01→20:28)
[2023-05-18 10:22] LABS: THYROID STIMULATING HORMONE 13.108 uIU/ML (0.55-4.78); THYROXINE (T4) 10.9 UG/DL (4.5-10.9)
[2023-05-18 10:23] LABS: FREE THYROXINE INDEX 2.2 % (1.3-4.8); T UPTAKE 20.2 % (22.5-37.0)
[2023-05-18] MEDS: risperiDONE 1MG/1ML SOLN ORAL SYRINGE PEG SCH ×2 (10:38→20:26)
[2023-05-18] MEDS: SIMETHICONE 40MG/0.6ML DROPS 30ML JT SCH ×3 (10:38→20:22)
[2023-05-18] MEDS: TOPIRAMATE (TopAMAX) 25 MG TAB JT SCH ×2 (10:39→20:26)
[2023-05-18] MEDS: ENOXAPARIN 40MG/0.4ML SYRINGE (J1650 PER 10MG) SC SCH (10:39)
[2023-05-18] MEDS: FOLIC ACID 1MG TAB JT SCH (10:39)
[2023-05-18] MEDS: FLUoxetine 20MG CAP JT SCH (10:39)
[2023-05-18] MEDS: LORazepam 0.5 MG TAB GT SCH (10:40)
[2023-05-18] MEDS: MONTELUKAST 10 MG TAB JT SCH (18:25)
[2023-05-18] MEDS: cefTRIAXone SOD 2 GM in D5W MINI-BAG PLUS 50 ML IV SCH (18:26)
[2023-05-19] MEDS ORDERED: diphenhydrAMINE 25MG CAP PO ONE (01:10)
[2023-05-19 01:46] LABS: HEMATOCRIT 27.6 % (36.0-47.0); HEMOGLOBIN 9.4 g/dl (12.0-15.5)
[2023-05-19 07:26] VITALS: BP 126/84; TEMP 97.2; O2SAT 96
[2023-05-19] MEDS: SODIUM CHLORIDE 0.9% INJ 10 ML SYR IV SCH ×2 (07:28→19:11)
[2023-05-19] MEDS: IPRATROPIUM 0.5MG/ALBUTEROL 2.5MG INH SOL UD 3ML (DUONEB) NEB SCH ×4 (07:47→20:00)
[2023-05-19] MEDS ORDERED: SODIUM CHLORIDE NASAL 0.65% SPRAY BTL (OCEAN) PRN (07:55)
[2023-05-19] MEDS ORDERED: LEVOTHYROXINE 100MCG (0.1MG) 5ML SDV PF (SOLUTION FORM) IV SCH (09:00)
[2023-05-19] MEDS: SIMETHICONE 40MG/0.6ML DROPS 30ML JT SCH ×3 (09:48→20:40)
[2023-05-19] MEDS: ENOXAPARIN 40MG/0.4ML SYRINGE (J1650 PER 10MG) SC SCH (09:48)
[2023-05-19] MEDS: TOPIRAMATE (TopAMAX) 25 MG TAB JT SCH ×2 (09:48→20:40)
[2023-05-19] MEDS: FLUoxetine 20MG CAP JT SCH (09:48)
[2023-05-19] MEDS: SODIUM CHLORIDE 0.9% NASAL GEL 15GM (AYR) SCH ×2 (09:48→20:40)
[2023-05-19] MEDS: LEVOTHYROXINE 100MCG TABLET (0.1MG) JT SCH (09:49)
[2023-05-19] MEDS: LORazepam 0.5 MG TAB GT SCH (09:49)
[2023-05-19] MEDS: FOLIC ACID 1MG TAB JT SCH (09:49)
[2023-05-19] MEDS: risperiDONE 1MG/1ML SOLN ORAL SYRINGE PEG SCH ×2 (09:49→20:39)
[2023-05-19] MEDS: cefTRIAXone SOD 2 GM in D5W MINI-BAG PLUS 50 ML IV SCH (18:20)
[2023-05-19 20:30] VITALS: BP 137/89; TEMP 96.4; O2SAT 100
[2023-05-19] MEDS: MONTELUKAST 10 MG TAB JT SCH (20:40)
[2023-05-20] MEDS: SODIUM CHLORIDE 0.9% INJ 10 ML SYR IV SCH ×2 (06:23→18:42)
[2023-05-20] MEDS: LEVOTHYROXINE 100MCG TABLET (0.1MG) JT SCH (06:23)
[2023-05-20] MEDS: IPRATROPIUM 0.5MG/ALBUTEROL 2.5MG INH SOL UD 3ML (DUONEB) NEB SCH ×4 (07:28→20:19)
[2023-05-20 07:37] VITALS: BP 131/84; TEMP 97; O2SAT 98
[2023-05-20] MEDS: SIMETHICONE 40MG/0.6ML DROPS 30ML JT SCH ×3 (09:24→21:28)
[2023-05-20] MEDS: SODIUM CHLORIDE 0.9% NASAL GEL 15GM (AYR) SCH ×2 (09:24→21:28)
[2023-05-20] MEDS: FOLIC ACID 1MG TAB JT SCH (09:25)
[2023-05-20] MEDS: LORazepam 0.5 MG TAB GT SCH (09:25)
[2023-05-20] MEDS: TOPIRAMATE (TopAMAX) 25 MG TAB JT SCH ×2 (09:25→21:27)
[2023-05-20] MEDS: FLUoxetine 20MG CAP JT SCH (09:26)
[2023-05-20] MEDS: ENOXAPARIN 40MG/0.4ML SYRINGE (J1650 PER 10MG) SC SCH (09:26)
[2023-05-20] MEDS: risperiDONE 1MG/1ML SOLN ORAL SYRINGE PEG SCH ×2 (09:28→21:44)
[2023-05-20] MEDS: cefTRIAXone SOD 2 GM in D5W MINI-BAG PLUS 50 ML IV SCH (16:43)
[2023-05-20] MEDS: MONTELUKAST 10 MG TAB JT SCH (18:43)
[2023-05-20 20:00] VITALS: BP 139/88; TEMP 96.3; O2SAT 99
[2023-05-21] MEDS: LEVOTHYROXINE 100MCG TABLET (0.1MG) JT SCH (06:34)
[2023-05-21] MEDS: SODIUM CHLORIDE 0.9% INJ 10 ML SYR IV SCH ×2 (06:35→17:12)
[2023-05-21] MEDS: IPRATROPIUM 0.5MG/ALBUTEROL 2.5MG INH SOL UD 3ML (DUONEB) NEB SCH ×4 (07:15→19:49)
[2023-05-21 07:51] LABS: HEMATOCRIT 29.9 % (36.0-47.0); HEMOGLOBIN 9.7 g/dl (12.0-15.5); MEAN CORPUSCULAR HEMOGLOBIN 30.1 pg (27.0-33.0); MEAN CORPUSCULAR HGB CONC 32.4 g/dl (32.0-36.5); MEAN CORPUSCULAR VOLUME 92.9 fl (80.0-96.0); PLATELET COUNT, AUTOMATED 361 10^3/uL (150-450); RED BLOOD COUNT 3.22 10^6/uL (4.00-5.40); WHITE BLOOD COUNT 4.8 10^3/uL (4.0-10.0)
[2023-05-21 08:16] VITALS: BP 117/64
[2023-05-21 08:24] LABS: BLOOD UREA NITROGEN 7 MG/DL (9-23); CALCIUM LEVEL 9.3 MG/DL (8.5-10.1); CARBON DIOXIDE LEVEL 29 MMOL/L (20-31); CHLORIDE LEVEL 109 MMOL/L (98-107); CREATININE FOR GFR 0.87 MG/DL (0.55-1.30); GLOMERULAR FILTRATION RATE > 60.0 (>51); GLUCOSE, FASTING 66 MG/DL (60-100); POTASSIUM SERUM 4.1 MMOL/L (3.5-5.1); SODIUM LEVEL 144 MMOL/L (136-145)
[2023-05-21 08:25] VITALS: TEMP 97.6; O2SAT 95
[2023-05-21] MEDS: ENOXAPARIN 40MG/0.4ML SYRINGE (J1650 PER 10MG) SC SCH (09:48)
[2023-05-21] MEDS: LORazepam 0.5 MG TAB GT SCH (09:49)
[2023-05-21] MEDS: FLUoxetine 20MG CAP JT SCH (09:49)
[2023-05-21] MEDS: FOLIC ACID 1MG TAB JT SCH (09:49)
[2023-05-21] MEDS: SIMETHICONE 40MG/0.6ML DROPS 30ML JT SCH ×3 (09:50→21:28)
[2023-05-21] MEDS: SODIUM CHLORIDE 0.9% NASAL GEL 15GM (AYR) SCH ×2 (09:50→21:28)
[2023-05-21] MEDS: TOPIRAMATE (TopAMAX) 25 MG TAB JT SCH ×2 (09:50→21:28)
[2023-05-21] MEDS: risperiDONE 1MG/1ML SOLN ORAL SYRINGE PEG SCH ×2 (11:44→21:28)
[2023-05-21] MEDS: cefTRIAXone SOD 2 GM in D5W MINI-BAG PLUS 50 ML IV SCH (16:20)
[2023-05-21] MEDS: MONTELUKAST 10 MG TAB JT SCH (18:31)
[2023-05-21 19:53] VITALS: BP 115/78; TEMP 97.9; O2SAT 100
[2023-05-22 03:51] VITALS: BP 122/68; TEMP 98.6; O2SAT 100
[2023-05-22] MEDS: SODIUM CHLORIDE 0.9% INJ 10 ML SYR IV SCH ×2 (06:00→18:36)
[2023-05-22] MEDS: LEVOTHYROXINE 100MCG TABLET (0.1MG) JT SCH (06:02)
[2023-05-22 07:27] VITALS: BP 145/75; TEMP 98.4; O2SAT 99
[2023-05-22] MEDS: IPRATROPIUM 0.5MG/ALBUTEROL 2.5MG INH SOL UD 3ML (DUONEB) NEB SCH ×4 (08:00→20:07)
[2023-05-22] MEDS: TOPIRAMATE (TopAMAX) 25 MG TAB JT SCH ×2 (08:30→20:20)
[2023-05-22] MEDS: ENOXAPARIN 40MG/0.4ML SYRINGE (J1650 PER 10MG) SC SCH (08:30)
[2023-05-22] MEDS: risperiDONE 1MG/1ML SOLN ORAL SYRINGE PEG SCH ×2 (08:30→20:22)
[2023-05-22] MEDS: FOLIC ACID 1MG TAB JT SCH (08:31)
[2023-05-22] MEDS: LORazepam 0.5 MG TAB GT SCH (08:31)
[2023-05-22] MEDS: FLUoxetine 20MG CAP JT SCH (08:31)
[2023-05-22] MEDS: SODIUM CHLORIDE 0.9% NASAL GEL 15GM (AYR) SCH ×2 (08:32→20:21)
[2023-05-22] MEDS: SIMETHICONE 40MG/0.6ML DROPS 30ML JT SCH ×3 (08:32→20:22)
[2023-05-22 15:48] LABS: FREE T4 0.99 NG/DL (0.89-1.76); THYROID STIMULATING HORMONE 9.521 uIU/ML (0.55-4.78)
[2023-05-22] MEDS: cefTRIAXone SOD 2 GM in D5W MINI-BAG PLUS 50 ML IV SCH (18:35)
[2023-05-22 19:52] VITALS: BP 115/76; TEMP 98; O2SAT 97
[2023-05-22] MEDS ORDERED: MONTELUKAST 10 MG TAB JT SCH (21:00)
[2023-05-23] MEDS: SODIUM CHLORIDE 0.9% INJ 10 ML SYR IV SCH (05:48)
[2023-05-23] MEDS: LEVOTHYROXINE 100MCG TABLET (0.1MG) JT SCH (05:49)
[2023-05-23] MEDS: IPRATROPIUM 0.5MG/ALBUTEROL 2.5MG INH SOL UD 3ML (DUONEB) NEB SCH ×2 (07:28→10:45)
[2023-05-23 08:06] VITALS: BP 119/80; TEMP 97.9; O2SAT 94
[2023-05-23] MEDS: risperiDONE 1MG/1ML SOLN ORAL SYRINGE PEG SCH (09:52)
[2023-05-23] MEDS: ENOXAPARIN 40MG/0.4ML SYRINGE (J1650 PER 10MG) SC SCH (09:52)
[2023-05-23] MEDS: TOPIRAMATE (TopAMAX) 25 MG TAB JT SCH (09:53)
[2023-05-23] MEDS: SODIUM CHLORIDE 0.9% NASAL GEL 15GM (AYR) SCH (09:53)
[2023-05-23] MEDS: FLUoxetine 20MG CAP JT SCH (09:53)
[2023-05-23] MEDS: FOLIC ACID 1MG TAB JT SCH (09:53)
[2023-05-23] MEDS: SIMETHICONE 40MG/0.6ML DROPS 30ML JT SCH (09:54)
[2023-05-23] MEDS ORDERED: CEFD1CAP9 PO (10:43)
[2023-05-23] MEDS: cefTRIAXone SOD 2 GM in D5W MINI-BAG PLUS 50 ML IV SCH (10:55)
[2023-05-23] MEDS ORDERED: LEVO100T5 JT (11:32)
[2023-05-23] MEDS ORDERED: FLOM0.4C39 PO (11:45)
[2023-05-23] MEDS ORDERED: NS 1,000 ML IV ONE (11:45)
[2023-05-23] MEDS ORDERED: TAMSULOSIN 0.4 MG CAP PO ONE (11:45)
[2023-05-23] MEDS ORDERED: LORazepam 0.5 MG TAB GT SCH (21:00)
== END 2023-05-23 15:32 | disposition home or self-care (01) | DRG 871 ==
LOC: M ED 13:03 → EDBD 13:03 → M ED INP 17:38 → INTOOBSV 17:38 → M ICU 05-11 01:24 → OBSVTOIN 05-11 14:42 → M MSPAV 05-13 22:32 → M PCU 05-14 20:45
PROVIDERS: ADMIT General Practice; ATTEND General Practice
PROC: 02HV33Z Insertion of Infusion Device into Superior Vena Cava, Percutaneous Approach (ICD-10-PCS; 2023-05-17)
PROC: 30233N1 Transfusion of Nonautologous Red Blood Cells into Peripheral Vein, Percutaneous Approach (ICD-10-PCS; principal; 2023-05-17 14:28)
DX: A41.89 Other specified sepsis (principal); J15.69 Pneumonia due to other Gram-negative bacteria; G93.41 Metabolic encephalopathy; R65.21 Severe sepsis with septic shock; J69.0 Pneumonitis due to inhalation of food and vomit; E87.21 Acute metabolic acidosis; E87.1 Hypo-osmolality and hyponatremia; N39.0 Urinary tract infection, site not specified; E87.5 Hyperkalemia; E83.42 Hypomagnesemia; R13.10 Dysphagia, unspecified; D64.9 Anemia, unspecified; I95.9 Hypotension, unspecified; E28.2 Polycystic ovarian syndrome; R74.01 Elevation of levels of liver transaminase levels; R68.0 Hypothermia, not associated with low environmental temperature; E63.9 Nutritional deficiency, unspecified; E87.6 Hypokalemia; E03.9 Hypothyroidism, unspecified; F32.A Depression, unspecified; F41.9 Anxiety disorder, unspecified; K21.9 Gastro-esophageal reflux disease without esophagitis; H26.9 Unspecified cataract; I44.0 Atrioventricular block, first degree; R91.8 Other nonspecific abnormal finding of lung field; Z79.890 Hormone replacement therapy; Z79.899 Other long term (current) drug therapy; Z20.822 Contact with and (suspected) exposure to COVID-19; Z86.16 Personal history of COVID-19; Z93.2 Ileostomy status

== ENCOUNTER → 2023-05-30 | Outpatient (CLI) | payer MEDICARE, MEDICAID ==
[~2023-05-30] MED LIST changes: +ACET-907 PO; +ATIV1TAB10 PO; +FLOM0.4C39 PO; +KALEPOW JT; +LEVO100T5 JT
[2023-05-30 17:04] LABS: BASO % 0.6 % (0.0-1.0); EOS # 0.1 10^3/uL (0.0-0.5); EOS % 1.6 % (0.0-3.0); HEMATOCRIT 36.6 % (36.0-47.0); HEMOGLOBIN 10.8 g/dl (12.0-15.5); LYMPH # 1.4 10^3/uL (1.5-5.0); LYMPH % 27.7 % (24.0-44.0); MEAN CORPUSCULAR HEMOGLOBIN 29.9 pg (27.0-33.0); MEAN CORPUSCULAR HGB CONC 29.5 g/dl (32.0-36.5); MEAN CORPUSCULAR VOLUME 101.4 fl (80.0-96.0); MONO # 0.5 10^3/uL (0.0-0.8); MONO % 9.2 % (2.0-8.0); NEUTROPHILS # 3.1 10^3/uL (1.5-8.5); NEUTROPHILS % 60.3 % (36.0-66.0); PLATELET COUNT, AUTOMATED 458 10^3/uL (150-450); RED BLOOD COUNT 3.61 10^6/uL (4.00-5.40); WHITE BLOOD COUNT 5.1 10^3/uL (4.0-10.0)
[2023-05-30 17:28] LABS: PROLACTIN 43.49 NG/ML
[2023-05-30 17:39] LABS: HEMOGLOBIN A1c 5.4 % (4.0-6.0)
[2023-05-30 18:20] LABS: ALBUMIN 3.2 G/DL (3.2-5.2); ALKALINE PHOSPHATASE 251 U/L (46-116); ALT/SGPT 73 U/L (7.0-40); AST/SGOT 54 U/L (<34); BILIRUBIN,TOTAL < 0.2 MG/DL (0.3-1.2); BLOOD UREA NITROGEN 27 MG/DL (9-23); CALCIUM LEVEL 10.5 MG/DL (8.5-10.1); CARBON DIOXIDE LEVEL 26 MMOL/L (20-31); CHLORIDE LEVEL 108 MMOL/L (98-107); CHOLESTEROL LEVEL 274 MG/DL (<200); CHOLESTEROL RISK RATIO 3.86 (<5); CREATININE FOR GFR 0.68 MG/DL (0.55-1.30); GLOMERULAR FILTRATION RATE > 60.0 (>51); GLUCOSE, FASTING 83 MG/DL (60-100); HDL CHOLESTEROL 70.9 MG/DL (>40); LDL CHOLESTEROL 184.7 MG/DL (<100); NON-HDL-C 203.1 MG/DL; POTASSIUM SERUM 5.5 MMOL/L (3.5-5.1); SODIUM LEVEL 137 MMOL/L (136-145); TOTAL PROTEIN 7.9 G/DL (5.7-8.2); TRIGLYCERIDES LEVEL 92 MG/DL (<150)
== END ==
LOC: M WUC 13:18
PROVIDERS: ATTEND Physician Assistant
DX: E87.5 Hyperkalemia (principal); Z79.899 Other long term (current) drug therapy

== ENCOUNTER → 2023-05-30 | Outpatient (CLI) | payer MEDICARE, MEDICAID | LOC: M WUC 13:19 | PROVIDERS: ATTEND Registered Nurse | DX: E87.5 Hyperkalemia (principal) ==

== ENCOUNTER → 2023-06-07 | Outpatient (REF) | payer MEDICARE, MEDICAID ==
[2023-06-07 16:47] LABS: APPEARANCE, URINE CLEAR (CLEAR); BACTERIA, URINE AUTO NEGATIVE (NEGATIVE); BILIRUBIN, URINE AUTO NEGATIVE (NEGATIVE); BLOOD, URINE BLOOD NEGATIVE (NEGATIVE); COLOR, URINE YELLOW (YELLOW); GLUCOSE, URINE (UA) AUTO NEGATIVE (NEGATIVE); KETONE, URINE AUTO NEGATIVE (NEGATIVE); LEUKOCYTE ESTERASE, URINE AUTO NEGATIVE (NEGATIVE); NITRITE, URINE AUTO NEGATIVE (NEGATIVE); PROTEIN, URINE AUTO NEGATIVE (NEGATIVE); RBC, URINE AUTO 1 /HPF (0-3); SPECIFIC GRAVITY URINE AUTO 1.011 (1.002-1.035); SQUAMOUS EPITHELIAL CELL UR AU 1 /HPF (0-6); UROBILINOGEN, URINE AUTO 0.2 mg/dL (0.0-2.0); WBC, URINE AUTO 2 /HPF (0-3)
== END ==
LOC: M LAB REF 16:18
PROVIDERS: ATTEND Registered Nurse
DX: B37.31 Acute candidiasis of vulva and vagina (principal); Z79.899 Other long term (current) drug therapy

== ENCOUNTER → 2023-06-12 | Outpatient (CLI) | payer MEDICARE, MEDICAID ==
[~2023-06-12] MED LIST changes: +ISOVUE-370 76% 100ML VIAL As Ordered ONE; -MIRA1POW3 JT; +MIRA33506 JT; -RISP-7 PO; +RISP0.5T82 PO
== END ==
LOC: M RAD 13:11
PROVIDERS: ATTEND Registered Nurse
DX: R91.8 Other nonspecific abnormal finding of lung field (principal)
CPT/HCPCS: 71260; Q9967

== ENCOUNTER → 2023-06-13 | Outpatient (CLI) | payer MEDICARE, MEDICAID ==
[~2023-06-13] MED LIST changes: -ISOVUE-370 76% 100ML VIAL As Ordered ONE
[2023-06-13 16:20] LABS: HEMATOCRIT 33.2 % (36.0-47.0); HEMOGLOBIN 10.6 g/dl (12.0-15.5); MEAN CORPUSCULAR HEMOGLOBIN 30.5 pg (27.0-33.0); MEAN CORPUSCULAR HGB CONC 31.9 g/dl (32.0-36.5); MEAN CORPUSCULAR VOLUME 95.7 fl (80.0-96.0); PLATELET COUNT, AUTOMATED 164 10^3/uL (150-450); RED BLOOD COUNT 3.47 10^6/uL (4.00-5.40); WHITE BLOOD COUNT 8.3 10^3/uL (4.0-10.0)
[2023-06-13 16:47] LABS: FREE T3 3.9 PG/ML (2.3-4.2); FREE T4 1.11 NG/DL (0.89-1.76); THYROID STIMULATING HORMONE 0.061 uIU/ML (0.55-4.78)
== END ==
LOC: M WUC 13:40
PROVIDERS: ATTEND Registered Nurse
DX: B37.7 Candidal sepsis (principal); R53.83 Other fatigue

== ENCOUNTER → 2023-06-28 | Outpatient (REF) | payer MEDICARE, MEDICAID ==
[2023-06-28 13:26] LABS: APPEARANCE, URINE HAZY (CLEAR); BACTERIA, URINE AUTO NEGATIVE (NEGATIVE); BILIRUBIN, URINE AUTO NEGATIVE (NEGATIVE); BLOOD, URINE BLOOD NEGATIVE (NEGATIVE); COLOR, URINE YELLOW (YELLOW); GLUCOSE, URINE (UA) AUTO NEGATIVE (NEGATIVE); KETONE, URINE AUTO NEGATIVE (NEGATIVE); LEUKOCYTE ESTERASE, URINE AUTO NEGATIVE (NEGATIVE); NITRITE, URINE AUTO NEGATIVE (NEGATIVE); PROTEIN, URINE AUTO NEGATIVE (NEGATIVE); RBC, URINE AUTO 1 /HPF (0-3); SPECIFIC GRAVITY URINE AUTO 1.015 (1.002-1.035); SQUAMOUS EPITHELIAL CELL UR AU 5 /HPF (0-6); UROBILINOGEN, URINE AUTO 0.2 mg/dL (0.0-2.0); WBC, URINE AUTO 2 /HPF (0-3)
== END ==
LOC: M SMT 12:26
PROVIDERS: ATTEND Nurse Practitioner Family
DX: Z87.440 Personal history of urinary (tract) infections (principal); Z79.899 Other long term (current) drug therapy

== ENCOUNTER → 2023-06-29 | Outpatient (CLI) | payer MEDICARE, MEDICAID ==
[~2023-06-29] MED LIST changes: +ATIV1TAB10 JT; -ATIV1TAB10 PO; +ENSU-12 PO; +ENSULIQ51 PO; +MOM30SS2 PO; +NEOM28.3 TOP; -NEOM28.3 TP; +ONDA-83 PO; +SIME40DR31 PO; +SODI15SS PO
[2023-06-29 10:16] LABS: HEMOGLOBIN 9.9 g/dl (12.0-15.5); MEAN CORPUSCULAR HEMOGLOBIN 30.1 pg (27.0-33.0); MEAN CORPUSCULAR HGB CONC 31.9 g/dl (32.0-36.5); MEAN CORPUSCULAR VOLUME 94.2 fl (80.0-96.0); PLATELET COUNT, AUTOMATED 101 10^3/uL (150-450); RED BLOOD COUNT 3.29 10^6/uL (4.00-5.40); WHITE BLOOD COUNT 3.7 10^3/uL (4.0-10.0)
[2023-06-29 10:30] LABS: POTASSIUM SERUM 4.8 MMOL/L (3.5-5.1)
[2023-06-29 10:39] LABS: THYROID STIMULATING HORMONE 0.06 uIU/ML (0.55-4.78)
[2023-06-29 10:41] LABS: FREE T4 1.14 NG/DL (0.89-1.76)
[2023-06-29 10:43] LABS: FREE T3 3.8 PG/ML (2.3-4.2)
== END ==
LOC: M WUC 08:40
PROVIDERS: ATTEND Registered Nurse
DX: E87.5 Hyperkalemia (principal); B37.7 Candidal sepsis; R53.83 Other fatigue

== ENCOUNTER 2023-07-10 14:58 | Inpatient (IN) | payer MEDICARE, MEDICAID ==
[~2023-07-10] VITALS: Ht 165.1 cm; Wt 55.1 kg
[~2023-07-10 14:58] MED LIST changes: -ENSU-12 PO; -ENSULIQ51 PO; -MOM30SS2 PO; -SODI15SS PO
[2023-07-10] MEDS: NS 1,640 ML in IV 1 EA IV ONE (15:25)
[2023-07-10] MEDS: PIPERACILLIN/TAZOBACTAM SOD 4.5 GM in D5W MINI-BAG PLUS 50 ML IV ONE (16:12)
[2023-07-10 16:14] LABS: BASO % 0.1 % (0.0-1.0); EOS % 0.1 % (0.0-3.0); HEMATOCRIT 28.4 % (36.0-47.0); HEMOGLOBIN 9.1 g/dl (12.0-15.5); LYMPH % 7.1 % (24.0-44.0); MEAN CORPUSCULAR HEMOGLOBIN 30.5 pg (27.0-33.0); MEAN CORPUSCULAR VOLUME 95.3 fl (80.0-96.0); MONO % 7.1 % (2.0-8.0); NEUTROPHILS # 12.1 10^3/uL (1.5-8.5); NEUTROPHILS % 85.2 % (36.0-66.0); PLATELET COUNT, AUTOMATED 145 10^3/uL (150-450); RED BLOOD COUNT 2.98 10^6/uL (4.00-5.40); WHITE BLOOD COUNT 14.2 10^3/uL (4.0-10.0)
[2023-07-10 16:24] LABS: APPEARANCE, URINE HAZY (CLEAR); BACTERIA, URINE AUTO 3+ (NEGATIVE); BILIRUBIN, URINE AUTO NEGATIVE (NEGATIVE); BLOOD, URINE BLOOD NEGATIVE (NEGATIVE); COLOR, URINE YELLOW (YELLOW); GLUCOSE, URINE (UA) AUTO NEGATIVE (NEGATIVE); KETONE, URINE AUTO NEGATIVE (NEGATIVE); LEUKOCYTE ESTERASE, URINE AUTO TRACE (NEGATIVE); MUCUS, URINE SMALL (NEGATIVE); NITRITE, URINE AUTO NEGATIVE (NEGATIVE); PROTEIN, URINE AUTO NEGATIVE (NEGATIVE); RBC, URINE AUTO 1 /HPF (0-3); SPECIFIC GRAVITY URINE AUTO 1.016 (1.002-1.035); SQUAMOUS EPITHELIAL CELL UR AU 0 /HPF (0-6); UROBILINOGEN, URINE AUTO 0.2 mg/dL (0.0-2.0); WBC, URINE AUTO 7 /HPF (0-3)
[2023-07-10 16:28] LABS: AMYLASE 233 U/L (30-118)
[2023-07-10 16:31] LABS: INR 1.06; PARTIAL THROMBOPLASTIN TIME 38.6 SECONDS (24.8-34.2); PROTHROMBIN TIME 13.5 SECONDS (12.5-14.5)
[2023-07-10 16:35] LABS: ALBUMIN 2.7 G/DL (3.2-5.2); ALKALINE PHOSPHATASE 516 U/L (46-116); ALT/SGPT 250 U/L (7.0-40); AST/SGOT 108 U/L (<34); BILIRUBIN,DIRECT < 0.1 MG/DL (<0.4); BLOOD UREA NITROGEN 21 MG/DL (9-23); CALCIUM LEVEL 8.8 MG/DL (8.5-10.1); CARBON DIOXIDE LEVEL 26 MMOL/L (20-31); CHLORIDE LEVEL 110 MMOL/L (98-107); CREATININE FOR GFR 0.86 MG/DL (0.55-1.30); GLOMERULAR FILTRATION RATE > 60.0 (>51); GLUCOSE, FASTING 85 MG/DL (60-100); POTASSIUM SERUM 5.7 MMOL/L (3.5-5.1); SODIUM LEVEL 139 MMOL/L (136-145); TOTAL PROTEIN 6.7 G/DL (5.7-8.2)
[2023-07-10 16:45] LABS: ABG BASE EXCESS -1.9 (-2.0-2.0); ABG HCO3 23.7 MMOL/L (22.0-26.0); ABG O2 SATURATION 93.7 % (95.0-99.0); ABG PARTIAL PRESSURE CO2 43.9 mmHg (35.0-45.0); ABG PARTIAL PRESSURE O2 70.2 mmHg (75.0-100.0); ABG STANDARD HCO3 22.8 MMOL/L. (22.0-26.0)
[2023-07-10 16:49] LABS: BILIRUBIN,TOTAL < 0.2 MG/DL (0.3-1.2)
[2023-07-10] MEDS: VANCOMYCIN HCL 1,000 MG, VIAL MATE ADAPTER 1 EACH in NS 250 ML IV ONE (17:00)
[2023-07-10] MEDS: NS 1,000 ML IV ONE (17:21)
[2023-07-10] MEDS ORDERED: ISOVUE-370 76% 100ML VIAL As Ordered ONE (18:43)
[2023-07-10] MEDS ORDERED: ENSU-12 PO (20:12)
[2023-07-10] MEDS ORDERED: LEVO88TA3 PO (20:12)
[2023-07-10] MEDS ORDERED: SODI15SS PO (20:12)
[2023-07-10] MEDS ORDERED: ENSULIQ51 PO (20:12)
[2023-07-10 20:20] LABS: BLOOD UREA NITROGEN 17 MG/DL (9-23); CALCIUM LEVEL 8.1 MG/DL (8.5-10.1); CARBON DIOXIDE LEVEL 24 MMOL/L (20-31); CHLORIDE LEVEL 112 MMOL/L (98-107); CPK CREATINE PHOSPHOKINASE 83 U/L (34-145); CREATININE FOR GFR 0.82 MG/DL (0.55-1.30); GLOMERULAR FILTRATION RATE > 60.0 (>51); GLUCOSE, FASTING 82 MG/DL (60-100); POTASSIUM SERUM 4.9 MMOL/L (3.5-5.1); SODIUM LEVEL 139 MMOL/L (136-145)
[2023-07-10 20:26] VITALS: BP 138/87; TEMP 97.6; O2SAT 94
[2023-07-10] MEDS ORDERED: MOM30SS2 PO (20:37)
[2023-07-10] MEDS ORDERED: HOME MED LIST COMPLETE! XX SCH (20:40)
[2023-07-10] MEDS: AZITHROMYCIN INJ 500 MG, VIAL MATE ADAPTER 1 EACH in NS 250 ML IV SCH (21:04)
[2023-07-10] MEDS ORDERED: NS 1,000 ML IV SCH (21:15)
[2023-07-10] MEDS: NS 1,000 ML IV SCH (22:15)
[2023-07-11] VITALS (10 sets, daily range): BP systolic 92–140; BP diastolic 50–79; TEMP 96.8–100; O2SAT 95–100
[2023-07-11] MEDS: PIPERACILLIN/TAZOBACTAM SOD 4.5 GM in D5W MINI-BAG PLUS 50 ML IV SCH (00:47)
[2023-07-11] MEDS: VANCOMYCIN HCL 750 MG, VIAL MATE ADAPTER 1 EACH in D5W 250 ML IV SCH (01:33)
[2023-07-11] MEDS ORDERED: BISACODYL 10MG SUPP PR PRN (01:55)
[2023-07-11] MEDS ORDERED: guaiFENesin SYRUP 200MG 10ML UDC PO PRN (01:55)
[2023-07-11] MEDS ORDERED: ACETAMINOPHEN TAB 650MG DOSE (2X325MG) PO PRN (01:55)
[2023-07-11] MEDS: ACETAMINOPHEN TAB 650MG DOSE (2X325MG) PO PRN (04:18)
[2023-07-11] MEDS: LEVOTHYROXINE 88MCG TABLET (0.088 MG) PO SCH (04:19)
[2023-07-11 05:36] LABS: HEMATOCRIT 24.2 % (36.0-47.0); HEMOGLOBIN 7.7 g/dl (12.0-15.5); MEAN CORPUSCULAR HGB CONC 31.8 g/dl (32.0-36.5); MEAN CORPUSCULAR VOLUME 94.2 fl (80.0-96.0); PLATELET COUNT, AUTOMATED 120 10^3/uL (150-450); RED BLOOD COUNT 2.57 10^6/uL (4.00-5.40); WHITE BLOOD COUNT 16.4 10^3/uL (4.0-10.0)
[2023-07-11 06:20] LABS: PROCALCITONIN 0.13 ng/ml
[2023-07-11 06:21] LABS: ALKALINE PHOSPHATASE 348 U/L (46-116); ALT/SGPT 155 U/L (7.0-40); AST/SGOT 66 U/L (<34); BILIRUBIN,TOTAL 0.3 MG/DL (0.3-1.2); BLOOD UREA NITROGEN 16 MG/DL (9-23); CALCIUM LEVEL 8.3 MG/DL (8.5-10.1); CARBON DIOXIDE LEVEL 24 MMOL/L (20-31); CHLORIDE LEVEL 110 MMOL/L (98-107); CREATININE FOR GFR 1.01 MG/DL (0.55-1.30); GLOMERULAR FILTRATION RATE > 60.0 (>51); GLUCOSE, FASTING 73 MG/DL (60-100); MAGNESIUM LEVEL 1.4 MG/DL (1.8-2.4); POTASSIUM SERUM 4.3 MMOL/L (3.5-5.1); SODIUM LEVEL 140 MMOL/L (136-145); TOTAL PROTEIN 5.4 G/DL (5.7-8.2)
[2023-07-11] MEDS: MAG SULF 1GM/100ML (MAG RUN) 1 GM in IV 1 EA IV SCH (07:38)
[2023-07-11] MEDS ORDERED: NEOSPORIN TOP OINT 15GM TOP PRN (09:40)
[2023-07-11] MEDS: NS 1,000 ML IV ONE (10:09)
[2023-07-11 10:26] LABS: IRON (FE) 79 UG/DL (50-170); PERCENT SATURATION 39.5 % (13.2-45.0); TOTAL IRON BINDING CAPACITY 200 UG/DL (250-425)
[2023-07-11] MEDS: ENOXAPARIN 40MG/0.4ML SYRINGE (J1650 PER 10MG) SC SCH (10:27)
[2023-07-11] MEDS: TOPIRAMATE (TopAMAX) 25 MG TAB JT SCH (10:28)
[2023-07-11] MEDS: FLUoxetine 20MG CAP PO SCH (10:28)
[2023-07-11] MEDS: PANTOPRAZOLE 20 MG TAB PO SCH (10:28)
[2023-07-11] MEDS: risperiDONE 1 MG TAB JT SCH (10:28)
[2023-07-11] MEDS: FOLIC ACID 1MG TAB JT SCH (10:29)
[2023-07-11 10:30] LABS: FERRITIN 1028.5 NG/ML (7.3-270.7); VITAMIN B12 LEVEL 1159 PG/ML (211-911)
[2023-07-11] MEDS: BACLOFEN 10 MG TAB JT SCH (10:30)
[2023-07-11] MEDS: SIMETHICONE 40MG/0.6ML DROPS 30ML PO SCH (11:30)
[2023-07-11] MEDS: VANCOMYCIN HCL 500 MG in D5W MINI-BAG PLUS 100 ML IV SCH (13:38)
[2023-07-11] MEDS: LORazepam 0.5 MG TAB JT SCH (15:05)
[2023-07-11 15:52] LABS: PHOSPHORUS LEVEL 2.8 MG/DL (2.5-4.9)
[2023-07-11] MEDS: MONTELUKAST 10 MG TAB JT SCH (20:21)
[2023-07-11 21:37] LABS: PHOSPHORUS LEVEL 3.2 MG/DL (2.5-4.9)
[2023-07-12] VITALS (33 sets, daily range): BP systolic 97–136; BP diastolic 56–88; TEMP 93.9–99.1; O2SAT 96–97
[2023-07-12 04:13] LABS: PHOSPHORUS LEVEL 2.8 MG/DL (2.5-4.9)
[2023-07-12 11:37] LABS: HEMATOCRIT 24.6 % (36.0-47.0); HEMOGLOBIN 7.7 g/dl (12.0-15.5); MEAN CORPUSCULAR HEMOGLOBIN 29.7 pg (27.0-33.0); MEAN CORPUSCULAR HGB CONC 31.3 g/dl (32.0-36.5); PLATELET COUNT, AUTOMATED 153 10^3/uL (150-450); RED BLOOD COUNT 2.59 10^6/uL (4.00-5.40); WHITE BLOOD COUNT 8.1 10^3/uL (4.0-10.0)
[2023-07-12 12:07] LABS: ALKALINE PHOSPHATASE 345 U/L (46-116); ALT/SGPT 140 U/L (7.0-40); AST/SGOT 55 U/L (<34); BILIRUBIN,TOTAL 0.2 MG/DL (0.3-1.2); BLOOD UREA NITROGEN 11 MG/DL (9-23); CARBON DIOXIDE LEVEL 28 MMOL/L (20-31); CHLORIDE LEVEL 112 MMOL/L (98-107); GLOMERULAR FILTRATION RATE > 60.0 (>51); GLUCOSE, FASTING 100 MG/DL (60-100); POTASSIUM SERUM 3.9 MMOL/L (3.5-5.1); SODIUM LEVEL 144 MMOL/L (136-145); TOTAL PROTEIN 5.6 G/DL (5.7-8.2)
[2023-07-12 12:09] LABS: ATYPICAL LYMPH 18 % (0-5); BASOPHILS 1 % (0-1); EOSINOPHILS 1 % (0-3); LYMPHOCYTES 3 % (16-44); MONOCYTES 13 % (0-5); NEUTROPHILS 64 % (28-66)
[2023-07-12 12:10] LABS: PLATELET ESTIMATE NORMAL (NORMAL); TOXIC GRANULATION 1+; TOXIC VACUOLATION 1+
[2023-07-12 12:11] LABS: POLYCHROMASIA 1+
[2023-07-12 12:12] LABS: HYPOCHROMASIA 1+
[2023-07-12 12:15] LABS: PROCALCITONIN 0.08 ng/ml
[2023-07-12] MEDS: VANCOMYCIN HCL 1,000 MG, VIAL MATE ADAPTER 1 EACH in D5W 250 ML IV SCH (14:15)
[2023-07-12] MEDS: PANTOPRAZOLE 40MG VIAL IV SCH (14:15)
[2023-07-12 17:03] LABS: HIV 1&2 SCREEN NEGATIVE (NEGATIVE)
[2023-07-12] MEDS: DOXYCYCLINE HYCLATE 100MG TABLET GT SCH (21:14)
[2023-07-12] MEDS ORDERED: AZITHROMYCIN 250MG TABLET JT SCH (22:00)
[2023-07-13] VITALS (8 sets, daily range): BP systolic 96–127; BP diastolic 56–79; TEMP 97–99.8; O2SAT 91–99
[2023-07-13 05:48] LABS: EOS # 0.1 10^3/uL (0.0-0.5); EOS % 0.7 % (0.0-3.0); HEMATOCRIT 22.6 % (36.0-47.0); HEMOGLOBIN 7.1 g/dl (12.0-15.5); LYMPH # 2.2 10^3/uL (1.5-5.0); LYMPH % 29.8 % (24.0-44.0); MEAN CORPUSCULAR HEMOGLOBIN 29.8 pg (27.0-33.0); MEAN CORPUSCULAR HGB CONC 31.4 g/dl (32.0-36.5); MONO # 0.7 10^3/uL (0.0-0.8); MONO % 10.1 % (2.0-8.0); NEUTROPHILS # 4.3 10^3/uL (1.5-8.5); NEUTROPHILS % 59.1 % (36.0-66.0); PLATELET COUNT, AUTOMATED 149 10^3/uL (150-450); RED BLOOD COUNT 2.38 10^6/uL (4.00-5.40); WHITE BLOOD COUNT 7.2 10^3/uL (4.0-10.0)
[2023-07-13 06:01] LABS: ALBUMIN 1.9 G/DL (3.2-5.2); ALKALINE PHOSPHATASE 306 U/L (46-116); ALT/SGPT 110 U/L (7.0-40); AST/SGOT 40 U/L (<34); BILIRUBIN,TOTAL 0.2 MG/DL (0.3-1.2); BLOOD UREA NITROGEN 9 MG/DL (9-23); CALCIUM LEVEL 8.6 MG/DL (8.5-10.1); CARBON DIOXIDE LEVEL 28 MMOL/L (20-31); CHLORIDE LEVEL 113 MMOL/L (98-107); GLOMERULAR FILTRATION RATE > 60.0 (>51); GLUCOSE, FASTING 92 MG/DL (60-100); POTASSIUM SERUM 3.8 MMOL/L (3.5-5.1); SODIUM LEVEL 146 MMOL/L (136-145); TOTAL PROTEIN 5.4 G/DL (5.7-8.2)
[2023-07-13] MEDS ORDERED: DOXY100T GT (11:50)
[2023-07-13 17:43] LABS: HEMATOCRIT 27.1 % (36.0-47.0); HEMOGLOBIN 8.7 g/dl (12.0-15.5)
[2023-07-13 20:54] LABS: MAGNESIUM LEVEL 1.6 MG/DL (1.8-2.4)
[2023-07-13 21:54] LABS: PHOSPHORUS LEVEL 3.7 MG/DL (2.5-4.9)
[2023-07-13] MEDS: MAG SULF 1GM/100ML (MAG RUN) 1 GM in IV 1 EA IV SCH (23:11)
[2023-07-14 05:42] VITALS: BP 98/70; TEMP 97.7; O2SAT 96
[2023-07-14 06:09] LABS: HEPATITIS A IgG TOTAL Negative (Negative); HEPATITIS B CORE ANTIBODY IGG Negative (Negative)
[2023-07-14 07:24] LABS: BASO % 0.2 % (0.0-1.0); EOS # 0.1 10^3/uL (0.0-0.5); EOS % 1.6 % (0.0-3.0); HEMOGLOBIN 8.7 g/dl (12.0-15.5); LYMPH # 2.4 10^3/uL (1.5-5.0); LYMPH % 36.8 % (24.0-44.0); MEAN CORPUSCULAR HEMOGLOBIN 30.2 pg (27.0-33.0); MEAN CORPUSCULAR HGB CONC 32.2 g/dl (32.0-36.5); MEAN CORPUSCULAR VOLUME 93.8 fl (80.0-96.0); MONO # 0.7 10^3/uL (0.0-0.8); NEUTROPHILS # 3.2 10^3/uL (1.5-8.5); NEUTROPHILS % 50.2 % (36.0-66.0); PLATELET COUNT, AUTOMATED 179 10^3/uL (150-450); RED BLOOD COUNT 2.88 10^6/uL (4.00-5.40); WHITE BLOOD COUNT 6.4 10^3/uL (4.0-10.0)
[2023-07-14 08:17] LABS: ALKALINE PHOSPHATASE 321 U/L (46-116); ALT/SGPT 94 U/L (7.0-40); AST/SGOT 32 U/L (<34); BILIRUBIN,TOTAL 0.4 MG/DL (0.3-1.2); BLOOD UREA NITROGEN 11 MG/DL (9-23); CALCIUM LEVEL 8.8 MG/DL (8.5-10.1); CARBON DIOXIDE LEVEL 30 MMOL/L (20-31); CHLORIDE LEVEL 110 MMOL/L (98-107); CREATININE FOR GFR 0.93 MG/DL (0.55-1.30); GLOMERULAR FILTRATION RATE > 60.0 (>51); GLUCOSE, FASTING 68 MG/DL (60-100); PHOSPHORUS LEVEL 3.2 MG/DL (2.5-4.9); POTASSIUM SERUM 3.7 MMOL/L (3.5-5.1); SODIUM LEVEL 144 MMOL/L (136-145); TOTAL PROTEIN 5.6 G/DL (5.7-8.2)
[2023-07-14] MEDS ORDERED: POTA-151 JT (11:30)
[2023-07-14] MEDS ORDERED: POTA50TAB JT (11:30)
[2023-07-14] MEDS ORDERED: ESSE250T JT (11:30)
[2023-07-14] MEDS ORDERED: DOXY100T JT (11:36)
[2023-07-14 12:47] LABS: PHOSPHORUS LEVEL 2.6 MG/DL (2.5-4.9); POTASSIUM SERUM 3.7 MMOL/L (3.5-5.1)
[2023-07-14 14:00] VITALS: BP 108/66; TEMP 98.1; O2SAT 98
[2023-07-16 12:33] LABS: FUNGITELL, SERUM <31 pg/mL (<60)
[2023-07-17 16:17] LABS: BODY FLUID CULTURE Not indicated. (.); LEGIONELLA ANTIGEN URINE Negative (Negative); ORGANISM ID Not indicated. (.); SPECIMEN SOURCE Urine (.); URINE STREP PNEUMONIAE ANTIGEN Negative (Negative)
== END 2023-07-14 17:30 | disposition home or self-care (01) | DRG 871 ==
LOC: EDBD 14:58 → M ED 14:58 → M ED INP 18:08 → ENRESERV 18:50 → M PCU 20:17 → M MS5PR 07-13 19:44
PROVIDERS: ADMIT Internal Medicine; ATTEND Internal Medicine
PROC: 30233N1 Transfusion of Nonautologous Red Blood Cells into Peripheral Vein, Percutaneous Approach (ICD-10-PCS; principal; 2023-07-13)
DX: A41.9 Sepsis, unspecified organism (principal); J69.0 Pneumonitis due to inhalation of food and vomit; G93.41 Metabolic encephalopathy; Q04.0 Congenital malformations of corpus callosum; I47.19 Other supraventricular tachycardia; F79 Unspecified intellectual disabilities; R13.10 Dysphagia, unspecified; Z93.2 Ileostomy status; K59.09 Other constipation; R74.01 Elevation of levels of liver transaminase levels; E87.5 Hyperkalemia; Z79.890 Hormone replacement therapy; Z79.899 Other long term (current) drug therapy; Z11.52 Encounter for screening for COVID-19; G89.4 Chronic pain syndrome; K21.9 Gastro-esophageal reflux disease without esophagitis; E03.9 Hypothyroidism, unspecified; F32.9 Major depressive disorder, single episode, unspecified; D69.59 Other secondary thrombocytopenia; I44.0 Atrioventricular block, first degree

== ENCOUNTER → 2023-07-15 | Outpatient (CLI) | payer MEDICARE, MEDICAID ==
[~2023-07-15] MED LIST changes: +DOXY100T GT; +DOXY100T JT; +ENSU-12 PO; +ENSULIQ51 PO; +ESSE250T JT; +MOM30SS2 PO; +POTA-151 JT; +POTA50TAB JT; +SODI15SS PO
[2023-07-15 11:12] LABS: MAGNESIUM LEVEL 1.7 MG/DL (1.8-2.4); PHOSPHORUS LEVEL 2.5 MG/DL (2.5-4.9)
== END ==
LOC: M LAB 09:53
PROVIDERS: ATTEND Internal Medicine
DX: E83.42 Hypomagnesemia (principal); E87.6 Hypokalemia; E83.30 Disorder of phosphorus metabolism, unspecified

== ENCOUNTER → 2023-07-16 | Outpatient (REF) | payer MEDICARE, MEDICAID ==
[2023-07-16 17:33] LABS: ALBUMIN 2.2 G/DL (3.2-5.2); ALKALINE PHOSPHATASE 270 U/L (46-116); ALT/SGPT 99 U/L (7.0-40); AST/SGOT 58 U/L (<34); BILIRUBIN,TOTAL 0.2 MG/DL (0.3-1.2); BLOOD UREA NITROGEN 15 MG/DL (9-23); CALCIUM LEVEL 9.6 MG/DL (8.5-10.1); CARBON DIOXIDE LEVEL 31 MMOL/L (20-31); CHLORIDE LEVEL 110 MMOL/L (98-107); CREATININE FOR GFR 0.63 MG/DL (0.55-1.30); GLOMERULAR FILTRATION RATE > 60.0 (>51); GLUCOSE, FASTING 101 MG/DL (60-100); POTASSIUM SERUM 4.8 MMOL/L (3.5-5.1); SODIUM LEVEL 143 MMOL/L (136-145); TOTAL PROTEIN 6.2 G/DL (5.7-8.2)
[2023-07-16 18:07] LABS: HEMATOCRIT 29.8 % (36.0-47.0); HEMOGLOBIN 9.2 g/dl (12.0-15.5); MEAN CORPUSCULAR HEMOGLOBIN 30.7 pg (27.0-33.0); MEAN CORPUSCULAR HGB CONC 30.9 g/dl (32.0-36.5); MEAN CORPUSCULAR VOLUME 99.3 fl (80.0-96.0); PLATELET COUNT, AUTOMATED 249 10^3/uL (150-450); WHITE BLOOD COUNT 7.6 10^3/uL (4.0-10.0)
== END ==
LOC: M LABWUC 16:35
PROVIDERS: ATTEND Registered Nurse
DX: E63.9 Nutritional deficiency, unspecified (principal); E83.31 Familial hypophosphatemia; E83.42 Hypomagnesemia

== ENCOUNTER → 2023-07-16 | Outpatient (REF) | payer MEDICARE, MEDICAID | LOC: M LABWUC 16:40 | PROVIDERS: ATTEND Internal Medicine | DX: E83.31 Familial hypophosphatemia (principal); E83.42 Hypomagnesemia ==

== ENCOUNTER → 2023-07-25 | Outpatient (CLI) | payer MEDICARE, MEDICAID | LOC: M WHC 11:02 | PROVIDERS: ATTEND Registered Nurse | DX: Z12.31 Encounter for screening mammogram for malignant neoplasm of breast (principal); R92.323 Mammographic fibroglandular density, bilateral breasts ==

== ENCOUNTER → 2023-07-31 | Outpatient (CLI) | payer MEDICARE, MEDICAID ==
[2023-07-31 10:25] LABS: BASO % 0.3 % (0.0-1.0); EOS % 1.1 % (0.0-3.0); HEMATOCRIT 34.6 % (36.0-47.0); HEMOGLOBIN 10.4 g/dl (12.0-15.5); LYMPH # 1.3 10^3/uL (1.5-5.0); LYMPH % 34.2 % (24.0-44.0); MEAN CORPUSCULAR HGB CONC 30.1 g/dl (32.0-36.5); MEAN CORPUSCULAR VOLUME 99.7 fl (80.0-96.0); MONO # 0.4 10^3/uL (0.0-0.8); MONO % 10.1 % (2.0-8.0); PLATELET COUNT, AUTOMATED 202 10^3/uL (150-450); RED BLOOD COUNT 3.47 10^6/uL (4.00-5.40); WHITE BLOOD COUNT 3.7 10^3/uL (4.0-10.0)
[2023-07-31 10:55] LABS: HEMOGLOBIN A1c 5.8 % (4.0-6.0); PROLACTIN 31.07 NG/ML
[2023-07-31 11:14] LABS: ALBUMIN 3.4 G/DL (3.2-5.2); ALKALINE PHOSPHATASE 357 U/L (46-116); ALT/SGPT 216 U/L (7.0-40); AST/SGOT 108 U/L (<34); BILIRUBIN,TOTAL < 0.2 MG/DL (0.3-1.2); BLOOD UREA NITROGEN 44 MG/DL (9-23); CALCIUM LEVEL 10.6 MG/DL (8.5-10.1); CARBON DIOXIDE LEVEL 25 MMOL/L (20-31); CHLORIDE LEVEL 107 MMOL/L (98-107); CHOLESTEROL LEVEL 286 MG/DL (<200); CHOLESTEROL RISK RATIO 2.82 (<5); CREATININE FOR GFR 0.68 MG/DL (0.55-1.30); GLOMERULAR FILTRATION RATE > 60.0 (>51); GLUCOSE, FASTING 77 MG/DL (60-100); HDL CHOLESTEROL 101.1 MG/DL (>40); LDL CHOLESTEROL 174.7 MG/DL (<100); NON-HDL-C 184.9 MG/DL; POTASSIUM SERUM 6.3 MMOL/L (3.5-5.1); SODIUM LEVEL 138 MMOL/L (136-145); TOTAL PROTEIN 8.1 G/DL (5.7-8.2); TRIGLYCERIDES LEVEL 51 MG/DL (<150)
== END ==
LOC: M WUC 08:36
PROVIDERS: ATTEND Physician Assistant
DX: Z79.899 Other long term (current) drug therapy (principal)

== ENCOUNTER → 2023-07-31 | Outpatient (CLI) | payer MEDICARE, MEDICAID ==
[2023-07-31 10:54] LABS: FREE T4 0.97 NG/DL (0.89-1.76); THYROID STIMULATING HORMONE 0.079 uIU/ML (0.55-4.78)
[2023-07-31 11:24] LABS: ALBUMIN 3.4 G/DL (3.2-5.2); ALKALINE PHOSPHATASE 355 U/L (46-116); ALT/SGPT 216 U/L (7.0-40); AST/SGOT 108 U/L (<34); BILIRUBIN,TOTAL < 0.2 MG/DL (0.3-1.2); BLOOD UREA NITROGEN 44 MG/DL (9-23); CALCIUM LEVEL 10.8 MG/DL (8.5-10.1); CARBON DIOXIDE LEVEL 26 MMOL/L (20-31); CHLORIDE LEVEL 107 MMOL/L (98-107); FREE T3 3.9 PG/ML (2.3-4.2); GLOMERULAR FILTRATION RATE > 60.0 (>51); GLUCOSE, FASTING 78 MG/DL (60-100); POTASSIUM SERUM 6.5 MMOL/L (3.5-5.1); SODIUM LEVEL 137 MMOL/L (136-145); TOTAL PROTEIN 8.1 G/DL (5.7-8.2)
== END ==
LOC: M WUC 08:38
PROVIDERS: ATTEND Registered Nurse
DX: E03.8 Other specified hypothyroidism (principal); E78.5 Hyperlipidemia, unspecified

== ENCOUNTER → 2023-08-07 | Outpatient (REF) | payer MEDICARE, MEDICAID ==
[2023-08-07 12:22] LABS: ALBUMIN 3.1 G/DL (3.2-5.2); ALKALINE PHOSPHATASE 357 U/L (46-116); ALT/SGPT 188 U/L (7.0-40); AST/SGOT 102 U/L (<34); BILIRUBIN,TOTAL < 0.2 MG/DL (0.3-1.2); BLOOD UREA NITROGEN 32 MG/DL (9-23); CALCIUM LEVEL 10.6 MG/DL (8.5-10.1); CARBON DIOXIDE LEVEL 31 MMOL/L (20-31); CHLORIDE LEVEL 105 MMOL/L (98-107); CREATININE FOR GFR 0.73 MG/DL (0.55-1.30); GLOMERULAR FILTRATION RATE > 60.0 (>51); GLUCOSE, FASTING 76 MG/DL (60-100); POTASSIUM SERUM 5.9 MMOL/L (3.5-5.1); SODIUM LEVEL 140 MMOL/L (136-145); TOTAL PROTEIN 7.3 G/DL (5.7-8.2)
== END ==
LOC: M LABWUC 10:09
PROVIDERS: ATTEND Registered Nurse
DX: E87.5 Hyperkalemia (principal)

== ENCOUNTER → 2023-08-21 | Outpatient (CLI) | payer MEDICARE, MEDICAID | LOC: M LAB 10:25 | PROVIDERS: ATTEND Registered Nurse | DX: E87.5 Hyperkalemia (principal); R79.89 Other specified abnormal findings of blood chemistry ==

== ENCOUNTER → 2023-08-29 | Outpatient (CLI) | payer MEDICARE, MEDICAID ==
[~2023-08-29] MED LIST changes: +JEVILIQ12 PO; +LEVO50TA5 PO; -ROSU10TA6 PO; +ROSU10TA61 PO
[2023-08-29 16:58] LABS: HEMOGLOBIN A1c 5.2 % (4.0-6.0)
== END ==
LOC: M LAB 15:11
PROVIDERS: ATTEND Registered Nurse
DX: R79.89 Other specified abnormal findings of blood chemistry (principal); E11.9 Type 2 diabetes mellitus without complications; E87.5 Hyperkalemia

== ENCOUNTER → 2023-09-07 | Outpatient (CLI) | payer MEDICARE, MEDICAID | LOC: M LAB 13:31 | PROVIDERS: ATTEND Registered Nurse | DX: E87.5 Hyperkalemia (principal) ==

== ENCOUNTER 2023-09-14 17:59 | Inpatient (IN) | payer MEDICARE, MEDICAID ==
[~2023-09-14] VITALS: Ht 165.1 cm; Wt 66.5 kg
[2023-09-14 19:03] LABS: BASO % 0.2 % (0.0-1.0); EOS # 0.1 10^3/uL (0.0-0.5); EOS % 1.1 % (0.0-3.0); HEMATOCRIT 26.2 % (36.0-47.0); HEMOGLOBIN 8.2 g/dl (12.0-15.5); LYMPH # 1.6 10^3/uL (1.5-5.0); LYMPH % 34.8 % (24.0-44.0); MEAN CORPUSCULAR HEMOGLOBIN 31.2 pg (27.0-33.0); MEAN CORPUSCULAR HGB CONC 31.3 g/dl (32.0-36.5); MEAN CORPUSCULAR VOLUME 99.6 fl (80.0-96.0); MONO # 0.4 10^3/uL (0.0-0.8); MONO % 7.9 % (2.0-8.0); NEUTROPHILS # 2.6 10^3/uL (1.5-8.5); NEUTROPHILS % 55.8 % (36.0-66.0); PLATELET COUNT, AUTOMATED 151 10^3/uL (150-450); RED BLOOD COUNT 2.63 10^6/uL (4.00-5.40); WHITE BLOOD COUNT 4.7 10^3/uL (4.0-10.0)
[2023-09-14 19:48] LABS: BLOOD UREA NITROGEN 37 MG/DL (9-23); CALCIUM LEVEL 9.6 MG/DL (8.5-10.1); CARBON DIOXIDE LEVEL 26 MMOL/L (20-31); CHLORIDE LEVEL 106 MMOL/L (98-107); CREATININE FOR GFR 0.57 MG/DL (0.55-1.30); GLOMERULAR FILTRATION RATE > 60.0 (>51); GLUCOSE, FASTING 86 MG/DL (60-100); POTASSIUM SERUM 6.2 MMOL/L (3.5-5.1); SODIUM LEVEL 138 MMOL/L (136-145)
[2023-09-14 20:23] LABS: AMYLASE 208 U/L (30-118)
[2023-09-14 20:24] LABS: ALBUMIN 2.9 G/DL (3.2-5.2); ALKALINE PHOSPHATASE 193 U/L (46-116); ALT/SGPT 149 U/L (7.0-40); AST/SGOT 83 U/L (<34); BILIRUBIN,DIRECT < 0.1 MG/DL (<0.4); BILIRUBIN,TOTAL < 0.2 MG/DL (0.3-1.2); PHOSPHORUS LEVEL 3.7 MG/DL (2.5-4.9); TOTAL PROTEIN 6.7 G/DL (5.7-8.2)
[2023-09-14 20:31] LABS: PROCALCITONIN <0.04 ng/ml
[2023-09-14] MEDS ORDERED: cefTRIAXone SOD 2 GM in D5W MINI-BAG PLUS 50 ML IV ONE (20:35)
[2023-09-14] MEDS ORDERED: VANCOMYCIN HCL 1,500 MG in NS 250 ML IV ONE (20:35)
[2023-09-14 20:57] LABS: APPEARANCE, URINE HAZY (CLEAR); BACTERIA, URINE AUTO 3+ (NEGATIVE); BILIRUBIN, URINE AUTO NEGATIVE (NEGATIVE); BLOOD, URINE BLOOD NEGATIVE (NEGATIVE); COLOR, URINE YELLOW (YELLOW); GLUCOSE, URINE (UA) AUTO NEGATIVE (NEGATIVE); KETONE, URINE AUTO NEGATIVE (NEGATIVE); LEUKOCYTE ESTERASE, URINE AUTO TRACE (NEGATIVE); MUCUS, URINE MODERATE (NEGATIVE); NITRITE, URINE AUTO NEGATIVE (NEGATIVE); PROTEIN, URINE AUTO NEGATIVE (NEGATIVE); RBC, URINE AUTO 0 /HPF (0-3); SPECIFIC GRAVITY URINE AUTO 1.015 (1.002-1.035); SQUAMOUS EPITHELIAL CELL UR AU 2 /HPF (0-6); UROBILINOGEN, URINE AUTO 0.2 mg/dL (0.0-2.0); WBC, URINE AUTO 5 /HPF (0-3)
[2023-09-14] MEDS: NS 2,140 ML in IV 1 EA IV ONE (21:11)
[2023-09-14 21:25] LABS: VENOUS BASE EXCESS -2.1 (-2.0-2.0); VENOUS HCO3 24.9 MMOL/L (23.0-27.0); VENOUS PARTIAL PRESSURE CO2 54.6 mmHg (38.0-50.0); VENOUS PARTIAL PRESSURE O2 101.8 mmHg (30.0-50.0); VENOUS PH 7.277 UNITS (7.330-7.430); VENOUS STANDARD HCO3 22.7 MMOL/L; VENOUS TOTAL CO2 26.6 MMOL/L (24.0-28.0)
[2023-09-14 21:26] LABS: INR 0.92; PARTIAL THROMBOPLASTIN TIME 36.5 SECONDS (24.8-34.2); PROTHROMBIN TIME 12.1 SECONDS (12.5-14.5)
[2023-09-14] MEDS: PATIROMER SORBITEX CALCIUM 8.4 GM POWDER PACKET (VELTASSA) PO ONE (22:58)
[2023-09-14] MEDS ORDERED: HOME MED LIST COMPLETE! XX SCH (23:35)
[2023-09-15] MEDS ORDERED: ONDANSETRON 4MG TAB PO PRN (01:10)
[2023-09-15] MEDS ORDERED: GLUCOSE 4 GM CHEW PO PRN (02:05)
[2023-09-15] MEDS ORDERED: GLUCAGON INJ 1MG VIAL SC PRN (02:05)
[2023-09-15] MEDS: DEXTROSE 50% 50ML SYRINGE IV PRN (02:09)
[2023-09-15] MEDS: LR 500 ML IV ONE (04:46)
[2023-09-15] MEDS: COSYNTROPIN 0.25 MG/ML 1ML VIAL IV ONE (05:41)
[2023-09-15] MEDS ORDERED: LEVOTHYROXINE 50MCG TABLET (0.05MG) PO SCH (06:00)
[2023-09-15 07:09] LABS: BLOOD UREA NITROGEN 28 MG/DL (9-23); CALCIUM LEVEL 9.3 MG/DL (8.5-10.1); CARBON DIOXIDE LEVEL 25 MMOL/L (20-31); CHLORIDE LEVEL 114 MMOL/L (98-107); CREATININE FOR GFR 0.65 MG/DL (0.55-1.30); GLOMERULAR FILTRATION RATE > 60.0 (>51); GLUCOSE, FASTING 61 MG/DL (60-100); POTASSIUM SERUM 5.8 MMOL/L (3.5-5.1); SODIUM LEVEL 143 MMOL/L (136-145)
[2023-09-15 07:12] LABS: THYROID STIMULATING HORMONE 7.743 uIU/ML (0.55-4.78)
[2023-09-15] MEDS: HYDROCORTISONE 100MG/2ML VIAL IV ONE (07:37)
[2023-09-15] MEDS: HEPARIN SOD (PORCINE) 5000UNITS/ML 1ML VIAL/SYRINGE SC SCH (07:48)
[2023-09-15] MEDS: LEVOTHYROXINE 50MCG TABLET (0.05MG) PO SCH (07:49)
[2023-09-15] MEDS: D5W/0.9% SODIUM CHLORIDE 1,000 ML IV SCH ×2 (07:49→16:31)
[2023-09-15] MEDS: NS 500 ML IV ONE (10:09)
[2023-09-15] MEDS: FOLIC ACID 1MG TAB JT SCH (11:16)
[2023-09-15] MEDS: FLUoxetine 20MG CAP PO SCH (11:16)
[2023-09-15] MEDS: risperiDONE 1 MG TAB JT SCH (11:17)
[2023-09-15] MEDS: cefTRIAXone SOD 1 GM in D5W MINI-BAG PLUS 50 ML IV SCH (11:18)
[2023-09-15] MEDS: D10W/0.45% SODIUM CHLORIDE 1,000 ML IV SCH (11:28)
[2023-09-15] MEDS: SIMETHICONE 40MG/0.6ML DROPS 30ML PO SCH (13:19)
[2023-09-15 13:21] LABS: BLOOD UREA NITROGEN 26 MG/DL (9-23); CARBON DIOXIDE LEVEL 25 MMOL/L (20-31); CHLORIDE LEVEL 112 MMOL/L (98-107); GLOMERULAR FILTRATION RATE > 60.0 (>51); GLUCOSE, FASTING 115 MG/DL (60-100); POTASSIUM SERUM 6.2 MMOL/L (3.5-5.1); SODIUM LEVEL 141 MMOL/L (136-145)
[2023-09-15] MEDS: VANCOMYCIN HCL 1,000 MG, VIAL MATE ADAPTER 1 EACH in D5W 250 ML IV ONE (13:24)
[2023-09-15] MEDS: LORazepam 0.5 MG TAB JT SCH (15:00)
[2023-09-15] MEDS: ALBUTEROL SULFATE 2.5MG/0.5ML INH NEB SOLN NEB STA (15:06)
[2023-09-15] MEDS: HYDROCORTISONE 100MG/2ML VIAL IV SCH (15:46)
[2023-09-15] MEDS ORDERED: MIDODRINE 5 MG TAB PO SCH (16:00)
[2023-09-15] MEDS: CALCIUM GLUCONATE 1,000 MG in D5W MINI-BAG PLUS 100 ML IV ONE (16:15)
[2023-09-15] MEDS: MIDODRINE 5 MG TAB JT SCH (16:30)
[2023-09-15 17:10] VITALS: BP 103/66; TEMP 98.4; O2SAT 96
[2023-09-15 18:42] LABS: BLOOD UREA NITROGEN 26 MG/DL (9-23); CALCIUM LEVEL 9.5 MG/DL (8.5-10.1); CARBON DIOXIDE LEVEL 24 MMOL/L (20-31); CHLORIDE LEVEL 111 MMOL/L (98-107); CREATININE FOR GFR 0.75 MG/DL (0.55-1.30); GLOMERULAR FILTRATION RATE > 60.0 (>51); GLUCOSE, FASTING 114 MG/DL (60-100); POTASSIUM SERUM 5.5 MMOL/L (3.5-5.1); SODIUM LEVEL 141 MMOL/L (136-145)
[2023-09-15 19:26] VITALS: BP 102/63; TEMP 98.2; O2SAT 95
[2023-09-15] MEDS: ALBUTEROL SULFATE 2.5MG/0.5ML INH NEB SOLN NEB ONE (20:48)
[2023-09-15] MEDS: VANCOMYCIN HCL 1,000 MG, VIAL MATE ADAPTER 1 EACH in D5W 250 ML IV SCH (20:52)
[2023-09-15 21:06] VITALS: BP 86/50; TEMP 97.8; O2SAT 97
[2023-09-15] MEDS: SOD POLYSTYRENE SULFONATE SUSP 15GM 60ML UD PO SCH (21:36)
[2023-09-15] MEDS: MONTELUKAST 10 MG TAB JT SCH (21:39)
[2023-09-15 22:20] VITALS: BP 80/40; O2SAT 98
[2023-09-15 23:04] LABS: BLOOD UREA NITROGEN 25 MG/DL (9-23); CALCIUM LEVEL 9.1 MG/DL (8.5-10.1); CARBON DIOXIDE LEVEL 22 MMOL/L (20-31); CHLORIDE LEVEL 111 MMOL/L (98-107); CREATININE FOR GFR 0.76 MG/DL (0.55-1.30); GLOMERULAR FILTRATION RATE > 60.0 (>51); GLUCOSE, FASTING 135 MG/DL (60-100); POTASSIUM SERUM 4.6 MMOL/L (3.5-5.1); SODIUM LEVEL 142 MMOL/L (136-145)
[2023-09-15 23:32] VITALS: BP 84/42; TEMP 97.2; O2SAT 98
[2023-09-16] VITALS (8 sets, daily range): BP systolic 92–109; BP diastolic 54–69; TEMP 96.9–97.8; O2SAT 95–100
[2023-09-16] MEDS: FOSFOMYCIN TROMETHAMINE 3 GM POWDER PACKET (MONUROL) PO ONE (00:29)
[2023-09-16] MEDS: ACETAMINOPHEN TAB 650MG DOSE (2X325MG) PO PRN (05:01)
[2023-09-16 08:27] LABS: BLOOD UREA NITROGEN 19 MG/DL (9-23); CALCIUM LEVEL 9.1 MG/DL (8.5-10.1); CARBON DIOXIDE LEVEL 27 MMOL/L (20-31); CHLORIDE LEVEL 112 MMOL/L (98-107); CREATININE FOR GFR 0.72 MG/DL (0.55-1.30); GLOMERULAR FILTRATION RATE > 60.0 (>51); GLUCOSE, FASTING 80 MG/DL (60-100); MAGNESIUM LEVEL 1.5 MG/DL (1.8-2.4); POTASSIUM SERUM 5.2 MMOL/L (3.5-5.1); SODIUM LEVEL 142 MMOL/L (136-145)
[2023-09-16 08:29] LABS: FREE T4 0.64 NG/DL (0.89-1.76); THYROXINE (T4) 6.6 UG/DL (4.5-10.9)
[2023-09-16 08:30] LABS: FREE T3 2.2 PG/ML (2.3-4.2)
[2023-09-16] MEDS: MAG SULF 1GM/100ML (MAG RUN) 1 GM in IV 1 EA IV SCH (12:06)
[2023-09-17 03:28] VITALS: BP 107/67; TEMP 97.2; O2SAT 100
[2023-09-17] MEDS: LEVOTHYROXINE 75MCG TABLET (0.075MG) PO SCH (05:01)
[2023-09-17 06:32] LABS: VENOUS BASE EXCESS 1.2 (-2.0-2.0); VENOUS HCO3 26.9 MMOL/L (23.0-27.0); VENOUS O2 SATURATION 97.5 % (60.0-80.0); VENOUS PARTIAL PRESSURE CO2 48.3 mmHg (38.0-50.0); VENOUS PARTIAL PRESSURE O2 104.3 mmHg (30.0-50.0); VENOUS PH 7.363 UNITS (7.330-7.430); VENOUS STANDARD HCO3 25.5 MMOL/L; VENOUS TOTAL CO2 28.3 MMOL/L (24.0-28.0)
[2023-09-17 06:44] LABS: BASO % 0.2 % (0.0-1.0); EOS % 0.3 % (0.0-3.0); HEMATOCRIT 23.4 % (36.0-47.0); HEMOGLOBIN 7.2 g/dl (12.0-15.5); LYMPH # 2.4 10^3/uL (1.5-5.0); LYMPH % 41.5 % (24.0-44.0); MEAN CORPUSCULAR HEMOGLOBIN 30.8 pg (27.0-33.0); MEAN CORPUSCULAR HGB CONC 30.8 g/dl (32.0-36.5); MONO # 0.2 10^3/uL (0.0-0.8); MONO % 2.8 % (2.0-8.0); NEUTROPHILS # 3.2 10^3/uL (1.5-8.5); PLATELET COUNT, AUTOMATED 132 10^3/uL (150-450); RED BLOOD COUNT 2.34 10^6/uL (4.00-5.40); WHITE BLOOD COUNT 5.8 10^3/uL (4.0-10.0)
[2023-09-17 07:10] LABS: BLOOD UREA NITROGEN 17 MG/DL (9-23); CALCIUM LEVEL 9.3 MG/DL (8.5-10.1); CARBON DIOXIDE LEVEL 29 MMOL/L (20-31); CHLORIDE LEVEL 112 MMOL/L (98-107); GLOMERULAR FILTRATION RATE > 60.0 (>51); GLUCOSE, FASTING 156 MG/DL (60-100); MAGNESIUM LEVEL 1.9 MG/DL (1.8-2.4); POTASSIUM SERUM 4.4 MMOL/L (3.5-5.1); SODIUM LEVEL 145 MMOL/L (136-145)
[2023-09-17 07:38] VITALS: BP 96/65; TEMP 96.5; O2SAT 97
[2023-09-17 10:24] LABS: HEMATOCRIT 23.1 % (36.0-47.0); HEMOGLOBIN 7.3 g/dl (12.0-15.5)
[2023-09-17 12:11] VITALS: BP 102/62; TEMP 97.1; O2SAT 99
[2023-09-17 19:20] VITALS: BP 101/70; TEMP 97.9; O2SAT 99
[2023-09-17 20:36] VITALS: BP 102/67; TEMP 97.5; O2SAT 100
[2023-09-18 04:41] VITALS: BP 100/65; TEMP 99; O2SAT 98
[2023-09-18] MEDS: BACLOFEN 10 MG TAB JT SCH (10:56)
[2023-09-18 11:08] LABS: BASO % 0.1 % (0.0-1.0); EOS % 0.2 % (0.0-3.0); HEMATOCRIT 23.4 % (36.0-47.0); HEMOGLOBIN 7.3 g/dl (12.0-15.5); LYMPH # 2.9 10^3/uL (1.5-5.0); MEAN CORPUSCULAR HEMOGLOBIN 30.9 pg (27.0-33.0); MEAN CORPUSCULAR HGB CONC 31.2 g/dl (32.0-36.5); MEAN CORPUSCULAR VOLUME 99.2 fl (80.0-96.0); MONO # 0.8 10^3/uL (0.0-0.8); MONO % 9.8 % (2.0-8.0); NEUTROPHILS # 4.4 10^3/uL (1.5-8.5); NEUTROPHILS % 54.5 % (36.0-66.0); PLATELET COUNT, AUTOMATED 145 10^3/uL (150-450); RED BLOOD COUNT 2.36 10^6/uL (4.00-5.40); WHITE BLOOD COUNT 8.2 10^3/uL (4.0-10.0)
[2023-09-18 11:30] LABS: BLOOD UREA NITROGEN 17 MG/DL (9-23); CALCIUM LEVEL 9.1 MG/DL (8.5-10.1); CARBON DIOXIDE LEVEL 31 MMOL/L (20-31); CHLORIDE LEVEL 110 MMOL/L (98-107); CREATININE FOR GFR 0.77 MG/DL (0.55-1.30); GLOMERULAR FILTRATION RATE > 60.0 (>51); GLUCOSE, FASTING 86 MG/DL (60-100); MAGNESIUM LEVEL 1.5 MG/DL (1.8-2.4); POTASSIUM SERUM 4.3 MMOL/L (3.5-5.1); SODIUM LEVEL 145 MMOL/L (136-145)
[2023-09-18 14:00] VITALS: BP 121/86; TEMP 97.9; O2SAT 99
[2023-09-18] MEDS: MAG SULF 1GM/100ML (MAG RUN) 1 GM in IV 1 EA IV SCH (17:56)
[2023-09-18 19:36] VITALS: BP 117/81; TEMP 97.7; O2SAT 100
[2023-09-19] VITALS (7 sets, daily range): BP systolic 96–113; BP diastolic 69–76; TEMP 97.2–97.7; O2SAT 93–100
[2023-09-19] MEDS: DEXTROSE 50% 50ML SYRINGE IV STA (07:13)
[2023-09-19 08:45] LABS: BASO % 0.3 % (0.0-1.0); EOS # 0.1 10^3/uL (0.0-0.5); EOS % 1.4 % (0.0-3.0); LYMPH % 42.6 % (24.0-44.0); MEAN CORPUSCULAR HEMOGLOBIN 30.8 pg (27.0-33.0); MEAN CORPUSCULAR HGB CONC 31.4 g/dl (32.0-36.5); MEAN CORPUSCULAR VOLUME 98.2 fl (80.0-96.0); MONO # 0.7 10^3/uL (0.0-0.8); MONO % 9.9 % (2.0-8.0); NEUTROPHILS # 3.3 10^3/uL (1.5-8.5); NEUTROPHILS % 45.5 % (36.0-66.0); PLATELET COUNT, AUTOMATED 147 10^3/uL (150-450); RED BLOOD COUNT 2.24 10^6/uL (4.00-5.40); WHITE BLOOD COUNT 7.1 10^3/uL (4.0-10.0)
[2023-09-19 08:55] LABS: HEMOGLOBIN 6.9 g/dl (12.0-15.5)
[2023-09-19] MEDS: HYDROCORTISONE 100MG/2ML VIAL IV SCH (09:14)
[2023-09-19 09:20] LABS: BLOOD UREA NITROGEN 17 MG/DL (9-23); CARBON DIOXIDE LEVEL 33 MMOL/L (20-31); CHLORIDE LEVEL 108 MMOL/L (98-107); CREATININE FOR GFR 0.64 MG/DL (0.55-1.30); GLOMERULAR FILTRATION RATE > 60.0 (>51); GLUCOSE, FASTING 98 MG/DL (60-100); MAGNESIUM LEVEL 1.9 MG/DL (1.8-2.4); POTASSIUM SERUM 3.6 MMOL/L (3.5-5.1); SODIUM LEVEL 145 MMOL/L (136-145)
[2023-09-19 11:12] LABS: HEMATOCRIT 23.2 % (36.0-47.0); HEMOGLOBIN 7.3 g/dl (12.0-15.5)
[2023-09-19] MEDS: PANTOPRAZOLE 40MG VIAL IV SCH (11:34)
[2023-09-19 20:06] LABS: HEMATOCRIT 26.6 % (36.0-47.0); HEMOGLOBIN 8.6 g/dl (12.0-15.5)
[2023-09-20 02:35] LABS: BASO % 0.2 % (0.0-1.0); EOS # 0.1 10^3/uL (0.0-0.5); EOS % 0.8 % (0.0-3.0); HEMATOCRIT 26.5 % (36.0-47.0); HEMOGLOBIN 8.6 g/dl (12.0-15.5); LYMPH # 2.3 10^3/uL (1.5-5.0); LYMPH % 22.1 % (24.0-44.0); MEAN CORPUSCULAR HEMOGLOBIN 31.5 pg (27.0-33.0); MEAN CORPUSCULAR HGB CONC 32.5 g/dl (32.0-36.5); MEAN CORPUSCULAR VOLUME 97.1 fl (80.0-96.0); MONO % 9.6 % (2.0-8.0); NEUTROPHILS # 6.9 10^3/uL (1.5-8.5); NEUTROPHILS % 66.9 % (36.0-66.0); PLATELET COUNT, AUTOMATED 159 10^3/uL (150-450); RED BLOOD COUNT 2.73 10^6/uL (4.00-5.40); WHITE BLOOD COUNT 10.4 10^3/uL (4.0-10.0)
[2023-09-20 03:04] LABS: BLOOD UREA NITROGEN 20 MG/DL (9-23); CALCIUM LEVEL 9.2 MG/DL (8.5-10.1); CARBON DIOXIDE LEVEL 34 MMOL/L (20-31); CHLORIDE LEVEL 107 MMOL/L (98-107); CREATININE FOR GFR 0.73 MG/DL (0.55-1.30); GLOMERULAR FILTRATION RATE > 60.0 (>51); GLUCOSE, FASTING 96 MG/DL (60-100); MAGNESIUM LEVEL 1.6 MG/DL (1.8-2.4); POTASSIUM SERUM 4.3 MMOL/L (3.5-5.1); SODIUM LEVEL 143 MMOL/L (136-145)
[2023-09-20 04:16] VITALS: BP 98/70; TEMP 97.7; O2SAT 98
[2023-09-20] MEDS: DOCUSATE SOD LIQ 100MG/10ML UDC GT SCH (04:45)
[2023-09-20] MEDS ORDERED: BISACODYL 10MG SUPP PR SCH (04:45)
[2023-09-20] MEDS: MAG SULF 1GM/100ML (MAG RUN) 1 GM in IV 1 EA IV ONE (05:13)
[2023-09-20] MEDS: ONDANSETRON 4MG 2ML VIAL IV PRN (05:18)
[2023-09-20 05:56] LABS: BASO % 0.2 % (0.0-1.0); EOS # 0.1 10^3/uL (0.0-0.5); EOS % 0.7 % (0.0-3.0); HEMATOCRIT 25.3 % (36.0-47.0); HEMOGLOBIN 8.2 g/dl (12.0-15.5); LYMPH # 2.9 10^3/uL (1.5-5.0); LYMPH % 28.8 % (24.0-44.0); MEAN CORPUSCULAR HEMOGLOBIN 31.2 pg (27.0-33.0); MEAN CORPUSCULAR HGB CONC 32.4 g/dl (32.0-36.5); MEAN CORPUSCULAR VOLUME 96.2 fl (80.0-96.0); MONO # 0.9 10^3/uL (0.0-0.8); MONO % 9.1 % (2.0-8.0); NEUTROPHILS # 6.2 10^3/uL (1.5-8.5); NEUTROPHILS % 60.8 % (36.0-66.0); PLATELET COUNT, AUTOMATED 162 10^3/uL (150-450); RED BLOOD COUNT 2.63 10^6/uL (4.00-5.40); WHITE BLOOD COUNT 10.1 10^3/uL (4.0-10.0)
[2023-09-20 06:30] LABS: BLOOD UREA NITROGEN 18 MG/DL (9-23); CALCIUM LEVEL 8.9 MG/DL (8.5-10.1); CARBON DIOXIDE LEVEL 32 MMOL/L (20-31); CHLORIDE LEVEL 109 MMOL/L (98-107); GLOMERULAR FILTRATION RATE > 60.0 (>51); GLUCOSE, FASTING 85 MG/DL (60-100); MAGNESIUM LEVEL 1.6 MG/DL (1.8-2.4); POTASSIUM SERUM 4.3 MMOL/L (3.5-5.1); SODIUM LEVEL 146 MMOL/L (136-145)
[2023-09-20 06:31] LABS: IRON (FE) 66 UG/DL (50-170); PERCENT SATURATION 26.6 % (13.2-45.0); TOTAL IRON BINDING CAPACITY 248 UG/DL (250-425)
[2023-09-20 08:09] LABS: PROCALCITONIN 0.05 ng/ml
[2023-09-20] MEDS: CEFEPIME HCL 2 GM in D5W MINI-BAG PLUS 50 ML IV SCH ×2 (08:37→17:28)
[2023-09-20] MEDS: HYDROCORTISONE 100MG/2ML VIAL IV SCH ×2 (08:38→17:28)
[2023-09-20] MEDS: MAG SULF 1GM/100ML (MAG RUN) 1 GM in IV 1 EA IV SCH (09:36)
[2023-09-20] MEDS ORDERED: BACLOFEN 10 MG TAB JT PRN (09:40)
[2023-09-20] MEDS ORDERED: cefTRIAXone SOD 2 GM in D5W MINI-BAG PLUS 50 ML IV SCH (12:00)
[2023-09-20] MEDS: metroNIDAZOLE 500 MG in IV 1 EA IV SCH (12:39)
[2023-09-20 14:00] VITALS: BP_SYST 150; BP_SYST 91; BP_DIAS 52; BP_DIAS 71; TEMP 97.5; TEMP 97.9; O2SAT 96; O2SAT 97
[2023-09-20] MEDS: NS 1,000 ML IV ONE (15:04)
[2023-09-20 16:00] VITALS: BP 105/65
[2023-09-20 16:07] LABS: BLOOD UREA NITROGEN 19 MG/DL (9-23); CALCIUM LEVEL 8.7 MG/DL (8.5-10.1); CARBON DIOXIDE LEVEL 31 MMOL/L (20-31); CHLORIDE LEVEL 108 MMOL/L (98-107); CREATININE FOR GFR 0.76 MG/DL (0.55-1.30); GLOMERULAR FILTRATION RATE > 60.0 (>51); GLUCOSE, FASTING 97 MG/DL (60-100); MAGNESIUM LEVEL 2.6 MG/DL (1.8-2.4); POTASSIUM SERUM 4.2 MMOL/L (3.5-5.1); SODIUM LEVEL 145 MMOL/L (136-145)
[2023-09-20 20:10] VITALS: BP 116/79; TEMP 97.5; O2SAT 99
[2023-09-20] MEDS: METAMUCIL (PSYLLIUM) PACKET GT SCH (21:39)
[2023-09-21 06:00] VITALS: BP 110/71; TEMP 97.3; O2SAT 99
[2023-09-21 06:03] LABS: BASO % 0.1 % (0.0-1.0); EOS # 0.1 10^3/uL (0.0-0.5); EOS % 0.6 % (0.0-3.0); HEMATOCRIT 26.3 % (36.0-47.0); HEMOGLOBIN 8.3 g/dl (12.0-15.5); LYMPH # 2.4 10^3/uL (1.5-5.0); MEAN CORPUSCULAR HEMOGLOBIN 31.4 pg (27.0-33.0); MEAN CORPUSCULAR HGB CONC 31.6 g/dl (32.0-36.5); MEAN CORPUSCULAR VOLUME 99.6 fl (80.0-96.0); MONO # 0.8 10^3/uL (0.0-0.8); MONO % 8.4 % (2.0-8.0); NEUTROPHILS # 6.2 10^3/uL (1.5-8.5); NEUTROPHILS % 65.6 % (36.0-66.0); PLATELET COUNT, AUTOMATED 180 10^3/uL (150-450); RED BLOOD COUNT 2.64 10^6/uL (4.00-5.40); WHITE BLOOD COUNT 9.4 10^3/uL (4.0-10.0)
[2023-09-21 06:35] LABS: BLOOD UREA NITROGEN 19 MG/DL (9-23); CALCIUM LEVEL 9.1 MG/DL (8.5-10.1); CARBON DIOXIDE LEVEL 31 MMOL/L (20-31); CHLORIDE LEVEL 106 MMOL/L (98-107); CREATININE FOR GFR 0.71 MG/DL (0.55-1.30); GLOMERULAR FILTRATION RATE > 60.0 (>51); GLUCOSE, FASTING 91 MG/DL (60-100); MAGNESIUM LEVEL 2.2 MG/DL (1.8-2.4); POTASSIUM SERUM 4.4 MMOL/L (3.5-5.1); SODIUM LEVEL 140 MMOL/L (136-145)
[2023-09-21 14:00] VITALS: BP 108/72; TEMP 97.3; O2SAT 100
[2023-09-21 16:05] VITALS: BP 107/71
[2023-09-21 20:01] VITALS: BP 104/70; TEMP 96.8; O2SAT 100
[2023-09-21] MEDS: SOD POLYSTYRENE SULFONATE SUSP 15GM 60ML UD GT SCH (21:51)
[2023-09-22 05:39] VITALS: BP 104/68; TEMP 97.3; O2SAT 100
[2023-09-22 08:59] LABS: BASO % 0.1 % (0.0-1.0); EOS % 0.3 % (0.0-3.0); HEMATOCRIT 24.8 % (36.0-47.0); HEMOGLOBIN 7.8 g/dl (12.0-15.5); LYMPH # 1.8 10^3/uL (1.5-5.0); LYMPH % 23.8 % (24.0-44.0); MEAN CORPUSCULAR HGB CONC 31.5 g/dl (32.0-36.5); MEAN CORPUSCULAR VOLUME 98.4 fl (80.0-96.0); MONO # 0.5 10^3/uL (0.0-0.8); NEUTROPHILS # 5.1 10^3/uL (1.5-8.5); NEUTROPHILS % 68.3 % (36.0-66.0); PLATELET COUNT, AUTOMATED 205 10^3/uL (150-450); RED BLOOD COUNT 2.52 10^6/uL (4.00-5.40); WHITE BLOOD COUNT 7.4 10^3/uL (4.0-10.0)
[2023-09-22 09:27] LABS: BLOOD UREA NITROGEN 19 MG/DL (9-23); CALCIUM LEVEL 9.3 MG/DL (8.5-10.1); CARBON DIOXIDE LEVEL 28 MMOL/L (20-31); CHLORIDE LEVEL 108 MMOL/L (98-107); CREATININE FOR GFR 0.64 MG/DL (0.55-1.30); GLOMERULAR FILTRATION RATE > 60.0 (>51); GLUCOSE, FASTING 116 MG/DL (60-100); MAGNESIUM LEVEL 1.7 MG/DL (1.8-2.4); POTASSIUM SERUM 4.1 MMOL/L (3.5-5.1); SODIUM LEVEL 142 MMOL/L (136-145)
[2023-09-22 14:00] VITALS: BP 115/68; TEMP 97.7; O2SAT 100
[2023-09-22] MEDS: MAG SULF 1GM/100ML (MAG RUN) 1 GM in IV 1 EA IV SCH (15:31)
[2023-09-22 19:11] LABS: ADRENOCORTICOTROPHIC HORMONE 11.4 pg/mL (7.2-63.3); RENIN LEVEL 1.975 ng/mL/hr (0.167-5.380)
[2023-09-22 19:43] VITALS: BP 106/57; TEMP 97.9; O2SAT 99
[2023-09-23 04:15] VITALS: BP 103/69; TEMP 98.1; O2SAT 100
[2023-09-23 08:18] LABS: BASO % 0.1 % (0.0-1.0); EOS % 0.4 % (0.0-3.0); HEMATOCRIT 25.6 % (36.0-47.0); HEMOGLOBIN 7.9 g/dl (12.0-15.5); LYMPH # 2.7 10^3/uL (1.5-5.0); LYMPH % 29.5 % (24.0-44.0); MEAN CORPUSCULAR HEMOGLOBIN 31.2 pg (27.0-33.0); MEAN CORPUSCULAR HGB CONC 30.9 g/dl (32.0-36.5); MEAN CORPUSCULAR VOLUME 101.2 fl (80.0-96.0); MONO # 0.7 10^3/uL (0.0-0.8); MONO % 7.6 % (2.0-8.0); NEUTROPHILS # 5.6 10^3/uL (1.5-8.5); NEUTROPHILS % 61.6 % (36.0-66.0); PLATELET COUNT, AUTOMATED 239 10^3/uL (150-450); RED BLOOD COUNT 2.53 10^6/uL (4.00-5.40)
[2023-09-23 08:46] LABS: BLOOD UREA NITROGEN 16 MG/DL (9-23); CALCIUM LEVEL 8.9 MG/DL (8.5-10.1); CARBON DIOXIDE LEVEL 30 MMOL/L (20-31); CHLORIDE LEVEL 111 MMOL/L (98-107); CREATININE FOR GFR 0.74 MG/DL (0.55-1.30); GLOMERULAR FILTRATION RATE > 60.0 (>51); GLUCOSE, FASTING 97 MG/DL (60-100); MAGNESIUM LEVEL 1.9 MG/DL (1.8-2.4); POTASSIUM SERUM 4.3 MMOL/L (3.5-5.1); SODIUM LEVEL 145 MMOL/L (136-145)
[2023-09-23] MEDS: HYDROCORTISONE 100MG/2ML VIAL IV SCH (09:54)
[2023-09-23 11:22] VITALS: BP 110/68
[2023-09-23 12:03] LABS: PROCALCITONIN 0.21 ng/ml
[2023-09-23 20:12] VITALS: BP 108/67; TEMP 97.7; O2SAT 100
[2023-09-24 04:30] VITALS: BP 110/69; TEMP 97.2; O2SAT 100
[2023-09-24 07:11] LABS: BLOOD UREA NITROGEN 16 MG/DL (9-23); CALCIUM LEVEL 9.3 MG/DL (8.5-10.1); CARBON DIOXIDE LEVEL 31 MMOL/L (20-31); CHLORIDE LEVEL 108 MMOL/L (98-107); CREATININE FOR GFR 0.63 MG/DL (0.55-1.30); GLOMERULAR FILTRATION RATE > 60.0 (>51); GLUCOSE, FASTING 94 MG/DL (60-100); MAGNESIUM LEVEL 1.8 MG/DL (1.8-2.4); POTASSIUM SERUM 4.5 MMOL/L (3.5-5.1); SODIUM LEVEL 143 MMOL/L (136-145)
[2023-09-24] MEDS: HYDROCORTISONE 100MG/2ML VIAL IV SCH (09:07)
[2023-09-24 14:00] VITALS: BP 114/70; TEMP 97; O2SAT 100
[2023-09-24 20:00] VITALS: BP 130/69; TEMP 97.2; O2SAT 100
[2023-09-25 06:00] VITALS: BP 126/69; TEMP 97.2; O2SAT 100
[2023-09-25 07:08] LABS: BASO % 0.2 % (0.0-1.0); EOS # 0.1 10^3/uL (0.0-0.5); EOS % 0.6 % (0.0-3.0); HEMATOCRIT 29.1 % (36.0-47.0); HEMOGLOBIN 8.9 g/dl (12.0-15.5); LYMPH # 2.1 10^3/uL (1.5-5.0); LYMPH % 24.8 % (24.0-44.0); MEAN CORPUSCULAR HGB CONC 30.6 g/dl (32.0-36.5); MEAN CORPUSCULAR VOLUME 101.4 fl (80.0-96.0); MONO # 0.4 10^3/uL (0.0-0.8); MONO % 4.9 % (2.0-8.0); NEUTROPHILS # 5.7 10^3/uL (1.5-8.5); NEUTROPHILS % 68.5 % (36.0-66.0); PLATELET COUNT, AUTOMATED 295 10^3/uL (150-450); RED BLOOD COUNT 2.87 10^6/uL (4.00-5.40); WHITE BLOOD COUNT 8.4 10^3/uL (4.0-10.0)
[2023-09-25 07:38] LABS: BLOOD UREA NITROGEN 15 MG/DL (9-23); CALCIUM LEVEL 9.5 MG/DL (8.5-10.1); CARBON DIOXIDE LEVEL 32 MMOL/L (20-31); CHLORIDE LEVEL 109 MMOL/L (98-107); CREATININE FOR GFR 0.59 MG/DL (0.55-1.30); GLOMERULAR FILTRATION RATE > 60.0 (>51); GLUCOSE, FASTING 136 MG/DL (60-100); MAGNESIUM LEVEL 1.6 MG/DL (1.8-2.4); POTASSIUM SERUM 4.5 MMOL/L (3.5-5.1); SODIUM LEVEL 143 MMOL/L (136-145)
[2023-09-25] MEDS: MAG SULF 1GM/100ML (MAG RUN) 1 GM in IV 1 EA IV SCH (08:50)
[2023-09-25] MEDS: HYDROCORTISONE 100MG/2ML VIAL IV SCH ×2 (08:50→19:40)
[2023-09-25 14:00] VITALS: BP 119/69; TEMP 97.3; O2SAT 99
[2023-09-26 06:00] VITALS: BP 126/73; TEMP 97.3; O2SAT 100
[2023-09-26 06:41] LABS: BLOOD UREA NITROGEN 12 MG/DL (9-23); CALCIUM LEVEL 9.3 MG/DL (8.5-10.1); CARBON DIOXIDE LEVEL 32 MMOL/L (20-31); CHLORIDE LEVEL 111 MMOL/L (98-107); CREATININE FOR GFR 0.59 MG/DL (0.55-1.30); GLOMERULAR FILTRATION RATE > 60.0 (>51); GLUCOSE, FASTING 92 MG/DL (60-100); MAGNESIUM LEVEL 1.8 MG/DL (1.8-2.4); POTASSIUM SERUM 4.5 MMOL/L (3.5-5.1); SODIUM LEVEL 145 MMOL/L (136-145)
[2023-09-26] MEDS ORDERED: PANTOPRAZOLE 40MG TAB (PROTONIX) XX SCH (09:00)
[2023-09-26] MEDS: OMEPRAZOLE/SODIUM BICARB 20-840MG 10ML ORAL SYRINGE GT SCH (09:49)
[2023-09-26] MEDS ORDERED: HYDR-4468 JT (11:37)
[2023-09-26] MEDS ORDERED: LEVO75TA4 JT (11:37)
[2023-09-26] MEDS ORDERED: HYDROCORTISONE 10 MG TAB JT SCH (21:00)
== END 2023-09-26 14:44 | disposition home or self-care (01) | DRG 643 ==
LOC: M ED 17:59 → M ED INP 23:34 → M PCU 09-15 17:10 → OBSVTOIN 09-17 14:15 → M MSPAV 09-17 20:35
PROVIDERS: ADMIT Internal Medicine; ATTEND Student in an Organized Health Care Education/Training Program
PROC: 30233N1 Transfusion of Nonautologous Red Blood Cells into Peripheral Vein, Percutaneous Approach (ICD-10-PCS; principal; 2023-09-19)
PROC: B246ZZZ Ultrasonography of Right and Left Heart (ICD-10-PCS; 2023-09-22)
DX: E27.2 Addisonian crisis (principal); J69.0 Pneumonitis due to inhalation of food and vomit; J21.9 Acute bronchiolitis, unspecified; E87.4 Mixed disorder of acid-base balance; N39.0 Urinary tract infection, site not specified; E87.5 Hyperkalemia; B96.20 Unspecified Escherichia coli [E. coli] as the cause of diseases classified elsewhere; D69.6 Thrombocytopenia, unspecified; D64.9 Anemia, unspecified; I95.9 Hypotension, unspecified; I44.1 Atrioventricular block, second degree; E83.42 Hypomagnesemia; K31.84 Gastroparesis; R68.0 Hypothermia, not associated with low environmental temperature; E03.9 Hypothyroidism, unspecified; F79 Unspecified intellectual disabilities; E16.2 Hypoglycemia, unspecified; R13.10 Dysphagia, unspecified; R74.01 Elevation of levels of liver transaminase levels; Z98.41 Cataract extraction status, right eye; Z98.42 Cataract extraction status, left eye; Z79.890 Hormone replacement therapy; Z79.899 Other long term (current) drug therapy; Z93.2 Ileostomy status

== ENCOUNTER → 2023-09-14 | Outpatient (CLI) | payer MEDICARE, MEDICAID | LOC: M LAB 13:47 | PROVIDERS: ATTEND Registered Nurse | DX: E87.5 Hyperkalemia (principal); R79.89 Other specified abnormal findings of blood chemistry ==

== ENCOUNTER → 2023-10-03 | Outpatient (CLI) | payer MEDICARE, MEDICAID ==
[~2023-10-03] MED LIST changes: +FLUO-365 PO; -FLUO20CA22 PO; +HYDR-4468 JT; +LEVO75TA4 JT
[2023-10-03 11:00] LABS: BLOOD UREA NITROGEN 20 MG/DL (9-23); CALCIUM LEVEL 10.3 MG/DL (8.5-10.1); CARBON DIOXIDE LEVEL 31 MMOL/L (20-31); CHLORIDE LEVEL 110 MMOL/L (98-107); CREATININE FOR GFR 0.54 MG/DL (0.55-1.30); GLOMERULAR FILTRATION RATE > 60.0 (>51); GLUCOSE, FASTING 67 MG/DL (60-100); MAGNESIUM LEVEL 1.6 MG/DL (1.8-2.4); POTASSIUM SERUM 5.5 MMOL/L (3.5-5.1); SODIUM LEVEL 144 MMOL/L (136-145)
== END ==
LOC: M LAB 08:50
PROVIDERS: ATTEND Registered Nurse
DX: E63.9 Nutritional deficiency, unspecified (principal)

== ENCOUNTER 2023-10-09 07:02 | Inpatient (IN) | payer MEDICARE, MEDICAID ==
[~2023-10-09] VITALS: Ht 162.6 cm; Wt 61.2 kg
[2023-10-09] VITALS (47 sets, daily range): BP systolic 85–123; BP diastolic 50–94; TEMP 97–97.5; O2SAT 95–99
[~2023-10-09 07:02] MED LIST changes: +FLUO-365 JT; -FLUO-365 PO; -SIME40DR31 PO; +SODI15SS JT; -SODI15SS PO
[2023-10-09 07:34] LABS: VENOUS BASE EXCESS -12.1 (-2.0-2.0); VENOUS HCO3 15.6 MMOL/L (23.0-27.0); VENOUS O2 SATURATION 94.1 % (60.0-80.0); VENOUS PARTIAL PRESSURE CO2 42.4 mmHg (38.0-50.0); VENOUS PARTIAL PRESSURE O2 78.8 mmHg (30.0-50.0); VENOUS PH 7.185 UNITS (7.330-7.430)
[2023-10-09] MEDS ORDERED: NS 1,000 ML IV ONE (07:35)
[2023-10-09 08:00] LABS: CK-MB VALUE MASS 7.1 NG/ML (<3.6)
[2023-10-09 08:01] LABS: ETHYL ALCOHOL (ETHANOL) < 0.003 % (0.000-0.010)
[2023-10-09 08:02] LABS: AMYLASE 202 U/L (30-118); SALICYLATE LEVEL < 3.0 MG/DL (<30)
[2023-10-09] MEDS: NS 1,000 ML IV ONE ×3 (08:02→14:27)
[2023-10-09] MEDS: LIDOCAINE 2% 5ML JELLY UROJET TOP ONE ×2 (08:02→08:35)
[2023-10-09 08:03] LABS: CPK CREATINE PHOSPHOKINASE 76 U/L (34-145); MB/CK RELATIVE INDEX 9.34 (< OR =4)
[2023-10-09 08:05] LABS: THYROID STIMULATING HORMONE 0.335 uIU/ML (0.55-4.78)
[2023-10-09 08:10] LABS: INR 1.1; PARTIAL THROMBOPLASTIN TIME 45.8 SECONDS (24.8-34.2); PROTHROMBIN TIME 13.9 SECONDS (12.5-14.5)
[2023-10-09 08:24] LABS: ABG BASE EXCESS -14.4 (-2.0-2.0); ABG O2 SATURATION 95.8 % (95.0-99.0); ABG PARTIAL PRESSURE CO2 35.8 mmHg (35.0-45.0); ABG PARTIAL PRESSURE O2 89.9 mmHg (75.0-100.0); ABG STANDARD HCO3 13.3 MMOL/L. (22.0-26.0); ABG TOTAL CO2 14.1 MMOL/L (22.0-29.0)
[2023-10-09 08:25] LABS: ALBUMIN 3.5 G/DL (3.2-5.2); ALKALINE PHOSPHATASE 384 U/L (46-116); ALT/SGPT 157 U/L (7.0-40); AST/SGOT 68 U/L (<34); BILIRUBIN,DIRECT < 0.1 MG/DL (<0.4); BILIRUBIN,TOTAL 0.2 MG/DL (0.3-1.2); BLOOD UREA NITROGEN 81 MG/DL (9-23); CALCIUM LEVEL 10.8 MG/DL (8.5-10.1); CARBON DIOXIDE LEVEL 17 MMOL/L (20-31); CHLORIDE LEVEL 112 MMOL/L (98-107); CREATININE FOR GFR 1.46 MG/DL (0.55-1.30); GLOMERULAR FILTRATION RATE 39.9 (>51); GLUCOSE, FASTING 87 MG/DL (60-100); POTASSIUM SERUM 7.4 MMOL/L (3.5-5.1); SODIUM LEVEL 136 MMOL/L (136-145); TOTAL PROTEIN 8.4 G/DL (5.7-8.2)
[2023-10-09 08:26] LABS: ABG pH (ARTERIAL) 7.177 UNITS (7.350-7.450)
[2023-10-09 08:30] LABS: BASO % 0.1 % (0.0-1.0); HEMOGLOBIN 11.3 g/dl (12.0-15.5); LYMPH # 0.5 10^3/uL (1.5-5.0); LYMPH % 5.4 % (24.0-44.0); MEAN CORPUSCULAR HEMOGLOBIN 31.5 pg (27.0-33.0); MEAN CORPUSCULAR HGB CONC 30.5 g/dl (32.0-36.5); MEAN CORPUSCULAR VOLUME 103.1 fl (80.0-96.0); MONO # 0.8 10^3/uL (0.0-0.8); NEUTROPHILS # 8.3 10^3/uL (1.5-8.5); NEUTROPHILS % 86.3 % (36.0-66.0); PLATELET COUNT, AUTOMATED 206 10^3/uL (150-450); RED BLOOD COUNT 3.59 10^6/uL (4.00-5.40); WHITE BLOOD COUNT 9.6 10^3/uL (4.0-10.0)
[2023-10-09] MEDS: PATIROMER SORBITEX CALCIUM 8.4 GM POWDER PACKET (VELTASSA) PO ONE ×3 (08:30→22:55)
[2023-10-09] MEDS ORDERED: ISOVUE-370 76% 100ML VIAL As Ordered ONE (08:39)
[2023-10-09] MEDS: PIPERACILLIN/TAZOBACTAM SOD 4.5 GM in D5W MINI-BAG PLUS 50 ML IV ONE (08:43)
[2023-10-09] MEDS: ALBUTEROL SULFATE 2.5MG/0.5ML INH NEB SOLN INH ONE (08:56)
[2023-10-09] MEDS: CALCIUM GLUCONATE 1,000MG/10ML VIAL (100MG/ML) IV ONE (09:13)
[2023-10-09] MEDS: SODIUM BICARBONATE 8.4% INJ 50ML SYRINGE IV ONE (09:13)
[2023-10-09] MEDS: DEXTROSE 50% 50ML SYRINGE IV ONE (09:13)
[2023-10-09] MEDS: HumuLIN R (REGULAR) INSULIN (NovoLIN R) **100U/ML** PER UNIT IV ONE (09:14)
[2023-10-09] MEDS ORDERED: LEVO75TA4 JT (09:20)
[2023-10-09] MEDS ORDERED: JEVILIQ12 JT (09:22)
[2023-10-09] MEDS ORDERED: HOME MED LIST COMPLETE! XX SCH (09:25)
[2023-10-09 09:28] LABS: CK-MB VALUE MASS 7.5 NG/ML (<3.6)
[2023-10-09 09:30] LABS: MB/CK RELATIVE INDEX 11.9 (< OR =4)
[2023-10-09 09:48] LABS: FREE T4 1.15 NG/DL (0.89-1.76)
[2023-10-09] MEDS: NOREPINEPHRINE 4MG IN D5 250ML 4 MG in IV 1 EA IV SCH ×2 (09:55→10:00)
[2023-10-09] MEDS ORDERED: GLUCAGON INJ 1MG VIAL SC PRN (10:15)
[2023-10-09] MEDS ORDERED: GLUCOSE 4 GM CHEW PO PRN (10:15)
[2023-10-09] MEDS: HYDROCORTISONE 100MG/2ML VIAL IV STA (10:37)
[2023-10-09 10:59] LABS: CALCIUM LEVEL 9.8 MG/DL (8.5-10.1); CREATININE FOR GFR 1.31 MG/DL (0.55-1.30); GLOMERULAR FILTRATION RATE 45.2 (>51); POTASSIUM SERUM 5.9 MMOL/L (3.5-5.1)
[2023-10-09] MEDS ORDERED: PATIROMER SORBITEX CALCIUM 8.4 GM POWDER PACKET (VELTASSA) XX STA (11:15)
[2023-10-09] MEDS ORDERED: CALCIUM GLUCONATE 1,000 MG in D5W MINI-BAG PLUS 100 ML IV STA (11:15)
[2023-10-09] MEDS ORDERED: DEXTROSE 50% 50ML SYRINGE IV STA (11:17)
[2023-10-09] MEDS: DEXTROSE 50% 50ML SYRINGE IV PRN (11:27)
[2023-10-09] MEDS: NS 790 ML in IV 1 EA IV ONE (11:30)
[2023-10-09] MEDS: CALCIUM GLUCONATE 1,000 MG in D5W MINI-BAG PLUS 100 ML IV STA (12:31)
[2023-10-09] MEDS: PANTOPRAZOLE 40MG VIAL IV SCH (12:33)
[2023-10-09] MEDS: D5W/0.9% SODIUM CHLORIDE 1,000 ML IV SCH (12:34)
[2023-10-09] MEDS: HumuLIN R (REGULAR) INSULIN (NovoLIN R) **100U/ML** PER UNIT SC STA (12:34)
[2023-10-09] MEDS: FOLIC ACID 1MG TAB GT SCH (13:20)
[2023-10-09] MEDS: LEVOTHYROXINE 100MCG (0.1MG) 5ML SDV PF (SOLUTION FORM) IV SCH (13:22)
[2023-10-09] MEDS: FLUoxetine 20MG CAP GT SCH (13:23)
[2023-10-09] MEDS: LORazepam 0.5 MG TAB GT SCH (15:25)
[2023-10-09] MEDS: SIMETHICONE 40MG/0.6ML DROPS 30ML GT SCH (15:25)
[2023-10-09] MEDS: PIPERACILLIN/TAZOBACTAM SOD 4.5 GM in D5W MINI-BAG PLUS 50 ML IV SCH (15:25)
[2023-10-09 15:31] LABS: CALCIUM LEVEL 9.8 MG/DL (8.5-10.1); CREATININE FOR GFR 1.04 MG/DL (0.55-1.30); POTASSIUM SERUM 6.6 MMOL/L (3.5-5.1)
[2023-10-09] MEDS: DEXTROSE 50% 50ML SYRINGE IV STA ×2 (15:51→21:59)
[2023-10-09] MEDS: HumuLIN R (REGULAR) INSULIN (NovoLIN R) **100U/ML** PER UNIT IV STA ×2 (15:51→22:01)
[2023-10-09] MEDS: CALCIUM GLUCONATE 1,000 MG in D5W MINI-BAG PLUS 100 ML IV ONE ×2 (15:52→22:24)
[2023-10-09] MEDS ORDERED: HYDROCORTISONE 100MG/2ML VIAL IV SCH (17:00)
[2023-10-09] MEDS: HYDROCORTISONE 100MG/2ML VIAL IV SCH (17:03)
[2023-10-09 20:12] LABS: BLOOD UREA NITROGEN 48 MG/DL (9-23); CALCIUM LEVEL 9.6 MG/DL (8.5-10.1); CARBON DIOXIDE LEVEL 18 MMOL/L (20-31); CHLORIDE LEVEL 116 MMOL/L (98-107); CREATININE FOR GFR 0.91 MG/DL (0.55-1.30); GLOMERULAR FILTRATION RATE > 60.0 (>51); GLUCOSE, FASTING 80 MG/DL (60-100); POTASSIUM SERUM 7.9 MMOL/L (3.5-5.1); SODIUM LEVEL 140 MMOL/L (136-145)
[2023-10-09] MEDS: RISPERIDONE 1 MG TAB GT SCH (20:59)
[2023-10-09] MEDS: HEPARIN SOD (PORCINE) 5000UNITS/ML 1ML VIAL/SYRINGE SC SCH (20:59)
[2023-10-09] MEDS: BACLOFEN 10 MG TAB GT SCH (20:59)
[2023-10-09] MEDS: MONTELUKAST 10 MG TAB GT SCH (20:59)
[2023-10-09] MEDS: TOPIRAMATE (TopAMAX) 25 MG TAB GT SCH (21:00)
[2023-10-10] VITALS (80 sets, daily range): BP systolic 81–109; BP diastolic 46–67; TEMP 97.1–99.5; O2SAT 93–100
[2023-10-10 01:45] LABS: BLOOD UREA NITROGEN 40 MG/DL (9-23); CALCIUM LEVEL 10.1 MG/DL (8.5-10.1); CARBON DIOXIDE LEVEL 21 MMOL/L (20-31); CHLORIDE LEVEL 117 MMOL/L (98-107); CREATININE FOR GFR 0.92 MG/DL (0.55-1.30); GLOMERULAR FILTRATION RATE > 60.0 (>51); GLUCOSE, FASTING 83 MG/DL (60-100); POTASSIUM SERUM 6.8 MMOL/L (3.5-5.1); SODIUM LEVEL 141 MMOL/L (136-145)
[2023-10-10] MEDS: DEXTROSE 50% 50ML SYRINGE IV STA (02:06)
[2023-10-10] MEDS: HumuLIN R (REGULAR) INSULIN (NovoLIN R) **100U/ML** PER UNIT IV STA (02:08)
[2023-10-10] MEDS: LORazepam 2 MG/ML 1ML VIAL IV STA (04:46)
[2023-10-10 05:57] LABS: ALBUMIN 2.5 G/DL (3.2-5.2); ALKALINE PHOSPHATASE 331 U/L (46-116); ALT/SGPT 122 U/L (7.0-40); AST/SGOT 79 U/L (<34); BILIRUBIN,TOTAL 0.3 MG/DL (0.3-1.2); BLOOD UREA NITROGEN 38 MG/DL (9-23); CALCIUM LEVEL 10.1 MG/DL (8.5-10.1); CARBON DIOXIDE LEVEL 18 MMOL/L (20-31); CHLORIDE LEVEL 115 MMOL/L (98-107); CREATININE FOR GFR 0.91 MG/DL (0.55-1.30); GLOMERULAR FILTRATION RATE > 60.0 (>51); GLUCOSE, FASTING 67 MG/DL (60-100); MAGNESIUM LEVEL 1.4 MG/DL (1.8-2.4); POTASSIUM SERUM 6.4 MMOL/L (3.5-5.1); SODIUM LEVEL 139 MMOL/L (136-145)
[2023-10-10 06:05] LABS: TOTAL PROTEIN 5.8 G/DL (5.7-8.2)
[2023-10-10] MEDS: FUROSEMIDE 20MG/2ML VIAL IV ONE (06:12)
[2023-10-10] MEDS: NS 500 ML IV ONE (06:12)
[2023-10-10 06:19] LABS: PHOSPHORUS LEVEL 2.9 MG/DL (2.5-4.9)
[2023-10-10] MEDS: MAG SULF 1GM/100ML (MAG RUN) 1 GM in IV 1 EA IV SCH (08:52)
[2023-10-10 08:59] LABS: VENOUS BASE EXCESS -5.8 (-2.0-2.0); VENOUS HCO3 19.4 MMOL/L (23.0-27.0); VENOUS O2 SATURATION 98.8 % (60.0-80.0); VENOUS PARTIAL PRESSURE CO2 37.1 mmHg (38.0-50.0); VENOUS PARTIAL PRESSURE O2 146.4 mmHg (30.0-50.0); VENOUS PH 7.337 UNITS (7.330-7.430); VENOUS STANDARD HCO3 19.7 MMOL/L; VENOUS TOTAL CO2 20.6 MMOL/L (24.0-28.0)
[2023-10-10 09:41] LABS: BLOOD UREA NITROGEN 38 MG/DL (9-23); CALCIUM LEVEL 9.8 MG/DL (8.5-10.1); CARBON DIOXIDE LEVEL 23 MMOL/L (20-31); CHLORIDE LEVEL 116 MMOL/L (98-107); CREATININE FOR GFR 0.98 MG/DL (0.55-1.30); GLOMERULAR FILTRATION RATE > 60.0 (>51); GLUCOSE, FASTING 116 MG/DL (60-100); POTASSIUM SERUM 5.8 MMOL/L (3.5-5.1); SODIUM LEVEL 144 MMOL/L (136-145)
[2023-10-10] MEDS: LR 1,000 ML IV SCH (10:19)
[2023-10-10] MEDS: CALCIUM GLUCONATE 1,000 MG in D5W MINI-BAG PLUS 100 ML IV ONE (21:15)
[2023-10-10] MEDS: HYDROCORTISONE 100MG/2ML VIAL IV SCH (21:15)
[2023-10-10] MEDS: SODIUM BICARBONATE 75 MEQ in NS 0.45% 1,000 ML IV SCH (21:16)
[2023-10-11] VITALS (10 sets, daily range): BP systolic 101–121; BP diastolic 63–79; TEMP 97.2–98; O2SAT 97–100
[2023-10-11 01:05] LABS: BLOOD UREA NITROGEN 32 MG/DL (9-23); CALCIUM LEVEL 9.3 MG/DL (8.5-10.1); CARBON DIOXIDE LEVEL 26 MMOL/L (20-31); CHLORIDE LEVEL 113 MMOL/L (98-107); CREATININE FOR GFR 0.84 MG/DL (0.55-1.30); GLOMERULAR FILTRATION RATE > 60.0 (>51); GLUCOSE, FASTING 104 MG/DL (60-100); MAGNESIUM LEVEL 1.6 MG/DL (1.8-2.4); POTASSIUM SERUM 5.1 MMOL/L (3.5-5.1); SODIUM LEVEL 143 MMOL/L (136-145)
[2023-10-11] MEDS: MAG SULF 1GM/100ML (MAG RUN) 1 GM in IV 1 EA IV ONE (01:21)
[2023-10-11 05:17] LABS: ALBUMIN 2.3 G/DL (3.2-5.2); ALKALINE PHOSPHATASE 291 U/L (46-116); ALT/SGPT 116 U/L (7.0-40); AST/SGOT 67 U/L (<34); BILIRUBIN,TOTAL 0.2 MG/DL (0.3-1.2); BLOOD UREA NITROGEN 29 MG/DL (9-23); CALCIUM LEVEL 9.3 MG/DL (8.5-10.1); CARBON DIOXIDE LEVEL 28 MMOL/L (20-31); CHLORIDE LEVEL 112 MMOL/L (98-107); CREATININE FOR GFR 0.83 MG/DL (0.55-1.30); GLOMERULAR FILTRATION RATE > 60.0 (>51); GLUCOSE, FASTING 95 MG/DL (60-100); MAGNESIUM LEVEL 1.9 MG/DL (1.8-2.4); PHOSPHORUS LEVEL 3.1 MG/DL (2.5-4.9); POTASSIUM SERUM 4.7 MMOL/L (3.5-5.1); SODIUM LEVEL 144 MMOL/L (136-145); TOTAL PROTEIN 5.8 G/DL (5.7-8.2)
[2023-10-11] MEDS ORDERED: HYDROCORTISONE 100MG/2ML VIAL IV SCH (09:00)
[2023-10-11] MEDS: LEVOTHYROXINE 100MCG (0.1MG) 5ML SDV PF (SOLUTION FORM) IV SCH (09:32)
[2023-10-11] MEDS: ENOXAPARIN 40MG/0.4ML SYRINGE (J1650 PER 10MG) SC SCH (09:32)
[2023-10-11] MEDS: PATIROMER SORBITEX CALCIUM 8.4 GM POWDER PACKET (VELTASSA) PO ONE (14:08)
[2023-10-11 15:56] LABS: BLOOD UREA NITROGEN 26 MG/DL (9-23); CALCIUM LEVEL 8.8 MG/DL (8.5-10.1); CARBON DIOXIDE LEVEL 29 MMOL/L (20-31); CHLORIDE LEVEL 109 MMOL/L (98-107); CREATININE FOR GFR 0.78 MG/DL (0.55-1.30); GLOMERULAR FILTRATION RATE > 60.0 (>51); GLUCOSE, FASTING 123 MG/DL (60-100); SODIUM LEVEL 145 MMOL/L (136-145)
[2023-10-12 04:27] VITALS: BP 118/81; TEMP 97.9; O2SAT 98
[2023-10-12 09:55] LABS: ALBUMIN 2.3 G/DL (3.2-5.2); ALKALINE PHOSPHATASE 278 U/L (46-116); ALT/SGPT 98 U/L (7.0-40); AST/SGOT 44 U/L (<34); BILIRUBIN,TOTAL < 0.2 MG/DL (0.3-1.2); BLOOD UREA NITROGEN 23 MG/DL (9-23); CALCIUM LEVEL 9.4 MG/DL (8.5-10.1); CARBON DIOXIDE LEVEL 30 MMOL/L (20-31); CHLORIDE LEVEL 110 MMOL/L (98-107); CREATININE FOR GFR 0.81 MG/DL (0.55-1.30); GLOMERULAR FILTRATION RATE > 60.0 (>51); GLUCOSE, FASTING 107 MG/DL (60-100); MAGNESIUM LEVEL 1.5 MG/DL (1.8-2.4); PHOSPHORUS LEVEL 2.4 MG/DL (2.5-4.9); POTASSIUM SERUM 4.3 MMOL/L (3.5-5.1); SODIUM LEVEL 145 MMOL/L (136-145); TOTAL PROTEIN 5.7 G/DL (5.7-8.2)
[2023-10-12 10:03] VITALS: BP 113/71
[2023-10-12] MEDS: AUGMENTIN 875 MG TAB GT SCH (10:03)
[2023-10-12] MEDS: MIDODRINE 5 MG TAB GT SCH (10:03)
[2023-10-12] MEDS: MAG SULF 1GM/100ML (MAG RUN) 1 GM in IV 1 EA IV SCH (11:13)
[2023-10-12 12:00] VITALS: BP 112/69; TEMP 97.9; O2SAT 99
[2023-10-12] MEDS: MAGNESIUM OXIDE 400MG TAB (MAG-OX) GT SCH (13:18)
[2023-10-12 16:46] VITALS: BP 113/70
[2023-10-12] MEDS: HYDROCORTISONE 100MG/2ML VIAL IV SCH (16:47)
[2023-10-12 19:40] VITALS: BP 126/82; TEMP 98.1; O2SAT 99
[2023-10-13 04:35] VITALS: BP 127/81; TEMP 97.9; O2SAT 97
[2023-10-13] MEDS: LEVOTHYROXINE 50MCG TABLET (0.05MG) GT SCH (05:41)
[2023-10-13 05:46] LABS: BASO % 0.2 % (0.0-1.0); EOS # 0.1 10^3/uL (0.0-0.5); EOS % 0.9 % (0.0-3.0); HEMATOCRIT 26.6 % (36.0-47.0); HEMOGLOBIN 8.3 g/dl (12.0-15.5); LYMPH # 2.9 10^3/uL (1.5-5.0); LYMPH % 36.2 % (24.0-44.0); MEAN CORPUSCULAR HGB CONC 31.2 g/dl (32.0-36.5); MEAN CORPUSCULAR VOLUME 102.7 fl (80.0-96.0); MONO # 0.6 10^3/uL (0.0-0.8); MONO % 7.8 % (2.0-8.0); NEUTROPHILS # 4.3 10^3/uL (1.5-8.5); PLATELET COUNT, AUTOMATED 130 10^3/uL (150-450); RED BLOOD COUNT 2.59 10^6/uL (4.00-5.40)
[2023-10-13 06:17] LABS: ALBUMIN 2.4 G/DL (3.2-5.2); ALKALINE PHOSPHATASE 287 U/L (46-116); ALT/SGPT 90 U/L (7.0-40); AST/SGOT 36 U/L (<34); BILIRUBIN,TOTAL 0.2 MG/DL (0.3-1.2); BLOOD UREA NITROGEN 20 MG/DL (9-23); CALCIUM LEVEL 9.3 MG/DL (8.5-10.1); CARBON DIOXIDE LEVEL 30 MMOL/L (20-31); CHLORIDE LEVEL 110 MMOL/L (98-107); CREATININE FOR GFR 0.72 MG/DL (0.55-1.30); GLOMERULAR FILTRATION RATE > 60.0 (>51); GLUCOSE, FASTING 82 MG/DL (60-100); MAGNESIUM LEVEL 1.8 MG/DL (1.8-2.4); POTASSIUM SERUM 4.4 MMOL/L (3.5-5.1); SODIUM LEVEL 144 MMOL/L (136-145); TOTAL PROTEIN 6.1 G/DL (5.7-8.2)
[2023-10-13 08:33] VITALS: BP 123/80
[2023-10-13] MEDS ORDERED: MIDODRINE 5 MG TAB PO ONE (08:50)
[2023-10-13] MEDS: MIDODRINE 5 MG TAB GT SCH (12:00)
[2023-10-13 12:12] VITALS: BP 134/75
[2023-10-13] MEDS ORDERED: ACETAMINOPHEN TAB 650MG DOSE (2X325MG) GT PRN (14:45)
[2023-10-13] MEDS: FIORICET TAB GT ONE (14:57)
[2023-10-13 20:00] VITALS: BP 131/74; TEMP 98.6; O2SAT 95
[2023-10-13] MEDS: ACETAMINOPHEN 325MG/10.15ML UDC GT PRN (22:32)
[2023-10-14] MEDS: NORCO, ANEXSIA 5/325MG TABLET (HYDROcodone/ACETAMINOPHEN) PO ONE (01:14)
[2023-10-14 04:00] VITALS: BP 130/83; TEMP 98.8; O2SAT 94
[2023-10-14 06:24] LABS: BASO % 0.4 % (0.0-1.0); EOS # 0.1 10^3/uL (0.0-0.5); EOS % 1.4 % (0.0-3.0); HEMATOCRIT 27.1 % (36.0-47.0); HEMOGLOBIN 8.4 g/dl (12.0-15.5); LYMPH # 3.2 10^3/uL (1.5-5.0); LYMPH % 40.6 % (24.0-44.0); MEAN CORPUSCULAR HEMOGLOBIN 31.9 pg (27.0-33.0); MONO # 0.6 10^3/uL (0.0-0.8); MONO % 7.8 % (2.0-8.0); NEUTROPHILS # 3.7 10^3/uL (1.5-8.5); NEUTROPHILS % 47.3 % (36.0-66.0); PLATELET COUNT, AUTOMATED 157 10^3/uL (150-450); RED BLOOD COUNT 2.63 10^6/uL (4.00-5.40); WHITE BLOOD COUNT 7.9 10^3/uL (4.0-10.0)
[2023-10-14 06:43] LABS: ALBUMIN 2.5 G/DL (3.2-5.2); ALKALINE PHOSPHATASE 271 U/L (46-116); ALT/SGPT 82 U/L (7.0-40); AST/SGOT 42 U/L (<34); BILIRUBIN,TOTAL 0.2 MG/DL (0.3-1.2); BLOOD UREA NITROGEN 19 MG/DL (9-23); CALCIUM LEVEL 9.4 MG/DL (8.5-10.1); CARBON DIOXIDE LEVEL 28 MMOL/L (20-31); CHLORIDE LEVEL 107 MMOL/L (98-107); CREATININE FOR GFR 0.67 MG/DL (0.55-1.30); GLOMERULAR FILTRATION RATE > 60.0 (>51); GLUCOSE, FASTING 94 MG/DL (60-100); MAGNESIUM LEVEL 1.6 MG/DL (1.8-2.4); POTASSIUM SERUM 4.2 MMOL/L (3.5-5.1); SODIUM LEVEL 142 MMOL/L (136-145); TOTAL PROTEIN 6.1 G/DL (5.7-8.2)
[2023-10-14] MEDS ORDERED: AMOX875T2 GT (09:52)
[2023-10-14 12:00] VITALS: BP 105/73; TEMP 98.2; O2SAT 97
[2023-10-14] MEDS: ARTIFICIAL TEARS DROPS 15ML BTL (VISINE DRY RELIEF) OU SCH (18:11)
[2023-10-14 20:00] VITALS: BP 121/64; TEMP 99.3; O2SAT 98
[2023-10-14 21:20] VITALS: TEMP 100
[2023-10-14 23:19] VITALS: TEMP 98.2
[2023-10-15 04:00] VITALS: BP 126/77; TEMP 98.2; O2SAT 84
[2023-10-15] MEDS ORDERED: VISISOL2 OU (10:44)
[2023-10-15] MEDS ORDERED: OPTI0.5D2 OP (10:44)
[2023-10-15] MEDS ORDERED: TETRAHYDROZOLINE OPHTH 0.05% 15 ML BTL OU PRN (10:45)
[2023-10-15 12:00] VITALS: BP 121/77; TEMP 98.8; O2SAT 96
== END 2023-10-15 12:02 | disposition home or self-care (01) | DRG 871 ==
LOC: M ED 07:02 → M ED INP 09:54 → M ICU 11:57 → M MSPAV 10-11 10:47
PROVIDERS: ADMIT Internal Medicine Pulmonary Disease; ATTEND General Practice
DX: A41.9 Sepsis, unspecified organism (principal); R65.21 Severe sepsis with septic shock; G93.41 Metabolic encephalopathy; J69.0 Pneumonitis due to inhalation of food and vomit; E87.20 Acidosis, unspecified; N17.9 Acute kidney failure, unspecified; E27.2 Addisonian crisis; N39.0 Urinary tract infection, site not specified; F79 Unspecified intellectual disabilities; K21.9 Gastro-esophageal reflux disease without esophagitis; R13.10 Dysphagia, unspecified; D50.9 Iron deficiency anemia, unspecified; F39 Unspecified mood [affective] disorder; R74.01 Elevation of levels of liver transaminase levels; E78.5 Hyperlipidemia, unspecified; E16.2 Hypoglycemia, unspecified; E03.9 Hypothyroidism, unspecified; E83.42 Hypomagnesemia; G89.4 Chronic pain syndrome; E87.5 Hyperkalemia; Z79.890 Hormone replacement therapy; Z79.899 Other long term (current) drug therapy; Z93.2 Ileostomy status; Z93.1 Gastrostomy status

== ENCOUNTER → 2023-10-23 | Outpatient (REF) | payer MEDICARE, MEDICAID ==
[~2023-10-23] MED LIST changes: +AMOX875T2 GT; +JEVILIQ12 JT; +OPTI0.5D2 OP; +VISISOL2 OU
[2023-10-23 12:43] LABS: ALBUMIN 3.5 G/DL (3.2-5.2); ALKALINE PHOSPHATASE 490 U/L (46-116); ALT/SGPT 163 U/L (7.0-40); AST/SGOT 102 U/L (<34); BILIRUBIN,TOTAL < 0.2 MG/DL (0.3-1.2); BLOOD UREA NITROGEN 26 MG/DL (9-23); CALCIUM LEVEL 10.2 MG/DL (8.5-10.1); CARBON DIOXIDE LEVEL 30 MMOL/L (20-31); CHLORIDE LEVEL 106 MMOL/L (98-107); CREATININE FOR GFR 0.59 MG/DL (0.55-1.30); GLOMERULAR FILTRATION RATE > 60.0 (>51); GLUCOSE, FASTING 81 MG/DL (60-100); MAGNESIUM LEVEL 1.9 MG/DL (1.8-2.4); POTASSIUM SERUM 4.7 MMOL/L (3.5-5.1); SODIUM LEVEL 138 MMOL/L (136-145); TOTAL PROTEIN 7.8 G/DL (5.7-8.2)
== END ==
LOC: M LABWUC 11:31
PROVIDERS: ATTEND Registered Nurse
DX: E87.5 Hyperkalemia (principal)

== ENCOUNTER → 2023-10-31 | Outpatient (CLI) | payer MEDICARE, MEDICAID ==
[2023-10-31 11:55] LABS: ALBUMIN 3.4 G/DL (3.2-5.2); ALKALINE PHOSPHATASE 478 U/L (46-116); ALT/SGPT 245 U/L (7.0-40); AST/SGOT 153 U/L (<34); BILIRUBIN,TOTAL < 0.2 MG/DL (0.3-1.2); BLOOD UREA NITROGEN 30 MG/DL (9-23); CALCIUM LEVEL 10.7 MG/DL (8.5-10.1); CARBON DIOXIDE LEVEL 27 MMOL/L (20-31); CHLORIDE LEVEL 108 MMOL/L (98-107); GLOMERULAR FILTRATION RATE > 60.0 (>51); GLUCOSE, FASTING 81 MG/DL (60-100); MAGNESIUM LEVEL 1.8 MG/DL (1.8-2.4); POTASSIUM SERUM 4.6 MMOL/L (3.5-5.1); SODIUM LEVEL 141 MMOL/L (136-145); TOTAL PROTEIN 7.9 G/DL (5.7-8.2)
[2023-10-31 11:58] LABS: FREE T4 1.06 NG/DL (0.89-1.76); THYROID STIMULATING HORMONE 0.277 uIU/ML (0.55-4.78)
[2023-10-31 12:00] LABS: FREE T3 4.1 PG/ML (2.3-4.2)
== END ==
LOC: M WUC 08:11
PROVIDERS: ATTEND Registered Nurse
DX: E87.5 Hyperkalemia (principal); E03.9 Hypothyroidism, unspecified

== ENCOUNTER → 2023-11-01 | Outpatient (CLI) | payer MEDICARE, MEDICAID ==
[2023-11-01 09:59] LABS: ALBUMIN 3.4 G/DL (3.2-5.2); ALKALINE PHOSPHATASE 465 U/L (46-116); ALT/SGPT 251 U/L (7.0-40); AST/SGOT 153 U/L (<34); BILIRUBIN,TOTAL < 0.2 MG/DL (0.3-1.2); BLOOD UREA NITROGEN 31 MG/DL (9-23); CALCIUM LEVEL 10.4 MG/DL (8.5-10.1); CARBON DIOXIDE LEVEL 26 MMOL/L (20-31); CHLORIDE LEVEL 107 MMOL/L (98-107); CREATININE FOR GFR 0.65 MG/DL (0.55-1.30); GLOMERULAR FILTRATION RATE > 60.0 (>51); GLUCOSE, FASTING 77 MG/DL (60-100); MAGNESIUM LEVEL 1.8 MG/DL (1.8-2.4); SODIUM LEVEL 137 MMOL/L (136-145); TOTAL PROTEIN 7.7 G/DL (5.7-8.2)
[2023-11-01 10:01] LABS: FREE T3 4.3 PG/ML (2.3-4.2); THYROID STIMULATING HORMONE 0.269 uIU/ML (0.55-4.78)
[2023-11-01 10:02] LABS: FREE T4 0.91 NG/DL (0.89-1.76)
== END ==
LOC: M LAB 09:09
PROVIDERS: ATTEND Registered Nurse
DX: E87.5 Hyperkalemia (principal); Z79.899 Other long term (current) drug therapy

== ENCOUNTER → 2023-11-08 | Outpatient (CLI) | payer MEDICARE, MEDICAID ==
[2023-11-08 12:50] LABS: ALBUMIN 3.5 G/DL (3.2-5.2); ALKALINE PHOSPHATASE 459 U/L (46-116); ALT/SGPT 301 U/L (7.0-40); AST/SGOT 169 U/L (<34); BILIRUBIN,TOTAL < 0.2 MG/DL (0.3-1.2); BLOOD UREA NITROGEN 31 MG/DL (9-23); CALCIUM LEVEL 10.7 MG/DL (8.5-10.1); CARBON DIOXIDE LEVEL 29 MMOL/L (20-31); CHLORIDE LEVEL 106 MMOL/L (98-107); CREATININE FOR GFR 0.66 MG/DL (0.55-1.30); GLOMERULAR FILTRATION RATE > 60.0 (>51); GLUCOSE, FASTING 71 MG/DL (60-100); MAGNESIUM LEVEL 1.7 MG/DL (1.8-2.4); POTASSIUM SERUM 4.9 MMOL/L (3.5-5.1); SODIUM LEVEL 142 MMOL/L (136-145); TOTAL PROTEIN 7.8 G/DL (5.7-8.2)
== END ==
LOC: M WUC 08:56
PROVIDERS: ATTEND Registered Nurse
DX: E87.5 Hyperkalemia (principal)

== ENCOUNTER → 2023-11-14 | Outpatient (CLI) | payer MEDICARE, MEDICAID ==
[2023-11-14 11:19] LABS: ALBUMIN 3.4 G/DL (3.2-5.2); ALKALINE PHOSPHATASE 481 U/L (46-116); ALT/SGPT 260 U/L (7.0-40); AST/SGOT 157 U/L (<34); BILIRUBIN,TOTAL 0.2 MG/DL (0.3-1.2); BLOOD UREA NITROGEN 42 MG/DL (9-23); CALCIUM LEVEL 10.4 MG/DL (8.5-10.1); CARBON DIOXIDE LEVEL 29 MMOL/L (20-31); CHLORIDE LEVEL 113 MMOL/L (98-107); CREATININE FOR GFR 0.77 MG/DL (0.55-1.30); GLOMERULAR FILTRATION RATE > 60.0 (>51); GLUCOSE, FASTING 79 MG/DL (60-100); MAGNESIUM LEVEL 1.9 MG/DL (1.8-2.4); POTASSIUM SERUM 4.6 MMOL/L (3.5-5.1); SODIUM LEVEL 147 MMOL/L (136-145); TOTAL PROTEIN 7.6 G/DL (5.7-8.2)
== END ==
LOC: M WUC 08:16
PROVIDERS: ATTEND Registered Nurse
DX: E87.5 Hyperkalemia (principal)

== ENCOUNTER → 2023-11-23 | Outpatient (CLI) | payer MEDICARE, MEDICAID ==
[2023-11-23 14:17] LABS: ALBUMIN 3.1 G/DL (3.2-5.2); ALKALINE PHOSPHATASE 465 U/L (46-116); ALT/SGPT 305 U/L (7.0-40); AST/SGOT 180 U/L (<34); BILIRUBIN,TOTAL < 0.2 MG/DL (0.3-1.2); BLOOD UREA NITROGEN 30 MG/DL (9-23); CALCIUM LEVEL 10.1 MG/DL (8.5-10.1); CARBON DIOXIDE LEVEL 29 MMOL/L (20-31); CHLORIDE LEVEL 109 MMOL/L (98-107); CREATININE FOR GFR 0.61 MG/DL (0.55-1.30); GLOMERULAR FILTRATION RATE > 60.0 (>51); GLUCOSE, FASTING 60 MG/DL (60-100); MAGNESIUM LEVEL 1.7 MG/DL (1.8-2.4); POTASSIUM SERUM 5.3 MMOL/L (3.5-5.1); SODIUM LEVEL 141 MMOL/L (136-145)
== END ==
LOC: M WUC 09:34
PROVIDERS: ATTEND Registered Nurse
DX: E87.5 Hyperkalemia (principal)

== ENCOUNTER → 2023-11-27 | Outpatient (CLI) | payer MEDICARE, MEDICAID ==
[2023-11-27 10:47] LABS: ALBUMIN 3.2 G/DL (3.2-5.2); ALKALINE PHOSPHATASE 421 U/L (46-116); ALT/SGPT 335 U/L (7.0-40); AST/SGOT 214 U/L (<34); BILIRUBIN,TOTAL < 0.2 MG/DL (0.3-1.2); BLOOD UREA NITROGEN 31 MG/DL (9-23); CALCIUM LEVEL 10.1 MG/DL (8.5-10.1); CARBON DIOXIDE LEVEL 28 MMOL/L (20-31); CHLORIDE LEVEL 109 MMOL/L (98-107); GLOMERULAR FILTRATION RATE > 60.0 (>51); GLUCOSE, FASTING 72 MG/DL (60-100); MAGNESIUM LEVEL 1.7 MG/DL (1.8-2.4); SODIUM LEVEL 141 MMOL/L (136-145)
== END ==
LOC: M WUC 08:20
PROVIDERS: ATTEND Registered Nurse
DX: E87.5 Hyperkalemia (principal)

== ENCOUNTER → 2023-12-05 | Outpatient (CLI) | payer MEDICARE, MEDICAID ==
[2023-12-05 10:22] LABS: ALBUMIN 3.2 G/DL (3.2-5.2); ALKALINE PHOSPHATASE 448 U/L (46-116); ALT/SGPT 399 U/L (7.0-40); AST/SGOT 238 U/L (<34); BILIRUBIN,TOTAL < 0.2 MG/DL (0.3-1.2); BLOOD UREA NITROGEN 33 MG/DL (9-23); CALCIUM LEVEL 10.2 MG/DL (8.5-10.1); CARBON DIOXIDE LEVEL 32 MMOL/L (20-31); CHLORIDE LEVEL 109 MMOL/L (98-107); CREATININE FOR GFR 0.66 MG/DL (0.55-1.30); GLOMERULAR FILTRATION RATE > 60.0 (>51); GLUCOSE, FASTING 61 MG/DL (60-100); MAGNESIUM LEVEL 1.9 MG/DL (1.8-2.4); SODIUM LEVEL 144 MMOL/L (136-145); TOTAL PROTEIN 7.4 G/DL (5.7-8.2)
== END ==
LOC: M WUC 08:06
PROVIDERS: ATTEND Registered Nurse
DX: E87.5 Hyperkalemia (principal)

== ENCOUNTER 2023-12-08 22:05 | Emergency (ER) | payer MEDICARE, MEDICAID ==
[~2023-12-08] VITALS: Ht 165.1 cm; Wt 70.4 kg
[2023-12-08] MEDS: GASTROGRAFIN SOLUTION 30ML GT ONE (23:40)
[2023-12-08 23:48] LABS: LIPASE 62 U/L (12-53)
[2023-12-08 23:50] LABS: ALBUMIN 3.1 G/DL (3.2-5.2); ALKALINE PHOSPHATASE 426 U/L (46-116); ALT/SGPT 286 U/L (7.0-40); AST/SGOT 191 U/L (<34); BILIRUBIN,TOTAL < 0.2 MG/DL (0.3-1.2); BLOOD UREA NITROGEN 32 MG/DL (9-23); CALCIUM LEVEL 9.9 MG/DL (8.5-10.1); CARBON DIOXIDE LEVEL 32 MMOL/L (20-31); CHLORIDE LEVEL 108 MMOL/L (98-107); CREATININE FOR GFR 0.88 MG/DL (0.55-1.30); GLOMERULAR FILTRATION RATE > 60.0 (>51); GLUCOSE, FASTING 68 MG/DL (60-100); POTASSIUM SERUM 5.2 MMOL/L (3.5-5.1); SODIUM LEVEL 142 MMOL/L (136-145); TOTAL PROTEIN 7.1 G/DL (5.7-8.2)
[2023-12-08 23:53] LABS: BASO % 0.2 % (0.0-1.0); EOS % 0.5 % (0.0-3.0); HEMATOCRIT 29.4 % (36.0-47.0); HEMOGLOBIN 9.1 g/dl (12.0-15.5); LYMPH # 2.7 10^3/uL (1.5-5.0); LYMPH % 43.9 % (24.0-44.0); MEAN CORPUSCULAR HEMOGLOBIN 31.9 pg (27.0-33.0); MEAN CORPUSCULAR VOLUME 103.2 fl (80.0-96.0); MONO # 0.8 10^3/uL (0.0-0.8); MONO % 13.6 % (2.0-8.0); NEUTROPHILS # 2.5 10^3/uL (1.5-8.5); NEUTROPHILS % 41.8 % (36.0-66.0); PLATELET COUNT, AUTOMATED 166 10^3/uL (150-450); RED BLOOD COUNT 2.85 10^6/uL (4.00-5.40)
[2023-12-09 00:31] VITALS: BP 101/54; TEMP 97.9; O2SAT 100
== END 2023-12-09 01:22 | disposition home or self-care (01) ==
LOC: M ED 22:05 → EDBD 22:05 → M ED 12-09 01:22
DX: K94.23 Gastrostomy malfunction (principal); F79 Unspecified intellectual disabilities; R74.01 Elevation of levels of liver transaminase levels; E78.5 Hyperlipidemia, unspecified; Z87.01 Personal history of pneumonia (recurrent); Z79.899 Other long term (current) drug therapy
CPT/HCPCS: 43762; 74018; 80053; 83690; 85025; 99284; Q9963

== ENCOUNTER 2023-12-10 12:35 | Emergency (ER) | payer MEDICARE, MEDICAID ==
[~2023-12-10] VITALS: Ht 165.1 cm; Wt 53.2 kg
[2023-12-10 12:36] VITALS: BP 100/60; TEMP 98; O2SAT 99
== END 2023-12-10 17:03 | disposition home or self-care (01) ==
LOC: M ED 12:35
DX: K94.20 Gastrostomy complication, unspecified (principal); R13.10 Dysphagia, unspecified; F79 Unspecified intellectual disabilities; F32.A Depression, unspecified; F41.9 Anxiety disorder, unspecified; Z79.899 Other long term (current) drug therapy

== ENCOUNTER → 2023-12-12 | Outpatient (CLI) | payer MEDICARE, MEDICAID ==
[2023-12-12 11:22] LABS: FREE T4 0.89 NG/DL (0.89-1.76); THYROID STIMULATING HORMONE 7.836 uIU/ML (0.55-4.78)
[2023-12-12 11:24] LABS: FREE T3 3.4 PG/ML (2.3-4.2)
== END ==
LOC: M PLALAB 08:57
PROVIDERS: ATTEND Registered Nurse
DX: E03.9 Hypothyroidism, unspecified (principal)

== ENCOUNTER → 2023-12-12 | Outpatient (REF) | payer MEDICARE, MEDICAID ==
[2023-12-12 18:49] LABS: APPEARANCE, URINE CLOUDY (CLEAR); BACTERIA, URINE AUTO NEGATIVE (NEGATIVE); BILIRUBIN, URINE AUTO NEGATIVE (NEGATIVE); BLOOD, URINE BLOOD NEGATIVE (NEGATIVE); COLOR, URINE AMBER (YELLOW); GLUCOSE, URINE (UA) AUTO NEGATIVE (NEGATIVE); KETONE, URINE AUTO NEGATIVE (NEGATIVE); LEUKOCYTE ESTERASE, URINE AUTO 3+ (NEGATIVE); MUCUS, URINE SMALL (NEGATIVE); NITRITE, URINE AUTO NEGATIVE (NEGATIVE); PROTEIN, URINE AUTO 3+ mg/dL (NEGATIVE); RBC, URINE AUTO 0 /HPF (0-3); SPECIFIC GRAVITY URINE AUTO 1.018 (1.002-1.035); SQUAMOUS EPITHELIAL CELL UR AU 0 /HPF (0-6); UROBILINOGEN, URINE AUTO 0.2 mg/dL (0.0-2.0); WBC, URINE AUTO 47 /HPF (0-3)
== END ==
LOC: M SMT 16:19
PROVIDERS: ATTEND Physician Assistant
DX: R32 Unspecified urinary incontinence (principal); E03.9 Hypothyroidism, unspecified

== ENCOUNTER → 2023-12-21 | Outpatient (CLI) | payer MEDICARE, MEDICAID ==
[2023-12-21 09:54] LABS: FREE T3 3.5 PG/ML (2.3-4.2); FREE T4 0.82 NG/DL (0.89-1.76)
[2023-12-21 09:55] LABS: THYROID STIMULATING HORMONE 4.45 uIU/ML (0.55-4.78)
== END ==
LOC: M LAB 08:37
PROVIDERS: ATTEND Registered Nurse
DX: E03.9 Hypothyroidism, unspecified (principal); E87.5 Hyperkalemia

== ENCOUNTER → 2023-12-21 | Outpatient (CLI) | payer MEDICARE, MEDICAID ==
[2023-12-21 15:54] LABS: ALBUMIN 3.1 G/DL (3.2-5.2); ALKALINE PHOSPHATASE 428 U/L (46-116); ALT/SGPT 196 U/L (7.0-40); AST/SGOT 103 U/L (<34); BILIRUBIN,TOTAL < 0.2 MG/DL (0.3-1.2); BLOOD UREA NITROGEN 34 MG/DL (9-23); CALCIUM LEVEL 9.9 MG/DL (8.5-10.1); CARBON DIOXIDE LEVEL 28 MMOL/L (20-31); CHLORIDE LEVEL 110 MMOL/L (98-107); CREATININE FOR GFR 0.87 MG/DL (0.55-1.30); GLOMERULAR FILTRATION RATE > 60.0 (>51); GLUCOSE, FASTING 93 MG/DL (60-100); MAGNESIUM LEVEL 1.5 MG/DL (1.8-2.4); SODIUM LEVEL 142 MMOL/L (136-145); TOTAL PROTEIN 7.4 G/DL (5.7-8.2)
== END ==
LOC: M PLALAB 12:32
PROVIDERS: ATTEND Registered Nurse
DX: E87.5 Hyperkalemia (principal)

== ENCOUNTER → 2023-12-27 | Outpatient (CLI) | payer MEDICARE, MEDICAID ==
[~2023-12-27] MED LIST changes: +ACET1TAB55 PO; +FLUO-290 GT; +HYDR-4468 GT; +IBUP-1764 PO; +JEVILIQ12 GT; -JEVILIQ12 JT; +LEVO75TA4 GT; +MIDO2.5T GT; +OPTI0.5D2 OU; +PIPE3.3729 IV; +SODI15SS GT; -SODI15SS JT; +TRIPOIN9 TOP; +[UNRECOGNIZED DRUG - CODE] GT
[2023-12-27 10:57] LABS: ALBUMIN 3.2 G/DL (3.2-5.2); ALKALINE PHOSPHATASE 438 U/L (46-116); ALT/SGPT 213 U/L (7.0-40); AST/SGOT 115 U/L (<34); BILIRUBIN,TOTAL < 0.2 MG/DL (0.3-1.2); BLOOD UREA NITROGEN 31 MG/DL (9-23); CALCIUM LEVEL 10.1 MG/DL (8.5-10.1); CARBON DIOXIDE LEVEL 32 MMOL/L (20-31); CHLORIDE LEVEL 111 MMOL/L (98-107); CREATININE FOR GFR 0.67 MG/DL (0.55-1.30); GLOMERULAR FILTRATION RATE > 60.0 (>51); GLUCOSE, FASTING 61 MG/DL (60-100); MAGNESIUM LEVEL 1.8 MG/DL (1.8-2.4); POTASSIUM SERUM 5.1 MMOL/L (3.5-5.1); SODIUM LEVEL 144 MMOL/L (136-145); TOTAL PROTEIN 7.4 G/DL (5.7-8.2)
== END ==
LOC: M WUC 08:34
PROVIDERS: ATTEND Registered Nurse
DX: E87.5 Hyperkalemia (principal)

== ENCOUNTER → 2023-12-28 | Outpatient (CLI) | payer MEDICARE, MEDICAID | LOC: M RAD 10:05 | PROVIDERS: ATTEND Registered Nurse | DX: K75.9 Inflammatory liver disease, unspecified (principal); K76.0 Fatty (change of) liver, not elsewhere classified ==

== ENCOUNTER → 2024-01-03 | Outpatient (CLI) | payer MEDICARE, MEDICAID ==
[2024-01-03 10:30] LABS: ALBUMIN 3.1 G/DL (3.2-5.2); ALKALINE PHOSPHATASE 391 U/L (46-116); ALT/SGPT 195 U/L (7.0-40); AST/SGOT 133 U/L (<34); BILIRUBIN,TOTAL < 0.2 MG/DL (0.3-1.2); BLOOD UREA NITROGEN 27 MG/DL (9-23); CALCIUM LEVEL 10.2 MG/DL (8.5-10.1); CARBON DIOXIDE LEVEL 32 MMOL/L (20-31); CHLORIDE LEVEL 108 MMOL/L (98-107); CREATININE FOR GFR 0.64 MG/DL (0.55-1.30); GLOMERULAR FILTRATION RATE > 60.0 (>51); GLUCOSE, FASTING 70 MG/DL (60-100); MAGNESIUM LEVEL 1.6 MG/DL (1.8-2.4); POTASSIUM SERUM 4.8 MMOL/L (3.5-5.1); SODIUM LEVEL 142 MMOL/L (136-145); TOTAL PROTEIN 7.3 G/DL (5.7-8.2)
== END ==
LOC: M WUC 08:48
PROVIDERS: ATTEND Registered Nurse
DX: E87.5 Hyperkalemia (principal)

== ENCOUNTER 2024-01-04 08:28 | Inpatient (IN) | payer MEDICARE, MEDICAID ==
[~2024-01-04] VITALS: Ht 157.5 cm; Wt 59.7 kg
[2024-01-04] VITALS (7 sets, daily range): BP systolic 98–133; BP diastolic 56–62; TEMP 94.5–97.9; O2SAT 75–100
[~2024-01-04 08:28] MED LIST changes: -ACET1TAB55 PO; -FLUO-290 GT; -HYDR-4468 GT; -IBUP-1764 PO; -MIDO2.5T GT; -OPTI0.5D2 OU; -PIPE3.3729 IV; -TRIPOIN9 TOP; -[UNRECOGNIZED DRUG - CODE] GT
[2024-01-04] MEDS: NS 1,000 ML IV SCH (08:40)
[2024-01-04] MEDS ORDERED: ISOVUE-300 61% 100ML VIAL As Ordered ONE (08:57)
[2024-01-04] MEDS ORDERED: LIDOCAINE 1% MDV 20ML VIAL As Ordered ONE (08:57)
[2024-01-04] MEDS ORDERED: LIDOCAINE 2% JELLY 6ML SYRINGE As Ordered ONE (08:57)
[2024-01-04 10:12] LABS: HEMATOCRIT 29.2 % (36.0-47.0); HEMOGLOBIN 9.1 g/dl (12.0-15.5); MEAN CORPUSCULAR HEMOGLOBIN 32.7 pg (27.0-33.0); MEAN CORPUSCULAR HGB CONC 31.2 g/dl (32.0-36.5); PLATELET COUNT, AUTOMATED 150 10^3/uL (150-450); RED BLOOD COUNT 2.78 10^6/uL (4.00-5.40)
[2024-01-04] MEDS ORDERED: LORazepam 2 MG/ML 1ML VIAL IV PRN (10:55)
[2024-01-04] MEDS ORDERED: FLUO-290 GT (11:49)
[2024-01-04] MEDS ORDERED: OPTI0.5D2 OU (11:49)
[2024-01-04] MEDS ORDERED: [UNRECOGNIZED DRUG - CODE] GT (11:49)
[2024-01-04] MEDS ORDERED: SODI15SS GT (11:49)
[2024-01-04 11:55] LABS: C REACTIVE PROTEIN QUANTITATIV < 0.40 MG/DL (<1.0)
[2024-01-04 11:56] LABS: ALKALINE PHOSPHATASE 376 U/L (46-116); ALT/SGPT 198 U/L (7.0-40); AST/SGOT 128 U/L (<34); BILIRUBIN,TOTAL < 0.2 MG/DL (0.3-1.2); BLOOD UREA NITROGEN 27 MG/DL (9-23); CALCIUM LEVEL 10.2 MG/DL (8.5-10.1); CARBON DIOXIDE LEVEL 31 MMOL/L (20-31); CHLORIDE LEVEL 112 MMOL/L (98-107); CREATININE FOR GFR 0.68 MG/DL (0.55-1.30); GLOMERULAR FILTRATION RATE > 60.0 (>51); GLUCOSE, FASTING 71 MG/DL (60-100); POTASSIUM SERUM 5.1 MMOL/L (3.5-5.1); SODIUM LEVEL 144 MMOL/L (136-145); TOTAL PROTEIN 7.1 G/DL (5.7-8.2)
[2024-01-04] MEDS ORDERED: TRIPOIN9 TOP (11:58)
[2024-01-04] MEDS ORDERED: IBUP-1764 PO (11:58)
[2024-01-04] MEDS ORDERED: ONDA-83 PO (11:58)
[2024-01-04] MEDS ORDERED: ACET1TAB55 PO (11:58)
[2024-01-04] MEDS ORDERED: HOME MED LIST COMPLETE! XX SCH (12:00)
[2024-01-04 12:01] LABS: FREE THYROXINE INDEX 1.7 % (1.3-4.8); T UPTAKE 26.5 % (22.5-37.0); THYROXINE (T4) 6.5 UG/DL (4.5-10.9)
[2024-01-04] MEDS: D5W/0.45% SODIUM CHLORIDE 1,000 ML IV SCH (13:17)
[2024-01-04 14:22] LABS: PROCALCITONIN 0.05 ng/ml
[2024-01-04] MEDS ORDERED: PIPERACILLIN/TAZOBACTAM SOD 3.375 GM in D5W MINI-BAG PLUS 50 ML IV SCH (15:00)
[2024-01-04] MEDS ORDERED: VANCOMYCIN HCL 1,000 MG, VIAL MATE ADAPTER 1 EACH in D5W 250 ML IV ONE ×2 (16:00→19:00)
[2024-01-04] MEDS: HYDROCORTISONE 100MG/2ML VIAL IV SCH (16:26)
[2024-01-04] MEDS: FOLIC ACID 1 MG in NS 50 ML IV SCH (16:26)
[2024-01-04] MEDS: NS 1,000 ML IV ONE ×3 (16:29→16:45)
[2024-01-04] MEDS: PANTOPRAZOLE 40MG VIAL IV SCH (16:30)
[2024-01-04] MEDS: LEVOTHYROXINE 100MCG (0.1MG) 5ML SDV PF (SOLUTION FORM) IV SCH (16:30)
[2024-01-04] MEDS: PIPERACILLIN/TAZOBACTAM SOD 3.375 GM in D5W MINI-BAG PLUS 50 ML IV SCH (17:22)
[2024-01-05] VITALS (9 sets, daily range): BP systolic 84–116; BP diastolic 48–58; TEMP 96.1–97.7; O2SAT 96–99
[2024-01-05] MEDS: VANCOMYCIN HCL 1,000 MG, VIAL MATE ADAPTER 1 EACH in D5W 250 ML IV ONE (00:15)
[2024-01-05] MEDS ORDERED: VANCOMYCIN HCL 750 MG, VIAL MATE ADAPTER 1 EACH in D5W 250 ML IV SCH (08:00)
[2024-01-05 08:10] LABS: VANCOMYCIN LEVEL TROUGH 19.4 UG/ML (10.0-20.0)
[2024-01-05 08:43] LABS: HEMATOCRIT 25.3 % (36.0-47.0); HEMOGLOBIN 7.8 g/dl (12.0-15.5); LYMPH # 1.4 10^3/uL (1.5-5.0); LYMPH % 25.5 % (24.0-44.0); MEAN CORPUSCULAR HEMOGLOBIN 32.5 pg (27.0-33.0); MEAN CORPUSCULAR HGB CONC 30.8 g/dl (32.0-36.5); MEAN CORPUSCULAR VOLUME 105.4 fl (80.0-96.0); MONO # 0.1 10^3/uL (0.0-0.8); NEUTROPHILS # 3.9 10^3/uL (1.5-8.5); NEUTROPHILS % 72.1 % (36.0-66.0); PLATELET COUNT, AUTOMATED 163 10^3/uL (150-450); WHITE BLOOD COUNT 5.5 10^3/uL (4.0-10.0)
[2024-01-05 08:55] LABS: BLOOD UREA NITROGEN 23 MG/DL (9-23); CALCIUM LEVEL 8.8 MG/DL (8.5-10.1); CARBON DIOXIDE LEVEL 23 MMOL/L (20-31); CHLORIDE LEVEL 114 MMOL/L (98-107); CREATININE FOR GFR 0.97 MG/DL (0.55-1.30); GLOMERULAR FILTRATION RATE > 60.0 (>51); GLUCOSE, FASTING 170 MG/DL (60-100); POTASSIUM SERUM 4.6 MMOL/L (3.5-5.1); SODIUM LEVEL 142 MMOL/L (136-145)
[2024-01-05] MEDS: HYDROCORTISONE 100MG/2ML VIAL IV SCH ×2 (12:11→17:54)
[2024-01-05] MEDS: VANCOMYCIN HCL 500 MG in D5W MINI-BAG PLUS 100 ML IV SCH (12:11)
[2024-01-05] MEDS: NS 1,000 ML IV ONE ×3 (16:29→17:54)
[2024-01-06] VITALS (10 sets, daily range): BP systolic 102–115; BP diastolic 56–78; TEMP 95.9–98.6; O2SAT 97–100
[2024-01-06 05:04] LABS: BASO % 0.1 % (0.0-1.0); HEMATOCRIT 24.6 % (36.0-47.0); HEMOGLOBIN 7.6 g/dl (12.0-15.5); LYMPH # 1.8 10^3/uL (1.5-5.0); LYMPH % 26.3 % (24.0-44.0); MEAN CORPUSCULAR HEMOGLOBIN 32.8 pg (27.0-33.0); MEAN CORPUSCULAR HGB CONC 30.9 g/dl (32.0-36.5); MONO # 0.3 10^3/uL (0.0-0.8); MONO % 4.2 % (2.0-8.0); NEUTROPHILS # 4.8 10^3/uL (1.5-8.5); NEUTROPHILS % 69.1 % (36.0-66.0); PLATELET COUNT, AUTOMATED 162 10^3/uL (150-450); RED BLOOD COUNT 2.32 10^6/uL (4.00-5.40); WHITE BLOOD COUNT 6.9 10^3/uL (4.0-10.0)
[2024-01-06 05:28] LABS: BLOOD UREA NITROGEN 14 MG/DL (9-23); CARBON DIOXIDE LEVEL 24 MMOL/L (20-31); CHLORIDE LEVEL 117 MMOL/L (98-107); CREATININE FOR GFR 0.94 MG/DL (0.55-1.30); GLOMERULAR FILTRATION RATE > 60.0 (>51); GLUCOSE, FASTING 117 MG/DL (60-100); POTASSIUM SERUM 3.9 MMOL/L (3.5-5.1); SODIUM LEVEL 145 MMOL/L (136-145)
[2024-01-06] MEDS ORDERED: DEXTROSE 50% 50ML SYRINGE IV PRN (08:35)
[2024-01-06] MEDS ORDERED: GLUCAGON INJ 1MG VIAL SC PRN (08:35)
[2024-01-06] MEDS ORDERED: GLUCOSE 4 GM CHEW PO PRN (08:35)
[2024-01-06] MEDS ORDERED: NEOSPORIN OINT 0.9 GM PKT TOP PRN (15:40)
[2024-01-06] MEDS ORDERED: BALMEX CREAM 60GM TOP PRN (15:40)
[2024-01-06] MEDS ORDERED: ACETAMINOPHEN 325 MG TAB PO PRN (15:40)
[2024-01-06] MEDS ORDERED: guaiFENesin SYRUP 200MG 10ML UDC PO PRN (15:40)
[2024-01-06] MEDS ORDERED: ONDANSETRON 4MG TAB PO PRN (15:40)
[2024-01-06] MEDS ORDERED: IBUPROFEN 400MG TAB PO PRN (15:40)
[2024-01-06] MEDS: ARTIFICIAL TEARS DROPS 15ML BTL (VISINE DRY RELIEF) OU SCH (18:11)
[2024-01-06] MEDS: SIMETHICONE 40MG/0.6ML DROPS 30ML JT SCH (18:11)
[2024-01-06] MEDS: FLUoxetine 10 MG CAP GT SCH (18:11)
[2024-01-06] MEDS: TOPIRAMATE (TopAMAX) 25 MG TAB JT SCH (21:00)
[2024-01-06] MEDS: RISPERIDONE 1 MG TAB JT SCH (21:00)
[2024-01-06] MEDS: OLANZapine INTRAMUSCULAR 10MG VIAL IM PRN (21:26)
[2024-01-06] MEDS: LORazepam 2 MG/ML 1ML VIAL IV STA (23:37)
[2024-01-07] VITALS (11 sets, daily range): BP systolic 108–142; BP diastolic 60–85; TEMP 96.4–98.2; O2SAT 92–99
[2024-01-07] MEDS: LEVOTHYROXINE 75MCG TABLET (0.075MG) GT SCH (06:09)
[2024-01-07 07:20] LABS: HEMATOCRIT 24.2 % (36.0-47.0); HEMOGLOBIN 7.2 g/dl (12.0-15.5); LYMPH # 2.2 10^3/uL (1.5-5.0); LYMPH % 25.8 % (24.0-44.0); MEAN CORPUSCULAR HEMOGLOBIN 32.3 pg (27.0-33.0); MEAN CORPUSCULAR HGB CONC 29.8 g/dl (32.0-36.5); MEAN CORPUSCULAR VOLUME 108.5 fl (80.0-96.0); MONO # 0.5 10^3/uL (0.0-0.8); MONO % 6.2 % (2.0-8.0); NEUTROPHILS # 5.9 10^3/uL (1.5-8.5); NEUTROPHILS % 67.7 % (36.0-66.0); PLATELET COUNT, AUTOMATED 175 10^3/uL (150-450); RED BLOOD COUNT 2.23 10^6/uL (4.00-5.40); WHITE BLOOD COUNT 8.7 10^3/uL (4.0-10.0)
[2024-01-07 07:50] LABS: BLOOD UREA NITROGEN 13 MG/DL (9-23); CARBON DIOXIDE LEVEL 27 MMOL/L (20-31); CHLORIDE LEVEL 114 MMOL/L (98-107); CREATININE FOR GFR 0.97 MG/DL (0.55-1.30); GLOMERULAR FILTRATION RATE > 60.0 (>51); GLUCOSE, FASTING 103 MG/DL (60-100); POTASSIUM SERUM 3.7 MMOL/L (3.5-5.1); SODIUM LEVEL 146 MMOL/L (136-145)
[2024-01-07] MEDS: D5W 1,000 ML IV SCH (08:31)
[2024-01-07] MEDS ORDERED: PIPE3.3729 IV (10:08)
[2024-01-07] MEDS: HYDROCORTISONE 100MG/2ML VIAL IV SCH (14:38)
[2024-01-07] MEDS: LORazepam 0.5 MG TAB JT SCH (14:39)
[2024-01-07] MEDS: SOD POLYSTYRENE SULFONATE SUSP 15GM 60ML UD GT SCH (21:59)
[2024-01-08] VITALS (9 sets, daily range): BP systolic 112–126; BP diastolic 58–75; TEMP 96.3–98.1; O2SAT 97–100
[2024-01-08 07:30] LABS: BASO % 0.1 % (0.0-1.0); EOS % 0.1 % (0.0-3.0); HEMATOCRIT 22.5 % (36.0-47.0); LYMPH # 3.6 10^3/uL (1.5-5.0); LYMPH % 41.9 % (24.0-44.0); MEAN CORPUSCULAR HEMOGLOBIN 32.4 pg (27.0-33.0); MEAN CORPUSCULAR HGB CONC 31.1 g/dl (32.0-36.5); MEAN CORPUSCULAR VOLUME 104.2 fl (80.0-96.0); MONO # 0.7 10^3/uL (0.0-0.8); MONO % 7.8 % (2.0-8.0); NEUTROPHILS # 4.3 10^3/uL (1.5-8.5); NEUTROPHILS % 49.9 % (36.0-66.0); PLATELET COUNT, AUTOMATED 180 10^3/uL (150-450); RED BLOOD COUNT 2.16 10^6/uL (4.00-5.40); WHITE BLOOD COUNT 8.6 10^3/uL (4.0-10.0)
[2024-01-08 08:00] LABS: BLOOD UREA NITROGEN 10 MG/DL (9-23); CALCIUM LEVEL 9.1 MG/DL (8.5-10.1); CARBON DIOXIDE LEVEL 28 MMOL/L (20-31); CHLORIDE LEVEL 113 MMOL/L (98-107); CREATININE FOR GFR 0.98 MG/DL (0.55-1.30); GLOMERULAR FILTRATION RATE > 60.0 (>51); GLUCOSE, FASTING 110 MG/DL (60-100); IRON (FE) 109 UG/DL (50-170); PERCENT SATURATION 49.8 % (13.2-45.0); POTASSIUM SERUM 3.2 MMOL/L (3.5-5.1); SODIUM LEVEL 147 MMOL/L (136-145); TOTAL IRON BINDING CAPACITY 219 UG/DL (250-425)
[2024-01-08 08:02] LABS: FOLATE > 24.0 NG/ML (>5.4)
[2024-01-08 08:03] LABS: VITAMIN B12 LEVEL 1505 PG/ML (211-911)
[2024-01-08] MEDS: SOD POLYSTYRENE SULFONATE SUSP 15GM 60ML UD GT SCH (09:20)
[2024-01-08] MEDS: KCL 10MEQ/100ML SWI (KRUN) 10 MEQ in IV 1 EA IV SCH ×2 (11:17→17:29)
[2024-01-08] MEDS: HYDROCORTISONE 100MG/2ML VIAL IV SCH (15:02)
[2024-01-08 15:27] LABS: HEMATOCRIT 26.6 % (36.0-47.0); HEMOGLOBIN 8.4 g/dl (12.0-15.5)
[2024-01-08 15:57] LABS: BLOOD UREA NITROGEN 10 MG/DL (9-23); CALCIUM LEVEL 8.7 MG/DL (8.5-10.1); CARBON DIOXIDE LEVEL 28 MMOL/L (20-31); CHLORIDE LEVEL 112 MMOL/L (98-107); CREATININE FOR GFR 0.98 MG/DL (0.55-1.30); GLOMERULAR FILTRATION RATE > 60.0 (>51); GLUCOSE, FASTING 108 MG/DL (60-100); POTASSIUM SERUM 3.4 MMOL/L (3.5-5.1); SODIUM LEVEL 144 MMOL/L (136-145)
[2024-01-08] MEDS: POTASSIUM CHLORIDE 10% LIQ 20MEQ/15ML UDC GT ONE (18:39)
[2024-01-09] VITALS (7 sets, daily range): BP systolic 94–134; BP diastolic 53–98; TEMP 95.5–98.4; O2SAT 96–99
[2024-01-09 06:01] LABS: BASO % 0.1 % (0.0-1.0); EOS # 0.1 10^3/uL (0.0-0.5); EOS % 0.7 % (0.0-3.0); HEMATOCRIT 26.5 % (36.0-47.0); HEMOGLOBIN 8.3 g/dl (12.0-15.5); LYMPH # 3.1 10^3/uL (1.5-5.0); LYMPH % 40.2 % (24.0-44.0); MEAN CORPUSCULAR HEMOGLOBIN 32.3 pg (27.0-33.0); MEAN CORPUSCULAR HGB CONC 31.3 g/dl (32.0-36.5); MEAN CORPUSCULAR VOLUME 103.1 fl (80.0-96.0); MONO # 0.7 10^3/uL (0.0-0.8); MONO % 8.5 % (2.0-8.0); NEUTROPHILS # 3.9 10^3/uL (1.5-8.5); NEUTROPHILS % 50.1 % (36.0-66.0); PLATELET COUNT, AUTOMATED 193 10^3/uL (150-450); RED BLOOD COUNT 2.57 10^6/uL (4.00-5.40); WHITE BLOOD COUNT 7.7 10^3/uL (4.0-10.0)
[2024-01-09 06:34] LABS: BLOOD UREA NITROGEN 9 MG/DL (9-23); CALCIUM LEVEL 8.6 MG/DL (8.5-10.1); CARBON DIOXIDE LEVEL 28 MMOL/L (20-31); CHLORIDE LEVEL 113 MMOL/L (98-107); CREATININE FOR GFR 0.97 MG/DL (0.55-1.30); GLOMERULAR FILTRATION RATE > 60.0 (>51); GLUCOSE, FASTING 121 MG/DL (60-100); POTASSIUM SERUM 3.5 MMOL/L (3.5-5.1); SODIUM LEVEL 142 MMOL/L (136-145)
[2024-01-09 07:24] LABS: MAGNESIUM LEVEL 1.3 MG/DL (1.8-2.4)
[2024-01-09] MEDS: MAG SULF 1GM/100ML (MAG RUN) 1 GM in IV 1 EA IV SCH (12:01)
[2024-01-09] MEDS ORDERED: GASTROGRAFIN SOLUTION 30ML As Ordered ONE (15:13)
[2024-01-09 16:36] LABS: HEMATOCRIT 28.2 % (36.0-47.0); HEMOGLOBIN 9.1 g/dl (12.0-15.5)
[2024-01-09] MEDS: LORazepam 2 MG/ML 1ML VIAL IV SCH (16:56)
[2024-01-09] MEDS ORDERED: MAG SULF 1GM/100ML (MAG RUN) 1 GM in IV 1 EA IV SCH (19:00)
[2024-01-09] MEDS: MAG SULF 1GM/100ML (MAG RUN) 1 GM in IV 1 EA IV ONE (19:01)
[2024-01-09] MEDS: PERMETHRIN 5% CREAM 60 GM EXT ONE (19:01)
[2024-01-10] MEDS ORDERED: PERMETHRIN 5% CREAM 60 GM TOP SCH
[2024-01-10 03:40] VITALS: BP 95/59; TEMP 98.8; O2SAT 96
[2024-01-10 07:31] LABS: BASO % 0.1 % (0.0-1.0); EOS # 0.1 10^3/uL (0.0-0.5); EOS % 0.8 % (0.0-3.0); HEMATOCRIT 26.5 % (36.0-47.0); HEMOGLOBIN 8.5 g/dl (12.0-15.5); LYMPH # 3.6 10^3/uL (1.5-5.0); LYMPH % 48.6 % (24.0-44.0); MEAN CORPUSCULAR HEMOGLOBIN 32.6 pg (27.0-33.0); MEAN CORPUSCULAR HGB CONC 32.1 g/dl (32.0-36.5); MEAN CORPUSCULAR VOLUME 101.5 fl (80.0-96.0); MONO # 0.6 10^3/uL (0.0-0.8); MONO % 7.5 % (2.0-8.0); NEUTROPHILS # 3.2 10^3/uL (1.5-8.5); NEUTROPHILS % 42.7 % (36.0-66.0); PLATELET COUNT, AUTOMATED 209 10^3/uL (150-450); RED BLOOD COUNT 2.61 10^6/uL (4.00-5.40); WHITE BLOOD COUNT 7.5 10^3/uL (4.0-10.0)
[2024-01-10 07:44] VITALS: BP 102/63; TEMP 96.8; O2SAT 99
[2024-01-10] MEDS ORDERED: MIDODRINE 2.5 MG TAB GT SCH (08:00)
[2024-01-10 08:02] LABS: BLOOD UREA NITROGEN 8 MG/DL (9-23); CALCIUM LEVEL 8.5 MG/DL (8.5-10.1); CARBON DIOXIDE LEVEL 30 MMOL/L (20-31); CHLORIDE LEVEL 112 MMOL/L (98-107); CREATININE FOR GFR 0.97 MG/DL (0.55-1.30); GLOMERULAR FILTRATION RATE > 60.0 (>51); GLUCOSE, FASTING 87 MG/DL (60-100); POTASSIUM SERUM 3.4 MMOL/L (3.5-5.1); SODIUM LEVEL 144 MMOL/L (136-145)
[2024-01-10] MEDS ORDERED: MIDODRINE 2.5 MG TAB GT PRN (08:35)
[2024-01-10] MEDS ORDERED: HYDROCORTISONE 10 MG TAB GT SCH (09:00)
[2024-01-10] MEDS: LEVOTHYROXINE 100MCG (0.1MG) 5ML SDV PF (SOLUTION FORM) IV SCH (09:47)
[2024-01-10] MEDS: HYDROCORTISONE 10 MG TAB GT SCH (09:48)
[2024-01-10 12:00] VITALS: BP 90/50; TEMP 96.1; O2SAT 98
[2024-01-10 16:00] VITALS: BP 99/60; TEMP 96.8; O2SAT 96
[2024-01-10] MEDS: MIDODRINE 2.5 MG TAB GT SCH (16:38)
[2024-01-10 20:53] VITALS: BP 100/64; TEMP 97.3; O2SAT 97
[2024-01-11] VITALS (7 sets, daily range): BP systolic 97–140; BP diastolic 59–69; TEMP 97.5–98.8; O2SAT 97–98
[2024-01-11 05:50] LABS: BASO % 0.1 % (0.0-1.0); EOS # 0.1 10^3/uL (0.0-0.5); EOS % 0.7 % (0.0-3.0); HEMATOCRIT 27.2 % (36.0-47.0); HEMOGLOBIN 8.6 g/dl (12.0-15.5); LYMPH # 2.9 10^3/uL (1.5-5.0); LYMPH % 38.4 % (24.0-44.0); MEAN CORPUSCULAR HEMOGLOBIN 32.3 pg (27.0-33.0); MEAN CORPUSCULAR HGB CONC 31.6 g/dl (32.0-36.5); MEAN CORPUSCULAR VOLUME 102.3 fl (80.0-96.0); MONO # 0.6 10^3/uL (0.0-0.8); MONO % 7.4 % (2.0-8.0); NEUTROPHILS # 3.9 10^3/uL (1.5-8.5); NEUTROPHILS % 53.1 % (36.0-66.0); PLATELET COUNT, AUTOMATED 228 10^3/uL (150-450); RED BLOOD COUNT 2.66 10^6/uL (4.00-5.40); WHITE BLOOD COUNT 7.4 10^3/uL (4.0-10.0)
[2024-01-11 06:17] LABS: BLOOD UREA NITROGEN 9 MG/DL (9-23); CALCIUM LEVEL 8.8 MG/DL (8.5-10.1); CARBON DIOXIDE LEVEL 29 MMOL/L (20-31); CHLORIDE LEVEL 111 MMOL/L (98-107); CREATININE FOR GFR 0.88 MG/DL (0.55-1.30); GLOMERULAR FILTRATION RATE > 60.0 (>51); GLUCOSE, FASTING 76 MG/DL (60-100); POTASSIUM SERUM 3.2 MMOL/L (3.5-5.1); SODIUM LEVEL 144 MMOL/L (136-145)
[2024-01-11] MEDS: POTASSIUM CHLORIDE 10% LIQ 20MEQ/15ML UDC GT STA (08:18)
[2024-01-11] MEDS: POTASSIUM CHLORIDE 10% LIQ 20MEQ/15ML UDC GT SCH (10:04)
[2024-01-11 11:45] LABS: BLOOD UREA NITROGEN 9 MG/DL (9-23); CALCIUM LEVEL 8.4 MG/DL (8.5-10.1); CARBON DIOXIDE LEVEL 29 MMOL/L (20-31); CHLORIDE LEVEL 111 MMOL/L (98-107); CREATININE FOR GFR 0.89 MG/DL (0.55-1.30); GLOMERULAR FILTRATION RATE > 60.0 (>51); GLUCOSE, FASTING 104 MG/DL (60-100); POTASSIUM SERUM 4.8 MMOL/L (3.5-5.1); SODIUM LEVEL 141 MMOL/L (136-145)
[2024-01-11] MEDS ORDERED: NS 1,000 ML IV SCH (14:50)
[2024-01-12 01:06] VITALS: BP 124/89; TEMP 97.7; O2SAT 98
[2024-01-12 04:07] VITALS: BP 127/69; TEMP 97.7; O2SAT 97
[2024-01-12 06:48] LABS: BASO % 0.1 % (0.0-1.0); EOS % 0.4 % (0.0-3.0); HEMATOCRIT 27.8 % (36.0-47.0); HEMOGLOBIN 8.8 g/dl (12.0-15.5); LYMPH # 2.8 10^3/uL (1.5-5.0); LYMPH % 35.8 % (24.0-44.0); MEAN CORPUSCULAR HEMOGLOBIN 32.7 pg (27.0-33.0); MEAN CORPUSCULAR HGB CONC 31.7 g/dl (32.0-36.5); MEAN CORPUSCULAR VOLUME 103.3 fl (80.0-96.0); MONO # 0.5 10^3/uL (0.0-0.8); NEUTROPHILS # 4.5 10^3/uL (1.5-8.5); NEUTROPHILS % 57.3 % (36.0-66.0); PLATELET COUNT, AUTOMATED 244 10^3/uL (150-450); RED BLOOD COUNT 2.69 10^6/uL (4.00-5.40); WHITE BLOOD COUNT 7.8 10^3/uL (4.0-10.0)
[2024-01-12 07:09] LABS: BLOOD UREA NITROGEN 9 MG/DL (9-23); CARBON DIOXIDE LEVEL 31 MMOL/L (20-31); CHLORIDE LEVEL 110 MMOL/L (98-107); GLOMERULAR FILTRATION RATE > 60.0 (>51); GLUCOSE, FASTING 91 MG/DL (60-100); POTASSIUM SERUM 4.1 MMOL/L (3.5-5.1); SODIUM LEVEL 143 MMOL/L (136-145)
[2024-01-12 07:58] VITALS: BP 121/59; TEMP 98.2; O2SAT 98
[2024-01-12] MEDS ORDERED: MIDO2.5T GT (10:45)
[2024-01-12] MEDS ORDERED: HYDR-4468 GT (10:45)
[2024-01-12 12:00] VITALS: TEMP 98.1; O2SAT 98
[2024-01-12 12:25] VITALS: BP_SYST 115; BP_SYST 125; BP_DIAS 62
== END 2024-01-12 13:17 | disposition home or self-care (01) | DRG 871 ==
LOC: M IRPRO 08:28 → M IRINP 10:44 → M ICU 16:00 → M PCU 20:40
PROVIDERS: ADMIT General Practice; ATTEND Student in an Organized Health Care Education/Training Program
PROC: 30233N1 Transfusion of Nonautologous Red Blood Cells into Peripheral Vein, Percutaneous Approach (ICD-10-PCS; principal; 2024-01-08)
DX: A41.9 Sepsis, unspecified organism (principal); R65.21 Severe sepsis with septic shock; J69.0 Pneumonitis due to inhalation of food and vomit; Q04.0 Congenital malformations of corpus callosum; E27.40 Unspecified adrenocortical insufficiency; K94.23 Gastrostomy malfunction; E87.5 Hyperkalemia; E03.9 Hypothyroidism, unspecified; H90.3 Sensorineural hearing loss, bilateral; R13.10 Dysphagia, unspecified; D50.9 Iron deficiency anemia, unspecified; E78.5 Hyperlipidemia, unspecified; G89.4 Chronic pain syndrome; F39 Unspecified mood [affective] disorder; R68.0 Hypothermia, not associated with low environmental temperature; F79 Unspecified intellectual disabilities; R45.1 Restlessness and agitation; R74.01 Elevation of levels of liver transaminase levels; E83.19 Other disorders of iron metabolism; D56.3 Thalassemia minor; Z53.09 Procedure and treatment not carried out because of other contraindication; K21.9 Gastro-esophageal reflux disease without esophagitis; K76.0 Fatty (change of) liver, not elsewhere classified; Z79.890 Hormone replacement therapy; Z79.899 Other long term (current) drug therapy; Z93.2 Ileostomy status; Z93.1 Gastrostomy status

== ENCOUNTER → 2024-01-14 | Outpatient (CLI) | payer MEDICARE, MEDICAID ==
[~2024-01-14] MED LIST changes: +ACET1TAB55 PO; +FLUO-290 GT; +HYDR-4468 GT; +IBUP-1764 PO; +ISOVUE-300 61% 100ML VIAL As Ordered ONE; +LIDOCAINE 1% MDV 20ML VIAL As Ordered ONE; +LIDOCAINE 2% JELLY 6ML SYRINGE As Ordered ONE; +MIDAZOLAM INJ 2MG/2ML VIAL As Ordered ONE; +MIDO2.5T GT; +OPTI0.5D2 OU; +PIPE3.3729 IV; +TRIPOIN9 TOP; +[UNRECOGNIZED DRUG - CODE] GT; +diphenhydrAMINE 50MG/ML VIAL As Ordered ONE; +fentaNYL 100 MCG/2 ML INJECTION As Ordered ONE
[2024-01-14 14:39] VITALS: TEMP 97
[2024-01-14 16:59] VITALS: BP 120/73; O2SAT 91
== END ==
LOC: M IRPRO 14:22
PROVIDERS: ATTEND Surgery
DX: K31.84 Gastroparesis (principal); R63.30 Feeding difficulties, unspecified; F79 Unspecified intellectual disabilities
CPT/HCPCS: 49446; 99152; 99153; C1729; C1769; C1887; J1200; J2250; J3010; Q9967

== ENCOUNTER → 2024-01-18 | Outpatient (CLI) | payer MEDICARE, MEDICAID ==
[~2024-01-18] MED LIST changes: -ISOVUE-300 61% 100ML VIAL As Ordered ONE; -LIDOCAINE 1% MDV 20ML VIAL As Ordered ONE; -LIDOCAINE 2% JELLY 6ML SYRINGE As Ordered ONE; -MIDAZOLAM INJ 2MG/2ML VIAL As Ordered ONE; -diphenhydrAMINE 50MG/ML VIAL As Ordered ONE; -fentaNYL 100 MCG/2 ML INJECTION As Ordered ONE
[2024-01-18 13:58] LABS: ALBUMIN 3.2 G/DL (3.2-5.2); ALKALINE PHOSPHATASE 207 U/L (46-116); ALT/SGPT 102 U/L (7.0-40); AST/SGOT 50 U/L (<34); BILIRUBIN,TOTAL 0.2 MG/DL (0.3-1.2); BLOOD UREA NITROGEN 13 MG/DL (9-23); CALCIUM LEVEL 9.9 MG/DL (8.5-10.1); CARBON DIOXIDE LEVEL 29 MMOL/L (20-31); CHLORIDE LEVEL 109 MMOL/L (98-107); CREATININE FOR GFR 0.73 MG/DL (0.55-1.30); GLOMERULAR FILTRATION RATE > 60.0 (>51); GLUCOSE, FASTING 87 MG/DL (60-100); MAGNESIUM LEVEL 1.8 MG/DL (1.8-2.4); POTASSIUM SERUM 3.8 MMOL/L (3.5-5.1); SODIUM LEVEL 142 MMOL/L (136-145); TOTAL PROTEIN 6.9 G/DL (5.7-8.2)
== END ==
LOC: M WUC 08:38
PROVIDERS: ATTEND Registered Nurse
DX: E87.5 Hyperkalemia (principal)

== ENCOUNTER → 2024-01-25 | Outpatient (CLI) | payer MEDICARE, MEDICAID ==
[2024-01-25 13:40] LABS: ALBUMIN 3.3 G/DL (3.2-5.2); ALKALINE PHOSPHATASE 235 U/L (46-116); ALT/SGPT 112 U/L (7.0-40); AST/SGOT 60 U/L (<34); BILIRUBIN,TOTAL 0.2 MG/DL (0.3-1.2); BLOOD UREA NITROGEN 21 MG/DL (9-23); CALCIUM LEVEL 9.9 MG/DL (8.5-10.1); CARBON DIOXIDE LEVEL 29 MMOL/L (20-31); CHLORIDE LEVEL 107 MMOL/L (98-107); CREATININE FOR GFR 0.67 MG/DL (0.55-1.30); GLOMERULAR FILTRATION RATE > 60.0 (>51); GLUCOSE, FASTING 70 MG/DL (60-100); MAGNESIUM LEVEL 1.7 MG/DL (1.8-2.4); POTASSIUM SERUM 4.4 MMOL/L (3.5-5.1); SODIUM LEVEL 137 MMOL/L (136-145); TOTAL PROTEIN 7.3 G/DL (5.7-8.2)
[2024-01-25 13:42] LABS: FREE T3 3.7 PG/ML (2.3-4.2); FREE T4 0.99 NG/DL (0.89-1.76); THYROID STIMULATING HORMONE 2.221 uIU/ML (0.55-4.78)
== END ==
LOC: M PLALAB 09:11
PROVIDERS: ATTEND Registered Nurse
DX: E03.9 Hypothyroidism, unspecified (principal); E87.5 Hyperkalemia

== ENCOUNTER → 2024-01-28 | Outpatient (REF) | payer MEDICARE, MEDICAID ==
[2024-01-28 19:38] LABS: AMORPHOUS SEDIMENT SMALL (NEGATIVE); APPEARANCE, URINE CLOUDY (CLEAR); BACTERIA, URINE AUTO 2+ (NEGATIVE); BILIRUBIN, URINE AUTO NEGATIVE (NEGATIVE); BLOOD, URINE BLOOD NEGATIVE (NEGATIVE); COLOR, URINE AMBER (YELLOW); GLUCOSE, URINE (UA) AUTO NEGATIVE (NEGATIVE); KETONE, URINE AUTO NEGATIVE (NEGATIVE); LEUKOCYTE ESTERASE, URINE AUTO 1+ (NEGATIVE); MUCUS, URINE SMALL (NEGATIVE); NITRITE, URINE AUTO NEGATIVE (NEGATIVE); PROTEIN, URINE AUTO NEGATIVE (NEGATIVE); RBC, URINE AUTO 7 /HPF (0-3); SQUAMOUS EPITHELIAL CELL UR AU 21 /HPF (0-6); UROBILINOGEN, URINE AUTO 0.2 mg/dL (0.0-2.0); WBC, URINE AUTO 25 /HPF (0-3)
== END ==
LOC: M LAB REF 19:10
PROVIDERS: ATTEND Physician Assistant
DX: R30.0 Dysuria (principal)

== ENCOUNTER → 2024-01-30 | Outpatient (CLI) | payer MEDICARE, MEDICAID ==
[2024-01-30 10:56] LABS: ALBUMIN 3.6 G/DL (3.2-5.2); ALKALINE PHOSPHATASE 322 U/L (46-116); ALT/SGPT 151 U/L (7.0-40); AST/SGOT 85 U/L (<34); BILIRUBIN,TOTAL < 0.2 MG/DL (0.3-1.2); BLOOD UREA NITROGEN 27 MG/DL (9-23); CALCIUM LEVEL 10.5 MG/DL (8.5-10.1); CARBON DIOXIDE LEVEL 26 MMOL/L (20-31); CHLORIDE LEVEL 106 MMOL/L (98-107); CREATININE FOR GFR 0.71 MG/DL (0.55-1.30); GLOMERULAR FILTRATION RATE > 60.0 (>51); GLUCOSE, FASTING 50 MG/DL (60-100); MAGNESIUM LEVEL 1.7 MG/DL (1.8-2.4); POTASSIUM SERUM 3.8 MMOL/L (3.5-5.1); SODIUM LEVEL 140 MMOL/L (136-145); TOTAL PROTEIN 8.1 G/DL (5.7-8.2)
== END ==
LOC: M WUC 08:47
PROVIDERS: ATTEND Registered Nurse
DX: E87.5 Hyperkalemia (principal)

== ENCOUNTER → 2024-02-07 | Outpatient (CLI) | payer MEDICARE, MEDICAID ==
[2024-02-07 17:10] LABS: ALBUMIN 3.5 G/DL (3.2-5.2); ALKALINE PHOSPHATASE 410 U/L (46-116); ALT/SGPT 176 U/L (7.0-40); AST/SGOT 125 U/L (<34); BILIRUBIN,TOTAL < 0.2 MG/DL (0.3-1.2); BLOOD UREA NITROGEN 46 MG/DL (9-23); CALCIUM LEVEL 10.4 MG/DL (8.5-10.1); CARBON DIOXIDE LEVEL 26 MMOL/L (20-31); CHLORIDE LEVEL 107 MMOL/L (98-107); CREATININE FOR GFR 1.31 MG/DL (0.55-1.30); GLOMERULAR FILTRATION RATE 45.2 (>51); GLUCOSE, FASTING 120 MG/DL (60-100); POTASSIUM SERUM 3.7 MMOL/L (3.5-5.1); SODIUM LEVEL 142 MMOL/L (136-145); TOTAL PROTEIN 7.6 G/DL (5.7-8.2)
== END ==
LOC: M WUC 12:45
PROVIDERS: ATTEND Registered Nurse
DX: E87.5 Hyperkalemia (principal)

== ENCOUNTER 2024-02-08 09:34 | Emergency (ER) | payer MEDICARE, MEDICAID ==
[~2024-02-08] VITALS: Ht 172.7 cm; Wt 53.6 kg
[2024-02-08] MEDS: NS 1,000 ML IV ONE (11:55)
[2024-02-08] MEDS: MIDODRINE 2.5 MG TAB PO ONE (12:00)
[2024-02-08 13:01] LABS: BASO % 0.2 % (0.0-1.0); EOS % 0.1 % (0.0-3.0); HEMATOCRIT 33.6 % (36.0-47.0); HEMOGLOBIN 10.6 g/dl (12.0-15.5); LYMPH # 2.5 10^3/uL (1.5-5.0); LYMPH % 26.2 % (24.0-44.0); MEAN CORPUSCULAR HEMOGLOBIN 32.8 pg (27.0-33.0); MEAN CORPUSCULAR HGB CONC 31.5 g/dl (32.0-36.5); MONO # 0.6 10^3/uL (0.0-0.8); MONO % 6.3 % (2.0-8.0); NEUTROPHILS # 6.3 10^3/uL (1.5-8.5); PLATELET COUNT, AUTOMATED 323 10^3/uL (150-450); RED BLOOD COUNT 3.23 10^6/uL (4.00-5.40); WHITE BLOOD COUNT 9.4 10^3/uL (4.0-10.0)
[2024-02-08 13:22] LABS: INR 1.1; PARTIAL THROMBOPLASTIN TIME 33.8 SECONDS (24.8-34.2); PROTHROMBIN TIME 13.9 SECONDS (12.5-14.5)
[2024-02-08 13:32] LABS: THYROID STIMULATING HORMONE 0.512 uIU/ML (0.55-4.78)
[2024-02-08 13:34] LABS: FREE T4 1.02 NG/DL (0.89-1.76)
[2024-02-08 13:36] LABS: ALBUMIN 3.7 G/DL (3.2-5.2); ALKALINE PHOSPHATASE 398 U/L (46-116); ALT/SGPT 169 U/L (7.0-40); AST/SGOT 133 U/L (<34); BILIRUBIN,DIRECT < 0.1 MG/DL (<0.4); BILIRUBIN,TOTAL < 0.2 MG/DL (0.3-1.2); BLOOD UREA NITROGEN 42 MG/DL (9-23); CALCIUM LEVEL 10.4 MG/DL (8.5-10.1); CARBON DIOXIDE LEVEL 28 MMOL/L (20-31); CHLORIDE LEVEL 110 MMOL/L (98-107); GLOMERULAR FILTRATION RATE 55.3 (>51); GLUCOSE, FASTING 114 MG/DL (60-100); SODIUM LEVEL 146 MMOL/L (136-145)
[2024-02-08] MEDS: GASTROGRAFIN SOLUTION 30ML GT ONE (15:26)
[2024-02-08] MEDS: GASTROGRAFIN SOLUTION 30ML JT ONE (15:27)
[2024-02-08 16:45] VITALS: BP 120/63
[2024-02-08 16:49] VITALS: O2SAT 100
[2024-02-08 16:58] VITALS: TEMP 97.5
== END 2024-02-08 17:05 | disposition home or self-care (01) ==
LOC: M ED 09:34
DX: R11.10 Vomiting, unspecified (principal); N17.9 Acute kidney failure, unspecified; F41.9 Anxiety disorder, unspecified; F32.A Depression, unspecified; Z93.1 Gastrostomy status; Z79.899 Other long term (current) drug therapy
CPT/HCPCS: 71045; 74018; 80048; 80076; 81001; 83605; 84439; 84443; 85025; 85610; 85730; 86140; 87088; 87186; 96360; 96361; 99284; Q9963

== ENCOUNTER → 2024-02-15 | Outpatient (REF) | payer MEDICARE, MEDICAID ==
[2024-02-15 19:09] LABS: ALBUMIN 3.9 G/DL (3.2-5.2); ALKALINE PHOSPHATASE 385 U/L (46-116); ALT/SGPT 223 U/L (7.0-40); AST/SGOT 139 U/L (<34); BILIRUBIN,TOTAL < 0.2 MG/DL (0.3-1.2); BLOOD UREA NITROGEN 61 MG/DL (9-23); CARBON DIOXIDE LEVEL 21 MMOL/L (20-31); CHLORIDE LEVEL 113 MMOL/L (98-107); CREATININE FOR GFR 1.13 MG/DL (0.55-1.30); GLOMERULAR FILTRATION RATE > 60.0 (>51); GLUCOSE, FASTING 140 MG/DL (60-100); MAGNESIUM LEVEL 2.2 MG/DL (1.8-2.4); POTASSIUM SERUM 3.7 MMOL/L (3.5-5.1); SODIUM LEVEL 146 MMOL/L (136-145); TOTAL PROTEIN 8.4 G/DL (5.7-8.2)
== END ==
LOC: M LABWUC 16:46
PROVIDERS: ATTEND Registered Nurse
DX: E87.5 Hyperkalemia (principal)

== ENCOUNTER 2024-02-17 07:46 | Inpatient (IN) | payer MEDICARE, MEDICAID ==
[2024-02-17 09:09] LABS: BASO % 0.1 % (0.0-1.0); EOS % 0.1 % (0.0-3.0); HEMATOCRIT 36.5 % (36.0-47.0); HEMOGLOBIN 11.6 g/dl (12.0-15.5); LYMPH # 2.9 10^3/uL (1.5-5.0); LYMPH % 19.6 % (24.0-44.0); MEAN CORPUSCULAR HEMOGLOBIN 32.9 pg (27.0-33.0); MEAN CORPUSCULAR HGB CONC 31.8 g/dl (32.0-36.5); MEAN CORPUSCULAR VOLUME 103.4 fl (80.0-96.0); MONO # 1.3 10^3/uL (0.0-0.8); MONO % 9.1 % (2.0-8.0); NEUTROPHILS # 10.4 10^3/uL (1.5-8.5); NEUTROPHILS % 70.4 % (36.0-66.0); PLATELET COUNT, AUTOMATED 315 10^3/uL (150-450); RED BLOOD COUNT 3.53 10^6/uL (4.00-5.40); WHITE BLOOD COUNT 14.8 10^3/uL (4.0-10.0)
[2024-02-17 11:18] LABS: LIPASE 47 U/L (12-53)
[2024-02-17 11:20] LABS: ALBUMIN 3.7 G/DL (3.2-5.2); ALKALINE PHOSPHATASE 364 U/L (46-116); ALT/SGPT 171 U/L (7.0-40); AST/SGOT 85 U/L (<34); BILIRUBIN,DIRECT < 0.1 MG/DL (<0.4); BILIRUBIN,TOTAL 0.2 MG/DL (0.3-1.2); BLOOD UREA NITROGEN 91 MG/DL (9-23); CALCIUM LEVEL 10.9 MG/DL (8.5-10.1); CARBON DIOXIDE LEVEL 21 MMOL/L (20-31); CHLORIDE LEVEL 111 MMOL/L (98-107); CREATININE FOR GFR 1.78 MG/DL (0.55-1.30); GLOMERULAR FILTRATION RATE 38.5 (>51); GLUCOSE, FASTING 126 MG/DL (60-100); POTASSIUM SERUM 3.7 MMOL/L (3.5-5.1); SODIUM LEVEL 142 MMOL/L (136-145); TOTAL PROTEIN 8.6 G/DL (5.7-8.2)
[2024-02-17 11:32] LABS: PROCALCITONIN 0.26 ng/ml
[2024-02-17] MEDS: NS 1,000 ML IV ONE (13:15)
[2024-02-17] MEDS ORDERED: MED REC IN PROGRESS XX SCH (19:05)
[2024-02-17 20:31] VITALS: BP 91/69; TEMP 97.7
[2024-02-17] MEDS: NS 1,000 ML IV SCH (20:35)
[2024-02-17] MEDS ORDERED: MIDO2.5T GT (21:34)
[2024-02-17] MEDS ORDERED: HOME MED LIST COMPLETE! XX SCH (22:15)
[2024-02-17] MEDS ORDERED: RAMELTEON 8 MG TAB (ROZEREM) PO ONE (23:45)
[2024-02-18 04:45] VITALS: BP 91/68; TEMP 97.5; O2SAT 95
[2024-02-18] MEDS: LEVOTHYROXINE 75MCG TABLET (0.075MG) GT SCH (06:00)
[2024-02-18 06:21] LABS: BASO % 0.3 % (0.0-1.0); EOS # 0.1 10^3/uL (0.0-0.5); EOS % 0.8 % (0.0-3.0); HEMATOCRIT 30.4 % (36.0-47.0); LYMPH # 3.4 10^3/uL (1.5-5.0); LYMPH % 35.4 % (24.0-44.0); MEAN CORPUSCULAR HEMOGLOBIN 32.4 pg (27.0-33.0); MEAN CORPUSCULAR HGB CONC 31.3 g/dl (32.0-36.5); MEAN CORPUSCULAR VOLUME 103.8 fl (80.0-96.0); MONO # 1.2 10^3/uL (0.0-0.8); MONO % 12.6 % (2.0-8.0); NEUTROPHILS # 4.8 10^3/uL (1.5-8.5); NEUTROPHILS % 50.7 % (36.0-66.0); PLATELET COUNT, AUTOMATED 250 10^3/uL (150-450); RED BLOOD COUNT 2.93 10^6/uL (4.00-5.40); WHITE BLOOD COUNT 9.5 10^3/uL (4.0-10.0)
[2024-02-18 06:22] LABS: HEMOGLOBIN 9.5 g/dl (12.0-15.5)
[2024-02-18 06:45] VITALS: O2SAT 98
[2024-02-18 06:52] LABS: ALBUMIN 2.9 G/DL (3.2-5.2); ALKALINE PHOSPHATASE 270 U/L (46-116); ALT/SGPT 117 U/L (7.0-40); AST/SGOT 54 U/L (<34); BILIRUBIN,TOTAL 0.2 MG/DL (0.3-1.2); BLOOD UREA NITROGEN 61 MG/DL (9-23); CALCIUM LEVEL 9.3 MG/DL (8.5-10.1); CARBON DIOXIDE LEVEL 21 MMOL/L (20-31); CHLORIDE LEVEL 117 MMOL/L (98-107); CREATININE FOR GFR 1.05 MG/DL (0.55-1.30); GLOMERULAR FILTRATION RATE > 60.0 (>51); GLUCOSE, FASTING 86 MG/DL (60-100); POTASSIUM SERUM 3.7 MMOL/L (3.5-5.1); SODIUM LEVEL 146 MMOL/L (136-145); TOTAL PROTEIN 6.9 G/DL (5.7-8.2)
[2024-02-18] MEDS: MIDODRINE 2.5 MG TAB JT SCH (08:00)
[2024-02-18 12:27] VITALS: BP 101/75
[2024-02-18] MEDS: RISPERIDONE 1 MG TAB JT SCH (12:29)
[2024-02-18] MEDS: SIMETHICONE 40MG/0.6ML DROPS 30ML JT SCH (12:30)
[2024-02-18] MEDS: TOPIRAMATE (TopAMAX) 25 MG TAB JT SCH (12:30)
[2024-02-18 14:00] VITALS: BP 94/70; TEMP 97.5; O2SAT 99
[2024-02-18] MEDS: LORazepam 0.5 MG TAB JT SCH (15:48)
[2024-02-18 20:35] VITALS: BP 92/62; TEMP 97.2; O2SAT 100
[2024-02-19 04:54] VITALS: BP 92/61; TEMP 97.5; O2SAT 100
[2024-02-19 06:27] LABS: BASO % 0.3 % (0.0-1.0); EOS # 0.1 10^3/uL (0.0-0.5); EOS % 0.8 % (0.0-3.0); HEMATOCRIT 27.6 % (36.0-47.0); HEMOGLOBIN 8.8 g/dl (12.0-15.5); LYMPH # 2.5 10^3/uL (1.5-5.0); MEAN CORPUSCULAR HEMOGLOBIN 32.8 pg (27.0-33.0); MEAN CORPUSCULAR HGB CONC 31.9 g/dl (32.0-36.5); MONO # 0.7 10^3/uL (0.0-0.8); NEUTROPHILS # 3.2 10^3/uL (1.5-8.5); NEUTROPHILS % 49.6 % (36.0-66.0); PLATELET COUNT, AUTOMATED 226 10^3/uL (150-450); RED BLOOD COUNT 2.68 10^6/uL (4.00-5.40); WHITE BLOOD COUNT 6.5 10^3/uL (4.0-10.0)
[2024-02-19 06:53] LABS: ALBUMIN 2.7 G/DL (3.2-5.2); ALKALINE PHOSPHATASE 237 U/L (46-116); ALT/SGPT 103 U/L (7.0-40); AST/SGOT 58 U/L (<34); BILIRUBIN,TOTAL 0.2 MG/DL (0.3-1.2); BLOOD UREA NITROGEN 38 MG/DL (9-23); CALCIUM LEVEL 9.2 MG/DL (8.5-10.1); CARBON DIOXIDE LEVEL 21 MMOL/L (20-31); CHLORIDE LEVEL 115 MMOL/L (98-107); CREATININE FOR GFR 0.74 MG/DL (0.55-1.30); GLOMERULAR FILTRATION RATE > 60.0 (>51); GLUCOSE, FASTING 84 MG/DL (60-100); POTASSIUM SERUM 3.2 MMOL/L (3.5-5.1); SODIUM LEVEL 151 MMOL/L (136-145); TOTAL PROTEIN 6.3 G/DL (5.7-8.2)
[2024-02-19 12:00] VITALS: BP 112/78; TEMP 97.7; O2SAT 99
[2024-02-19 20:08] VITALS: BP 95/72; TEMP 97; O2SAT 99
[2024-02-19] MEDS: ACETAMINOPHEN 325 MG TAB JT PRN (20:11)
[2024-02-20 06:00] VITALS: BP 131/99; TEMP 97.2; O2SAT 100
[2024-02-20 06:36] LABS: BASO % 0.4 % (0.0-1.0); EOS % 0.8 % (0.0-3.0); HEMATOCRIT 27.4 % (36.0-47.0); HEMOGLOBIN 8.8 g/dl (12.0-15.5); LYMPH # 2.3 10^3/uL (1.5-5.0); LYMPH % 47.4 % (24.0-44.0); MEAN CORPUSCULAR HEMOGLOBIN 32.2 pg (27.0-33.0); MEAN CORPUSCULAR HGB CONC 32.1 g/dl (32.0-36.5); MEAN CORPUSCULAR VOLUME 100.4 fl (80.0-96.0); MONO # 0.4 10^3/uL (0.0-0.8); MONO % 9.1 % (2.0-8.0); NEUTROPHILS % 42.1 % (36.0-66.0); PLATELET COUNT, AUTOMATED 220 10^3/uL (150-450); RED BLOOD COUNT 2.73 10^6/uL (4.00-5.40); WHITE BLOOD COUNT 4.8 10^3/uL (4.0-10.0)
[2024-02-20 07:15] LABS: ALBUMIN 2.5 G/DL (3.2-5.2); ALKALINE PHOSPHATASE 214 U/L (46-116); ALT/SGPT 85 U/L (7.0-40); AST/SGOT 41 U/L (<34); BILIRUBIN,TOTAL 0.2 MG/DL (0.3-1.2); BLOOD UREA NITROGEN 24 MG/DL (9-23); CALCIUM LEVEL 9.5 MG/DL (8.5-10.1); CARBON DIOXIDE LEVEL 23 MMOL/L (20-31); CHLORIDE LEVEL 115 MMOL/L (98-107); CREATININE FOR GFR 0.67 MG/DL (0.55-1.30); GLOMERULAR FILTRATION RATE > 60.0 (>51); GLUCOSE, FASTING 72 MG/DL (60-100); SODIUM LEVEL 144 MMOL/L (136-145); TOTAL PROTEIN 5.7 G/DL (5.7-8.2)
[2024-02-20 08:02] VITALS: BP 98/45
[2024-02-20] MEDS: POTASSIUM CHLORIDE 10% LIQ 20MEQ/15ML UDC JT ONE (08:11)
[2024-02-20 12:00] VITALS: BP 104/62; TEMP 97.3; O2SAT 99
[2024-02-20 20:03] VITALS: BP 120/76; TEMP 97; O2SAT 98
[2024-02-21 05:43] VITALS: BP 129/91; TEMP 96.8
[2024-02-21 06:15] LABS: BASO % 0.2 % (0.0-1.0); EOS % 0.6 % (0.0-3.0); HEMATOCRIT 29.6 % (36.0-47.0); HEMOGLOBIN 9.4 g/dl (12.0-15.5); LYMPH # 2.5 10^3/uL (1.5-5.0); LYMPH % 39.5 % (24.0-44.0); MEAN CORPUSCULAR HEMOGLOBIN 32.8 pg (27.0-33.0); MEAN CORPUSCULAR HGB CONC 31.8 g/dl (32.0-36.5); MEAN CORPUSCULAR VOLUME 103.1 fl (80.0-96.0); MONO # 0.6 10^3/uL (0.0-0.8); MONO % 9.6 % (2.0-8.0); NEUTROPHILS # 3.1 10^3/uL (1.5-8.5); NEUTROPHILS % 49.8 % (36.0-66.0); PLATELET COUNT, AUTOMATED 236 10^3/uL (150-450); RED BLOOD COUNT 2.87 10^6/uL (4.00-5.40); WHITE BLOOD COUNT 6.2 10^3/uL (4.0-10.0)
[2024-02-21 06:40] LABS: FOLATE 20.35 NG/ML (>5.4); VITAMIN B12 LEVEL 1383 PG/ML (211-911)
[2024-02-21 06:48] LABS: ALBUMIN 2.7 G/DL (3.2-5.2); ALKALINE PHOSPHATASE 215 U/L (46-116); ALT/SGPT 83 U/L (7.0-40); AST/SGOT 41 U/L (<34); BILIRUBIN,TOTAL < 0.2 MG/DL (0.3-1.2); BLOOD UREA NITROGEN 17 MG/DL (9-23); CALCIUM LEVEL 9.9 MG/DL (8.5-10.1); CARBON DIOXIDE LEVEL 24 MMOL/L (20-31); CHLORIDE LEVEL 117 MMOL/L (98-107); CREATININE FOR GFR 0.72 MG/DL (0.55-1.30); GLOMERULAR FILTRATION RATE > 60.0 (>51); GLUCOSE, FASTING 77 MG/DL (60-100); POTASSIUM SERUM 3.6 MMOL/L (3.5-5.1); SODIUM LEVEL 145 MMOL/L (136-145); TOTAL PROTEIN 6.2 G/DL (5.7-8.2)
[2024-02-21] MEDS ORDERED: LEVO75TA4 JT (08:00)
[2024-02-21] MEDS ORDERED: MIDO2.5T JT (08:00)
[2024-02-21] MEDS ORDERED: GUAI100L6 JT (08:00)
[2024-02-21] MEDS ORDERED: ACET160L16 JT (08:00)
[2024-02-21 08:02] VITALS: BP 128/91; TEMP 97.8
[2024-02-21 12:00] VITALS: BP 91/65; TEMP 97
== END 2024-02-21 13:00 | disposition home or self-care (01) | DRG 683 ==
LOC: M ED 07:46 → EDBD 07:46 → M ED INP 16:29 → M MS5PR 21:22
PROVIDERS: ADMIT Internal Medicine Nephrology; ATTEND Internal Medicine Nephrology
DX: N17.9 Acute kidney failure, unspecified (principal); E27.40 Unspecified adrenocortical insufficiency; E87.0 Hyperosmolality and hypernatremia; E87.5 Hyperkalemia; F71 Moderate intellectual disabilities; R13.19 Other dysphagia; H90.3 Sensorineural hearing loss, bilateral; F32.9 Major depressive disorder, single episode, unspecified; F63.81 Intermittent explosive disorder; K21.9 Gastro-esophageal reflux disease without esophagitis; F80.0 Phonological disorder; D50.9 Iron deficiency anemia, unspecified; E78.5 Hyperlipidemia, unspecified; E03.9 Hypothyroidism, unspecified; G89.4 Chronic pain syndrome; K59.09 Other constipation; M17.0 Bilateral primary osteoarthritis of knee; Z93.2 Ileostomy status; Z93.1 Gastrostomy status; Z79.890 Hormone replacement therapy; Z79.899 Other long term (current) drug therapy; E83.52 Hypercalcemia; E86.0 Dehydration; I95.89 Other hypotension; E83.19 Other disorders of iron metabolism; Q12.0 Congenital cataract; E87.6 Hypokalemia

== ENCOUNTER → 2024-02-26 | Outpatient (CLI) | payer MEDICARE, MEDICAID ==
[~2024-02-26] MED LIST changes: +ACET160L16 JT; +GUAI100L6 JT; +MIDO2.5T JT
[2024-02-26 13:30] LABS: ALKALINE PHOSPHATASE 312 U/L (35-104); ALT/SGPT 125 U/L (7.0-40); AST/SGOT 79 U/L (<34); BILIRUBIN,TOTAL < 0.2 MG/DL (0.3-1.2); BLOOD UREA NITROGEN 46 MG/DL (9-23); CALCIUM LEVEL 9.9 MG/DL (8.5-10.1); CARBON DIOXIDE LEVEL 22 MMOL/L (20-31); CHLORIDE LEVEL 107 MMOL/L (98-107); CREATININE FOR GFR 0.86 MG/DL (0.55-1.30); GLOMERULAR FILTRATION RATE > 60.0 (>51); GLUCOSE, FASTING 86 MG/DL (60-100); POTASSIUM SERUM 3.5 MMOL/L (3.5-5.1); SODIUM LEVEL 137 MMOL/L (136-145); TOTAL PROTEIN 7.3 G/DL (5.7-8.2)
== END ==
LOC: M WUC 10:46
PROVIDERS: ATTEND Registered Nurse
DX: E87.5 Hyperkalemia (principal)

== ENCOUNTER 2024-03-05 10:24 | Observation (INO) | payer MEDICARE, MEDICAID ==
[~2024-03-05] VITALS: Ht 170.2 cm; Wt 51.7 kg
[~2024-03-05 10:24] MED LIST changes: -LACT10SO3; +LACT10SO94; -MIDO2.5T GT; -MIDO2.5T JT; +MIDO2.5T3 GT; +MIDO2.5T3 JT
[2024-03-05] MEDS: NS 500 ML IV ONE (11:40)
[2024-03-05 11:57] LABS: BASO % 0.2 % (0.0-1.0); EOS % 0.4 % (0.0-3.0); HEMATOCRIT 35.6 % (36.0-47.0); HEMOGLOBIN 11.1 g/dl (12.0-15.5); LYMPH # 2.3 10^3/uL (1.5-5.0); MEAN CORPUSCULAR HEMOGLOBIN 31.6 pg (27.0-33.0); MEAN CORPUSCULAR HGB CONC 31.2 g/dl (32.0-36.5); MEAN CORPUSCULAR VOLUME 101.4 fl (80.0-96.0); MONO # 0.7 10^3/uL (0.0-0.8); MONO % 6.8 % (2.0-8.0); NEUTROPHILS % 69.1 % (36.0-66.0); PLATELET COUNT, AUTOMATED 388 10^3/uL (150-450); RED BLOOD COUNT 3.51 10^6/uL (4.00-5.40); WHITE BLOOD COUNT 10.2 10^3/uL (4.0-10.0)
[2024-03-05] MEDS ORDERED: ISOVUE-370 76% 100ML VIAL As Ordered ONE (12:04)
[2024-03-05 12:27] LABS: LIPASE 77 U/L (12-53)
[2024-03-05 12:29] LABS: ALBUMIN 3.5 G/DL (3.2-5.2); ALKALINE PHOSPHATASE 379 U/L (35-104); ALT/SGPT 192 U/L (7.0-40); AMYLASE 166 U/L (30-118); AST/SGOT 128 U/L (<34); BILIRUBIN,DIRECT < 0.1 MG/DL (<0.4); BILIRUBIN,TOTAL < 0.2 MG/DL (0.3-1.2); BLOOD UREA NITROGEN 66 MG/DL (9-23); CALCIUM LEVEL 10.5 MG/DL (8.5-10.1); CARBON DIOXIDE LEVEL 23 MMOL/L (20-31); CHLORIDE LEVEL 105 MMOL/L (98-107); CREATININE FOR GFR 1.13 MG/DL (0.55-1.30); GLOMERULAR FILTRATION RATE > 60.0 (>51); GLUCOSE, FASTING 113 MG/DL (60-100); POTASSIUM SERUM 3.6 MMOL/L (3.5-5.1); SODIUM LEVEL 139 MMOL/L (136-145); TOTAL PROTEIN 8.1 G/DL (5.7-8.2)
[2024-03-05] MEDS ORDERED: LEVO75TA4 JT (13:46)
[2024-03-05] MEDS ORDERED: IBUP-1824 JT (13:46)
[2024-03-05] MEDS ORDERED: ACET-907 JT (13:46)
[2024-03-05] MEDS ORDERED: BIOTLIQ3 MT (13:46)
[2024-03-05] MEDS ORDERED: NEOM28OI27 EXT (13:46)
[2024-03-05] MEDS ORDERED: MIDO2.5T3 JT (13:46)
[2024-03-05] MEDS ORDERED: HOME MED LIST COMPLETE! XX SCH (13:50)
[2024-03-05] MEDS ORDERED: ACETAMINOPHEN 325 MG TAB PO PRN (14:30)
[2024-03-05] MEDS ORDERED: NEOSPORIN TOP OINT 15GM TOP PRN (14:30)
[2024-03-05] MEDS ORDERED: BALMEX CREAM 60GM TOP PRN (14:30)
[2024-03-05] MEDS ORDERED: SOD POLYSTYRENE SULFONATE SUSP 15GM 60ML UD GT PRN (14:30)
[2024-03-05 15:09] LABS: PROCALCITONIN 0.11 ng/ml
[2024-03-05] MEDS ORDERED: SODI15SS PO (16:08)
[2024-03-05 16:52] VITALS: BP 92/63; TEMP 97.3; O2SAT 100
[2024-03-05] MEDS: MIDODRINE 2.5 MG TAB JT SCH (17:00)
[2024-03-05] MEDS: LORazepam 0.5 MG TAB JT SCH (17:00)
[2024-03-05] MEDS: D5W/LR 1,000 ML IV SCH (17:01)
[2024-03-05] MEDS: ACETAMINOPHEN 325 MG TAB PO PRN (17:02)
[2024-03-05] MEDS: SIMETHICONE 40MG/0.6ML DROPS 30ML JT SCH (17:02)
[2024-03-05] MEDS: MIRALAX *UNIT DOSE* 17GM PACKET PO PRN (17:02)
[2024-03-05] MEDS: SOD POLYSTYRENE SULFONATE SUSP 15GM 60ML UD PO SCH (18:30)
[2024-03-05 19:56] VITALS: BP 99/69; TEMP 97.9; O2SAT 98
[2024-03-05] MEDS: RISPERIDONE 1 MG TAB JT SCH (20:48)
[2024-03-05] MEDS: MIRALAX *UNIT DOSE* 17GM PACKET PO SCH (20:49)
[2024-03-05] MEDS: TOPIRAMATE (TopAMAX) 25 MG TAB JT SCH (20:49)
[2024-03-05] MEDS: SENOKOT S TAB PO SCH (20:49)
[2024-03-06 03:09] VITALS: BP 90/57; TEMP 97.7; O2SAT 98
[2024-03-06] MEDS: LEVOTHYROXINE 75MCG TABLET (0.075MG) JT SCH (06:31)
[2024-03-06] MEDS: SOD POLYSTYRENE SULFONATE SUSP 15GM 60ML UD PO SCH (06:32)
[2024-03-06 06:44] LABS: HEMATOCRIT 31.4 % (36.0-47.0); MEAN CORPUSCULAR HEMOGLOBIN 31.9 pg (27.0-33.0); MEAN CORPUSCULAR HGB CONC 31.8 g/dl (32.0-36.5); MEAN CORPUSCULAR VOLUME 100.3 fl (80.0-96.0); PLATELET COUNT, AUTOMATED 361 10^3/uL (150-450); RED BLOOD COUNT 3.13 10^6/uL (4.00-5.40); WHITE BLOOD COUNT 7.9 10^3/uL (4.0-10.0)
[2024-03-06 06:58] LABS: ALBUMIN 3.1 G/DL (3.2-5.2); ALKALINE PHOSPHATASE 318 U/L (35-104); ALT/SGPT 155 U/L (7.0-40); AST/SGOT 86 U/L (<34); BILIRUBIN,TOTAL 0.2 MG/DL (0.3-1.2); BLOOD UREA NITROGEN 44 MG/DL (9-23); CALCIUM LEVEL 9.8 MG/DL (8.5-10.1); CARBON DIOXIDE LEVEL 23 MMOL/L (20-31); CHLORIDE LEVEL 111 MMOL/L (98-107); CREATININE FOR GFR 0.97 MG/DL (0.55-1.30); GLOMERULAR FILTRATION RATE > 60.0 (>51); GLUCOSE, FASTING 100 MG/DL (60-100); POTASSIUM SERUM 4.1 MMOL/L (3.5-5.1); SODIUM LEVEL 143 MMOL/L (136-145)
[2024-03-06] MEDS ORDERED: LEVOTHYROXINE 75MCG TABLET (0.075MG) JT SCH (09:00)
[2024-03-06] MEDS ORDERED: PANTOPRAZOLE 40MG TAB (PROTONIX) PO SCH (09:00)
[2024-03-06 12:00] VITALS: BP 98/62; TEMP 97.2; O2SAT 100
[2024-03-06] MEDS: MUPIROCIN 2% OINT 22 GM TUBE TOP SCH (12:50)
[2024-03-06] MEDS ORDERED: ISOVUE-300 61% 100ML VIAL As Ordered ONE (13:28)
[2024-03-06] MEDS: OMEPRAZOLE/SODIUM BICARB 20-840MG 10ML ORAL SYRINGE GT SCH (17:13)
[2024-03-06 20:28] VITALS: BP 90/57; TEMP 97.7; O2SAT 100
[2024-03-06] MEDS: LORazepam 0.5 MG TAB PO PRN (22:11)
[2024-03-07 04:00] VITALS: BP 94/68; TEMP 97.3; O2SAT 100
[2024-03-07] MEDS: ONDANSETRON 4MG 2ML VIAL IV PRN (07:11)
[2024-03-07 08:00] VITALS: BP 96/58; TEMP 96.8; O2SAT 94
[2024-03-07 09:25] LABS: BASO % 0.2 % (0.0-1.0); EOS % 0.3 % (0.0-3.0); HEMATOCRIT 29.1 % (36.0-47.0); HEMOGLOBIN 9.1 g/dl (12.0-15.5); LYMPH # 2.1 10^3/uL (1.5-5.0); LYMPH % 24.1 % (24.0-44.0); MEAN CORPUSCULAR HEMOGLOBIN 32.5 pg (27.0-33.0); MEAN CORPUSCULAR HGB CONC 31.3 g/dl (32.0-36.5); MEAN CORPUSCULAR VOLUME 103.9 fl (80.0-96.0); MONO # 0.7 10^3/uL (0.0-0.8); MONO % 7.5 % (2.0-8.0); NEUTROPHILS # 5.8 10^3/uL (1.5-8.5); NEUTROPHILS % 67.7 % (36.0-66.0); PLATELET COUNT, AUTOMATED 310 10^3/uL (150-450); WHITE BLOOD COUNT 8.6 10^3/uL (4.0-10.0)
[2024-03-07 09:53] LABS: C REACTIVE PROTEIN QUANTITATIV < 0.40 MG/DL (<1.0)
[2024-03-07 10:02] LABS: ALBUMIN 2.8 G/DL (3.2-5.2); ALKALINE PHOSPHATASE 268 U/L (35-104); ALT/SGPT 120 U/L (7.0-40); AST/SGOT 62 U/L (<34); BILIRUBIN,TOTAL < 0.2 MG/DL (0.3-1.2); BLOOD UREA NITROGEN 28 MG/DL (9-23); CALCIUM LEVEL 9.2 MG/DL (8.5-10.1); CARBON DIOXIDE LEVEL 24 MMOL/L (20-31); CHLORIDE LEVEL 116 MMOL/L (98-107); CREATININE FOR GFR 0.84 MG/DL (0.55-1.30); GLOMERULAR FILTRATION RATE > 60.0 (>51); GLUCOSE, FASTING 97 MG/DL (60-100); POTASSIUM SERUM 3.3 MMOL/L (3.5-5.1); SODIUM LEVEL 147 MMOL/L (136-145); TOTAL PROTEIN 6.3 G/DL (5.7-8.2)
[2024-03-07 12:00] VITALS: BP 94/62; TEMP 97.5; O2SAT 100
[2024-03-07] MEDS: POTASSIUM CHLORIDE 10% LIQ 20MEQ/15ML UDC JT ONE (14:39)
[2024-03-07] MEDS ORDERED: POTASSIUM CHLORIDE 10% LIQ 20MEQ/15ML UDC PO ONE (15:00)
[2024-03-07 20:00] VITALS: BP 77/48; TEMP 99; O2SAT 97
[2024-03-07 21:32] VITALS: BP 80/49
[2024-03-07] MEDS: MIDODRINE 2.5 MG TAB JT ONE (21:45)
[2024-03-07 22:25] VITALS: BP 81/50
[2024-03-08] VITALS (9 sets, daily range): BP systolic 72–110; BP diastolic 47–74; TEMP 97.9–98.7; O2SAT 96–100
[2024-03-08 06:21] LABS: BASO % 0.2 % (0.0-1.0); EOS # 0.1 10^3/uL (0.0-0.5); EOS % 0.3 % (0.0-3.0); HEMATOCRIT 26.7 % (36.0-47.0); HEMOGLOBIN 8.3 g/dl (12.0-15.5); LYMPH # 3.1 10^3/uL (1.5-5.0); LYMPH % 18.7 % (24.0-44.0); MEAN CORPUSCULAR HEMOGLOBIN 32.5 pg (27.0-33.0); MEAN CORPUSCULAR HGB CONC 31.1 g/dl (32.0-36.5); MEAN CORPUSCULAR VOLUME 104.7 fl (80.0-96.0); MONO # 0.8 10^3/uL (0.0-0.8); MONO % 4.9 % (2.0-8.0); NEUTROPHILS # 12.7 10^3/uL (1.5-8.5); NEUTROPHILS % 75.5 % (36.0-66.0); PLATELET COUNT, AUTOMATED 284 10^3/uL (150-450); RED BLOOD COUNT 2.55 10^6/uL (4.00-5.40); WHITE BLOOD COUNT 16.8 10^3/uL (4.0-10.0)
[2024-03-08 06:45] LABS: ALBUMIN 2.5 G/DL (3.2-5.2); ALKALINE PHOSPHATASE 226 U/L (35-104); ALT/SGPT 89 U/L (7.0-40); AST/SGOT 46 U/L (<34); BILIRUBIN,TOTAL < 0.2 MG/DL (0.3-1.2); BLOOD UREA NITROGEN 23 MG/DL (9-23); CALCIUM LEVEL 9.4 MG/DL (8.5-10.1); CARBON DIOXIDE LEVEL 25 MMOL/L (20-31); CHLORIDE LEVEL 112 MMOL/L (98-107); CREATININE FOR GFR 0.91 MG/DL (0.55-1.30); GLOMERULAR FILTRATION RATE > 60.0 (>51); GLUCOSE, FASTING 101 MG/DL (60-100); MAGNESIUM LEVEL 1.7 MG/DL (1.8-2.4); POTASSIUM SERUM 3.5 MMOL/L (3.5-5.1); SODIUM LEVEL 143 MMOL/L (136-145); TOTAL PROTEIN 5.8 G/DL (5.7-8.2)
[2024-03-08] MEDS: NS 250 ML IV SCH (14:12)
[2024-03-08] MEDS ORDERED: NS 250 ML IV SCH (14:20)
[2024-03-08] MEDS ORDERED: NS 1,000 ML IV SCH (23:05)
[2024-03-09 04:00] VITALS: BP 95/63; TEMP 97.7; O2SAT 99
[2024-03-09 06:23] LABS: BASO % 0.2 % (0.0-1.0); EOS # 0.1 10^3/uL (0.0-0.5); EOS % 0.6 % (0.0-3.0); HEMATOCRIT 26.6 % (36.0-47.0); HEMOGLOBIN 8.5 g/dl (12.0-15.5); LYMPH # 2.8 10^3/uL (1.5-5.0); LYMPH % 19.9 % (24.0-44.0); MEAN CORPUSCULAR HEMOGLOBIN 33.2 pg (27.0-33.0); MEAN CORPUSCULAR VOLUME 103.9 fl (80.0-96.0); MONO # 1.1 10^3/uL (0.0-0.8); MONO % 7.5 % (2.0-8.0); NEUTROPHILS # 10.1 10^3/uL (1.5-8.5); NEUTROPHILS % 71.4 % (36.0-66.0); PLATELET COUNT, AUTOMATED 260 10^3/uL (150-450); RED BLOOD COUNT 2.56 10^6/uL (4.00-5.40); WHITE BLOOD COUNT 14.1 10^3/uL (4.0-10.0)
[2024-03-09 06:48] LABS: ALBUMIN 2.4 G/DL (3.2-5.2); ALKALINE PHOSPHATASE 200 U/L (35-104); ALT/SGPT 65 U/L (7.0-40); AST/SGOT 29 U/L (<34); BILIRUBIN,TOTAL 0.2 MG/DL (0.3-1.2); BLOOD UREA NITROGEN 15 MG/DL (9-23); CALCIUM LEVEL 9.6 MG/DL (8.5-10.1); CARBON DIOXIDE LEVEL 26 MMOL/L (20-31); CHLORIDE LEVEL 112 MMOL/L (98-107); CREATININE FOR GFR 0.75 MG/DL (0.55-1.30); GLOMERULAR FILTRATION RATE > 60.0 (>51); GLUCOSE, FASTING 95 MG/DL (60-100); MAGNESIUM LEVEL 1.8 MG/DL (1.8-2.4); POTASSIUM SERUM 3.3 MMOL/L (3.5-5.1); SODIUM LEVEL 144 MMOL/L (136-145); TOTAL PROTEIN 5.9 G/DL (5.7-8.2)
[2024-03-09] MEDS: POTASSIUM CHLORIDE 10% LIQ 20MEQ/15ML UDC PO ONE (09:27)
[2024-03-09] MEDS ORDERED: MUPI2OI TOP (10:55)
[2024-03-09] MEDS ORDERED: OMEP90SU GT (10:55)
[2024-03-09 12:00] VITALS: BP 96/62; TEMP 97.3; O2SAT 100
[2024-03-09 12:08] VITALS: BP 97/60
[2024-03-17] MEDS ORDERED: LEVO25TA5 PO (09:49)
== END 2024-03-09 12:43 | disposition home or self-care (01) ==
LOC: M ED 10:24 → M ED INP 14:29 → M MSPAV 16:26
PROVIDERS: ADMIT Hospitalist; ATTEND Hospitalist
DX: R11.10 Vomiting, unspecified (principal); R13.10 Dysphagia, unspecified; K94.23 Gastrostomy malfunction; K59.00 Constipation, unspecified; E86.0 Dehydration; R74.01 Elevation of levels of liver transaminase levels; I95.89 Other hypotension; E46 Unspecified protein-calorie malnutrition; R19.7 Diarrhea, unspecified; F41.9 Anxiety disorder, unspecified; F79 Unspecified intellectual disabilities; Q04.0 Congenital malformations of corpus callosum; Q04.4 Septo-optic dysplasia of brain; F33.9 Major depressive disorder, recurrent, unspecified; F63.81 Intermittent explosive disorder; E03.9 Hypothyroidism, unspecified; E83.19 Other disorders of iron metabolism; D64.9 Anemia, unspecified; E78.5 Hyperlipidemia, unspecified; G89.4 Chronic pain syndrome; Q12.0 Congenital cataract; H90.3 Sensorineural hearing loss, bilateral; Z79.899 Other long term (current) drug therapy; R10.30 Lower abdominal pain, unspecified
CPT/HCPCS: 36415; 49465; 71045; 74018; 74177; 76705; 80047; 80048; 80053; 80076; 81000; 81015; 82150; 83605; 83690; 83735; 84145; 85025; 85027; 86140; 87040; 87086; 87507; 87641; 93041; 96361; 96374; 99285; G0378; J2405; Q9967

== ENCOUNTER → 2024-03-14 | Outpatient (REF) | payer MEDICARE, MEDICAID ==
[~2024-03-14] MED LIST changes: +ACET-907 JT; +BIOTLIQ3 MT; +IBUP-1824 JT; +LEVO25TA5 PO; +MUPI2OI TOP; +NEOM28OI27 EXT; +OMEP90SU GT; +SODI15SS PO
[2024-03-14 10:32] LABS: ALBUMIN 2.6 G/DL (3.2-5.2); ALKALINE PHOSPHATASE 238 U/L (35-104); ALT/SGPT 83 U/L (7.0-40); AST/SGOT 54 U/L (<34); BILIRUBIN,TOTAL < 0.2 MG/DL (0.3-1.2); BLOOD UREA NITROGEN 27 MG/DL (9-23); CALCIUM LEVEL 9.6 MG/DL (8.5-10.1); CARBON DIOXIDE LEVEL 27 MMOL/L (20-31); CHLORIDE LEVEL 110 MMOL/L (98-107); CREATININE FOR GFR 0.72 MG/DL (0.55-1.30); GLOMERULAR FILTRATION RATE > 60.0 (>51); GLUCOSE, FASTING 95 MG/DL (60-100); MAGNESIUM LEVEL 1.8 MG/DL (1.8-2.4); POTASSIUM SERUM 3.7 MMOL/L (3.5-5.1); SODIUM LEVEL 141 MMOL/L (136-145); TOTAL PROTEIN 6.8 G/DL (5.7-8.2)
== END ==
LOC: M LAB REF 09:38
PROVIDERS: ATTEND Registered Nurse
DX: E87.5 Hyperkalemia (principal)

== ENCOUNTER → 2024-03-14 | Outpatient (CLI) | payer MEDICARE, MEDICAID | LOC: M WUC 10:06 | PROVIDERS: ATTEND Registered Nurse | DX: K59.09 Other constipation (principal) ==

== ENCOUNTER → 2024-03-19 | Outpatient (REF) | payer MEDICARE, MEDICAID ==
[2024-03-19 18:24] LABS: ALBUMIN 3.1 G/DL (3.2-5.2); ALKALINE PHOSPHATASE 247 U/L (35-104); ALT/SGPT 139 U/L (7.0-40); AST/SGOT 88 U/L (<34); BILIRUBIN,TOTAL < 0.2 MG/DL (0.3-1.2); BLOOD UREA NITROGEN 32 MG/DL (9-23); CALCIUM LEVEL 10.2 MG/DL (8.5-10.1); CARBON DIOXIDE LEVEL 26 MMOL/L (20-31); CHLORIDE LEVEL 109 MMOL/L (98-107); CREATININE FOR GFR 0.71 MG/DL (0.55-1.30); GLOMERULAR FILTRATION RATE > 60.0 (>51); GLUCOSE, FASTING 85 MG/DL (60-100); POTASSIUM SERUM 4.6 MMOL/L (3.5-5.1); SODIUM LEVEL 143 MMOL/L (136-145)
== END ==
LOC: M LABWUC 16:42
PROVIDERS: ATTEND Registered Nurse
DX: E87.5 Hyperkalemia (principal)

== ENCOUNTER → 2024-03-26 | Outpatient (REF) | payer MEDICARE, MEDICAID ==
[2024-03-26 17:23] LABS: ALBUMIN 3.1 G/DL (3.2-5.2); ALKALINE PHOSPHATASE 228 U/L (35-104); ALT/SGPT 113 U/L (7.0-40); AST/SGOT 69 U/L (<34); BILIRUBIN,TOTAL < 0.2 MG/DL (0.3-1.2); BLOOD UREA NITROGEN 40 MG/DL (9-23); CALCIUM LEVEL 10.2 MG/DL (8.5-10.1); CARBON DIOXIDE LEVEL 28 MMOL/L (20-31); CHLORIDE LEVEL 103 MMOL/L (98-107); CREATININE FOR GFR 0.81 MG/DL (0.55-1.30); GLOMERULAR FILTRATION RATE > 60.0 (>51); GLUCOSE, FASTING 94 MG/DL (60-100); MAGNESIUM LEVEL 1.8 MG/DL (1.8-2.4); POTASSIUM SERUM 4.2 MMOL/L (3.5-5.1); SODIUM LEVEL 138 MMOL/L (136-145); TOTAL PROTEIN 7.2 G/DL (5.7-8.2)
== END ==
LOC: M LABWUC 16:44
PROVIDERS: ATTEND Registered Nurse
DX: E87.5 Hyperkalemia (principal)

== ENCOUNTER → 2024-04-02 | Outpatient (REF) | payer MEDICARE, MEDICAID ==
[2024-04-02 17:57] LABS: ALBUMIN 3.2 G/DL (3.2-5.2); ALKALINE PHOSPHATASE 236 U/L (35-104); ALT/SGPT 120 U/L (7.0-40); AST/SGOT 80 U/L (<34); BILIRUBIN,TOTAL < 0.2 MG/DL (0.3-1.2); BLOOD UREA NITROGEN 46 MG/DL (9-23); CALCIUM LEVEL 10.5 MG/DL (8.5-10.1); CARBON DIOXIDE LEVEL 26 MMOL/L (20-31); CHLORIDE LEVEL 103 MMOL/L (98-107); CREATININE FOR GFR 0.82 MG/DL (0.55-1.30); GLOMERULAR FILTRATION RATE > 60.0 (>51); GLUCOSE, FASTING 94 MG/DL (60-100); MAGNESIUM LEVEL 1.8 MG/DL (1.8-2.4); POTASSIUM SERUM 4.3 MMOL/L (3.5-5.1); SODIUM LEVEL 137 MMOL/L (136-145); TOTAL PROTEIN 7.3 G/DL (5.7-8.2)
== END ==
LOC: M LABWUC 16:28 → M LAB REF 16:28
PROVIDERS: ATTEND Registered Nurse
DX: E87.5 Hyperkalemia (principal)

== ENCOUNTER 2024-04-07 09:17 | Emergency (ER) | payer MEDICARE, MEDICAID ==
[2024-04-07 09:21] VITALS: BP 101/57; TEMP 98; O2SAT 96
== END 2024-04-07 09:42 | disposition left against medical advice (07) ==
LOC: M ED 09:17
DX: Z53.21 Procedure and treatment not carried out due to patient leaving prior to being seen by health care provider (principal)

== ENCOUNTER → 2024-04-09 | Outpatient (CLI) | payer MEDICARE, MEDICAID ==
[2024-04-09 10:30] LABS: ALBUMIN 3.3 G/DL (3.2-5.2); ALKALINE PHOSPHATASE 262 U/L (35-104); ALT/SGPT 168 U/L (7.0-40); AST/SGOT 116 U/L (<34); BILIRUBIN,TOTAL < 0.2 MG/DL (0.3-1.2); BLOOD UREA NITROGEN 37 MG/DL (9-23); CALCIUM LEVEL 10.8 MG/DL (8.5-10.1); CARBON DIOXIDE LEVEL 26 MMOL/L (20-31); CHLORIDE LEVEL 108 MMOL/L (98-107); CREATININE FOR GFR 0.86 MG/DL (0.55-1.30); GLOMERULAR FILTRATION RATE > 60.0 (>51); GLUCOSE, FASTING 78 MG/DL (60-100); MAGNESIUM LEVEL 1.9 MG/DL (1.8-2.4); SODIUM LEVEL 139 MMOL/L (136-145); TOTAL PROTEIN 7.4 G/DL (5.7-8.2)
[2024-04-09 10:31] LABS: FREE T4 0.81 NG/DL (0.89-1.76); THYROID STIMULATING HORMONE 3.978 uIU/ML (0.55-4.78)
[2024-04-09 10:34] LABS: FREE T3 3.7 PG/ML (2.3-4.2)
== END ==
LOC: M WUC 08:20
PROVIDERS: ATTEND Registered Nurse
DX: E03.9 Hypothyroidism, unspecified (principal); E87.5 Hyperkalemia

== ENCOUNTER → 2024-04-09 | Outpatient (CLI) | payer MEDICARE, MEDICAID ==
[~2024-04-09] MED LIST changes: +ISOVUE-300 61% 100ML VIAL As Ordered ONE; +LIDOCAINE 1% MDV 20ML VIAL As Ordered ONE; +LIDOCAINE 2% JELLY 6ML SYRINGE As Ordered ONE
[2024-04-09 09:10] VITALS: BP 104/64; TEMP 95.9; O2SAT 100
== END ==
LOC: M IRPRO 09:07
PROVIDERS: ATTEND Radiology Diagnostic Radiology
DX: T85.528A Displacement of other gastrointestinal prosthetic devices, implants and grafts, initial encounter (principal); R13.10 Dysphagia, unspecified
CPT/HCPCS: 49452; C1752; Q9967

== ENCOUNTER → 2024-04-16 | Outpatient (REF) | payer MEDICARE, MEDICAID ==
[~2024-04-16] MED LIST changes: -ISOVUE-300 61% 100ML VIAL As Ordered ONE; -LIDOCAINE 1% MDV 20ML VIAL As Ordered ONE; -LIDOCAINE 2% JELLY 6ML SYRINGE As Ordered ONE
[2024-04-16 13:09] LABS: ALKALINE PHOSPHATASE 240 U/L (35-104); ALT/SGPT 154 U/L (7.0-40); AST/SGOT 97 U/L (<34); BILIRUBIN,TOTAL < 0.2 MG/DL (0.3-1.2); BLOOD UREA NITROGEN 44 MG/DL (9-23); CALCIUM LEVEL 9.9 MG/DL (8.5-10.1); CARBON DIOXIDE LEVEL 26 MMOL/L (20-31); CHLORIDE LEVEL 106 MMOL/L (98-107); CREATININE FOR GFR 0.81 MG/DL (0.55-1.30); GLOMERULAR FILTRATION RATE > 60.0 (>51); GLUCOSE, FASTING 79 MG/DL (60-100); MAGNESIUM LEVEL 1.8 MG/DL (1.8-2.4); POTASSIUM SERUM 4.4 MMOL/L (3.5-5.1); SODIUM LEVEL 138 MMOL/L (136-145); TOTAL PROTEIN 7.1 G/DL (5.7-8.2)
== END ==
LOC: M LABWUC 11:40
PROVIDERS: ATTEND Registered Nurse
DX: E87.5 Hyperkalemia (principal)

== ENCOUNTER → 2024-04-24 | Outpatient (REF) | payer MEDICARE, MEDICAID ==
[2024-04-24 14:07] LABS: ALBUMIN 3.4 G/DL (3.2-5.2); ALKALINE PHOSPHATASE 247 U/L (35-104); ALT/SGPT 181 U/L (7.0-40); AST/SGOT 112 U/L (<34); BILIRUBIN,TOTAL < 0.2 MG/DL (0.3-1.2); BLOOD UREA NITROGEN 56 MG/DL (9-23); CALCIUM LEVEL 9.6 MG/DL (8.5-10.1); CARBON DIOXIDE LEVEL 22 MMOL/L (20-31); CHLORIDE LEVEL 107 MMOL/L (98-107); CREATININE FOR GFR 0.84 MG/DL (0.55-1.30); GLOMERULAR FILTRATION RATE > 60.0 (>51); GLUCOSE, FASTING 97 MG/DL (60-100); MAGNESIUM LEVEL 2.1 MG/DL (1.8-2.4); POTASSIUM SERUM 4.9 MMOL/L (3.5-5.1); SODIUM LEVEL 138 MMOL/L (136-145); TOTAL PROTEIN 7.1 G/DL (5.7-8.2)
== END ==
LOC: M LABDRAWC 13:04
PROVIDERS: ATTEND Registered Nurse
DX: E87.5 Hyperkalemia (principal)

== ENCOUNTER → 2024-05-04 | Outpatient (CLI) | payer MEDICARE, MEDICAID ==
[2024-05-04 11:30] LABS: ALBUMIN 3.2 G/DL (3.2-5.2); ALKALINE PHOSPHATASE 245 U/L (35-104); ALT/SGPT 164 U/L (7.0-40); AST/SGOT 94 U/L (<34); BILIRUBIN,TOTAL 0.2 MG/DL (0.3-1.2); BLOOD UREA NITROGEN 48 MG/DL (9-23); CALCIUM LEVEL 9.8 MG/DL (8.5-10.1); CARBON DIOXIDE LEVEL 26 MMOL/L (20-31); CHLORIDE LEVEL 107 MMOL/L (98-107); CREATININE FOR GFR 0.99 MG/DL (0.55-1.30); GLOMERULAR FILTRATION RATE > 60.0 (>51); GLUCOSE, FASTING 86 MG/DL (60-100); MAGNESIUM LEVEL 2.1 MG/DL (1.8-2.4); SODIUM LEVEL 139 MMOL/L (136-145); TOTAL PROTEIN 6.8 G/DL (5.7-8.2)
== END ==
LOC: M LAB 10:26
PROVIDERS: ATTEND Registered Nurse
DX: E87.5 Hyperkalemia (principal)

== ENCOUNTER → 2024-05-09 | Outpatient (REF) | payer MEDICARE, MEDICAID ==
[2024-05-09 18:34] LABS: ALBUMIN 3.3 G/DL (3.2-5.2); ALKALINE PHOSPHATASE 242 U/L (35-104); ALT/SGPT 151 U/L (7.0-40); AST/SGOT 92 U/L (<34); BILIRUBIN,TOTAL < 0.2 MG/DL (0.3-1.2); BLOOD UREA NITROGEN 56 MG/DL (9-23); CALCIUM LEVEL 9.8 MG/DL (8.5-10.1); CARBON DIOXIDE LEVEL 25 MMOL/L (20-31); CHLORIDE LEVEL 106 MMOL/L (98-107); CREATININE FOR GFR 0.99 MG/DL (0.55-1.30); GLOMERULAR FILTRATION RATE > 60.0 (>51); GLUCOSE, FASTING 103 MG/DL (60-100); MAGNESIUM LEVEL 1.9 MG/DL (1.8-2.4); POTASSIUM SERUM 4.2 MMOL/L (3.5-5.1); SODIUM LEVEL 138 MMOL/L (136-145)
== END ==
LOC: M LABWUC 16:24
PROVIDERS: ATTEND Registered Nurse
DX: E87.5 Hyperkalemia (principal)

== ENCOUNTER → 2024-05-16 | Outpatient (CLI) | payer MEDICARE, MEDICAID ==
[2024-05-16 14:57] LABS: ALBUMIN 3.3 G/DL (3.2-5.2); ALKALINE PHOSPHATASE 242 U/L (35-104); ALT/SGPT 139 U/L (7.0-40); AST/SGOT 89 U/L (<34); BILIRUBIN,TOTAL < 0.2 MG/DL (0.3-1.2); BLOOD UREA NITROGEN 44 MG/DL (9-23); CALCIUM LEVEL 10.3 MG/DL (8.5-10.1); CARBON DIOXIDE LEVEL 24 MMOL/L (20-31); CHLORIDE LEVEL 106 MMOL/L (98-107); CREATININE FOR GFR 0.91 MG/DL (0.55-1.30); GLOMERULAR FILTRATION RATE > 60.0 (>51); GLUCOSE, FASTING 83 MG/DL (60-100); POTASSIUM SERUM 4.8 MMOL/L (3.5-5.1); SODIUM LEVEL 140 MMOL/L (136-145); TOTAL PROTEIN 7.4 G/DL (5.7-8.2)
== END ==
LOC: M PLALAB 08:55
PROVIDERS: ATTEND Registered Nurse
DX: E87.5 Hyperkalemia (principal)

== ENCOUNTER → 2024-05-23 | Outpatient (CLI) | payer MEDICARE, MEDICAID ==
[2024-05-23 14:32] LABS: ALBUMIN 3.2 G/DL (3.2-5.2); ALKALINE PHOSPHATASE 234 U/L (35-104); ALT/SGPT 151 U/L (7.0-40); AST/SGOT 105 U/L (<34); BILIRUBIN,TOTAL < 0.2 MG/DL (0.3-1.2); BLOOD UREA NITROGEN 52 MG/DL (9-23); CALCIUM LEVEL 10.1 MG/DL (8.5-10.1); CARBON DIOXIDE LEVEL 27 MMOL/L (20-31); CHLORIDE LEVEL 101 MMOL/L (98-107); CREATININE FOR GFR 0.82 MG/DL (0.55-1.30); GLOMERULAR FILTRATION RATE > 60.0 (>51); GLUCOSE, FASTING 98 MG/DL (60-100); SODIUM LEVEL 138 MMOL/L (136-145); TOTAL PROTEIN 7.1 G/DL (5.7-8.2)
== END ==
LOC: M PLALAB 09:24
PROVIDERS: ATTEND Registered Nurse
DX: E87.5 Hyperkalemia (principal)

== ENCOUNTER → 2024-06-23 | Outpatient (REF) | payer MEDICARE, MEDICAID ==
[2024-06-23 16:45] LABS: APPEARANCE, URINE HAZY (CLEAR); BACTERIA, URINE AUTO NEGATIVE (NEGATIVE); BILIRUBIN, URINE AUTO NEGATIVE (NEGATIVE); BLOOD, URINE BLOOD NEGATIVE (NEGATIVE); COLOR, URINE YELLOW (YELLOW); GLUCOSE, URINE (UA) AUTO NEGATIVE (NEGATIVE); KETONE, URINE AUTO NEGATIVE (NEGATIVE); LEUKOCYTE ESTERASE, URINE AUTO 3+ (NEGATIVE); NITRITE, URINE AUTO NEGATIVE (NEGATIVE); PROTEIN, URINE AUTO NEGATIVE (NEGATIVE); RBC, URINE AUTO 1 /HPF (0-3); SPECIFIC GRAVITY URINE AUTO 1.013 (1.002-1.035); SQUAMOUS EPITHELIAL CELL UR AU 2 /HPF (0-6); UROBILINOGEN, URINE AUTO 0.2 mg/dL (0.0-2.0); WBC, URINE AUTO 93 /HPF (0-3)
== END ==
LOC: M SMT 16:10
PROVIDERS: ATTEND Physician Assistant
DX: R39.9 Unspecified symptoms and signs involving the genitourinary system (principal)

== ENCOUNTER 2024-06-24 08:44 | Emergency (ER) | payer MEDICARE, MEDICAID ==
[~2024-06-24] VITALS: Ht 165.1 cm; Wt 70.5 kg
[2024-06-24 12:03] VITALS: TEMP 96.5; O2SAT 100
[2024-06-24 13:25] VITALS: BP 107/54
== END 2024-06-24 14:50 | disposition home or self-care (01) ==
LOC: M ED 08:44
DX: K94.23 Gastrostomy malfunction (principal); F79 Unspecified intellectual disabilities; Z79.899 Other long term (current) drug therapy

== ENCOUNTER → 2024-06-30 | Outpatient (CLI) | payer MEDICARE, MEDICAID ==
[2024-06-30 17:39] LABS: HEMOGLOBIN 10.9 g/dl (12.0-15.5); MEAN CORPUSCULAR HEMOGLOBIN 31.5 pg (27.0-33.0); MEAN CORPUSCULAR HGB CONC 31.1 g/dl (32.0-36.5); MEAN CORPUSCULAR VOLUME 101.2 fl (80.0-96.0); PLATELET COUNT, AUTOMATED 321 10^3/uL (150-450); RED BLOOD COUNT 3.46 10^6/uL (4.00-5.40); WHITE BLOOD COUNT 7.4 10^3/uL (4.0-10.0)
[2024-06-30 17:58] LABS: CREATININE FOR GFR 1.08 MG/DL (0.55-1.30); GLOMERULAR FILTRATION RATE 56.3 (>51)
== END ==
LOC: M WUC 15:47
PROVIDERS: ATTEND Registered Nurse
DX: Z93.2 Ileostomy status (principal); Z79.899 Other long term (current) drug therapy

== ENCOUNTER → 2024-07-01 | Outpatient (CLI) | payer MEDICARE, MEDICAID ==
[~2024-07-01] MED LIST changes: +ISOVUE-300 61% 100ML VIAL As Ordered ONE; +LIDOCAINE 2% JELLY 6ML SYRINGE As Ordered ONE; +MIDAZOLAM INJ 2MG/2ML VIAL As Ordered ONE
[2024-07-01 14:15] VITALS: TEMP 96.1
[2024-07-01] MEDS: MIDAZOLAM INJ 2MG/2ML VIAL IV PRN (15:25)
[2024-07-01] MEDS: LIDOCAINE 2% JELLY 6ML SYRINGE TOP ONE (15:47)
[2024-07-01] MEDS: NS 500 ML IV ONE (15:47)
[2024-07-01] MEDS: ISOVUE-300 61% 100ML VIAL IV ONE (15:49)
[2024-07-01 15:55] VITALS: BP 96/58; O2SAT 100
== END ==
LOC: M IRPRO 13:52
PROVIDERS: ATTEND Radiology Diagnostic Radiology
DX: K94.23 Gastrostomy malfunction (principal)
CPT/HCPCS: 49452; J2250; Q9967

== ENCOUNTER → 2024-07-04 | Outpatient (CLI) | payer MEDICARE, MEDICAID ==
[~2024-07-04] MED LIST changes: -ISOVUE-300 61% 100ML VIAL As Ordered ONE; -LIDOCAINE 2% JELLY 6ML SYRINGE As Ordered ONE; -MIDAZOLAM INJ 2MG/2ML VIAL As Ordered ONE
[2024-07-04 14:39] LABS: ALBUMIN 3.3 G/DL (3.2-5.2); ALKALINE PHOSPHATASE 282 U/L (35-104); ALT/SGPT 144 U/L (7.0-40); AST/SGOT 101 U/L (<34); BILIRUBIN,TOTAL < 0.2 MG/DL (0.3-1.2); BLOOD UREA NITROGEN 55 MG/DL (9-23); CALCIUM LEVEL 9.8 MG/DL (8.5-10.1); CARBON DIOXIDE LEVEL 22 MMOL/L (20-31); CHLORIDE LEVEL 101 MMOL/L (98-107); CREATININE FOR GFR 0.94 MG/DL (0.55-1.30); GLOMERULAR FILTRATION RATE > 60.0 (>51); GLUCOSE, FASTING 94 MG/DL (60-100); POTASSIUM SERUM 4.2 MMOL/L (3.5-5.1); SODIUM LEVEL 139 MMOL/L (136-145); TOTAL PROTEIN 7.2 G/DL (5.7-8.2)
== END ==
LOC: M PLALAB 12:04
PROVIDERS: ATTEND Registered Nurse
DX: R74.01 Elevation of levels of liver transaminase levels (principal)

== ENCOUNTER → 2024-07-07 | Outpatient (REF) | payer MEDICARE, MEDICAID ==
[2024-07-07 13:54] LABS: BASO % 0.4 % (0.0-1.0); EOS # 0.1 10^3/uL (0.0-0.5); EOS % 0.9 % (0.0-3.0); HEMATOCRIT 31.4 % (36.0-47.0); HEMOGLOBIN 9.9 g/dl (12.0-15.5); LYMPH % 25.2 % (24.0-44.0); MEAN CORPUSCULAR HEMOGLOBIN 32.2 pg (27.0-33.0); MEAN CORPUSCULAR HGB CONC 31.5 g/dl (32.0-36.5); MEAN CORPUSCULAR VOLUME 102.3 fl (80.0-96.0); MONO % 12.8 % (2.0-8.0); NEUTROPHILS # 4.8 10^3/uL (1.5-8.5); NEUTROPHILS % 60.3 % (36.0-66.0); PLATELET COUNT, AUTOMATED 248 10^3/uL (150-450); RED BLOOD COUNT 3.07 10^6/uL (4.00-5.40)
[2024-07-07 14:11] LABS: HEMOGLOBIN A1c 4.8 % (4.0-6.0)
[2024-07-07 14:19] LABS: ALBUMIN 3.2 G/DL (3.2-5.2); ALKALINE PHOSPHATASE 288 U/L (35-104); ALT/SGPT 164 U/L (7.0-40); AST/SGOT 111 U/L (<34); BILIRUBIN,TOTAL < 0.2 MG/DL (0.3-1.2); BLOOD UREA NITROGEN 64 MG/DL (9-23); CALCIUM LEVEL 9.7 MG/DL (8.5-10.1); CARBON DIOXIDE LEVEL 21 MMOL/L (20-31); CHLORIDE LEVEL 106 MMOL/L (98-107); CHOLESTEROL LEVEL 251 MG/DL (<200); CHOLESTEROL RISK RATIO 2.92 (<5); CREATININE FOR GFR 1.12 MG/DL (0.55-1.30); GLUCOSE, FASTING 94 MG/DL (60-100); HDL CHOLESTEROL 85.8 MG/DL (>40); LDL CHOLESTEROL 125.4 MG/DL (<100); NON-HDL-C 165.2 MG/DL; POTASSIUM SERUM 3.9 MMOL/L (3.5-5.1); SODIUM LEVEL 137 MMOL/L (136-145); TOTAL PROTEIN 7.1 G/DL (5.7-8.2); TRIGLYCERIDES LEVEL 199 MG/DL (<150)
[2024-07-07 14:20] LABS: THYROID STIMULATING HORMONE 2.386 uIU/ML (0.55-4.78)
[2024-07-07 14:21] LABS: FREE T4 0.89 NG/DL (0.89-1.76)
[2024-07-07 14:47] LABS: HIV 1&2 SCREEN NEGATIVE (NEGATIVE)
[2024-07-07 14:54] LABS: HEPATITIS C VIRUS ABY INDEX 0.04 INDEX (<0.8)
== END ==
LOC: M SFHCPLAZ 12:49
PROVIDERS: ATTEND Student in an Organized Health Care Education/Training Program
DX: Z76.89 Persons encountering health services in other specified circumstances (principal); Z93.1 Gastrostomy status; Z79.899 Other long term (current) drug therapy

== ENCOUNTER → 2024-08-12 | Outpatient (CLI) | payer MEDICARE, MEDICAID | LOC: M WHC 10:43 | PROVIDERS: ATTEND Student in an Organized Health Care Education/Training Program | DX: Z12.31 Encounter for screening mammogram for malignant neoplasm of breast (principal) ==

== ENCOUNTER 2024-09-07 14:24 | Inpatient (IN) | payer MEDICARE, MEDICAID ==
[~2024-09-07] VITALS: Ht 162.6 cm; Wt 55.8 kg
[~2024-09-07 14:24] MED LIST changes: -ESSE250T JT; -FLOM0.4C39 PO; +MAGN250T17 JT; +TAMS-18 PO
[2024-09-07] MEDS: NS (Normal Saline) 0.9% 1,000 ML IV ONE (14:55)
[2024-09-07 15:13] LABS: VENOUS BASE EXCESS -4.3 (-2.0-2.0); VENOUS HCO3 21.1 MMOL/L (23.0-27.0); VENOUS O2 SATURATION 96.3 % (60.0-80.0); VENOUS PARTIAL PRESSURE CO2 40.1 mmHg (38.0-50.0); VENOUS PARTIAL PRESSURE O2 88.4 mmHg (30.0-50.0); VENOUS STANDARD HCO3 20.9 MMOL/L; VENOUS TOTAL CO2 22.4 MMOL/L (24.0-28.0)
[2024-09-07 15:17] LABS: HEMATOCRIT 23.9 % (36.0-47.0); HEMOGLOBIN 7.6 g/dl (12.0-15.5); MEAN CORPUSCULAR HEMOGLOBIN 32.5 pg (27.0-33.0); MEAN CORPUSCULAR HGB CONC 31.8 g/dl (32.0-36.5); MEAN CORPUSCULAR VOLUME 102.1 fl (80.0-96.0); PLATELET COUNT, AUTOMATED 231 10^3/uL (150-450); RED BLOOD COUNT 2.34 10^6/uL (4.00-5.40); WHITE BLOOD COUNT 4.9 10^3/uL (4.0-10.0)
[2024-09-07 15:43] LABS: ATYPICAL LYMPH 4 % (0-5); LYMPHOCYTES 25 % (16-44); MONOCYTES 6 % (0-5); NEUTROPHILS 62 % (28-66); PLATELET ESTIMATE NORMAL (NORMAL); STOMATOCYTES 2+
[2024-09-07 15:45] LABS: HEMATOCRIT 23.9 % (36.0-47.0); HEMOGLOBIN 7.5 g/dl (12.0-15.5); MEAN CORPUSCULAR HEMOGLOBIN 32.2 pg (27.0-33.0); MEAN CORPUSCULAR HGB CONC 31.4 g/dl (32.0-36.5); MEAN CORPUSCULAR VOLUME 102.6 fl (80.0-96.0); PLATELET COUNT, AUTOMATED 218 10^3/uL (150-450); RED BLOOD COUNT 2.33 10^6/uL (4.00-5.40); WHITE BLOOD COUNT 4.3 10^3/uL (4.0-10.0)
[2024-09-07 15:50] LABS: THYROID STIMULATING HORMONE 2.432 uIU/ML (0.55-4.78)
[2024-09-07 15:57] LABS: ALBUMIN 2.5 G/DL (3.2-5.2); ALKALINE PHOSPHATASE 237 U/L (35-104); ALT/SGPT 106 U/L (7.0-40); AST/SGOT 76 U/L (<34); BILIRUBIN,DIRECT < 0.1 MG/DL (<0.4); BILIRUBIN,TOTAL < 0.2 MG/DL (0.3-1.2); BLOOD UREA NITROGEN 31 MG/DL (9-23); CALCIUM LEVEL 8.2 MG/DL (8.5-10.1); CARBON DIOXIDE LEVEL 24 MMOL/L (20-31); CHLORIDE LEVEL 107 MMOL/L (98-107); GLUCOSE, FASTING 88 MG/DL (60-100); POTASSIUM SERUM 4.4 MMOL/L (3.5-5.1); SODIUM LEVEL 138 MMOL/L (136-145); TOTAL PROTEIN 5.9 G/DL (5.7-8.2)
[2024-09-07 16:09] LABS: KETONE, URINE AUTO RFX NEGATIVE (NEGATIVE); LEUKOCYTE ESTERASE UR AUTO RFX NEGATIVE (NEGATIVE); NITRITE, URINE AUTO RFX NEGATIVE (NEGATIVE); RBC, URINE AUTO RFX 0 /HPF (0-3); SQUAM EPITHELIAL CELL UR AURFX 2 /HPF (0-6); WBC, URINE AUTO RFX 1 /HPF (0-3)
[2024-09-07] MEDS: cefTRIAXone SOD 2 GM in DEXTROSE 5% (D5W) ADV/MINI-BAG 50 ML IV ONE (16:57)
[2024-09-07 16:59] LABS: CORTISOL PM 9.5 UG/DL (3.1-16.7)
[2024-09-07] MEDS: HYDROCORTISONE 100MG/2ML VIAL IV ONE (18:10)
[2024-09-07] MEDS: NS 500 ML IV ONE (18:10)
[2024-09-07] MEDS ORDERED: ISOVUE-370 76% 100ML VIAL As Ordered ONE (20:35)
[2024-09-07] MEDS ORDERED: MIDODRINE 5 MG TAB PO ONE (21:10)
[2024-09-07] MEDS ORDERED: ACETAMINOPHEN 325 MG TAB PO PRN (21:20)
[2024-09-07] MEDS ORDERED: MOM 30ML SUSPENSION UDC PO PRN (21:20)
[2024-09-07] MEDS ORDERED: MOM 30ML SUSPENSION UDC JT PRN (21:45)
[2024-09-07 22:03] LABS: HEMATOCRIT 24.8 % (36.0-47.0); HEMOGLOBIN 7.7 g/dl (12.0-15.5); MEAN CORPUSCULAR HEMOGLOBIN 31.8 pg (27.0-33.0); MEAN CORPUSCULAR VOLUME 102.5 fl (80.0-96.0); PLATELET COUNT, AUTOMATED 231 10^3/uL (150-450); RED BLOOD COUNT 2.42 10^6/uL (4.00-5.40); WHITE BLOOD COUNT 5.5 10^3/uL (4.0-10.0)
[2024-09-07 22:16] LABS: INR 0.98; PARTIAL THROMBOPLASTIN TIME 37.3 SECONDS (24.8-34.2); PROTHROMBIN TIME 13.3 SECONDS (12.5-14.5)
[2024-09-07] MEDS: PANTOPRAZOLE 40MG VIAL IV SCH (22:16)
[2024-09-07] MEDS: MIDODRINE 5 MG TAB JT ONE (22:16)
[2024-09-07] MEDS: LR 1,000 ML IV SCH (22:17)
[2024-09-07 22:33] LABS: PERCENT SATURATION 14.7 % (13.2-45.0)
[2024-09-07 22:35] LABS: FOLATE 22.93 NG/ML (>5.4)
[2024-09-07 22:56] VITALS: BP 114/56; TEMP 97.8; O2SAT 100
[2024-09-07] MEDS ORDERED: SODI15SS JT (23:55)
[2024-09-08] VITALS (19 sets, daily range): BP systolic 85–104; BP diastolic 51–65; TEMP 97–98.8; O2SAT 90–99
[2024-09-08] MEDS ORDERED: HOME MED LIST COMPLETE! XX SCH
[2024-09-08 02:11] LABS: HEMATOCRIT 24.7 % (36.0-47.0); HEMOGLOBIN 7.7 g/dl (12.0-15.5); MEAN CORPUSCULAR HGB CONC 31.2 g/dl (32.0-36.5); MEAN CORPUSCULAR VOLUME 102.5 fl (80.0-96.0); PLATELET COUNT, AUTOMATED 246 10^3/uL (150-450); RED BLOOD COUNT 2.41 10^6/uL (4.00-5.40); WHITE BLOOD COUNT 5.8 10^3/uL (4.0-10.0)
[2024-09-08] MEDS: LR 1,000 ML IV ONE (05:21)
[2024-09-08] MEDS: LEVOTHYROXINE 25MCG TABLET (0.025MG) JT SCH (06:01)
[2024-09-08 06:08] LABS: HEMATOCRIT 22.8 % (36.0-47.0); HEMOGLOBIN 7.1 g/dl (12.0-15.5); MEAN CORPUSCULAR HEMOGLOBIN 31.8 pg (27.0-33.0); MEAN CORPUSCULAR HGB CONC 31.1 g/dl (32.0-36.5); MEAN CORPUSCULAR VOLUME 102.2 fl (80.0-96.0); PLATELET COUNT, AUTOMATED 246 10^3/uL (150-450); RED BLOOD COUNT 2.23 10^6/uL (4.00-5.40); WHITE BLOOD COUNT 5.7 10^3/uL (4.0-10.0)
[2024-09-08 06:17] LABS: ERYTHROCYTE SEDIMENTATION RATE 35 mm/hr (0-30)
[2024-09-08 06:34] LABS: C REACTIVE PROTEIN QUANTITATIV 4.15 MG/DL (<1.0); CALCIUM LEVEL 8.2 MG/DL (8.5-10.1); CREATININE FOR GFR 0.98 MG/DL (0.55-1.30); GLOMERULAR FILTRATION RATE 68.6 (>51); POTASSIUM SERUM 4.4 MMOL/L (3.5-5.1)
[2024-09-08] MEDS: MIDODRINE 5 MG TAB JT SCH (07:07)
[2024-09-08] MEDS: TOPIRAMATE 25 MG JT SCH (07:08)
[2024-09-08] MEDS: COSYNTROPIN 0.25 MG/ML 1ML VIAL IV ONE (07:55)
[2024-09-08] MEDS: SALIVA SUBSTITUTE BTL MT SCH (07:58)
[2024-09-08] MEDS: CARBAMIDE PEROXIDE 6.5% OTIC SOLN 15ML AU SCH (07:59)
[2024-09-08] MEDS: POLYVINYL ALCOHOL OPHTH SOLN 15ML (LIQUITEARS) OU SCH (07:59)
[2024-09-08] MEDS: RISPERIDONE 1 MG TAB JT SCH (07:59)
[2024-09-08] MEDS ORDERED: MIDODRINE 5 MG TAB PO SCH (08:00)
[2024-09-08] MEDS ORDERED: MIDODRINE 5 MG TAB JT SCH (08:00)
[2024-09-08] MEDS: NS 500 ML IV ONE (08:28)
[2024-09-08] MEDS: SIMETHICONE 40MG/0.6ML DROPS 30ML JT SCH (11:24)
[2024-09-08] MEDS: HYDROCORTISONE 100MG/2ML VIAL IV SCH (11:53)
[2024-09-08 13:57] LABS: MEAN CORPUSCULAR HEMOGLOBIN 31.8 pg (27.0-33.0); MEAN CORPUSCULAR HGB CONC 32.4 g/dl (32.0-36.5); MEAN CORPUSCULAR VOLUME 98.3 fl (80.0-96.0); PLATELET COUNT, AUTOMATED 213 10^3/uL (150-450); RED BLOOD COUNT 2.86 10^6/uL (4.00-5.40); WHITE BLOOD COUNT 7.3 10^3/uL (4.0-10.0)
[2024-09-08 14:06] LABS: HEMATOCRIT 28.1 % (36.0-47.0); HEMOGLOBIN 9.1 g/dl (12.0-15.5)
[2024-09-08] MEDS: LORazepam 0.5 MG TAB JT SCH (15:48)
[2024-09-08 15:50] LABS: HEMATOCRIT 28.8 % (36.0-47.0); HEMOGLOBIN 9.3 g/dl (12.0-15.5)
[2024-09-08] MEDS: SUCRALFATE SUSP 1GM/10ML UD GT SCH (17:25)
[2024-09-09 03:22] VITALS: BP 97/62; TEMP 97.8; O2SAT 98
[2024-09-09 07:51] VITALS: BP 98/60; TEMP 97.7; O2SAT 98
[2024-09-09 08:04] LABS: HEMATOCRIT 28.9 % (36.0-47.0); HEMOGLOBIN 9.4 g/dl (12.0-15.5); MEAN CORPUSCULAR HEMOGLOBIN 31.2 pg (27.0-33.0); MEAN CORPUSCULAR HGB CONC 32.5 g/dl (32.0-36.5); PLATELET COUNT, AUTOMATED 230 10^3/uL (150-450); RED BLOOD COUNT 3.01 10^6/uL (4.00-5.40); WHITE BLOOD COUNT 8.5 10^3/uL (4.0-10.0)
[2024-09-09 08:31] LABS: CALCIUM LEVEL 8.7 MG/DL (8.5-10.1); CREATININE FOR GFR 0.88 MG/DL (0.55-1.30); GLOMERULAR FILTRATION RATE 78.1 (>51)
[2024-09-09 11:56] VITALS: BP 109/68; TEMP 97.6; O2SAT 97
[2024-09-09 16:36] VITALS: BP 95/60; TEMP 97.5; O2SAT 97
[2024-09-09 20:42] VITALS: BP 118/75; TEMP 97.3
[2024-09-09] MEDS: LORazepam 2 MG/ML 1ML VIAL IM STA (22:31)
[2024-09-10] VITALS (8 sets, daily range): BP systolic 112–119; BP diastolic 75–84; TEMP 97–97.5; O2SAT 97–100
[2024-09-10 08:15] LABS: HEMATOCRIT 29.3 % (36.0-47.0); HEMOGLOBIN 9.5 g/dl (12.0-15.5); MEAN CORPUSCULAR HEMOGLOBIN 31.8 pg (27.0-33.0); MEAN CORPUSCULAR HGB CONC 32.4 g/dl (32.0-36.5); PLATELET COUNT, AUTOMATED 242 10^3/uL (150-450); RED BLOOD COUNT 2.99 10^6/uL (4.00-5.40); WHITE BLOOD COUNT 11.2 10^3/uL (4.0-10.0)
[2024-09-10] MEDS: ACETAMINOPHEN 325 MG TAB JT PRN (08:28)
[2024-09-10 08:32] LABS: CALCIUM LEVEL 8.9 MG/DL (8.5-10.1); CREATININE FOR GFR 0.86 MG/DL (0.55-1.30); GLOMERULAR FILTRATION RATE 80.2 (>51); POTASSIUM SERUM 4.1 MMOL/L (3.5-5.1)
[2024-09-10] MEDS: D5W 1,000 ML IV SCH (18:40)
[2024-09-11 05:09] VITALS: BP 114/73; TEMP 97; O2SAT 100
[2024-09-11 07:13] LABS: PROCALCITONIN 0.09 ng/ml
[2024-09-11 07:56] LABS: BLOOD UREA NITROGEN 20 MG/DL (9-23); CALCIUM LEVEL 8.5 MG/DL (8.5-10.1); CARBON DIOXIDE LEVEL 25 MMOL/L (20-31); CHLORIDE LEVEL 107 MMOL/L (98-107); CREATININE FOR GFR 0.75 MG/DL (0.55-1.30); GLOMERULAR FILTRATION RATE > 90.0 (>51); GLUCOSE, FASTING 110 MG/DL (60-100); MAGNESIUM LEVEL 1.8 MG/DL (1.8-2.4); POTASSIUM SERUM 3.4 MMOL/L (3.5-5.1); SODIUM LEVEL 142 MMOL/L (136-145)
[2024-09-11 08:00] VITALS: BP 110/73; TEMP 96.8; O2SAT 100
[2024-09-11 08:02] LABS: HEMATOCRIT 29.5 % (36.0-47.0); HEMOGLOBIN 9.4 g/dl (12.0-15.5); MEAN CORPUSCULAR HEMOGLOBIN 31.5 pg (27.0-33.0); MEAN CORPUSCULAR HGB CONC 31.9 g/dl (32.0-36.5); PLATELET COUNT, AUTOMATED 235 10^3/uL (150-450); RED BLOOD COUNT 2.98 10^6/uL (4.00-5.40); WHITE BLOOD COUNT 9.8 10^3/uL (4.0-10.0)
[2024-09-11] MEDS: KCL 10MEQ/100ML SWI (KRUN) 10 MEQ in IV 1 EA IV SCH (10:23)
[2024-09-11 12:00] VITALS: BP 99/69; TEMP 97.7; O2SAT 100
[2024-09-11] MEDS ORDERED: PANT40TA29 PO (15:36)
[2024-09-11] MEDS ORDERED: MIDO5TA JT (15:36)
[2024-09-11] MEDS ORDERED: HYDR-4468 PO (15:36)
[2024-09-11] MEDS ORDERED: SUCR1ORA GT (16:09)
[2024-09-11] MEDS ORDERED: HYDR-4468 JT (16:23)
== END 2024-09-11 17:10 | disposition home or self-care (01) | DRG 314 ==
LOC: EDBD 14:24 → M ED 14:24 → M ED INP 21:19 → M PCU 22:46 → M MSPAV 09-09 17:47
PROVIDERS: ADMIT Student in an Organized Health Care Education/Training Program; ATTEND Student in an Organized Health Care Education/Training Program
PROC: 30233N1 Transfusion of Nonautologous Red Blood Cells into Peripheral Vein, Percutaneous Approach (ICD-10-PCS; principal; 2024-09-08)
DX: I95.89 Other hypotension (principal); Q04.0 Congenital malformations of corpus callosum; J12.9 Viral pneumonia, unspecified; Q04.8 Other specified congenital malformations of brain; K92.2 Gastrointestinal hemorrhage, unspecified; F79 Unspecified intellectual disabilities; F32.A Depression, unspecified; R13.10 Dysphagia, unspecified; K31.84 Gastroparesis; E78.5 Hyperlipidemia, unspecified; G89.4 Chronic pain syndrome; K21.9 Gastro-esophageal reflux disease without esophagitis; E03.9 Hypothyroidism, unspecified; D64.9 Anemia, unspecified; R74.01 Elevation of levels of liver transaminase levels; B34.8 Other viral infections of unspecified site; I44.0 Atrioventricular block, first degree; Z79.890 Hormone replacement therapy; Z79.899 Other long term (current) drug therapy

== ENCOUNTER → 2024-11-20 | Outpatient (CLI) | payer MEDICARE, MEDICAID ==
[~2024-11-20] MED LIST changes: -DEPA250T32 PO; +DIVA-65 PO; +FLUD0.1T JT; +HYDR-4468 PO; +MIDO5TA JT; +NEXI40GR PO; +PANT40TA29 PO; +RISP0.253 JT; +SODI15SS JT; +SUCR1ORA GT
[2024-11-20 15:15] LABS: BASO # 0.0 10^3/uL (0.0-0.2); BASO % 0.3 % (0.0-1.0); EOS # 0.1 10^3/uL (0.0-0.5); EOS % 0.8 % (0.0-3.0); LYMPH # 2.2 10^3/uL (1.5-5.0); LYMPH % 20.6 % (24.0-44.0); MONO # 1.1 10^3/uL (0.0-0.8); MONO % 10.2 % (2.0-8.0); NEUTROPHILS # 7.3 10^3/uL (1.5-8.5); NEUTROPHILS % 67.7 % (36.0-66.0); PLATELET COUNT, AUTOMATED 447 10^3/uL (150-450)
[2024-11-20 15:39] LABS: IRON (FE) 40 UG/DL (50-170); PERCENT SATURATION 15.6 % (13.2-45.0)
[2024-11-20 15:43] LABS: ALT/SGPT 62 U/L (7.0-40); AST/SGOT 104 U/L (<34); CALCIUM LEVEL 9.7 MG/DL (8.5-10.1); CARBON DIOXIDE LEVEL 30 MMOL/L (20-31); CHLORIDE LEVEL 103 MMOL/L (98-107); CREATININE FOR GFR 0.93 MG/DL (0.55-1.30); GLOMERULAR FILTRATION RATE 73.0 (>51); POTASSIUM SERUM 4.0 MMOL/L (3.5-5.1); SODIUM LEVEL 144 MMOL/L (136-145)
== END ==
LOC: M LAB 14:10
PROVIDERS: ATTEND Student in an Organized Health Care Education/Training Program
DX: D64.9 Anemia, unspecified (principal); E87.0 Hyperosmolality and hypernatremia

== ENCOUNTER 2025-01-09 10:27 | Emergency (ER) | payer MEDICARE, MEDICAID ==
[2025-01-09 11:49] LABS: PLATELET COUNT, AUTOMATED 297 10^3/uL (150-450)
[2025-01-09 12:24] LABS: CALCIUM LEVEL 9.5 MG/DL (8.5-10.1); CARBON DIOXIDE LEVEL 22.0 MMOL/L (20-31); CHLORIDE LEVEL 103.0 MMOL/L (98-107); CREATININE FOR GFR 1.1 MG/DL (0.55-1.30); GLOMERULAR FILTRATION RATE 59.7 (>51); POTASSIUM SERUM 3.7 MMOL/L (3.5-5.1); SODIUM LEVEL 138.0 MMOL/L (136-145)
[2025-01-09] MEDS: NS (Normal Saline) 0.9% 1,000 ML IV ONE (13:11)
[2025-01-09] MEDS ORDERED: CALCIUM CHLORIDE 10% 1 GM in D5W 100 ML IV ONE ×2 (14:20→16:00)
[2025-01-09 16:35] VITALS: BP 109/68; TEMP 96; O2SAT 100
== END 2025-01-09 16:58 | disposition home or self-care (01) ==
LOC: M ED 10:27
DX: I95.89 Other hypotension (principal); E86.0 Dehydration; K21.9 Gastro-esophageal reflux disease without esophagitis; E28.2 Polycystic ovarian syndrome; Z79.1 Long term (current) use of non-steroidal anti-inflammatories (NSAID); Z79.899 Other long term (current) drug therapy

== ENCOUNTER 2025-01-20 09:04 | Inpatient (IN) | payer MEDICARE, MEDICAID ==
[~2025-01-20] VITALS: Ht 167.6 cm; Wt 62.8 kg
[2025-01-20 09:59] LABS: BASO # 0.0 10^3/uL (0.0-0.2); BASO % 0.2 % (0.0-1.0); EOS # 0.1 10^3/uL (0.0-0.5); EOS % 1.4 % (0.0-3.0); LYMPH # 1.2 10^3/uL (1.5-5.0); LYMPH % 21.6 % (24.0-44.0); MONO # 0.4 10^3/uL (0.0-0.8); MONO % 7.3 % (2.0-8.0); NEUTROPHILS # 3.9 10^3/uL (1.5-8.5); NEUTROPHILS % 69.3 % (36.0-66.0); PLATELET COUNT, AUTOMATED 271 10^3/uL (150-450)
[2025-01-20 10:32] LABS: ALT/SGPT 84 U/L (7.0-40); AST/SGOT 76 U/L (<34); CALCIUM LEVEL 9.0 MG/DL (8.5-10.1); CARBON DIOXIDE LEVEL 20 MMOL/L (20-31); CHLORIDE LEVEL 99 MMOL/L (98-107); CREATININE FOR GFR 0.94 MG/DL (0.55-1.30); GLOMERULAR FILTRATION RATE 72.1 (>51); POTASSIUM SERUM 4.0 MMOL/L (3.5-5.1); SODIUM LEVEL 128 MMOL/L (136-145)
[2025-01-20] MEDS: NS (Normal Saline) 0.9% 1,000 ML IV ONE (10:47)
[2025-01-20] MEDS: HYDROCORTISONE 100 MG/2 ML VIAL IV ONE (12:51)
[2025-01-20 12:54] LABS: KETONE, URINE AUTO RFX NEGATIVE (NEGATIVE); NITRITE, URINE AUTO RFX NEGATIVE (NEGATIVE); RBC, URINE AUTO RFX 0 /HPF (0-3); SQUAM EPITHELIAL CELL UR AURFX 0 /HPF (0-6); WBC, URINE AUTO RFX 1 /HPF (0-3)
[2025-01-20 12:57] LABS: LEUKOCYTE ESTERASE UR AUTO RFX TRACE (NEGATIVE)
[2025-01-20] MEDS ORDERED: NEXI40GR PO (14:24)
[2025-01-20] MEDS ORDERED: SUCR1ORA JT (14:24)
[2025-01-20] MEDS ORDERED: MIDO10TA3 PO (14:24)
[2025-01-20] MEDS ORDERED: HOME MED LIST COMPLETE! XX SCH (14:25)
[2025-01-20] MEDS: MIDODRINE 5 MG TAB PO SCH (15:39)
[2025-01-20] MEDS: SUCRALFATE SUSP 1GM/10ML UD JT SCH (16:55)
[2025-01-20] MEDS: RISPERIDONE 1 MG TAB JT SCH (23:14)
[2025-01-20] MEDS: SIMETHICONE 40MG/0.6ML DROPS 30ML JT SCH (23:14)
[2025-01-20] MEDS: TOPIRAMATE 25 MG TAB JT SCH (23:14)
[2025-01-21] MEDS: LEVOTHYROXINE 25 MCG TABLET (0.025MG) PO SCH (05:44)
[2025-01-21] MEDS: OMEPRAZOLE/SODIUM BICARB 20-840MG 10ML ORAL SYRINGE GT SCH (08:31)
[2025-01-21] MEDS: LORazepam 0.5 MG TAB JT SCH (08:31)
[2025-01-21] MEDS: FLUDROCORTISONE ACETATE 0.1 MG TAB JT SCH (08:45)
[2025-01-21 12:30] VITALS: BP 76/50; TEMP 93.2; O2SAT 98
[2025-01-21 13:42] LABS: PLATELET COUNT, AUTOMATED 279 10^3/uL (150-450)
[2025-01-21 13:54] VITALS: BP 80/58
[2025-01-21 14:13] LABS: ALT/SGPT 70 U/L (7.0-40); AST/SGOT 54 U/L (<34); CALCIUM LEVEL 9.0 MG/DL (8.5-10.1); CARBON DIOXIDE LEVEL 22 MMOL/L (20-31); CHLORIDE LEVEL 109 MMOL/L (98-107); CREATININE FOR GFR 1.00 MG/DL (0.55-1.30); GLOMERULAR FILTRATION RATE 67.0 (>51); MAGNESIUM LEVEL 2.0 MG/DL (1.8-2.4); POTASSIUM SERUM 3.6 MMOL/L (3.5-5.1); SODIUM LEVEL 137 MMOL/L (136-145)
[2025-01-21] MEDS: NS 500 ML IV ONE (15:16)
[2025-01-21 16:25] VITALS: BP 86/54; TEMP 92.1
[2025-01-21] MEDS: ONDANSETRON 4MG 2ML VIAL IV PRN (16:27)
[2025-01-21] MEDS ORDERED: ISOVUE-370 76% 100 ML VIAL As Ordered ONE (17:21)
[2025-01-21 18:01] VITALS: BP 87/51
[2025-01-21 21:15] VITALS: BP 96/54; TEMP 96.2; O2SAT 100
[2025-01-21 23:10] VITALS: BP 86/52; TEMP 98.1; O2SAT 98
[2025-01-21] MEDS ORDERED: D5W/0.45% SODIUM CHLORIDE 1,000 ML IV SCH (23:15)
[2025-01-22] VITALS (8 sets, daily range): BP systolic 82–113; BP diastolic 48–82; TEMP 97.5–99.5; O2SAT 98–100
[2025-01-22] MEDS: DEXTROSE 50% 50 ML SYRINGE IV STA (00:09)
[2025-01-22] MEDS: NS 500 ML IV ONE (00:40)
[2025-01-22 05:52] LABS: BASO # 0.0 10^3/uL (0.0-0.2); BASO % 0.1 % (0.0-1.0); EOS # 0.0 10^3/uL (0.0-0.5); EOS % 0.1 % (0.0-3.0); LYMPH # 1.9 10^3/uL (1.5-5.0); LYMPH % 20.1 % (24.0-44.0); MONO # 0.9 10^3/uL (0.0-0.8); MONO % 9.8 % (2.0-8.0); NEUTROPHILS # 6.5 10^3/uL (1.5-8.5); NEUTROPHILS % 69.7 % (36.0-66.0); PLATELET COUNT, AUTOMATED 272 10^3/uL (150-450)
[2025-01-22 06:22] LABS: CALCIUM LEVEL 8.8 MG/DL (8.5-10.1); CARBON DIOXIDE LEVEL 21.0 MMOL/L (20-31); CHLORIDE LEVEL 112.0 MMOL/L (98-107); CREATININE FOR GFR 1.16 MG/DL (0.55-1.30); GLOMERULAR FILTRATION RATE 56.0 (>51); POTASSIUM SERUM 4.2 MMOL/L (3.5-5.1); SODIUM LEVEL 143.0 MMOL/L (136-145)
[2025-01-23] VITALS (23 sets, daily range): BP systolic 75–98; BP diastolic 49–55; TEMP 96.2–99.3; O2SAT 98–100
[2025-01-23 05:46] LABS: BASO # 0.0 10^3/uL (0.0-0.2); BASO % 0.2 % (0.0-1.0); EOS # 0.0 10^3/uL (0.0-0.5); EOS % 0.2 % (0.0-3.0); LYMPH # 2.0 10^3/uL (1.5-5.0); LYMPH % 21.0 % (24.0-44.0); MONO # 1.6 10^3/uL (0.0-0.8); MONO % 16.4 % (2.0-8.0); NEUTROPHILS # 5.9 10^3/uL (1.5-8.5); NEUTROPHILS % 62.0 % (36.0-66.0); PLATELET COUNT, AUTOMATED 280 10^3/uL (150-450)
[2025-01-23 06:10] LABS: CALCIUM LEVEL 8.9 MG/DL (8.5-10.1); CARBON DIOXIDE LEVEL 22 MMOL/L (20-31); CHLORIDE LEVEL 115 MMOL/L (98-107); CREATININE FOR GFR 1.32 MG/DL (0.55-1.30); GLOMERULAR FILTRATION RATE 48.0 (>51); POTASSIUM SERUM 4.2 MMOL/L (3.5-5.1); SODIUM LEVEL 144 MMOL/L (136-145)
[2025-01-23] MEDS: NS (Normal Saline) 0.9% 1,000 ML IV ONE (08:06)
[2025-01-23] MEDS ORDERED: GLUCAGON INJ 1 MG VIAL SC PRN (10:35)
[2025-01-23] MEDS ORDERED: GLUCOSE 4 GM CHEW PO PRN (10:35)
[2025-01-23 13:47] LABS: TOPIRAMATE LEVEL 5.7 mcg/mL (see note)
[2025-01-23 13:52] LABS: ALT/SGPT 63 U/L (7.0-40); AST/SGOT 51 U/L (<34)
[2025-01-24] VITALS (17 sets, daily range): BP systolic 73–85; BP diastolic 48–61; TEMP 97.1–97.5; O2SAT 98–100
[2025-01-24 06:41] LABS: BASO # 0.0 10^3/uL (0.0-0.2); BASO % 0.3 % (0.0-1.0); EOS # 0.1 10^3/uL (0.0-0.5); EOS % 1.5 % (0.0-3.0); LYMPH # 2.5 10^3/uL (1.5-5.0); LYMPH % 36.2 % (24.0-44.0); MONO # 0.7 10^3/uL (0.0-0.8); MONO % 10.3 % (2.0-8.0); NEUTROPHILS # 3.5 10^3/uL (1.5-8.5); NEUTROPHILS % 51.4 % (36.0-66.0); PLATELET COUNT, AUTOMATED 261 10^3/uL (150-450)
[2025-01-24 07:06] LABS: ALT/SGPT 63 U/L (7.0-40); AST/SGOT 48 U/L (<34); CALCIUM LEVEL 8.9 MG/DL (8.5-10.1); CARBON DIOXIDE LEVEL 25 MMOL/L (20-31); CHLORIDE LEVEL 112 MMOL/L (98-107); CREATININE FOR GFR 1.08 MG/DL (0.55-1.30); GLOMERULAR FILTRATION RATE 61.0 (>51); POTASSIUM SERUM 4.6 MMOL/L (3.5-5.1); SODIUM LEVEL 145 MMOL/L (136-145)
[2025-01-24] MEDS: LOPERAMIDE 2 MG CAPLET GT SCH (09:41)
[2025-01-24] MEDS: cefTRIAXone SOD 1 GM in DEXTROSE 5% (D5W) ADV/MINI-BAG 50 ML IV SCH (11:22)
[2025-01-24] MEDS: HYDROCORTISONE 100 MG/2 ML VIAL IV SCH (11:22)
[2025-01-25] VITALS (9 sets, daily range): BP systolic 76–102; BP diastolic 47–66; TEMP 96.8–97.4; O2SAT 97–100
[2025-01-25 06:25] LABS: BASO # 0.0 10^3/uL (0.0-0.2); BASO % 0.1 % (0.0-1.0); EOS # 0.0 10^3/uL (0.0-0.5); EOS % 0.3 % (0.0-3.0); LYMPH # 1.5 10^3/uL (1.5-5.0); LYMPH % 21.0 % (24.0-44.0); MONO # 0.5 10^3/uL (0.0-0.8); MONO % 7.2 % (2.0-8.0); NEUTROPHILS # 5.2 10^3/uL (1.5-8.5); NEUTROPHILS % 71.3 % (36.0-66.0); PLATELET COUNT, AUTOMATED 239 10^3/uL (150-450)
[2025-01-25 06:48] LABS: CALCIUM LEVEL 9.0 MG/DL (8.5-10.1); CARBON DIOXIDE LEVEL 30.0 MMOL/L (20-31); CHLORIDE LEVEL 110.0 MMOL/L (98-107); CREATININE FOR GFR 0.95 MG/DL (0.55-1.30); GLOMERULAR FILTRATION RATE 71.2 (>51); POTASSIUM SERUM 4.8 MMOL/L (3.5-5.1); SODIUM LEVEL 147.0 MMOL/L (136-145)
[2025-01-25] MEDS: SODIUM CHLORIDE 0.45% 1000 ML IV ONE (12:47)
[2025-01-25] MEDS: LACTATED RINGER'S 1000 ML IV ONE (20:14)
[2025-01-26 04:00] VITALS: BP 102/56; TEMP 96.8; O2SAT 100
[2025-01-26 04:59] LABS: BASO # 0.0 10^3/uL (0.0-0.2); BASO % 0.1 % (0.0-1.0); EOS # 0.0 10^3/uL (0.0-0.5); EOS % 0.3 % (0.0-3.0); LYMPH # 1.6 10^3/uL (1.5-5.0); LYMPH % 21.7 % (24.0-44.0); MONO # 0.6 10^3/uL (0.0-0.8); MONO % 8.0 % (2.0-8.0); NEUTROPHILS # 5.2 10^3/uL (1.5-8.5); NEUTROPHILS % 69.8 % (36.0-66.0); PLATELET COUNT, AUTOMATED 251 10^3/uL (150-450)
[2025-01-26 05:36] LABS: CALCIUM LEVEL 8.7 MG/DL (8.5-10.1); CARBON DIOXIDE LEVEL 29.0 MMOL/L (20-31); CHLORIDE LEVEL 108.0 MMOL/L (98-107); CREATININE FOR GFR 0.81 MG/DL (0.55-1.30); GLOMERULAR FILTRATION RATE 86.2 (>51); POTASSIUM SERUM 4.5 MMOL/L (3.5-5.1); SODIUM LEVEL 145.0 MMOL/L (136-145)
[2025-01-26 07:54] VITALS: BP 82/52; TEMP 97; O2SAT 100
[2025-01-26 11:17] VITALS: BP 90/50; O2SAT 100
[2025-01-26 16:00] VITALS: BP 94/59; TEMP 97; O2SAT 100
[2025-01-26] MEDS: HYDROCORTISONE 100 MG/2 ML VIAL IV SCH (16:08)
[2025-01-26 19:54] VITALS: BP 96/64; TEMP 96.8; O2SAT 100
[2025-01-27] VITALS (7 sets, daily range): BP systolic 77–104; BP diastolic 51–68; TEMP 97–98.3; O2SAT 97–99
[2025-01-27 06:05] LABS: BASO # 0.0 10^3/uL (0.0-0.2); BASO % 0.2 % (0.0-1.0); EOS # 0.0 10^3/uL (0.0-0.5); EOS % 0.5 % (0.0-3.0); LYMPH # 1.8 10^3/uL (1.5-5.0); LYMPH % 27.4 % (24.0-44.0); MONO # 0.3 10^3/uL (0.0-0.8); MONO % 4.0 % (2.0-8.0); NEUTROPHILS # 4.4 10^3/uL (1.5-8.5); NEUTROPHILS % 67.4 % (36.0-66.0); PLATELET COUNT, AUTOMATED 302 10^3/uL (150-450)
[2025-01-27 06:30] LABS: CALCIUM LEVEL 8.9 MG/DL (8.5-10.1); CARBON DIOXIDE LEVEL 31.0 MMOL/L (20-31); CHLORIDE LEVEL 105.0 MMOL/L (98-107); CREATININE FOR GFR 0.82 MG/DL (0.55-1.30); GLOMERULAR FILTRATION RATE 85.0 (>51); POTASSIUM SERUM 4.8 MMOL/L (3.5-5.1); SODIUM LEVEL 144.0 MMOL/L (136-145)
[2025-01-27] MEDS: NS 500 ML IV ONE (11:40)
[2025-01-28] VITALS (7 sets, daily range): BP systolic 86–103; BP diastolic 51–66; TEMP 97.1–98.4; O2SAT 98–100
[2025-01-28 05:34] LABS: BASO # 0.0 10^3/uL (0.0-0.2); BASO % 0.2 % (0.0-1.0); EOS # 0.0 10^3/uL (0.0-0.5); EOS % 0.3 % (0.0-3.0); LYMPH # 2.7 10^3/uL (1.5-5.0); LYMPH % 31.8 % (24.0-44.0); MONO # 0.7 10^3/uL (0.0-0.8); MONO % 7.9 % (2.0-8.0); NEUTROPHILS # 5.1 10^3/uL (1.5-8.5); NEUTROPHILS % 59.2 % (36.0-66.0); PLATELET COUNT, AUTOMATED 279 10^3/uL (150-450)
[2025-01-28 05:57] LABS: CALCIUM LEVEL 8.7 MG/DL (8.5-10.1); CARBON DIOXIDE LEVEL 32.0 MMOL/L (20-31); CHLORIDE LEVEL 105.0 MMOL/L (98-107); CREATININE FOR GFR 0.87 MG/DL (0.55-1.30); GLOMERULAR FILTRATION RATE 79.1 (>51); POTASSIUM SERUM 4.9 MMOL/L (3.5-5.1); SODIUM LEVEL 144.0 MMOL/L (136-145)
[2025-01-28] MEDS: DIPHENOXYLATE HCL/ATROPINE 2.5 MG/0.025 MG TABLET JT SCH (12:00)
[2025-01-28] MEDS: NS 0.45% 1,000 ML IV ONE (14:44)
[2025-01-29] VITALS (7 sets, daily range): BP systolic 90–128; BP diastolic 53–70; TEMP 96.9–98.3; O2SAT 98–100
[2025-01-29] MEDS: DEXTROSE 50% 50 ML SYRINGE IV PRN (00:50)
[2025-01-29] MEDS: LOPERAMIDE 2 MG CAPLET JT SCH (11:43)
[2025-01-29] MEDS: DIPHENOXYLATE HCL/ATROPINE 2.5 MG/0.025 MG TABLET PO SCH (11:43)
[2025-01-29] MEDS: NS 0.45% 1,000 ML IV ONE ×2 (11:44→13:40)
[2025-01-29 11:50] LABS: BASO # 0.0 10^3/uL (0.0-0.2); BASO % 0.2 % (0.0-1.0); EOS # 0.0 10^3/uL (0.0-0.5); EOS % 0.2 % (0.0-3.0); LYMPH # 2.9 10^3/uL (1.5-5.0); LYMPH % 32.0 % (24.0-44.0); MONO # 0.7 10^3/uL (0.0-0.8); MONO % 7.7 % (2.0-8.0); NEUTROPHILS # 5.3 10^3/uL (1.5-8.5); NEUTROPHILS % 59.6 % (36.0-66.0); PLATELET COUNT, AUTOMATED 326 10^3/uL (150-450)
[2025-01-29] MEDS: CHOLESTYRAMINE 4 GM PWD PKT PO ONE (13:40)
[2025-01-29] MEDS: MIDODRINE 5 MG TAB GT SCH (17:09)
[2025-01-29] MEDS: DIPHENOXYLATE HCL/ATROPINE 2.5 MG/0.025 MG TABLET GT SCH (17:16)
[2025-01-30 03:39] VITALS: BP 103/60; TEMP 97.1; O2SAT 99
[2025-01-30 07:08] VITALS: BP 113/65; TEMP 97; O2SAT 98
[2025-01-30 11:37] VITALS: BP 99/56; TEMP 97.6; O2SAT 98
[2025-01-30] MEDS: NS 0.45% 1,000 ML IV ONE (13:04)
[2025-01-30 13:11] VITALS: BP 111/54
[2025-01-30 15:41] VITALS: BP 100/56; TEMP 98; O2SAT 98
[2025-01-30] MEDS: ACETAMINOPHEN 325 MG TAB JT PRN (18:41)
[2025-01-30 19:29] VITALS: BP 102/65; TEMP 97.9; O2SAT 97
[2025-01-30 23:43] LABS: PLATELET COUNT, AUTOMATED 322 10^3/uL (150-450)
[2025-01-31] VITALS: BP 103/55; TEMP 97.9; O2SAT 100
[2025-01-31 00:20] LABS: ALT/SGPT 53 U/L (7.0-40); AST/SGOT 32 U/L (<34); CALCIUM LEVEL 8.5 MG/DL (8.5-10.1); CARBON DIOXIDE LEVEL 29 MMOL/L (20-31); CHLORIDE LEVEL 107 MMOL/L (98-107); CREATININE FOR GFR 0.74 MG/DL (0.55-1.30); GLOMERULAR FILTRATION RATE > 90.0 (>51); MAGNESIUM LEVEL 1.6 MG/DL (1.8-2.4); POTASSIUM SERUM 4.9 MMOL/L (3.5-5.1); SODIUM LEVEL 139 MMOL/L (136-145)
[2025-01-31] MEDS: D5W/0.45% SODIUM CHLORIDE 500 ML IV SCH (02:48)
[2025-01-31] MEDS: MAG SULF 1GM/100ML (MAG RUN) 1 GM in IV 1 EA IV SCH (02:48)
[2025-01-31 03:26] VITALS: BP 96/53; TEMP 97.4; O2SAT 96
[2025-01-31 07:52] VITALS: BP 98/60; TEMP 97.5; O2SAT 97
[2025-01-31 08:24] LABS: CALCIUM LEVEL 8.8 MG/DL (8.5-10.1); CARBON DIOXIDE LEVEL 30.0 MMOL/L (20-31); CHLORIDE LEVEL 104.0 MMOL/L (98-107); CREATININE FOR GFR 0.79 MG/DL (0.55-1.30); GLOMERULAR FILTRATION RATE 88.8 (>51); MAGNESIUM LEVEL 2.1 MG/DL (1.8-2.4); PHOSPHORUS LEVEL 3.5 MG/DL (2.5-4.9); POTASSIUM SERUM 4.5 MMOL/L (3.5-5.1); SODIUM LEVEL 140.0 MMOL/L (136-145)
[2025-01-31] MEDS: DIPHENOXYLATE HCL/ATROPINE 2.5 MG/0.025 MG TABLET JT SCH (08:31)
[2025-01-31] MEDS: NS (Normal Saline) 0.9% 1,000 ML IV ONE (08:31)
[2025-01-31 10:40] VITALS: BP 95/52
[2025-01-31 11:26] LABS: BASO # 0.0 10^3/uL (0.0-0.2); BASO % 0.1 % (0.0-1.0); EOS # 0.0 10^3/uL (0.0-0.5); EOS % 0.3 % (0.0-3.0); LYMPH # 1.7 10^3/uL (1.5-5.0); LYMPH % 21.6 % (24.0-44.0); MONO # 0.4 10^3/uL (0.0-0.8); MONO % 5.0 % (2.0-8.0); NEUTROPHILS # 5.6 10^3/uL (1.5-8.5); NEUTROPHILS % 72.6 % (36.0-66.0); PLATELET COUNT, AUTOMATED 377 10^3/uL (150-450)
[2025-01-31 12:00] VITALS: BP 92/49
[2025-01-31 12:10] LABS: CALCIUM LEVEL 8.2 MG/DL (8.5-10.1); CARBON DIOXIDE LEVEL 28 MMOL/L (20-31); CHLORIDE LEVEL 106 MMOL/L (98-107); CREATININE FOR GFR 0.78 MG/DL (0.55-1.30); GLOMERULAR FILTRATION RATE > 90.0 (>51); POTASSIUM SERUM 4.4 MMOL/L (3.5-5.1); SODIUM LEVEL 139 MMOL/L (136-145)
[2025-01-31] MEDS: HYDROCORTISONE 10 MG TAB GT SCH (14:55)
[2025-01-31 19:34] VITALS: BP 107/71; TEMP 97; O2SAT 100
[2025-02-01 00:08] VITALS: BP 117/68; TEMP 97.2; O2SAT 98
[2025-02-01 03:29] VITALS: BP 111/61; TEMP 97.1; O2SAT 100
[2025-02-01 07:22] VITALS: BP 104/56; TEMP 97.1; O2SAT 98
[2025-02-01] MEDS: HYDROCORTISONE 10 MG TAB GT SCH (14:30)
[2025-02-01 15:54] VITALS: BP 124/71; TEMP 97; O2SAT 98
[2025-02-01 16:55] VITALS: BP 96/55
[2025-02-01 19:21] VITALS: BP 113/61; TEMP 97.1; O2SAT 100
[2025-02-02 03:30] VITALS: BP 113/56; TEMP 97; O2SAT 99
[2025-02-02 08:01] VITALS: BP 116/61; TEMP 97; O2SAT 96
[2025-02-02] MEDS ORDERED: HYDROCORTISONE 10 MG TAB PO SCH (09:00)
[2025-02-02] MEDS ORDERED: HYDROCORTISONE 10 MG TAB GT SCH (09:00)
[2025-02-02 15:55] VITALS: BP 123/75; TEMP 96.9; O2SAT 95
[2025-02-02] MEDS: HYDROCORTISONE 10 MG TAB GT SCH (17:39)
[2025-02-02 19:26] VITALS: BP 101/59; TEMP 97.8; O2SAT 94
[2025-02-03] VITALS (12 sets, daily range): BP systolic 97–134; BP diastolic 51–75; TEMP 96.2–97.5; O2SAT 94–100
[2025-02-03 09:16] LABS: BASO # 0.0 10^3/uL (0.0-0.2); BASO % 0.4 % (0.0-1.0); EOS # 0.1 10^3/uL (0.0-0.5); EOS % 0.6 % (0.0-3.0); LYMPH # 2.4 10^3/uL (1.5-5.0); LYMPH % 30.2 % (24.0-44.0); MONO # 1.0 10^3/uL (0.0-0.8); MONO % 13.0 % (2.0-8.0); NEUTROPHILS # 4.4 10^3/uL (1.5-8.5); NEUTROPHILS % 55.3 % (36.0-66.0); PLATELET COUNT, AUTOMATED 340 10^3/uL (150-450)
[2025-02-03 09:42] LABS: CALCIUM LEVEL 9.1 MG/DL (8.5-10.1); CARBON DIOXIDE LEVEL 30 MMOL/L (20-31); CHLORIDE LEVEL 105 MMOL/L (98-107); CREATININE FOR GFR 0.75 MG/DL (0.55-1.30); GLOMERULAR FILTRATION RATE > 90.0 (>51); POTASSIUM SERUM 4.2 MMOL/L (3.5-5.1); SODIUM LEVEL 143 MMOL/L (136-145)
[2025-02-03 14:17] LABS: IRON (FE) 53.0 UG/DL (50-170); PERCENT SATURATION 19.5 % (13.2-45.0)
[2025-02-03 14:20] LABS: VITAMIN B12 LEVEL 712.0 PG/ML (211-911)
[2025-02-03] MEDS: LOPERAMIDE 2 MG CAPLET GT SCH (14:39)
[2025-02-03] MEDS ORDERED: HYDROCORTISONE 10 MG TAB GT SCH (18:00)
[2025-02-03] MEDS: HYDROCORTISONE 10 MG TAB GT SCH (20:15)
[2025-02-04 00:15] VITALS: BP 97/61; TEMP 97.6; O2SAT 100
[2025-02-04 04:23] VITALS: BP 96/60; TEMP 98.2; O2SAT 100
[2025-02-04 07:07] LABS: BASO # 0.0 10^3/uL (0.0-0.2); BASO % 0.4 % (0.0-1.0); EOS # 0.1 10^3/uL (0.0-0.5); EOS % 1.0 % (0.0-3.0); LYMPH # 2.3 10^3/uL (1.5-5.0); LYMPH % 33.5 % (24.0-44.0); MONO # 0.5 10^3/uL (0.0-0.8); MONO % 7.2 % (2.0-8.0); NEUTROPHILS # 4.0 10^3/uL (1.5-8.5); NEUTROPHILS % 57.5 % (36.0-66.0); PLATELET COUNT, AUTOMATED 311 10^3/uL (150-450)
[2025-02-04 07:24] LABS: CALCIUM LEVEL 9.0 MG/DL (8.5-10.1); CARBON DIOXIDE LEVEL 29 MMOL/L (20-31); CHLORIDE LEVEL 105 MMOL/L (98-107); CREATININE FOR GFR 0.76 MG/DL (0.55-1.30); GLOMERULAR FILTRATION RATE > 90.0 (>51); MAGNESIUM LEVEL 1.6 MG/DL (1.8-2.4); POTASSIUM SERUM 4.5 MMOL/L (3.5-5.1); SODIUM LEVEL 142 MMOL/L (136-145)
[2025-02-04 07:37] VITALS: BP 104/59; TEMP 98; O2SAT 99
[2025-02-04] MEDS: MAG SULF 1GM/100ML (MAG RUN) 1 GM in IV 1 EA IV SCH (11:05)
[2025-02-04 12:18] VITALS: BP 96/53; TEMP 98.1; O2SAT 99
[2025-02-04] MEDS: METAMUCIL PACKET GT SCH (14:35)
[2025-02-04 16:26] VITALS: BP 97/65; TEMP 98.2; O2SAT 98
[2025-02-04 19:31] VITALS: BP 131/63; TEMP 97.2; O2SAT 100
[2025-02-05 00:10] VITALS: BP 132/84; TEMP 96.8; O2SAT 98
[2025-02-05 03:30] VITALS: BP 142/77; TEMP 97; O2SAT 100
[2025-02-05 06:05] VITALS: BP 106/67; TEMP 97; O2SAT 99
[2025-02-05 08:09] VITALS: BP 103/61; TEMP 97.1; O2SAT 98
[2025-02-05] MEDS ORDERED: META28PO GT (09:31)
[2025-02-05] MEDS ORDERED: LOPE1CAP5 GT (09:31)
[2025-02-05] MEDS: HYDROCORTISONE 10 MG TAB GT ONE (10:30)
[2025-02-05 12:15] VITALS: BP 124/59; TEMP 97.5; O2SAT 98
[2025-02-05 12:40] VITALS: BP 124/59
[2025-02-06] MEDS ORDERED: HYDROCORTISONE 10 MG TAB GT SCH (09:00)
== END 2025-02-05 13:22 | disposition home or self-care (01) | DRG 644 ==
LOC: M ED 09:04 → EDBD 09:04 → M ED INP 09:05 → M PCU 01-21 21:08 → OBSVTOIN 01-22 19:21
PROVIDERS: ADMIT Internal Medicine Nephrology; ATTEND Internal Medicine Nephrology
PROC: 30233N1 Transfusion of Nonautologous Red Blood Cells into Peripheral Vein, Percutaneous Approach (ICD-10-PCS; principal; 2025-02-03)
DX: E27.40 Unspecified adrenocortical insufficiency (principal); N39.0 Urinary tract infection, site not specified; E87.1 Hypo-osmolality and hyponatremia; F72 Severe intellectual disabilities; A08.11 Acute gastroenteropathy due to Norwalk agent; N17.9 Acute kidney failure, unspecified; E87.0 Hyperosmolality and hypernatremia; B96.20 Unspecified Escherichia coli [E. coli] as the cause of diseases classified elsewhere; E86.0 Dehydration; R13.12 Dysphagia, oropharyngeal phase; I95.89 Other hypotension; F63.81 Intermittent explosive disorder; K21.9 Gastro-esophageal reflux disease without esophagitis; K31.84 Gastroparesis; E03.9 Hypothyroidism, unspecified; D64.9 Anemia, unspecified; E78.5 Hyperlipidemia, unspecified; M17.0 Bilateral primary osteoarthritis of knee; R68.0 Hypothermia, not associated with low environmental temperature; E28.2 Polycystic ovarian syndrome; Z93.2 Ileostomy status; Z79.899 Other long term (current) drug therapy

== ENCOUNTER → 2025-02-27 | Outpatient (REF) | payer MEDICARE, MEDICAID ==
[~2025-02-27] MED LIST changes: +LOPE1CAP5 GT; +META28PO GT; +MIDO10TA3 PO; -ROSU10TA61 PO; +ROSU10TA90 PO; +SUCR1ORA JT
== END ==
LOC: M SFHCPLAZ 10:30
PROVIDERS: ATTEND Family Medicine
DX: Z53.9 Procedure and treatment not carried out, unspecified reason (principal)

== ENCOUNTER → 2025-02-28 | Outpatient (CLI) | payer MEDICARE, MEDICAID ==
[2025-02-28 11:41] LABS: PLATELET COUNT, AUTOMATED 170 10^3/uL (150-450)
[2025-02-28 11:52] LABS: ESTIMATED AVERAGE GLUCOSE 100.0 MG/DL (60-110)
[2025-02-28 12:07] LABS: ALT/SGPT 119 U/L (7.0-40); AST/SGOT 85 U/L (<34); CALCIUM LEVEL 9.4 MG/DL (8.5-10.1); CARBON DIOXIDE LEVEL 23 MMOL/L (20-31); CHLORIDE LEVEL 110 MMOL/L (98-107); CHOLESTEROL LEVEL 230 MG/DL (<200); CHOLESTEROL RISK RATIO 3.20 (<5); CREATININE FOR GFR 0.81 MG/DL (0.55-1.30); GLOMERULAR FILTRATION RATE 86.2 (>51); LDL CHOLESTEROL 141.7 MG/DL (<100); MAGNESIUM LEVEL 1.7 MG/DL (1.8-2.4); NON-HDL-C 158.3 MG/DL; POTASSIUM SERUM 4.3 MMOL/L (3.5-5.1); SODIUM LEVEL 143 MMOL/L (136-145); TRIGLYCERIDES LEVEL 83 MG/DL (<150)
[2025-02-28 12:09] LABS: VITAMIN B12 LEVEL 1745 PG/ML (211-911)
== END ==
LOC: M LAB 10:42
PROVIDERS: ATTEND Family Medicine
DX: Z93.1 Gastrostomy status (principal); E44.1 Mild protein-calorie malnutrition

== ENCOUNTER → 2025-03-20 | Outpatient (REF) | payer MEDICARE, MEDICAID | LOC: M SFHCPLAZ 10:32 | PROVIDERS: ATTEND Family Medicine | DX: Z12.11 Encounter for screening for malignant neoplasm of colon (principal); Z53.9 Procedure and treatment not carried out, unspecified reason ==

== ENCOUNTER 2025-04-24 18:36 | Emergency (ER) | payer MEDICARE, MEDICAID ==
[~2025-04-24] VITALS: Ht 157.5 cm; Wt 61.4 kg
[~2025-04-24 18:36] MED LIST changes: -LEVO100S5 JT; +LEVO25TA5 JT; -LEVO25TA5 PO; +MIDO10TA3 JT; -MIDO10TA3 PO; +NEXI40GR JT; +[UNRECOGNIZED DRUG - CODE] JT
[2025-04-24 21:55] LABS: KETONE, URINE MANUAL REFLEX NEGATIVE (NEGATIVE); PROTEIN, URINE MANUAL REFLEX TRACE mg/dL (NEGATIVE); SP GRAVITY,URINE MANUAL REFLEX 1.015 (1.002-1.035)
[2025-04-24 21:56] LABS: NITRITE, URINE MANUAL RFX NEGATIVE (NEGATIVE); UROBILINOGEN, UA MANUAL REFLEX NORMAL (NORMAL)
[2025-04-24 22:06] LABS: BASO # 0.0 10^3/uL (0.0-0.2); BASO % 0.2 % (0.0-1.0); EOS # 0.1 10^3/uL (0.0-0.5); EOS % 0.4 % (0.0-3.0); LYMPH # 1.8 10^3/uL (1.5-5.0); LYMPH % 14.7 % (24.0-44.0); MONO # 0.7 10^3/uL (0.0-0.8); MONO % 5.5 % (2.0-8.0); NEUTROPHILS # 9.7 10^3/uL (1.5-8.5); NEUTROPHILS % 78.9 % (36.0-66.0); PLATELET COUNT, AUTOMATED 550 10^3/uL (150-450)
[2025-04-24 22:12] LABS: HYALINE CAST, URINE RFX NONE SEEN /lpf (0-1); MICROSCOPIC EXAM RFX PERFORMED; MUCUS, URINE REFLEX SMALL AMOUNT (NEGATIVE); RENAL EPITHELIAL, URINE RFX 0 /hpf; SPERM, URINE RFX 0; SQUAMOUS EPITHELIAL URINE RFX MOD AMOUNT /hpf (SMALL AMT); TRANSITIONAL EPI, URINE RFX SMALL AMOUNT /hpf; TRICHOMONAS, URINE RFX 0; TRIPLE PHOS CRYSTAL,URINE RFX 0 /hpf; URIC ACID CRYSTALS, URINE RFX 0 /hpf; WAXY CAST, URINE RFX 0-1 /lpf; WBC CELL CAST, URINE RFX 0-1 /lpf; YEAST, URINE RFX 0
[2025-04-24 22:13] LABS: CK-MB VALUE MASS 33.2 NG/ML (<3.6)
[2025-04-24 22:15] LABS: ALT/SGPT 35 U/L (7.0-40); AST/SGOT 43 U/L (<34); CALCIUM LEVEL 8.9 MG/DL (8.5-10.1); CARBON DIOXIDE LEVEL 30 MMOL/L (20-31); CHLORIDE LEVEL 106 MMOL/L (98-107); CREATININE FOR GFR 1.23 MG/DL (0.55-1.30); GLOMERULAR FILTRATION RATE 51.9 (>51); POTASSIUM SERUM 4.1 MMOL/L (3.5-5.1); SODIUM LEVEL 145 MMOL/L (136-145)
[2025-04-24 22:17] LABS: FREE T4 1.26 NG/DL (0.89-1.76)
[2025-04-24 22:21] LABS: CPK CREATINE PHOSPHOKINASE 458 U/L (34-145); MB/CK RELATIVE INDEX 7.24 (< OR =4)
[2025-04-24] MEDS: NS 500 ML IV ONE (23:22)
[2025-04-25] MEDS: NS (Normal Saline) 0.9% 1,000 ML IV ONE (02:26)
[2025-04-25 04:45] VITALS: BP 92/51; TEMP 98.9; O2SAT 99
[2025-04-25] MEDS ORDERED: META28.32 JT (10:56)
[2025-04-25] MEDS ORDERED: [UNRECOGNIZED DRUG - CODE] PO (11:07)
[2025-04-25] MEDS ORDERED: GUAI100L55 JT (11:10)
== END 2025-04-25 05:04 | disposition home or self-care (01) ==
LOC: EDBD 18:36 → M ED 18:36
DX: E86.0 Dehydration (principal); R91.8 Other nonspecific abnormal finding of lung field; K21.9 Gastro-esophageal reflux disease without esophagitis; K59.00 Constipation, unspecified; F32.A Depression, unspecified; Z93.2 Ileostomy status; E07.9 Disorder of thyroid, unspecified; Z79.899 Other long term (current) drug therapy